=== PATIENT | male | born 1945 | race Native Hawaiian/Other Pacific Islander ===

== ENCOUNTER 2017-05-25 11:28 | Day surgery (SDC) | payer MEDICARE, BC ==
[2017-05-25 12:27] VITALS: BP 145/68; PULSE 87; TEMP 97.6
[2017-05-25 12:54] LABS: PROTHROMBIN TIME 10.9 SECONDS (9.7-12.2)
[2017-05-25] MEDS ORDERED: Lidocaine 1% w Epi 1:100,000 Inj ONE (12:59)
[2017-05-25] MEDS ORDERED: Iodixanol 320 MG/ML 200 ML BOTTLE IV ONE (12:59)
[2017-05-25 13:07] LABS: CALCIUM 9.2 mg/dl (8.6-10.4)
[2017-05-25] MEDS ORDERED: Midazolam 2 MG/2 ML VIAL ONE (13:20)
[2017-05-25] MEDS ORDERED: Iodixanol 320 MG/ML 100 ML BOTTLE IV ONE (15:17)
--- NOTE | 2017-05-25 15:50 | PCM.SURG1 ---
Surgeon's Initial Post Op Note - Surgeon's Notes Surgeon: katty [employer] Specialist: 0 Type of Anesthesia: IV Sedation Anesthesia Administered By: melissa Pre-Operative Diagnosis: ischemic foot ulcer left foot Operative Findings: focal 99% stenosis proximal popliteal artery. anterior tibial main vessel to foot , pt occluded peroneal diseased. perclose right Post-Operative Diagnosis: same Operation Performed: aortofemoral angiogram via right groin. selective catherization of left femoral artery. pathway atherectomy, dcb, and supera stent to left distal sfa/ popliteal. perclose right Specimen/Specimens Removed: 0 Estimated Blood Loss: EBL {In ML}: 100 Blood Products Given: N/A Drains Used: No Drains Post-Op Condition: Good Date of Surgery/Procedure: 05/25/17 Time of Surgery/Procedure: 15:52
--- NOTE | 2017-05-26 10:09 | OP ---
DATE: 05/25/2017 PREOPERATIVE DIAGNOSIS: Ischemic ulcer of left foot. PROCEDURES CARRIED OUT: Aortofemoral angiogram of the right groin with selective catheterization of the left femoral artery, pathway atherectomy, drug-coated balloon angioplasty, and then, subsequent placement of a Supera stent in the left proximal popliteal and distal superficial femoral artery. SURGEON: Kulwant Macias Jr., MD ASSISTANTS: None. ANESTHESIOLOGIST: Suresh Anderson DO ANESTHESIA: Local with sedation. INDICATIONS: The patient is a 72-year-old male, [place], on dialysis who presents with ischemic ulcers on the foot. OPERATIVE FINDINGS: The aorta, renal arteries, iliac arteries, common femoral arteries, and proximal portions of superficial femoral arteries are free of any significant occlusive disease. In the left leg, there was a focal stenosis at Derrek canal over 99%, just across the bone. Distal to this on the left leg, the posterior tibial artery was occluded, did not reconstitute the foot. The peroneal artery was diseased at its course and the anterior tibia provided most of the blood flow into the left foot. On the right side, detailed pictures were not taken below the knee, but basically showed a somewhat similar pattern. Subsequent to the performance of the diagnostic arteriogram, a stiff-angled guidewire was advanced over the aortic bifurcation and a 7-Spanish sheath placed into the distal portion of the superficial femoral artery. Using the roadmapping techniques, the lesion was crossed. Then, the patient was heparinized. The Pathway atherectomy device was used to open this and then, this was treated with drug-coated balloon and then subsequently primarily because this was an occlusion, we then deployed a Supera stent. We had placed a filter wire distally and as we attempted to do the filter wire, the Supera stent somehow became meshed and the wire was somewhat elongated at this point. We had to place additional stents. We eventually were able to get the filter wire out. Subsequently, there was a small gap between the stents and we had to place another stent in between. Nonetheless at the end of this, we had excellent apposition of the stent to the wall, we had brisk and free flow to the area of this previous stenosis/occlusion and good brisk flow into the foot without any residual defect. The operation was carried out. We then deployed a Perclose device in the right groin with good success. OPERATIONS CARRIED OUT: 1. Aortofemoral angiogram via right groin with selective catheterization of the left femoral artery. 2. Pathway atherectomy, drug-coated balloon angioplasty and deployment of Supera stent in the proximal popliteal left superficial femoral artery and deployment of Perclose device. Kulwant Macias Jr., MD cc: Dr. June Cavanaugh DPM
[2017-06-01 16:11] VITALS: RESP 22; O2SAT 98
== END 2017-05-25 19:00 | disposition home or self-care (01) ==
LOC: C.SPRAD 11:28
PROVIDERS: ATTEND Surgery Vascular Surgery
DX: L97.529 Non-pressure chronic ulcer of other part of left foot with unspecified severity (principal); Z99.2 Dependence on renal dialysis
CPT/HCPCS: 36218; 36415; 37227; 80048; 85610; 85730; C1724; C1725; C1766; C1769; C1876; C1884; C1887; C2623; J1644; J2250; J3010; Q9966; Q9967

== ENCOUNTER 2017-08-22 07:35 | Inpatient (IN) | payer BC, MEDICARE ==
--- NOTE | 2017-08-22 08:37 | C.PDOC ---
History Of Present Illness 72 y/o male with htn, dm, esrd on hd, last on Sat, due tomorrow, presents with non healing ulcers to left foot. pt has taken po antibiotics with no improvement. Time Seen by Provider: 08/22/17 08:01 Chief Complaint (Nursing): Abnormal Skin Integrity History Per: Patient History/Exam Limitations: no limitations Onset/Duration Of Symptoms: Days Current Symptoms Are (Timing): Still Present Past Medical History Reviewed: Historical Data, Nursing Documentation, Vital Signs Vital Signs: Last Vital Signs Temp 98.8 F 08/22/17 16:00 Pulse 84 08/22/17 16:00 Resp 20 08/22/17 16:00 BP 147/76 08/22/17 17:30 Pulse Ox 99 08/22/17 16:00 - Medical History PMH: HTN, Hypercholesterolemia, Chronic Kidney Disease Surgical History: No Surg Hx Family History: States: No Known Family Hx - Social History Hx Alcohol Use: No Hx Substance Use: No - Immunization History Hx Tetanus Toxoid Vaccination: No Hx Influenza Vaccination: No Hx Pneumococcal Vaccination: No Review Of Systems Cardiovascular: Negative for: Chest Pain Respiratory: Negative for: Shortness of Breath Musculoskeletal: Positive for: Foot Pain Skin: Negative for: Rash Neurological: Negative for: Weakness, Numbness Physical Exam - Physical Exam Appears: Non-toxic, No Acute Distress Skin: Warm, Dry, No Rash Head: Atraumatic, Normacephalic Oral Mucosa: Moist Neck: Normal ROM, Supple Cardiovascular: Rhythm Irregular Respiratory: Normal Breath Sounds, No Rales, No Rhonchi, No Wheezing Gastrointestinal/Abdominal: Soft, No Tenderness, No Guarding, No Rebound Extremity: Capillary Refill (<2 seconds), No Deformity, Other (AV fistular to right upper arm w/palpable thrill. Left lateral malleolus 1/2 dollar size ulcer. Open malodorous ulceration w/white sticky discharge along 5th matatarsal. ) Pulses: Left Dorsalis Pedis: Normal, Right Dorsalis Pedis: Normal Neurological/Psych: Oriented x3, Normal Motor, Normal Sensation ED Course And Treatment - Laboratory Results Result Diagrams: 08/22/17 09:05 08/22/17 10:02 O2 Sat by Pulse Oximetry: 98 (RA) Pulse Ox Interpretation: Normal Medical Decision Making Medical Decision Making: discussed with Dr Seema Watkins, will admit to her service, and get podiatry consult Dr Cavanaugh. Disposition - Disposition Disposition: HOSPITALIZED Disposition Time: 11:55 Condition: GOOD - Clinical Impression Clinical Impression: Infected ulcer of skin - PA / LOCOMOTIVE REPAIRER DIESEL / Resident Statement MD/DO has reviewed & agrees with the documentation as recorded. - Scribe Statement The provider has reviewed the documentation as recorded by the Micaibtyson Simpson All medical record entries made by the Chavez were at my direction and personally dictated by me. I have reviewed the chart and agree that the record accurately reflects my personal performance of the history, physical exam, medical decision making, and the department course for this patient. I have also personally directed, reviewed, and agree with the discharge instructions and disposition.
[2017-08-22 09:13] LABS: BASO % 0.4 % (0.0-2.0); EOS # 0.2 K/uL (0.0-0.7); EOS % 2.1 % (0.0-4.0); HEMOGLOBIN 10.9 g/dL (12.0-18.0); LYMPH # 0.5 K/uL (1.0-4.3); MEAN CORPUSCULAR HEMOGLOBIN 31.1 pg (27.0-31.0); MEAN CORPUSCULAR HGB CONC 32.4 g/dL (33.0-37.0); MEAN PLATELET VOLUME 8.4 fL (7.2-11.7); MONO # 0.7 K/uL (0.0-0.8); MONO % 7.9 % (0.0-10.0); NEUT # 7.8 K/uL (1.8-7.0); NEUT % 84.6 % (50.0-75.0); NRBC % 0.1 % (0.0-2.0); PLATELET COUNT 218 K/uL (130-400); RBC 3.52 Mil/uL (4.40-5.90); RED CELL DISTRIBUTION WIDTH 15.7 % (11.5-14.5); WHITE BLOOD COUNT 9.2 K/uL (4.8-10.8)
[2017-08-22 09:24] LABS: INR 1.3; PROTHROMBIN TIME 14.4 SECONDS (9.7-12.2)
--- NOTE | 2017-08-22 09:29 | RAD ---
Chest x-ray single frontal view History: Shortness of breath. Comparison: None available. Findings: Moderate venous congestion with patchy bibasilar airspace opacities. Small right pleural effusion. Right hilar prominence. Biapical pleural thickening with upper lobe granulomatous changes. Small nodular density projecting over the medial right lung apex. Calcification at the aortic knob. Mild cardiomegaly. Degenerative changes in the spine and shoulders. Right axillary stent in place. Impression: Moderate venous congestion with patchy bibasilar airspace opacities. Small right pleural effusion. Right hilar prominence. Biapical pleural thickening with upper lobe granulomatous changes. Small nodular density projecting over the medial right lung apex. Calcification at the aortic knob. Mild cardiomegaly. Degenerative changes in the spine and shoulders. Right axillary stent in place.
--- NOTE | 2017-08-22 09:41 | RAD ---
Left foot three views History: Ulcer. Comparison: None available. Findings: Large soft tissue ulceration seen at the lateral aspect of the midfoot from the midshaft of the 5th metatarsal bone to the level of the cuboid bone. Cortical irregularity seen along the lateral cortex at the base of the 5th metatarsal bone with some sclerosis. This may represent osteomyelitis, possibly acute on chronic. Correlation with MRI may be helpful if clinically indicated. Extensive vascular calcifications. Mild hallux valgus deformity. Degenerative changes in the midfoot. Plantar and dorsal calcaneal spurring. Impression: 1. Large soft tissue ulceration seen at the lateral aspect of the midfoot from the midshaft of the 5th metatarsal bone to the level of the cuboid bone. Cortical irregularity seen along the lateral cortex at the base of the 5th metatarsal bone with some sclerosis. This may represent osteomyelitis, possibly acute on chronic. Correlation with MRI may be helpful if clinically indicated. 2. Extensive vascular calcifications. 3. Mild hallux valgus deformity. 4. Degenerative changes in the midfoot. 5. Plantar and dorsal calcaneal spurring.
[2017-08-22] MEDS ORDERED: Piperacillin/Tazobact 3.375 gm 100 ML IVPB STA (09:50)
[2017-08-22 10:04] LABS: ANISOCYTOSIS SLIGHT; EOSINOPHIL 3 % (0-4); HYPOCHROMIC SLIGHT; LYMPHOCYTE 4 % (20-40); MONOCYTE 4 % (0-10); NEUTROPHIL 89 % (50-75); PLATELET ESTIMATE NORMAL (NORMAL); POLYCHROMIC SLIGHT; TOTAL CELLS COUNTED 100
[2017-08-22] MEDS ORDERED: Piperacillin/Tazobact 3.375 gm 100 ML IVPB ONE (10:19)
[2017-08-22] MEDS ORDERED: Vancomycin 1 GM 1 GM/250 ML BAG IVPB ONE (10:19)
[2017-08-22 10:21] LABS: ALB/GLOB RATIO 0.7 (1.0-2.1); ALBUMIN 3.1 g/dL (3.5-5.0); AST/SGOT 19 U/L (17-59); BLOOD UREA NITROGEN 46 mg/dL (9-20); CALCIUM 9.1 mg/dl (8.6-10.4); GFR AFRICAN-AMERICAN 12; GFR NON-AFRICAN AMERICAN 10
[2017-08-22 10:22] LABS: ALT/SGPT < 6 U/L (21-72)
[2017-08-22] MEDS ORDERED: Vancomycin 1 gm/NS 200 ml 1 GM/200 ML BAG IVPB ONE (11:00)
--- NOTE | 2017-08-22 11:26 | CP.PCM.CON ---
History of Present Illness - History of Present Illness History of Present Illness: hx of esrd cad severe pvd admitted with gangrene left foot / OM needs OR/ debridment when stable IV antibiotics ordered prognosis guarded Review of Systems - Review of Systems All systems: reviewed and no additional remarkable complaints except Past Patient History - Past Medical History & Family History Past Medical History?: Yes - Past Social History Smoking Status: Never Smoked - CARDIAC Hx Hypercholesterolemia: Yes Hx Hypertension: Yes - PULMONARY Hx Respiratory Disorders: No - NEUROLOGICAL Hx Neurological Disorder: No - HEENT Hx HEENT Problems: Yes Hx Cataracts: Yes (BILAT.) - RENAL Hx Chronic Kidney Disease: Yes - ENDOCRINE/METABOLIC Hx Endocrine Disorders: Yes Hx Diabetes Mellitus Type 2: Yes - HEMATOLOGICAL/ONCOLOGICAL Hx Blood Disorders: No - INTEGUMENTARY Hx Dermatological Problems: No - MUSCULOSKELETAL/RHEUMATOLOGICAL Hx Musculoskeletal Disorders: No - GASTROINTESTINAL Hx Gastrointestinal Disorders: No - GENITOURINARY/GYNECOLOGICAL Hx Genitourinary Disorders: No - PSYCHIATRIC Hx Substance Use: No - SURGICAL HISTORY Hx Surgeries: Yes Hx Arteriovenous Shunt: Yes (AV FISTULA RIGHT ARM) Hx Cataract Extraction: Yes (BILAT.) - ANESTHESIA Hx Anesthesia: Yes Hx Anesthesia Reactions: No Hx Malignant Hyperthermia: No Meds Allergies/Adverse Reactions: Allergies Allergy/AdvReac Type Severity Reaction Status Date / Time No Known Allergies Allergy Verified 05/23/17 15:07 - Medications Medications: Current Medications Vancomycin/Sodium Chloride (Vancomycin 1 Gm/Ns 200 Ml) 1 gm in 200 mls @ 133.333 mls/hr IVPB ONCE ONE PRN Reason: Protocol Stop: 08/22/17 12:29 Vancomycin HCl 1 gm/ Sodium (Chloride) 250 mls @ 166.7 mls/hr IVPB TUTHSA DON PRN Reason: Protocol Physical Exam - Constitutional Appears: Chronically Ill - Head Exam Head Exam: ATRAUMATIC - Eye Exam Eye Exam: PERRL - ENT Exam ENT Exam: Mucous Membranes Dry, Normal Oropharynx - Neck Exam Neck exam: Negative for: Lymphadenopathy - Respiratory Exam Respiratory Exam: Decreased Breath Sounds, Rhonchi - Cardiovascular Exam Cardiovascular Exam: REGULAR RHYTHM, +S1, +S2 - GI/Abdominal Exam GI & Abdominal Exam: Diminished Bowel Sounds, Soft. absent: Tenderness - Rectal Exam Rectal Exam: Deferred - Exam Exam: NORMAL INSPECTION - Extremities Exam Extremities exam: Positive for: pedal edema, tenderness. Negative for: calf tenderness, pedal pulses present Additional comments: ;arge ulcer lateral left foot with foul smelling exudate and pus - Back Exam Back exam: absent: CVA tenderness (L), CVA tenderness (R) - Neurological Exam Neurological exam: Alert, CN II-XII Intact, Oriented x3, Reflexes Normal - Psychiatric Exam Psychiatric exam: Depressed - Skin Skin Exam: Dry Results - Vital Signs Recent Vital Signs: Last Vital Signs Temp 98.6 F 08/22/17 11:09 Pulse 85 08/22/17 11:09 Resp 20 08/22/17 11:09 BP 170/86 H 08/22/17 11:09 Pulse Ox 94 L 08/22/17 11:09 - Labs Result Diagrams: 08/26/17 06:56 08/26/17 06:56 Labs: Laboratory Results - last 24 hr 08/22/17 08/22/17 08/22/17 09:05 09:05 10:02 WBC 9.2 RBC 3.52 L Hgb 10.9 L Hct 33.8 L MCV 96.0 H MCH 31.1 H MCHC 32.4 L RDW 15.7 H Plt Count 218 MPV 8.4 Neut % (Auto) 84.6 H Lymph % (Auto) 5.0 L [place] % (Auto) 7.9 Eos % (Auto) 2.1 Baso % (Auto) 0.4 Neut # (Auto) 7.8 H Lymph # (Auto) 0.5 L [place] # (Auto) 0.7 Eos # (Auto) 0.2 Baso # (Auto) 0.0 Neutrophils % (Manual) 89 H Lymphocytes % (Manual) 4 L Monocytes % (Manual) 4 Eosinophils % (Manual) 3 Platelet Estimate Normal Polychromasia Slight Hypochromasia (manual) Slight Anisocytosis (manual) Slight PT 14.4 H INR 1.3 APTT 38 H Sodium 137 Potassium 4.2 Chloride 96 L Carbon Dioxide 30 Anion Gap 15 BUN 46 H Creatinine 5.7 H Est GFR ( Amer) 12 Est GFR (Non-Af Amer) 10 Random Glucose 252 H Calcium 9.1 Total Bilirubin 0.6 AST 19 ALT < 6 L Alkaline Phosphatase 135 H Total Protein 7.4 Albumin 3.1 L Globulin 4.3 H Albumin/Globulin Ratio 0.7 L Assessment & Plan (1) Atrial fibrillation Status: Acute (2) ESRD (end stage renal disease) on dialysis Status: Acute (3) Gangrene associated with type 2 diabetes mellitus Status: Acute (4) Infected ulcer of skin Status: Acute (5) Non-insulin dependent type 2 diabetes mellitus Status: Acute (6) PVD (peripheral vascular disease) Status: Acute - Assessment and Plan (Free Text) Assessment: needs OR and IV rx for OM severe PVD- needs vascular re-eval
[2017-08-22] MEDS ORDERED: Piperacill/Tazo 2.25gm in Dex 2.25 GM/50 ML BAG IVPB SCH (11:30)
[2017-08-22] MEDS ORDERED: (Novolin R) Insulin Human Regular 100 units/ml vial SC SCH (13:01)
--- NOTE | 2017-08-22 15:40 | CP.PCM.CON ---
History of Present Illness - History of Present Illness History of Present Illness: Vascular surgery consult note for Dr. Macias Consulted for: chronic left foot wound with history of PVD Patient is a 72M with PMH of PVD with a stent placed by Dr. 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 Patient has had the ulcer for several months. Denies fevers and chills. PMH: DM, HTN, PVD, ESRD on HD, CAD PSH: Left leg angiocatheterization with stents ALL: NKDA Social: denies substances Review of Systems - Review of Systems All systems: reviewed and no additional remarkable complaints except (as per HPI ) Past Patient History - Past Medical History & Family History Past Medical History?: Yes - Past Social History Smoking Status: Never Smoked Alcohol: None Drugs: Denies - CARDIAC Hx Hypercholesterolemia: Yes Hx Hypertension: Yes - PULMONARY Hx Respiratory Disorders: No - NEUROLOGICAL Hx Neurological Disorder: No - HEENT Hx HEENT Problems: Yes Hx Cataracts: Yes (BILAT.) - RENAL Hx Chronic Kidney Disease: Yes - ENDOCRINE/METABOLIC Hx Endocrine Disorders: Yes Hx Diabetes Mellitus Type 2: Yes - HEMATOLOGICAL/ONCOLOGICAL Hx Blood Disorders: No - INTEGUMENTARY Hx Dermatological Problems: No - MUSCULOSKELETAL/RHEUMATOLOGICAL Hx Musculoskeletal Disorders: No - GASTROINTESTINAL Hx Gastrointestinal Disorders: No - GENITOURINARY/GYNECOLOGICAL Hx Genitourinary Disorders: No - PSYCHIATRIC Hx Substance Use: No - SURGICAL HISTORY Hx Surgeries: Yes Hx Arteriovenous Shunt: Yes (AV FISTULA RIGHT ARM) Hx Cataract Extraction: Yes (BILAT.) - ANESTHESIA Hx Anesthesia: Yes Hx Anesthesia Reactions: No Hx Malignant Hyperthermia: No Meds Allergies/Adverse Reactions: Allergies Allergy/AdvReac Type Severity Reaction Status Date / Time No Known Allergies Allergy Verified 05/23/17 15:07 - Medications Medications: Current Medications Calcium Acetate (Phoslo) 1,334 mg PO TID [facility] Last Admin: 08/22/17 14:19 Dose: 1,334 mg Glipizide (Glucotrol) 5 mg PO TIDAC [facility] Vancomycin/Sodium Chloride (Vancomycin 1 Gm/Ns 200 Ml) 1 gm in 200 mls @ 166.7 mls/hr IVPB TUTHSA DON PRN Reason: Protocol Stop: 08/28/17 10:01 Piperacillin Sod/Tazobactam Sod (Zosyn 2.25 Gm Iv Premix) 2.25 gm in 50 mls @ 100 mls/hr IVPB Q8H DON PRN Reason: Protocol Insulin Aspart (Novolog) 0 unit SC ACHS DON PRN Reason: Protocol Losartan Potassium (Cozaar) 50 mg PO DAILY DON Metoprolol Tartrate (Lopressor) 25 mg PO BID DON Rosuvastatin Calcium (Crestor) 5 mg PO HS DON Physical Exam - Constitutional Appears: Well, Non-toxic, No Acute Distress - Head Exam Head Exam: ATRAUMATIC, NORMOCEPHALIC - Eye Exam Eye Exam: Normal appearance. absent: Conjunctival injection, Scleral icterus - ENT Exam ENT Exam: Mucous Membranes Moist, Normal Oropharynx - Respiratory Exam Respiratory Exam: NORMAL BREATHING PATTERN. absent: Accessory Muscle Use, Respiratory Distress - Cardiovascular Exam Cardiovascular Exam: RRR - GI/Abdominal Exam GI & Abdominal Exam: absent: Distended - Extremities Exam Extremities exam: Negative for: calf tenderness, pedal edema Additional comments: Strong DP and PT auscultated on doppler Ulceration on the lateral edge of the left foot with eschar of necrotic tissue partially over the wound, foul smell, posterior left heel ulceration as well - Neurological Exam Neurological exam: Alert, Oriented x3 - Psychiatric Exam Psychiatric exam: Normal Affect, Normal Mood - Skin Skin Exam: Dry, Intact (except as noted above), Normal Color, Warm Results - Vital Signs Recent Vital Signs: Last Vital Signs Temp 97.4 F L 08/22/17 12:10 Pulse 85 08/22/17 12:10 Resp 20 08/22/17 12:10 BP 178/79 H 08/22/17 12:10 Pulse Ox 93 L 08/22/17 12:10 - Labs Result Diagrams: 08/22/17 09:05 08/22/17 10:02 Labs: Laboratory Results - last 24 hr 08/22/17 08/22/17 08/22/17 09:05 09:05 10:02 WBC 9.2 RBC 3.52 L Hgb 10.9 L Hct 33.8 L MCV 96.0 H MCH 31.1 H MCHC 32.4 L RDW 15.7 H Plt Count 218 MPV 8.4 Neut % (Auto) 84.6 H Lymph % (Auto) 5.0 L [place] % (Auto) 7.9 Eos % (Auto) 2.1 Baso % (Auto) 0.4 Neut # (Auto) 7.8 H Lymph # (Auto) 0.5 L [place] # (Auto) 0.7 Eos # (Auto) 0.2 Baso # (Auto) 0.0 Neutrophils % (Manual) 89 H Lymphocytes % (Manual) 4 L Monocytes % (Manual) 4 Eosinophils % (Manual) 3 Platelet Estimate Normal Polychromasia Slight Hypochromasia (manual) Slight Anisocytosis (manual) Slight PT 14.4 H INR 1.3 APTT 38 H Sodium 137 Potassium 4.2 Chloride 96 L Carbon Dioxide 30 Anion Gap 15 BUN 46 H Creatinine 5.7 H Est GFR ( Amer) 12 Est GFR (Non-Af Amer) 10 POC Glucose (mg/dL) Random Glucose 252 H Calcium 9.1 Total Bilirubin 0.6 AST 19 ALT < 6 L Alkaline Phosphatase 135 H Total Protein 7.4 Albumin 3.1 L Globulin 4.3 H Albumin/Globulin Ratio 0.7 L 08/22/17 12:37 WBC RBC Hgb Hct MCV MCH MCHC RDW Plt Count MPV Neut % (Auto) Lymph % (Auto) [place] % (Auto) Eos % (Auto) Baso % (Auto) Neut # (Auto) Lymph # (Auto) [place] # (Auto) Eos # (Auto) Baso # (Auto) Neutrophils % (Manual) Lymphocytes % (Manual) Monocytes % (Manual) Eosinophils % (Manual) Platelet Estimate Polychromasia Hypochromasia (manual) Anisocytosis (manual) PT INR APTT Sodium Potassium Chloride Carbon Dioxide Anion Gap BUN Creatinine Est GFR ( Amer) Est GFR (Non-Af Amer) POC Glucose (mg/dL) 227 H Random Glucose Calcium Total Bilirubin AST ALT Alkaline Phosphatase Total Protein Albumin Globulin Albumin/Globulin Ratio Assessment & Plan - Assessment and Plan (Free Text) Assessment: 72M with chronic left foot ulcers and history of PVD Plan: -CTA or arterial duplex to evaluate the vasculature patency in the left lower extremity depending on kidney function -Further vascular surgical intervention pending imaging results -Local wound care per podiatry -IV antibiotics Discussed with DR. Gilberto Ulloa, PGY2
[2017-08-22] MEDS: (Novolog) Insulin Aspart, Recombinant 100 u/ml 10 ml vial SC SCH ×2 (17:30→22:29)
[2017-08-22] MEDS: Piperacill/Tazo 2.25gm in Dex 2.25 GM/50 ML BAG IVPB SCH (19:19)
--- NOTE | 2017-08-22 20:13 | CP.PCM.CON ---
<TavoEdmond - Last Filed: 08/22/17 20:09> History of Present Illness - History of Present Illness History of Present Illness: Podiatry Consult Note- Dr. Cavanaugh 72 year old male referred to ED by attending, Dr Cavanaugh, for chronic left foot ulcer. Patient has had the ulcer for several months, for which Dr. Cavanaugh has been treating him. Pt has developed redness and mal-odor from and area which has exposed bone. Due to worsening presentation, attending is seeking advanced treatment. Pt deeis any pain to the area of complain. He denies recent fevers, chills, chest pain,sob, nausea, vomiting, and diarrhea. PMH: DM, HTN, PVD, ESRD on HD, CAD PSH: Left leg angiocatheterization with stents ALL: NKDA Social: denies substances Review of Systems - Review of Systems All systems: reviewed and no additional remarkable complaints except Past Patient History - Past Medical History & Family History Past Medical History?: Yes - Past Social History Smoking Status: Never Smoked Alcohol: None Drugs: Denies - CARDIAC Hx Hypercholesterolemia: Yes Hx Hypertension: Yes - PULMONARY Hx Respiratory Disorders: No - NEUROLOGICAL Hx Neurological Disorder: No - HEENT Hx HEENT Problems: Yes Hx Cataracts: Yes (BILAT.) - RENAL Hx Chronic Kidney Disease: Yes - ENDOCRINE/METABOLIC Hx Endocrine Disorders: Yes Hx Diabetes Mellitus Type 2: Yes - HEMATOLOGICAL/ONCOLOGICAL Hx Blood Disorders: No - INTEGUMENTARY Hx Dermatological Problems: No - MUSCULOSKELETAL/RHEUMATOLOGICAL Hx Musculoskeletal Disorders: No - GASTROINTESTINAL Hx Gastrointestinal Disorders: No - GENITOURINARY/GYNECOLOGICAL Hx Genitourinary Disorders: No - PSYCHIATRIC Hx Substance Use: No - SURGICAL HISTORY Hx Surgeries: Yes Hx Arteriovenous Shunt: Yes (AV FISTULA RIGHT ARM) Hx Cataract Extraction: Yes (BILAT.) - ANESTHESIA Hx Anesthesia: Yes Hx Anesthesia Reactions: No Hx Malignant Hyperthermia: No Meds Allergies/Adverse Reactions: Allergies Allergy/AdvReac Type Severity Reaction Status Date / Time No Known Allergies Allergy Verified 05/23/17 15:07 - Medications Medications: Current Medications Calcium Acetate (Phoslo) 1,334 mg PO TID [facility] Last Admin: 08/22/17 17:58 Dose: 1,334 mg Glipizide (Glucotrol) 5 mg PO TIDAC [facility] Last Admin: 08/22/17 17:30 Dose: 5 mg Vancomycin/Sodium Chloride (Vancomycin 1 Gm/Ns 200 Ml) 1 gm in 200 mls @ 166.7 mls/hr IVPB TUTHSA DON PRN Reason: Protocol Stop: 08/28/17 10:01 Piperacillin Sod/Tazobactam Sod (Zosyn 2.25 Gm Iv Premix) 2.25 gm in 50 mls @ 100 mls/hr IVPB Q8H DON PRN Reason: Protocol Last Admin: 08/22/17 19:19 Dose: 100 mls/hr Insulin Aspart (Novolog) 0 unit SC ACHS DON PRN Reason: Protocol Last Admin: 08/22/17 17:30 Dose: 1 unit Losartan Potassium (Cozaar) 50 mg PO DAILY DON Metoprolol Tartrate (Lopressor) 25 mg PO BID [facility] Last Admin: 08/22/17 17:30 Dose: 25 mg Rosuvastatin Calcium (Crestor) 5 mg PO HS [facility] Physical Exam - Constitutional Appears: Well, Non-toxic, No Acute Distress - Neurological Exam Neurological exam: Alert - Psychiatric Exam Psychiatric exam: Normal Affect, Normal Mood Results - Vital Signs Recent Vital Signs: Last Vital Signs Temp 98.8 F 08/22/17 16:00 Pulse 84 08/22/17 16:00 Resp 20 08/22/17 16:00 BP 147/76 08/22/17 17:30 Pulse Ox 98 08/22/17 18:48 - Labs Result Diagrams: 08/22/17 09:05 08/22/17 10:02 Labs: Laboratory Results - last 24 hr 08/22/17 08/22/17 08/22/17 09:05 09:05 10:02 WBC 9.2 RBC 3.52 L Hgb 10.9 L Hct 33.8 L MCV 96.0 H MCH 31.1 H MCHC 32.4 L RDW 15.7 H Plt Count 218 MPV 8.4 Neut % (Auto) 84.6 H Lymph % (Auto) 5.0 L [place] % (Auto) 7.9 Eos % (Auto) 2.1 Baso % (Auto) 0.4 Neut # (Auto) 7.8 H Lymph # (Auto) 0.5 L [place] # (Auto) 0.7 Eos # (Auto) 0.2 Baso # (Auto) 0.0 Neutrophils % (Manual) 89 H Lymphocytes % (Manual) 4 L Monocytes % (Manual) 4 Eosinophils % (Manual) 3 Platelet Estimate Normal Polychromasia Slight Hypochromasia (manual) Slight Anisocytosis (manual) Slight PT 14.4 H INR 1.3 APTT 38 H Sodium 137 Potassium 4.2 Chloride 96 L Carbon Dioxide 30 Anion Gap 15 BUN 46 H Creatinine 5.7 H Est GFR ( Amer) 12 Est GFR (Non-Af Amer) 10 POC Glucose (mg/dL) Random Glucose 252 H Calcium 9.1 Total Bilirubin 0.6 AST 19 ALT < 6 L Alkaline Phosphatase 135 H Total Protein 7.4 Albumin 3.1 L Globulin 4.3 H Albumin/Globulin Ratio 0.7 L 08/22/17 08/22/17 12:37 16:43 WBC RBC Hgb Hct MCV MCH MCHC RDW Plt Count MPV Neut % (Auto) Lymph % (Auto) [place] % (Auto) Eos % (Auto) Baso % (Auto) Neut # (Auto) Lymph # (Auto) [place] # (Auto) Eos # (Auto) Baso # (Auto) Neutrophils % (Manual) Lymphocytes % (Manual) Monocytes % (Manual) Eosinophils % (Manual) Platelet Estimate Polychromasia Hypochromasia (manual) Anisocytosis (manual) PT INR APTT Sodium Potassium Chloride Carbon Dioxide Anion Gap BUN Creatinine Est GFR ( Amer) Est GFR (Non-Af Amer) POC Glucose (mg/dL) 227 H 158 H Random Glucose Calcium Total Bilirubin AST ALT Alkaline Phosphatase Total Protein Albumin Globulin Albumin/Globulin Ratio Assessment & Plan - Assessment and Plan (Free Text) Assessment: Left lateral foot Torrez grade 3 ulceration secondary to diabetes. Plan: Pt seen and evaluated, with attending, Dr. Cavanaugh. Chart, labs, and vitals reviewed. Afebrile, WBC=9.2. IV antibiotics per ID. Surgical podiatric intervention indicated. Left foot debridement indicated. Pt discussed need for surgical intervention with Dr. Cavanaugh. Pt opted for surgical intervention after explanation of risks, benefits, complications and alternatives. Left foot Wet to dry saline & DSD dressing applied. Pt to OR 08/24/17 in afternoon for debridement. -Medical clearance requested. Podiatry will follow pt while inhouse. - Date & Time Date: 08/22/17 Time: 12:50 <Alfredo Cavanaugh - Last Filed: 08/23/17 08:26> Meds - Medications Medications: Current Medications Calcium Acetate (Phoslo) 1,334 mg PO TID [facility] Last Admin: 08/22/17 17:58 Dose: 1,334 mg Glipizide (Glucotrol) 5 mg PO TIDAC [facility] Last Admin: 08/23/17 08:14 Dose: 5 mg Vancomycin/Sodium Chloride (Vancomycin 1 Gm/Ns 200 Ml) 1 gm in 200 mls @ 166.7 mls/hr IVPB TUTHSA [facility] PRN Reason: Protocol Stop: 08/28/17 10:01 Piperacillin Sod/Tazobactam Sod (Zosyn 2.25 Gm Iv Premix) 2.25 gm in 50 mls @ 100 mls/hr IVPB Q8H DON PRN Reason: Protocol Last Admin: 08/23/17 02:50 Dose: 100 mls/hr Insulin Aspart (Novolog) 0 unit SC ACHS [facility] PRN Reason: Protocol Last Admin: 08/23/17 08:14 Dose: 1 unit Losartan Potassium (Cozaar) 50 mg PO DAILY [facility] Metoprolol Tartrate (Lopressor) 25 mg PO BID [facility] Last Admin: 08/22/17 17:30 Dose: 25 mg Rosuvastatin Calcium (Crestor) 5 mg PO HS [facility] Last Admin: 08/22/17 21:41 Dose: 5 mg Results - Vital Signs Recent Vital Signs: Last Vital Signs Temp 98.1 F 08/23/17 07:38 Pulse 87 08/23/17 07:38 Resp 20 08/23/17 07:38 BP 153/71 H 08/23/17 07:38 Pulse Ox 95 08/23/17 07:38 - Labs Result Diagrams: 08/22/17 09:05 08/22/17 10:02 Labs: Laboratory Results - last 24 hr 08/22/17 08/22/17 08/22/17 09:05 09:05 10:02 WBC 9.2 RBC 3.52 L Hgb 10.9 L Hct 33.8 L MCV 96.0 H MCH 31.1 H MCHC 32.4 L RDW 15.7 H Plt Count 218 MPV 8.4 Neut % (Auto) 84.6 H Lymph % (Auto) 5.0 L [place] % (Auto) 7.9 Eos % (Auto) 2.1 Baso % (Auto) 0.4 Neut # (Auto) 7.8 H Lymph # (Auto) 0.5 L [place] # (Auto) 0.7 Eos # (Auto) 0.2 Baso # (Auto) 0.0 Neutrophils % (Manual) 89 H Lymphocytes % (Manual) 4 L Monocytes % (Manual) 4 Eosinophils % (Manual) 3 Platelet Estimate Normal Polychromasia Slight Hypochromasia (manual) Slight Anisocytosis (manual) Slight PT 14.4 H INR 1.3 APTT 38 H Sodium 137 Potassium 4.2 Chloride 96 L Carbon Dioxide 30 Anion Gap 15 BUN 46 H Creatinine 5.7 H Est GFR ( Amer) 12 Est GFR (Non-Af Amer) 10 POC Glucose (mg/dL) Random Glucose 252 H Calcium 9.1 Total Bilirubin 0.6 AST 19 ALT < 6 L Alkaline Phosphatase 135 H Total Protein 7.4 Albumin 3.1 L Globulin 4.3 H Albumin/Globulin Ratio 0.7 L 08/22/17 08/22/17 08/22/17 12:37 16:43 21:39 WBC RBC Hgb Hct MCV MCH MCHC RDW Plt Count MPV Neut % (Auto) Lymph % (Auto) [place] % (Auto) Eos % (Auto) Baso % (Auto) Neut # (Auto) Lymph # (Auto) [place] # (Auto) Eos # (Auto) Baso # (Auto) Neutrophils % (Manual) Lymphocytes % (Manual) Monocytes % (Manual) Eosinophils % (Manual) Platelet Estimate Polychromasia Hypochromasia (manual) Anisocytosis (manual) PT INR APTT Sodium Potassium Chloride Carbon Dioxide Anion Gap BUN Creatinine Est GFR ( Amer) Est GFR (Non-Af Amer) POC Glucose (mg/dL) 227 H 158 H 224 H Random Glucose Calcium Total Bilirubin AST ALT Alkaline Phosphatase Total Protein Albumin Globulin Albumin/Globulin Ratio 08/23/17 07:34 WBC RBC Hgb Hct MCV MCH MCHC RDW Plt Count MPV Neut % (Auto) Lymph % (Auto) [place] % (Auto) Eos % (Auto) Baso % (Auto) Neut # (Auto) Lymph # (Auto) [place] # (Auto) Eos # (Auto) Baso # (Auto) Neutrophils % (Manual) Lymphocytes % (Manual) Monocytes % (Manual) Eosinophils % (Manual) Platelet Estimate Polychromasia Hypochromasia (manual) Anisocytosis (manual) PT INR APTT Sodium Potassium Chloride Carbon Dioxide Anion Gap BUN Creatinine Est GFR ( Amer) Est GFR (Non-Af Amer) POC Glucose (mg/dL) 179 H Random Glucose Calcium Total Bilirubin AST ALT Alkaline Phosphatase Total Protein Albumin Globulin Albumin/Globulin Ratio Attending/Attestation - Attestation I have personally seen and examined this patient.: Yes I have fully participated in the care of the patient.: Yes I have reviewed all pertinent clinical information: Yes Notes (Text): 08/23/17 08:25 Pt scheduled for wed at 1pm for debridement of left foot and ankle ulcers and application of Amniox skin graft.
--- NOTE | 2017-08-23 00:06 | CP.PCM.HP ---
History of Present Illness - History of Present Illness History of Present Illness: 72 years old [place] male hospitalized for debridement of a left foot ulcer . He is known to have a NIDDM, a chronic atrial fibrillation, an ESRD on HD, a HPTN,a PAD with s/p stent to the left SFA. Present on Admission - Present on Admission Any Indicators Present on Admission: No Review of Systems - Integumentary Integumentary: Non-Healing Lesions, Skin Ulcer Additional comments: Non healing ulcer of the left foot. Past Patient History - Tetanus Immunizations Tetanus Immunization: Unknown - Past Medical History & Family History Past Medical History?: Yes - Past Social History Smoking Status: Never Smoked Alcohol: None Drugs: Denies Home Situation {Lives}: With Family Domestic Violence: Negative - CARDIAC Hx Hypercholesterolemia: Yes Hx Hypertension: Yes - PULMONARY Hx Respiratory Disorders: No - NEUROLOGICAL Hx Neurological Disorder: No - HEENT Hx HEENT Problems: Yes Hx Cataracts: Yes (BILAT.) - RENAL Hx Chronic Kidney Disease: Yes - ENDOCRINE/METABOLIC Hx Endocrine Disorders: Yes Hx Diabetes Mellitus Type 2: Yes - HEMATOLOGICAL/ONCOLOGICAL Hx Blood Disorders: No - INTEGUMENTARY Hx Dermatological Problems: No - MUSCULOSKELETAL/RHEUMATOLOGICAL Hx Musculoskeletal Disorders: No - GASTROINTESTINAL Hx Gastrointestinal Disorders: No - GENITOURINARY/GYNECOLOGICAL Hx Genitourinary Disorders: No - PSYCHIATRIC Hx Substance Use: No - SURGICAL HISTORY Hx Surgeries: Yes Hx Arteriovenous Shunt: Yes (AV FISTULA RIGHT ARM) Hx Cataract Extraction: Yes (BILAT.) - ANESTHESIA Hx Anesthesia: Yes Hx Anesthesia Reactions: No Hx Malignant Hyperthermia: No Meds Allergies/Adverse Reactions: Allergies Allergy/AdvReac Type Severity Reaction Status Date / Time No Known Allergies Allergy Verified 05/23/17 15:07 Physical Exam - Constitutional Appears: No Acute Distress, Chronically Ill - Head Exam Head Exam: NORMAL INSPECTION - Eye Exam Eye Exam: Normal appearance Pupil Exam: NORMAL ACCOMODATION - ENT Exam ENT Exam: Normal Exam - Neck Exam Neck exam: Positive for: Normal Inspection - Respiratory Exam Respiratory Exam: Clear to Auscultation Bilateral - Cardiovascular Exam Cardiovascular Exam: Tachycardia, Irregular Rhythm - GI/Abdominal Exam GI & Abdominal Exam: Normal Bowel Sounds, Soft - Rectal Exam Rectal Exam: Deferred - Exam Exam: NORMAL INSPECTION - Extremities Exam Additional comments: Non-healing ulcer of the left foot. - Back Exam Back exam: NORMAL INSPECTION - Neurological Exam Neurological exam: Alert, Oriented x3 - Psychiatric Exam Psychiatric exam: Anxious - Skin Additional comments: Ulcer of the left foot. Results - Vital Signs Recent Vital Signs: Last Vital Signs Temp 98.8 F 08/22/17 16:00 Pulse 84 08/22/17 16:00 Resp 20 08/22/17 16:00 BP 147/76 08/22/17 17:30 Pulse Ox 98 08/22/17 18:48 - Labs Result Diagrams: 08/22/17 09:05 08/22/17 10:02 Labs: Laboratory Results - last 24 hr 08/22/17 08/22/17 08/22/17 09:05 09:05 10:02 WBC 9.2 RBC 3.52 L Hgb 10.9 L Hct 33.8 L MCV 96.0 H MCH 31.1 H MCHC 32.4 L RDW 15.7 H Plt Count 218 MPV 8.4 Neut % (Auto) 84.6 H Lymph % (Auto) 5.0 L [place] % (Auto) 7.9 Eos % (Auto) 2.1 Baso % (Auto) 0.4 Neut # (Auto) 7.8 H Lymph # (Auto) 0.5 L [place] # (Auto) 0.7 Eos # (Auto) 0.2 Baso # (Auto) 0.0 Neutrophils % (Manual) 89 H Lymphocytes % (Manual) 4 L Monocytes % (Manual) 4 Eosinophils % (Manual) 3 Platelet Estimate Normal Polychromasia Slight Hypochromasia (manual) Slight Anisocytosis (manual) Slight PT 14.4 H INR 1.3 APTT 38 H Sodium 137 Potassium 4.2 Chloride 96 L Carbon Dioxide 30 Anion Gap 15 BUN 46 H Creatinine 5.7 H Est GFR ( Amer) 12 Est GFR (Non-Af Amer) 10 POC Glucose (mg/dL) Random Glucose 252 H Calcium 9.1 Total Bilirubin 0.6 AST 19 ALT < 6 L Alkaline Phosphatase 135 H Total Protein 7.4 Albumin 3.1 L Globulin 4.3 H Albumin/Globulin Ratio 0.7 L 08/22/17 08/22/17 08/22/17 12:37 16:43 21:39 WBC RBC Hgb Hct MCV MCH MCHC RDW Plt Count MPV Neut % (Auto) Lymph % (Auto) [place] % (Auto) Eos % (Auto) Baso % (Auto) Neut # (Auto) Lymph # (Auto) [place] # (Auto) Eos # (Auto) Baso # (Auto) Neutrophils % (Manual) Lymphocytes % (Manual) Monocytes % (Manual) Eosinophils % (Manual) Platelet Estimate Polychromasia Hypochromasia (manual) Anisocytosis (manual) PT INR APTT Sodium Potassium Chloride Carbon Dioxide Anion Gap BUN Creatinine Est GFR ( Amer) Est GFR (Non-Af Amer) POC Glucose (mg/dL) 227 H 158 H 224 H Random Glucose Calcium Total Bilirubin AST ALT Alkaline Phosphatase Total Protein Albumin Globulin Albumin/Globulin Ratio Assessment & Plan (1) Infected ulcer of skin Assessment and Plan: On IV antibiotics by Dr Bailey. Status: Acute (2) Non-insulin dependent type 2 diabetes mellitus Assessment and Plan: To continue Glipizide, and Novolog S/C. Status: Acute (3) ESRD (end stage renal disease) on dialysis Assessment and Plan: HD as per polygraph operator Status: Acute (4) Atrial fibrillation Assessment and Plan: To hold Eliquis for planned debridement of the left foot ulcer. Status: Acute Decision To Admit - Pt Status Changed To: Hospital Disposition Of: Inpatient - Admit Certification Admit to Inpatient:: After my assessment, the patient will require hospitalization for at least two midnights. This is because of the severity of symptoms shown, intensity of services needed, and/or the medical risk in this patient being treated as an outpatient. - InPatient: Physician Admission Certification:: After my assessements, the patient requires hospitalization for at least 2 midnights. - . Bed Request Type: Regular Admitting Physician: Oz Watkins
[2017-08-23] MEDS: Piperacill/Tazo 2.25gm in Dex 2.25 GM/50 ML BAG IVPB SCH ×3 (02:50→19:29)
[2017-08-23] MEDS: (Novolog) Insulin Aspart, Recombinant 100 u/ml 10 ml vial SC SCH ×5 (08:04→21:47)
[2017-08-23] MEDS ORDERED: Iodixanol 320 mg/ml 150 ml Bottle IV ONE (09:00)
--- NOTE | 2017-08-23 09:37 | CP.PCM.PN ---
<Sabrina Lim - Last Filed: 08/23/17 10:39> Objective - Vital Signs/Intake and Output Vital Signs (last 24 hours): Temp Pulse Resp BP Pulse Ox 98.1 F 87 20 153/71 H 95 08/23/17 07:38 08/23/17 07:38 08/23/17 07:38 08/23/17 07:38 08/23/17 07:38 Intake and Output: 08/23/17 08/23/17 06:59 18:59 Intake Total 480 Balance 480 - Medications Medications: Current Medications Calcium Acetate (Phoslo) 1,334 mg PO TID [facility] Last Admin: 08/23/17 10:21 Dose: 1,334 mg Glipizide (Glucotrol) 5 mg PO TIDAC [facility] Last Admin: 08/23/17 08:14 Dose: 5 mg Vancomycin/Sodium Chloride (Vancomycin 1 Gm/Ns 200 Ml) 1 gm in 200 mls @ 166.7 mls/hr IVPB TUTHSA [facility] PRN Reason: Protocol Stop: 08/28/17 10:01 Piperacillin Sod/Tazobactam Sod (Zosyn 2.25 Gm Iv Premix) 2.25 gm in 50 mls @ 100 mls/hr IVPB Q8H DON PRN Reason: Protocol Last Admin: 08/23/17 02:50 Dose: 100 mls/hr Insulin Aspart (Novolog) 0 unit SC ACHS [facility] PRN Reason: Protocol Last Admin: 08/23/17 08:14 Dose: 1 unit Losartan Potassium (Cozaar) 50 mg PO DAILY [facility] Last Admin: 08/23/17 10:21 Dose: Not Given Metoprolol Tartrate (Lopressor) 25 mg PO BID [facility] Last Admin: 08/23/17 10:21 Dose: Not Given Rosuvastatin Calcium (Crestor) 5 mg PO HS [facility] Last Admin: 08/22/17 21:41 Dose: 5 mg - Labs Labs: 08/22/17 09:05 08/22/17 10:02 PT 14.4 SECONDS (9.7-12.2) H 08/22/17 09:05 INR 1.3 08/22/17 09:05 APTT 38 SECONDS (21-34) H 08/22/17 09:05 - Constitutional Appears: Well, Non-toxic, No Acute Distress - Head Exam Head Exam: ATRAUMATIC, NORMOCEPHALIC - Eye Exam Eye Exam: Normal appearance. absent: Conjunctival injection, Scleral icterus - ENT Exam ENT Exam: Mucous Membranes Moist, Normal Oropharynx - Respiratory Exam Respiratory Exam: Decreased Breath Sounds, NORMAL BREATHING PATTERN. absent: Accessory Muscle Use, Respiratory Distress <Carey Ulloa - Last Filed: 08/23/17 10:47> Subjective - Date & Time of Evaluation Date of Evaluation: 08/23/17 Time of Evaluation: 07:00 - Subjective Subjective: Patient seen and examined at bedside this AM. No adverse events overnight. Patient complains of foot pain well controlled Objective - Vital Signs/Intake and Output Vital Signs (last 24 hours): Temp Pulse Resp BP Pulse Ox 98.1 F 87 20 153/71 H 95 08/23/17 07:38 08/23/17 07:38 08/23/17 07:38 08/23/17 07:38 08/23/17 07:38 Intake and Output: 08/23/17 08/23/17 06:59 18:59 Intake Total 480 Balance 480 - Medications Medications: Current Medications Calcium Acetate (Phoslo) 1,334 mg PO TID [facility] Last Admin: 08/22/17 17:58 Dose: 1,334 mg Glipizide (Glucotrol) 5 mg PO TIDAC [facility] Last Admin: 08/23/17 08:14 Dose: 5 mg Vancomycin/Sodium Chloride (Vancomycin 1 Gm/Ns 200 Ml) 1 gm in 200 mls @ 166.7 mls/hr IVPB TUTHSA [facility] PRN Reason: Protocol Stop: 08/28/17 10:01 Piperacillin Sod/Tazobactam Sod (Zosyn 2.25 Gm Iv Premix) 2.25 gm in 50 mls @ 100 mls/hr IVPB Q8H [facility] PRN Reason: Protocol Last Admin: 08/23/17 02:50 Dose: 100 mls/hr Insulin Aspart (Novolog) 0 unit SC ACHS [facility] PRN Reason: Protocol Last Admin: 08/23/17 08:14 Dose: 1 unit Losartan Potassium (Cozaar) 50 mg PO DAILY [facility] Metoprolol Tartrate (Lopressor) 25 mg PO BID [facility] Last Admin: 08/22/17 17:30 Dose: 25 mg Rosuvastatin Calcium (Crestor) 5 mg PO HS [facility] Last Admin: 08/22/17 21:41 Dose: 5 mg - Labs Labs: 08/22/17 09:05 08/22/17 10:02 PT 14.4 SECONDS (9.7-12.2) H 08/22/17 09:05 INR 1.3 08/22/17 09:05 APTT 38 SECONDS (21-34) H 08/22/17 09:05 - Constitutional Appears: Well, Non-toxic, No Acute Distress - Head Exam Head Exam: NORMOCEPHALIC - Cardiovascular Exam Cardiovascular Exam: RRR - GI/Abdominal Exam GI & Abdominal Exam: absent: Distended - Extremities Exam Extremities Exam: absent: Calf Tenderness, Pedal Edema, Tenderness Additional comments: ulceration of left heel and left lateral border of the foot with foul smelling discharge. Foot is warm with good capillary refill - Neurological Exam Neurological Exam: Alert, Awake, Oriented x3 - Psychiatric Exam Psychiatric exam: Normal Affect, Normal Mood - Skin Skin Exam: Dry, Normal Color, Warm Assessment and Plan - Assessment and Plan (Free Text) Assessment: 72M with non-healing ulcer of the left foot and history of PVD Plan: -Patient is cleared from a vascular standpoint for surgery from podiatry. Patient has good dopplerable signals in the left pedal pulses -F/U CTA and arterial duplex for further assessment--likely will be non- contributory to current pathology -PRN pain management -Medical Management per primary Discussed with Dr. Gilberto Ulloa [id number]
--- NOTE | 2017-08-23 09:49 | CP.PCM.PN ---
<Edmond Vo - Last Filed: 08/23/17 12:58> Subjective - Date & Time of Evaluation Date of Evaluation: 08/23/17 Time of Evaluation: 12:30 - Subjective Subjective: Podiatry Progress Note- Dr. Cavanaugh 72 year old male seen at bedside with attending, Dr. Cavanaugh, for chronic left foot ulcers. Pt is clically sameand reports no acute overnight events. Pt denies any pain to the area of complaint. He denies recent fevers, chills, chest pain,sob, nausea, vomiting, and diarrhea. Objective - Vital Signs/Intake and Output Vital Signs (last 24 hours): Temp Pulse Resp BP Pulse Ox 98.1 F 87 20 153/71 H 95 08/23/17 07:38 08/23/17 07:38 08/23/17 07:38 08/23/17 07:38 08/23/17 07:38 Intake and Output: 08/23/17 08/23/17 06:59 18:59 Intake Total 480 Balance 480 - Medications Medications: Current Medications Calcium Acetate (Phoslo) 1,334 mg PO TID [facility] Last Admin: 08/22/17 17:58 Dose: 1,334 mg Glipizide (Glucotrol) 5 mg PO TIDAC [facility] Last Admin: 08/23/17 08:14 Dose: 5 mg Vancomycin/Sodium Chloride (Vancomycin 1 Gm/Ns 200 Ml) 1 gm in 200 mls @ 166.7 mls/hr IVPB TUTHSA [facility] PRN Reason: Protocol Stop: 08/28/17 10:01 Piperacillin Sod/Tazobactam Sod (Zosyn 2.25 Gm Iv Premix) 2.25 gm in 50 mls @ 100 mls/hr IVPB Q8H [facility] PRN Reason: Protocol Last Admin: 08/23/17 02:50 Dose: 100 mls/hr Insulin Aspart (Novolog) 0 unit SC ACHS [facility] PRN Reason: Protocol Last Admin: 08/23/17 08:14 Dose: 1 unit Losartan Potassium (Cozaar) 50 mg PO DAILY [facility] Metoprolol Tartrate (Lopressor) 25 mg PO BID [facility] Last Admin: 08/22/17 17:30 Dose: 25 mg Rosuvastatin Calcium (Crestor) 5 mg PO HS [facility] Last Admin: 08/22/17 21:41 Dose: 5 mg - Labs Labs: 08/22/17 09:05 08/22/17 10:02 PT 14.4 SECONDS (9.7-12.2) H 08/22/17 09:05 INR 1.3 08/22/17 09:05 APTT 38 SECONDS (21-34) H 08/22/17 09:05 - Constitutional Appears: Well, Non-toxic, No Acute Distress - Extremities Exam Additional comments: Left leg focused. DERM: Left lateral midfoot full thickness ulceration measuring 6.8x3.2 with necrotic-fibrotic base. Heavy mal-odor noted, no purulent drainage noted. No underminig of margins, no raised border. Left lateral anle wound measring 2.6 x 2.8 superficial ulceration with 80% granular to 20% fibrotic ulcerative base. No mal-odor, no purulent drainage noted. No undermining of margins, no raised borders. Neuro vascular status intact to right foot with pedal sensation intact, 2/4 DP and PT pulses and CRF to all digits <3 seconds within normal limits. No gross deformities noted. Manual muscle testing greaded 5/5 in all lower leg and pedal muscle groups. - Neurological Exam Neurological Exam: Alert, Awake, Oriented x3 - Psychiatric Exam Psychiatric exam: Normal Affect, Normal Mood Assessment and Plan - Assessment and Plan (Free Text) Assessment: 72 year old male with left lateral foot Torrez grade 3 ulceration secondary to diabetes & PVD. Plan: Pt seen and evaluated, with attending, Dr. Cavanaugh. Chart, labs, and vitals reviewed. Afebrile, WBC=9.2. IV antibiotics per ID. CTA and arterial duplex results-pending Surgical podiatric intervention indicated. Left foot debridement of left foot and ankle ulcers and application of Amniox skin graft. -Pt discussed surgical intervention plan with Dr. Cavanaugh. Risks, benefits, potential outcomes, complicating factors, and complications reviewed. with Pt including loss of limb. Pt aware and opted to proceed with surgical procedure. Left foot Wet to dry saline & DSD dressing applied. Pt to OR Tuesday08/24/17 in afternoon for debridement. -Medical clearance requested. -Vascular clearance - pending Podiatry will follow pt while inhouse. <Alfredo Cavanaugh - Last Filed: 08/23/17 13:16> Objective - Vital Signs/Intake and Output Vital Signs (last 24 hours): Temp Pulse Resp BP Pulse Ox 98.1 F 87 20 153/71 H 95 08/23/17 07:38 08/23/17 07:38 08/23/17 07:38 08/23/17 07:38 08/23/17 07:38 Intake and Output: 08/23/17 08/23/17 06:59 18:59 Intake Total 480 Balance 480 - Medications Medications: Current Medications Calcium Acetate (Phoslo) 1,334 mg PO TID [facility] Last Admin: 08/23/17 10:21 Dose: 1,334 mg Epoetin Linden (Procrit) 4,000 unit IV TTS [facility] Glipizide (Glucotrol) 5 mg PO TIDAC [facility] Last Admin: 08/23/17 12:01 Dose: 5 mg Vancomycin/Sodium Chloride (Vancomycin 1 Gm/Ns 200 Ml) 1 gm in 200 mls @ 166.7 mls/hr IVPB TUTHSA [facility] PRN Reason: Protocol Stop: 08/28/17 10:01 Last Admin: 08/23/17 10:49 Dose: Not Given Piperacillin Sod/Tazobactam Sod (Zosyn 2.25 Gm Iv Premix) 2.25 gm in 50 mls @ 100 mls/hr IVPB Q8H [facility] PRN Reason: Protocol Last Admin: 08/23/17 12:00 Dose: 100 mls/hr Insulin Aspart (Novolog) 0 unit SC ACHS [facility] PRN Reason: Protocol Last Admin: 08/23/17 12:03 Dose: 3 unit Losartan Potassium (Cozaar) 50 mg PO DAILY [facility] Last Admin: 08/23/17 10:21 Dose: Not Given Metoprolol Tartrate (Lopressor) 25 mg PO BID [facility] Last Admin: 08/23/17 10:21 Dose: Not Given Rosuvastatin Calcium (Crestor) 5 mg PO HS [facility] Last Admin: 08/22/17 21:41 Dose: 5 mg - Labs Labs: 08/22/17 09:05 08/22/17 10:02 PT 14.4 SECONDS (9.7-12.2) H 08/22/17 09:05 INR 1.3 08/22/17 09:05 APTT 38 SECONDS (21-34) H 08/22/17 09:05 Attending/Attestation - Attestation I have personally seen and examined this patient.: Yes I have fully participated in the care of the patient.: Yes I have reviewed all pertinent clinical information, including history, physical exam and plan: Yes Notes (Text): 08/23/17 13:14 Pt seen at bedside with resident for left foot and ankle ulcers. Pt is scheduled for tomorrow at 1 PM for debridement of left foot, ankle and heel ulcers with application of artificial skin graft (Amniox). Pt understands that this is a limb salvage procedure and if healing is compromised future surgery and/or limb loss is possible. Pt has been cleared by Vascular to proceed with debridement. Awaiting medical clearance. Pre op orders will be written for NPO.
--- NOTE | 2017-08-23 09:52 | CP.PCM.CON ---
History of Present Illness - History of Present Illness History of Present Illness: Patient is a 72M with PMH of PVD with a stent placed by Dr. Macias in the left SFA and popliteal artery who was referred to the ER by his solution engineer for worsening left foot ulcer. Patient has had the ulcer for several months. Denies fevers and chills. Last hd tuesday, pt on TTS schedule, has lue avf for access PMH: DM, HTN, PVD, ESRD on HD, CAD, chronic a fib PSH: Left leg angiocatheterization with stents. lue av fistula ALL: NKDA Social: no toxic habits Review of Systems - Review of Systems All systems: reviewed and no additional remarkable complaints except (no n/v/d/ sob/cp/dizziness/headache/weakness/numbness/fevers/chills/cough/rash) Past Patient History - Tetanus Immunizations Tetanus Immunization: Unknown - Past Medical History & Family History Past Medical History?: Yes - Past Social History Smoking Status: Never Smoked Alcohol: None Drugs: Denies Home Situation {Lives}: With Family Domestic Violence: Negative - CARDIAC Hx Hypercholesterolemia: Yes Hx Hypertension: Yes - PULMONARY Hx Respiratory Disorders: No - NEUROLOGICAL Hx Neurological Disorder: No - HEENT Hx HEENT Problems: Yes Hx Cataracts: Yes (BILAT.) - RENAL Hx Chronic Kidney Disease: Yes - ENDOCRINE/METABOLIC Hx Endocrine Disorders: Yes Hx Diabetes Mellitus Type 2: Yes - HEMATOLOGICAL/ONCOLOGICAL Hx Blood Disorders: No - INTEGUMENTARY Hx Dermatological Problems: No - MUSCULOSKELETAL/RHEUMATOLOGICAL Hx Musculoskeletal Disorders: No - GASTROINTESTINAL Hx Gastrointestinal Disorders: No - GENITOURINARY/GYNECOLOGICAL Hx Genitourinary Disorders: No - PSYCHIATRIC Hx Substance Use: No - SURGICAL HISTORY Hx Surgeries: Yes Hx Arteriovenous Shunt: Yes (AV FISTULA RIGHT ARM) Hx Cataract Extraction: Yes (BILAT.) - ANESTHESIA Hx Anesthesia: Yes Hx Anesthesia Reactions: No Hx Malignant Hyperthermia: No Meds Allergies/Adverse Reactions: Allergies Allergy/AdvReac Type Severity Reaction Status Date / Time No Known Allergies Allergy Verified 05/23/17 15:07 - Medications Medications: Current Medications Calcium Acetate (Phoslo) 1,334 mg PO TID [facility] Last Admin: 08/22/17 17:58 Dose: 1,334 mg Glipizide (Glucotrol) 5 mg PO TIDAC [facility] Last Admin: 08/23/17 08:14 Dose: 5 mg Vancomycin/Sodium Chloride (Vancomycin 1 Gm/Ns 200 Ml) 1 gm in 200 mls @ 166.7 mls/hr IVPB TUTHSA [facility] PRN Reason: Protocol Stop: 08/28/17 10:01 Piperacillin Sod/Tazobactam Sod (Zosyn 2.25 Gm Iv Premix) 2.25 gm in 50 mls @ 100 mls/hr IVPB Q8H [facility] PRN Reason: Protocol Last Admin: 08/23/17 02:50 Dose: 100 mls/hr Insulin Aspart (Novolog) 0 unit SC ACHS [facility] PRN Reason: Protocol Last Admin: 08/23/17 08:14 Dose: 1 unit Losartan Potassium (Cozaar) 50 mg PO DAILY [facility] Metoprolol Tartrate (Lopressor) 25 mg PO BID [facility] Last Admin: 08/22/17 17:30 Dose: 25 mg Rosuvastatin Calcium (Crestor) 5 mg PO HS [facility] Last Admin: 08/22/17 21:41 Dose: 5 mg Physical Exam - Constitutional Appears: Non-toxic, No Acute Distress, Chronically Ill - Head Exam Head Exam: ATRAUMATIC, NORMAL INSPECTION - Eye Exam Eye Exam: Normal appearance Pupil Exam: PERRL - ENT Exam ENT Exam: Mucous Membranes Moist, Normal Exam - Neck Exam Neck exam: Positive for: Normal Inspection - Respiratory Exam Respiratory Exam: Clear to Auscultation Bilateral, NORMAL BREATHING PATTERN - Cardiovascular Exam Cardiovascular Exam: Irregular Rhythm - GI/Abdominal Exam GI & Abdominal Exam: Distended, Normal Bowel Sounds - Extremities Exam Additional comments: lue avf w/ thrill dressing left foot Results - Vital Signs Recent Vital Signs: Last Vital Signs Temp 98.1 F 08/23/17 07:38 Pulse 87 08/23/17 07:38 Resp 20 08/23/17 07:38 BP 153/71 H 08/23/17 07:38 Pulse Ox 95 08/23/17 07:38 - Labs Result Diagrams: 08/22/17 09:05 08/22/17 10:02 Labs: Laboratory Results - last 24 hr 08/22/17 08/22/17 08/22/17 09:05 10:02 12:37 Neutrophils % (Manual) 89 H Lymphocytes % (Manual) 4 L Monocytes % (Manual) 4 Eosinophils % (Manual) 3 Platelet Estimate Normal Polychromasia Slight Hypochromasia (manual) Slight Anisocytosis (manual) Slight Sodium 137 Potassium 4.2 Chloride 96 L Carbon Dioxide 30 Anion Gap 15 BUN 46 H Creatinine 5.7 H Est GFR ( Amer) 12 Est GFR (Non-Af Amer) 10 POC Glucose (mg/dL) 227 H Random Glucose 252 H Calcium 9.1 Total Bilirubin 0.6 AST 19 ALT < 6 L Alkaline Phosphatase 135 H Total Protein 7.4 Albumin 3.1 L Globulin 4.3 H Albumin/Globulin Ratio 0.7 L 08/22/17 08/22/17 08/23/17 16:43 21:39 07:34 Neutrophils % (Manual) Lymphocytes % (Manual) Monocytes % (Manual) Eosinophils % (Manual) Platelet Estimate Polychromasia Hypochromasia (manual) Anisocytosis (manual) Sodium Potassium Chloride Carbon Dioxide Anion Gap BUN Creatinine Est GFR ( Amer) Est GFR (Non-Af Amer) POC Glucose (mg/dL) 158 H 224 H 179 H Random Glucose Calcium Total Bilirubin AST ALT Alkaline Phosphatase Total Protein Albumin Globulin Albumin/Globulin Ratio Assessment & Plan (1) Atrial fibrillation Status: Acute (2) ESRD (end stage renal disease) on dialysis Status: Acute (3) Infected ulcer of skin Status: Acute (4) Non-insulin dependent type 2 diabetes mellitus Status: Acute - Assessment and Plan (Free Text) Assessment: maintain hd tts schedule, today after ct angiogram f/u vascular and ID recs bp acceptable hgb acceptable, lytes acceptable
[2017-08-23] MEDS: Vancomycin 1 gm/NS 200 ml 1 GM/200 ML BAG IVPB SCH ×2 (10:49→16:01)
--- NOTE | 2017-08-23 11:03 | CP.PCM.PN ---
Subjective - Date & Time of Evaluation Date of Evaluation: 08/23/17 Time of Evaluation: 07:00 - Subjective Subjective: denies pain dry ulcer left heel necrotic foul smelling ulcer left lat foot Objective - Vital Signs/Intake and Output Vital Signs (last 24 hours): Temp Pulse Resp BP Pulse Ox 98.1 F 87 20 153/71 H 95 08/23/17 07:38 08/23/17 07:38 08/23/17 07:38 08/23/17 07:38 08/23/17 07:38 Intake and Output: 08/23/17 08/23/17 06:59 18:59 Intake Total 480 Balance 480 - Medications Medications: Current Medications Calcium Acetate (Phoslo) 1,334 mg PO TID [facility] Last Admin: 08/23/17 10:21 Dose: 1,334 mg Glipizide (Glucotrol) 5 mg PO TIDAC [facility] Last Admin: 08/23/17 08:14 Dose: 5 mg Vancomycin/Sodium Chloride (Vancomycin 1 Gm/Ns 200 Ml) 1 gm in 200 mls @ 166.7 mls/hr IVPB TUTHSA [facility] PRN Reason: Protocol Stop: 08/28/17 10:01 Last Admin: 08/23/17 10:49 Dose: Not Given Piperacillin Sod/Tazobactam Sod (Zosyn 2.25 Gm Iv Premix) 2.25 gm in 50 mls @ 100 mls/hr IVPB Q8H [facility] PRN Reason: Protocol Last Admin: 08/23/17 02:50 Dose: 100 mls/hr Insulin Aspart (Novolog) 0 unit SC ACHS [facility] PRN Reason: Protocol Last Admin: 08/23/17 08:14 Dose: 1 unit Losartan Potassium (Cozaar) 50 mg PO DAILY [facility] Last Admin: 08/23/17 10:21 Dose: Not Given Metoprolol Tartrate (Lopressor) 25 mg PO BID [facility] Last Admin: 08/23/17 10:21 Dose: Not Given Rosuvastatin Calcium (Crestor) 5 mg PO HS [facility] Last Admin: 08/22/17 21:41 Dose: 5 mg - Labs Labs: 08/22/17 09:05 08/22/17 10:02 PT 14.4 SECONDS (9.7-12.2) H 08/22/17 09:05 INR 1.3 08/22/17 09:05 APTT 38 SECONDS (21-34) H 08/22/17 09:05 - Constitutional Appears: Non-toxic, Chronically Ill - Head Exam Head Exam: NORMOCEPHALIC - Eye Exam Eye Exam: PERRL - ENT Exam ENT Exam: Mucous Membranes Dry - Neck Exam Neck Exam: absent: Lymphadenopathy - Respiratory Exam Respiratory Exam: Decreased Breath Sounds - Cardiovascular Exam Cardiovascular Exam: REGULAR RHYTHM - GI/Abdominal Exam GI & Abdominal Exam: Distended - Rectal Exam Rectal Exam: Deferred - Exam Exam: NORMAL INSPECTION - Extremities Exam Extremities Exam: Pedal Edema. absent: Calf Tenderness, Normal Inspection, Tenderness - Back Exam Back Exam: absent: CVA tenderness (L), CVA tenderness (R), paraspinal tenderness - Neurological Exam Neurological Exam: Alert, Awake, Oriented x3 Neuro motor strength exam: Left Upper Extremity: 3, Right Upper Extremity: 3, Left Lower Extremity: 3, Right Lower Extremity: 3 - Psychiatric Exam Psychiatric exam: Depressed Assessment and Plan (1) Gangrene associated with type 2 diabetes mellitus Status: Acute (2) Atrial fibrillation Status: Acute (3) ESRD (end stage renal disease) on dialysis Status: Acute (4) Non-insulin dependent type 2 diabetes mellitus Status: Acute - Assessment and Plan (Free Text) Assessment: severe pvd with gangrenous ulcer left foot prognosis for limb salvage guarded
[2017-08-23] MEDS ORDERED: Vancomycin 1 gm/NS 200 ml 1 GM/200 ML BAG IVPB SCH (11:25)
--- NOTE | 2017-08-23 14:22 | CT ---
PROCEDURE: CT Angiography Abdomen, Pelvis and Lower Extremity with Contrast HISTORY: pvd left leg COMPARISON: CT angiography of the bilateral lower extremities dated 05/09/2017. TECHNIQUE: Technique: CT angiography of the abdomen, pelvis and bilateral lower extremities performed in the arterial phase of enhancement. Coronal and sagittal reformats, and well as rotating MIP images of the vessels generated at the workstation. Intravenous contrast dose: 150 mL Visipaque 320 Radiation dose: Total exam DLP = 1262.8 mGy-cm. This CT exam was performed using one or more of the following dose reduction techniques: Automated exposure control, adjustment of the mA and/or kV according to patient size, and/or use of iterative reconstruction technique. FINDINGS: CT ANGIOGRAPHY: ABDOMINAL AORTA:: Calcific atherosclerosis without aneurysm or stenosis MAJOR AORTIC BRANCHES: Celiac Torrance: Calcific atherosclerosis, but patent. Superior mesenteric artery: Calcific atherosclerosis, but patent. Inferior mesenteric artery: Calcific atherosclerosis, but patent. Renal arteries: Small in caliber right renal artery with ostial calcific atherosclerosis. Pain left renal artery. PELVIC ARTERIES: Right Common Iliac: Calcific atherosclerosis, but patent. Right External Iliac: Calcific atherosclerosis, but patent. Right Internal Iliac: Calcific atherosclerosis, but patent. Left Common Iliac: Calcific atherosclerosis, but patent. Left External Iliac: Calcific atherosclerosis, but patent. Left Internal Iliac: Calcific atherosclerosis, but patent. RIGHT LOWER EXTREMITY ARTERIES: Right Common Femoral: Calcific atherosclerosis, but patent. Right Superficial Femoral: Calcific atherosclerosis, but patent. Mild to moderate short-segment stenosis at the femoral-popliteal junction. Right Profunda Femoris: Calcific atherosclerosis, but patent. Right Popliteal:Calcific atherosclerosis, but patent. Mild to moderate short-segment stenosis at the femoral-popliteal junction. Right Anterior Tibial: Severe focal stenosis/ near occlusion proximally, otherwise patent. Right Tibioperoneal Trunk: Calcific atherosclerosis, but patent. Right Posterior Tibial: Calcific atherosclerosis, but patent. Right Peroneal: Calcific atherosclerosis, but patent. Right dorsalis pedis : Calcific atherosclerosis, but patent. LEFT LOWER EXTREMITY ARTERIES: Left Common Femoral: Calcific atherosclerosis, but patent. Left Superficial Femoral: Calcific atherosclerosis, but patent. Patent indwelling mid/ distal stent, new from the prior study. Left Profunda Femoris: Calcific atherosclerosis, but patent. Left Popliteal: Calcific atherosclerosis, but patent. Patent indwelling proximal stent, new from the prior study. Left Anterior Tibial: Calcific atherosclerosis, but patent. Left Tibioperoneal Trunk: Calcific atherosclerosis, with focal severe stenosis before bifurcation. Left Posterior Tibial: Occluded from origin. Heavy arterial wall calcifications limits assessment for distal reconstitution. Left Peroneal: Calcific atherosclerosis, but patent. Left Dorsalis pedis: Calcific atherosclerosis, but patent. NON-ANGIOGRAPHIC ASPECT OF THE EXAM: LOWER THORAX: Moderate right and small left pleural effusions with subjacent atelectasis. Cardiomegaly. LIVER: Unremarkable. No gross lesion or ductal dilatation. GALLBLADDER AND BILE DUCTS: Unremarkable. PANCREAS: Unremarkable. No gross lesion or ductal dilatation. SPLEEN: Unremarkable. ADRENALS: Unremarkable. No mass. KIDNEYS AND URETERS: Unremarkable. No hydronephrosis. No solid mass. STOMACH AND BOWEL: Unremarkable. No obstruction. No gross mural thickening. APPENDIX: Normal appendix. PERITONEUM: Small volume pelvic ascites. Small amount of fluid in the left pericolic gutter No free air. LYMPH NODES: Unremarkable. No enlarged lymph nodes. BLADDER: Unremarkable. REPRODUCTIVE: Unremarkable. BONES: No acute fracture. OTHER FINDINGS: Subcutaneous gas near the left 5th digit in the foot. IMPRESSION: Right lower extremity: Diffuse calcific atherosclerosis. Mild to moderate short-segment stenosis at the femoral-popliteal junction, similar to the prior study. Severe focal stenosis/ near occlusion of the proximal right anterior tibial artery, similar to the prior study. Three-vessel runoff to the foot. Left lower extremity: Diffuse calcific atherosclerosis. Interval placement of a stent extending from the mid superficial femoral artery to the popliteal artery. Focal severe stenosis of the tibioperoneal trunk, just before the bifurcation, similar to the prior study. Stable occlusion of the left posterior tibial artery with limited evaluation of the mid/distal portions due to heavy arterial wall calcifications. Two-vessel runoff to the foot. Stable stenosis of the right renal artery ostium with small caliber main renal artery. Subcutaneous gas near the 5th digit in the left foot. Moderate right and small left pleural effusions with subjacent atelectasis. Nonspecific small volume pelvic ascites and fluid in the left pericolic gutter
[2017-08-23] MEDS: EPOETIN ALFA 4,000 UNIT/ML ML Dialysis IV SCH (14:58)
--- NOTE | 2017-08-23 20:23 | CP.PCM.PN ---
Subjective - Date & Time of Evaluation Date of Evaluation: 08/23/17 Time of Evaluation: 20:21 - Subjective Subjective: Patient has no complaint. A Persantine nuclear myocardial perfusion imaging on did not reveal any myocardial ischemia induced by IV Persantine. For a debridement of the left foot and ankle ulcer in AM. Objective - Vital Signs/Intake and Output Vital Signs (last 24 hours): Temp Pulse Resp BP Pulse Ox 98.7 F 84 12 131/80 96 08/23/17 17:20 08/23/17 17:20 08/23/17 17:20 08/23/17 18:54 08/23/17 17:20 Intake and Output: 08/23/17 08/24/17 18:59 06:59 Intake Total 530 Balance 530 - Medications Medications: Current Medications Calcium Acetate (Phoslo) 1,334 mg PO TID [facility] Last Admin: 08/23/17 18:53 Dose: 1,334 mg Epoetin Linden (Procrit) 4,000 unit IV TTS [facility] Last Admin: 08/23/17 14:58 Dose: 4,000 unit Glipizide (Glucotrol) 5 mg PO TIDAC [facility] Last Admin: 08/23/17 17:08 Dose: Not Given Vancomycin/Sodium Chloride (Vancomycin 1 Gm/Ns 200 Ml) 1 gm in 200 mls @ 166.7 mls/hr IVPB TUTHSA [facility] PRN Reason: Protocol Stop: 08/28/17 10:01 Last Admin: 08/23/17 16:01 Dose: 166.7 mls/hr Piperacillin Sod/Tazobactam Sod (Zosyn 2.25 Gm Iv Premix) 2.25 gm in 50 mls @ 100 mls/hr IVPB Q8H [facility] PRN Reason: Protocol Last Admin: 08/23/17 19:29 Dose: 100 mls/hr Insulin Aspart (Novolog) 0 unit SC ACHS [facility] PRN Reason: Protocol Last Admin: 08/23/17 16:47 Dose: Not Given Losartan Potassium (Cozaar) 50 mg PO DAILY [facility] Last Admin: 08/23/17 10:21 Dose: Not Given Metoprolol Tartrate (Lopressor) 25 mg PO BID [facility] Last Admin: 08/23/17 18:54 Dose: 25 mg Rosuvastatin Calcium (Crestor) 5 mg PO HS [facility] Last Admin: 08/22/17 21:41 Dose: 5 mg - Labs Labs: 08/22/17 09:05 08/22/17 10:02 PT 14.4 SECONDS (9.7-12.2) H 08/22/17 09:05 INR 1.3 08/22/17 09:05 APTT 38 SECONDS (21-34) H 08/22/17 09:05 - Head Exam Head Exam: NORMAL INSPECTION - Eye Exam Eye Exam: Normal appearance - ENT Exam ENT Exam: Normal Exam - Neck Exam Neck Exam: Normal Inspection - Respiratory Exam Respiratory Exam: Clear to Ausculation Bilateral, NORMAL BREATHING PATTERN - Cardiovascular Exam Cardiovascular Exam: Irregular Rhythm, Murmur - GI/Abdominal Exam GI & Abdominal Exam: Soft, Normal Bowel Sounds - Rectal Exam Rectal Exam: Deferred - Extremities Exam Additional comments: Foul-smelling ulcer of the left foot. - Back Exam Back Exam: NORMAL INSPECTION - Neurological Exam Neurological Exam: Alert, Awake, Oriented x3 - Psychiatric Exam Psychiatric exam: Anxious Assessment and Plan (1) Infected ulcer of skin Assessment & Plan: On IV antibiotics. For debridement in AM. Status: Acute (2) Non-insulin dependent type 2 diabetes mellitus Status: Acute (3) ESRD (end stage renal disease) on dialysis Status: Acute (4) Atrial fibrillation Assessment & Plan: Hold Eliquis for surgery in AM. Status: Acute
--- NOTE | 2017-08-23 21:51 | CARD ---
APPROVED REPORT EKG Measurement Heart [id number] <Conclusion> Atrial fibrillation Low voltage QRS Abnormal ECG
[2017-08-24] MEDS: Piperacill/Tazo 2.25gm in Dex 2.25 GM/50 ML BAG IVPB SCH ×3 (03:30→18:15)
[2017-08-24] MEDS: (Novolog) Insulin Aspart, Recombinant 100 u/ml 10 ml vial SC SCH ×4 (07:54→21:38)
[2017-08-24 08:27] LABS: ALB/GLOB RATIO 0.7 (1.0-2.1); ALBUMIN 2.9 g/dL (3.5-5.0); ALT/SGPT < 6 U/L (21-72); AST/SGOT 17 U/L (17-59); BLOOD UREA NITROGEN 32 mg/dL (9-20); GFR AFRICAN-AMERICAN 13; GFR NON-AFRICAN AMERICAN 11
--- NOTE | 2017-08-24 10:52 | CP.PCM.PN ---
Subjective - Date & Time of Evaluation Date of Evaluation: 08/24/17 Time of Evaluation: 10:50 - Subjective Subjective: seen and examined s/p ct angiogram s/p hd yesterday c/o left foot pain no f/c/sob/cp/n/v/d/dizziness/rash/headache Objective - Vital Signs/Intake and Output Vital Signs (last 24 hours): Temp Pulse Resp BP Pulse Ox 98.7 F 79 20 130/91 H 95 08/24/17 08:35 08/24/17 08:35 08/24/17 08:35 08/24/17 09:58 08/24/17 08:35 Intake and Output: 08/24/17 08/24/17 06:59 18:59 Intake Total 810 Balance 810 - Medications Medications: Current Medications Calcium Acetate (Phoslo) 1,334 mg PO TID [facility] Last Admin: 08/24/17 09:59 Dose: Not Given Epoetin Linden (Procrit) 4,000 unit IV TTS [facility] Last Admin: 08/23/17 14:58 Dose: 4,000 unit Glipizide (Glucotrol) 5 mg PO TIDAC [facility] Last Admin: 08/24/17 07:54 Dose: Not Given Vancomycin/Sodium Chloride (Vancomycin 1 Gm/Ns 200 Ml) 1 gm in 200 mls @ 166.7 mls/hr IVPB TUTHSA [facility] PRN Reason: Protocol Stop: 08/28/17 10:01 Last Admin: 08/23/17 16:01 Dose: 166.7 mls/hr Piperacillin Sod/Tazobactam Sod (Zosyn 2.25 Gm Iv Premix) 2.25 gm in 50 mls @ 100 mls/hr IVPB Q8H [facility] PRN Reason: Protocol Last Admin: 08/24/17 03:30 Dose: 100 mls/hr Insulin Aspart (Novolog) 0 unit SC ACHS [facility] PRN Reason: Protocol Last Admin: 08/24/17 07:54 Dose: Not Given Losartan Potassium (Cozaar) 50 mg PO DAILY [facility] Last Admin: 08/24/17 09:59 Dose: 50 mg Metoprolol Tartrate (Lopressor) 25 mg PO BID [facility] Last Admin: 08/24/17 09:58 Dose: 25 mg Rosuvastatin Calcium (Crestor) 5 mg PO HS [facility] Last Admin: 08/23/17 21:46 Dose: 5 mg - Labs Labs: 08/22/17 09:05 08/24/17 07:58 PT 14.4 SECONDS (9.7-12.2) H 08/22/17 09:05 INR 1.3 08/22/17 09:05 APTT 38 SECONDS (21-34) H 08/22/17 09:05 - Constitutional Appears: No Acute Distress, Chronically Ill - Head Exam Head Exam: NORMAL INSPECTION, NORMOCEPHALIC - Eye Exam Eye Exam: Normal appearance Pupil Exam: PERRL - ENT Exam ENT Exam: Mucous Membranes Moist, Normal Exam - Neck Exam Neck Exam: Normal Inspection - Respiratory Exam Respiratory Exam: Clear to Ausculation Bilateral, NORMAL BREATHING PATTERN - Cardiovascular Exam Cardiovascular Exam: Irregular Rhythm - GI/Abdominal Exam GI & Abdominal Exam: Distended, Soft, Diminished Bowel Sounds - Extremities Exam Extremities Exam: Normal Inspection (left heel in dressing. ) - Neurological Exam Neurological Exam: Alert, Awake, Oriented x3 - Psychiatric Exam Psychiatric exam: Normal Affect, Normal Mood - Skin Skin Exam: Dry, Warm Assessment and Plan (1) Atrial fibrillation Status: Acute (2) ESRD (end stage renal disease) on dialysis Status: Acute (3) Infected ulcer of skin Status: Acute (4) Non-insulin dependent type 2 diabetes mellitus Status: Acute - Assessment and Plan (Free Text) Assessment: severe pvd / non healing diabetic ulcer esrd htn dm a fib plan: maintain hd tts bp acceptable lytes acceptable surgical management, antibiotics
[2017-08-24] MEDS ORDERED: Bupivacaine HCl 0.5% PF (30 ml) Inj ONE (12:56)
[2017-08-24] MEDS ORDERED: Lidocaine Hydrochloride 10 ML INJ ONE ×2 (12:56→13:07)
[2017-08-24] MEDS ORDERED: Propofol 10 mg/ml Inj (20 ML) ONE (13:04)
[2017-08-24] MEDS ORDERED: Sodium Chloride 0.9% 20 ML IV ONE (13:07)
[2017-08-24] MEDS ORDERED: Bacitracin Ointment 30 GM TUBE ONE (14:01)
--- NOTE | 2017-08-24 14:26 | PCM.SURG1 ---
Surgeon's Initial Post Op Note - Surgeon's Notes Surgeon: Dr. Alfredo Cavanaugh DPM [employer] Sprinkler Installer: Dr. Edmond Vo, PGY2 Type of Anesthesia: IV Sedation, Local Anesthesia Administered By: Dr. Alen MD Pre-Operative Diagnosis: Left foot ulcerations x3 Operative Findings: See dictation Post-Operative Diagnosis: 1) Left foot ulcertions x 3. 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 Operation Performed: Left foot ulcer debridements with graft application Specimen/Specimens Removed: 1) Leftt foot soft tissue. 2) Left foot 5th metatarsal bone Estimated Blood Loss: EBL {In ML}: 10 Blood Products Given: N/A Drains Used: No Drains Post-Op Condition: Good Date of Surgery/Procedure: 08/24/17 Time of Surgery/Procedure: 14:15
[2017-08-24] MEDS ORDERED: Oxycodone/Acetaminophen 5/325 mg Tab PO PRN (14:30)
--- NOTE | 2017-08-24 17:57 | CP.PCM.PN ---
Subjective - Date & Time of Evaluation Date of Evaluation: 08/24/17 Time of Evaluation: 10:40 - Subjective Subjective: Patient seen and examined at bedside. Patient no complaints or concerns Objective - Vital Signs/Intake and Output Vital Signs (last 24 hours): Temp Pulse Resp BP Pulse Ox 97.4 F L 62 20 150/76 99 08/24/17 16:05 08/24/17 16:05 08/24/17 16:05 08/24/17 17:47 08/24/17 16:05 Intake and Output: 08/24/17 08/24/17 06:59 18:59 Intake Total 810 260 Balance 810 260 - Medications Medications: Current Medications Calcium Acetate (Phoslo) 1,334 mg PO TID [facility] Last Admin: 08/24/17 17:52 Dose: 1,334 mg Epoetin Linden (Procrit) 4,000 unit IV TTS [facility] Last Admin: 08/23/17 14:58 Dose: 4,000 unit Glipizide (Glucotrol) 5 mg PO TIDAC [facility] Last Admin: 08/24/17 17:42 Dose: 5 mg Vancomycin/Sodium Chloride (Vancomycin 1 Gm/Ns 200 Ml) 1 gm in 200 mls @ 166.7 mls/hr IVPB TUTHSA [facility] PRN Reason: Protocol Stop: 08/28/17 10:01 Last Admin: 08/23/17 16:01 Dose: 166.7 mls/hr Piperacillin Sod/Tazobactam Sod (Zosyn 2.25 Gm Iv Premix) 2.25 gm in 50 mls @ 100 mls/hr IVPB Q8H [facility] PRN Reason: Protocol Last Admin: 08/24/17 11:33 Dose: 100 mls/hr Insulin Aspart (Novolog) 0 unit SC ACHS [facility] PRN Reason: Protocol Last Admin: 08/24/17 17:45 Dose: 4 unit Losartan Potassium (Cozaar) 50 mg PO DAILY [facility] Last Admin: 08/24/17 09:59 Dose: 50 mg Metoprolol Tartrate (Lopressor) 25 mg PO BID [facility] Last Admin: 08/24/17 17:47 Dose: 25 mg Oxycodone/Acetaminophen (Percocet 5/325 Mg Tab) 1 tab PO Q4H PRN PRN Reason: Pain, moderate (4-7) Stop: 08/27/17 14:31 Rosuvastatin Calcium (Crestor) 5 mg PO HS [facility] Last Admin: 08/23/17 21:46 Dose: 5 mg - Labs Labs: 08/22/17 09:05 08/24/17 07:58 PT 14.4 SECONDS (9.7-12.2) H 08/22/17 09:05 INR 1.3 08/22/17 09:05 APTT 38 SECONDS (21-34) H 08/22/17 09:05 - Constitutional Appears: Well, Non-toxic, No Acute Distress - Head Exam Head Exam: ATRAUMATIC, NORMOCEPHALIC - Eye Exam Eye Exam: Normal appearance. absent: Conjunctival injection, Scleral icterus - ENT Exam ENT Exam: Mucous Membranes Moist - Respiratory Exam Respiratory Exam: NORMAL BREATHING PATTERN. absent: Accessory Muscle Use, Respiratory Distress - Extremities Exam Extremities Exam: absent: Pedal Edema Additional comments: dopplerable pulses - Neurological Exam Neurological Exam: Alert, Awake, Oriented x3 - Skin Skin Exam: Dry, Intact, Normal Color, Warm Assessment and Plan - Assessment and Plan (Free Text) Assessment: 72M with history of PVD with currently good blood flow to the left leg going to OR with podiatry Plan: -No vascular surgical intervention required--vascular flow adequate to affected limb -Patient is clear from a vasuclar standpoint for the OR -Local wound care per wound care nurse and podiatry Contact surgery team again for any other questions or concerns Discussed with Dr. Gilberto Ulloa, PGY2
--- NOTE | 2017-08-24 18:36 | CP.PCM.PN ---
Subjective - Date & Time of Evaluation Date of Evaluation: 08/24/17 Time of Evaluation: 07:00 - Subjective Subjective: s/p debridement left foot ulcer / bone + ESBL Klebs IV rx in progress Objective - Vital Signs/Intake and Output Vital Signs (last 24 hours): Temp Pulse Resp BP Pulse Ox 97.4 F L 62 20 150/76 99 08/24/17 16:05 08/24/17 16:05 08/24/17 16:05 08/24/17 17:47 08/24/17 16:05 Intake and Output: 08/24/17 08/24/17 06:59 18:59 Intake Total 810 260 Balance 810 260 - Medications Medications: Current Medications Calcium Acetate (Phoslo) 1,334 mg PO TID [facility] Last Admin: 08/24/17 17:52 Dose: 1,334 mg Epoetin Linden (Procrit) 4,000 unit IV TTS [facility] Last Admin: 08/23/17 14:58 Dose: 4,000 unit Glipizide (Glucotrol) 5 mg PO TIDAC [facility] Last Admin: 08/24/17 17:42 Dose: 5 mg Vancomycin/Sodium Chloride (Vancomycin 1 Gm/Ns 200 Ml) 1 gm in 200 mls @ 166.7 mls/hr IVPB TUTHSA [facility] PRN Reason: Protocol Stop: 08/28/17 10:01 Last Admin: 08/23/17 16:01 Dose: 166.7 mls/hr Insulin Aspart (Novolog) 0 unit SC ACHS [facility] PRN Reason: Protocol Last Admin: 08/24/17 17:45 Dose: 4 unit Losartan Potassium (Cozaar) 50 mg PO DAILY [facility] Last Admin: 08/24/17 09:59 Dose: 50 mg Metoprolol Tartrate (Lopressor) 25 mg PO BID [facility] Last Admin: 08/24/17 17:47 Dose: 25 mg Oxycodone/Acetaminophen (Percocet 5/325 Mg Tab) 1 tab PO Q4H PRN PRN Reason: Pain, moderate (4-7) Stop: 08/27/17 14:31 Rosuvastatin Calcium (Crestor) 5 mg PO HS [facility] Last Admin: 08/23/17 21:46 Dose: 5 mg - Labs Labs: 08/22/17 09:05 08/24/17 07:58 PT 14.4 SECONDS (9.7-12.2) H 08/22/17 09:05 INR 1.3 08/22/17 09:05 APTT 38 SECONDS (21-34) H 08/22/17 09:05 - Constitutional Appears: Non-toxic, Chronically Ill - Head Exam Head Exam: NORMOCEPHALIC - Eye Exam Eye Exam: PERRL - ENT Exam ENT Exam: Mucous Membranes Dry - Neck Exam Neck Exam: absent: Lymphadenopathy - Respiratory Exam Respiratory Exam: Decreased Breath Sounds - Cardiovascular Exam Cardiovascular Exam: REGULAR RHYTHM - GI/Abdominal Exam GI & Abdominal Exam: Distended - Rectal Exam Rectal Exam: Deferred - Exam Exam: NORMAL INSPECTION Assessment and Plan (1) Gangrene associated with type 2 diabetes mellitus Status: Acute (2) Atrial fibrillation Status: Acute (3) ESRD (end stage renal disease) on dialysis Status: Acute (4) Non-insulin dependent type 2 diabetes mellitus Status: Acute
[2017-08-24] MEDS: Meropenem 500 MG in Sodium Chloride 0.9% 100 ML IVPB SCH (21:36)
[2017-08-25] MEDS: (Novolog) Insulin Aspart, Recombinant 100 u/ml 10 ml vial SC SCH ×4 (08:02→21:28)
[2017-08-25] MEDS: Meropenem 500 MG in Sodium Chloride 0.9% 100 ML IVPB SCH ×2 (08:02→19:10)
--- NOTE | 2017-08-25 08:07 | CP.PCM.PN ---
Subjective - Date & Time of Evaluation Date of Evaluation: 08/25/17 Time of Evaluation: 08:04 - Subjective Subjective: s/p debridement of lt foot ulcer esbl klebsiella in cultures afebrile on iv antibiotics no f/c/sob/cp/dizziness/headache/n/v/d/cough/rash Objective - Vital Signs/Intake and Output Vital Signs (last 24 hours): Temp Pulse Resp BP Pulse Ox 98.1 F 78 20 148/75 98 08/25/17 00:00 08/25/17 00:00 08/25/17 00:00 08/25/17 00:00 08/25/17 00:00 Intake and Output: 08/25/17 08/25/17 06:59 18:59 Intake Total 250 Output Total 350 Balance -100 - Medications Medications: Current Medications Calcium Acetate (Phoslo) 1,334 mg PO TID [facility] Last Admin: 08/24/17 17:52 Dose: 1,334 mg Epoetin Linden (Procrit) 4,000 unit IV TTS [facility] Last Admin: 08/23/17 14:58 Dose: 4,000 unit Glipizide (Glucotrol) 5 mg PO TIDAC [facility] Last Admin: 08/25/17 08:01 Dose: 5 mg Vancomycin/Sodium Chloride (Vancomycin 1 Gm/Ns 200 Ml) 1 gm in 200 mls @ 166.7 mls/hr IVPB TUTHSA [facility] PRN Reason: Protocol Stop: 08/28/17 10:01 Last Admin: 08/23/17 16:01 Dose: 166.7 mls/hr Meropenem 500 mg/ Sodium (Chloride) 100 mls @ 100 mls/hr IVPB Q12H [facility] PRN Reason: Protocol Last Admin: 08/25/17 08:02 Dose: 100 mls/hr Insulin Aspart (Novolog) 0 unit SC ACHS [facility] PRN Reason: Protocol Last Admin: 08/25/17 08:02 Dose: 1 unit Losartan Potassium (Cozaar) 50 mg PO DAILY [facility] Last Admin: 08/24/17 09:59 Dose: 50 mg Metoprolol Tartrate (Lopressor) 25 mg PO BID [facility] Last Admin: 08/24/17 17:47 Dose: 25 mg Oxycodone/Acetaminophen (Percocet 5/325 Mg Tab) 1 tab PO Q4H PRN PRN Reason: Pain, moderate (4-7) Stop: 08/27/17 14:31 Rosuvastatin Calcium (Crestor) 5 mg PO HS [facility] Last Admin: 08/24/17 21:37 Dose: 5 mg - Labs Labs: 08/22/17 09:05 08/24/17 07:58 PT 14.4 SECONDS (9.7-12.2) H 08/22/17 09:05 INR 1.3 08/22/17 09:05 APTT 38 SECONDS (21-34) H 08/22/17 09:05 - Constitutional Appears: Non-toxic, No Acute Distress, Chronically Ill - Head Exam Head Exam: NORMAL INSPECTION, NORMOCEPHALIC - Eye Exam Eye Exam: Normal appearance Pupil Exam: PERRL - ENT Exam ENT Exam: Mucous Membranes Moist, Normal Exam - Neck Exam Neck Exam: Normal Inspection - Respiratory Exam Respiratory Exam: Clear to Ausculation Bilateral, NORMAL BREATHING PATTERN - Cardiovascular Exam Cardiovascular Exam: REGULAR RHYTHM, RRR - GI/Abdominal Exam GI & Abdominal Exam: Distended, Soft, Normal Bowel Sounds - Extremities Exam Extremities Exam: Normal Inspection (left foot in dressing) - Neurological Exam Neurological Exam: Alert, Awake, Oriented x3 - Psychiatric Exam Psychiatric exam: Normal Affect, Normal Mood - Skin Skin Exam: Dry, Intact Assessment and Plan (1) Atrial fibrillation Status: Acute (2) ESRD (end stage renal disease) on dialysis Status: Acute (3) Infected ulcer of skin Status: Acute (4) Non-insulin dependent type 2 diabetes mellitus Status: Acute - Assessment and Plan (Free Text) Assessment: maintain hd tts blood sugar control antibiotics and supportive care labs w/ hd today
[2017-08-25 10:24] LABS: HEMOGLOBIN 10.4 g/dL (12.0-18.0); MEAN CELL VOLUME 94.7 fL (80.0-94.0); MEAN CORPUSCULAR HEMOGLOBIN 31.4 pg (27.0-31.0); MEAN CORPUSCULAR HGB CONC 33.2 g/dL (33.0-37.0); MEAN PLATELET VOLUME 9.2 fL (7.2-11.7); RBC 3.32 Mil/uL (4.40-5.90); RED CELL DISTRIBUTION WIDTH 15.8 % (11.5-14.5); WHITE BLOOD COUNT 9.9 K/uL (4.8-10.8)
[2017-08-25] MEDS: Vancomycin 1 gm/NS 200 ml 1 GM/200 ML BAG IVPB SCH ×2 (11:00→14:17)
[2017-08-25 11:08] LABS: CALCIUM 8.1 mg/dl (8.6-10.4)
[2017-08-25] MEDS: EPOETIN ALFA 4,000 UNIT/ML ML Dialysis IV SCH (12:41)
[2017-08-25 16:24] VITALS: RESP 20
--- NOTE | 2017-08-25 17:22 | CP.PCM.PN ---
Subjective - Date & Time of Evaluation Date of Evaluation: 08/25/17 Time of Evaluation: 12:00 - Subjective Subjective: Podiatry Progress Note- Dr. Cavanaugh 72 year old male seen at bedside 1 day s/p debridement of chronic left foot ulcers with graft application. Pt reports no acute overnight event and no pain to either of his lower extremities. No strikethough to his outer dressings, He is in good spirits at this time. He denies recent fevers, chills, chest pain,sob , nausea, vomiting, and diarrhea. Objective - Vital Signs/Intake and Output Vital Signs (last 24 hours): Temp Pulse Resp BP Pulse Ox 97.7 F 73 20 158/68 H 95 08/25/17 16:00 08/25/17 16:00 08/25/17 16:00 08/25/17 16:00 08/25/17 16:00 Intake and Output: 08/25/17 08/25/17 06:59 18:59 Intake Total 250 660 Output Total 350 Balance -100 660 - Medications Medications: Current Medications Calcium Acetate (Phoslo) 1,334 mg PO TID [facility] Last Admin: 08/25/17 14:05 Dose: 1,334 mg Epoetin Linden (Procrit) 4,000 unit IV TTS [facility] Last Admin: 08/25/17 12:41 Dose: 4,000 unit Glipizide (Glucotrol) 5 mg PO TIDAC [facility] Last Admin: 08/25/17 11:45 Dose: Not Given Vancomycin/Sodium Chloride (Vancomycin 1 Gm/Ns 200 Ml) 1 gm in 200 mls @ 166.7 mls/hr IVPB TUTHSA [facility] PRN Reason: Protocol Stop: 08/28/17 10:01 Last Admin: 08/25/17 14:17 Dose: 166.7 mls/hr Meropenem 500 mg/ Sodium (Chloride) 100 mls @ 100 mls/hr IVPB Q12H [facility] PRN Reason: Protocol Last Admin: 08/25/17 08:02 Dose: 100 mls/hr Insulin Aspart (Novolog) 0 unit SC ACHS [facility] PRN Reason: Protocol Last Admin: 08/25/17 11:46 Dose: Not Given Losartan Potassium (Cozaar) 50 mg PO DAILY [facility] Last Admin: 08/25/17 09:47 Dose: Not Given Metoprolol Tartrate (Lopressor) 25 mg PO BID [facility] Last Admin: 08/25/17 09:47 Dose: Not Given Oxycodone/Acetaminophen (Percocet 5/325 Mg Tab) 1 tab PO Q4H PRN PRN Reason: Pain, moderate (4-7) Stop: 08/27/17 14:31 Rosuvastatin Calcium (Crestor) 5 mg PO HS [facility] Last Admin: 08/24/17 21:37 Dose: 5 mg - Labs Labs: 08/25/17 10:19 08/25/17 10:19 PT 14.4 SECONDS (9.7-12.2) H 08/22/17 09:05 INR 1.3 08/22/17 09:05 APTT 38 SECONDS (21-34) H 08/22/17 09:05 - Constitutional Appears: Well, Non-toxic, No Acute Distress - Extremities Exam Additional comments: Left leg focused. Dressing, clean, dry, and intact, absent strikethrough. - Neurological Exam Neurological Exam: Alert, Awake, Oriented x3 - Psychiatric Exam Psychiatric exam: Normal Affect, Normal Mood Assessment and Plan - Assessment and Plan (Free Text) Assessment: 72 year old male POD# 1 s/p L-foot wound debridement of left lateral foot Torrez grade 3 ulceration and medial and lateral heel Torrez grade 1 ulcerations secondary to diabetes & PVD. Plan: Pt seen and evaluated, with attending, Dr. Cavanaugh. Chart, labs, and vitals reviewed. Afebrile, WBC=9.9. IV antibiotics per ID. 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 Interval stents noted proximal to popliteal artery. Occlusion of [employer]. 2 vessel runoff into foot. -No vascular surgical intervention required--vascular flow adequate to affected limb Dressing kept clean, dry and intact. To be redressed 7 days s/p surgical intervention (09/01/17) Pt activity is to remain strict now weightbearing to lwft lower extremity. ( resule limited weight bearing activity 08/28/17) Podiatry will follow pt while inhouse. Pt is stable from podiatry standpoint for discharge to [facility].
--- NOTE | 2017-08-25 23:56 | CP.PCM.PN ---
Subjective - Date & Time of Evaluation Date of Evaluation: 08/19/17 Time of Evaluation: 20:45 - Subjective Subjective: Patient has complaint. Surgical wound not bleeding. Will restart Eliquis. Objective - Vital Signs/Intake and Output Vital Signs (last 24 hours): Temp Pulse Resp BP Pulse Ox 97.7 F 73 20 158/78 H 95 08/25/17 16:00 08/25/17 16:00 08/25/17 16:00 08/25/17 17:37 08/25/17 16:00 Intake and Output: 08/25/17 08/26/17 18:59 06:59 Intake Total 660 250 Balance 660 250 - Medications Medications: Current Medications Apixaban (Eliquis) 2.5 mg PO BID [facility] Calcium Acetate (Phoslo) 1,334 mg PO TID [facility] Last Admin: 08/25/17 18:34 Dose: 1,334 mg Epoetin Linden (Procrit) 4,000 unit IV TTS [facility] Last Admin: 08/25/17 12:41 Dose: 4,000 unit Glipizide (Glucotrol) 5 mg PO TIDAC [facility] Last Admin: 08/25/17 17:37 Dose: 5 mg Vancomycin/Sodium Chloride (Vancomycin 1 Gm/Ns 200 Ml) 1 gm in 200 mls @ 166.7 mls/hr IVPB TUTHSA [facility] PRN Reason: Protocol Stop: 08/28/17 10:01 Last Admin: 08/25/17 14:17 Dose: 166.7 mls/hr Meropenem 500 mg/ Sodium (Chloride) 100 mls @ 100 mls/hr IVPB Q12H [facility] PRN Reason: Protocol Last Admin: 08/25/17 19:10 Dose: 100 mls/hr Insulin Aspart (Novolog) 0 unit SC ACHS [facility] PRN Reason: Protocol Last Admin: 08/25/17 21:28 Dose: Not Given Losartan Potassium (Cozaar) 50 mg PO DAILY [facility] Last Admin: 08/25/17 09:47 Dose: Not Given Metoprolol Tartrate (Lopressor) 25 mg PO BID [facility] Last Admin: 08/25/17 17:37 Dose: 25 mg Oxycodone/Acetaminophen (Percocet 5/325 Mg Tab) 1 tab PO Q4H PRN PRN Reason: Pain, moderate (4-7) Stop: 08/27/17 14:31 Rosuvastatin Calcium (Crestor) 5 mg PO HS [facility] Last Admin: 08/25/17 21:28 Dose: 5 mg - Labs Labs: 08/25/17 10:19 08/25/17 10:19 PT 14.4 SECONDS (9.7-12.2) H 08/22/17 09:05 INR 1.3 08/22/17 09:05 APTT 38 SECONDS (21-34) H 08/22/17 09:05 - Constitutional Appears: Chronically Ill - Head Exam Head Exam: NORMAL INSPECTION - Eye Exam Eye Exam: Normal appearance - ENT Exam ENT Exam: Normal Exam - Neck Exam Neck Exam: Normal Inspection - Respiratory Exam Respiratory Exam: Clear to Ausculation Bilateral, NORMAL BREATHING PATTERN - Cardiovascular Exam Cardiovascular Exam: Irregular Rhythm - GI/Abdominal Exam GI & Abdominal Exam: Soft, Normal Bowel Sounds - Rectal Exam Rectal Exam: Deferred - Extremities Exam Additional comments: Left foot under bandages. - Back Exam Back Exam: NORMAL INSPECTION - Neurological Exam Neurological Exam: Alert, Awake, Oriented x3 - Psychiatric Exam Psychiatric exam: Normal Affect, Normal Mood Assessment and Plan (1) Infected ulcer of skin Assessment & Plan: S/p debridement of the left foot ulcer. POD # 1. Status: Acute (2) Non-insulin dependent type 2 diabetes mellitus Status: Acute (3) ESRD (end stage renal disease) on dialysis Assessment & Plan: Hd asper Nephrologists. Status: Acute (4) Atrial fibrillation Assessment & Plan: Restart Eliquis. Status: Acute
[2017-08-26 07:11] LABS: BASO # 0.1 K/uL (0.0-0.2); BASO % 1.1 % (0.0-2.0); EOS # 0.4 K/uL (0.0-0.7); EOS % 4.3 % (0.0-4.0); HEMOGLOBIN 10.7 g/dL (12.0-18.0); LYMPH # 0.7 K/uL (1.0-4.3); LYMPH % 8.1 % (20.0-40.0); MEAN CELL VOLUME 95.4 fL (80.0-94.0); MEAN CORPUSCULAR HEMOGLOBIN 31.2 pg (27.0-31.0); MEAN CORPUSCULAR HGB CONC 32.7 g/dL (33.0-37.0); MONO # 0.8 K/uL (0.0-0.8); MONO % 9.3 % (0.0-10.0); NEUT # 6.6 K/uL (1.8-7.0); NEUT % 77.2 % (50.0-75.0); PLATELET COUNT 207 K/uL (130-400); RBC 3.42 Mil/uL (4.40-5.90); RED CELL DISTRIBUTION WIDTH 16.1 % (11.5-14.5); WHITE BLOOD COUNT 8.6 K/uL (4.8-10.8)
[2017-08-26 07:45] LABS: ALB/GLOB RATIO 0.7 (1.0-2.1); ALBUMIN 2.7 g/dL (3.5-5.0); CALCIUM 7.8 mg/dl (8.6-10.4)
[2017-08-26] MEDS: (Novolog) Insulin Aspart, Recombinant 100 u/ml 10 ml vial SC SCH ×2 (08:23→12:30)
[2017-08-26] MEDS: Meropenem 500 MG in Sodium Chloride 0.9% 100 ML IVPB SCH (08:24)
[2017-08-26 09:51] LABS: ANISOCYTOSIS SLIGHT; BANDS 1 % (0-2); EOSINOPHIL 5 % (0-4); LYMPHOCYTE 8 % (20-40); MONOCYTE 11 % (0-10); MYELOCYTE 1 % (0-0); NEUTROPHIL 74 % (50-75); PLATELET ESTIMATE NORMAL (NORMAL); TOTAL CELLS COUNTED 100
--- NOTE | 2017-08-26 12:20 | CP.PCM.PN ---
Subjective - Date & Time of Evaluation Date of Evaluation: 08/26/17 Time of Evaluation: 09:00 - Subjective Subjective: discussed on rounds for d/c to [facility] cont IV rx for 6 weeks + Objective - Vital Signs/Intake and Output Vital Signs (last 24 hours): Temp Pulse Resp BP Pulse Ox 98.6 F 81 20 154/79 H 95 08/26/17 08:00 08/26/17 08:00 08/26/17 08:00 08/26/17 10:43 08/26/17 08:00 Intake and Output: 08/26/17 08/26/17 06:59 18:59 Intake Total 490 Balance 490 - Medications Medications: Current Medications Apixaban (Eliquis) 2.5 mg PO BID [facility] Last Admin: 08/26/17 10:45 Dose: 2.5 mg Calcium Acetate (Phoslo) 1,334 mg PO TID [facility] Last Admin: 08/26/17 10:43 Dose: 1,334 mg Epoetin Linden (Procrit) 4,000 unit IV TTS [facility] Last Admin: 08/25/17 12:41 Dose: 4,000 unit Glipizide (Glucotrol) 5 mg PO TIDAC [facility] Last Admin: 08/26/17 08:23 Dose: 5 mg Vancomycin/Sodium Chloride (Vancomycin 1 Gm/Ns 200 Ml) 1 gm in 200 mls @ 166.7 mls/hr IVPB TUTHSA [facility] PRN Reason: Protocol Stop: 08/28/17 10:01 Last Admin: 08/25/17 14:17 Dose: 166.7 mls/hr Meropenem 500 mg/ Sodium (Chloride) 100 mls @ 100 mls/hr IVPB Q12H [facility] PRN Reason: Protocol Last Admin: 08/26/17 08:24 Dose: 100 mls/hr Insulin Aspart (Novolog) 0 unit SC ACHS [facility] PRN Reason: Protocol Last Admin: 08/26/17 08:23 Dose: 1 unit Losartan Potassium (Cozaar) 50 mg PO DAILY [facility] Last Admin: 08/26/17 10:43 Dose: 50 mg Metoprolol Tartrate (Lopressor) 25 mg PO BID [facility] Last Admin: 08/26/17 10:43 Dose: 25 mg Oxycodone/Acetaminophen (Percocet 5/325 Mg Tab) 1 tab PO Q4H PRN PRN Reason: Pain, moderate (4-7) Stop: 08/27/17 14:31 Rosuvastatin Calcium (Crestor) 5 mg PO HS [facility] Last Admin: 08/25/17 21:28 Dose: 5 mg - Labs Labs: 08/26/17 06:56 08/26/17 06:56 PT 14.4 SECONDS (9.7-12.2) H 08/22/17 09:05 INR 1.3 08/22/17 09:05 APTT 38 SECONDS (21-34) H 08/22/17 09:05 - Constitutional Appears: Non-toxic, Chronically Ill - Eye Exam Eye Exam: PERRL - ENT Exam ENT Exam: Mucous Membranes Dry - Neck Exam Neck Exam: absent: Lymphadenopathy - Respiratory Exam Respiratory Exam: Decreased Breath Sounds - Cardiovascular Exam Cardiovascular Exam: REGULAR RHYTHM - GI/Abdominal Exam GI & Abdominal Exam: Distended - Rectal Exam Rectal Exam: Deferred - Exam Exam: NORMAL INSPECTION Assessment and Plan (1) Atrial fibrillation Status: Acute (2) ESRD (end stage renal disease) on dialysis Status: Acute (3) Gangrene associated with type 2 diabetes mellitus Status: Acute (4) Infected ulcer of skin Status: Acute (5) Non-insulin dependent type 2 diabetes mellitus Status: Acute (6) PVD (peripheral vascular disease) Status: Acute
--- NOTE | 2017-08-26 13:14 | CP.PCM.PN ---
Subjective - Date & Time of Evaluation Date of Evaluation: 08/26/17 Time of Evaluation: 13:13 - Subjective Subjective: no events chart reviewed no f/c/sob/cp/headche/n/v/d/rash Objective - Vital Signs/Intake and Output Vital Signs (last 24 hours): Temp Pulse Resp BP Pulse Ox 98.6 F 81 20 154/79 H 95 08/26/17 08:00 08/26/17 08:00 08/26/17 08:00 08/26/17 10:43 08/26/17 08:00 Intake and Output: 08/26/17 08/26/17 06:59 18:59 Intake Total 490 Balance 490 - Medications Medications: Current Medications Apixaban (Eliquis) 2.5 mg PO BID [facility] Last Admin: 08/26/17 10:45 Dose: 2.5 mg Calcium Acetate (Phoslo) 1,334 mg PO TID [facility] Last Admin: 08/26/17 10:43 Dose: 1,334 mg Epoetin Lind[place] (Procrit) 4,000 unit IV TTS [facility] Last Admin: 08/25/17 12:41 Dose: 4,000 unit Glipizide (Glucotrol) 5 mg PO TIDAC [facility] Last Admin: 08/26/17 12:30 Dose: 5 mg Vancomycin/Sodium Chloride (Vancomycin 1 Gm/Ns 200 Ml) 1 gm in 200 mls @ 166.7 mls/hr IVPB TUTHSA [facility] PRN Reason: Protocol Stop: 08/28/17 10:01 Last Admin: 08/25/17 14:17 Dose: 166.7 mls/hr Meropenem 500 mg/ Sodium (Chloride) 100 mls @ 100 mls/hr IVPB Q12H [facility] PRN Reason: Protocol Last Admin: 08/26/17 08:24 Dose: 100 mls/hr Insulin Aspart (Novolog) 0 unit SC ACHS [facility] PRN Reason: Protocol Last Admin: 08/26/17 12:30 Dose: 2 unit Losartan Potassium (Cozaar) 50 mg PO DAILY [facility] Last Admin: 08/26/17 10:43 Dose: 50 mg Metoprolol Tartrate (Lopressor) 25 mg PO BID [facility] Last Admin: 08/26/17 10:43 Dose: 25 mg Oxycodone/Acetaminophen (Percocet 5/325 Mg Tab) 1 tab PO Q4H PRN PRN Reason: Pain, moderate (4-7) Stop: 08/27/17 14:31 Rosuvastatin Calcium (Crestor) 5 mg PO HS [facility] Last Admin: 08/25/17 21:28 Dose: 5 mg - Labs Labs: 08/26/17 06:56 08/26/17 06:56 PT 14.4 SECONDS (9.7-12.2) H 08/22/17 09:05 INR 1.3 08/22/17 09:05 APTT 38 SECONDS (21-34) H 08/22/17 09:05 - Constitutional Appears: No Acute Distress, Chronically Ill - Head Exam Head Exam: NORMAL INSPECTION, NORMOCEPHALIC - Eye Exam Eye Exam: Normal appearance Pupil Exam: PERRL - ENT Exam ENT Exam: Mucous Membranes Moist, Normal Exam - Neck Exam Neck Exam: Full ROM, Normal Inspection - Respiratory Exam Respiratory Exam: Decreased Breath Sounds, NORMAL BREATHING PATTERN - Cardiovascular Exam Cardiovascular Exam: Irregular Rhythm - GI/Abdominal Exam GI & Abdominal Exam: Distended, Soft - Extremities Exam Extremities Exam: Normal Inspection (left foot in dressing) - Neurological Exam Neurological Exam: Alert, Awake - Psychiatric Exam Psychiatric exam: Normal Affect, Normal Mood - Skin Skin Exam: Dry, Intact Assessment and Plan (1) Atrial fibrillation Status: Acute (2) ESRD (end stage renal disease) on dialysis Status: Acute (3) Infected ulcer of skin Status: Acute (4) Non-insulin dependent type 2 diabetes mellitus Status: Acute - Assessment and Plan (Free Text) Assessment: maintain hd tts antibiotics and supportive care
[2017-08-26 15:52] VITALS: BP 127/60; PULSE 68; TEMP 98; O2SAT 97
--- NOTE | 2017-08-26 16:33 | CP.PCM.PN ---
Subjective - Date & Time of Evaluation Date of Evaluation: 08/26/17 Time of Evaluation: 16:33 - Subjective Subjective: Alert, awake, no acute distress noted. Objective - Vital Signs/Intake and Output Vital Signs (last 24 hours): Temp Pulse Resp BP Pulse Ox 98.0 F 68 20 127/60 97 08/26/17 15:00 08/26/17 15:00 08/26/17 15:00 08/26/17 15:00 08/26/17 15:00 Intake and Output: 08/26/17 08/26/17 06:59 18:59 Intake Total 490 460 Balance 490 460 - Medications Medications: Current Medications Apixaban (Eliquis) 2.5 mg PO BID [facility] Last Admin: 08/26/17 10:45 Dose: 2.5 mg Calcium Acetate (Phoslo) 1,334 mg PO TID [facility] Last Admin: 08/26/17 14:59 Dose: 1,334 mg Epoetin Linden (Procrit) 4,000 unit IV TTS [facility] Last Admin: 08/25/17 12:41 Dose: 4,000 unit Glipizide (Glucotrol) 5 mg PO TIDAC [facility] Last Admin: 08/26/17 12:30 Dose: 5 mg Vancomycin/Sodium Chloride (Vancomycin 1 Gm/Ns 200 Ml) 1 gm in 200 mls @ 166.7 mls/hr IVPB TUTHSA [facility] PRN Reason: Protocol Stop: 08/28/17 10:01 Last Admin: 08/25/17 14:17 Dose: 166.7 mls/hr Meropenem 500 mg/ Sodium (Chloride) 100 mls @ 100 mls/hr IVPB Q12H [facility] PRN Reason: Protocol Last Admin: 08/26/17 08:24 Dose: 100 mls/hr Insulin Aspart (Novolog) 0 unit SC ACHS [facility] PRN Reason: Protocol Last Admin: 08/26/17 12:30 Dose: 2 unit Losartan Potassium (Cozaar) 50 mg PO DAILY [facility] Last Admin: 08/26/17 10:43 Dose: 50 mg Metoprolol Tartrate (Lopressor) 25 mg PO BID [facility] Last Admin: 08/26/17 10:43 Dose: 25 mg Rosuvastatin Calcium (Crestor) 5 mg PO HS [facility] Last Admin: 08/25/17 21:28 Dose: 5 mg - Labs Labs: 08/26/17 06:56 08/26/17 06:56 PT 14.4 SECONDS (9.7-12.2) H 08/22/17 09:05 INR 1.3 08/22/17 09:05 APTT 38 SECONDS (21-34) H 08/22/17 09:05 Assessment and Plan - Assessment and Plan (Free Text) Assessment: Patient admitted with diabetic foot ulcer, post debridement, cleared by DR Cavanaugh for discharge to rehab. Will continue with vancomycin 1gm after each dialysis and cipro 500mg po daily as per DR Bailey for 6 weeks. Right arm AVF intact with good thrill, Radial pulse good. Discussed with DR Watkins, plan to discharge to [facility] today. Hemodialysis to continue TTS.
--- NOTE | 2017-08-28 13:05 | CP.PCM.DIS ---
Provider - Provider Date of Admission: 08/22/17 09:52 Attending physician: Martha Watkins MD Primary care physician: Dr MARTHA WATKINS Consults: Alfredo Cheek ( podiatry) Dr Colby Bailey ( ID) Dr Ruiz (Nephrology) Dr Luis M Jr (Vascular). Time Spent in preparation of Discharge (in minutes): 30 Diagnosis - Discharge Diagnosis (1) Infected ulcer of skin Status: Acute (2) Non-insulin dependent type 2 diabetes mellitus Status: Acute (3) ESRD (end stage renal disease) on dialysis Status: Acute (4) Atrial fibrillation Status: Acute Hospital Course - Lab Results Lab Results: Micro Results 08/24/17 13:52 Foot - Left Gram Stain - Final 08/24/17 13:52 Foot - Left Wound Culture - Preliminary Escherichia Coli Yeast Species 08/24/17 13:52 Bone Gram Stain - Final 08/24/17 13:52 Bone Tissue Culture - Final Corynebacterium Species 08/22/17 08:35 Blood-Venous Blood Culture - Final NO GROWTH AFTER 5 DAYS 08/22/17 08:35 Blood-Venous Blood Culture - Final NO GROWTH AFTER 5 DAYS 08/22/17 08:35 Blood-Venous Gram Stain - Final TEST NOT PERFORMED 08/22/17 09:39 Foot - Left Gram Stain - Final 08/22/17 09:39 Foot - Left Wound Culture - Final Klebsiella Oxytoca Corynebacterium Species Most Recent Lab Values WBC 8.6 K/uL (4.8-10.8) 08/26/17 06:56 RBC 3.42 Mil/uL (4.40-5.90) L 08/26/17 06:56 Hgb 10.7 g/dL (12.0-18.0) L 08/26/17 06:56 Hct 32.6 % (35.0-51.0) L 08/26/17 06:56 MCV 95.4 fL (80.0-94.0) H 08/26/17 06:56 MCH 31.2 pg (27.0-31.0) H 08/26/17 06:56 MCHC 32.7 g/dL (33.0-37.0) L 08/26/17 06:56 RDW 16.1 % (11.5-14.5) H 08/26/17 06:56 Plt Count 207 K/uL (130-400) 08/26/17 06:56 MPV 9.0 fL (7.2-11.7) 08/26/17 06:56 Neut % (Auto) 77.2 % (50.0-75.0) H 08/26/17 06:56 Lymph % (Auto) 8.1 % (20.0-40.0) L 08/26/17 06:56 [place] % (Auto) 9.3 % (0.0-10.0) 08/26/17 06:56 Eos % (Auto) 4.3 % (0.0-4.0) H 08/26/17 06:56 Baso % (Auto) 1.1 % (0.0-2.0) 08/26/17 06:56 Neut # (Auto) 6.6 K/uL (1.8-7.0) 08/26/17 06:56 Lymph # (Auto) 0.7 K/uL (1.0-4.3) L 08/26/17 06:56 [place] # (Auto) 0.8 K/uL (0.0-0.8) 08/26/17 06:56 Eos # (Auto) 0.4 K/uL (0.0-0.7) 08/26/17 06:56 Baso # (Auto) 0.1 K/uL (0.0-0.2) 08/26/17 06:56 Neutrophils % (Manual) 74 % (50-75) 08/26/17 06:56 Band Neutrophils % 1 % (0-2) 08/26/17 06:56 Lymphocytes % (Manual) 8 % (20-40) L 08/26/17 06:56 Monocytes % (Manual) 11 % (0-10) H 08/26/17 06:56 Eosinophils % (Manual) 5 % (0-4) H 08/26/17 06:56 Myelocytes % 1 % (0-0) H 08/26/17 06:56 Platelet Estimate Normal (NORMAL) 08/26/17 06:56 Polychromasia Slight 08/22/17 09:05 Hypochromasia (manual) Slight 08/22/17 09:05 Basophilic Stippling Slight 08/26/17 06:56 Anisocytosis (manual) Slight 08/26/17 06:56 PT 14.4 SECONDS (9.7-12.2) H 08/22/17 09:05 INR 1.3 08/22/17 09:05 APTT 38 SECONDS (21-34) H 08/22/17 09:05 Sodium 134 mmol/L (132-148) 08/26/17 06:56 Potassium 4.0 mmol/L (3.6-5.2) 08/26/17 06:56 Chloride 94 mmol/L (98-107) L 08/26/17 06:56 Carbon Dioxide 30 mmol/L (22-30) 08/26/17 06:56 Anion Gap 14 (10-20) 08/26/17 06:56 BUN 28 mg/dL (9-20) H 08/26/17 06:56 Creatinine 5.3 mg/dL (0.8-1.5) H 08/26/17 06:56 Est GFR ( Amer) 13 08/26/17 06:56 Est GFR (Non-Af Amer) 11 08/26/17 06:56 POC Glucose (mg/dL) 239 mg/dL (65-110) H 08/26/17 16:10 Random Glucose 193 mg/dL (75-110) H 08/26/17 06:56 Calcium 7.8 mg/dl (8.6-10.4) L 08/26/17 06:56 Total Bilirubin 0.5 mg/dL (0.2-1.3) 08/26/17 06:56 AST 18 U/L (17-59) 08/26/17 06:56 ALT 7 U/L (21-72) L 08/26/17 06:56 Alkaline Phosphatase 83 U/L (38-126) 08/26/17 06:56 Total Protein 6.5 g/dL (6.3-8.3) 08/26/17 06:56 Albumin 2.7 g/dL (3.5-5.0) L 08/26/17 06:56 Globulin 3.8 gm/dL (2.2-3.9) 08/26/17 06:56 Albumin/Globulin Ratio 0.7 (1.0-2.1) L 08/26/17 06:56 - Hospital Course Hospital Course: 72 years old [place] male was hospitalized for infected ulcerations of the left foot. He is known to have a Hypertension, a non-insulin dependent diabetes mellitus, an ESRD on HD, a chronic atrial fibrillation, a peripheral arterial disease with s/p SFA stent. He was evaluated br Dr Bailey *ID), Dr Alfredo Cavanaugh (Podiatry), Dr Luis M Jr ( Vascular) and Dr Ruiz (nephrology). He was started on Vancomycin 1gm IVPB qd and Zosyn 2.25.g IVPB q 8h. and underwent HD. On 08/24/2017, he underwent a debridement of the left foot ulcers and skin graft application by Dr Lashon Cavanaugh. Wound cultures revealed E. Coli, Corynebacteria and Klebsiella sensitive to Meropenem, Cipro with positive ESBL. Zosyn was switched to Meropenem 500mg IVPB q 12 H. The patient was discharged to a subacute rehabilitation on 08/26/2017 in a stable condition. 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 - Date & Time of H&P Date of H&P: 08/02/17 Discharge Exam - Head Exam Head Exam: NORMAL INSPECTION, NORMOCEPHALIC - Eye Exam Eye Exam: Normal appearance - ENT Exam ENT Exam: Normal Exam - Neck Exam Neck exam: Normal Inspection - Respiratory Exam Respiratory Exam: Clear to PA & Lateral, NORMAL BREATHING PATTERN, UNREMARKABLE - Cardiovascular Exam Cardiovascular Exam: Irregular Rhythm - GI/Abdominal Exam GI & Abdominal Exam: Normal Bowel Sounds, Soft, Unremarkable - Rectal Exam Rectal Exam: Deferred - Exam Exam: NORMAL INSPECTION - Extremities Exam Additional comments: Left foot wouds clean. - Back Exam Back exam: NORMAL INSPECTION - Neurological Exam Neurological exam: Alert, Oriented x3 - Psychiatric Exam Psychiatric exam: Normal Mood - Skin Skin Exam: Dry, Normal Color, Warm Discharge Plan - Discharge Medications Prescriptions: Ciprofloxacin [Cipro] 500 mg PO DAILY 48 Days tab Vancomycin 1gm in NS 250ml [Vancomycin 1gm] 1 gm IVPB TTS #18 bag - Follow Up Plan Condition: GOOD Disposition: REHAB FACILITY/REHAB UNIT Instructions: Ciprofloxacin (Systemic), Diabetic Foot Ulcer (DC), Vancomycin, Foot Care for Diabetics Referrals: Alfredo Cavanaugh, DPM [Staff Provider] -
--- NOTE | 2017-08-29 06:49 | OP ---
PROCEDURE DATE: 08/24/2017 PRIMARY SURGEON: Dr. Alfredo Cavanaugh, DPM. WINDLACE MACHINE OPERATOR: Dr. Edmond Vo, PGY2. ANESTHESIOLOGIST: Dr. Lowry. TYPE OF ANESTHESIA: MAC IV sedation with local. PREOPERATIVE DIAGNOSES: 1. Left lateral foot Torrez grade 3 ulceration. 2. Left lateral ankle Torrez grade 1 ulceration. 3. Left foot medial pre ulcerative pressure ulceration. POSTOPERATIVE DIAGNOSES: 1. Left lateral foot Torrez grade 3 ulceration. 2. Left lateral ankle Torrez grade 1 ulceration. 3. Left foot medial pre ulcerative pressure ulceration. SPECIMENS: Left foot basement partial bone. INDICATION: The patient is a 72-year-old male with the above stated diagnoses. The patient has exhausted all conservative treatment options at this point and is now in need of surgical intervention. The patient signed the surgical consent after careful explanation of risks, benefits, complications and potential alternatives for the proposed surgical procedure. No guarantees were either given nor implied. The patient's n.p.o. status was confirmed prior to bringing the patient to the operating room. PREPARATION: The patient was brought into the operating room and placed on the operating room table in supine position. Once IV sedation was confirmed to be achieved, the patient received a total of 20 mL of a 1:1 mixture of 0.5% Marcaine plain to 1% lidocaine plain with local block type fashion to the left ankle. Once local anesthesia was confirmed to be achieve, the left lower extremity was then prepped and draped in the usual sterile manner and the procedures began. 1. Left lower extremity ulcer debridement with graft application. Attention was then directed to the proximal medial skin ulceration and lateral ankle ulcerations, which were both measured to be cm respectively. Using VersaSynapSenset wound debridement system, the ulcerative bed was then prepped to the level of bleeding dermal hyper dermal tissue layers. Once the wound was debrided, amniotic tissue graft was then applied and anchored in place with combination of 3-0 Vicryl sutures and timothy. Ulcer sites were dressed with a Adaptic wet-to-dry 4 x 4 gauze and Kevin. 2. Left lateral foot wound debridement with bone biopsy. Attention was then directed to the site of the patient's lateral midfoot wound where the wound was noted to be cm. The wound was sharply debrided using #15 blade sloughing nonviable tissue down to the leve of bone and subcutaneous tissue. At this time, was then biopsied and passed from the operating field using a bone lounger to be sent for pathological evaluation. Surgical site was then sharply debrided using Versajet debridement system. Mechanical debridement followed with copious amounts of sterile saline. Karol ulcerative area was injected with 100 mg of NEOX amniotic matrix with ulcerative bed prepared, a NEOX wound graft was placed on the top of lateral foot wound which was dressed with Adaptic 4 x 4 gauze, ABD and Kerlix. POSTOPERATIVE CONDITION: The patient tolerated the anesthesia and procedure well and was escorted to the recovery room with vital signs stable and neurovascular status intact to the left lower extremity. The patient had no complaints or complications. The patient will follow with Dr. Cavanaugh in his office on an out patient basis. Edmond Vo DPM
== END 2017-08-26 17:33 | DRG 264 ==
LOC: C.ER 07:35 → C.9E 09:52 → C.3T 10:56
PROVIDERS: ADMIT Internal Medicine Cardiovascular Disease; ATTEND Internal Medicine Cardiovascular Disease
PROC: 0HRNX73 Replacement of Left Foot Skin with Autologous Tissue Substitute, Full Thickness, External Approach (ICD-10-PCS; 2017-08-24)
PROC: 0HBNXZZ Excision of Left Foot Skin, External Approach (ICD-10-PCS; 2017-08-24)
PROC: 0QBP0ZX Excision of Left Metatarsal, Open Approach, Diagnostic (ICD-10-PCS; principal; 2017-08-24 13:15)
DX: E11.52 Type 2 diabetes mellitus with diabetic peripheral angiopathy with gangrene (principal); N18.6 End stage renal disease; I96 Gangrene, not elsewhere classified; I12.0 Hypertensive chronic kidney disease with stage 5 chronic kidney disease or end stage renal disease; M86.9 Osteomyelitis, unspecified; E11.22 Type 2 diabetes mellitus with diabetic chronic kidney disease; E11.621 Type 2 diabetes mellitus with foot ulcer; Z79.4 Long term (current) use of insulin; L97.529 Non-pressure chronic ulcer of other part of left foot with unspecified severity; E78.00 Pure hypercholesterolemia, unspecified; I25.10 Atherosclerotic heart disease of native coronary artery without angina pectoris; I48.2 Chronic atrial fibrillation; E11.69 Type 2 diabetes mellitus with other specified complication; Z99.2 Dependence on renal dialysis

== ENCOUNTER 2017-11-30 08:16 | Day surgery (SDC) | payer MEDICARE, BC ==
[2017-11-30 10:04] LABS: CALCIUM 8.3 mg/dl (8.6-10.4)
[2017-11-30] MEDS ORDERED: Lactated Ringer's 500 ML IV ONE (10:53)
[2017-11-30] MEDS ORDERED: Propofol 10 mg/ml Inj (20 ML) ONE (10:56)
[2017-11-30 13:34] VITALS: TEMP 98.4
[2017-11-30 13:42] VITALS: BP 133/70; PULSE 61; RESP 18; O2SAT 99
== END 2017-11-30 12:30 | disposition home or self-care (01) ==
LOC: C.ENDO 08:16
PROVIDERS: ATTEND Internal Medicine Gastroenterology
DX: D12.3 Benign neoplasm of transverse colon (principal); D12.5 Benign neoplasm of sigmoid colon; K64.8 Other hemorrhoids
CPT/HCPCS: 36415; 45380; 80048; 82948; 88305; J2704; J7120

== ENCOUNTER 2018-01-10 08:43 | Inpatient (IN) | payer MEDICARE, BC ==
--- NOTE | 2018-01-10 09:40 | C.PDOC ---
History Of Present Illness 72 yo male w/PMHx of ESRD on HD ( Tue, Th, Sat), Afib, HTN, nyperlipidemia, DM, BIBA for evaluation of weakness, unsteady gait gradually developed for more than 24 hrs. Pt reports, " feel no energy to walk today and go to dialyses". Otherwise, pt and , denies recent illness, fever, chills, headache, dizziness, visual changes, focal deficits, CP, SOB, dyspnea, palpitation, abd. pain, V/D, denies sensory or vascular deficits to B/L UEs andl Es. At present time pt is AAO#3, not in any apparent distress. PMD: Pong Neph: [place] Time Seen by Provider: 01/10/18 09:06 Chief Complaint (Nursing): Weakness/Neurological Deficit History Per: Patient, Family Past Medical History Reviewed: Historical Data, Nursing Documentation, Vital Signs Vital Signs: Last Vital Signs Temp 97.5 F L 01/12/18 04:27 Pulse 75 01/12/18 04:27 Resp 20 01/12/18 04:27 BP 134/77 01/12/18 04:27 Pulse Ox 96 01/12/18 04:27 - Medical History PMH: Cardia Arrhythmia (A FIB/FLUTTER), Diabetes, HTN, Hypercholesterolemia, Chronic Kidney Disease Denies: CVA - [facility] Procedures EXCISION OF LEFT FOOT SKIN, EXTERNAL APPROACH (08/22/17) EXCISION OF LEFT METATARSAL, OPEN APPROACH, DIAGNOSTIC (08/22/17) REPLACE L FOOT SKIN W AUTOL SUB, FULL THICK, TALENT ANALYST (08/22/17) Family History: States: No Known Family Hx - Social History Hx Alcohol Use: No Hx Substance Use: No - Immunization History Hx Tetanus Toxoid Vaccination: No Hx Influenza Vaccination: No Hx Pneumococcal Vaccination: Yes Review Of Systems Constitutional: Positive for: Weakness, Malaise. Negative for: Fever, Chills Eyes: Negative for: Vision Change ENT: Negative for: Throat Pain Cardiovascular: Negative for: Chest Pain, Palpitations, Edema, Light Headedness Respiratory: Negative for: Cough, Shortness of Breath Gastrointestinal: Negative for: Nausea, Vomiting, Abdominal Pain, Diarrhea Neurological: Negative for: Weakness, Numbness, Altered Mental Status, Headache , Dizziness Physical Exam - Physical Exam Appears: Well, Non-toxic, No Acute Distress Skin: Normal Color, Warm, Dry Eye(s): bilateral: PERRL Nose: No Flaring, No Discharge Oral Mucosa: Moist Throat: No Drooling Neck: Trachea Midline, Supple Cardiovascular: Rhythm Irregular, No Murmur, No JVD Respiratory: No Decreased Breath Sounds, No Accessory Muscle Use, No Stridor, No Wheezing Gastrointestinal/Abdominal: Soft, No Tenderness, No Distention, No Guarding Extremity: Normal ROM, No Pedal Edema, No Swelling, Other (Right upper arm AV shunt, (+) thrill) Neurological/Psych: Oriented x3, Normal Speech, Normal Cognition, Normal Motor, Normal Sensation, Normal Reflexes ED Course And Treatment - Laboratory Results Result Diagrams: 01/10/18 09:30 01/10/18 09:30 Lab Interpretation: Abnormal ECG: Interpreted By Me, Viewed By Me ECG Rhythm: Atrial Fibrillation ECG Interpretation: No Changes From Prior Interpretation Of ECG: Afib@75/min O2 Sat by Pulse Oximetry: 97 Pulse Ox Interpretation: Normal - Radiology CXR: Interpreted by Me, Viewed By Me - Other Rad CXR X-Ray: Read By Radiologist Interpretation: IMPRESSION: Pulmonary vascular congestive changes improved however persistent mild bilateral lower lobe alveolar-type infiltrates and bilateral effusions left larger than right. - CT Scan/US CT head w/o contrast Other Rad Studies (CT/US): Radiology Report Reviewed CT/US Interpretation: Accession No. : [id number]. Patient Name / ID : LAKEISHA PEDRAZA / [id number]. Exam Date : 01/10/2018 10:02:09 ( Approved ) . Study Comment : Sex / Age : M / 72Y. Creator : Herlinda Mukherjee. Dictator : Felipe Marshall MD. Recruiter Account Manager : Rail [employer] Carman : Felipe Marshall MD. Approver2 : Report Date : 01/10/2018 10:27:43. My Comment : . Date of service: 01/10/2018. PROCEDURE: CT HEAD WITHOUT CONTRAST. HISTORY: Weakness. COMPARISON: No prior study available comparison. TECHNIQUE: Axial computed tomography images were obtained through the head/brain without intravenous contrast. Radiation dose: Total exam DLP = 1088.29 mGy-cm. This CT exam was performed using one or more of the following dose reduction techniques: Automated exposure control, adjustment of the mA and/or kV according to patient size, and/or use of iterative reconstruction technique. FINDINGS: HEMORRHAGE: No acute parenchymal, subarachnoid nor extra-axial hemorrhage. BRAIN: There is a chronic appearing right anterolateral basal ganglia and right frontal lobe infarct. Associated ex vacuo dilatation of the right frontal horn Additionally, mild moderate diffuse/confluent chronic white matter ischemic changes seen extending peripherally into the deep and subcortical white matter both cerebral hemispheres. Scattered small chronic appearing lacunar type infarcts both basal ganglia also noted. No obvious parenchymal nor extra-axial mass or collection seen on this noncontrast study. Moderate to significant generalized volume loss. Vascular calcifications both carotid siphons. VENTRICLES: No obstructive hydrocephalus. CALVARIUM: No acute calvarial fractures. There are vascular calcifications seen within the scalp ; rule out underlying IDDM. PARANASAL SINUSES: Mild mucosal thickening seen within the ethmoid and frontal sinuses. MASTOID AIR CELLS: Unremarkable as visualized. No inflammatory changes. OTHER FINDINGS: Changes of bilateral cataract surgery. IMPRESSION: No evidence of acute intracranial hemorrhage. 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 Scattered small chronic appearing bilateral basal nuclei lacunar type infarct. Mild to moderate chronic white matter ischemic changes. Moderate generalized volume loss. Progress Note: Pt remained unchanged during the ED evaluation. Blood work review and appears abnormal. case discussed with Neph and dialysis will be arranged for today. Cse discussed with PMD /spike. and admission to [facility] with Dx: CHF exacerbation, Afib arranged. Critical Care Time - Critical Care Note Total Time (in mins): 40 Documented critical care: time excludes all time spent performing seperately billable procedures. Disposition - Disposition Disposition: HOSPITALIZED Disposition Time: 11:28 Condition: STABLE - Clinical Impression Clinical Impression: ESRD (end stage renal disease) on dialysis, CHF (congestive heart failure), Muscle weakness
[2018-01-10 09:44] LABS: BASO % 0.6 % (0.0-2.0); EOS # 0.1 K/uL (0.0-0.7); EOS % 0.7 % (0.0-4.0); LYMPH # 0.6 K/uL (1.0-4.3); LYMPH % 7.1 % (20.0-40.0); MEAN CORPUSCULAR HEMOGLOBIN 32.3 pg (27.0-31.0); MEAN CORPUSCULAR HGB CONC 32.1 g/dL (33.0-37.0); MEAN PLATELET VOLUME 10.6 fL (7.2-11.7); MONO # 0.7 K/uL (0.0-0.8); MONO % 9.2 % (0.0-10.0); NEUT # 6.6 K/uL (1.8-7.0); NEUT % 82.4 % (50.0-75.0); RBC 3.71 Mil/uL (4.40-5.90); RED CELL DISTRIBUTION WIDTH 16.6 % (11.5-14.5)
[2018-01-10 09:45] LABS: MEAN CELL VOLUME 100.4 fL (80.0-94.0); PLATELET COUNT 126 K/uL (130-400)
[2018-01-10 09:49] LABS: INR 1.8; PROTHROMBIN TIME 20.1 SECONDS (9.7-12.2)
[2018-01-10 10:10] LABS: ANISOCYTOSIS SLIGHT; EOSINOPHIL 1 % (0-4); LYMPHOCYTE 4 % (20-40); MONOCYTE 10 % (0-10); NEUTROPHIL 85 % (50-75); PLATELET ESTIMATE SLIGHTLY DECREASED (NORMAL); TOTAL CELLS COUNTED 100
[2018-01-10 10:40] LABS: ALB/GLOB RATIO 0.8 (1.0-2.1); ALBUMIN 3.7 g/dL (3.5-5.0); ALT/SGPT 13 U/L (21-72); AST/SGOT 39 U/L (17-59); BLOOD UREA NITROGEN 75 mg/dL (9-20); CALCIUM 9.5 mg/dl (8.6-10.4); GFR NON-AFRICAN AMERICAN 7
[2018-01-10 10:48] LABS: B-TYPE NATRIURETIC PEPTIDE > 175000 pg/mL (0-900)
--- NOTE | 2018-01-10 11:08 | CT ---
Date of service: 01/10/2018 PROCEDURE: CT HEAD WITHOUT CONTRAST. HISTORY: Weakness COMPARISON: No prior study available comparison TECHNIQUE: Axial computed tomography images were obtained through the head/brain without intravenous contrast. Radiation dose: Total exam DLP = 1088.29 mGy-cm. This CT exam was performed using one or more of the following dose reduction techniques: Automated exposure control, adjustment of the mA and/or kV according to patient size, and/or use of iterative reconstruction technique. FINDINGS: HEMORRHAGE: No acute parenchymal, subarachnoid nor extra-axial hemorrhage. BRAIN: There is a chronic appearing right anterolateral basal ganglia and right frontal lobe infarct. Associated ex vacuo dilatation of the right frontal horn Additionally, mild moderate diffuse/confluent chronic white matter ischemic changes seen extending peripherally into the deep and subcortical white matter both cerebral hemispheres. Scattered small chronic appearing lacunar type infarcts both basal ganglia also noted. No obvious parenchymal nor extra-axial mass or collection seen on this noncontrast study Moderate to significant generalized volume loss. Vascular calcifications both carotid siphons. VENTRICLES: No obstructive hydrocephalus. CALVARIUM: No acute calvarial fractures. There are vascular calcifications seen within the scalp ; rule out underlying IDDM PARANASAL SINUSES: Mild mucosal thickening seen within the ethmoid and frontal sinuses. MASTOID AIR CELLS: Unremarkable as visualized. No inflammatory changes. OTHER FINDINGS: Changes of bilateral cataract surgery. IMPRESSION: No evidence of acute intracranial hemorrhage. 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 Scattered small chronic appearing bilateral basal nuclei lacunar type infarct. Mild to moderate chronic white matter ischemic changes. Moderate generalized volume loss.
--- NOTE | 2018-01-10 11:18 | RAD ---
Date of service: 01/10/2018 PROCEDURE: CHEST RADIOGRAPH, 1 VIEW HISTORY: SOB COMPARISON: Comparison made with prior study Dated 08/22/2017 FINDINGS: LUNGS: Pulmonary vascular congestive changes improved however persistent mild bilateral lower lobe alveolar-type infiltrates and bilateral effusions left larger than right. PLEURA: As above. No pneumothorax. CARDIOVASCULAR: Cardiomegaly. Interval placement of endovascular stent grafts seen right axillary region extending into the medial soft tissues right upper extremity OSSEOUS STRUCTURES: No significant abnormalities. VISUALIZED UPPER ABDOMEN: Normal. OTHER FINDINGS: None. IMPRESSION: Pulmonary vascular congestive changes improved however persistent mild bilateral lower lobe alveolar-type infiltrates and bilateral effusions left larger than right.
--- NOTE | 2018-01-10 14:03 | VASCLAB ---
Date of service: 01/10/2018 PROCEDURE: Left Lower Extremity Venous Duplex Exam. HISTORY: Pain, left calf. PRIORS: None. TECHNIQUE: Left common femoral, femoral, popliteal and posterior tibial, peroneal and great saphenous veins were evaluated. Flow was assessed with color Doppler, compressibility, assessment of phasic flow and augmentation response. Report prepared by AYAZ Burton, RVT FINDINGS: LEFT: 1. Common Femoral Vein: 1.1. Compressibility - Fully compressible: Thrombus - None : Flow - Phasic: Augmentation -Normal: Reflux - None. 2. Femoral Vein: 2.1. Compressibility - Fully compressible: Thrombus - None: Flow - Phasic: Augmentation -Normal: Reflux - None. 3. Popliteal Vein: 3.1. Compressibility - Fully compressible: Thrombus - None: Flow - Phasic: Augmentation -Normal: Reflux - None. 4. Posterior Tibial Vein: 4.1. Compressibility - Fully compressible: Thrombus - None: Flow - Phasic: Augmentation -Normal: Reflux - None. 5. Peroneal Vein: 5.1. Compressibility - Fully compressible: Thrombus - None: Flow - Phasic: Augmentation -Normal: Reflux - None. 6. Great Saphenous Vein: 6.1. Compressibility - Fully compressible: Thrombus - None: Flow - Phasic: Augmentation - Normal: Reflux - None. OTHER FINDINGS: IMPRESSION: No evidence of deep or superficial vein thrombosis of the left lower extremity with excellent venous flow. Normal valve function noted of the left side. Normal venous flow noted in the right common femoral vein.
--- NOTE | 2018-01-10 17:03 | CP.PCM.HP ---
History of Present Illness - History of Present Illness History of Present Illness: 72 years old male complaining of generalized weakness, dizziness, unsteadiness since yesterday. Patient denies any SOB, chest pain, nausea, vomiting. He is known to have a HPTN, a NIDDM, a hyperlipidemia, a chronic atrial fibrillation, an ESRD on HD. On admission, serum K+: 5.9 BUN: 75 creatinine 7.5 Pro-BNP 145, 000. Present on Admission - Present on Admission Any Indicators Present on Admission: No Review of Systems - Constitutional Constitutional: Weakness - Neurological Neurological: Abnormal Gait, Dizziness, Weakness Past Patient History - Tetanus Immunizations Tetanus Immunization: Unknown - Past Medical History & Family History Past Medical History?: Yes - Past Social History Smoking Status: Never Smoked Alcohol: None Drugs: Denies Home Situation {Lives}: With Family Domestic Violence: Negative - CARDIAC Hx Cardia Arrhythmia: Yes (A FIB/FLUTTER) Hx Hypercholesterolemia: Yes Hx Hypertension: Yes - PULMONARY Hx Respiratory Disorders: No - NEUROLOGICAL Hx Neurological Disorder: No - HEENT Hx HEENT Problems: Yes Hx Cataracts: Yes (BILAT.) - RENAL Hx Chronic Kidney Disease: Yes Hx Dialysis: Yes - ENDOCRINE/METABOLIC Hx Endocrine Disorders: Yes Hx Diabetes Mellitus Type 2: Yes - HEMATOLOGICAL/ONCOLOGICAL Hx Blood Disorders: No - INTEGUMENTARY Hx Dermatological Problems: No - MUSCULOSKELETAL/RHEUMATOLOGICAL Hx Musculoskeletal Disorders: No Hx Falls: No - GASTROINTESTINAL Hx Gastrointestinal Disorders: Yes Other/Comment: BLOOD IN STOOL - GENITOURINARY/GYNECOLOGICAL Hx Genitourinary Disorders: No - PSYCHIATRIC Hx Substance Use: No - SURGICAL HISTORY Hx Surgeries: Yes Hx Arteriovenous Shunt: Yes (AV FISTULA RIGHT ARM) Hx Cataract Extraction: Yes (BILAT.) Hx Eye Surgery: Yes (LEFT EYE) Other/Comment: SKIN GRAFT LEFT FOOT - ANESTHESIA Hx Anesthesia: Yes Hx Anesthesia Reactions: No Hx Malignant Hyperthermia: No Meds Allergies/Adverse Reactions: Allergies Allergy/AdvReac Type Severity Reaction Status Date / Time No Known Allergies Allergy Verified 01/10/18 09:03 Physical Exam - Constitutional Appears: No Acute Distress, Chronically Ill - Head Exam Head Exam: NORMAL INSPECTION - Eye Exam Eye Exam: Normal appearance Pupil Exam: NORMAL ACCOMODATION - ENT Exam ENT Exam: Normal Exam - Neck Exam Neck exam: Positive for: Normal Inspection - Respiratory Exam Respiratory Exam: Clear to Auscultation Bilateral, NORMAL BREATHING PATTERN - Cardiovascular Exam Cardiovascular Exam: Irregular Rhythm, Systolic Murmur - GI/Abdominal Exam GI & Abdominal Exam: Normal Bowel Sounds, Soft - Rectal Exam Rectal Exam: Deferred - Exam Exam: NORMAL INSPECTION - Back Exam Back exam: NORMAL INSPECTION - Neurological Exam Neurological exam: Alert, CN II-XII Intact, Normal Gait, Oriented x3, Reflexes Normal - Psychiatric Exam Psychiatric exam: Anxious - Skin Skin Exam: Dry, Intact, Normal Color, Warm Additional comments: right foot wound. Results - Vital Signs Recent Vital Signs: Last Vital Signs Temp 97.4 F L 01/10/18 13:50 Pulse 71 01/10/18 15:59 Resp 17 01/10/18 15:59 BP 123/71 01/10/18 16:25 Pulse Ox 98 01/10/18 13:50 - Labs Result Diagrams: 01/10/18 09:30 01/10/18 09:30 Labs: Laboratory Results - last 24 hr 01/10/18 01/10/18 01/10/18 09:30 09:30 09:30 WBC 8.0 RBC 3.71 L Hgb 12.0 Hct 37.2 MCV 100.4 H D MCH 32.3 H MCHC 32.1 L RDW 16.6 H Plt Count 126 L D MPV 10.6 Neut % (Auto) 82.4 H Lymph % (Auto) 7.1 L Sheridan % (Auto) 9.2 Eos % (Auto) 0.7 Baso % (Auto) 0.6 Neut # (Auto) 6.6 Lymph # (Auto) 0.6 L Sheridan # (Auto) 0.7 Eos # (Auto) 0.1 Baso # (Auto) 0.0 Neutrophils % (Manual) 85 H Lymphocytes % (Manual) 4 L Monocytes % (Manual) 10 Eosinophils % (Manual) 1 Platelet Estimate Slightly decreased L Anisocytosis (manual) Slight Macrocytosis (manual) Slight PT 20.1 H INR 1.8 APTT 39 H Sodium 140 Potassium 5.8 H Chloride 100 Carbon Dioxide 28 Anion Gap 18 BUN 75 H Creatinine 7.8 H* D Est GFR ( Amer) 8 Est GFR (Non-Af Amer) 7 Random Glucose 188 H Calcium 9.5 Total Bilirubin 1.2 AST 39 ALT 13 L D Alkaline Phosphatase 114 Total Creatine Kinase 111 Troponin I 0.1010 NT-Pro-B Natriuret Pep > 370605 H Total Protein 8.1 Albumin 3.7 Globulin 4.5 H Albumin/Globulin Ratio 0.8 L Assessment & Plan (1) Muscle weakness Assessment and Plan: Neurology evaluation. Status: Acute (2) Dizziness Assessment and Plan: Will get carotid doppler, echo. Status: Acute (3) ESRD (end stage renal disease) on dialysis Assessment and Plan: HD as per photographic platemaker. Status: Chronic (4) Non-insulin dependent type 2 diabetes mellitus Assessment and Plan: To continue same home meds. Status: Chronic Decision To Admit - Pt Status Changed To: Hospital Disposition Of: Inpatient - Admit Certification Admit to Inpatient:: After my assessment, the patient will require hospitalization for at least two midnights. This is because of the severity of symptoms shown, intensity of services needed, and/or the medical risk in this patient being treated as an outpatient. - InPatient: Physician Admission Certification:: After my assessments, the patient requires hospitalization for at least 2 midnights. - . Bed Request Type: Telemetry Admitting Physician: Oz Watkins
[2018-01-10] MEDS: (Novolog) Insulin Aspart, Recombinant 100 u/ml 10 ml vial SC SCH ×2 (18:00→22:08)
[2018-01-11] MEDS: (Novolog) Insulin Aspart, Recombinant 100 u/ml 10 ml vial SC SCH ×4 (07:23→21:42)
--- NOTE | 2018-01-11 10:59 | CP.PCM.CON ---
History of Present Illness - History of Present Illness History of Present Illness: Podiatry Consult Note - Dr. Alfredo Cavanaugh 72 y/o male with PMHx of DM, HTN, chronic atrial fibrillation, ESRD on HD and HLD seen at bedside this morning for left foot and ankle ulcers. Pt states he was admitted to the hospital for weakness. He states he follows up every [address] Cavanaugh. Denies having any pain in the left foot or ankle wounds. Denies F/C/N/V/CP/SOB. PSHx: AV fistula, cataract surgery, skin graft to left foot SocHx: denies EtOH, cigarette or illicit drug use All: NKDA Review of Systems - Review of Systems All systems: reviewed and no additional remarkable complaints except (per HPI) Past Patient History - Tetanus Immunizations Tetanus Immunization: Unknown - Past Medical History & Family History Past Medical History?: Yes - Past Social History Smoking Status: Never Smoked - CARDIAC Hx Cardia Arrhythmia: Yes (A FIB/FLUTTER) Hx Hypercholesterolemia: Yes Hx Hypertension: Yes - PULMONARY Hx Respiratory Disorders: No - NEUROLOGICAL Hx Neurological Disorder: No - HEENT Hx HEENT Problems: Yes Hx Cataracts: Yes (BILAT.) - RENAL Hx Chronic Kidney Disease: Yes Hx Dialysis: Yes Date of Last Dialysis Treatment: 01/07/18 - ENDOCRINE/METABOLIC Hx Endocrine Disorders: Yes Hx Diabetes Mellitus Type 2: Yes - HEMATOLOGICAL/ONCOLOGICAL Hx Blood Disorders: No - INTEGUMENTARY Hx Dermatological Problems: No - MUSCULOSKELETAL/RHEUMATOLOGICAL Hx Musculoskeletal Disorders: No Hx Falls: No - GASTROINTESTINAL Hx Gastrointestinal Disorders: Yes Other/Comment: BLOOD IN STOOL - GENITOURINARY/GYNECOLOGICAL Hx Genitourinary Disorders: No - PSYCHIATRIC Hx Psychophysiologic Disorder: No Hx Substance Use: No - SURGICAL HISTORY Hx Surgeries: Yes Hx Arteriovenous Shunt: Yes (AV FISTULA RIGHT ARM) Hx Cataract Extraction: Yes (BILAT.) Hx Eye Surgery: Yes (LEFT EYE) Other/Comment: SKIN GRAFT LEFT FOOT - ANESTHESIA Hx Anesthesia: Yes Hx Anesthesia Reactions: No Hx Malignant Hyperthermia: No Meds Allergies/Adverse Reactions: Allergies Allergy/AdvReac Type Severity Reaction Status Date / Time No Known Allergies Allergy Verified 01/10/18 09:03 - Medications Medications: Current Medications Apixaban (Eliquis) 2.5 mg PO BID [facility] Last Admin: 01/11/18 10:17 Dose: 2.5 mg Calcium Acetate (Phoslo) 1,334 mg PO TID [facility] Last Admin: 01/11/18 10:16 Dose: 1,334 mg Glipizide (Glucotrol) 5 mg PO TID [facility] Last Admin: 01/11/18 10:17 Dose: 5 mg Insulin Aspart (Novolog) 0 unit SC ACHS [facility] PRN Reason: Protocol Last Admin: 01/11/18 07:23 Dose: Not Given Metoprolol Tartrate (Lopressor) 25 mg PO BID [facility] Last Admin: 01/11/18 10:16 Dose: 25 mg Rosuvastatin Calcium (Crestor) 10 mg PO HS [facility] Last Admin: 01/10/18 21:48 Dose: 10 mg Physical Exam - Constitutional Appears: Well, Non-toxic, No Acute Distress - Extremities Exam Additional comments: Left lower extremity focused exam: Vasc: DP/PT pulses palpable 2/4. Temperature gradient warm to warm. CFT < 3 sec to all digits. No pedal edema noted Derm: Open ulceration to lateral midfoot approx 4.5cm x 1.3cm x 0.2cm with mixed fibrogranular wound base and hyperkeratotic wound borders. No drainage, no malodor, no tunneling or undermining, no purulence, no fluctuance. Additional ulceration noted to lateral malleolus, circular in shape and approx 2.8cm in diameter with 80% fibrotic and 20% granular wound base, regular wound borders. No jackson wound erythema, no drainage, no malodor, no tunneling or underming, no purulence, no fluctuance. Neuro: Protective sensation slightly diminished Ortho: No tenderness to palpation of left lower extremity ulcerations - Neurological Exam Neurological exam: Alert - Psychiatric Exam Psychiatric exam: Normal Affect, Normal Mood Results - Vital Signs Recent Vital Signs: Last Vital Signs Temp 98.2 F 01/11/18 07:00 Pulse 70 01/11/18 10:14 Resp 20 01/11/18 07:00 BP 168/87 H 01/11/18 10:16 Pulse Ox 96 01/11/18 07:00 - Labs Result Diagrams: 01/10/18 09:30 01/10/18 09:30 Labs: Laboratory Results - last 24 hr 01/10/18 01/10/18 01/11/18 17:24 22:05 06:18 POC Glucose (mg/dL) 121 H 187 H 117 H Assessment & Plan - Assessment and Plan (Free Text) Assessment: 72 y/o male with left lower extremity ulcerations to foot and ankle Plan Pt seen and evaluated at bedside Discussed plan with attending Dr. Cavanaugh Labs and vitals reviewed - afebrile, no leukocytosis Wounds cleaned with saline and dressed with xeroform, DSD Wounds do not appear clinically infected at this time Will continue to follow pt while in house
--- NOTE | 2018-01-11 12:51 | CARD ---
APPROVED REPORT Date of service: 01/10/2018 EKG Measurement Heart [id number] <Conclusion> Atrial fibrillation T wave abnormality, consider anterior ischemia Abnormal ECG
--- NOTE | 2018-01-11 14:59 | CP.PCM.CON ---
History of Present Illness - History of Present Illness History of Present Illness: 72 yo [place] male, history of ESRD, HTN, DM, afib, CVA, dementia, presents with worsening instability in gait, per . Pt is a poor historian and unable to give a history. Head CT with chronic infarcts in basal ganglia and R frontal lobe. Cxray with evidence of CHF and bilateral pleural effusions. Pt received HD in hosptial yesterday with 2.5 kg UF. On HD for several years, using R AVF. Receives HD at [facility]. Review of Systems - Review of Systems Systems not reviewed;Unavailable: Dementia Past Patient History - Tetanus Immunizations Tetanus Immunization: Unknown - Past Medical History & Family History Past Medical History?: Yes - Past Social History Smoking Status: Never Smoked - CARDIAC Hx Cardia Arrhythmia: Yes (A FIB/FLUTTER) Hx Hypercholesterolemia: Yes Hx Hypertension: Yes - PULMONARY Hx Respiratory Disorders: No - NEUROLOGICAL Hx Neurological Disorder: No - HEENT Hx HEENT Problems: Yes Hx Cataracts: Yes (BILAT.) - RENAL Hx Chronic Kidney Disease: Yes Hx Dialysis: Yes Date of Last Dialysis Treatment: 01/07/18 - ENDOCRINE/METABOLIC Hx Endocrine Disorders: Yes Hx Diabetes Mellitus Type 2: Yes - HEMATOLOGICAL/ONCOLOGICAL Hx Blood Disorders: No - INTEGUMENTARY Hx Dermatological Problems: No - MUSCULOSKELETAL/RHEUMATOLOGICAL Hx Musculoskeletal Disorders: No Hx Falls: No - GASTROINTESTINAL Hx Gastrointestinal Disorders: Yes Other/Comment: BLOOD IN STOOL - GENITOURINARY/GYNECOLOGICAL Hx Genitourinary Disorders: No - PSYCHIATRIC Hx Psychophysiologic Disorder: No Hx Substance Use: No - SURGICAL HISTORY Hx Surgeries: Yes Hx Arteriovenous Shunt: Yes (AV FISTULA RIGHT ARM) Hx Cataract Extraction: Yes (BILAT.) Hx Eye Surgery: Yes (LEFT EYE) Other/Comment: SKIN GRAFT LEFT FOOT - ANESTHESIA Hx Anesthesia: Yes Hx Anesthesia Reactions: No Hx Malignant Hyperthermia: No Meds Allergies/Adverse Reactions: Allergies Allergy/AdvReac Type Severity Reaction Status Date / Time No Known Allergies Allergy Verified 01/10/18 09:03 - Medications Medications: Current Medications Apixaban (Eliquis) 2.5 mg PO BID [facility] Last Admin: 01/11/18 10:17 Dose: 2.5 mg Calcium Acetate (Phoslo) 1,334 mg PO TID [facility] Last Admin: 01/11/18 14:02 Dose: 1,334 mg Glipizide (Glucotrol) 5 mg PO TID [facility] Last Admin: 01/11/18 14:02 Dose: 5 mg Insulin Aspart (Novolog) 0 unit SC ACHS [facility] PRN Reason: Protocol Last Admin: 01/11/18 11:56 Dose: Not Given Metoprolol Tartrate (Lopressor) 25 mg PO BID [facility] Last Admin: 01/11/18 10:16 Dose: 25 mg Rosuvastatin Calcium (Crestor) 10 mg PO HS [facility] Last Admin: 01/10/18 21:48 Dose: 10 mg Physical Exam - Constitutional Appears: Non-toxic, Chronically Ill - Head Exam Head Exam: ATRAUMATIC, NORMAL INSPECTION - Eye Exam Eye Exam: EOMI - ENT Exam ENT Exam: Mucous Membranes Moist - Neck Exam Neck exam: Positive for: Full Rom. Negative for: Lymphadenopathy - Respiratory Exam Respiratory Exam: Decreased Breath Sounds - Cardiovascular Exam Cardiovascular Exam: REGULAR RHYTHM. absent: Rubs - GI/Abdominal Exam GI & Abdominal Exam: Normal Bowel Sounds, Soft. absent: Tenderness - Extremities Exam Extremities exam: Negative for: pedal edema - Neurological Exam Neurological exam: Alert Additional comments: poor historian Results - Vital Signs Recent Vital Signs: Last Vital Signs Temp 98.2 F 01/11/18 07:00 Pulse 71 01/11/18 12:00 Resp 20 01/11/18 07:00 BP 168/87 H 01/11/18 10:16 Pulse Ox 96 01/11/18 07:00 - Labs Result Diagrams: 01/10/18 09:30 01/10/18 09:30 Labs: Laboratory Results - last 24 hr 01/10/18 01/10/18 01/11/18 17:24 22:05 06:18 POC Glucose (mg/dL) 121 H 187 H 117 H Assessment & Plan - Assessment and Plan (Free Text) Assessment: esrd dementia chronic cva htn diabetes afib failure to thrive dysequilibruim fluid overload challenge EDW on dialysis fluid restriction suggest Neuro evaluation
--- NOTE | 2018-01-11 15:49 | VASCLAB ---
Date of service: 01/11/2018 PROCEDURE: HISTORY: Near syncopy COMPARISON: None available. TECHNIQUE: Grayscale and duplex Doppler evaluation of the cervical carotid and vertebral arteries were performed. The common carotid, carotid bifurcations and cervical Internal Carotid Artery (ICA) and proximal External Carotid Artery (ECA) were evaluated. The vertebral arteries were evaluated for gross patency and flow direction. Report prepared by Colby Borrero, BS, RVT FINDINGS: RIGHT CAROTID ARTERIES: 1. Common Carotid Artery: No significant focal plaque formation of the right common carotid artery. Maximum Peak Systolic velocity: 45 cm/sec: End-diastolic velocity 8 cm/sec. 2. Carotid Bifurcation: Calcific plaque formation. Maximum Peak Systolic velocity: 57 cm/sec: End-diastolic velocity 8 cm/sec. 3. Internal Carotid Artery: Plaque description: 3.1. Proximal Segment: Peak systolic velocity 68 cm/sec: End-diastolic velocity 13 cm/sec - % stenosis 0-15% 3.2. Middle Segment: Peak systolic velocity 53 cm/sec: End-diastolic velocity 11 cm/sec - % stenosis 0-15% 3.3. Distal Segment: Peak systolic velocity 78 cm/sec: End-diastolic velocity 17 cm/sec - % stenosis 0-15% 4. External Carotid Artery: No significant focal plaque formation. Peak systolic velocity 121 cm/sec 5. ICA/CCA Ratio: 1.7 LEFT CAROTID ARTERIES: 1. Common Carotid Artery: No significant focal plaque formation of the left common carotid artery. Maximum Peak Systolic velocity: 67 cm/sec: End-diastolic velocity 0 cm/sec. 2. Carotid Bifurcation: plaque formation. Maximum Peak Systolic velocity: 54 cm/sec: End-diastolic velocity 0 cm/sec. 3. Internal Carotid Artery: Plaque description: 3.1. Proximal Segment: Peak systolic velocity 63 cm/sec: End-diastolic velocity 19 cm/sec - % stenosis 0-15% 3.2. Middle Segment: Peak systolic velocity 69 cm/sec: End-diastolic velocity 14 cm/sec - % stenosis 0-15% 3.3. Distal Segment: Peak systolic velocity 129 cm/sec: End-diastolic velocity 23 cm/sec - % stenosis 0-15% 4. External Carotid Artery: No significant focal plaque formation. Peak systolic velocity cm/sec 5. ICA/CCA Ratio: 1.9 VERTEBRAL ARTERIES: 1. Right Vertebral Artery: The right vertebral artery flow direction is antegrade. 2. Left Vertebral Artery: The left vertebral artery flow direction is antegrade. OTHER FINDINGS: 1. Right Brachial Blood pressure: AVF mmHg. 2. Left Brachial Blood pressure: 162 mmHg. IMPRESSION: RIGHT: Duplex scan does not suggest hemodynamically significant stenosis of the right extracranial carotid arteries. LEFT: Duplex scan does not suggest hemodynamically significant stenosis of the left extracranial carotid arteries.
--- NOTE | 2018-01-11 21:49 | CARD ---
APPROVED REPORT Date of service: 01/11/2018 EXAM: Two-dimensional and M-mode echocardiogram with Doppler and color Doppler. Other Information Quality : GoodRhythm : INDICATION Atrial Fibrillation Syncope Congestive Heart Failure ESRD RISK FACTORS Diabetes 2D DIMENSIONS IVSd1.2 (0.7-1.1cm)Aortic Root (2D)3.1 (2.0-3.7cm) LVDd4.5 (3.9-5.9cm)PWd1.0 (0.7-1.1cm) LVDs3.1 (2.5-4.0cm)FS (%) 30.3 % LVEF (%)57.9 (>50%) M-Mode DIMENSIONS RVDd3.25 (2.1-3.2cm)Left Atrium (MM)3.78 (2.5-4.0cm) IVSd1.53 (0.7-1.1cm)Aortic Root3.50 (2.2-3.7cm) LVDd4.20 (4.0-5.6cm)Aortic Cusp Exc.1.73 (1.5-2.0cm) PWd1.07 (0.7-1.1cm)FS (%) 26 % LVDs3.12 (2.0-3.8cm)TAPSE0.8 cm LVEF (%)51 (>50%) Aortic Valve AI P 1/2 [id number] Mitral Valve MV E Zvcaybma967.1cm/sMV A Upewenob97.6cm/sE/A ratio4.1 PISA0.49 cm TDI E/Lateral E'0.0E/Medial E'0.0 Tricuspid Valve TR Peak [id number]/sTR Peak Gr.[id number] LEFT VENTRICLE The left ventricle is normal size. There is mild concentric left ventricular hypertrophy. Left ventricle systolic function is borderline. The Ejection Fraction is 50-55%. There is normal LV segmental wall motion. Transmitral Doppler flow pattern is Grade I-abnormal relaxation pattern. There is no ventricular septal defect visualized. RIGHT VENTRICLE The right ventricle is mildly to moderately dilated. Systolic function is mildly reduced. ATRIA The left atrium is mildly dilated. The right atrium is moderately dilated. ? catheter in RA AORTIC VALVE The aortic valve is moderately sclerotic. The aortic valve is tri-cuspid. There is trace aortic regurgitation. There is no aortic valvular stenosis. MITRAL VALVE Mitral annular calcification is mild to moderate. There is no evidence of mitral valve prolapse. Mitral regurgitation is mild.ERO 0.3 cm2 TRICUSPID VALVE The tricuspid valve leaflets are thickened and calcified, but open well. There is mild to moderate tricuspid regurgitation. Right ventricular systolic pressure is estimated at 40-50 mmHg. There is moderate pulmonary hypertension. PULMONIC VALVE The pulmonic valve is not well visualized. There is mild pulmonic valvular regurgitation. GREAT VESSELS The aortic root is normal in size. The ascending aorta is normal in size. The IVC is normal in size and collapses >50% with inspiration. PERICARDIAL EFFUSION There is no pericardial effusion. moderate complex pleural effusion <Conclusion> There is mild concentric left ventricular hypertrophy. Left ventricle systolic function is borderline. The Ejection Fraction is 50-55%. Transmitral Doppler flow pattern is Grade I-abnormal relaxation pattern. The right ventricle is mildly to moderately dilated. There is trace aortic regurgitation. Mitral regurgitation is mild.ERO 0.3 cm2 There is moderate pulmonary hypertension. moderate complex pleural effusion
[2018-01-12] MEDS: (Novolog) Insulin Aspart, Recombinant 100 u/ml 10 ml vial SC SCH ×4 (08:59→21:29)
--- NOTE | 2018-01-12 11:04 | CP.PCM.PN ---
Subjective - Date & Time of Evaluation Date of Evaluation: 01/12/18 Time of Evaluation: 11:01 - Subjective Subjective: Seen on dialysis. Has had CHF- on increased UF with HD More alert; oriented now Neuro eval in progress K was elevated again- on HD now Pleural effusions noted- might need thoracentesis Objective - Vital Signs/Intake and Output Vital Signs (last 24 hours): Temp Pulse Resp BP Pulse Ox 97.4 F L 88 18 134/57 L 98 01/12/18 09:34 01/12/18 09:34 01/12/18 09:34 01/12/18 09:50 01/12/18 09:20 Intake and Output: 01/12/18 01/12/18 06:59 18:59 Intake Total 400 Output Total 150 Balance 250 - Medications Medications: Current Medications Apixaban (Eliquis) 2.5 mg PO BID [facility] Last Admin: 01/11/18 22:33 Dose: 2.5 mg Calcium Acetate (Phoslo) 1,334 mg PO TID [facility] Last Admin: 01/12/18 09:41 Dose: Not Given Glipizide (Glucotrol) 5 mg PO TID [facility] Last Admin: 01/12/18 09:41 Dose: Not Given Insulin Aspart (Novolog) 0 unit SC [facility] PRN Reason: Protocol Last Admin: 01/12/18 08:59 Dose: 1 units Metoprolol Tartrate (Lopressor) 25 mg PO BID [facility] Last Admin: 01/12/18 09:41 Dose: Not Given Rosuvastatin Calcium (Crestor) 10 mg PO HS [facility] Last Admin: 01/11/18 22:33 Dose: 10 mg - Labs Labs: 01/10/18 09:30 01/10/18 09:30 PT 20.1 SECONDS (9.7-12.2) H 01/10/18 09:30 INR 1.8 01/10/18 09:30 APTT 39 SECONDS (21-34) H 01/10/18 09:30 - Constitutional Appears: No Acute Distress, Chronically Ill - Head Exam Head Exam: ATRAUMATIC, NORMAL INSPECTION - Eye Exam Eye Exam: EOMI, Normal appearance - Neck Exam Neck Exam: Normal Inspection. absent: Tenderness - Respiratory Exam Respiratory Exam: Decreased Breath Sounds, Respiratory Distress - Cardiovascular Exam Cardiovascular Exam: Irregular Rhythm, +S1 - GI/Abdominal Exam GI & Abdominal Exam: Soft. absent: Tenderness - Extremities Exam Extremities Exam: Normal Inspection. absent: Tenderness - Neurological Exam Neurological Exam: Awake, CN II-XII Intact - Skin Skin Exam: Dry, Warm Assessment and Plan (1) CHF (congestive heart failure) Status: Acute (2) Dizziness Status: Acute (3) ESRD (end stage renal disease) on dialysis Status: Chronic (4) Atrial fibrillation Status: Acute (5) PVD (peripheral vascular disease) Status: Acute (6) Non-insulin dependent type 2 diabetes mellitus Status: Chronic - Assessment and Plan (Free Text) Plan: Increase UF with HD Monitor BP If effusions persist can consider thoracentesis Neuro eval
--- NOTE | 2018-01-12 22:01 | CON ---
DATE: 01/12/2018 NEUROLOGY CONSULTATION REASON FOR CONSULTATION: Unsteady gait. HISTORY OF PRESENT ILLNESS: The patient is a 72-year-old male who has been asked for evaluation of unsteady gait. The patient came to the emergency room as he has been having weakness and unsteady gait. He states the weakness developed more and more. He also has generalized weakness. The patient has been walking on his right foot mostly because he recently had a surgery in the left foot, and the bat lathe operator asked him not to walk on the left foot. He denies any focal weakness in the arms or legs. Denies any headaches or dizziness. REVIEW OF SYSTEMS: Denies any headaches, dizziness, chest pain, shortness of breath, abdominal pain, constipation, diarrhea, dysuria, cough or sputum production. PAST MEDICAL HISTORY: Includes atrial fibrillation, hypertension, diabetes mellitus, end-stage renal disease, on hemodialysis. MEDICATIONS: Included multivitamin, metoprolol, , glipizide, Eliquis, PhosLo, and Lipitor. ALLERGIES: NO KNOWN DRUG ALLERGIES. SOCIAL HISTORY: Denies smoking, use of alcohol, or illicit drugs. FAMILY HISTORY: Reviewed and noncontributory to the case. PHYSICAL EXAMINATION: GENERAL: The patient is an elderly pleasant male, lying on the bed, in no acute distress. VITAL SIGNS: Blood pressure is 134/57, heart rate is 88 per minute, breathing at the rate of 16 per minute, temperature is 97.4 degrees Fahrenheit. HEENT: Normocephalic and atraumatic. NECK: Supple. There are no carotid bruits. LUNGS: Clear. CARDIOVASCULAR SYSTEM: S1 and S2 are audible. No murmurs. ABDOMEN: Soft and nontender. Bowel sounds are present. NEUROLOGIC EXAMINATION: Mental Status: The patient is awake and alert, oriented to time, place, and person. Speech is fluent. Naming and repetition are normal. Memory and cognation are intact. Cranial nerve examination: Pupils 3 mm bilaterally, reactive to light. Visual bui are full. Extraocular movements are intact. There is no facial asymmetry. Palate is upgoing bilaterally and tongue is midline. Motor examination: Tone is normal. Power is 4/5 bilaterally in all extremities. Reflexes are absent. Plantars are downgoing bilaterally. Cerebellar examination: [id number] shows no dysmetria. Sensory examination: There is decreased vibration sensation in the feet. Gait is deferred at the moment. LABORATORY DATA: Labs are reviewed. CT scan of the head showed no evidence of acute intracranial hemorrhage or any pathology. 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 Scattered small chronic appearing bilateral basal nuclei lacunar type infarct. [id number] chronic white matter ischemic changes. His WBC is 8, hemoglobin is 12, hematocrit 37.2 and platelets of 126. Sodium is 140, potassium 5.8, chloride 100, carbon dioxide 28, BUN of 75, creatinine 7.8, and glucose of 188. IMPRESSION: 1. Generalized weakness. 2. Gait dysfunction secondary to generalized weakness as well as secondary to status post left foot surgery. 3. Peripheral vascular disease. 4. Atrial fibrillation. 5. End-stage renal disease, on hemodialyses. RECOMMENDATIONS: 1. The patient has no focal neurological deficits. 2. The patient's generalized weakness is likely secondary to his underlying renal failure. 3. The patient to be started on physical therapy once cleared from podiatry standpoint. However, the patient should still get bedside physical therapy for muscle strengthening. 4. The patient to be continued on Eliquis for his underlying atrial fibrillation. 5. Please continue supportive care and other treatment. Thank you for the opportunity to participate in the care of this patient. Sebastian Grimes MD
--- NOTE | 2018-01-12 23:35 | CP.PCM.PN ---
Subjective - Date & Time of Evaluation Date of Evaluation: 01/12/18 Time of Evaluation: 20:00 - Subjective Subjective: Patient feels better, stronger, with better appetite. However has hematuria. Aguilar catheter discontinued and ELiquis on hold. Duplex venous scan of the lower extremities: no DVT. Duplex carotid scan: no significant stenosis. Echo: bordeline LV systolic function with mild MR, TR, minimal AI, mild right ventricle and right atrial enlargement, moderate pleural effusion. Objective - Vital Signs/Intake and Output Vital Signs (last 24 hours): Temp Pulse Resp BP Pulse Ox 98.1 F 72 20 154/65 H 96 01/12/18 15:00 01/12/18 20:00 01/12/18 15:00 01/12/18 18:32 01/12/18 15:00 Intake and Output: 01/12/18 01/13/18 18:59 06:59 Output Total 25 Balance -25 - Medications Medications: Current Medications Apixaban (Eliquis) 2.5 mg PO BID [facility] Last Admin: 01/11/18 22:33 Dose: 2.5 mg Calcium Acetate (Phoslo) 1,334 mg PO TID [facility] Last Admin: 01/12/18 18:32 Dose: 1,334 mg Glipizide (Glucotrol) 5 mg PO TID [facility] Last Admin: 01/12/18 18:32 Dose: 5 mg Insulin Aspart (Novolog) 0 unit SC [facility] PRN Reason: Protocol Last Admin: 01/12/18 21:29 Dose: Not Given Metoprolol Tartrate (Lopressor) 25 mg PO BID [facility] Last Admin: 01/12/18 18:32 Dose: 25 mg Rosuvastatin Calcium (Crestor) 10 mg PO [facility] Last Admin: 01/12/18 21:18 Dose: 10 mg - Labs Labs: 01/10/18 09:30 01/10/18 09:30 PT 20.1 SECONDS (9.7-12.2) H 01/10/18 09:30 INR 1.8 01/10/18 09:30 APTT 39 SECONDS (21-34) H 01/10/18 09:30 - Constitutional Appears: No Acute Distress, Chronically Ill - Head Exam Head Exam: NORMOCEPHALIC - Eye Exam Eye Exam: Normal appearance Pupil Exam: NORMAL ACCOMODATION - ENT Exam ENT Exam: Normal Exam - Neck Exam Neck Exam: Normal Inspection - Respiratory Exam Respiratory Exam: Rhonchi - Cardiovascular Exam Cardiovascular Exam: Irregular Rhythm - GI/Abdominal Exam GI & Abdominal Exam: Soft, Normal Bowel Sounds - Rectal Exam Rectal Exam: Deferred - Extremities Exam Extremities Exam: Normal Inspection - Back Exam Back Exam: NORMAL INSPECTION - Neurological Exam Neurological Exam: Alert, Awake, Oriented x3 - Psychiatric Exam Psychiatric exam: Anxious - Skin Skin Exam: Dry, Intact, Normal Color, Warm Assessment and Plan (1) Muscle weakness Assessment & Plan: Improving with HD. Status: Acute (2) Dizziness Status: Acute (3) ESRD (end stage renal disease) on dialysis Assessment & Plan: On hemodialysis. Status: Chronic (4) Non-insulin dependent type 2 diabetes mellitus Status: Chronic (5) Hematuria Assessment & Plan: Urine culture. Discontinue Aguilar catheter. Status: Acute
[2018-01-13 07:41] LABS: HEMOGLOBIN 11.9 g/dL (12.0-18.0); MEAN CELL VOLUME 99.7 fL (80.0-94.0); MEAN CORPUSCULAR HEMOGLOBIN 32.4 pg (27.0-31.0); MEAN CORPUSCULAR HGB CONC 32.5 g/dL (33.0-37.0); MEAN PLATELET VOLUME 9.9 fL (7.2-11.7); RBC 3.68 Mil/uL (4.40-5.90); WHITE BLOOD COUNT 6.6 K/uL (4.8-10.8)
[2018-01-13] MEDS: (Novolog) Insulin Aspart, Recombinant 100 u/ml 10 ml vial SC SCH ×4 (08:06→21:43)
[2018-01-13 08:31] LABS: ALB/GLOB RATIO 0.8 (1.0-2.1); ALBUMIN 3.1 g/dL (3.5-5.0); CALCIUM 8.5 mg/dl (8.6-10.4)
--- NOTE | 2018-01-13 12:07 | CP.PCM.PN ---
Subjective - Date & Time of Evaluation Date of Evaluation: 01/12/18 Time of Evaluation: 11:50 - Subjective Subjective: 72 y/o male seen and evaluated in dialysis with attending Dr. Cavanaugh regarding multiple ulcerations to left lower extremity. Pt resting comfortably at time of visit. Denies pain to the left lower extremity. States dressings have remained clean and intact. Denies numbness, tingling or burning to the lower extremities. Denies F/C/N/V/CP/SOB Objective - Vital Signs/Intake and Output Vital Signs (last 24 hours): Temp Pulse Resp BP Pulse Ox 97.8 F 72 20 172/74 H 97 01/13/18 07:13 01/13/18 07:40 01/13/18 07:13 01/13/18 09:12 01/13/18 07:13 - Medications Medications: Current Medications Apixaban (Eliquis) 2.5 mg PO BID [facility] Last Admin: 01/11/18 22:33 Dose: 2.5 mg Calcium Acetate (Phoslo) 1,334 mg PO TID [facility] Last Admin: 01/13/18 09:13 Dose: 1,334 mg Glipizide (Glucotrol) 5 mg PO TID [facility] Last Admin: 01/13/18 09:12 Dose: 5 mg Insulin Aspart (Novolog) 0 unit SC [facility] PRN Reason: Protocol Last Admin: 01/13/18 08:06 Dose: 1 units Metoprolol Tartrate (Lopressor) 25 mg PO BID [facility] Last Admin: 01/13/18 09:12 Dose: 25 mg Rosuvastatin Calcium (Crestor) 10 mg PO HS [facility] Last Admin: 01/12/18 21:18 Dose: 10 mg Tamsulosin HCl (Flomax) 0.4 mg PO DAILY [facility] Last Admin: 01/13/18 11:01 Dose: 0.4 mg - Labs Labs: 01/13/18 07:35 01/13/18 07:35 PT 20.1 SECONDS (9.7-12.2) H 01/10/18 09:30 INR 1.8 01/10/18 09:30 APTT 39 SECONDS (21-34) H 01/10/18 09:30 - Constitutional Appears: Well, Non-toxic, No Acute Distress - Extremities Exam Additional comments: Left lower extremity focused exam: Mild serosanguinous strikethrough noted on bandage- Vasc: DP/PT pulses palpable 2/4. Temperature gradient warm to warm. CFT < 3 sec to all digits. No pedal edema noted Derm: Open ulceration to lateral midfoot approx 4.5cm x 1.3cm x 0.2cm with mixed fibrogranular wound base and hyperkeratotic wound borders. No active drainage, no malodor, no tunneling or undermining, no purulence, no fluctuance. There is exposed bone in wound bed but wound appears stable at this time. Additional ulceration noted to lateral malleolus, circular in shape and approx 2.8cm in diameter with 80% fibrotic and 20% granular wound base, regular wound borders. No jackson wound erythema, no drainage, no malodor, no tunneling or underming, no purulence, no fluctuance. Neuro: Protective sensation slightly diminished Ortho: No tenderness to palpation of left lower extremity ulcerations - Neurological Exam Neurological Exam: Alert, Awake, Oriented x3 - Psychiatric Exam Psychiatric exam: Normal Affect, Normal Mood Assessment and Plan - Assessment and Plan (Free Text) Assessment: 72 y/o male with left lower extremity ulcerations to foot and ankle Plan Pt seen and evaluated at bedsidewith attending Dr. Cavanaugh Labs and vitals reviewed - afebrile, no leukocytosis Wounds cleaned with saline and dressed with hydrogel and DSD Wounds do not appear clinically infected at this time Pt is stable from podiatry standpoint, will continue local wound care No plans for surgical intervention at this time Will continue to follow pt while in house
--- NOTE | 2018-01-13 12:09 | CP.PCM.PN ---
Subjective - Date & Time of Evaluation Date of Evaluation: 01/13/18 Time of Evaluation: 12:08 - Subjective Subjective: 72 y/o male seen at bedside this afternoon with attending Dr. Alfredo Cavanaugh regarding left foot and ankle ulcerations. Pt is accompanied by at bedside. Denies pain to the LLE. Denies F/C/N/V/CP/SOB. States he will likely be discharged Tuesday. Objective - Vital Signs/Intake and Output Vital Signs (last 24 hours): Temp Pulse Resp BP Pulse Ox 97.8 F 72 20 172/74 H 97 01/13/18 07:13 01/13/18 07:40 01/13/18 07:13 01/13/18 09:12 01/13/18 07:13 - Medications Medications: Current Medications Apixaban (Eliquis) 2.5 mg PO BID [facility] Last Admin: 01/11/18 22:33 Dose: 2.5 mg Calcium Acetate (Phoslo) 1,334 mg PO TID [facility] Last Admin: 01/13/18 09:13 Dose: 1,334 mg Glipizide (Glucotrol) 5 mg PO TID [facility] Last Admin: 01/13/18 09:12 Dose: 5 mg Insulin Aspart (Novolog) 0 unit SC [facility] PRN Reason: Protocol Last Admin: 01/13/18 08:06 Dose: 1 units Metoprolol Tartrate (Lopressor) 25 mg PO BID [facility] Last Admin: 01/13/18 09:12 Dose: 25 mg Rosuvastatin Calcium (Crestor) 10 mg PO HS [facility] Last Admin: 01/12/18 21:18 Dose: 10 mg Tamsulosin HCl (Flomax) 0.4 mg PO DAILY [facility] Last Admin: 01/13/18 11:01 Dose: 0.4 mg - Labs Labs: 01/13/18 07:35 01/13/18 07:35 PT 20.1 SECONDS (9.7-12.2) H 01/10/18 09:30 INR 1.8 01/10/18 09:30 APTT 39 SECONDS (21-34) H 01/10/18 09:30 - Constitutional Appears: Well, Non-toxic, No Acute Distress - Extremities Exam Additional comments: Left lower extremity focused examination: Minimal serosanguinous strikethrough noted on bandage- Vasc: DP/PT pulses palpable 2/4. Temperature gradient warm to warm. CFT < 3 sec to all digits. No pedal edema noted Derm: Open ulceration to lateral midfoot approx 4.3cm x 1.2cm x 0.2cm with mixed fibrogranular wound base and hyperkeratotic wound borders. No active drainage, no malodor, no tunneling or undermining, no purulence, no fluctuance. Exposed bone noted to proximal aspect of wound bed, however, wound appears stable at this time. Additional circular ulceration noted to lateral malleolus, approx 2.8cm in diameter with 80% fibrotic and 20% granular wound base with regular wound borders and no jackson wound erythema. No active drainage, no malodor , no tunneling or underming, no purulence, no fluctuance. Neuro: Protective sensation slightly diminished Ortho: No tenderness to palpation of left lower extremity ulcerations - Neurological Exam Neurological Exam: Alert, Awake, Oriented x3 - Psychiatric Exam Psychiatric exam: Normal Affect, Normal Mood Assessment and Plan - Assessment and Plan (Free Text) Assessment: 72 y/o male with left lower extremity ulcerations to foot and ankle Plan Pt seen and evaluated at bedsidewith attending Dr. Cavanaugh Labs and vitals reviewed - afebrile, no leukocytosis Wounds to left lower extremity cleaned with saline and dressed with xeroform and DSD Wounds do not appear clinically infected at this time Pt is stable from podiatry standpoint, will continue local wound care No plans for surgical intervention Will continue to follow pt while in house
--- NOTE | 2018-01-13 14:34 | CP.PCM.PN ---
Subjective - Date & Time of Evaluation Date of Evaluation: 01/13/18 Time of Evaluation: 14:30 - Subjective Subjective: Feels better Still not ambulating much on foot care for wounds s/p HD 01/12- UF 2600ml BP elevated Gross hematuria noted- for eval Objective - Vital Signs/Intake and Output Vital Signs (last 24 hours): Temp Pulse Resp BP Pulse Ox 97.8 F 72 20 172/74 H 97 01/13/18 07:13 01/13/18 07:40 01/13/18 07:13 01/13/18 09:12 01/13/18 07:13 - Medications Medications: Current Medications Apixaban (Eliquis) 2.5 mg PO BID [facility] Last Admin: 01/11/18 22:33 Dose: 2.5 mg Calcium Acetate (Phoslo) 1,334 mg PO TID [facility] Last Admin: 01/13/18 13:04 Dose: 1,334 mg Glipizide (Glucotrol) 5 mg PO TID [facility] Last Admin: 01/13/18 13:04 Dose: 5 mg Insulin Aspart (Novolog) 0 unit SC [facility] PRN Reason: Protocol Last Admin: 01/13/18 12:16 Dose: 3 units Metoprolol Tartrate (Lopressor) 25 mg PO BID [facility] Last Admin: 01/13/18 09:12 Dose: 25 mg Rosuvastatin Calcium (Crestor) 10 mg PO HS [facility] Last Admin: 01/12/18 21:18 Dose: 10 mg Tamsulosin HCl (Flomax) 0.4 mg PO DAILY [facility] Last Admin: 01/13/18 11:01 Dose: 0.4 mg - Labs Labs: 01/13/18 07:35 01/13/18 07:35 PT 20.1 SECONDS (9.7-12.2) H 01/10/18 09:30 INR 1.8 01/10/18 09:30 APTT 39 SECONDS (21-34) H 01/10/18 09:30 - Constitutional Appears: No Acute Distress, Chronically Ill - Head Exam Head Exam: ATRAUMATIC, NORMAL INSPECTION - Eye Exam Eye Exam: EOMI, Normal appearance - Neck Exam Neck Exam: Normal Inspection. absent: Tenderness - Respiratory Exam Respiratory Exam: Clear to Ausculation Bilateral, NORMAL BREATHING PATTERN - Cardiovascular Exam Cardiovascular Exam: REGULAR RHYTHM, +S1 - GI/Abdominal Exam GI & Abdominal Exam: Soft. absent: Tenderness - Extremities Exam Extremities Exam: Normal Inspection. absent: Tenderness - Neurological Exam Neurological Exam: Awake, CN II-XII Intact - Skin Skin Exam: Dry, Warm Assessment and Plan (1) CHF (congestive heart failure) Status: Acute (2) Dizziness Status: Acute (3) ESRD (end stage renal disease) on dialysis Status: Chronic (4) Atrial fibrillation Status: Acute (5) PVD (peripheral vascular disease) Status: Acute (6) Non-insulin dependent type 2 diabetes mellitus Status: Chronic - Assessment and Plan (Free Text) Plan: Increase UF goal with HD- TTS schedule Avoid phosphate enemas Monitor BP- hopefully will be better controlled with increased fluid removal eval foot care
--- NOTE | 2018-01-13 17:04 | CP.PCM.CON ---
Past Patient History - Tetanus Immunizations Tetanus Immunization: Unknown - Past Medical History & Family History Past Medical History?: Yes - Past Social History Smoking Status: Never Smoked - CARDIAC Hx Cardiac Disorders: Yes (cardiac arrhythmia) Hx Congestive Heart Failure: Yes Hx Hypercholesterolemia: Yes Hx Hypertension: Yes - PULMONARY Hx Respiratory Disorders: No - NEUROLOGICAL Hx Neurological Disorder: No - HEENT Hx HEENT Problems: Yes Hx Cataracts: Yes (BILAT.) - RENAL Hx Chronic Kidney Disease: Yes - ENDOCRINE/METABOLIC Hx Diabetes Mellitus Type 2: Yes - HEMATOLOGICAL/ONCOLOGICAL Hx Blood Disorders: No - INTEGUMENTARY Hx Dermatological Problems: No - MUSCULOSKELETAL/RHEUMATOLOGICAL Hx Musculoskeletal Disorders: No Hx Falls: No - GASTROINTESTINAL Hx Gastrointestinal Disorders: Yes Other/Comment: BLOOD IN STOOL - GENITOURINARY/GYNECOLOGICAL Hx Genitourinary Disorders: No - PSYCHIATRIC Hx Substance Use: No - SURGICAL HISTORY Hx Surgeries: Yes Hx Arteriovenous Shunt: Yes (AV FISTULA RIGHT ARM) Hx Cataract Extraction: Yes (BILAT.) Hx Eye Surgery: Yes (LEFT EYE) Other/Comment: SKIN GRAFT LEFT FOOT - ANESTHESIA Hx Anesthesia: Yes Hx Anesthesia Reactions: No Hx Malignant Hyperthermia: No Meds Allergies/Adverse Reactions: Allergies Allergy/AdvReac Type Severity Reaction Status Date / Time No Known Allergies Allergy Verified 01/10/18 09:03 - Medications Medications: Current Medications Apixaban (Eliquis) 2.5 mg PO BID [facility] Last Admin: 01/11/18 22:33 Dose: 2.5 mg Calcium Acetate (Phoslo) 1,334 mg PO TID [facility] Last Admin: 01/13/18 13:04 Dose: 1,334 mg Glipizide (Glucotrol) 5 mg PO TID [facility] Last Admin: 01/13/18 13:04 Dose: 5 mg Insulin Aspart (Novolog) 0 unit SC [facility] PRN Reason: Protocol Last Admin: 01/13/18 12:16 Dose: 3 units Metoprolol Tartrate (Lopressor) 25 mg PO BID [facility] Last Admin: 01/13/18 09:12 Dose: 25 mg Rosuvastatin Calcium (Crestor) 10 mg PO HS [facility] Last Admin: 01/12/18 21:18 Dose: 10 mg Tamsulosin HCl (Flomax) 0.4 mg PO DAILY [facility] Last Admin: 01/13/18 11:01 Dose: 0.4 mg Results - Vital Signs Recent Vital Signs: Last Vital Signs Temp 98.1 F 01/13/18 15:00 Pulse 74 01/13/18 15:00 Resp 18 01/13/18 15:00 BP 139/64 01/13/18 15:00 Pulse Ox 92 L 01/13/18 15:00 - Labs Result Diagrams: 01/13/18 07:35 01/13/18 07:35 Labs: Laboratory Results - last 24 hr 01/12/18 01/12/18 01/12/18 16:56 17:19 21:03 WBC RBC Hgb Hct MCV MCH MCHC RDW Plt Count MPV Sodium Potassium Chloride Carbon Dioxide Anion Gap BUN Creatinine Est GFR ( Amer) Est GFR (Non-Af Amer) POC Glucose (mg/dL) 276 H 204 H Random Glucose Calcium Phosphorus Magnesium Total Bilirubin AST ALT Alkaline Phosphatase Total Protein Albumin Globulin Albumin/Globulin Ratio Prostate Specific Ag 0.754 01/13/18 01/13/18 01/13/18 06:32 07:35 07:35 WBC 6.6 RBC 3.68 L Hgb 11.9 L Hct 36.6 MCV 99.7 H MCH 32.4 H MCHC 32.5 L RDW 16.0 H Plt Count 142 MPV 9.9 Sodium 139 Potassium 4.6 Chloride 98 Carbon Dioxide 29 Anion Gap 16 BUN 48 H Creatinine 5.2 H Est GFR ( Amer) 13 Est GFR (Non-Af Amer) 11 POC Glucose (mg/dL) 171 H Random Glucose 163 H Calcium 8.5 L Phosphorus 3.3 Magnesium 2.3 Total Bilirubin 0.7 AST 22 ALT 18 L D Alkaline Phosphatase 139 H D Total Protein 6.9 Albumin 3.1 L Globulin 3.8 Albumin/Globulin Ratio 0.8 L Prostate Specific Ag 01/13/18 11:20 WBC RBC Hgb Hct MCV MCH MCHC RDW Plt Count MPV Sodium Potassium Chloride Carbon Dioxide Anion Gap BUN Creatinine Est GFR ( Amer) Est GFR (Non-Af Amer) POC Glucose (mg/dL) 274 H Random Glucose Calcium Phosphorus Magnesium Total Bilirubin AST ALT Alkaline Phosphatase Total Protein Albumin Globulin Albumin/Globulin Ratio Prostate Specific Ag Assessment & Plan - Assessment and Plan (Free Text) Assessment: IMP: urinary retention BPH fecal impaction Renal failure Hypertension DM full note tbd Thank you YS - Date & Time Date: 01/13/18 Time: 10:45
--- NOTE | 2018-01-13 23:45 | CP.PCM.PN ---
Subjective - Date & Time of Evaluation Date of Evaluation: 01/13/18 Time of Evaluation: 20:30 - Subjective Subjective: Patient feels better, with better appetite and better strength. Objective - Vital Signs/Intake and Output Vital Signs (last 24 hours): Temp Pulse Resp BP Pulse Ox 98.1 F 74 18 139/64 92 L 01/13/18 15:00 01/13/18 15:00 01/13/18 15:00 01/13/18 18:09 01/13/18 15:00 - Medications Medications: Current Medications Apixaban (Eliquis) 2.5 mg PO BID [facility] Last Admin: 01/11/18 22:33 Dose: 2.5 mg Calcium Acetate (Phoslo) 1,334 mg PO TID [facility] Last Admin: 01/13/18 18:10 Dose: 1,334 mg Glipizide (Glucotrol) 5 mg PO TID [facility] Last Admin: 01/13/18 18:09 Dose: 5 mg Insulin Aspart (Novolog) 0 unit SC [facility] PRN Reason: Protocol Last Admin: 01/13/18 21:43 Dose: Not Given Metoprolol Tartrate (Lopressor) 25 mg PO BID [facility] Last Admin: 01/13/18 18:09 Dose: 25 mg Rosuvastatin Calcium (Crestor) 10 mg PO HS [facility] Last Admin: 01/13/18 22:24 Dose: 10 mg Tamsulosin HCl (Flomax) 0.4 mg PO DAILY [facility] Last Admin: 01/13/18 11:01 Dose: 0.4 mg - Labs Labs: 01/13/18 07:35 01/13/18 07:35 PT 20.1 SECONDS (9.7-12.2) H 01/10/18 09:30 INR 1.8 01/10/18 09:30 APTT 39 SECONDS (21-34) H 01/10/18 09:30 - Constitutional Appears: No Acute Distress, Chronically Ill - Head Exam Head Exam: NORMOCEPHALIC - Eye Exam Eye Exam: Normal appearance - ENT Exam ENT Exam: Normal Exam - Neck Exam Neck Exam: Normal Inspection - Respiratory Exam Respiratory Exam: Clear to Ausculation Bilateral, NORMAL BREATHING PATTERN - Cardiovascular Exam Cardiovascular Exam: Irregular Rhythm, Murmur - GI/Abdominal Exam GI & Abdominal Exam: Soft, Normal Bowel Sounds - Rectal Exam Rectal Exam: Deferred - Exam Exam: NORMAL INSPECTION - Extremities Exam Extremities Exam: Normal Capillary Refill - Back Exam Back Exam: NORMAL INSPECTION - Neurological Exam Neurological Exam: Alert, Awake, Oriented x3 - Psychiatric Exam Psychiatric exam: Anxious - Skin Skin Exam: Dry, Intact Assessment and Plan (1) Muscle weakness Status: Acute (2) Dizziness Status: Acute (3) ESRD (end stage renal disease) on dialysis Status: Chronic (4) Non-insulin dependent type 2 diabetes mellitus Status: Chronic (5) Hematuria Status: Acute
[2018-01-14] MEDS: (Novolog) Insulin Aspart, Recombinant 100 u/ml 10 ml vial SC SCH ×4 (08:00→22:00)
--- NOTE | 2018-01-14 11:27 | CP.PCM.PN ---
Subjective - Date & Time of Evaluation Date of Evaluation: 01/14/18 Time of Evaluation: 11:26 - Subjective Subjective: on HD 3 kg uf no complaints left leg dressed unable to obtain ROS due to dementia Objective - Vital Signs/Intake and Output Vital Signs (last 24 hours): Temp Pulse Resp BP Pulse Ox 98 F 80 16 136/67 98 01/14/18 09:35 01/14/18 09:35 01/14/18 09:35 01/14/18 11:05 01/14/18 09:35 Intake and Output: 01/14/18 01/14/18 06:59 18:59 Intake Total 200 Output Total 50 Balance 150 - Medications Medications: Current Medications Apixaban (Eliquis) 2.5 mg PO BID [facility] Last Admin: 01/11/18 22:33 Dose: 2.5 mg Calcium Acetate (Phoslo) 1,334 mg PO TID [facility] Last Admin: 01/13/18 18:10 Dose: 1,334 mg Glipizide (Glucotrol) 5 mg PO TID [facility] Last Admin: 01/13/18 18:09 Dose: 5 mg Insulin Aspart (Novolog) 0 unit SC [facility] PRN Reason: Protocol Last Admin: 01/13/18 21:43 Dose: Not Given Metoprolol Tartrate (Lopressor) 25 mg PO BID [facility] Last Admin: 01/13/18 18:09 Dose: 25 mg Rosuvastatin Calcium (Crestor) 10 mg PO HS [facility] Last Admin: 01/13/18 22:24 Dose: 10 mg Tamsulosin HCl (Flomax) 0.4 mg PO DAILY [facility] Last Admin: 01/13/18 11:01 Dose: 0.4 mg - Labs Labs: 01/13/18 07:35 01/13/18 07:35 PT 20.1 SECONDS (9.7-12.2) H 01/10/18 09:30 INR 1.8 01/10/18 09:30 APTT 39 SECONDS (21-34) H 01/10/18 09:30 - Constitutional Appears: No Acute Distress, Confused - Head Exam Head Exam: ATRAUMATIC, NORMAL INSPECTION - Eye Exam Eye Exam: EOMI - Neck Exam Neck Exam: Full ROM. absent: Lymphadenopathy - Respiratory Exam Respiratory Exam: Clear to Ausculation Bilateral - Cardiovascular Exam Cardiovascular Exam: REGULAR RHYTHM. absent: Rubs - GI/Abdominal Exam GI & Abdominal Exam: Soft. absent: Tenderness - Extremities Exam Extremities Exam: absent: Pedal Edema Additional comments: left leg bandaged - Neurological Exam Neurological Exam: Alert, Awake Assessment and Plan - Assessment and Plan (Free Text) Assessment: support with HD EDW being challenged Gu f/u Podiatry f/u
--- NOTE | 2018-01-14 14:02 | CP.PCM.PN ---
Subjective - Date & Time of Evaluation Date of Evaluation: 01/14/18 Time of Evaluation: 09:40 - Subjective Subjective: Podiatry progress note for attending Dr. Cavanaugh 72 y/o male patient seen at bedside this morning for left foot and ankle ulcerations. Pt is AAO X 3 and not in acute distress. Patient denies pain to the LLE. Patient denies any overnight F/C/N/V/CP/SOB. Patient denies any drainage from his ulcers. Objective - Vital Signs/Intake and Output Vital Signs (last 24 hours): Temp Pulse Resp BP Pulse Ox 97.4 F L 76 16 138/71 98 01/14/18 13:05 01/14/18 13:05 01/14/18 13:05 01/14/18 13:05 01/14/18 13:05 Intake and Output: 01/14/18 01/14/18 06:59 18:59 Intake Total 200 Output Total 50 Balance 150 - Medications Medications: Current Medications Apixaban (Eliquis) 2.5 mg PO BID [facility] Last Admin: 01/11/18 22:33 Dose: 2.5 mg Calcium Acetate (Phoslo) 1,334 mg PO TID [facility] Last Admin: 01/13/18 18:10 Dose: 1,334 mg Glipizide (Glucotrol) 5 mg PO TID [facility] Last Admin: 01/13/18 18:09 Dose: 5 mg Insulin Aspart (Novolog) 0 unit SC [facility] PRN Reason: Protocol Last Admin: 01/13/18 21:43 Dose: Not Given Metoprolol Tartrate (Lopressor) 25 mg PO BID [facility] Last Admin: 01/13/18 18:09 Dose: 25 mg Rosuvastatin Calcium (Crestor) 10 mg PO HS [facility] Last Admin: 01/13/18 22:24 Dose: 10 mg Tamsulosin HCl (Flomax) 0.4 mg PO DAILY [facility] Last Admin: 01/13/18 11:01 Dose: 0.4 mg - Labs Labs: 01/13/18 07:35 01/13/18 07:35 PT 20.1 SECONDS (9.7-12.2) H 01/10/18 09:30 INR 1.8 01/10/18 09:30 APTT 39 SECONDS (21-34) H 01/10/18 09:30 - Constitutional Appears: Well, Non-toxic, No Acute Distress - Head Exam Head Exam: ATRAUMATIC, NORMOCEPHALIC - Extremities Exam Additional comments: Left lower extremity focused examination: Vasc: DP/PT pulses palpable 2/4. Temperature gradient warm to cool from proximal to distal. Cap refill < 3 sec to all digits. No pedal edema noted. Neuro: Protective sensation slightly diminished. Derm: Open ulceration to lateral midfoot approx 4.2cm x 1.2cm x 0.2cm with mixed fibrogranular wound base 50:50 and hyperkeratotic wound borders. No active drainage, no malodor, no tunneling or undermining, no purulence, no fluctuance. Exposed bone noted to proximal aspect of wound bed, however, wound appears stable at this time. Additional circular ulceration noted to lateral malleolus, approx 2.6 cm in diameter with 80% granular and 20% fibrotic wound base with regular wound borders and no jackson wound erythema. No active drainage, no malodor, no tunneling or undermining, no purulence, no fluctuance. MSK: No pain to palpation of left lower extremity ulcerations. - Neurological Exam Neurological Exam: Alert, Awake, Oriented x3 - Psychiatric Exam Psychiatric exam: Normal Affect, Normal Mood Assessment and Plan - Assessment and Plan (Free Text) Assessment: 72 y/o male patient seen and evaluated at the bedside for left lower extremity ulcerations to foot and ankle Plan: Pt seen and evaluated at bedside Plan discussed in details with attending Dr. Cavanaugh Labs and vitals reviewed - afebrile, no leukocytosis Wounds to left lower extremity dressed with xeroform and DSD Wounds do not appear clinically infected at this time Pt is stable from podiatry standpoint, will continue local wound care. No plans for surgical intervention Will continue to follow up patient while in house
--- NOTE | 2018-01-14 22:52 | CP.PCM.PN ---
Subjective - Date & Time of Evaluation Date of Evaluation: 01/14/18 Time of Evaluation: 16:00 - Subjective Subjective: Patient denies any hematuria, feels better, with better appetite. Urine culture revealed G+ cocci. Objective - Vital Signs/Intake and Output Vital Signs (last 24 hours): Temp Pulse Resp BP Pulse Ox 97.4 F L 73 20 143/70 97 01/14/18 15:50 01/14/18 16:00 01/14/18 15:50 01/14/18 17:34 01/14/18 15:50 - Medications Medications: Current Medications Apixaban (Eliquis) 2.5 mg PO BID [facility] Last Admin: 01/11/18 22:33 Dose: 2.5 mg Calcium Acetate (Phoslo) 1,334 mg PO TID [facility] Last Admin: 01/14/18 17:34 Dose: 1,334 mg Glipizide (Glucotrol) 5 mg PO TID [facility] Last Admin: 01/14/18 17:34 Dose: 5 mg Insulin Aspart (Novolog) 0 unit SC [facility] PRN Reason: Protocol Last Admin: 01/14/18 22:00 Dose: Not Given Metoprolol Tartrate (Lopressor) 25 mg PO BID [facility] Last Admin: 01/14/18 17:34 Dose: 25 mg Rosuvastatin Calcium (Crestor) 10 mg PO HS [facility] Last Admin: 01/14/18 21:35 Dose: 10 mg Tamsulosin HCl (Flomax) 0.4 mg PO DAILY [facility] Last Admin: 01/14/18 10:00 Dose: Not Given - Labs Labs: 01/13/18 07:35 01/13/18 07:35 PT 20.1 SECONDS (9.7-12.2) H 01/10/18 09:30 INR 1.8 01/10/18 09:30 APTT 39 SECONDS (21-34) H 01/10/18 09:30 - Constitutional Appears: No Acute Distress - Head Exam Head Exam: NORMAL INSPECTION - Eye Exam Eye Exam: Normal appearance - ENT Exam ENT Exam: Normal Exam - Neck Exam Neck Exam: Normal Inspection - Respiratory Exam Respiratory Exam: Clear to Ausculation Bilateral - Cardiovascular Exam Cardiovascular Exam: Irregular Rhythm, Murmur - GI/Abdominal Exam GI & Abdominal Exam: Soft, Normal Bowel Sounds - Rectal Exam Rectal Exam: Deferred - Extremities Exam Extremities Exam: Normal Inspection - Back Exam Back Exam: NORMAL INSPECTION - Neurological Exam Neurological Exam: Alert, Awake, Oriented x3 - Psychiatric Exam Psychiatric exam: Anxious - Skin Skin Exam: Dry, Intact, Warm Assessment and Plan (1) Muscle weakness Status: Acute (2) Dizziness Status: Acute (3) ESRD (end stage renal disease) on dialysis Status: Chronic (4) Non-insulin dependent type 2 diabetes mellitus Status: Chronic (5) Hematuria Assessment & Plan: Hematuria has stopped. Status: Acute
[2018-01-15] MEDS: (Novolog) Insulin Aspart, Recombinant 100 u/ml 10 ml vial SC SCH ×4 (08:26→22:45)
--- NOTE | 2018-01-15 12:05 | RAD ---
Date of service: 01/15/2018 HISTORY: F/U bilateral effusion COMPARISON: Chest radiograph dated 01/10/2018. TECHNIQUE: Chest PA and lateral FINDINGS: LUNGS: No active pulmonary disease. PLEURA: Small bilateral pleural effusions. CARDIOVASCULAR: Atherosclerotic aortic calcifications. Cardiomediastinal silhouette stably enlarged. OSSEOUS STRUCTURES: Unchanged. VISUALIZED UPPER ABDOMEN: Normal. OTHER FINDINGS: Right upper extremity vascular stent. IMPRESSION: Small bilateral pleural effusions.
--- NOTE | 2018-01-15 13:52 | CP.PCM.PN ---
Subjective - Date & Time of Evaluation Date of Evaluation: 01/15/18 Time of Evaluation: 13:50 - Subjective Subjective: Podiatry progress note for attending Dr. Cavanaugh 72 y/o male patient seen at bedside this morning for left foot and ankle ulcerations. Pt is AAO X 3 and not in acute distress. Patient denies any pain to the left LE. Patient denies any overnight F/C/N/V/CP/SOB. Patient denies any drainage from his ulcers. Objective - Vital Signs/Intake and Output Vital Signs (last 24 hours): Temp Pulse Resp BP Pulse Ox 97.7 F 69 20 163/78 H 95 01/15/18 07:00 01/15/18 07:00 01/15/18 07:00 01/15/18 11:00 01/15/18 07:00 - Medications Medications: Current Medications Apixaban (Eliquis) 2.5 mg PO BID [facility] Last Admin: 01/11/18 22:33 Dose: 2.5 mg Calcium Acetate (Phoslo) 1,334 mg PO TID [facility] Last Admin: 01/15/18 11:00 Dose: 1,334 mg Glipizide (Glucotrol) 5 mg PO TID [facility] Last Admin: 01/15/18 11:00 Dose: 5 mg Insulin Aspart (Novolog) 0 unit SC [facility] PRN Reason: Protocol Last Admin: 01/15/18 12:54 Dose: 3 units Metoprolol Tartrate (Lopressor) 25 mg PO BID [facility] Last Admin: 01/15/18 11:00 Dose: 25 mg Rosuvastatin Calcium (Crestor) 10 mg PO HS [facility] Last Admin: 01/14/18 21:35 Dose: 10 mg Tamsulosin HCl (Flomax) 0.4 mg PO DAILY [facility] Last Admin: 01/15/18 11:00 Dose: 0.4 mg - Labs Labs: 01/13/18 07:35 01/13/18 07:35 PT 20.1 SECONDS (9.7-12.2) H 01/10/18 09:30 INR 1.8 01/10/18 09:30 APTT 39 SECONDS (21-34) H 01/10/18 09:30 - Constitutional Appears: Well, Non-toxic, No Acute Distress - Head Exam Head Exam: ATRAUMATIC, NORMOCEPHALIC - Extremities Exam Additional comments: Left lower extremity focused examination: Vasc: DP/PT pulses palpable 2/4. Temperature gradient warm to cool from proximal to distal. Cap refill < 3 sec to all digits. No pedal edema noted. Neuro: Protective sensation slightly diminished. Derm: Open ulceration to lateral midfoot approx 4.2cm x 1.2cm x 0.2cm with mixed fibrogranular wound base 50:50 and macerated wound borders. minimal serous drainage, no malodor, no tunneling or undermining, no purulence, no fluctuance. Exposed bone noted to proximal aspect of wound bed, however, wound appears stable at this time. Additional circular ulceration noted to lateral malleolus, approx 2.6 cm in diameter with 80% granular and 20% fibrotic wound base with regular wound borders and no jackson wound erythema. No active drainage, no malodor, no tunneling or undermining, no purulence, no fluctuance. MSK: No pain to palpation of left lower extremity ulcerations. - Neurological Exam Neurological Exam: Alert, Awake, Oriented x3 - Psychiatric Exam Psychiatric exam: Normal Affect, Normal Mood Assessment and Plan - Assessment and Plan (Free Text) Assessment: 72 y/o male patient seen and evaluated at the bedside for left lower extremity ulcerations to foot and ankle Plan: Pt seen and evaluated at bedside Plan discussed in details with attending Dr. Cavanaugh Labs and vitals reviewed - afebrile, no leukocytosis Wounds to left lower extremity dressed with xeroform and DSD Wounds do not appear clinically infected at this time. Pt is stable from podiatry standpoint, will continue local wound care. No plans for surgical intervention Will continue to follow up patient while in house
--- NOTE | 2018-01-15 14:02 | CP.PCM.CON ---
History of Present Illness - History of Present Illness History of Present Illness: 72 y/o male was admitted for severe gen weakness and left foot and ankle ulcers. Has hx of severe PVD with vascular interventions in past Now referred for ID eval of VRE urine Denies urinary complaints at this time PMH DM, HTN, chronic atrial fibrillation, ESRD on HD and HLD PSHx: AV fistula, cataract surgery, skin graft to left foot SocHx: denies EtOH, cigarette or illicit drug use All: NKDA Review of Systems - Review of Systems All systems: reviewed and no additional remarkable complaints except - Constitutional Constitutional: As Per HPI, Anorexia, Malaise. absent: Chills - EENT Eyes: absent: As Per HPI, Blind Spots, Blurred Vision, Change in Vision, Decreased Night Vision, Diplopia, Discharge, Dry Eye, Exophthalmos, Floaters, Irritation, Itchy Eyes, Loss of Peripheral Vision, Pain, Photophobia, Requires Corrective Lenses, Sees Flashes, Spots in Vision, Tunnel Vision, Other Visual Disturbances, Loss of Vision, Other Ears: absent: As Per HPI, Decreased Hearing, Ear Discharge, Ear Pain, Tinnitus, Abnormal Hearing, Disequilibrium, Dizziness, Other Nose/Mouth/Throat: absent: As Per HPI, Epistaxis, Nasal Congestion, Nasal Discharge, Nasal Obstruction, Nasal Trauma, Nose Pain, Post Nasal Drip, Sinus Pain, Sinus Pressure, Bleeding Gums, Change in Voice, Dental Pain, Dry Mouth, Dysphagia, Halitosis, Hoarsness, Lip Swelling, Mouth Lesions, Mouth Pain, Odynophagia, Sore Throat, Throat Swelling, Tongue Swelling, Facial Pain, Neck Pain, Neck Mass, Other - Cardiovascular Cardiovascular: As Per HPI - Gastrointestinal Gastrointestinal: absent: As Per HPI, Abdominal Pain, Belching, Bloating, Change in Bowel Habits, Change in Stool Character, Coffee Ground Emesis, Constipation, Cramping, Diarrhea, Dyspepsia, Dysphagia, Early Satiety, Excessive Flatus, Fecal Incontinence, Heartburn, Hematemesis, Hematochezia, Loose Stools, Melena, Nausea, Odynophagia, Temesmus, Vomiting, Other - Genitourinary Genitourinary: As Per HPI - Musculoskeletal Musculoskeletal: As Per HPI - Integumentary Integumentary: As Per HPI, Skin Pain, Wounds - Neurological Neurological: As Per HPI - Psychiatric Psychiatric: absent: As Per HPI, Abnormal Sleep Pattern, Anhedonia, Anxiety, Auditory Hallucinations, Behavioral Changes, Change in Appetite, Change in Libido, Confusion, Depression, Difficulty Concentrating, Hallucinations, Homicidal Ideation, Hopelessness, Irritability, Memory Loss, Mood Swings, Panic Attacks, Paranoia, Suicidal Ideation, Visual Hallucinations, Tactile Hallucinations, Other - Endocrine Endocrine: absent: As Per HPI, Change in Body Appearance, Change in Libido, Cold Intolorance, Deepening of Voice, Excessive Sweating, Fatigue, Flushing, Heat Intolorance, Increase in Ring/Shoe/Hat Size, Palpitations, Polydipsia, Polyphagia, Polyuria, Other - Hematologic/Lymphatic Hematologic: absent: As Per HPI, Easy Bleeding, Easy Bruising, Lymphadenopathy, Other Past Patient History - Tetanus Immunizations Tetanus Immunization: Unknown - Past Medical History & Family History Past Medical History?: Yes - Past Social History Smoking Status: Never Smoked - CARDIAC Hx Cardiac Disorders: Yes (cardiac arrhythmia) Hx Congestive Heart Failure: Yes Hx Hypercholesterolemia: Yes Hx Hypertension: Yes - PULMONARY Hx Respiratory Disorders: No - NEUROLOGICAL Hx Neurological Disorder: No - HEENT Hx HEENT Problems: Yes Hx Cataracts: Yes (BILAT.) - RENAL Hx Chronic Kidney Disease: Yes - ENDOCRINE/METABOLIC Hx Diabetes Mellitus Type 2: Yes - HEMATOLOGICAL/ONCOLOGICAL Hx Blood Disorders: No - INTEGUMENTARY Hx Dermatological Problems: No - MUSCULOSKELETAL/RHEUMATOLOGICAL Hx Musculoskeletal Disorders: No Hx Falls: No - GASTROINTESTINAL Hx Gastrointestinal Disorders: Yes Other/Comment: BLOOD IN STOOL - GENITOURINARY/GYNECOLOGICAL Hx Genitourinary Disorders: No - PSYCHIATRIC Hx Substance Use: No - SURGICAL HISTORY Hx Surgeries: Yes Hx Arteriovenous Shunt: Yes (AV FISTULA RIGHT ARM) Hx Cataract Extraction: Yes (BILAT.) Hx Eye Surgery: Yes (LEFT EYE) Other/Comment: SKIN GRAFT LEFT FOOT - ANESTHESIA Hx Anesthesia: Yes Hx Anesthesia Reactions: No Hx Malignant Hyperthermia: No Meds Allergies/Adverse Reactions: Allergies Allergy/AdvReac Type Severity Reaction Status Date / Time No Known Allergies Allergy Verified 01/10/18 09:03 - Medications Medications: Current Medications Apixaban (Eliquis) 2.5 mg PO BID [facility] Last Admin: 01/11/18 22:33 Dose: 2.5 mg Calcium Acetate (Phoslo) 1,334 mg PO TID [facility] Last Admin: 01/15/18 11:00 Dose: 1,334 mg Glipizide (Glucotrol) 5 mg PO TID [facility] Last Admin: 01/15/18 11:00 Dose: 5 mg Insulin Aspart (Novolog) 0 unit SC [facility] PRN Reason: Protocol Last Admin: 01/15/18 12:54 Dose: 3 units Metoprolol Tartrate (Lopressor) 25 mg PO BID [facility] Last Admin: 01/15/18 11:00 Dose: 25 mg Rosuvastatin Calcium (Crestor) 10 mg PO HS [facility] Last Admin: 01/14/18 21:35 Dose: 10 mg Tamsulosin HCl (Flomax) 0.4 mg PO DAILY [facility] Last Admin: 01/15/18 11:00 Dose: 0.4 mg Physical Exam - Constitutional Appears: Non-toxic, Chronically Ill - Head Exam Head Exam: NORMOCEPHALIC - Eye Exam Eye Exam: absent: Scleral icterus - ENT Exam ENT Exam: Mucous Membranes Dry - Neck Exam Neck exam: Negative for: Thyromegaly - Respiratory Exam Respiratory Exam: Decreased Breath Sounds - Cardiovascular Exam Cardiovascular Exam: REGULAR RHYTHM - GI/Abdominal Exam GI & Abdominal Exam: Diminished Bowel Sounds, Soft. absent: Tenderness - Rectal Exam Rectal Exam: Deferred - Exam Exam: NORMAL INSPECTION - Extremities Exam Extremities exam: Positive for: tenderness. Negative for: calf tenderness, pedal pulses present Additional comments: Left lower extremity focused exam: Vasc: DP/PT pulses palpable 2/4. Temperature gradient warm to warm. CFT < 3 sec to all digits. No pedal edema noted Derm: Open ulceration to lateral midfoot approx 4.5cm x 1.3cm x 0.2cm with mixed fibrogranular wound base and hyperkeratotic wound borders. No drainage, no malodor, no tunneling or undermining, no purulence, no fluctuance. Additional ulceration noted to lateral malleolus, circular in shape and approx 2.8cm in diameter with 80% fibrotic and 20% granular wound base, regular wound borders. No jackson wound erythema, no drainage, no malodor, no tunneling or underming, no purulence, no fluctuance. Neuro: Protective sensation slightly diminished Ortho: No tenderness to palpation of left lower extremity ulcerations - Back Exam Back exam: absent: CVA tenderness (L), CVA tenderness (R) - Neurological Exam Neurological exam: Alert, CN II-XII Intact, Oriented x3, Reflexes Normal - Psychiatric Exam Psychiatric exam: Depressed - Skin Skin Exam: Dry Results - Vital Signs Recent Vital Signs: Last Vital Signs Temp 97.7 F 01/15/18 07:00 Pulse 69 01/15/18 07:00 Resp 20 01/15/18 07:00 BP 163/78 H 01/15/18 11:00 Pulse Ox 95 01/15/18 07:00 - Labs Result Diagrams: 01/13/18 07:35 01/13/18 07:35 Labs: Laboratory Results - last 24 hr 01/14/18 01/14/18 01/15/18 16:34 20:54 06:25 POC Glucose (mg/dL) 283 H 328 H 166 H Assessment & Plan (1) CHF (congestive heart failure) Status: Acute (2) Dizziness Status: Acute (3) Hematuria Status: Acute (4) Muscle weakness Status: Acute (5) ESRD (end stage renal disease) on dialysis Status: Chronic (6) Atrial fibrillation Status: Acute (7) Gangrene associated with type 2 diabetes mellitus Status: Acute (8) Infected ulcer of skin Status: Acute (9) PVD (peripheral vascular disease) Status: Acute (10) Non-insulin dependent type 2 diabetes mellitus Status: Chronic - Assessment and Plan (Free Text) Assessment: VRE in urine- will confirm with repeat culture- ? contaminant severe PVD with likely ischemic ulcers left foot - prognosis guarded Podiatry and vascular eval in progress add zyvox pending cultures wound care isolation
[2018-01-15] MEDS: Linezolid 600 mg in D5W 300 ml 600 MG/300 ML BAG IVPB SCH (15:22)
[2018-01-15 20:48] LABS: SQUAMOUS EPITHIAL 1 /hpf (0-5); URINE BACTERIA FEW (<OCC); URINE BILIRUBIN NEGATIVE (NEGATIVE); URINE BLOOD 3+ (NEGATIVE); URINE CLARITY Hazy (Clear); URINE COLOR Amber (YELLOW); URINE GLUCOSE (UA) 3+ mg/dL (Normal); URINE LEUKOCYTE ESTERASE 1+ Leu/uL (Negative); URINE PROTEIN 3+ mg/dL (NEGATIVE); URINE UROBILINOGEN NORMAL mg/dL (0.2-1.0)
[2018-01-16] MEDS: Linezolid 600 mg in D5W 300 ml 600 MG/300 ML BAG IVPB SCH ×2 (02:44→13:49)
--- NOTE | 2018-01-16 07:15 | CON ---
DATE: 01/13/2018 HISTORY OF PRESENT ILLNESS: Urology consultation is requested by Dr. Watkins, urology consultation is filled by Dr. Reva Jernigan. REASON FOR CONSULTATION: Urinary retention. HISTORY: The patient is a 72-year-old male with urinary retention. The patient is in otherwise fair health. The patient presented to the emergency room. He presented with symptoms of dizziness and weakness. The patient reports no chest pain. No nausea or vomiting. The patient has history of hypertension. The patient has history of diabetes. There is history of atrial fibrillation. The patient has history of renal failure. The patient has been on hemodialysis. The patient was found to have urinary retention. Aguilar catheter was inserted. The patient previously voided with fair to good urinary stream. The patient had good urinary control. No history of hematuria. The patient has had medical and cardiology and nephrology care during this admission. PAST SURGICAL HISTORY: Includes cataract surgery, skin graft to the lower extremities and creation of his AV fistula. The patient lives with his . He does not smoke or drink. The patient also was found to have CHF and pleural effusions on his admission chest x-ray. Some of the history is provided by the patient. Some is provided by his . Some is obtained as reviewing the chart. PHYSICAL EXAMINATION: GENERAL: The patient is a well-developed, well-nourished elderly male. The patient is awake. He is conversant. He is unable to report detailed answers to my questions. ABDOMEN: Soft, nontender, nondistended. No mass or organomegaly. BACK: No CVA tenderness. GENITALIA: Without inflammation. Urine is clear via the Aguilar catheter. Rectal examination, normal sphincter tone. Large amount of soft stool which precludes thorough prostatic examination. Prostate is smooth and greater than 50 mL in size as can be best determination in the presence of the fecal impaction. LABORATORY DATA: On admission, hematocrit 37, white blood count 8000. BUN 75, creatinine 7.8. Troponin level is 0.1. NT-proB natriuretic peptide is greater than 175,000. Serum PSA is 0.754. IMPRESSION: A 72-year-old male with urinary retention. Prostatic enlargement. Possible fecal impaction. The patient has significant other comorbid diseases including hypertension, diabetes, renal failure and congestive heart failure. RECOMMENDATIONS AND PLAN: Maintain Aguilar catheter in place. Urine culture. Treatment for fecal impaction. Aguilar catheter to be removed for trial of voiding once overall status improves and the patient is out of bed. Thank you for recommending the patient for urology consultation. Reva MD Delon cc: Oz Watkins MD.
[2018-01-16] MEDS: (Novolog) Insulin Aspart, Recombinant 100 u/ml 10 ml vial SC SCH ×4 (09:33→21:45)
--- NOTE | 2018-01-16 11:07 | CP.PCM.PN ---
Subjective - Date & Time of Evaluation Date of Evaluation: 01/16/18 Time of Evaluation: 09:00 - Subjective Subjective: urine + for VRE u/a infected Objective - Vital Signs/Intake and Output Vital Signs (last 24 hours): Temp Pulse Resp BP Pulse Ox 97.7 F 66 18 130/68 95 01/16/18 07:56 01/16/18 07:56 01/16/18 07:56 01/16/18 09:37 01/16/18 07:56 Intake and Output: 01/16/18 01/16/18 06:59 18:59 Intake Total 540 Output Total 75 Balance 465 - Medications Medications: Current Medications Apixaban (Eliquis) 2.5 mg PO BID [facility] Last Admin: 01/11/18 22:33 Dose: 2.5 mg Calcium Acetate (Phoslo) 1,334 mg PO TID [facility] Last Admin: 01/15/18 19:00 Dose: 1,334 mg Glipizide (Glucotrol) 5 mg PO TID [facility] Last Admin: 01/16/18 09:32 Dose: 5 mg Linezolid (Zyvox 600mg/300ml D5w) 600 mg in 300 mls @ 200 mls/hr IVPB Q12H [facility] PRN Reason: Protocol Last Admin: 01/16/18 02:44 Dose: 200 mls/hr Insulin Aspart (Novolog) 0 unit SC ACHS [facility] PRN Reason: Protocol Last Admin: 01/16/18 09:33 Dose: 1 units Metoprolol Tartrate (Lopressor) 25 mg PO BID [facility] Last Admin: 01/16/18 09:37 Dose: 25 mg Rosuvastatin Calcium (Crestor) 10 mg PO HS [facility] Last Admin: 01/15/18 21:22 Dose: 10 mg Tamsulosin HCl (Flomax) 0.4 mg PO DAILY [facility] Last Admin: 01/16/18 09:32 Dose: 0.4 mg - Labs Labs: 01/13/18 07:35 01/13/18 07:35 PT 20.1 SECONDS (9.7-12.2) H 01/10/18 09:30 INR 1.8 01/10/18 09:30 APTT 39 SECONDS (21-34) H 01/10/18 09:30 - Constitutional Appears: Non-toxic, Chronically Ill - Head Exam Head Exam: NORMOCEPHALIC - Eye Exam Eye Exam: PERRL - ENT Exam ENT Exam: Mucous Membranes Dry - Neck Exam Neck Exam: absent: Lymphadenopathy - Respiratory Exam Respiratory Exam: Decreased Breath Sounds - Cardiovascular Exam Cardiovascular Exam: REGULAR RHYTHM - GI/Abdominal Exam GI & Abdominal Exam: Distended, Soft - Rectal Exam Rectal Exam: Deferred - Exam Exam: NORMAL INSPECTION Assessment and Plan (1) CHF (congestive heart failure) Status: Acute (2) Dizziness Status: Acute (3) Hematuria Status: Acute (4) Muscle weakness Status: Acute (5) ESRD (end stage renal disease) on dialysis Status: Chronic (6) Atrial fibrillation Status: Acute (7) Gangrene associated with type 2 diabetes mellitus Status: Acute (8) Infected ulcer of skin Status: Acute (9) PVD (peripheral vascular disease) Status: Acute (10) Non-insulin dependent type 2 diabetes mellitus Status: Chronic - Assessment and Plan (Free Text) Assessment: cont iv zyvox consider eval
--- NOTE | 2018-01-16 12:35 | CP.PCM.PN ---
Subjective - Date & Time of Evaluation Date of Evaluation: 01/16/18 Time of Evaluation: 12:32 - Subjective Subjective: Alert On zyvox for VRE UTI stable dialysis course no new complaint labs reviewed Objective - Vital Signs/Intake and Output Vital Signs (last 24 hours): Temp Pulse Resp BP Pulse Ox 97.7 F 66 18 130/68 95 01/16/18 07:56 01/16/18 07:56 01/16/18 07:56 01/16/18 09:37 01/16/18 07:56 Intake and Output: 01/16/18 01/16/18 06:59 18:59 Intake Total 540 Output Total 75 Balance 465 - Medications Medications: Current Medications Apixaban (Eliquis) 2.5 mg PO BID [facility] Last Admin: 01/11/18 22:33 Dose: 2.5 mg Calcium Acetate (Phoslo) 1,334 mg PO TID [facility] Last Admin: 01/15/18 19:00 Dose: 1,334 mg Glipizide (Glucotrol) 5 mg PO TID [facility] Last Admin: 01/16/18 09:32 Dose: 5 mg Linezolid (Zyvox 600mg/300ml D5w) 600 mg in 300 mls @ 200 mls/hr IVPB Q12H [facility] PRN Reason: Protocol Last Admin: 01/16/18 02:44 Dose: 200 mls/hr Insulin Aspart (Novolog) 0 unit SC ACHS [facility] PRN Reason: Protocol Last Admin: 01/16/18 09:33 Dose: 1 units Metoprolol Tartrate (Lopressor) 25 mg PO BID [facility] Last Admin: 01/16/18 09:37 Dose: 25 mg Rosuvastatin Calcium (Crestor) 10 mg PO HS [facility] Last Admin: 01/15/18 21:22 Dose: 10 mg Tamsulosin HCl (Flomax) 0.4 mg PO DAILY [facility] Last Admin: 01/16/18 09:32 Dose: 0.4 mg - Labs Labs: 01/13/18 07:35 01/13/18 07:35 PT 20.1 SECONDS (9.7-12.2) H 01/10/18 09:30 INR 1.8 01/10/18 09:30 APTT 39 SECONDS (21-34) H 01/10/18 09:30 - Constitutional Appears: No Acute Distress, Chronically Ill - Head Exam Head Exam: ATRAUMATIC, NORMAL INSPECTION - Eye Exam Eye Exam: EOMI, Normal appearance - Neck Exam Neck Exam: Normal Inspection. absent: Tenderness - Respiratory Exam Respiratory Exam: Clear to Ausculation Bilateral, NORMAL BREATHING PATTERN - Cardiovascular Exam Cardiovascular Exam: REGULAR RHYTHM, +S1 - GI/Abdominal Exam GI & Abdominal Exam: Soft. absent: Tenderness - Extremities Exam Extremities Exam: Normal Inspection. absent: Tenderness - Neurological Exam Neurological Exam: Awake, CN II-XII Intact - Skin Skin Exam: Warm. absent: Dry Assessment and Plan (1) CHF (congestive heart failure) Status: Acute (2) Dizziness Status: Acute (3) ESRD (end stage renal disease) on dialysis Status: Chronic (4) Atrial fibrillation Status: Acute (5) PVD (peripheral vascular disease) Status: Acute (6) Non-insulin dependent type 2 diabetes mellitus Status: Chronic - Assessment and Plan (Free Text) Plan: IV zyvox Dialysis TTS Wound care- LE lesion
--- NOTE | 2018-01-16 12:44 | PCM.URO ---
Urology Progress Note - General General: No Complaints - Subjective Abdominal Pain: No Flank Pain: No Nausea: No Vomiting: No Voiding Well: No Hematuria: No Good Stream: Yes Dsypnea: No Chest Pain: No Fever & Chills: No - Objective Lab Studies: Reviewed Lab Results Last 24 Hours: Laboratory Results - last 24 hr 01/15/18 01/15/18 01/15/18 12:45 17:05 20:29 POC Glucose (mg/dL) 293 H 407 H* Urine Color Liset Urine Clarity Hazy Urine pH 5.0 Ur Specific Tow 1.013 Urine Protein 3+ H Urine Glucose (UA) 3+ H Urine Ketones Negative Urine Blood 3+ H Urine Nitrate Negative Urine Bilirubin Negative Urine Urobilinogen Normal Ur Leukocyte Esterase 1+ H Urine WBC (Auto) 35 H Urine RBC (Auto) 582 H Ur Squamous Epith Cells 1 Urine Bacteria Few H 01/15/18 01/16/18 22:25 06:44 POC Glucose (mg/dL) 94 155 H Urine Color Urine Clarity Urine pH Ur Specific Tow Urine Protein Urine Glucose (UA) Urine Ketones Urine Blood Urine Nitrate Urine Bilirubin Urine Urobilinogen Ur Leukocyte Esterase Urine WBC (Auto) Urine RBC (Auto) Ur Squamous Epith Cells Urine Bacteria Intake & Output: Intake & Output 01/15/18 01/16/18 01/16/18 18:59 06:59 18:59 Intake Total 540 Output Total 75 Balance 465 Weight 117 lb Intake: Intake, IV Amount 300 Left Forearm 300 Oral 240 Output: Urine 75 Urine, Voided 75 Other: # Voids Urethral (Aguilar) 0 Urine, Voided 0 # Bowel Movements 0 Vital Signs: Vital Signs - 24 hr 01/15/18 01/15/18 01/15/18 15:00 18:00 18:45 Temperature 97.5 F L Pulse Rate 76 72 72 Respiratory 20 Rate Blood Pressure 166/69 H O2 Sat by Pulse 95 Oximetry 01/15/18 01/15/18 01/16/18 19:00 23:25 00:57 Temperature 97.7 F Pulse Rate 71 73 76 Respiratory 20 Rate Blood Pressure 146/61 137/79 O2 Sat by Pulse 98 100 Oximetry 01/16/18 01/16/18 01/16/18 04:00 07:56 09:37 Temperature 97.7 F Pulse Rate 64 66 Respiratory 18 Rate Blood Pressure 127/68 130/68 O2 Sat by Pulse 95 Oximetry - Physical Exam Abdominal Exam: Soft, Non-Tender, Non-Distended Back: No CVA Tenderness Genitalia: Without Inflammation - Male Phallus: Normal Scrotum: Normal - Plan Intake & Output: Yes Additional Information: IMP: improved re urinary retention. Renal failure, on dialysis. Lower ext infection, on Zyvox. Rec: obtain psa. monitor urine output. on tamsulosin. Discussed w pt and . YS - Date & Time of Note Date: 01/16/18 Time: 12:30
--- NOTE | 2018-01-16 15:44 | CP.PCM.PN ---
Subjective - Date & Time of Evaluation Date of Evaluation: 01/16/18 Time of Evaluation: 11:30 - Subjective Subjective: Podiatry progress note: Dr. Cavanaugh 72 y/o male patient seen at bedside this morning for left foot and ankle ulcerations. Pt is AAOx3 and not in acute distress. Patient seen with at bedside. Patient denies of acute overnight events. states that she saw a lot of blood coming from the dressing today. Denies F/C/N/V/CP/SOB. Patient denies any other pedal complains now. Objective - Vital Signs/Intake and Output Vital Signs (last 24 hours): Temp Pulse Resp BP Pulse Ox 97.7 F 66 18 130/68 95 01/16/18 07:56 01/16/18 07:56 01/16/18 07:56 01/16/18 09:37 01/16/18 07:56 Intake and Output: 01/16/18 01/16/18 06:59 18:59 Intake Total 540 Output Total 75 Balance 465 - Medications Medications: Current Medications Apixaban (Eliquis) 2.5 mg PO BID [facility] Last Admin: 01/11/18 22:33 Dose: 2.5 mg Calcium Acetate (Phoslo) 1,334 mg PO TID [facility] Last Admin: 01/16/18 13:53 Dose: 1,334 mg Glipizide (Glucotrol) 5 mg PO TID [facility] Last Admin: 01/16/18 13:50 Dose: 5 mg Linezolid (Zyvox 600mg/300ml D5w) 600 mg in 300 mls @ 200 mls/hr IVPB Q12H [facility] PRN Reason: Protocol Last Admin: 01/16/18 13:49 Dose: 200 mls/hr Insulin Aspart (Novolog) 0 unit SC ACHS [facility] PRN Reason: Protocol Last Admin: 01/16/18 12:58 Dose: 2 units Metoprolol Tartrate (Lopressor) 25 mg PO BID [facility] Last Admin: 01/16/18 09:37 Dose: 25 mg Rosuvastatin Calcium (Crestor) 10 mg PO HS [facility] Last Admin: 01/15/18 21:22 Dose: 10 mg Tamsulosin HCl (Flomax) 0.4 mg PO DAILY [facility] Last Admin: 01/16/18 09:32 Dose: 0.4 mg - Labs Labs: 01/13/18 07:35 01/13/18 07:35 PT 20.1 SECONDS (9.7-12.2) H 01/10/18 09:30 INR 1.8 01/10/18 09:30 APTT 39 SECONDS (21-34) H 01/10/18 09:30 - Constitutional Appears: Well, Non-toxic, No Acute Distress - Extremities Exam Additional comments: Left lower extremity focused examination: Vasc: DP/PT pulses palpable 2/4. Temperature gradient warm to cool from proximal to distal. Cap refill < 3 sec to all digits. No pedal edema noted. Neuro: Protective sensation slightly diminished. Derm: Open ulceration to lateral midfoot approx 4.2cm x 1.2cm x 0.2cm with mixed fibrogranular wound base 50:50 and macerated wound borders. minimal serous drainage, no malodor, no tunneling or undermining, no purulence, no fluctuance. Exposed bone noted to proximal aspect of wound bed, however, wound appears stable at this time. Additional circular ulceration noted to lateral malleolus, approx 2.6 cm in diameter with 80% granular and 20% fibrotic wound base with regular wound borders and no jackson wound erythema. No active drainage, no malodor, no tunneling or undermining, no purulence, no fluctuance. MSK: No pain to palpation of left lower extremity ulcerations. - Neurological Exam Neurological Exam: Alert, Awake, Oriented x3 - Psychiatric Exam Psychiatric exam: Normal Affect, Normal Mood Assessment and Plan - Assessment and Plan (Free Text) Assessment: 72 y/o male patient seen and evaluated at the bedside for left lower extremity ulcerations to foot and ankle Plan: Pt seen and evaluated at bedside Plan discussed in details with attending Dr. Cavanaugh Labs and vitals reviewed - afebrile, no leukocytosis Wounds to left lower extremity dressed with xeroform and DSD Wounds do not appear clinically infected at this time. Pt is stable from podiatry standpoint, will continue local wound care. No plans for surgical intervention Will continue to follow up patient while in house
--- NOTE | 2018-01-17 00:17 | CP.PCM.PN ---
Subjective - Date & Time of Evaluation Date of Evaluation: 01/16/18 Time of Evaluation: 19:00 - Subjective Subjective: Patient on Zyvox for a VRE UTI. Has no complaint of dizziness, weakness. Objective - Vital Signs/Intake and Output Vital Signs (last 24 hours): Temp Pulse Resp BP Pulse Ox 98.2 F 62 20 163/72 H 100 01/16/18 15:00 01/16/18 17:30 01/16/18 15:00 01/16/18 17:42 01/16/18 15:00 - Medications Medications: Current Medications Apixaban (Eliquis) 2.5 mg PO BID [facility] Last Admin: 01/11/18 22:33 Dose: 2.5 mg Calcium Acetate (Phoslo) 1,334 mg PO TID [facility] Last Admin: 01/16/18 17:44 Dose: 1,334 mg Glipizide (Glucotrol) 5 mg PO TID [facility] Last Admin: 01/16/18 17:42 Dose: 5 mg Linezolid (Zyvox 600mg/300ml D5w) 600 mg in 300 mls @ 200 mls/hr IVPB Q12H [facility] PRN Reason: Protocol Last Admin: 01/16/18 13:49 Dose: 200 mls/hr Insulin Aspart (Novolog) 0 unit SC ACHS [facility] PRN Reason: Protocol Last Admin: 01/16/18 21:45 Dose: Not Given Metoprolol Tartrate (Lopressor) 25 mg PO BID [facility] Last Admin: 01/16/18 17:42 Dose: 25 mg Rosuvastatin Calcium (Crestor) 10 mg PO HS [facility] Last Admin: 01/16/18 21:44 Dose: 10 mg Tamsulosin HCl (Flomax) 0.4 mg PO DAILY [facility] Last Admin: 01/16/18 09:32 Dose: 0.4 mg - Labs Labs: 01/13/18 07:35 01/13/18 07:35 PT 20.1 SECONDS (9.7-12.2) H 01/10/18 09:30 INR 1.8 01/10/18 09:30 APTT 39 SECONDS (21-34) H 01/10/18 09:30 - Constitutional Appears: No Acute Distress - Head Exam Head Exam: NORMAL INSPECTION - Eye Exam Eye Exam: Normal appearance Pupil Exam: NORMAL ACCOMODATION - ENT Exam ENT Exam: Normal Exam - Neck Exam Neck Exam: Normal Inspection - Respiratory Exam Respiratory Exam: Clear to Ausculation Bilateral - Cardiovascular Exam Cardiovascular Exam: Irregular Rhythm, Murmur - GI/Abdominal Exam GI & Abdominal Exam: Soft, Normal Bowel Sounds - Rectal Exam Rectal Exam: Deferred - Exam Exam: NORMAL INSPECTION - Extremities Exam Extremities Exam: Normal Inspection - Back Exam Back Exam: NORMAL INSPECTION - Neurological Exam Neurological Exam: Alert, Oriented x3 - Psychiatric Exam Psychiatric exam: Anxious - Skin Skin Exam: Normal Color Assessment and Plan (1) Muscle weakness Status: Resolved (2) Dizziness Status: Resolved (3) ESRD (end stage renal disease) on dialysis Status: Chronic (4) Non-insulin dependent type 2 diabetes mellitus Status: Chronic (5) Hematuria Status: Acute (6) Acute on chronic diastolic heart failure Status: Acute (7) CHF (congestive heart failure) Assessment & Plan: Due to fluid overload. To continue HD. Status: Acute (8) Vancomycin resistant enterococcus culture positive Assessment & Plan: VRE UTI on Zyvox. To repeat urine culture. Status: Acute
[2018-01-17] MEDS: Linezolid 600 mg in D5W 300 ml 600 MG/300 ML BAG IVPB SCH ×2 (02:21→14:47)
[2018-01-17] MEDS: (Novolog) Insulin Aspart, Recombinant 100 u/ml 10 ml vial SC SCH ×3 (08:23→21:27)
--- NOTE | 2018-01-17 10:56 | CP.PCM.PN ---
Subjective - Date & Time of Evaluation Date of Evaluation: 01/17/18 Time of Evaluation: 10:53 - Subjective Subjective: Seen at dialysis To UF 2500ml- tolerating so far On treatment for VRE UTI Less confused, still lethargic Objective - Vital Signs/Intake and Output Vital Signs (last 24 hours): Temp Pulse Resp BP Pulse Ox 97.3 F L 61 16 157/68 H 100 01/17/18 09:40 01/17/18 09:40 01/17/18 09:40 01/17/18 09:40 01/17/18 09:40 - Medications Medications: Current Medications Apixaban (Eliquis) 2.5 mg PO BID [facility] Last Admin: 01/11/18 22:33 Dose: 2.5 mg Calcium Acetate (Phoslo) 1,334 mg PO TID [facility] Last Admin: 01/16/18 17:44 Dose: 1,334 mg Glipizide (Glucotrol) 5 mg PO TID [facility] Last Admin: 01/17/18 09:03 Dose: 5 mg Linezolid (Zyvox 600mg/300ml D5w) 600 mg in 300 mls @ 200 mls/hr IVPB Q12H [facility] PRN Reason: Protocol Last Admin: 01/17/18 02:21 Dose: 200 mls/hr Insulin Aspart (Novolog) 0 unit SC ACHS [facility] PRN Reason: Protocol Last Admin: 01/17/18 08:23 Dose: 1 units Metoprolol Tartrate (Lopressor) 25 mg PO BID [facility] Last Admin: 01/16/18 17:42 Dose: 25 mg Rosuvastatin Calcium (Crestor) 10 mg PO HS [facility] Last Admin: 01/16/18 21:44 Dose: 10 mg Tamsulosin HCl (Flomax) 0.4 mg PO DAILY [facility] Last Admin: 01/17/18 09:03 Dose: 0.4 mg - Labs Labs: 01/13/18 07:35 01/13/18 07:35 PT 20.1 SECONDS (9.7-12.2) H 01/10/18 09:30 INR 1.8 01/10/18 09:30 APTT 39 SECONDS (21-34) H 01/10/18 09:30 - Constitutional Appears: No Acute Distress, Chronically Ill - Head Exam Head Exam: ATRAUMATIC, NORMAL INSPECTION - Eye Exam Eye Exam: EOMI, Normal appearance - Neck Exam Neck Exam: Normal Inspection. absent: Tenderness - Respiratory Exam Respiratory Exam: Clear to Ausculation Bilateral, NORMAL BREATHING PATTERN - Cardiovascular Exam Cardiovascular Exam: Irregular Rhythm, +S1 - GI/Abdominal Exam GI & Abdominal Exam: Soft. absent: Tenderness - Extremities Exam Extremities Exam: Normal Inspection. absent: Tenderness - Neurological Exam Neurological Exam: Awake, CN II-XII Intact - Skin Skin Exam: Dry, Warm Assessment and Plan (1) CHF (congestive heart failure) Status: Acute (2) Dizziness Status: Resolved (3) ESRD (end stage renal disease) on dialysis Status: Chronic (4) Atrial fibrillation Status: Acute (5) PVD (peripheral vascular disease) Status: Acute (6) Non-insulin dependent type 2 diabetes mellitus Status: Chronic - Assessment and Plan (Free Text) Plan: zyvox for UTI Adequate UF with HD, TTS schedule wound care
--- NOTE | 2018-01-17 11:51 | CP.PCM.PN ---
Subjective - Date & Time of Evaluation Date of Evaluation: 01/17/18 Time of Evaluation: 09:00 - Subjective Subjective: weak and lethargic will need total 14 days rx Objective - Vital Signs/Intake and Output Vital Signs (last 24 hours): Temp Pulse Resp BP Pulse Ox 97.3 F L 67 16 119/72 100 01/17/18 09:40 01/17/18 11:30 01/17/18 11:30 01/17/18 11:30 01/17/18 11:30 - Medications Medications: Current Medications Apixaban (Eliquis) 2.5 mg PO BID [facility] Last Admin: 01/11/18 22:33 Dose: 2.5 mg Calcium Acetate (Phoslo) 1,334 mg PO TID [facility] Last Admin: 01/16/18 17:44 Dose: 1,334 mg Glipizide (Glucotrol) 5 mg PO TID [facility] Last Admin: 01/17/18 09:03 Dose: 5 mg Linezolid (Zyvox 600mg/300ml D5w) 600 mg in 300 mls @ 200 mls/hr IVPB Q12H [facility] PRN Reason: Protocol Last Admin: 01/17/18 02:21 Dose: 200 mls/hr Insulin Aspart (Novolog) 0 unit SC ACHS [facility] PRN Reason: Protocol Last Admin: 01/17/18 08:23 Dose: 1 units Metoprolol Tartrate (Lopressor) 25 mg PO BID [facility] Last Admin: 01/16/18 17:42 Dose: 25 mg Rosuvastatin Calcium (Crestor) 10 mg PO HS [facility] Last Admin: 01/16/18 21:44 Dose: 10 mg Tamsulosin HCl (Flomax) 0.4 mg PO DAILY [facility] Last Admin: 01/17/18 09:03 Dose: 0.4 mg - Labs Labs: 01/13/18 07:35 01/13/18 07:35 PT 20.1 SECONDS (9.7-12.2) H 01/10/18 09:30 INR 1.8 01/10/18 09:30 APTT 39 SECONDS (21-34) H 01/10/18 09:30 - Constitutional Appears: Non-toxic, Chronically Ill - Head Exam Head Exam: NORMOCEPHALIC - Eye Exam Eye Exam: PERRL - ENT Exam ENT Exam: Mucous Membranes Dry - Neck Exam Neck Exam: absent: Lymphadenopathy Assessment and Plan (1) CHF (congestive heart failure) Status: Acute (2) Dizziness Status: Resolved (3) Hematuria Status: Acute (4) Muscle weakness Status: Resolved (5) ESRD (end stage renal disease) on dialysis Status: Chronic (6) Atrial fibrillation Status: Acute (7) Gangrene associated with type 2 diabetes mellitus Status: Acute (8) Infected ulcer of skin Status: Acute (9) PVD (peripheral vascular disease) Status: Acute (10) Non-insulin dependent type 2 diabetes mellitus Status: Chronic - Assessment and Plan (Free Text) Assessment: for total 14 days rx
--- NOTE | 2018-01-17 12:40 | CP.PCM.PN ---
Subjective - Date & Time of Evaluation Date of Evaluation: 01/17/18 Time of Evaluation: 12:39 - Subjective Subjective: Podiatry progress note: Dr. Cavanaugh 72 y/o male patient seen at bedside this morning for left foot and ankle ulcerations. Pt is AAOx3 and not in acute distress. Patient denies of acute overnight events. states that she saw a lot of blood coming from the dressing today. Denies F/C/N/V/CP/SOB. Patient denies any other pedal complains now. Objective - Vital Signs/Intake and Output Vital Signs (last 24 hours): Temp Pulse Resp BP Pulse Ox 97.3 F L 67 16 119/72 100 01/17/18 09:40 01/17/18 11:30 01/17/18 11:30 01/17/18 11:30 01/17/18 11:30 - Medications Medications: Current Medications Apixaban (Eliquis) 2.5 mg PO BID [facility] Last Admin: 01/11/18 22:33 Dose: 2.5 mg Calcium Acetate (Phoslo) 1,334 mg PO TID [facility] Last Admin: 01/16/18 17:44 Dose: 1,334 mg Glipizide (Glucotrol) 5 mg PO TID [facility] Last Admin: 01/17/18 09:03 Dose: 5 mg Linezolid (Zyvox 600mg/300ml D5w) 600 mg in 300 mls @ 200 mls/hr IVPB Q12H [facility] [place] PRN Reason: Protocol Last Admin: 01/17/18 02:21 Dose: 200 mls/hr Insulin Aspart (Novolog) 0 unit SC ACHS [facility] PRN Reason: Protocol Last Admin: 01/17/18 08:23 Dose: 1 units Metoprolol Tartrate (Lopressor) 25 mg PO BID [facility] [place] Last Admin: 01/16/18 17:42 Dose: 25 mg Rosuvastatin Calcium (Crestor) 10 mg PO HS [facility] Last Admin: 01/16/18 21:44 Dose: 10 mg Tamsulosin HCl (Flomax) 0.4 mg PO DAILY [facility] Last Admin: 01/17/18 09:03 Dose: 0.4 mg - Labs Labs: 01/13/18 07:35 01/13/18 07:35 PT 20.1 SECONDS (9.7-12.2) H 01/10/18 09:30 INR 1.8 01/10/18 09:30 APTT 39 SECONDS (21-34) H 01/10/18 09:30 - Constitutional Appears: Well, Non-toxic, No Acute Distress - Extremities Exam Additional comments: Left lower extremity focused examination: Vasc: DP/PT pulses palpable 2/4. Temperature gradient warm to cool from proximal to distal. Cap refill < 3 sec to all digits. No pedal edema noted. Neuro: Protective sensation slightly diminished. Derm: Open ulceration to lateral midfoot approx 4.2cm x 1.2cm x 0.2cm with mixed fibrogranular wound base 50:50 and macerated wound borders. minimal serous drainage, no malodor, no tunneling or undermining, no purulence, no fluctuance. Exposed bone noted to proximal aspect of wound bed, however, wound appears stable at this time. Additional circular ulceration noted to lateral malleolus, approx 2.6 cm in diameter with 80% granular and 20% fibrotic wound base with regular wound borders and no jackson wound erythema. No active drainage, no malodor, no tunneling or undermining, no purulence, no fluctuance. MSK: No pain to palpation of left lower extremity ulcerations. - Neurological Exam Neurological Exam: Alert, Awake, Oriented x3 - Psychiatric Exam Psychiatric exam: Normal Affect, Normal Mood Assessment and Plan - Assessment and Plan (Free Text) Assessment: 72 y/o male patient seen and evaluated at the bedside for left lower extremity ulcerations to foot and ankle Plan: Pt seen and evaluated at bedside with attending Dr. Cavanaugh Labs and vitals reviewed - afebrile, no leukocytosis Wounds to left lower extremity dressed with xeroform and DSD Wounds do not appear clinically infected at this time. Pt is stable from podiatry standpoint, will continue local wound care. No plans for surgical intervention Will continue to follow up patient while in house
--- NOTE | 2018-01-17 15:44 | CP.PCM.PN ---
Subjective - Date & Time of Evaluation Date of Evaluation: 01/17/18 Time of Evaluation: 15:37 - Subjective Subjective: DISCUSSED WITH DR. GOTTLIEB ABX DURATION IN PREPARATION FOR D/C. PER SW, THE PT HAS NO MORE JOY DAYS LEFT. I NOTIFIED DR. GOTTLIEB OF THIS AND PER HIM OK TO SWITCH TO ZYVOX UPON D/C FOR 10 DAYS Q12 HOURS. PENDING REPEAT URINE CX THAT WAS ORDERED THIS MORNING. NO FURTHER ORDERS. Objective - Vital Signs/Intake and Output Vital Signs (last 24 hours): Temp Pulse Resp BP Pulse Ox 97.3 F L 75 16 125/61 100 01/17/18 09:40 01/17/18 13:10 01/17/18 13:10 01/17/18 15:11 01/17/18 13:10 - Medications Medications: Current Medications Apixaban (Eliquis) 2.5 mg PO BID [facility] Last Admin: 01/11/18 22:33 Dose: 2.5 mg Calcium Acetate (Phoslo) 1,334 mg PO TID [facility] Last Admin: 01/17/18 15:13 Dose: 1,334 mg Glipizide (Glucotrol) 5 mg PO TID [facility] Last Admin: 01/17/18 15:11 Dose: 5 mg Linezolid (Zyvox 600mg/300ml D5w) 600 mg in 300 mls @ 200 mls/hr IVPB Q12H [facility] PRN Reason: Protocol Last Admin: 01/17/18 14:47 Dose: 200 mls/hr Insulin Aspart (Novolog) 0 unit SC ACHS DON PRN Reason: Protocol Last Admin: 01/17/18 08:23 Dose: 1 units Metoprolol Tartrate (Lopressor) 25 mg PO BID [facility] Last Admin: 01/17/18 15:11 Dose: 25 mg Rosuvastatin Calcium (Crestor) 10 mg PO HS [facility] Last Admin: 01/16/18 21:44 Dose: 10 mg Tamsulosin HCl (Flomax) 0.4 mg PO DAILY [facility] Last Admin: 01/17/18 09:03 Dose: 0.4 mg - Labs Labs: 01/13/18 07:35 01/13/18 07:35 PT 20.1 SECONDS (9.7-12.2) H 01/10/18 09:30 INR 1.8 01/10/18 09:30 APTT 39 SECONDS (21-34) H 01/10/18 09:30
[2018-01-18] MEDS: Linezolid 600 mg in D5W 300 ml 600 MG/300 ML BAG IVPB SCH (02:44)
[2018-01-18] MEDS: (Novolog) Insulin Aspart, Recombinant 100 u/ml 10 ml vial SC SCH ×5 (07:42→21:27)
--- NOTE | 2018-01-18 08:28 | CP.PCM.PN ---
Subjective - Date & Time of Evaluation Date of Evaluation: 01/18/18 Time of Evaluation: 08:26 - Subjective Subjective: More alert now stable HD on 01/17 remains on zyvox for VRE UTI outpt plans for zyvox noted LE wound stable Objective - Vital Signs/Intake and Output Vital Signs (last 24 hours): Temp Pulse Resp BP Pulse Ox 97.3 F L 68 20 105/55 L 95 01/18/18 08:14 01/18/18 08:14 01/18/18 08:14 01/18/18 08:14 01/18/18 08:14 Intake and Output: 01/18/18 01/18/18 06:59 18:59 Intake Total 300 Balance 300 - Medications Medications: Current Medications Apixaban (Eliquis) 2.5 mg PO BID [facility] Last Admin: 01/11/18 22:33 Dose: 2.5 mg Calcium Acetate (Phoslo) 1,334 mg PO TID [facility] Last Admin: 01/17/18 18:08 Dose: 1,334 mg Glipizide (Glucotrol) 5 mg PO TID [facility] Last Admin: 01/17/18 18:08 Dose: 5 mg Linezolid (Zyvox 600mg/300ml D5w) 600 mg in 300 mls @ 200 mls/hr IVPB Q12H [facility] PRN Reason: Protocol Last Admin: 01/18/18 02:44 Dose: 200 mls/hr Insulin Aspart (Novolog) 0 unit SC ACHS [facility] PRN Reason: Protocol Last Admin: 01/18/18 08:12 Dose: 1 units Metoprolol Tartrate (Lopressor) 25 mg PO BID [facility] Last Admin: 01/17/18 18:08 Dose: 25 mg Rosuvastatin Calcium (Crestor) 10 mg PO HS [facility] Last Admin: 01/17/18 21:30 Dose: 10 mg Tamsulosin HCl (Flomax) 0.4 mg PO DAILY [facility] Last Admin: 01/17/18 09:03 Dose: 0.4 mg - Labs Labs: 01/13/18 07:35 01/13/18 07:35 PT 20.1 SECONDS (9.7-12.2) H 01/10/18 09:30 INR 1.8 01/10/18 09:30 APTT 39 SECONDS (21-34) H 01/10/18 09:30 - Constitutional Appears: No Acute Distress, Chronically Ill - Head Exam Head Exam: ATRAUMATIC, NORMAL INSPECTION - Eye Exam Eye Exam: EOMI, Normal appearance - ENT Exam ENT Exam: Normal Oropharynx - Neck Exam Neck Exam: Normal Inspection. absent: Tenderness - Respiratory Exam Respiratory Exam: Clear to Ausculation Bilateral, NORMAL BREATHING PATTERN - Cardiovascular Exam Cardiovascular Exam: Irregular Rhythm, +S1 - GI/Abdominal Exam GI & Abdominal Exam: Soft. absent: Tenderness - Extremities Exam Extremities Exam: Normal Inspection, Tenderness - Neurological Exam Neurological Exam: Awake, CN II-XII Intact - Skin Skin Exam: Dry, Warm Assessment and Plan (1) CHF (congestive heart failure) Status: Acute (2) Dizziness Status: Resolved (3) ESRD (end stage renal disease) on dialysis Status: Chronic (4) Atrial fibrillation Status: Acute (5) PVD (peripheral vascular disease) Status: Acute (6) Non-insulin dependent type 2 diabetes mellitus Status: Chronic - Assessment and Plan (Free Text) Plan: Dialysis TTS IV zyvox wound care
--- NOTE | 2018-01-18 11:21 | CP.PCM.PN ---
Subjective - Date & Time of Evaluation Date of Evaluation: 01/18/18 Time of Evaluation: 11:19 - Subjective Subjective: Podiatry progress note: Dr. Cavanaugh 72 y/o male patient seen at bedside this morning for left foot and ankle ulcerations. Pt is AAOx3 and not in acute distress. Patient denies of acute overnight events. Denies F/C/N/V/CP/SOB. Patient denies any other pedal complains now. Objective - Vital Signs/Intake and Output Vital Signs (last 24 hours): Temp Pulse Resp BP Pulse Ox 97.3 F L 68 20 130/67 95 01/18/18 08:14 01/18/18 08:14 01/18/18 08:14 01/18/18 10:12 01/18/18 08:14 Intake and Output: 01/18/18 01/18/18 06:59 18:59 Intake Total 300 Balance 300 - Medications Medications: Current Medications Apixaban (Eliquis) 2.5 mg PO BID [facility] Last Admin: 01/11/18 22:33 Dose: 2.5 mg Calcium Acetate (Phoslo) 1,334 mg PO TID [facility] Last Admin: 01/18/18 10:10 Dose: 1,334 mg Glipizide (Glucotrol) 5 mg PO TID [facility] Last Admin: 01/18/18 10:10 Dose: 5 mg Insulin Aspart (Novolog) 0 unit SC ACHS [facility] PRN Reason: Protocol Last Admin: 01/18/18 08:12 Dose: 1 units Linezolid (Zyvox) 600 mg PO Q12H [facility] Metoprolol Tartrate (Lopressor) 25 mg PO BID [facility] Last Admin: 01/18/18 10:12 Dose: 25 mg Rosuvastatin Calcium (Crestor) 10 mg PO HS [facility] Last Admin: 01/17/18 21:30 Dose: 10 mg Tamsulosin HCl (Flomax) 0.4 mg PO DAILY [facility] Last Admin: 01/18/18 10:11 Dose: 0.4 mg - Labs Labs: 01/13/18 07:35 01/13/18 07:35 PT 20.1 SECONDS (9.7-12.2) H 01/10/18 09:30 INR 1.8 01/10/18 09:30 APTT 39 SECONDS (21-34) H 01/10/18 09:30 - Constitutional Appears: Well, Non-toxic, No Acute Distress - Extremities Exam Additional comments: Left lower extremity focused examination: Vasc: DP/PT pulses palpable 2/4. Temperature gradient warm to cool from proximal to distal. Cap refill < 3 sec to all digits. No pedal edema noted. Neuro: Protective sensation slightly diminished. Derm: Open ulceration to lateral midfoot approx 4.2cm x 1.2cm x 0.2cm with mixed fibrogranular wound base 50:50 and macerated wound borders. minimal serous drainage, no malodor, no tunneling or undermining, no purulence, no fluctuance. Exposed bone noted to proximal aspect of wound bed, however, wound appears stable at this time. Additional circular ulceration noted to lateral malleolus, approx 2.6 cm in diameter with 80% granular and 20% fibrotic wound base with regular wound borders and no jackson wound erythema. No active drainage, no malodor, no tunneling or undermining, no purulence, no fluctuance. MSK: No pain to palpation of left lower extremity ulcerations. - Neurological Exam Neurological Exam: Alert, Awake, Oriented x3 - Psychiatric Exam Psychiatric exam: Normal Affect, Normal Mood Assessment and Plan - Assessment and Plan (Free Text) Assessment: 72 y/o male patient seen and evaluated at the bedside for left lower extremity ulcerations to foot and ankle Plan: Pt seen and evaluated at bedside Discussed plan with attending Dr. Cavanaugh Labs and vitals reviewed - afebrile, no leukocytosis Wounds to left lower extremity dressed with betadine and DSD Wounds do not appear clinically infected at this time. Pt is stable from podiatry standpoint, will continue local wound care. No plans for surgical intervention Will continue to follow up patient while in house
--- NOTE | 2018-01-18 18:09 | CP.PCM.PN ---
Subjective - Date & Time of Evaluation Date of Evaluation: 01/18/18 Time of Evaluation: 09:00 - Subjective Subjective: afeb in nad denies abd pain Objective - Vital Signs/Intake and Output Vital Signs (last 24 hours): Temp Pulse Resp BP Pulse Ox 97.3 F L 68 20 113/64 95 01/18/18 08:14 01/18/18 08:14 01/18/18 08:14 01/18/18 18:03 01/18/18 08:14 Intake and Output: 01/18/18 01/18/18 06:59 18:59 Intake Total 300 Balance 300 - Medications Medications: Current Medications Apixaban (Eliquis) 2.5 mg PO BID [facility] Last Admin: 01/11/18 22:33 Dose: 2.5 mg Calcium Acetate (Phoslo) 1,334 mg PO TID [facility] Last Admin: 01/18/18 18:03 Dose: 1,334 mg Glipizide (Glucotrol) 5 mg PO TID [facility] Last Admin: 01/18/18 18:03 Dose: 5 mg Insulin Aspart (Novolog) 0 unit SC [facility] PRN Reason: Protocol Last Admin: 01/18/18 17:30 Dose: 2 units Linezolid (Zyvox) 600 mg PO Q12H [facility] Last Admin: 01/18/18 13:51 Dose: 600 mg Metoprolol Tartrate (Lopressor) 25 mg PO BID [facility] Last Admin: 01/18/18 18:03 Dose: 25 mg Rosuvastatin Calcium (Crestor) 10 mg PO HS [facility] Last Admin: 01/17/18 21:30 Dose: 10 mg Tamsulosin HCl (Flomax) 0.4 mg PO DAILY [facility] Last Admin: 01/18/18 10:11 Dose: 0.4 mg - Labs Labs: 01/13/18 07:35 01/13/18 07:35 PT 20.1 SECONDS (9.7-12.2) H 01/10/18 09:30 INR 1.8 01/10/18 09:30 APTT 39 SECONDS (21-34) H 01/10/18 09:30 - Constitutional Appears: Non-toxic, Chronically Ill - Head Exam Head Exam: NORMOCEPHALIC - Eye Exam Eye Exam: PERRL - ENT Exam ENT Exam: Mucous Membranes Dry - Neck Exam Neck Exam: absent: Thyromegaly - Respiratory Exam Respiratory Exam: Decreased Breath Sounds - Cardiovascular Exam Cardiovascular Exam: REGULAR RHYTHM - GI/Abdominal Exam GI & Abdominal Exam: Distended, Soft - Rectal Exam Rectal Exam: Deferred - Exam Exam: NORMAL INSPECTION - Extremities Exam Extremities Exam: absent: Pedal Edema - Back Exam Back Exam: absent: CVA tenderness (L), CVA tenderness (R) Additional comments: Left lower extremity focused examination: Vasc: DP/PT pulses palpable 2/4. Temperature gradient warm to cool from proximal to distal. Cap refill < 3 sec to all digits. No pedal edema noted. Neuro: Protective sensation slightly diminished. Derm: Open ulceration to lateral midfoot approx 4.2cm x 1.2cm x 0.2cm with mixed fibrogranular wound base 50:50 and macerated wound borders. minimal serous drainage, no malodor, no tunneling or undermining, no purulence, no fluctuance. Exposed bone noted to proximal aspect of wound bed, however, wound appears stable at this time. Additional circular ulceration noted to lateral malleolus, approx 2.6 cm in diameter with 80% granular and 20% fibrotic wound base with regular wound borders and no jackson wound erythema. No active drainage, no malodor, no tunneling or undermining, no purulence, no fluctuance. MSK: No pain to palpation of left lower extremity ulcerations. - Neurological Exam Neurological Exam: Alert, Awake, Oriented x3 - Psychiatric Exam Psychiatric exam: Normal Mood - Skin Skin Exam: Dry Assessment and Plan (1) CHF (congestive heart failure) Status: Acute (2) Dizziness Status: Resolved (3) Hematuria Status: Acute (4) Muscle weakness Status: Resolved (5) ESRD (end stage renal disease) on dialysis Status: Chronic (6) Atrial fibrillation Status: Acute (7) Gangrene associated with type 2 diabetes mellitus Status: Acute (8) Infected ulcer of skin Status: Acute (9) PVD (peripheral vascular disease) Status: Acute (10) Non-insulin dependent type 2 diabetes mellitus Status: Chronic - Assessment and Plan (Free Text) Plan: cont iv rx for VRE for 14 days
--- NOTE | 2018-01-18 23:59 | CP.PCM.PN ---
Subjective - Date & Time of Evaluation Date of Evaluation: 01/18/18 Time of Evaluation: 19:30 - Subjective Subjective: Patient has no complaint. Zyvox switched to PO. Awaiting urine culture for possible discharge home. Objective - Vital Signs/Intake and Output Vital Signs (last 24 hours): Temp Pulse Resp BP Pulse Ox 96.0 F L 65 18 113/64 96 01/18/18 15:19 01/18/18 15:19 01/18/18 15:19 01/18/18 18:03 01/18/18 15:19 - Medications Medications: Current Medications Apixaban (Eliquis) 2.5 mg PO BID [facility] Last Admin: 01/11/18 22:33 Dose: 2.5 mg Calcium Acetate (Phoslo) 1,334 mg PO TID [facility] Last Admin: 01/18/18 18:03 Dose: 1,334 mg Glipizide (Glucotrol) 5 mg PO TID [facility] Last Admin: 01/18/18 18:03 Dose: 5 mg Insulin Aspart (Novolog) 0 unit SC [facility] PRN Reason: Protocol Last Admin: 01/18/18 21:27 Dose: Not Given Linezolid (Zyvox) 600 mg PO Q12H [facility] Last Admin: 01/18/18 13:51 Dose: 600 mg Metoprolol Tartrate (Lopressor) 25 mg PO BID [facility] Last Admin: 01/18/18 18:03 Dose: 25 mg Rosuvastatin Calcium (Crestor) 10 mg PO HS [facility] Last Admin: 01/18/18 21:56 Dose: 10 mg Tamsulosin HCl (Flomax) 0.4 mg PO DAILY [facility] Last Admin: 01/18/18 10:11 Dose: 0.4 mg - Labs Labs: 01/13/18 07:35 01/13/18 07:35 PT 20.1 SECONDS (9.7-12.2) H 01/10/18 09:30 INR 1.8 01/10/18 09:30 APTT 39 SECONDS (21-34) H 01/10/18 09:30 - Constitutional Appears: No Acute Distress, Chronically Ill - Head Exam Head Exam: NORMAL INSPECTION - Eye Exam Eye Exam: Normal appearance - ENT Exam ENT Exam: Normal Exam - Neck Exam Neck Exam: Normal Inspection - Respiratory Exam Respiratory Exam: Clear to Ausculation Bilateral - Cardiovascular Exam Cardiovascular Exam: Irregular Rhythm, Murmur - GI/Abdominal Exam GI & Abdominal Exam: Soft, Normal Bowel Sounds - Rectal Exam Rectal Exam: Deferred - Extremities Exam Extremities Exam: Normal Inspection - Back Exam Back Exam: NORMAL INSPECTION - Neurological Exam Neurological Exam: Alert, Awake, Oriented x3 - Psychiatric Exam Psychiatric exam: Anxious Assessment and Plan (1) Muscle weakness Status: Resolved (2) Dizziness Status: Resolved (3) ESRD (end stage renal disease) on dialysis Status: Chronic (4) Non-insulin dependent type 2 diabetes mellitus Status: Chronic (5) Hematuria Status: Resolved (6) Acute on chronic diastolic heart failure Status: Resolved (7) CHF (congestive heart failure) Status: Acute (8) Vancomycin resistant enterococcus culture positive Assessment & Plan: On Zyvox PO. Status: Acute
[2018-01-19] MEDS: (Novolog) Insulin Aspart, Recombinant 100 u/ml 10 ml vial SC SCH ×3 (07:30→17:10)
--- NOTE | 2018-01-19 08:20 | CP.PCM.PN ---
Subjective - Date & Time of Evaluation Date of Evaluation: 01/19/18 Time of Evaluation: 08:18 - Subjective Subjective: Podiatry progress note: Dr. Cavanaugh 72 y/o male patient seen at bedside this morning for left foot and ankle ulcerations. Pt is AAOx3 and not in acute distress. Patient denies of acute overnight events. Denies F/C/N/V/CP/SOB. Patient denies any other pedal complains now. Objective - Vital Signs/Intake and Output Vital Signs (last 24 hours): Temp Pulse Resp BP Pulse Ox 97.8 F 62 20 95/58 L 95 01/18/18 23:25 01/18/18 23:25 01/18/18 23:25 01/18/18 23:25 01/18/18 23:25 Intake and Output: 01/19/18 01/19/18 06:59 18:59 Intake Total 250 Balance 250 - Medications Medications: Current Medications Apixaban (Eliquis) 2.5 mg PO BID [facility] Last Admin: 01/11/18 22:33 Dose: 2.5 mg Calcium Acetate (Phoslo) 1,334 mg PO TID [facility] Last Admin: 01/18/18 18:03 Dose: 1,334 mg Glipizide (Glucotrol) 5 mg PO TID [facility] Last Admin: 01/18/18 18:03 Dose: 5 mg Insulin Aspart (Novolog) 0 unit SC ACHS [facility] PRN Reason: Protocol Last Admin: 01/18/18 21:27 Dose: Not Given Linezolid (Zyvox) 600 mg PO Q12H [facility] Last Admin: 01/19/18 03:38 Dose: 600 mg Metoprolol Tartrate (Lopressor) 25 mg PO BID [facility] Last Admin: 01/18/18 18:03 Dose: 25 mg Rosuvastatin Calcium (Crestor) 10 mg PO HS [facility] Last Admin: 01/18/18 21:56 Dose: 10 mg Tamsulosin HCl (Flomax) 0.4 mg PO DAILY [facility] Last Admin: 01/18/18 10:11 Dose: 0.4 mg - Labs Labs: 01/13/18 07:35 01/13/18 07:35 PT 20.1 SECONDS (9.7-12.2) H 01/10/18 09:30 INR 1.8 01/10/18 09:30 APTT 39 SECONDS (21-34) H 01/10/18 09:30 - Constitutional Appears: Well, Non-toxic, No Acute Distress - Extremities Exam Additional comments: Left lower extremity focused examination: Vasc: DP/PT pulses palpable 2/4. Temperature gradient warm to cool from proximal to distal. Cap refill < 3 sec to all digits. No pedal edema noted. Neuro: Protective sensation slightly diminished. Derm: Open ulceration to lateral midfoot approx 4.2cm x 1.2cm x 0.2cm with mixed fibrogranular wound base 50:50 and macerated wound borders. minimal serous drainage, no malodor, no tunneling or undermining, no purulence, no fluctuance. Exposed bone noted to proximal aspect of wound bed, however, wound appears stable at this time. Additional circular ulceration noted to lateral malleolus, approx 2.6 cm in diameter with 80% granular and 20% fibrotic wound base with regular wound borders and no jackson wound erythema. No active drainage, no malodor, no tunneling or undermining, no purulence, no fluctuance. MSK: No pain to palpation of left lower extremity ulcerations. - Neurological Exam Neurological Exam: Alert, Awake, Oriented x3 - Psychiatric Exam Psychiatric exam: Normal Affect, Normal Mood Assessment and Plan - Assessment and Plan (Free Text) Assessment: 72 y/o male patient seen and evaluated at the bedside for left lower extremity ulcerations to foot and ankle Plan: Pt seen and evaluated at bedside Discussed plan with attending Dr. Cavanaugh Labs and vitals reviewed - afebrile, no leukocytosis Wounds to left lower extremity dressed with betadine and DSD Wounds do not appear clinically infected at this time. Pt is stable from podiatry standpoint, will continue local wound care. No plans for surgical intervention Will continue to follow up patient while in house
--- NOTE | 2018-01-19 08:50 | CP.PCM.PN ---
Subjective - Date & Time of Evaluation Date of Evaluation: 01/19/18 Time of Evaluation: 08:49 - Subjective Subjective: appears better Afebrile; no hematuria zyvox changed to po For dialysis now Objective - Vital Signs/Intake and Output Vital Signs (last 24 hours): Temp Pulse Resp BP Pulse Ox 97.8 F 62 20 95/58 L 95 01/18/18 23:25 01/18/18 23:25 01/18/18 23:25 01/18/18 23:25 01/18/18 23:25 Intake and Output: 01/19/18 01/19/18 06:59 18:59 Intake Total 250 Balance 250 - Medications Medications: Current Medications Apixaban (Eliquis) 2.5 mg PO BID [facility] Last Admin: 01/11/18 22:33 Dose: 2.5 mg Calcium Acetate (Phoslo) 1,334 mg PO TID [facility] Last Admin: 01/18/18 18:03 Dose: 1,334 mg Glipizide (Glucotrol) 5 mg PO TID [facility] Last Admin: 01/18/18 18:03 Dose: 5 mg Insulin Aspart (Novolog) 0 unit SC [facility] PRN Reason: Protocol Last Admin: 01/19/18 07:30 Dose: Not Given Linezolid (Zyvox) 600 mg PO Q12H [facility] Last Admin: 01/19/18 03:38 Dose: 600 mg Metoprolol Tartrate (Lopressor) 25 mg PO BID [facility] Last Admin: 01/18/18 18:03 Dose: 25 mg Rosuvastatin Calcium (Crestor) 10 mg PO HS [facility] Last Admin: 01/18/18 21:56 Dose: 10 mg Tamsulosin HCl (Flomax) 0.4 mg PO DAILY [facility] Last Admin: 01/18/18 10:11 Dose: 0.4 mg - Labs Labs: 01/13/18 07:35 01/13/18 07:35 PT 20.1 SECONDS (9.7-12.2) H 01/10/18 09:30 INR 1.8 01/10/18 09:30 APTT 39 SECONDS (21-34) H 01/10/18 09:30 - Constitutional Appears: No Acute Distress, Chronically Ill - Head Exam Head Exam: ATRAUMATIC, NORMAL INSPECTION - Eye Exam Eye Exam: EOMI, Normal appearance - Neck Exam Neck Exam: Normal Inspection. absent: Tenderness - Respiratory Exam Respiratory Exam: Clear to Ausculation Bilateral, NORMAL BREATHING PATTERN - Cardiovascular Exam Cardiovascular Exam: REGULAR RHYTHM, +S1 - GI/Abdominal Exam GI & Abdominal Exam: Soft. absent: Tenderness - Extremities Exam Extremities Exam: Normal Inspection. absent: Tenderness - Neurological Exam Neurological Exam: Alert, CN II-XII Intact - Skin Skin Exam: Dry, Warm Assessment and Plan (1) CHF (congestive heart failure) Status: Acute (2) Dizziness Status: Resolved (3) ESRD (end stage renal disease) on dialysis Status: Chronic (4) Atrial fibrillation Status: Acute (5) PVD (peripheral vascular disease) Status: Acute (6) Non-insulin dependent type 2 diabetes mellitus Status: Chronic - Assessment and Plan (Free Text) Plan: Dialysis now po zyvox wound monitoring
[2018-01-19 10:08] LABS: BASO # 0.1 K/uL (0.0-0.2); BASO % 1.4 % (0.0-2.0); NEUT # 3.4 K/uL (1.8-7.0); WHITE BLOOD COUNT 4.4 K/uL (4.8-10.8)
[2018-01-19 10:18] LABS: EOS # 0.2 K/uL (0.0-0.7); EOS % 3.7 % (0.0-4.0); HEMOGLOBIN 10.6 g/dL (12.0-18.0); LYMPH # 0.4 K/uL (1.0-4.3); LYMPH % 9.6 % (20.0-40.0); MEAN CELL VOLUME 97.9 fL (80.0-94.0); MEAN CORPUSCULAR HEMOGLOBIN 32.3 pg (27.0-31.0); MEAN PLATELET VOLUME 10.4 fL (7.2-11.7); MONO # 0.4 K/uL (0.0-0.8); MONO % 9.6 % (0.0-10.0); NEUT % 75.7 % (50.0-75.0); PLATELET COUNT 130 K/uL (130-400); RBC 3.27 Mil/uL (4.40-5.90); RED CELL DISTRIBUTION WIDTH 15.4 % (11.5-14.5)
[2018-01-19 10:25] LABS: ALB/GLOB RATIO 0.8 (1.0-2.1); ALBUMIN 3.2 g/dL (3.5-5.0); CALCIUM 7.8 mg/dl (8.6-10.4)
[2018-01-19 10:59] LABS: BANDS 1 % (0-2); EOSINOPHIL 5 % (0-4); LYMPHOCYTE 10 % (20-40); MONOCYTE 7 % (0-10); NEUTROPHIL 76 % (50-75); PLATELET ESTIMATE NORMAL (NORMAL); REACTIVE LYMPHOCYTES 1 % (0-0); TOTAL CELLS COUNTED 100
[2018-01-19 11:00] LABS: ANISOCYTOSIS SLIGHT; TARGET CELLS SLIGHT
[2018-01-19 11:01] LABS: OVALOCYTES SLIGHT
--- NOTE | 2018-01-19 15:33 | CP.PCM.PN ---
Subjective - Date & Time of Evaluation Date of Evaluation: 01/19/18 Time of Evaluation: 15:00 - Subjective Subjective: Patient seen after HD , denies any chest pain, sob, abdominal pain, N/V , c/o weakness a febrile labs and VSS today reviewed No hematuria reported Objective - Vital Signs/Intake and Output Vital Signs (last 24 hours): Temp Pulse Resp BP Pulse Ox 97.4 F L 83 17 138/68 100 01/19/18 12:25 01/19/18 12:25 01/19/18 12:25 01/19/18 12:25 01/19/18 12:25 Intake and Output: 01/19/18 01/19/18 06:59 18:59 Intake Total 250 Balance 250 - Medications Medications: Current Medications Apixaban (Eliquis) 2.5 mg PO BID [facility] Last Admin: 01/11/18 22:33 Dose: 2.5 mg Calcium Acetate (Phoslo) 1,334 mg PO TID [facility] Last Admin: 01/19/18 13:25 Dose: 1,334 mg Glipizide (Glucotrol) 5 mg PO TID [facility] Last Admin: 01/19/18 13:25 Dose: 5 mg Insulin Aspart (Novolog) 0 unit SC [facility] PRN Reason: Protocol Last Admin: 01/19/18 13:21 Dose: Not Given Linezolid (Zyvox) 600 mg PO Q12H [facility] Last Admin: 01/19/18 13:25 Dose: 600 mg Metoprolol Tartrate (Lopressor) 25 mg PO BID [facility] Last Admin: 01/19/18 14:51 Dose: Not Given Rosuvastatin Calcium (Crestor) 10 mg PO HS [facility] Last Admin: 01/18/18 21:56 Dose: 10 mg Tamsulosin HCl (Flomax) 0.4 mg PO DAILY [facility] Last Admin: 01/19/18 13:25 Dose: 0.4 mg - Labs Labs: 01/19/18 10:05 01/19/18 10:05 PT 20.1 SECONDS (9.7-12.2) H 01/10/18 09:30 INR 1.8 01/10/18 09:30 APTT 39 SECONDS (21-34) H 01/10/18 09:30 Assessment and Plan - Assessment and Plan (Free Text) Assessment: A/P 72 yo male w/PMHx of ESRD on HD Tue, Th, Sat, Afib, HTN, nyperlipidemia, DM, admitted for weakness, urine culture - + for VRE and started on antibiotics repeat urine culture- negative rods - colony count10,00-50,000 D/w Dr. Bailey total of 14 days of zyvox , pt received 4 days of zyvox already , continue 10 more days of zyvox D/W Dr. Watkins cleared fro discharge home today and f/u with Dr. Watkins office on tuesday , resume all home medications Discharge plan discussed with patient and family at bed side patient instructed to returns to ED if he develops any blood urine or any other concerning symptoms VNA service arranged for home care/ home PT/ WOUND CARE
--- NOTE | 2018-01-19 15:34 | PCM.HF ---
Heart Failure Core Measure - Heart Failure Ejection Fraction: 40 % or Greater RONALD Inhibitor Prescribed: No Contraindication/Reason for not providing: ef>45/ ESRD Beta-Nick Prescribed: Metoprolol Succinate Angiotensin II Receptor Nick Prescribed: No Contraindication/Reason for not providing: ef>45 AnticoagulationTherapy for Atrial Fibrillation/Atrialflutter: Yes Aldosterone Antagonist Prescribed: No Contraindication/Reason for not providing: ef.45 Hydralazine Nitrate Prescribed: No Contraindication/Reason for not providing: ef>45 Implantable Cardioverter Defibrillator Therapy: No Contraindication/Reason for not providing: ef>45 Cardiac Resynchronization Therapy Prescribed: No Contraindication/Reason for not providing: ef>45 - Follow up Will be discharged to: Home Follow Up Date (must be within 7 days from discharge): 01/23/18 Follow Up Time: 09:00
[2018-01-19 15:53] VITALS: PULSE 76; RESP 20; TEMP 97.6; O2SAT 97
[2018-01-19 17:11] VITALS: BP 126/58
== END 2018-01-19 21:30 | disposition home or self-care (01) | DRG 291 ==
LOC: C.ER 08:43 → C.9E 11:29 → C.6T 14:09
PROVIDERS: ADMIT Internal Medicine Cardiovascular Disease; ATTEND Internal Medicine Cardiovascular Disease
PROC: 5A1D70Z Performance of Urinary Filtration, Intermittent, Less than 6 Hours Per Day (ICD-10-PCS; principal; 2018-01-10)
DX: I13.2 Hypertensive heart and chronic kidney disease with heart failure and with stage 5 chronic kidney disease, or end stage renal disease (principal); N18.6 End stage renal disease; I50.33 Acute on chronic diastolic (congestive) heart failure; E11.52 Type 2 diabetes mellitus with diabetic peripheral angiopathy with gangrene; N39.0 Urinary tract infection, site not specified; I48.92 Unspecified atrial flutter; L97.429 Non-pressure chronic ulcer of left heel and midfoot with unspecified severity; E11.22 Type 2 diabetes mellitus with diabetic chronic kidney disease; R26.81 Unsteadiness on feet; M62.81 Muscle weakness (generalized); R31.9 Hematuria, unspecified; I48.91 Unspecified atrial fibrillation; E78.00 Pure hypercholesterolemia, unspecified; E11.621 Type 2 diabetes mellitus with foot ulcer; N40.1 Benign prostatic hyperplasia with lower urinary tract symptoms; R33.8 Other retention of urine; K56.41 Fecal impaction; Z79.4 Long term (current) use of insulin

== ENCOUNTER 2018-02-18 09:06 | Emergency (ER) | payer MEDICARE, BC ==
[2018-02-18 09:24] VITALS: O2SAT 94
--- NOTE | 2018-02-18 09:30 | C.PDOC ---
History Of Present Illness 73 year old male brought in by dialysis transport. Patient was confused on arrival to regularly scheduled dialysis. Patient claims they did CPR en route to dialysis and rerouted to ED. Denies fever, chills, cough, shortness of breath, nausea, vomiting, weakness, numbness. Time Seen by Provider: 02/18/18 09:27 Chief Complaint (Nursing): Medical Clearance History Per: Patient History/Exam Limitations: no limitations Onset/Duration Of Symptoms: Hrs Current Symptoms Are (Timing): Still Present Past Medical History Reviewed: Historical Data, Nursing Documentation, Vital Signs Vital Signs: Last Vital Signs Temp Pulse 71 02/18/18 09:13 Resp 12 02/18/18 09:13 BP 134/52 L 02/18/18 09:13 Pulse Ox 94 L 02/18/18 09:13 - Medical History PMH: Cardia Arrhythmia (A FIB/FLUTTER), CHF, Diabetes, HTN, Hypercholesterolemia, Chronic Kidney Disease Denies: CVA Surgical History: No Surg Hx - [facility] Procedures (01/10/18) EXCISION OF LEFT FOOT SKIN, EXTERNAL APPROACH (08/22/17) EXCISION OF LEFT METATARSAL, OPEN APPROACH, DIAGNOSTIC (08/22/17) REPLACE L FOOT SKIN W AUTOL SUB, FULL THICK, 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 Constitutional: Negative for: Fever, Chills Cardiovascular: Negative for: Chest Pain Respiratory: Negative for: Cough, Shortness of Breath Gastrointestinal: Negative for: Nausea, Vomiting, Diarrhea Neurological: Negative for: Weakness, Numbness Physical Exam - Physical Exam Appears: Non-toxic, No Acute Distress Skin: Warm, Dry Head: Atraumatic, Normacephalic Eye(s): bilateral: PERRL, EOMI Oral Mucosa: Moist Neck: Supple Chest: Symmetrical, No Deformity, Other (No evidence of having recent CPR.) Cardiovascular: Rhythm Regular Respiratory: Normal Breath Sounds, No Rales, No Rhonchi, No Wheezing Gastrointestinal/Abdominal: Soft, No Tenderness Extremity: Other (AV fistula right arm. ) Neurological/Psych: Oriented x3, Other (Awake, alert and confused. ) ED Course And Treatment O2 Sat by Pulse Oximetry: 94 (RA) Pulse Ox Interpretation: Normal Medical Decision Making Medical Decision Making: bizarre and conflicing story of pt having received CPR @ home by the dialysis transport team, then was transported to the HD center for HD. Pt's claims pt NO CPR @ home, got on the transport voluntarily and in usual health exam in ED, no EMS present, no Executive Director Of Nursing reports, no evidence of recent CPR, pt Awake/alert, baseline confused. EKG baseline AF 71 d/w Dr. Nova defer w/u and send to HD center for usual HD today Disposition Doctor Will See Patient In The: Office Counseled Patient/Family Regarding: Studies Performed, Diagnosis - Disposition Referrals: Gilma Nova MD [Staff Provider] - Oz Watkins MD [Staff Provider] - Disposition: OTHER INSTITUTION Disposition Time: 09:30 Condition: GOOD Additional Instructions: pt was confused this AM normal mental status now please perform normal dialysis today Instructions: Dementia (DC) Forms: [employer] ([place]ican) - Clinical Impression Clinical Impression: Confusion - Scribe Statement The provider has reviewed the documentation as recorded by the Micaibe Pato Carlin Provider Attestation: All medical record entries made by the Micaibtyson were at my direction and personally dictated by me. I have reviewed the chart and agree that the record accurately reflects my personal performance of the history, physical exam, medical decision making, and the department course for this patient. I have also personally directed, reviewed, and agree with the discharge instructions and disposition.
[2018-02-18 11:00] VITALS: BP 136/75; PULSE 74; RESP 18
--- NOTE | 2018-02-21 19:37 | CARD ---
APPROVED REPORT Date of service: 02/18/2018 EKG Measurement Heart [id number] <Conclusion> Atrial fibrillation T wave abnormality, consider anterior ischemia Abnormal ECG
== END 2018-02-18 11:00 | disposition designated cancer center or children's hospital (05) ==
LOC: C.ER 09:06
DX: R41.0 Disorientation, unspecified (principal)

== ENCOUNTER 2018-05-03 11:59 | Inpatient (IN) | payer MEDICARE, BC ==
--- NOTE | 2018-05-03 14:13 | C.PDOC ---
Chief Complaint (Nursing): Lower Extremity Problem/Injury Past Medical History Vital Signs: Last Vital Signs Temp 98.2 F 05/03/18 12:36 Pulse 79 05/03/18 12:36 Resp 18 05/03/18 12:36 BP 159/81 H 05/03/18 12:36 Pulse Ox 98 05/03/18 12:36 - Medical History PMH: Cardia Arrhythmia (A FIB/FLUTTER), CHF, Diabetes, HTN, Hypercholesterolemia, Chronic Kidney Disease Denies: CVA - [facility] Procedures (01/10/18) EXCISION OF LEFT FOOT SKIN, EXTERNAL APPROACH (08/22/17) EXCISION OF LEFT METATARSAL, OPEN APPROACH, DIAGNOSTIC (08/22/17) REPLACE L FOOT SKIN W AUTOL SUB, FULL THICK, COTTON PICKER (08/22/17) - Social History Hx Alcohol Use: No Hx Substance Use: No - Immunization History Hx Tetanus Toxoid Vaccination: No Hx Influenza Vaccination: No Hx Pneumococcal Vaccination: Yes ED Course And Treatment O2 Sat by Pulse Oximetry: 98 Disposition - Disposition
[2018-05-03 15:55] LABS: BASO # 0.1 K/uL (0.0-0.2); BASO % 0.8 % (0.0-2.0); EOS % 0.3 % (0.0-4.0); HEMOGLOBIN 9.4 g/dL (12.0-18.0); LYMPH # 0.3 K/uL (1.0-4.3); LYMPH % 1.8 % (20.0-40.0); MEAN CELL VOLUME 97.5 fL (80.0-94.0); MEAN CORPUSCULAR HEMOGLOBIN 31.2 pg (27.0-31.0); MEAN PLATELET VOLUME 10.1 fL (7.2-11.7); MONO # 0.6 K/uL (0.0-0.8); MONO % 4.5 % (0.0-10.0); NEUT # 13.2 K/uL (1.8-7.0); NEUT % 92.6 % (50.0-75.0); NRBC % 0.1 % (0.0-2.0); PLATELET COUNT 193 K/uL (130-400); RBC 3.03 Mil/uL (4.40-5.90); RED CELL DISTRIBUTION WIDTH 16.7 % (11.5-14.5)
[2018-05-03 15:57] LABS: WHITE BLOOD COUNT 14.3 K/uL (4.8-10.8)
[2018-05-03 16:41] LABS: ALB/GLOB RATIO 0.7 (1.0-2.1); ALBUMIN 2.8 g/dL (3.5-5.0); CALCIUM 9.5 mg/dl (8.6-10.4)
[2018-05-03 18:27] LABS: ANISOCYTOSIS SLIGHT; BANDS 1 % (0-2); EOSINOPHIL 2 % (0-4); LYMPHOCYTE 4 % (20-40); MONOCYTE 4 % (0-10); NEUTROPHIL 89 % (50-75); PLATELET ESTIMATE NORMAL (NORMAL); TOTAL CELLS COUNTED 100
--- NOTE | 2018-05-03 18:57 | CT ---
Indication: pain Noncontrast CT of the left hip Comparison: Left hip/pelvis radiographs performed the same day. Technique: Noncontrast axial images of the left hip. Sagittal coronal reformatted images were generated and reviewed. This CT exam was performed using 1 or more of the falling dose reduction techniques: Automated exposure control, adjustment of the MAA and/or kV according to patient size, and/or use of iterative reconstruction technique. Total exam DLP: 166.48 Findings: No acute fracture. No dislocation. Degenerative changes including joint space narrowing. Dense vascular calcifications. Limited partially imaged intrapelvic contents demonstrate thick-walled urinary bladder. Large ascites. Anasarca. Impression: No acute displaced fracture identified. Degenerative changes. Thick-walled urinary bladder; recommend correlation with urinalysis. Large ascites. Anasarca.
[2018-05-03] MEDS ORDERED: Oxycodone/Acetaminophen 5/325 mg Tab PO PRN (20:08)
[2018-05-03] MEDS ORDERED: Heparin25000 units/250ml 1/2NS 25,000 UNITS/250 ML BAG IV PRN (20:26)
[2018-05-03] MEDS ORDERED: Piperacillin/Tazobact 2.25 GM in Sodium Chloride 100 ML IVPB ONE (20:30)
[2018-05-04] MEDS: Piperacillin/Tazobact 2.25 GM in Sodium Chloride 100 ML IVPB SCH ×3 (00:40→21:36)
[2018-05-04] MEDS: (Novolog) Insulin Aspart, Recombinant 100 u/ml 10 ml vial SC SCH ×4 (08:30→21:33)
--- NOTE | 2018-05-04 08:30 | RAD ---
Date of service: 05/03/2018 PROCEDURE: Left Foot Radiographs. HISTORY: r/o osteomyelitis COMPARISON: None. FINDINGS: BONES: No acute fracture or destructive bony lesion identified. No overt pattern to suggest osteomyelitis throughout the left foot diffusely. JOINTS: Degenerative changes are identified throughout the joints of the left foot diffusely, seen worst at the medial cuneiform 1st metatarsal and 1st metatarsophalangeal joints. No subluxation or dislocation. SOFT TISSUES: Edematous changes seen at the soft tissues related to the distal segment 5th metatarsal bone and the left 5th digit. No emphysema is related or retained radiodense foreign body. Vascular calcifications are distributed throughout the left foot soft tissues. OTHER FINDINGS: None. IMPRESSION: No acute fracture, dislocation or overt pattern of osteomyelitis. Consider three-phase bone scan or MRI of the left foot if concern for osteomyelitis remains, both of which are more sensitive than radiography. Soft tissue edema is seen minimally at the lateral forefoot. Diffuse degenerative joint disease [id number] severity.
--- NOTE | 2018-05-04 08:52 | RAD ---
Date of service: 05/03/2018 PROCEDURE: BILATERAL HIPS WITH PELVIS Radiographs HISTORY: r/o fracture COMPARISON: CT angiogram abdomen, pelvis and bilateral lower extremities 08/23/2017. TECHNIQUE: Frontal views of the bilateral hips and pelvis been captured in the single projection with frog-leg lateral views of each hip captured separately in radiographs. FINDINGS: No acute fracture or dislocation seen involving the bilateral hip joints. Advanced degenerative joint changes seen the bilateral hip joints comprised of joint space narrowing articular cortical sclerosis and osteophyte development. Lesser similar changes affect the bilateral sacroiliac joints. Pubic symphysis is intact swells remaining pubic bony anatomy with no fracture appreciated throughout the pelvic ring including the iliac bones. The sacrum appears grossly intact. There a cage are somewhat obscured by overlying bowel gas. Vascular calcifications are identified in the pelvis, bilateral inguinal regions and medial proximal thigh soft tissues as well. No destructive bony lesion appreciable. IMPRESSION: No acute fracture dislocation of the pelvic ring or either hip joint. Degenerative changes are advanced at the bilateral hip joints and moderate the bilateral sacroiliac joints. No destructive bony lesion appreciable. No significant interval change appreciated.
--- NOTE | 2018-05-04 08:57 | RAD ---
Date of service: 05/03/2018 PROCEDURE: Radiographs of the Lumbar Spine. HISTORY: low back pain, r/o fracture COMPARISON: CT angiogram abdomen, pelvis and bilateral lower extremities. FINDINGS: BONES: There straightening of lumbar curvature which is slightly increased in the interval. Stable limited grade 1 spondylolisthesis appreciated L4-5 with L4 anterior to L5 once again. Etiology indeterminate. Minimal anterior wedge compression fracture of L1 and L2 are identified which are chronic. No destructive bony lesion appreciable. DISC SPACES: Mild disc height loss is stable at L4-5 indicating degenerative disease with accentuated endplate sclerosis noted at the same levels. Borderline multilevel spondylosis appreciable. OTHER FINDINGS: None. IMPRESSION: Chronic minimal anterior wedge compression fracture of L1 and L2 are identified with stable grade 1 spondylolisthesis L4-5. Further straightening of lumbar curvature is noted in the interval. No destructive bony lesion appreciable grossly. MRI is available follow-up if clinically warranted.
--- NOTE | 2018-05-04 09:34 | CP.PCM.HP ---
History of Present Illness - History of Present Illness History of Present Illness: 73 years old [place] male was brought to the ED at [facility] because he cannot walk after he sustained a fall at home 4 days ago. According to him, the patient tripped and felt, hitting the left side of his head to his bed, left hip to the floor, Known to have an ESRD on HD, he missed his HD the past 4 days. 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 In 01/2018 he was hospitalized for a CHF, hematuria, ulcer of the left foot and VRE in his urine. Patient denies any SOB now, has no chest pain. But he is complaining of pain in his left hip, left frontal area, left shoulder. XRay and CT scan of the hips failed to show any fracture or dislocation. CT scan of the head shows no hemorrhage and Xray of the feet reveals osteoarthritis. Present on Admission - Present on Admission Any Indicators Present on Admission: No Review of Systems - Constitutional Constitutional: Weakness - EENT Additional comments: Hematoma of the left frontal area. - Musculoskeletal Additional comments: Henatoma of the left hip. Mild edema of the feet. Erythema and bullae disseminated in both lower legs. Tender left hip. - Neurological Neurological: Weakness - Psychiatric Psychiatric: Anxiety Past Patient History - Infectious Disease Hx of Infectious Diseases: None - Tetanus Immunizations Tetanus Immunization: Unknown - Past Medical History & Family History Past Medical History?: Yes - Past Social History Smoking Status: Never Smoked Alcohol: Occasional Drugs: Denies Home Situation {Lives}: With Family Domestic Violence: Negative - CARDIAC Hx Cardia Arrhythmia: Yes (A FIB/FLUTTER) Hx Congestive Heart Failure: Yes Hx Hypercholesterolemia: Yes Hx Hypertension: Yes - PULMONARY Hx Respiratory Disorders: No - NEUROLOGICAL Hx Neurological Disorder: No - HEENT Hx HEENT Problems: Yes Hx Cataracts: Yes (BILAT.) - RENAL Hx Chronic Kidney Disease: Yes Hx Dialysis: Yes - ENDOCRINE/METABOLIC Hx Diabetes Mellitus Type 2: Yes - HEMATOLOGICAL/ONCOLOGICAL Hx Blood Disorders: No Hx Blood Transfusions: Yes - INTEGUMENTARY Hx Dermatological Problems: No - MUSCULOSKELETAL/RHEUMATOLOGICAL Hx Falls: Yes (trip and fall at home 2 w ago) Hx Osteoarthritis: Yes - GASTROINTESTINAL Hx Gastrointestinal Disorders: Yes Other/Comment: BLOOD IN STOOL - GENITOURINARY/GYNECOLOGICAL Hx Genitourinary Disorders: No Hx Hematuria: Yes Hx Prostate Problems: Yes Hx Urinary Tract Infection: Yes - PSYCHIATRIC Hx Psychophysiologic Disorder: No Hx Substance Use: No - SURGICAL HISTORY Hx Surgeries: Yes Hx Arteriovenous Shunt: Yes (AV FISTULA RIGHT ARM) Hx Cataract Extraction: Yes (BILAT.) Hx Eye Surgery: Yes (LEFT EYE) Other/Comment: SKIN GRAFT LEFT FOOT - ANESTHESIA Hx Anesthesia: Yes Hx Anesthesia Reactions: No Hx Malignant Hyperthermia: No Meds Allergies/Adverse Reactions: Allergies Allergy/AdvReac Type Severity Reaction Status Date / Time No Known Allergies Allergy Verified 02/18/18 09:18 Physical Exam - Constitutional Appears: No Acute Distress, Chronically Ill - Head Exam Head Exam: NORMAL INSPECTION - Eye Exam Eye Exam: Normal appearance - ENT Exam ENT Exam: Normal Exam - Neck Exam Neck exam: Positive for: Normal Inspection - Respiratory Exam Respiratory Exam: Rhonchi, NORMAL BREATHING PATTERN - Cardiovascular Exam Cardiovascular Exam: Irregular Rhythm, Systolic Murmur - GI/Abdominal Exam GI & Abdominal Exam: Normal Bowel Sounds, Soft - Rectal Exam Rectal Exam: Deferred - Extremities Exam Additional comments: Erythema of the lower extremities with mild pedal edema and disseminated bullae. - Back Exam Back exam: NORMAL INSPECTION - Neurological Exam Neurological exam: Alert, Oriented x3 - Psychiatric Exam Psychiatric exam: Anxious Results - Vital Signs Recent Vital Signs: Last Vital Signs Temp 99.3 F 05/04/18 07:00 Pulse 97 H 05/04/18 07:00 Resp 20 05/04/18 07:00 BP 166/85 H 05/04/18 07:00 Pulse Ox 96 05/04/18 07:00 - Labs Result Diagrams: 05/03/18 15:51 05/03/18 15:51 Labs: Laboratory Results - last 24 hr 05/03/18 05/03/18 05/03/18 15:21 15:51 15:51 WBC 14.3 H D RBC 3.03 L Hgb 9.4 L Hct 29.5 L MCV 97.5 H MCH 31.2 H MCHC 32.0 L RDW 16.7 H Plt Count 193 MPV 10.1 Neut % (Auto) 92.6 H Lymph % (Auto) 1.8 L [place] % (Auto) 4.5 Eos % (Auto) 0.3 Baso % (Auto) 0.8 Neut # (Auto) 13.2 H Lymph # (Auto) 0.3 L [place] # (Auto) 0.6 Eos # (Auto) 0.0 Baso # (Auto) 0.1 Neutrophils % (Manual) 89 H Band Neutrophils % 1 Lymphocytes % (Manual) 4 L Monocytes % (Manual) 4 Eosinophils % (Manual) 2 Platelet Estimate Normal Anisocytosis (manual) Slight Sodium 130 L Potassium 4.9 Chloride 93 L Carbon Dioxide 26 Anion Gap 17 BUN 89 H Creatinine 7.6 H* D Est GFR ( Amer) 8 Est GFR (Non-Af Amer) 7 POC Glucose (mg/dL) 318 H Random Glucose 352 H D Calcium 9.5 Total Bilirubin 1.1 AST 32 ALT 17 L Alkaline Phosphatase 164 H Total Creatine Kinase 45 L Total Protein 7.1 Albumin 2.8 L Globulin 4.3 H Albumin/Globulin Ratio 0.7 L 05/03/18 05/03/18 05/03/18 18:52 19:54 23:53 WBC RBC Hgb Hct MCV MCH MCHC RDW Plt Count MPV Neut % (Auto) Lymph % (Auto) [place] % (Auto) Eos % (Auto) Baso % (Auto) Neut # (Auto) Lymph # (Auto) [place] # (Auto) Eos # (Auto) Baso # (Auto) Neutrophils % (Manual) Band Neutrophils % Lymphocytes % (Manual) Monocytes % (Manual) Eosinophils % (Manual) Platelet Estimate Anisocytosis (manual) Sodium Potassium Chloride Carbon Dioxide Anion Gap BUN Creatinine Est GFR ( Amer) Est GFR (Non-Af Amer) POC Glucose (mg/dL) 309 H 295 H 288 H Random Glucose Calcium Total Bilirubin AST ALT Alkaline Phosphatase Total Creatine Kinase Total Protein Albumin Globulin Albumin/Globulin Ratio 05/04/18 06:51 WBC RBC Hgb Hct MCV MCH MCHC RDW Plt Count MPV Neut % (Auto) Lymph % (Auto) [place] % (Auto) Eos % (Auto) Baso % (Auto) Neut # (Auto) Lymph # (Auto) [place] # (Auto) Eos # (Auto) Baso # (Auto) Neutrophils % (Manual) Band Neutrophils % Lymphocytes % (Manual) Monocytes % (Manual) Eosinophils % (Manual) Platelet Estimate Anisocytosis (manual) Sodium Potassium Chloride Carbon Dioxide Anion Gap BUN Creatinine Est GFR ( Amer) Est GFR (Non-Af Amer) POC Glucose (mg/dL) 253 H Random Glucose Calcium Total Bilirubin AST ALT Alkaline Phosphatase Total Creatine Kinase Total Protein Albumin Globulin Albumin/Globulin Ratio Assessment & Plan (1) Fall Status: Acute (2) Contusion of head Assessment and Plan: CT scan of the head: no intracranial hemorrhage. Status: Acute (3) Contusion of hip, left Assessment and Plan: Xray and CT scan of the hips revealed osteoarthritis, but no dislocation, no fracture. To have ortho evaluation, and start analgesics and PT. Status: Acute (4) Bilateral lower leg cellulitis Assessment and Plan: Start empirically Zosyn IV. Will get an ID evaluation. Status: Acute (5) Atrial fibrillation Assessment and Plan: On IV Heparin. If no surgery contemplated, will restart Eliquis PO. Status: Chronic (6) ESRD on hemodialysis Assessment and Plan: HD as per Nephrologists. Status: Chronic (7) Uncontrolled diabetes mellitus Assessment and Plan: Adjust medications to control blood glucose. Status: Chronic Decision To Admit - Pt Status Changed To: Hospital Disposition Of: Inpatient - Admit Certification Admit to Inpatient:: After my assessment, the patient will require hospitalization for at least two midnights. This is because of the severity of symptoms shown, intensity of services needed, and/or the medical risk in this patient being treated as an outpatient. - InPatient: Physician Admission Certification:: After ny assessements, the patient requires hospitalization for at least two midnights. - . Bed Request Type: Telemetry Admitting Physician: Oz Watkins
--- NOTE | 2018-05-04 10:16 | CP.PCM.CON ---
History of Present Illness - History of Present Illness History of Present Illness: 73 years old [place] male was brought to the ED at [facility] because he cannot walk after he sustained a fall at home 4 days ago. According to him, the patient tripped and felt, hitting the left side of his head to his bed, left hip to the floor, Known to have an ESRD on HD, he missed his HD the past 4 days. 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 In 01/2018 he was hospitalized for a CHF, hematuria, ulcer of the left foot and VRE in his urine. Patient denies any SOB now, has no chest pain. But he is complaining of pain in his left hip, left frontal area, left shoulder. XRay and CT scan of the hips failed to show any fracture or dislocation. CT scan of the head shows no hemorrhage and Xray of the feet reveals osteoarthritis. Has been stable on dialysis Had recent CHF episode treated by increasing UF goal at dialysis Left foot ulcer worsened recently Present on Admission Review of Systems - Review of Systems All systems: reviewed and no additional remarkable complaints except - Constitutional Constitutional: Lethargy, Malaise, Weakness - EENT Eyes: absent: As Per HPI, Blind Spots, Blurred Vision, Change in Vision, Decreased Night Vision, Diplopia, Discharge, Dry Eye, Exophthalmos, Floaters, Irritation, Itchy Eyes, Loss of Peripheral Vision, Pain, Photophobia, Requires Corrective Lenses, Sees Flashes, Spots in Vision, Tunnel Vision, Other Visual Disturbances, Loss of Vision, Other Ears: absent: As Per HPI, Decreased Hearing, Ear Discharge, Ear Pain, Tinnitus, Abnormal Hearing, Disequilibrium, Dizziness, Other Nose/Mouth/Throat: absent: As Per HPI, Epistaxis, Nasal Congestion, Nasal Discharge, Nasal Obstruction, Nasal Trauma, Nose Pain, Post Nasal Drip, Sinus Pain, Sinus Pressure, Bleeding Gums, Change in Voice, Dental Pain, Dry Mouth, Dysphagia, Halitosis, Hoarsness, Lip Swelling, Mouth Lesions, Mouth Pain, Odynophagia, Sore Throat, Throat Swelling, Tongue Swelling, Facial Pain, Neck Pain, Neck Mass, Other - Cardiovascular Cardiovascular: Dyspnea on Exertion, Leg Ulcers - Respiratory Respiratory: Dyspnea on Exertion - Gastrointestinal Gastrointestinal: Nausea - Genitourinary Genitourinary: As Per HPI - Musculoskeletal Musculoskeletal: Muscle Cramps, Muscle Weakness, Myalgias - Neurological Neurological: Weakness Past Patient History - Infectious Disease Hx of Infectious Diseases: None - Tetanus Immunizations Tetanus Immunization: Unknown - Past Medical History & Family History Past Medical History?: Yes Past Family History: Reviewed and not pertinent - Past Social History Smoking Status: Never Smoked Chewing Tobacco Use: No Cigar Use: No Alcohol: None Drugs: Denies Home Situation {Lives}: With Family - CARDIAC Hx Cardia Arrhythmia: Yes (A FIB/FLUTTER) Hx Congestive Heart Failure: Yes Hx Hypercholesterolemia: Yes Hx Hypertension: Yes - PULMONARY Hx Respiratory Disorders: No - NEUROLOGICAL Hx Neurological Disorder: No - HEENT Hx HEENT Problems: Yes Hx Cataracts: Yes (BILAT.) - RENAL Hx Chronic Kidney Disease: Yes - ENDOCRINE/METABOLIC Hx Diabetes Mellitus Type 2: Yes - HEMATOLOGICAL/ONCOLOGICAL Hx Blood Disorders: No - INTEGUMENTARY Hx Dermatological Problems: No - MUSCULOSKELETAL/RHEUMATOLOGICAL Hx Falls: Yes (trip and fall at home 2 w ago) - GASTROINTESTINAL Hx Gastrointestinal Disorders: Yes Other/Comment: BLOOD IN STOOL - GENITOURINARY/GYNECOLOGICAL Hx Genitourinary Disorders: No - PSYCHIATRIC Hx Psychophysiologic Disorder: No Hx Substance Use: No - SURGICAL HISTORY Hx Surgeries: Yes Hx Arteriovenous Shunt: Yes (AV FISTULA RIGHT ARM) Hx Cataract Extraction: Yes (BILAT.) Hx Eye Surgery: Yes (LEFT EYE) Other/Comment: SKIN GRAFT LEFT FOOT - ANESTHESIA Hx Anesthesia: Yes Hx Anesthesia Reactions: No Hx Malignant Hyperthermia: No Meds Allergies/Adverse Reactions: Allergies Allergy/AdvReac Type Severity Reaction Status Date / Time No Known Allergies Allergy Verified 02/18/18 09:18 - Medications Medications: Current Medications Calcium Acetate (Phoslo) 1,334 mg PO TIDCC [facility] Last Admin: 05/04/18 09:30 Dose: 1,334 mg Docusate Sodium (Colace) 100 mg PO BID PRN PRN Reason: Constipation Piperacillin Sod/Tazobactam (Sod 2.25 gm/ Sodium Chloride) 100 mls @ 200 mls/hr IVPB Q12H [facility]; Protocol Last Admin: 05/04/18 09:34 Dose: 200 mls/hr Heparin Sodium/Sodium Chloride (Heparin 51601 Units/250ml 1/2 Normal Saline) 25,000 units in 250 mls @ 7.348 mls/hr IV .Q24H PRN; Protocol PRN Reason: ADJUST RATE PER PROTOCOL Insulin Aspart (Novolog) 0 unit SC ACHS [facility]; Protocol Last Admin: 05/04/18 08:30 Dose: 3 units Metoprolol Tartrate (Lopressor) 25 mg PO BID [facility] Last Admin: 05/04/18 09:31 Dose: 25 mg Oxycodone/Acetaminophen (Percocet 5/325 Mg Tab) 1 tab PO Q4H PRN PRN Reason: Pain, severe (8-10) Stop: 05/06/18 20:09 Rosuvastatin Calcium (Crestor) 10 mg PO HS [facility] Tamsulosin HCl (Flomax) 0.4 mg PO DAILY [facility] Last Admin: 05/04/18 09:30 Dose: 0.4 mg Physical Exam - Head Exam Head Exam: ATRAUMATIC, NORMAL INSPECTION - Eye Exam Eye Exam: EOMI, Normal appearance - Neck Exam Neck exam: Positive for: Normal Inspection. Negative for: Tenderness - Respiratory Exam Respiratory Exam: Clear to Auscultation Bilateral, NORMAL BREATHING PATTERN - Cardiovascular Exam Cardiovascular Exam: Irregular Rhythm, +S1 - GI/Abdominal Exam GI & Abdominal Exam: Soft. absent: Tenderness - Extremities Exam Extremities exam: Positive for: normal inspection. Negative for: tenderness - Neurological Exam Neurological exam: Alert, CN II-XII Intact - Skin Skin Exam: Dry, Warm Results - Vital Signs Recent Vital Signs: Last Vital Signs Temp 99.3 F 05/04/18 07:00 Pulse 85 05/04/18 09:30 Resp 20 05/04/18 07:00 BP 153/80 H 05/04/18 09:31 Pulse Ox 96 05/04/18 07:00 - Labs Result Diagrams: 05/03/18 15:51 05/03/18 15:51 Labs: Laboratory Results - last 24 hr 05/03/18 05/03/18 05/03/18 15:21 15:51 15:51 WBC 14.3 H D RBC 3.03 L Hgb 9.4 L Hct 29.5 L MCV 97.5 H MCH 31.2 H MCHC 32.0 L RDW 16.7 H Plt Count 193 MPV 10.1 Neut % (Auto) 92.6 H Lymph % (Auto) 1.8 L [place] % (Auto) 4.5 Eos % (Auto) 0.3 Baso % (Auto) 0.8 Neut # (Auto) 13.2 H Lymph # (Auto) 0.3 L [place] # (Auto) 0.6 Eos # (Auto) 0.0 Baso # (Auto) 0.1 Neutrophils % (Manual) 89 H Band Neutrophils % 1 Lymphocytes % (Manual) 4 L Monocytes % (Manual) 4 Eosinophils % (Manual) 2 Platelet Estimate Normal Anisocytosis (manual) Slight Sodium 130 L Potassium 4.9 Chloride 93 L Carbon Dioxide 26 Anion Gap 17 BUN 89 H Creatinine 7.6 H* D Est GFR ( Amer) 8 Est GFR (Non-Af Amer) 7 POC Glucose (mg/dL) 318 H Random Glucose 352 H D Calcium 9.5 Total Bilirubin 1.1 AST 32 ALT 17 L Alkaline Phosphatase 164 H Total Creatine Kinase 45 L Total Protein 7.1 Albumin 2.8 L Globulin 4.3 H Albumin/Globulin Ratio 0.7 L 05/03/18 05/03/18 05/03/18 18:52 19:54 23:53 WBC RBC Hgb Hct MCV MCH MCHC RDW Plt Count MPV Neut % (Auto) Lymph % (Auto) [place] % (Auto) Eos % (Auto) Baso % (Auto) Neut # (Auto) Lymph # (Auto) [place] # (Auto) Eos # (Auto) Baso # (Auto) Neutrophils % (Manual) Band Neutrophils % Lymphocytes % (Manual) Monocytes % (Manual) Eosinophils % (Manual) Platelet Estimate Anisocytosis (manual) Sodium Potassium Chloride Carbon Dioxide Anion Gap BUN Creatinine Est GFR ( Amer) Est GFR (Non-Af Amer) POC Glucose (mg/dL) 309 H 295 H 288 H Random Glucose Calcium Total Bilirubin AST ALT Alkaline Phosphatase Total Creatine Kinase Total Protein Albumin Globulin Albumin/Globulin Ratio 05/04/18 06:51 WBC RBC Hgb Hct MCV MCH MCHC RDW Plt Count MPV Neut % (Auto) Lymph % (Auto) [place] % (Auto) Eos % (Auto) Baso % (Auto) Neut # (Auto) Lymph # (Auto) [place] # (Auto) Eos # (Auto) Baso # (Auto) Neutrophils % (Manual) Band Neutrophils % Lymphocytes % (Manual) Monocytes % (Manual) Eosinophils % (Manual) Platelet Estimate Anisocytosis (manual) Sodium Potassium Chloride Carbon Dioxide Anion Gap BUN Creatinine Est GFR ( Amer) Est GFR (Non-Af Amer) POC Glucose (mg/dL) 253 H Random Glucose Calcium Total Bilirubin AST ALT Alkaline Phosphatase Total Creatine Kinase Total Protein Albumin Globulin Albumin/Globulin Ratio Assessment & Plan (1) Cellulitis and abscess of left leg Status: Acute (2) Cardiomyopathy Status: Acute (3) PVD (peripheral vascular disease) Status: Acute (4) PVD (peripheral vascular disease) Status: Acute (5) ESRD (end stage renal disease) on dialysis Status: Chronic (6) Non-insulin dependent type 2 diabetes mellitus Status: Chronic - Assessment and Plan (Free Text) Plan: wound care IV ABs Surgical eval if needed Dialysis TTS/ adequate UF
[2018-05-04 11:43] LABS: INR 1.3; PROTHROMBIN TIME 14.7 SECONDS (9.7-12.2)
--- NOTE | 2018-05-04 14:23 | CP.PCM.CON ---
History of Present Illness - History of Present Illness History of Present Illness: Orthopedic consult: Dr. Weiner Patient is a 73 y/o male who c/o L hip pain. History obtained mostly from Margie who notes her becomes confused at times, not oriented to time and place. She reports her falling foward approximately 2 weeks ago while ambulating with walker. He lost his balance injuring his face at the time. She reports no trauma to the left hip but notes that he had been complaining of hip pain since the time of the injury. She notes that the patient was unable to bear weight to the LLE since last night due to pain in the left foot and hip. Currently, the patient has pain in the groin area that is dull and mild. There is pain with transferring from bed, sitting to standing and ambul ating. There is associated weakness and stiffness. 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 He currently denies CP/SOB/N/V/D/fever/dysuria/melena. Review of Systems - Review of Systems All systems: reviewed and no additional remarkable complaints except Review of Systems: as per HPI Past Patient History - Infectious Disease Hx of Infectious Diseases: None - Tetanus Immunizations Tetanus Immunization: Unknown - Past Medical History & Family History Past Medical History?: Yes Past Family History: Reviewed and not pertinent - Past Social History Smoking Status: Never Smoked Alcohol: Occasional Drugs: Denies Home Situation {Lives}: With Family Domestic Violence: Negative - CARDIAC Hx Cardia Arrhythmia: Yes (A FIB/FLUTTER) Hx Congestive Heart Failure: Yes Hx Hypercholesterolemia: Yes Hx Hypertension: Yes - PULMONARY Hx Respiratory Disorders: No - NEUROLOGICAL Hx Neurological Disorder: No - HEENT Hx HEENT Problems: Yes Hx Cataracts: Yes (BILAT.) - RENAL Hx Chronic Kidney Disease: Yes Hx Dialysis: Yes - ENDOCRINE/METABOLIC Hx Diabetes Mellitus Type 2: Yes - HEMATOLOGICAL/ONCOLOGICAL Hx Blood Disorders: No Hx Blood Transfusions: Yes - INTEGUMENTARY Hx Dermatological Problems: No - MUSCULOSKELETAL/RHEUMATOLOGICAL Hx Falls: Yes (trip and fall at home 2 w ago) Hx Osteoarthritis: Yes - GASTROINTESTINAL Hx Gastrointestinal Disorders: Yes Other/Comment: BLOOD IN STOOL - GENITOURINARY/GYNECOLOGICAL Hx Genitourinary Disorders: No Hx Hematuria: Yes Hx Prostate Problems: Yes Hx Urinary Tract Infection: Yes - PSYCHIATRIC Hx Psychophysiologic Disorder: No Hx Substance Use: No - SURGICAL HISTORY Hx Surgeries: Yes Hx Arteriovenous Shunt: Yes (AV FISTULA RIGHT ARM) Hx Cataract Extraction: Yes (BILAT.) Hx Eye Surgery: Yes (LEFT EYE) Other/Comment: SKIN GRAFT LEFT FOOT - ANESTHESIA Hx Anesthesia: Yes Hx Anesthesia Reactions: No Hx Malignant Hyperthermia: No Meds Allergies/Adverse Reactions: Allergies Allergy/AdvReac Type Severity Reaction Status Date / Time No Known Allergies Allergy Verified 02/18/18 09:18 - Medications Medications: Current Medications Apixaban (Eliquis) 2.5 mg PO BID [facility] Calcium Acetate (Phoslo) 1,334 mg PO TIDCC [facility] Last Admin: 05/04/18 12:40 Dose: 1,334 mg Docusate Sodium (Colace) 100 mg PO BID PRN PRN Reason: Constipation Piperacillin Sod/Tazobactam (Sod 2.25 gm/ Sodium Chloride) 100 mls @ 200 mls/hr IVPB Q12H [facility]; Protocol Last Admin: 05/04/18 09:34 Dose: 200 mls/hr Insulin Aspart (Novolog) 0 unit SC ACHS [facility]; Protocol Last Admin: 05/04/18 12:30 Dose: 2 units Metoprolol Tartrate (Lopressor) 25 mg PO BID [facility] Last Admin: 05/04/18 09:31 Dose: 25 mg Oxycodone/Acetaminophen (Percocet 5/325 Mg Tab) 1 tab PO Q4H PRN PRN Reason: Pain, severe (8-10) Stop: 05/06/18 20:09 Rosuvastatin Calcium (Crestor) 10 mg PO [facility] Tamsulosin HCl (Flomax) 0.4 mg PO DAILY [facility] Last Admin: 05/04/18 09:30 Dose: 0.4 mg Physical Exam - Constitutional Appears: Well, No Acute Distress - Head Exam Head Exam: NORMOCEPHALIC Additional comments: ecchymosis to left chin - Eye Exam Eye Exam: EOMI, Normal appearance, PERRL - ENT Exam ENT Exam: Mucous Membranes Moist - Respiratory Exam Respiratory Exam: NORMAL BREATHING PATTERN - Cardiovascular Exam Cardiovascular Exam: +S1, +S2 - GI/Abdominal Exam GI & Abdominal Exam: Soft. absent: Tenderness - Extremities Exam Additional comments: LLE: No lesions/masses/deformity to hip no tenderness to groin or lateral hip severe edema and erythema to left foot and ankle with multiple blisters, to anterior patel and foot dorsum Dressings intact to heel sensation intact SP/DP/TN Motor intact TA/G, unable to move toes intact fem and popliteal pulse calves soft NT b/l - Neurological Exam Neurological exam: Alert - Psychiatric Exam Psychiatric exam: Normal Affect, Normal Mood Results - Vital Signs Recent Vital Signs: Last Vital Signs Temp 99.3 F 05/04/18 07:00 Pulse 85 05/04/18 09:30 Resp 20 05/04/18 07:00 BP 153/80 H 05/04/18 09:31 Pulse Ox 96 05/04/18 07:00 - Labs Result Diagrams: 05/03/18 15:51 05/03/18 15:51 Labs: Laboratory Results - last 24 hr 05/03/18 05/03/18 05/03/18 15:21 15:51 15:51 WBC 14.3 H D RBC 3.03 L Hgb 9.4 L Hct 29.5 L MCV 97.5 H MCH 31.2 H MCHC 32.0 L RDW 16.7 H Plt Count 193 MPV 10.1 Neut % (Auto) 92.6 H Lymph % (Auto) 1.8 L [place] % (Auto) 4.5 Eos % (Auto) 0.3 Baso % (Auto) 0.8 Neut # (Auto) 13.2 H Lymph # (Auto) 0.3 L [place] # (Auto) 0.6 Eos # (Auto) 0.0 Baso # (Auto) 0.1 Neutrophils % (Manual) 89 H Band Neutrophils % 1 Lymphocytes % (Manual) 4 L Monocytes % (Manual) 4 Eosinophils % (Manual) 2 Platelet Estimate Normal Anisocytosis (manual) Slight PT INR APTT Sodium 130 L Potassium 4.9 Chloride 93 L Carbon Dioxide 26 Anion Gap 17 BUN 89 H Creatinine 7.6 H* D Est GFR ( Amer) 8 Est GFR (Non-Af Amer) 7 POC Glucose (mg/dL) 318 H Random Glucose 352 H D Calcium 9.5 Total Bilirubin 1.1 AST 32 ALT 17 L Alkaline Phosphatase 164 H Total Creatine Kinase 45 L Total Protein 7.1 Albumin 2.8 L Globulin 4.3 H Albumin/Globulin Ratio 0.7 L 05/03/18 05/03/18 05/03/18 18:52 19:54 23:53 WBC RBC Hgb Hct MCV MCH MCHC RDW Plt Count MPV Neut % (Auto) Lymph % (Auto) [place] % (Auto) Eos % (Auto) Baso % (Auto) Neut # (Auto) Lymph # (Auto) [place] # (Auto) Eos # (Auto) Baso # (Auto) Neutrophils % (Manual) Band Neutrophils % Lymphocytes % (Manual) Monocytes % (Manual) Eosinophils % (Manual) Platelet Estimate Anisocytosis (manual) PT INR APTT Sodium Potassium Chloride Carbon Dioxide Anion Gap BUN Creatinine Est GFR ( Amer) Est GFR (Non-Af Amer) POC Glucose (mg/dL) 309 H 295 H 288 H Random Glucose Calcium Total Bilirubin AST ALT Alkaline Phosphatase Total Creatine Kinase Total Protein Albumin Globulin Albumin/Globulin Ratio 05/04/18 05/04/18 05/04/18 06:51 11:17 11:54 WBC RBC Hgb Hct MCV MCH MCHC RDW Plt Count MPV Neut % (Auto) Lymph % (Auto) [place] % (Auto) Eos % (Auto) Baso % (Auto) Neut # (Auto) Lymph # (Auto) [place] # (Auto) Eos # (Auto) Baso # (Auto) Neutrophils % (Manual) Band Neutrophils % Lymphocytes % (Manual) Monocytes % (Manual) Eosinophils % (Manual) Platelet Estimate Anisocytosis (manual) PT 14.7 H INR 1.3 APTT 34 Sodium Potassium Chloride Carbon Dioxide Anion Gap BUN Creatinine Est GFR ( Amer) Est GFR (Non-Af Amer) POC Glucose (mg/dL) 253 H 201 H Random Glucose Calcium Total Bilirubin AST ALT Alkaline Phosphatase Total Creatine Kinase Total Protein Albumin Globulin Albumin/Globulin Ratio - Impressions Impression: Accession No. : [id number] Patient Name / ID : LAKEISHA PEDRAZA P / [id number] Exam Date : 05/03/2018 17:10:13 ( Approved ) Study Comment : Sex / Age : M / 73Y Creator : Oz Vega MD Dictator : Oz Vega MD Hot Roll Laminator : Affirmative Action Officer : Oz Vega MD Approver2 : Report Date : 05/04/2018 08:48:26 My Comment : Date of service: 05/03/2018 PROCEDURE: BILATERAL HIPS WITH PELVIS Radiographs HISTORY: r/o fracture COMPARISON: CT angiogram abdomen, pelvis and bilateral lower extremities 08/23/2017. TECHNIQUE: Frontal views of the bilateral hips and pelvis been captured in the single projection with frog-leg lateral views of each hip captured separately in radiographs. FINDINGS: No acute fracture or dislocation seen involving the bilateral hip joints. Advanced degenerative joint changes seen the bilateral hip joints comprised of joint space narrowing articular cortical sclerosis and osteophyte development. Lesser similar changes affect the bilateral sacroiliac joints. Pubic symphysis is intact swells remaining pubic bony anatomy with no fracture appreciated throughout the pelvic ring including the iliac bones. The sacrum appears grossly intact. There a cage are somewhat obscured by overlying bowel gas. Vascular calcifications are identified in the pelvis, bilateral inguinal regions and medial proximal thigh soft tissues as well. No destructive bony lesion appreciable. IMPRESSION: No acute fracture dislocation of the pelvic ring or either hip joint. Degenerative changes are advanced at the bilateral hip joints and moderate the bilateral sacroiliac joints. No destructive bony lesion appreciable. No significant interval change appreciated. Accession No. : [id number] Patient Name / ID : LAKEISHA De La Fuente / [id number] Exam Date : 05/03/2018 18:02:06 ( Approved ) Study Comment : Sex / Age : M / 73Y Creator : Carissa Mauro MD Dictator : Carissa Mauro MD Hot Roll Laminator : Affirmative Action Officer : Carissa Mauro MD Approver2 : Report Date : 05/03/2018 18:49:03 My Comment : Indication: pain Noncontrast CT of the left hip Comparison: Left hip/pelvis radiographs performed the same day. Technique: Noncontrast axial images of the left hip. Sagittal coronal reform atted images were generated and reviewed. This CT exam was performed using 1 or more of the falling dose reduction techniques: Automated exposure control, adjustment of the MAA and/or kV according to patient size, and/or use of iterative reconstruction technique. Total exam DLP: 166.48 Findings: No acute fracture. No dislocation. Degenerative changes including joint space narrowing. Dense vascular calcifications. Limited partially imaged intrapelvic contents demonstrate thick-walled urinary bladder. Large ascites. Anasarca. Impression: No acute displaced fracture identified. Degenerative changes. Thick-walled urinary bladder; recommend correlation with urinalysis. Large ascites. Anasarca. Assessment & Plan (1) Osteoarthritis of left hip Assessment and Plan: -Recommend L hip MRI for further evaluation -Recommend L total hip replacement due to patients's advanced osteoarthritis. However, due to patient's active left leg cellulitis, the patient is a poor surgical candidate at this time -PT/OT WBAT with assistive device and pain control for now -Patient to follow up with Dr. Weiner as an outpatient once infection has resolved -above d/w Dr. Weiner in agreement Status: Acute
--- NOTE | 2018-05-04 14:25 | CP.PCM.CON ---
History of Present Illness - History of Present Illness History of Present Illness: Podiatry Consult Note - Dr. Alfredo Cavanaugh 72 y/o male patient with PMHx of DM, HTN, ESRD on HD, chronic atrial fibrillation, HLD seen at bedside this morning for left foot and ankle ulcerations with multiple fluid-filled blisters. Pt is known to Dr. Cavanaugh's service and last saw him in office approx 3-4 weeks ago for management of left lower extremity recurrent ulcerations. He states he is currently in the hospital after sustaining a fall a few weeks ago. Admits to discomfort to both legs but denies localized pain to the site of his ankle ulcer or his left lower leg. Denies F/C/N/V/CP/SOB. PSHx: AV fistula, cataract surgery, multiple wound debridements with skin grafts to left ankle and foot ulcers SocHx: denies EtOH, cigarette or illicit drug use All: NKDA Review of Systems - Review of Systems All systems: reviewed and no additional remarkable complaints except (per HPI) Past Patient History - Infectious Disease Hx of Infectious Diseases: None - Tetanus Immunizations Tetanus Immunization: Unknown - Past Medical History & Family History Past Medical History?: Yes - Past Social History Smoking Status: Never Smoked Alcohol: Occasional Drugs: Denies Home Situation {Lives}: With Family Domestic Violence: Negative - CARDIAC Hx Cardia Arrhythmia: Yes (A FIB/FLUTTER) Hx Congestive Heart Failure: Yes Hx Hypercholesterolemia: Yes Hx Hypertension: Yes - PULMONARY Hx Respiratory Disorders: No - NEUROLOGICAL Hx Neurological Disorder: No - HEENT Hx HEENT Problems: Yes Hx Cataracts: Yes (BILAT.) - RENAL Hx Chronic Kidney Disease: Yes Hx Dialysis: Yes - ENDOCRINE/METABOLIC Hx Diabetes Mellitus Type 2: Yes - HEMATOLOGICAL/ONCOLOGICAL Hx Blood Disorders: No Hx Blood Transfusions: Yes - INTEGUMENTARY Hx Dermatological Problems: No - MUSCULOSKELETAL/RHEUMATOLOGICAL Hx Falls: Yes (trip and fall at home 2 w ago) Hx Osteoarthritis: Yes - GASTROINTESTINAL Hx Gastrointestinal Disorders: Yes Other/Comment: BLOOD IN STOOL - GENITOURINARY/GYNECOLOGICAL Hx Genitourinary Disorders: No Hx Hematuria: Yes Hx Prostate Problems: Yes Hx Urinary Tract Infection: Yes - PSYCHIATRIC Hx Psychophysiologic Disorder: No Hx Substance Use: No - SURGICAL HISTORY Hx Surgeries: Yes Hx Arteriovenous Shunt: Yes (AV FISTULA RIGHT ARM) Hx Cataract Extraction: Yes (BILAT.) Hx Eye Surgery: Yes (LEFT EYE) Other/Comment: SKIN GRAFT LEFT FOOT - ANESTHESIA Hx Anesthesia: Yes Hx Anesthesia Reactions: No Hx Malignant Hyperthermia: No Meds Allergies/Adverse Reactions: Allergies Allergy/AdvReac Type Severity Reaction Status Date / Time No Known Allergies Allergy Verified 02/18/18 09:18 - Medications Medications: Current Medications Apixaban (Eliquis) 2.5 mg PO BID [facility] Calcium Acetate (Phoslo) 1,334 mg PO TIDCC [facility] Last Admin: 05/04/18 12:40 Dose: 1,334 mg Docusate Sodium (Colace) 100 mg PO BID PRN PRN Reason: Constipation Piperacillin Sod/Tazobactam (Sod 2.25 gm/ Sodium Chloride) 100 mls @ 200 mls/hr IVPB Q12H [facility]; Protocol Last Admin: 05/04/18 09:34 Dose: 200 mls/hr Insulin Aspart (Novolog) 0 unit SC ACHS [facility]; Protocol Last Admin: 05/04/18 12:30 Dose: 2 units Metoprolol Tartrate (Lopressor) 25 mg PO BID [facility] Last Admin: 05/04/18 09:31 Dose: 25 mg Oxycodone/Acetaminophen (Percocet 5/325 Mg Tab) 1 tab PO Q4H PRN PRN Reason: Pain, severe (8-10) Stop: 05/06/18 20:09 Rosuvastatin Calcium (Crestor) 10 mg PO HS [facility] Tamsulosin HCl (Flomax) 0.4 mg PO DAILY [facility] Last Admin: 05/04/18 09:30 Dose: 0.4 mg Physical Exam - Constitutional Appears: Well, Non-toxic, No Acute Distress - Extremities Exam Additional comments: Lower extremity focused exam: Vasc: DP/PT pulses palpable 2/4. Temperature gradient warm to warm. CFT < 3 sec to all digits. No pedal edema noted Derm: Open ulceration noted to left lateral malleolus, circular in shape and approx 3cm in diameter and 0.4cm in depth with 80% fibrotic and 20% granular wound base, with some necrotic tissue noted centrally to wound bed. Macerated wound borders. Active purulent drainage noted with malodor. No tunneling or underming, no purulence, no fluctuance. Additional healed ulceration noted to left lateral midfoot with overlying hyperkeratotic tissue. Additional transparent fluid-filled blisters noted to dorsum of left foot and left lower leg. Stage 2 pressure ulceration to left heel with thin fragile erythematous skin with no break in skin noted Neuro: Protective sensation slightly diminished Ortho: No tenderness to palpation of left lower extremity ulcerations - Neurological Exam Neurological exam: Alert - Psychiatric Exam Psychiatric exam: Normal Affect, Normal Mood Results - Vital Signs Recent Vital Signs: Last Vital Signs Temp 99.3 F 05/04/18 07:00 Pulse 85 05/04/18 09:30 Resp 20 05/04/18 07:00 BP 153/80 H 05/04/18 09:31 Pulse Ox 96 05/04/18 07:00 - Labs Result Diagrams: 05/03/18 15:51 05/03/18 15:51 Labs: Laboratory Results - last 24 hr 05/03/18 05/03/18 05/03/18 15:21 15:51 15:51 WBC 14.3 H D RBC 3.03 L Hgb 9.4 L Hct 29.5 L MCV 97.5 H MCH 31.2 H MCHC 32.0 L RDW 16.7 H Plt Count 193 MPV 10.1 Neut % (Auto) 92.6 H Lymph % (Auto) 1.8 L [place] % (Auto) 4.5 Eos % (Auto) 0.3 Baso % (Auto) 0.8 Neut # (Auto) 13.2 H Lymph # (Auto) 0.3 L [place] # (Auto) 0.6 Eos # (Auto) 0.0 Baso # (Auto) 0.1 Neutrophils % (Manual) 89 H Band Neutrophils % 1 Lymphocytes % (Manual) 4 L Monocytes % (Manual) 4 Eosinophils % (Manual) 2 Platelet Estimate Normal Anisocytosis (manual) Slight PT INR APTT Sodium 130 L Potassium 4.9 Chloride 93 L Carbon Dioxide 26 Anion Gap 17 BUN 89 H Creatinine 7.6 H* D Est GFR ( Amer) 8 Est GFR (Non-Af Amer) 7 POC Glucose (mg/dL) 318 H Random Glucose 352 H D Calcium 9.5 Total Bilirubin 1.1 AST 32 ALT 17 L Alkaline Phosphatase 164 H Total Creatine Kinase 45 L Total Protein 7.1 Albumin 2.8 L Globulin 4.3 H Albumin/Globulin Ratio 0.7 L 05/03/18 05/03/18 05/03/18 18:52 19:54 23:53 WBC RBC Hgb Hct MCV MCH MCHC RDW Plt Count MPV Neut % (Auto) Lymph % (Auto) [place] % (Auto) Eos % (Auto) Baso % (Auto) Neut # (Auto) Lymph # (Auto) [place] # (Auto) Eos # (Auto) Baso # (Auto) Neutrophils % (Manual) Band Neutrophils % Lymphocytes % (Manual) Monocytes % (Manual) Eosinophils % (Manual) Platelet Estimate Anisocytosis (manual) PT INR APTT Sodium Potassium Chloride Carbon Dioxide Anion Gap BUN Creatinine Est GFR ( Amer) Est GFR (Non-Af Amer) POC Glucose (mg/dL) 309 H 295 H 288 H Random Glucose Calcium Total Bilirubin AST ALT Alkaline Phosphatase Total Creatine Kinase Total Protein Albumin Globulin Albumin/Globulin Ratio 05/04/18 05/04/18 05/04/18 06:51 11:17 11:54 WBC RBC Hgb Hct MCV MCH MCHC RDW Plt Count MPV Neut % (Auto) Lymph % (Auto) [place] % (Auto) Eos % (Auto) Baso % (Auto) Neut # (Auto) Lymph # (Auto) [place] # (Auto) Eos # (Auto) Baso # (Auto) Neutrophils % (Manual) Band Neutrophils % Lymphocytes % (Manual) Monocytes % (Manual) Eosinophils % (Manual) Platelet Estimate Anisocytosis (manual) PT 14.7 H INR 1.3 APTT 34 Sodium Potassium Chloride Carbon Dioxide Anion Gap BUN Creatinine Est GFR ( Amer) Est GFR (Non-Af Amer) POC Glucose (mg/dL) 253 H 201 H Random Glucose Calcium Total Bilirubin AST ALT Alkaline Phosphatase Total Creatine Kinase Total Protein Albumin Globulin Albumin/Globulin Ratio Assessment & Plan - Assessment and Plan (Free Text) Assessment: 72 y/o male with left lower extremity ulcerations to foot and ankle Plan Pt seen and evaluated at bedside Discussed plan with attending Dr. Cavanaugh Wound cx taken of left ankle ulceration Multipodus boots ordered, to be worn at all times in bed Left ankle ulcer cleaned with saline and dressed with betadine, DSD Ankle x-rays ordered Continue IV abx per ID recommendations Will continue to follow pt while in house
--- NOTE | 2018-05-04 17:06 | CP.PCM.CON ---
History of Present Illness - History of Present Illness History of Present Illness: 73 years old [place] recently sustained a fall at home hitting the left side of his head and left hip Referred for ID evaluation because of severe cellulitis Left foot and leg PMH ESRD on HD, HTN, NIDDM, ESRD on HD, chronic atrial fibrillation, BPH, severe PAD, with ulcers of the left foot ( followed by Dr Alfredo Cavanaugh ), CHF, Past Patient History - Infectious Disease Hx of Infectious Diseases: None - Tetanus Immunizations Tetanus Immunization: Unknown - Past Medical History & Family History Past Medical History?: Yes Past Family History: Reviewed and not pertinent - Past Social History Smoking Status: Never Smoked Alcohol: Occasional Drugs: Denies Home Situation {Lives}: With Family Domestic Violence: Negative - CARDIAC Hx Cardia Arrhythmia: Yes (A FIB/FLUTTER) Hx Congestive Heart Failure: Yes Hx Hypercholesterolemia: Yes Hx Hypertension: Yes - PULMONARY Hx Respiratory Disorders: No - NEUROLOGICAL Hx Neurological Disorder: No - HEENT Hx HEENT Problems: Yes Hx Cataracts: Yes (BILAT.) - RENAL Hx Chronic Kidney Disease: Yes Hx Dialysis: Yes - ENDOCRINE/METABOLIC Hx Diabetes Mellitus Type 2: Yes - HEMATOLOGICAL/ONCOLOGICAL Hx Blood Disorders: No Hx Blood Transfusions: Yes - INTEGUMENTARY Hx Dermatological Problems: No - MUSCULOSKELETAL/RHEUMATOLOGICAL Hx Falls: Yes (trip and fall at home 2 w ago) Hx Osteoarthritis: Yes - GASTROINTESTINAL Hx Gastrointestinal Disorders: Yes Other/Comment: BLOOD IN STOOL - GENITOURINARY/GYNECOLOGICAL Hx Genitourinary Disorders: No Hx Hematuria: Yes Hx Prostate Problems: Yes Hx Urinary Tract Infection: Yes - PSYCHIATRIC Hx Psychophysiologic Disorder: No Hx Substance Use: No - SURGICAL HISTORY Hx Surgeries: Yes Hx Arteriovenous Shunt: Yes (AV FISTULA RIGHT ARM) Hx Cataract Extraction: Yes (BILAT.) Hx Eye Surgery: Yes (LEFT EYE) Other/Comment: SKIN GRAFT LEFT FOOT - ANESTHESIA Hx Anesthesia: Yes Hx Anesthesia Reactions: No Hx Malignant Hyperthermia: No Meds Allergies/Adverse Reactions: Allergies Allergy/AdvReac Type Severity Reaction Status Date / Time No Known Allergies Allergy Verified 02/18/18 09:18 - Medications Medications: Current Medications Apixaban (Eliquis) 2.5 mg PO BID [facility] Calcium Acetate (Phoslo) 1,334 mg PO TIDCC [facility] Last Admin: 05/04/18 12:40 Dose: 1,334 mg Docusate Sodium (Colace) 100 mg PO BID PRN PRN Reason: Constipation Piperacillin Sod/Tazobactam (Sod 2.25 gm/ Sodium Chloride) 100 mls @ 200 mls/hr IVPB Q12H [facility]; Protocol Last Admin: 05/04/18 09:34 Dose: 200 mls/hr Insulin Aspart (Novolog) 0 unit SC ACHS [facility]; Protocol Last Admin: 05/04/18 12:30 Dose: 2 units Metoprolol Tartrate (Lopressor) 25 mg PO BID [facility] Last Admin: 05/04/18 09:31 Dose: 25 mg Oxycodone/Acetaminophen (Percocet 5/325 Mg Tab) 1 tab PO Q4H PRN PRN Reason: Pain, severe (8-10) Stop: 05/06/18 20:09 Rosuvastatin Calcium (Crestor) 10 mg PO [facility] Tamsulosin HCl (Flomax) 0.4 mg PO DAILY [facility] Last Admin: 05/04/18 09:30 Dose: 0.4 mg Physical Exam - Constitutional Appears: Non-toxic, No Acute Distress, Chronically Ill - Head Exam Head Exam: ATRAUMATIC, NORMOCEPHALIC - Eye Exam Eye Exam: EOMI, PERRL - ENT Exam ENT Exam: Mucous Membranes Dry, Normal External Ear Exam, Normal Oropharynx - Respiratory Exam Respiratory Exam: Decreased Breath Sounds, Clear to Auscultation Bilateral - Cardiovascular Exam Cardiovascular Exam: REGULAR RHYTHM, +S1, +S2 - GI/Abdominal Exam GI & Abdominal Exam: Diminished Bowel Sounds, Soft. absent: Tenderness - Rectal Exam Rectal Exam: Deferred - Exam Exam: NORMAL INSPECTION - Extremities Exam Extremities exam: Positive for: pedal edema, tenderness, pedal pulses present. Negative for: calf tenderness Additional comments: left foot / ankle cellulitis with blisters - Back Exam Back exam: absent: CVA tenderness (L), CVA tenderness (R) - Neurological Exam Neurological exam: Alert, CN II-XII Intact, Oriented x3, Reflexes Normal - Psychiatric Exam Psychiatric exam: Depressed - Skin Skin Exam: Dry Results - Vital Signs Recent Vital Signs: Last Vital Signs Temp 98.4 F 05/04/18 13:45 Pulse 71 05/04/18 13:45 Resp 16 05/04/18 13:45 BP 110/67 05/04/18 15:02 Pulse Ox 96 05/04/18 10:00 - Labs Result Diagrams: 05/05/18 11:53 05/05/18 11:53 Labs: Laboratory Results - last 24 hr 05/03/18 05/03/18 05/03/18 15:51 18:52 19:54 Neutrophils % (Manual) 89 H Band Neutrophils % 1 Lymphocytes % (Manual) 4 L Monocytes % (Manual) 4 Eosinophils % (Manual) 2 Platelet Estimate Normal Anisocytosis (manual) Slight PT INR APTT POC Glucose (mg/dL) 309 H 295 H 05/03/18 05/04/18 05/04/18 23:53 06:51 11:17 Neutrophils % (Manual) Band Neutrophils % Lymphocytes % (Manual) Monocytes % (Manual) Eosinophils % (Manual) Platelet Estimate Anisocytosis (manual) PT 14.7 H INR 1.3 APTT 34 POC Glucose (mg/dL) 288 H 253 H 05/04/18 11:54 Neutrophils % (Manual) Band Neutrophils % Lymphocytes % (Manual) Monocytes % (Manual) Eosinophils % (Manual) Platelet Estimate Anisocytosis (manual) PT INR APTT POC Glucose (mg/dL) 201 H Assessment & Plan - Assessment and Plan (Free Text) Assessment: severe cellulitis with possible necrosis podiatry on board IV rx ordered empirically may need OR debridement
[2018-05-04] MEDS ORDERED: Vancomycin 1 gm/NS 200 ml 1 GM/200 ML BAG IVPB STA (20:57)
--- NOTE | 2018-05-05 00:07 | CP.PCM.PN ---
Subjective - Date & Time of Evaluation Date of Evaluation: 05/04/18 Time of Evaluation: 20:00 - Subjective Subjective: Patient feels better. Blood culture reveals G (+) bacteria. On IV Vancomycin and Zosyn IV. Objective - Vital Signs/Intake and Output Vital Signs (last 24 hours): Temp Pulse Resp BP Pulse Ox 98.4 F 71 18 134/78 96 05/04/18 17:05 05/04/18 17:54 05/04/18 17:54 05/04/18 18:19 05/04/18 17:05 Intake and Output: 05/04/18 05/05/18 18:59 06:59 Intake Total 500 Balance 500 - Medications Medications: Current Medications Apixaban (Eliquis) 2.5 mg PO BID [facility] Last Admin: 05/04/18 18:18 Dose: 2.5 mg Calcium Acetate (Phoslo) 1,334 mg PO TIDCC [facility] Last Admin: 05/04/18 18:18 Dose: 1,334 mg Docusate Sodium (Colace) 100 mg PO BID PRN PRN Reason: Constipation Piperacillin Sod/Tazobactam (Sod 2.25 gm/ Sodium Chloride) 100 mls @ 200 mls/hr IVPB Q12H [facility]; Protocol Last Admin: 05/04/18 21:36 Dose: 200 mls/hr Vancomycin HCl 500 mg/ Sodium (Chloride) 100 mls @ 100 mls/hr IVPB TTS [facility]; Protocol Insulin Aspart (Novolog) 0 unit SC ACHS [facility]; Protocol Last Admin: 05/04/18 21:33 Dose: Not Given Metoprolol Tartrate (Lopressor) 25 mg PO BID [facility] Last Admin: 05/04/18 18:19 Dose: 25 mg Oxycodone/Acetaminophen (Percocet 5/325 Mg Tab) 1 tab PO Q4H PRN PRN Reason: Pain, severe (8-10) Stop: 05/06/18 20:09 Rosuvastatin Calcium (Crestor) 10 mg PO HS [facility] Last Admin: 05/04/18 21:37 Dose: 10 mg Tamsulosin HCl (Flomax) 0.4 mg PO DAILY [facility] Last Admin: 05/04/18 09:30 Dose: 0.4 mg - Labs Labs: 05/03/18 15:51 05/03/18 15:51 PT 14.7 SECONDS (9.7-12.2) H 05/04/18 11:17 INR 1.3 05/04/18 11:17 APTT 34 SECONDS (21-34) 05/04/18 11:17 - Constitutional Appears: No Acute Distress, Chronically Ill - Head Exam Head Exam: NORMAL INSPECTION - Eye Exam Eye Exam: Normal appearance - ENT Exam ENT Exam: Normal Exam - Neck Exam Neck Exam: Normal Inspection - Respiratory Exam Respiratory Exam: Clear to Ausculation Bilateral - Cardiovascular Exam Cardiovascular Exam: Irregular Rhythm, Murmur - GI/Abdominal Exam GI & Abdominal Exam: Soft, Normal Bowel Sounds - Rectal Exam Rectal Exam: Deferred - Extremities Exam Additional comments: Cellulitis od both lower legs. - Back Exam Back Exam: NORMAL INSPECTION - Neurological Exam Neurological Exam: Alert, Awake, Oriented x3 - Psychiatric Exam Psychiatric exam: Anxious - Skin Additional comments: Cellulitis of both lower legs. Assessment and Plan (1) Fall Status: Acute (2) Contusion of head Status: Acute (3) Contusion of hip, left Status: Acute (4) Bilateral lower leg cellulitis Status: Acute (5) Atrial fibrillation Status: Chronic (6) ESRD on hemodialysis Status: Chronic (7) Uncontrolled diabetes mellitus Status: Chronic (8) Bilateral cellulitis of lower leg Assessment & Plan: Podiaty evaluation. IV antibiotics. Status: Acute
[2018-05-05] MEDS: (Novolog) Insulin Aspart, Recombinant 100 u/ml 10 ml vial SC SCH ×4 (08:30→21:56)
[2018-05-05] MEDS: Piperacillin/Tazobact 2.25 GM in Sodium Chloride 100 ML IVPB SCH ×2 (09:54→22:00)
--- NOTE | 2018-05-05 11:30 | CP.PCM.PN ---
Subjective - Date & Time of Evaluation Date of Evaluation: 05/05/18 Time of Evaluation: 11:30 - Subjective Subjective: Podiatry Progress Note - Dr. Cavanaugh 73 y/o male seen at bedside this morning with Dr. Cavanaugh for left ankle ulcer with left lower extremity erythema. Pt resting in bed at time of visit, somewhat lethargic and sad. No new complaints offered today. States he has diffuse pain to the hips and legs. Feels frustrated that he cannot walk. Denies F/C/N/V/CP/SOB Objective - Vital Signs/Intake and Output Vital Signs (last 24 hours): Temp Pulse Resp BP Pulse Ox 98.1 F 85 20 150/75 96 05/05/18 07:52 05/05/18 09:01 05/05/18 07:52 05/05/18 09:02 05/05/18 07:52 Intake and Output: 05/05/18 05/05/18 06:59 18:59 Intake Total 500 Balance 500 - Medications Medications: Current Medications Apixaban (Eliquis) 2.5 mg PO BID [facility] Last Admin: 05/05/18 09:02 Dose: 2.5 mg Calcium Acetate (Phoslo) 1,334 mg PO TIDCC [facility] Last Admin: 05/05/18 08:56 Dose: 1,334 mg Docusate Sodium (Colace) 100 mg PO BID PRN PRN Reason: Constipation Piperacillin Sod/Tazobactam (Sod 2.25 gm/ Sodium Chloride) 100 mls @ 200 mls/hr IVPB Q12H [facility]; Protocol Last Admin: 05/05/18 09:54 Dose: 200 mls/hr Vancomycin HCl 500 mg/ Sodium (Chloride) 100 mls @ 100 mls/hr IVPB TTS [facility]; Protocol Insulin Aspart (Novolog) 0 unit SC ACHS [facility]; Protocol Last Admin: 05/05/18 08:30 Dose: 1 units Metoprolol Tartrate (Lopressor) 25 mg PO BID [facility] Last Admin: 05/05/18 09:02 Dose: 25 mg Mupirocin (Bactroban Ointment) 0 gm TOP DAILY [facility] Oxycodone/Acetaminophen (Percocet 5/325 Mg Tab) 1 tab PO Q4H PRN PRN Reason: Pain, severe (8-10) Stop: 05/06/18 20:09 Rosuvastatin Calcium (Crestor) 10 mg PO HS [facility] Last Admin: 05/04/18 21:37 Dose: 10 mg Tamsulosin HCl (Flomax) 0.4 mg PO DAILY [facility] Last Admin: 05/05/18 09:02 Dose: 0.4 mg - Labs Labs: 05/03/18 15:51 05/03/18 15:51 PT 14.7 SECONDS (9.7-12.2) H 05/04/18 11:17 INR 1.3 05/04/18 11:17 APTT 34 SECONDS (21-34) 05/04/18 11:17 - Constitutional Appears: Well, Non-toxic, No Acute Distress - Extremities Exam Additional comments: Lower extremity focused exam: Vasc: DP/PT pulses palpable 2/4. Temperature gradient warm to warm. CFT < 3 sec to all digits. No pedal edema noted Derm: Open circular ulceration noted to left lateral malleolus approx 3cm diameter and 0.4cm in depth with 80% fibrotic and 20% granular wound base, with some necrotic tissue noted centrally to wound bed. Macerated wound borders. Active purulent drainage noted with malodor. No tunneling or undermining, no purulence, no fluctuance. Additional healed ulceration noted to left lateral midfoot with overlying hyperkeratotic tissue. Multiple lanced fluid-filled blisters noted to dorsum of left foot and left lower leg with no underlying open lesions. Stage 2 pressure ulceration to left heel with thin fragile erythematous skin with no break in skin noted Neuro: Protective sensation slightly diminished Ortho: No tenderness to palpation of left lower extremity ulcerations - Neurological Exam Neurological Exam: Alert, Awake - Psychiatric Exam Psychiatric exam: Normal Affect, Normal Mood Assessment and Plan - Assessment and Plan (Free Text) Assessment: 73 y/o male with left lower extremity ulcerations to foot and ankle Plan Pt seen and evaluated at bedside with attending Dr. Cavanaugh Wound cx of left ankle pending Multipodus boots to be worn at all times in bed Left ankle ulcer cleaned with saline and dressed with betadine, DSD Ankle x-rays reviewed- no acute osseous findings are noted Bactroban ordered, podiatry to continue with local wound care Continue IV abx per ID recommendations Will continue to follow pt while in house
--- NOTE | 2018-05-05 12:00 | CP.PCM.PN ---
Subjective - Date & Time of Evaluation Date of Evaluation: 05/05/18 Time of Evaluation: 11:55 - Subjective Subjective: Patient with at bedside. He is complaining of pain in his heels that is worse than yesterday. He denies hip pain at this time. Review of Systems - Review of Systems All systems: reviewed and no additional remarkable complaints except (patient confused) Objective - Vital Signs/Intake and Output Vital Signs (last 24 hours): Temp Pulse Resp BP Pulse Ox 98.1 F 85 20 150/75 96 05/05/18 07:52 05/05/18 09:01 05/05/18 07:52 05/05/18 09:02 05/05/18 07:52 Intake and Output: 05/05/18 05/05/18 06:59 18:59 Intake Total 500 Balance 500 - Medications Medications: Current Medications Apixaban (Eliquis) 2.5 mg PO BID [facility] Last Admin: 05/05/18 09:02 Dose: 2.5 mg Calcium Acetate (Phoslo) 1,334 mg PO TIDCC [facility] Last Admin: 05/05/18 08:56 Dose: 1,334 mg Docusate Sodium (Colace) 100 mg PO BID PRN PRN Reason: Constipation Piperacillin Sod/Tazobactam (Sod 2.25 gm/ Sodium Chloride) 100 mls @ 200 mls/hr IVPB Q12H [facility]; Protocol Last Admin: 05/05/18 09:54 Dose: 200 mls/hr Vancomycin HCl 500 mg/ Sodium (Chloride) 100 mls @ 100 mls/hr IVPB TTS [facility]; Protocol Insulin Aspart (Novolog) 0 unit SC ACHS [facility]; Protocol Last Admin: 05/05/18 08:30 Dose: 1 units Metoprolol Tartrate (Lopressor) 25 mg PO BID [facility] Last Admin: 05/05/18 09:02 Dose: 25 mg Mupirocin (Bactroban Ointment) 0 gm TOP DAILY [facility] Oxycodone/Acetaminophen (Percocet 5/325 Mg Tab) 1 tab PO Q4H PRN PRN Reason: Pain, severe (8-10) Stop: 05/06/18 20:09 Rosuvastatin Calcium (Crestor) 10 mg PO HS [facility] Last Admin: 05/04/18 21:37 Dose: 10 mg Tamsulosin HCl (Flomax) 0.4 mg PO DAILY [facility] Last Admin: 05/05/18 09:02 Dose: 0.4 mg - Labs Labs: 05/03/18 15:51 05/03/18 15:51 PT 14.7 SECONDS (9.7-12.2) H 05/04/18 11:17 INR 1.3 05/04/18 11:17 APTT 34 SECONDS (21-34) 05/04/18 11:17 - Constitutional Appears: Cachectic - Head Exam Head Exam: ATRAUMATIC - Neck Exam Neck Exam: Full ROM, Normal Inspection - Respiratory Exam Respiratory Exam: NORMAL BREATHING PATTERN - Extremities Exam Additional comments: patient lying on right side with hips and knees flexed dressing changed sacral decub +serous drainage, saturated patient with limited ROM to hips/knees, but no pain with passive left hip motion, compression/distraction - Neurological Exam Neurological Exam: Awake Additional comments: light touch intact to BLE - Psychiatric Exam Psychiatric exam: Normal Affect, Normal Mood - Skin Skin Exam: Dry, Intact (left hip), Normal Color, Warm Assessment and Plan (1) Osteoarthritis of left hip Assessment & Plan: At this time, patient complaining of pain in heels and from sacral wound, no hip pain patient is not a surgical candidate at this time for hip replacement surgery no fracture on CT +blood cultures clinically does not appear any left hip infection recommend PT/OT VTE proph MRI left hip per Dr. Weiner no orthopedic intervention planned at this time d/w Dr. Weiner, agrees with above Status: Acute
[2018-05-05 12:06] LABS: BASO % 0.1 % (0.0-2.0); EOS % 0.3 % (0.0-4.0); HEMOGLOBIN 9.7 g/dL (12.0-18.0); LYMPH # 0.2 K/uL (1.0-4.3); LYMPH % 1.5 % (20.0-40.0); MEAN CELL VOLUME 97.5 fL (80.0-94.0); MEAN CORPUSCULAR HEMOGLOBIN 31.4 pg (27.0-31.0); MEAN CORPUSCULAR HGB CONC 32.1 g/dL (33.0-37.0); MONO # 0.9 K/uL (0.0-0.8); MONO % 5.8 % (0.0-10.0); NEUT # 13.5 K/uL (1.8-7.0); NEUT % 92.3 % (50.0-75.0); PLATELET COUNT 174 K/uL (130-400); RBC 3.09 Mil/uL (4.40-5.90); RED CELL DISTRIBUTION WIDTH 16.4 % (11.5-14.5); WHITE BLOOD COUNT 14.6 K/uL (4.8-10.8)
[2018-05-05 12:27] LABS: ALB/GLOB RATIO 0.6 (1.0-2.1); ALBUMIN 2.5 g/dL (3.5-5.0); CALCIUM 8.6 mg/dl (8.6-10.4)
[2018-05-05 12:45] LABS: LYMPHOCYTE 1 % (20-40); MONOCYTE 5 % (0-10); NEUTROPHIL 94 % (50-75); PLATELET ESTIMATE NORMAL (NORMAL); TOTAL CELLS COUNTED 100
[2018-05-05 12:47] LABS: ANISOCYTOSIS SLIGHT; HYPOCHROMIC SLIGHT; MICROCYTOSIS SLIGHT; POIKILOCYTOSIS SLIGHT; TARGET CELLS SLIGHT
--- NOTE | 2018-05-05 14:54 | RAD ---
Date of service: 05/05/2018 PROCEDURE: Left Ankle Radiographs. HISTORY: left ankle ulcer COMPARISON: None available. FINDINGS: BONES: Bone alignment is normal. There is diffuse bone demineralization. There is no acute displaced fracture or bone destruction. There is a small plantar calcaneal spur. There is a prominent dorsal calcaneal enthesophyte. JOINTS: Normal. No osteoarthritis. Ankle mortise maintained. Talar dome intact SOFT TISSUES: Normal. OTHER FINDINGS: There are advanced atherosclerotic vascular calcifications. IMPRESSION: No acute displaced fracture or dislocation.
[2018-05-05] MEDS ORDERED: Iodixanol 320 MG/ML 100 ML BOTTLE IV ONE (15:06)
--- NOTE | 2018-05-05 15:15 | CP.PCM.PN ---
Subjective - Date & Time of Evaluation Date of Evaluation: 05/05/18 Time of Evaluation: 15:12 - Subjective Subjective: stable dialysis /- UF 2300ml less dyspneic + blood and wound cultures; on IV ABs left LE warm; wound care proceeding awake, weak Objective - Vital Signs/Intake and Output Vital Signs (last 24 hours): Temp Pulse Resp BP Pulse Ox 98.1 F 85 20 150/75 96 05/05/18 07:52 05/05/18 09:01 05/05/18 07:52 05/05/18 09:02 05/05/18 07:52 Intake and Output: 05/05/18 05/05/18 06:59 18:59 Intake Total 500 Balance 500 - Medications Medications: Current Medications Apixaban (Eliquis) 2.5 mg PO BID [facility] Last Admin: 05/05/18 09:02 Dose: 2.5 mg Calcium Acetate (Phoslo) 1,334 mg PO TIDCC [facility] Last Admin: 05/05/18 12:12 Dose: 1,334 mg Docusate Sodium (Colace) 100 mg PO BID PRN PRN Reason: Constipation Piperacillin Sod/Tazobactam (Sod 2.25 gm/ Sodium Chloride) 100 mls @ 200 mls/hr IVPB Q12H [facility]; Protocol Last Admin: 05/05/18 09:54 Dose: 200 mls/hr Vancomycin HCl 500 mg/ Sodium (Chloride) 100 mls @ 100 mls/hr IVPB TTS [facility]; Protocol Insulin Aspart (Novolog) 0 unit SC ACHS [facility]; Protocol Last Admin: 05/05/18 12:13 Dose: 2 units Metoprolol Tartrate (Lopressor) 25 mg PO BID [facility] Last Admin: 05/05/18 09:02 Dose: 25 mg Mupirocin (Bactroban Ointment) 0 gm TOP DAILY [facility] Oxycodone/Acetaminophen (Percocet 5/325 Mg Tab) 1 tab PO Q4H PRN PRN Reason: Pain, severe (8-10) Stop: 05/06/18 20:09 Rosuvastatin Calcium (Crestor) 10 mg PO HS [facility] Last Admin: 05/04/18 21:37 Dose: 10 mg Tamsulosin HCl (Flomax) 0.4 mg PO DAILY [facility] Last Admin: 05/05/18 09:02 Dose: 0.4 mg - Labs Labs: 05/05/18 11:53 05/05/18 11:53 PT 14.7 SECONDS (9.7-12.2) H 05/04/18 11:17 INR 1.3 05/04/18 11:17 APTT 34 SECONDS (21-34) 05/04/18 11:17 - Constitutional Appears: No Acute Distress, Chronically Ill - Head Exam Head Exam: ATRAUMATIC, NORMAL INSPECTION - Eye Exam Eye Exam: EOMI, Normal appearance - Neck Exam Neck Exam: Normal Inspection. absent: Tenderness - Respiratory Exam Respiratory Exam: Clear to Ausculation Bilateral, NORMAL BREATHING PATTERN - Cardiovascular Exam Cardiovascular Exam: REGULAR RHYTHM, +S1 - GI/Abdominal Exam GI & Abdominal Exam: Soft. absent: Tenderness - Extremities Exam Extremities Exam: Normal Inspection. absent: Tenderness - Neurological Exam Neurological Exam: Awake, CN II-XII Intact - Skin Skin Exam: Dry, Warm Assessment and Plan (1) Cellulitis and abscess of left leg Status: Acute (2) Cardiomyopathy Status: Acute (3) PVD (peripheral vascular disease) Status: Acute (4) PVD (peripheral vascular disease) Status: Acute (5) ESRD (end stage renal disease) on dialysis Status: Chronic (6) Non-insulin dependent type 2 diabetes mellitus Status: Chronic - Assessment and Plan (Free Text) Plan: Dialysis TTS with adequate fluid removal IV ABs left LE wound care Add EPO
[2018-05-05] MEDS ORDERED: Iodixanol 320 mg/ml 150 ml Bottle IV ONE (15:34)
--- NOTE | 2018-05-05 17:16 | CP.PCM.PN ---
Subjective - Date & Time of Evaluation Date of Evaluation: 05/05/18 Time of Evaluation: 08:00 - Subjective Subjective: remains weak lethargic and bedrisdden no resp complaints blood and wound cultures positive IV rx in progress podiatry on board consider MRI, vascular studies pending Objective - Vital Signs/Intake and Output Vital Signs (last 24 hours): Temp Pulse Resp BP Pulse Ox 98.1 F 85 20 125/52 L 95 05/05/18 16:05 05/05/18 16:41 05/05/18 16:05 05/05/18 16:05 05/05/18 16:05 Intake and Output: 05/05/18 05/05/18 06:59 18:59 Intake Total 500 Balance 500 - Medications Medications: Current Medications Apixaban (Eliquis) 2.5 mg PO BID [facility] Last Admin: 05/05/18 09:02 Dose: 2.5 mg Calcium Acetate (Phoslo) 1,334 mg PO TIDCC [facility] Last Admin: 05/05/18 12:12 Dose: 1,334 mg Docusate Sodium (Colace) 100 mg PO BID PRN PRN Reason: Constipation Epoetin Linden (Procrit) 10,000 unit IV TTS [facility] Piperacillin Sod/Tazobactam (Sod 2.25 gm/ Sodium Chloride) 100 mls @ 200 mls/hr IVPB Q12H [facility]; Protocol Last Admin: 05/05/18 09:54 Dose: 200 mls/hr Vancomycin HCl 500 mg/ Sodium (Chloride) 100 mls @ 100 mls/hr IVPB TTS [facility]; Protocol Insulin Aspart (Novolog) 0 unit SC ACHS [facility]; Protocol Last Admin: 05/05/18 12:13 Dose: 2 units Metoprolol Tartrate (Lopressor) 25 mg PO BID [facility] Last Admin: 05/05/18 09:02 Dose: 25 mg Mupirocin (Bactroban Ointment) 0 gm TOP DAILY [facility] Oxycodone/Acetaminophen (Percocet 5/325 Mg Tab) 1 tab PO Q4H PRN PRN Reason: Pain, severe (8-10) Stop: 05/06/18 20:09 Rosuvastatin Calcium (Crestor) 10 mg PO HS [facility] Last Admin: 05/04/18 21:37 Dose: 10 mg Tamsulosin HCl (Flomax) 0.4 mg PO DAILY [facility] Last Admin: 05/05/18 09:02 Dose: 0.4 mg - Labs Labs: 05/05/18 11:53 05/05/18 11:53 PT 14.7 SECONDS (9.7-12.2) H 05/04/18 11:17 INR 1.3 05/04/18 11:17 APTT 34 SECONDS (21-34) 05/04/18 11:17 - Constitutional Appears: Well - Head Exam Head Exam: ATRAUMATIC, NORMAL INSPECTION, NORMOCEPHALIC - Eye Exam Eye Exam: EOMI, Normal appearance, PERRL Pupil Exam: NORMAL ACCOMODATION, PERRL - ENT Exam ENT Exam: Mucous Membranes Moist, Normal Exam - Neck Exam Neck Exam: Full ROM, Normal Inspection. absent: Lymphadenopathy - Respiratory Exam Respiratory Exam: Clear to Ausculation Bilateral, NORMAL BREATHING PATTERN - Cardiovascular Exam Cardiovascular Exam: REGULAR RHYTHM, +S1, +S2. absent: Murmur - GI/Abdominal Exam GI & Abdominal Exam: Soft, Normal Bowel Sounds. absent: Tenderness - Rectal Exam Rectal Exam: NORMAL INSPECTION - Extremities Exam Extremities Exam: Full ROM, Pedal Edema, Tenderness. absent: Joint Swelling, Normal Capillary Refill, Normal Inspection - Back Exam Back Exam: NORMAL INSPECTION - Neurological Exam Neurological Exam: Alert, Awake, CN II-XII Intact, Normal Gait, Oriented x3 - Psychiatric Exam Psychiatric exam: Normal Affect, Normal Mood - Skin Skin Exam: Dry, Erythema, Warm. absent: Normal Color Assessment and Plan - Assessment and Plan (Free Text) Plan: blood and wound cultures positive IV rx in progress podiatry on board consider MRI, vascular studies pending
--- NOTE | 2018-05-05 17:25 | CP.PCM.CON ---
History of Present Illness - History of Present Illness History of Present Illness: Vascular Surgery Consult Re: nonhealing LLE ulcer HPI: 73M being seen by Dr. Cavanaugh's service for chronic ulcerations. He is currently in the hospital after sustaining a fall 2 weeks ago where he hit his L hip and his head. Reports pain and discomfort to left hip when he is moved but denies localized pain at the ankle ulcer and distal left leg. He had an angioplasty back in [place] [address] Macias. Podiatry has requested a reevaluati on of his LE vasculature. Denies Fever, chills, SOB, chest pain , N/V, abd pain, numbness, tingling. PMH: DM, HTN, ESRD, CHF, PAD, Afib, HLD PSH: AV fistula, cataract surgery, multiple wound debridements with skin grafts to left ankle and foot ulcers SH: No tobacco, EtOH, or drug use. FH: Non contributory All: NKDA Meds: See JUN, on eliquis Review of Systems - Review of Systems All systems: reviewed and no additional remarkable complaints except (as per HPI) Past Patient History - Infectious Disease Hx of Infectious Diseases: None - Tetanus Immunizations Tetanus Immunization: Unknown - Past Medical History & Family History Past Medical History?: Yes Past Family History: Reviewed and not pertinent - Past Social History Smoking Status: Never Smoked Alcohol: Occasional Drugs: Denies Home Situation {Lives}: With Family Domestic Violence: Negative - CARDIAC Hx Cardia Arrhythmia: Yes (A FIB/FLUTTER) Hx Congestive Heart Failure: Yes Hx Hypercholesterolemia: Yes Hx Hypertension: Yes - PULMONARY Hx Respiratory Disorders: No - NEUROLOGICAL Hx Neurological Disorder: No - HEENT Hx HEENT Problems: Yes Hx Cataracts: Yes (BILAT.) - RENAL Hx Chronic Kidney Disease: Yes Hx Dialysis: Yes - ENDOCRINE/METABOLIC Hx Diabetes Mellitus Type 2: Yes - HEMATOLOGICAL/ONCOLOGICAL Hx Blood Disorders: No Hx Blood Transfusions: Yes - INTEGUMENTARY Hx Dermatological Problems: No - MUSCULOSKELETAL/RHEUMATOLOGICAL Hx Falls: Yes (trip and fall at home 2 w ago) Hx Osteoarthritis: Yes - GASTROINTESTINAL Hx Gastrointestinal Disorders: Yes Other/Comment: BLOOD IN STOOL - GENITOURINARY/GYNECOLOGICAL Hx Genitourinary Disorders: No Hx Hematuria: Yes Hx Prostate Problems: Yes Hx Urinary Tract Infection: Yes - PSYCHIATRIC Hx Psychophysiologic Disorder: No Hx Substance Use: No - SURGICAL HISTORY Hx Surgeries: Yes Hx Arteriovenous Shunt: Yes (AV FISTULA RIGHT ARM) Hx Cataract Extraction: Yes (BILAT.) Hx Eye Surgery: Yes (LEFT EYE) Other/Comment: SKIN GRAFT LEFT FOOT - ANESTHESIA Hx Anesthesia: Yes Hx Anesthesia Reactions: No Hx Malignant Hyperthermia: No Meds Allergies/Adverse Reactions: Allergies Allergy/AdvReac Type Severity Reaction Status Date / Time No Known Allergies Allergy Verified 02/18/18 09:18 - Medications Medications: Current Medications Apixaban (Eliquis) 2.5 mg PO BID [facility] Last Admin: 05/05/18 09:02 Dose: 2.5 mg Calcium Acetate (Phoslo) 1,334 mg PO TIDCC [facility] Last Admin: 05/05/18 12:12 Dose: 1,334 mg Docusate Sodium (Colace) 100 mg PO BID PRN PRN Reason: Constipation Epoetin Linden (Procrit) 10,000 unit IV TTS [facility] Piperacillin Sod/Tazobactam (Sod 2.25 gm/ Sodium Chloride) 100 mls @ 200 mls/hr IVPB Q12H [facility]; Protocol Last Admin: 05/05/18 09:54 Dose: 200 mls/hr Vancomycin HCl 500 mg/ Sodium (Chloride) 100 mls @ 100 mls/hr IVPB TTS [facility]; Protocol Insulin Aspart (Novolog) 0 unit SC ACHS [facility]; Protocol Last Admin: 05/05/18 12:13 Dose: 2 units Metoprolol Tartrate (Lopressor) 25 mg PO BID [facility] Last Admin: 05/05/18 09:02 Dose: 25 mg Mupirocin (Bactroban Ointment) 0 gm TOP DAILY [facility] Oxycodone/Acetaminophen (Percocet 5/325 Mg Tab) 1 tab PO Q4H PRN PRN Reason: Pain, severe (8-10) Stop: 05/06/18 20:09 Rosuvastatin Calcium (Crestor) 10 mg PO HS [facility] Last Admin: 05/04/18 21:37 Dose: 10 mg Tamsulosin HCl (Flomax) 0.4 mg PO DAILY [facility] Last Admin: 05/05/18 09:02 Dose: 0.4 mg Physical Exam - Constitutional Appears: Non-toxic, No Acute Distress - Head Exam Head Exam: ATRAUMATIC, NORMOCEPHALIC - Eye Exam Eye Exam: EOMI. absent: Scleral icterus - ENT Exam ENT Exam: Mucous Membranes Moist Additional comments: trachea midline - Respiratory Exam Respiratory Exam: NORMAL BREATHING PATTERN. absent: Respiratory Distress - Cardiovascular Exam Cardiovascular Exam: +S1, +S2. absent: Bradycardia, Tachycardia - GI/Abdominal Exam GI & Abdominal Exam: Soft. absent: Distended, Tenderness - Rectal Exam Rectal Exam: Deferred - Extremities Exam Extremities exam: Negative for: calf tenderness, pedal edema, tenderness Additional comments: ~3cm Open ulceration noted to left lateral malleolus. Malodorous. No purulence or fluctuance. Additional transparent fluid-filled blisters noted to dorsum of left foot and left lower leg. Stage 2 pressure ulceration to left heel. DP/PT pulses palpable 2/4 - Back Exam Back exam: absent: CVA tenderness (L), CVA tenderness (R) - Neurological Exam Neurological exam: Alert, Oriented x3 - Skin Skin Exam: Dry, Warm Results - Vital Signs Recent Vital Signs: Last Vital Signs Temp 98.1 F 05/05/18 16:05 Pulse 85 05/05/18 16:41 Resp 20 05/05/18 16:05 BP 125/52 L 05/05/18 16:05 Pulse Ox 95 05/05/18 16:05 - Labs Result Diagrams: 05/05/18 11:53 05/05/18 11:53 Labs: Laboratory Results - last 24 hr 05/04/18 05/04/18 05/04/18 16:26 18:05 21:11 WBC RBC Hgb Hct MCV MCH MCHC RDW Plt Count MPV Neut % (Auto) Lymph % (Auto) Bledsoe % (Auto) Eos % (Auto) Baso % (Auto) Neut # (Auto) Lymph # (Auto) Bledsoe # (Auto) Eos # (Auto) Baso # (Auto) Neutrophils % (Manual) Lymphocytes % (Manual) Monocytes % (Manual) Platelet Estimate Hypochromasia (manual) Poikilocytosis (manual Anisocytosis (manual) Microcytosis (manual) Target Cells Sodium Potassium Chloride Carbon Dioxide Anion Gap BUN Creatinine Est GFR ( Amer) Est GFR (Non-Af Amer) POC Glucose (mg/dL) 162 H 165 H 190 H Random Glucose Calcium Total Bilirubin AST ALT Alkaline Phosphatase Total Protein Albumin Globulin Albumin/Globulin Ratio 05/05/18 05/05/18 05/05/18 06:18 11:10 11:53 WBC 14.6 H RBC 3.09 L Hgb 9.7 L Hct 30.1 L MCV 97.5 H MCH 31.4 H MCHC 32.1 L RDW 16.4 H Plt Count 174 MPV 10.0 Neut % (Auto) 92.3 H Lymph % (Auto) 1.5 L Bledsoe % (Auto) 5.8 Eos % (Auto) 0.3 Baso % (Auto) 0.1 Neut # (Auto) 13.5 H Lymph # (Auto) 0.2 L Bledsoe # (Auto) 0.9 H Eos # (Auto) 0.0 Baso # (Auto) 0.0 Neutrophils % (Manual) 94 H Lymphocytes % (Manual) 1 L Monocytes % (Manual) 5 Platelet Estimate Normal Hypochromasia (manual) Slight Poikilocytosis (manual Slight Anisocytosis (manual) Slight Microcytosis (manual) Slight Target Cells Slight Sodium Potassium Chloride Carbon Dioxide Anion Gap BUN Creatinine Est GFR ( Amer) Est GFR (Non-Af Amer) POC Glucose (mg/dL) 162 H 237 H Random Glucose Calcium Total Bilirubin AST ALT Alkaline Phosphatase Total Protein Albumin Globulin Albumin/Globulin Ratio 05/05/18 05/05/18 11:53 16:21 WBC RBC Hgb Hct MCV MCH MCHC RDW Plt Count MPV Neut % (Auto) Lymph % (Auto) Bledsoe % (Auto) Eos % (Auto) Baso % (Auto) Neut # (Auto) Lymph # (Auto) Bledsoe # (Auto) Eos # (Auto) Baso # (Auto) Neutrophils % (Manual) Lymphocytes % (Manual) Monocytes % (Manual) Platelet Estimate Hypochromasia (manual) Poikilocytosis (manual Anisocytosis (manual) Microcytosis (manual) Target Cells Sodium 134 Potassium 4.3 Chloride 95 L Carbon Dioxide 30 Anion Gap 13 BUN 54 H Creatinine 5.6 H Est GFR ( Amer) 12 Est GFR (Non-Af Amer) 10 POC Glucose (mg/dL) 239 H Random Glucose 212 H D Calcium 8.6 Total Bilirubin 0.9 AST 26 ALT 18 L Alkaline Phosphatase 141 H Total Protein 6.4 Albumin 2.5 L Globulin 3.9 Albumin/Globulin Ratio 0.6 L Assessment & Plan - Assessment and Plan (Free Text) Assessment: 73M with chronic nonhealing LLE ulcer Plan: F/U CTA aorta with iliofem runoff D/W Dr. Gilberto Mills PGY4
--- NOTE | 2018-05-05 23:16 | CP.PCM.PN ---
Subjective - Date & Time of Evaluation Date of Evaluation: 05/05/18 Time of Evaluation: 20:00 - Subjective Subjective: Patient feels better, with better appetite, and clearing cellulitis of both lower legs. On IV antibiotics ( Vanco and Zosyn). Objective - Vital Signs/Intake and Output Vital Signs (last 24 hours): Temp Pulse Resp BP Pulse Ox 98.1 F 85 20 127/63 95 05/05/18 16:05 05/05/18 16:41 05/05/18 16:05 05/05/18 17:45 05/05/18 16:05 - Medications Medications: Current Medications Apixaban (Eliquis) 2.5 mg PO BID [facility] Last Admin: 05/05/18 17:43 Dose: 2.5 mg Calcium Acetate (Phoslo) 1,334 mg PO TIDCC [facility] Last Admin: 05/05/18 17:43 Dose: 1,334 mg Docusate Sodium (Colace) 100 mg PO BID PRN PRN Reason: Constipation Epoetin Linden (Procrit) 10,000 unit IV TTS [facility] Piperacillin Sod/Tazobactam (Sod 2.25 gm/ Sodium Chloride) 100 mls @ 200 mls/hr IVPB Q12H [facility]; Protocol Last Admin: 05/05/18 22:00 Dose: 200 mls/hr Vancomycin HCl 500 mg/ Sodium (Chloride) 100 mls @ 100 mls/hr IVPB TTS [facility]; Protocol Insulin Aspart (Novolog) 0 unit SC ACHS [facility]; Protocol Last Admin: 05/05/18 21:56 Dose: Not Given Metoprolol Tartrate (Lopressor) 25 mg PO BID [facility] Last Admin: 05/05/18 17:45 Dose: 25 mg Mupirocin (Bactroban Ointment) 0 gm TOP DAILY [facility] Oxycodone/Acetaminophen (Percocet 5/325 Mg Tab) 1 tab PO Q4H PRN PRN Reason: Pain, severe (8-10) Stop: 05/06/18 20:09 Rosuvastatin Calcium (Crestor) 10 mg PO HS [facility] Last Admin: 05/05/18 21:59 Dose: 10 mg Tamsulosin HCl (Flomax) 0.4 mg PO DAILY [facility] Last Admin: 05/05/18 09:02 Dose: 0.4 mg - Labs Labs: 05/05/18 11:53 05/05/18 11:53 PT 14.7 SECONDS (9.7-12.2) H 05/04/18 11:17 INR 1.3 05/04/18 11:17 APTT 34 SECONDS (21-34) 05/04/18 11:17 - Constitutional Appears: No Acute Distress, Chronically Ill - Head Exam Head Exam: NORMOCEPHALIC - Eye Exam Eye Exam: Normal appearance - ENT Exam ENT Exam: Normal Exam - Neck Exam Neck Exam: Normal Inspection - Respiratory Exam Respiratory Exam: Rhonchi - Cardiovascular Exam Cardiovascular Exam: Irregular Rhythm - GI/Abdominal Exam GI & Abdominal Exam: Soft, Normal Bowel Sounds - Rectal Exam Rectal Exam: Deferred - Exam Exam: NORMAL INSPECTION - Extremities Exam Additional comments: Cellulitis of the lower legs markedly improved. - Back Exam Back Exam: NORMAL INSPECTION - Neurological Exam Neurological Exam: Alert, Awake, Oriented x3 - Psychiatric Exam Psychiatric exam: Anxious Assessment and Plan (1) Fall Status: Acute (2) Contusion of head Status: Acute (3) Contusion of hip, left Status: Acute (4) Bilateral lower leg cellulitis Assessment & Plan: On IV antibiotics Status: Acute (5) Atrial fibrillation Status: Chronic (6) ESRD on hemodialysis Status: Chronic (7) Uncontrolled diabetes mellitus Status: Chronic (8) Bilateral cellulitis of lower leg Status: Acute
[2018-05-06 07:10] LABS: HEMOGLOBIN 9.6 g/dL (12.0-18.0); MEAN CELL VOLUME 97.2 fL (80.0-94.0); MEAN CORPUSCULAR HGB CONC 31.8 g/dL (33.0-37.0); MEAN PLATELET VOLUME 10.1 fL (7.2-11.7); RBC 3.12 Mil/uL (4.40-5.90); RED CELL DISTRIBUTION WIDTH 16.7 % (11.5-14.5); WHITE BLOOD COUNT 16.4 K/uL (4.8-10.8)
[2018-05-06 08:06] LABS: ALB/GLOB RATIO 0.6 (1.0-2.1); ALBUMIN 2.5 g/dL (3.5-5.0); CALCIUM 8.9 mg/dl (8.6-10.4)
[2018-05-06] MEDS: (Novolog) Insulin Aspart, Recombinant 100 u/ml 10 ml vial SC SCH ×4 (08:30→22:45)
--- NOTE | 2018-05-06 10:16 | CP.PCM.PN ---
Subjective - Date & Time of Evaluation Date of Evaluation: 05/06/18 Time of Evaluation: 10:14 - Subjective Subjective: 73M being seen by Dr. Cavanaugh's service for chronic ulcerations. He is currently in the hospital after sustaining a fall 2 weeks ago where he hit his L hip and his head. Reports pain and discomfort to left hip when he is moved but denies l ocalized pain at the ankle ulcer and distal left leg. He had an angioplasty back in [place] [address] Macias. Podiatry has requested a reevaluation of his LE vasculature. Denies Fever, chills, SOB, chest pain , N/V, abd pain, numbness, tingling. PMH: DM, HTN, ESRD, CHF, PAD, Afib, HLD PSH: AV fistula, cataract surgery, multiple wound debridements with skin grafts to left ankle and foot ulcers SH: No tobacco, EtOH, or drug use. FH: Non contributory All: NKDA Meds: See JUN, on eliquis 05/06/18 Notes reviewed Returns from MRI scan Feels weak as he has not had breakfast No cp or palp No sob or cough NO n/v/d No pain No overnight events reported 10 point ros negative other than reported above Objective - Vital Signs/Intake and Output Vital Signs (last 24 hours): Temp Pulse Resp BP Pulse Ox 97.8 F 91 H 20 142/70 95 05/06/18 08:07 05/06/18 08:07 05/06/18 08:07 05/06/18 08:07 05/06/18 08:07 Intake and Output: 05/06/18 05/06/18 06:59 18:59 Intake Total 500 Balance 500 - Medications Medications: Current Medications Apixaban (Eliquis) 2.5 mg PO BID [facility] Last Admin: 05/05/18 17:43 Dose: 2.5 mg Calcium Acetate (Phoslo) 1,334 mg PO TIDCC [facility] Last Admin: 05/06/18 08:53 Dose: 1,334 mg Docusate Sodium (Colace) 100 mg PO BID PRN PRN Reason: Constipation Epoetin Linden (Procrit) 10,000 unit IV TTS [facility] Piperacillin Sod/Tazobactam (Sod 2.25 gm/ Sodium Chloride) 100 mls @ 200 mls/hr IVPB Q12H [facility]; Protocol Last Admin: 05/05/18 22:00 Dose: 200 mls/hr Vancomycin HCl 500 mg/ Sodium (Chloride) 100 mls @ 100 mls/hr IVPB TTS [facility]; Protocol Insulin Aspart (Novolog) 0 unit SC ACHS [facility]; Protocol Last Admin: 05/06/18 08:30 Dose: 3 units Metoprolol Tartrate (Lopressor) 25 mg PO BID [facility] Last Admin: 05/05/18 17:45 Dose: 25 mg Mupirocin (Bactroban Ointment) 0 gm TOP DAILY [facility] Oxycodone/Acetaminophen (Percocet 5/325 Mg Tab) 1 tab PO Q4H PRN PRN Reason: Pain, severe (8-10) Stop: 05/06/18 20:09 Rosuvastatin Calcium (Crestor) 10 mg PO HS [facility] Last Admin: 05/05/18 21:59 Dose: 10 mg Tamsulosin HCl (Flomax) 0.4 mg PO DAILY [facility] Last Admin: 05/05/18 09:02 Dose: 0.4 mg - Labs Labs: 05/06/18 07:02 05/06/18 07:02 PT 14.7 SECONDS (9.7-12.2) H 05/04/18 11:17 INR 1.3 05/04/18 11:17 APTT 34 SECONDS (21-34) 05/04/18 11:17 - Constitutional Appears: Non-toxic, Cachectic - Head Exam Head Exam: ATRAUMATIC, NORMOCEPHALIC - Eye Exam Eye Exam: EOMI, Normal appearance - ENT Exam ENT Exam: Mucous Membranes Moist, Normal Oropharynx - Respiratory Exam Respiratory Exam: absent: Rales, Rhonchi, Wheezes - Cardiovascular Exam Cardiovascular Exam: +S1, +S2. absent: JVD, Rubs - GI/Abdominal Exam GI & Abdominal Exam: Soft, Normal Bowel Sounds - Extremities Exam Extremities Exam: absent: Joint Swelling, Pedal Edema - Neurological Exam Neurological Exam: Alert, Awake - Skin Skin Exam: Dry, Warm Additional comments: Dressings over foot wound Assessment and Plan (1) Anemia Status: Acute (2) Bilateral cellulitis of lower leg Status: Acute (3) PVD (peripheral vascular disease) Status: Acute (4) ESRD on hemodialysis Status: Chronic (5) Uncontrolled diabetes mellitus Status: Chronic (6) ESRD (end stage renal disease) on dialysis Status: Chronic - Assessment and Plan (Free Text) Assessment: Dialysis scheduled today UF as tolerated MARIUM with dialysis Monitor bp on hd Abx as ordered Wound care by podiatry Continue current care
--- NOTE | 2018-05-06 10:27 | CP.PCM.PN ---
Subjective - Date & Time of Evaluation Date of Evaluation: 05/06/18 Time of Evaluation: 10:27 - Subjective Subjective: Podiatry Progress Note: Dr. Cavanaugh 73 year old male patient examined and evaluated at bedside this morning. Patient resting comfortably in bed and in NAD. Patient states that he had just returned from obtaining his MRI for his hip. He states that his ulceration hurts during dressing changes. Denies N/V/F/SOB/CP/Chills. Objective - Vital Signs/Intake and Output Vital Signs (last 24 hours): Temp Pulse Resp BP Pulse Ox 97.8 F 91 H 20 142/70 95 05/06/18 08:07 05/06/18 08:07 05/06/18 08:07 05/06/18 08:07 05/06/18 08:07 Intake and Output: 05/06/18 05/06/18 06:59 18:59 Intake Total 500 Balance 500 - Medications Medications: Current Medications Apixaban (Eliquis) 2.5 mg PO BID [facility] Last Admin: 05/05/18 17:43 Dose: 2.5 mg Calcium Acetate (Phoslo) 1,334 mg PO TIDCC [facility] Last Admin: 05/06/18 08:53 Dose: 1,334 mg Docusate Sodium (Colace) 100 mg PO BID PRN PRN Reason: Constipation Epoetin Linden (Procrit) 10,000 unit IV TTS [facility] Piperacillin Sod/Tazobactam (Sod 2.25 gm/ Sodium Chloride) 100 mls @ 200 mls/hr IVPB Q12H [facility]; Protocol Last Admin: 05/05/18 22:00 Dose: 200 mls/hr Vancomycin HCl 500 mg/ Sodium (Chloride) 100 mls @ 100 mls/hr IVPB TTS [facility]; Protocol Insulin Aspart (Novolog) 0 unit SC ACHS [facility]; Protocol Last Admin: 05/06/18 08:30 Dose: 3 units Metoprolol Tartrate (Lopressor) 25 mg PO BID [facility] Last Admin: 05/05/18 17:45 Dose: 25 mg Mupirocin (Bactroban Ointment) 0 gm TOP DAILY [facility] Oxycodone/Acetaminophen (Percocet 5/325 Mg Tab) 1 tab PO Q4H PRN PRN Reason: Pain, severe (8-10) Stop: 01/05/19 20:09 Rosuvastatin Calcium (Crestor) 10 mg PO HS [facility] Last Admin: 05/05/18 21:59 Dose: 10 mg Tamsulosin HCl (Flomax) 0.4 mg PO DAILY [facility] Last Admin: 05/05/18 09:02 Dose: 0.4 mg - Labs Labs: 05/06/18 07:02 05/06/18 07:02 PT 14.7 SECONDS (9.7-12.2) H 05/04/18 11:17 INR 1.3 05/04/18 11:17 APTT 34 SECONDS (21-34) 05/04/18 11:17 - Constitutional Appears: Well, Non-toxic, No Acute Distress - Head Exam Head Exam: ATRAUMATIC, NORMOCEPHALIC - Extremities Exam Additional comments: Lower extremity focused exam: Vasc: DP/PT pulses palpable 2/4. Temperature gradient warm to warm. CFT < 3 sec to all digits. No pedal edema noted Derm: Open circular ulceration noted to left lateral malleolus approx 3cm diameter and 0.4cm in depth with 80% fibrotic and 20% granular wound base, with some necrotic tissue noted centrally to wound bed. Macerated wound borders. Active purulent drainage noted with malodor, about 5cc of purulence expressed. No tunneling or undermining, no purulence, no fluctuance. Additional healed ulceration noted to left lateral midfoot with overlying hyperkeratotic tissue. Multiple lanced fluid-filled blisters noted to dorsum of left foot and left lower leg with no underlying open lesions. Stage 2 pressure ulceration to left heel with thin friable erythematous skin with no break in skin noted Neuro: Protective sensation slightly diminished, gross sensation intact Ortho: No tenderness to palpation of left lower extremity ulcerations - Neurological Exam Neurological Exam: Alert, Awake, Oriented x3 - Psychiatric Exam Psychiatric exam: Normal Affect, Normal Mood Assessment and Plan - Assessment and Plan (Free Text) Assessment: 73 y/o male with left lower extremity ulcerations to foot and ankle Plan: Patient seen and evaluated at bedside Discussed patient in [facility] attending Dr. Cavanaugh Wound cx of left ankle; staph aureus ID on board, reccs appreciated Multipodus boots to be worn at all times in bed Left ankle ulcer cleaned with saline and dressed with betadine, DSD Ankle x-rays reviewed- no acute osseous findings are noted Bactroban ordered, podiatry to continue with local wound care Will continue to follow
[2018-05-06] MEDS: Piperacillin/Tazobact 2.25 GM in Sodium Chloride 100 ML IVPB SCH ×2 (11:59→21:59)
[2018-05-06] MEDS: Epoetin Alfa 10,000 unit/ml Dialysis IV SCH (15:54)
--- NOTE | 2018-05-06 15:58 | CT ---
Date of service: 05/05/2018 PROCEDURE: CT Angiography Abdomen, Pelvis and Lower Extremity with Contrast HISTORY: LE vasculature evaluation COMPARISON: CT 08/23/2017 TECHNIQUE: Technique: CT angiography of the abdomen, pelvis and bilateral lower extremities performed in the arterial phase of enhancement. Coronal and sagittal reformats, and well as rotating MIP images of the vessels generated at the workstation. Intravenous contrast dose: 150 cc of Visipaque Radiation dose: Total exam DLP = 1161.91 mGy-cm. This CT exam was performed using one or more of the following dose reduction techniques: Automated exposure control, adjustment of the mA and/or kV according to patient size, and/or use of iterative reconstruction technique. FINDINGS: CT ANGIOGRAPHY: Extensive aortic calcification ABDOMINAL AORTA:: No stenosis. Extensive calcification The entire vascular tree is heavily calcified. This produces some limitation of evaluation of the arterial lumen. MAJOR AORTIC BRANCHES: Celiac [place]: Unremarkable. Superior mesenteric artery: Unremarkable. Inferior mesenteric artery: Unremarkable. Renal arteries: Unremarkable. PELVIC ARTERIES: Right Common Iliac: Unremarkable. Right External Iliac: Unremarkable. Right Internal Iliac: Unremarkable. Left Common Iliac: Unremarkable. Left External Iliac: Unremarkable. Left Internal Iliac: Unremarkable. RIGHT LOWER EXTREMITY ARTERIES: Right Common Femoral: Unremarkable. Right Superficial Femoral: Unremarkable. Right Profunda Femoris: Unremarkable. Right Popliteal:Unremarkable. Right Anterior Tibial: Unremarkable. Right Tibioperoneal Trunk: Unremarkable. Right Posterior Tibial: Unremarkable. Right Peroneal: Unremarkable. Right dorsalis pedis : Unremarkable. LEFT LOWER EXTREMITY ARTERIES: Left Common Femoral: Unremarkable. Left Superficial Femoral: Unremarkable. Left Profunda Femoris: Unremarkable. Left Popliteal: Unremarkable. Left Anterior Tibial: Distal occlusion or severe stenosis with reconstitution Left Tibioperoneal Trunk: Unremarkable. Left Posterior Tibial: Unremarkable. Left Peronea: Unremarkable. Left Dorsalis pedis: Unremarkable. NON-ANGIOGRAPHIC ASPECT OF THE EXAM: LOWER THORAX: Large bilateral pleural effusions and severe ascites LIVER: Unremarkable. No gross lesion or ductal dilatation. GALLBLADDER AND BILE DUCTS: Gallbladder contracted PANCREAS: Unremarkable. No gross lesion or ductal dilatation. SPLEEN: Unremarkable. ADRENALS: Unremarkable. No mass. KIDNEYS AND URETERS: Unremarkable. No hydronephrosis. No solid mass. STOMACH AND BOWEL: Unremarkable. No obstruction. No gross mural thickening. APPENDIX: Normal appendix. PERITONEUM: Unremarkable. No free fluid. No free air. LYMPH NODES: Unremarkable. No enlarged lymph nodes. BLADDER: Mild mural thickening REPRODUCTIVE: Unremarkable. BONES: No acute fracture. OTHER FINDINGS: The report concurs with the preliminary [facility] report IMPRESSION: Extensive vascular calcifications with no significant focal occlusion. Severe ascites and large bilateral pleural effusions. Anasarca.
--- NOTE | 2018-05-06 16:04 | CP.PCM.PN ---
Subjective - Date & Time of Evaluation Date of Evaluation: 05/06/18 Time of Evaluation: 16:01 - Subjective Subjective: Vascular Surgery Progress Note for Dr. Macias 73M seen and evaluated at bedside this morning. No acute events overnight. Patient complains of weakness and left leg pain that causes ambulation difficulties. Denies f/c, n/v/d, SOB, CP, or urinary symptoms. Objective - Vital Signs/Intake and Output Vital Signs (last 24 hours): Temp Pulse Resp BP Pulse Ox 97.0 F L 71 18 99/54 L 98 05/06/18 13:50 05/06/18 15:00 05/06/18 15:30 05/06/18 15:30 05/06/18 13:50 Intake and Output: 05/06/18 05/06/18 06:59 18:59 Intake Total 500 Balance 500 - Medications Medications: Current Medications Apixaban (Eliquis) 2.5 mg PO BID [facility] Last Admin: 05/06/18 10:40 Dose: 2.5 mg Calcium Acetate (Phoslo) 1,334 mg PO TIDCC [facility] Last Admin: 05/06/18 11:53 Dose: 1,334 mg Docusate Sodium (Colace) 100 mg PO BID PRN PRN Reason: Constipation Epoetin Linden (Procrit) 10,000 unit IV TTS [facility] Last Admin: 05/06/18 15:54 Dose: 10,000 unit Piperacillin Sod/Tazobactam (Sod 2.25 gm/ Sodium Chloride) 100 mls @ 200 mls/hr IVPB Q12H [facility]; Protocol Last Admin: 05/06/18 11:59 Dose: 200 mls/hr Vancomycin HCl 500 mg/ Sodium (Chloride) 100 mls @ 100 mls/hr IVPB TTS [facility]; Protocol Last Admin: 05/06/18 10:15 Dose: 100 mls/hr Insulin Aspart (Novolog) 0 unit SC ACHS [facility]; Protocol Last Admin: 05/06/18 12:02 Dose: 4 units Metoprolol Tartrate (Lopressor) 25 mg PO BID [facility] Last Admin: 05/06/18 10:30 Dose: 25 mg Mupirocin (Bactroban Ointment) 0 gm TOP DAILY [facility] Last Admin: 05/06/18 12:00 Dose: 1 applic Oxycodone/Acetaminophen (Percocet 5/325 Mg Tab) 1 tab PO Q4H PRN PRN Reason: Pain, severe (8-10) Stop: 05/06/18 20:09 Last Admin: 05/06/18 11:53 Dose: 1 tab Rosuvastatin Calcium (Crestor) 10 mg PO HS [facility] Last Admin: 05/05/18 21:59 Dose: 10 mg Tamsulosin HCl (Flomax) 0.4 mg PO DAILY [facility] Last Admin: 05/06/18 10:40 Dose: 0.4 mg - Labs Labs: 05/06/18 07:02 05/06/18 07:02 PT 14.7 SECONDS (9.7-12.2) H 05/04/18 11:17 INR 1.3 05/04/18 11:17 APTT 34 SECONDS (21-34) 05/04/18 11:17 - Constitutional Appears: Non-toxic, No Acute Distress - Head Exam Head Exam: ATRAUMATIC, NORMAL INSPECTION, NORMOCEPHALIC - Eye Exam Eye Exam: EOMI - ENT Exam ENT Exam: Mucous Membranes Moist - Respiratory Exam Respiratory Exam: absent: Respiratory Distress - GI/Abdominal Exam GI & Abdominal Exam: Soft, Normal Bowel Sounds. absent: Tenderness - Extremities Exam Extremities Exam: absent: Calf Tenderness Additional comments: nonpalpable left DP/PT pulses - Neurological Exam Neurological Exam: Alert, Awake - Psychiatric Exam Psychiatric exam: Normal Affect, Normal Mood - Skin Skin Exam: Dry, Intact, Normal Color, Warm Assessment and Plan - Assessment and Plan (Free Text) Assessment: 73M w/ peripheral vascular disease CTA shows left anterior tibial distal occlusion. Patient has had previous stents placed 05/25/17. Plan: Monitor pulses of the LE Analgesics PRN Patient will likely need intervention but must be medically optimized prior to any surgical intervention Will continue to follow D/w Dr Gilberto Coello PGY1
--- NOTE | 2018-05-06 18:23 | CP.PCM.PN ---
Subjective - Date & Time of Evaluation Date of Evaluation: 05/06/18 Time of Evaluation: 18:20 - Subjective Subjective: Patient feels better, with better appetite. Left leg wound culture yields MRSA. Patient is now on Zyvox and on isolation. CTA of the leg reveled occlusion of the left anterior tibial artery. Objective - Vital Signs/Intake and Output Vital Signs (last 24 hours): Temp Pulse Resp BP Pulse Ox 97.8 F 73 20 113/51 L 98 05/06/18 17:42 05/06/18 17:42 05/06/18 17:42 05/06/18 17:42 05/06/18 17:42 Intake and Output: 05/06/18 05/06/18 06:59 18:59 Intake Total 500 Balance 500 - Medications Medications: Current Medications Apixaban (Eliquis) 2.5 mg PO BID [facility] Last Admin: 05/06/18 10:40 Dose: 2.5 mg Calcium Acetate (Phoslo) 1,334 mg PO TIDCC [facility] Last Admin: 05/06/18 11:53 Dose: 1,334 mg Docusate Sodium (Colace) 100 mg PO BID PRN PRN Reason: Constipation Epoetin Linden (Procrit) 10,000 unit IV TTS [facility] Last Admin: 05/06/18 15:54 Dose: 10,000 unit Piperacillin Sod/Tazobactam (Sod 2.25 gm/ Sodium Chloride) 100 mls @ 200 mls/hr IVPB Q12H [facility]; Protocol Last Admin: 05/06/18 11:59 Dose: 200 mls/hr Vancomycin HCl 500 mg/ Sodium (Chloride) 100 mls @ 100 mls/hr IVPB TTS [facility]; Protocol Last Admin: 05/06/18 10:15 Dose: 100 mls/hr Insulin Aspart (Novolog) 0 unit SC ACHS [facility]; Protocol Last Admin: 05/06/18 12:02 Dose: 4 units Metoprolol Tartrate (Lopressor) 25 mg PO BID [facility] Last Admin: 05/06/18 10:30 Dose: 25 mg Mupirocin (Bactroban Ointment) 0 gm TOP DAILY [facility] Last Admin: 05/06/18 12:00 Dose: 1 applic Oxycodone/Acetaminophen (Percocet 5/325 Mg Tab) 1 tab PO Q4H PRN PRN Reason: Pain, severe (8-10) Stop: 05/06/18 20:09 Last Admin: 05/06/18 11:53 Dose: 1 tab Rosuvastatin Calcium (Crestor) 10 mg PO HS [facility] Last Admin: 05/05/18 21:59 Dose: 10 mg Tamsulosin HCl (Flomax) 0.4 mg PO DAILY [facility] Last Admin: 05/06/18 10:40 Dose: 0.4 mg - Labs Labs: 05/06/18 07:02 05/06/18 07:02 PT 14.7 SECONDS (9.7-12.2) H 05/04/18 11:17 INR 1.3 05/04/18 11:17 APTT 34 SECONDS (21-34) 05/04/18 11:17 - Constitutional Appears: No Acute Distress, Chronically Ill - Head Exam Head Exam: NORMOCEPHALIC - Eye Exam Eye Exam: Normal appearance - ENT Exam ENT Exam: Normal Exam - Neck Exam Neck Exam: Normal Inspection - Respiratory Exam Respiratory Exam: Clear to Ausculation Bilateral, NORMAL BREATHING PATTERN - Cardiovascular Exam Cardiovascular Exam: REGULAR RHYTHM - GI/Abdominal Exam GI & Abdominal Exam: Soft, Normal Bowel Sounds - Rectal Exam Rectal Exam: Deferred - Extremities Exam Extremities Exam: Normal Inspection - Back Exam Back Exam: NORMAL INSPECTION - Neurological Exam Neurological Exam: Alert, Awake, Oriented x3 - Psychiatric Exam Psychiatric exam: Anxious - Skin Skin Exam: Dry, Intact, Normal Color, Warm Assessment and Plan (1) Fall Status: Acute (2) Contusion of head Status: Acute (3) Contusion of hip, left Status: Acute (4) Bilateral lower leg cellulitis Assessment & Plan: Wound culture yields MRSA. Status: Acute (5) Atrial fibrillation Status: Chronic (6) ESRD on hemodialysis Status: Chronic (7) Uncontrolled diabetes mellitus Status: Chronic
[2018-05-07] MEDS: (Novolog) Insulin Aspart, Recombinant 100 u/ml 10 ml vial SC SCH ×4 (08:25→21:43)
--- NOTE | 2018-05-07 08:35 | CP.PCM.PN ---
Subjective - Date & Time of Evaluation Date of Evaluation: 05/07/18 Time of Evaluation: 08:35 - Subjective Subjective: Vascular Surgery Progress Note for Dr. Macias 73M seen and evaluated at bedside this morning. No acute events overnight. No complaints this morning. Left LE dressing changed. Noted seropurulent drainage from lateral maleoli wound. Denies f/c, n/v/d, SOB, CP, or urinary symptoms. Objective - Vital Signs/Intake and Output Vital Signs (last 24 hours): Temp Pulse Resp BP Pulse Ox 99.1 F 74 20 96/45 L 96 05/07/18 07:00 05/07/18 07:00 05/07/18 07:00 05/07/18 07:00 05/07/18 07:00 - Medications Medications: Current Medications Apixaban (Eliquis) 2.5 mg PO BID [facility] [place] Last Admin: 05/06/18 18:34 Dose: 2.5 mg Calcium Acetate (Phoslo) 1,334 mg PO TIDCC [facility] [place] Last Admin: 05/06/18 18:35 Dose: 1,334 mg Docusate Sodium (Colace) 100 mg PO BID PRN PRN Reason: Constipation Epoetin Linden (Procrit) 10,000 unit IV TTS [facility] [place] Last Admin: 05/06/18 15:54 Dose: 10,000 unit Piperacillin Sod/Tazobactam (Sod 2.25 gm/ Sodium Chloride) 100 mls @ 200 mls/hr IVPB Q12H [facility]; Protocol Last Admin: 05/06/18 21:59 Dose: 200 mls/hr Vancomycin HCl 500 mg/ Sodium (Chloride) 100 mls @ 100 mls/hr IVPB TTS [facility]; Protocol Last Admin: 05/06/18 10:15 Dose: 100 mls/hr Insulin Aspart (Novolog) 0 unit SC ACHS [facility] [place]; Protocol Last Admin: 05/06/18 18:34 Dose: 2 units Metoprolol Tartrate (Lopressor) 25 mg PO BID [facility] [place] Last Admin: 05/06/18 18:34 Dose: 25 mg Mupirocin (Bactroban Ointment) 0 gm TOP DAILY [facility] [place] Last Admin: 05/06/18 12:00 Dose: 1 applic Rosuvastatin Calcium (Crestor) 10 mg PO HS [facility] Last Admin: 05/06/18 21:59 Dose: 10 mg Sitagliptin Phosphate (Januvia) 25 mg PO DAILY [facility] [place] Tamsulosin HCl (Flomax) 0.4 mg PO DAILY [facility] Last Admin: 05/06/18 10:40 Dose: 0.4 mg - Labs Labs: 05/06/18 07:02 05/06/18 07:02 PT 14.7 SECONDS (9.7-12.2) H 05/04/18 11:17 INR 1.3 05/04/18 11:17 APTT 34 SECONDS (21-34) 05/04/18 11:17 - Constitutional Appears: Well, Non-toxic, No Acute Distress - Head Exam Head Exam: ATRAUMATIC, NORMAL INSPECTION, NORMOCEPHALIC - Eye Exam Eye Exam: EOMI - ENT Exam ENT Exam: Mucous Membranes Moist - Respiratory Exam Respiratory Exam: NORMAL BREATHING PATTERN. absent: Respiratory Distress - Extremities Exam Additional comments: left LE lateral maleoli wound with seropurulent drainage, skin excoriations Dressing changed c/d/i - Neurological Exam Neurological Exam: Alert, Awake - Psychiatric Exam Psychiatric exam: Normal Affect, Normal Mood - Skin Skin Exam: Dry, Warm Assessment and Plan - Assessment and Plan (Free Text) Assessment: 73M w/ Left LE nonhealing skin lesion Plan: Continue IV Abx Local wound care with dressing changes Medically optimize patient May require surgical intervention in the future Will continue to follow Further recommendations per Dr. Gilberto Coello PGY1
[2018-05-07 08:41] LABS: BASO % 0.1 % (0.0-2.0); EOS # 0.2 K/uL (0.0-0.7); EOS % 1.2 % (0.0-4.0); HEMOGLOBIN 8.5 g/dL (12.0-18.0); LYMPH # 0.3 K/uL (1.0-4.3); LYMPH % 1.7 % (20.0-40.0); MEAN CELL VOLUME 97.1 fL (80.0-94.0); MEAN CORPUSCULAR HEMOGLOBIN 31.4 pg (27.0-31.0); MEAN CORPUSCULAR HGB CONC 32.3 g/dL (33.0-37.0); MEAN PLATELET VOLUME 9.9 fL (7.2-11.7); MONO # 0.8 K/uL (0.0-0.8); NEUT # 13.9 K/uL (1.8-7.0); PLATELET COUNT 146 K/uL (130-400); RBC 2.72 Mil/uL (4.40-5.90); RED CELL DISTRIBUTION WIDTH 16.9 % (11.5-14.5); WHITE BLOOD COUNT 15.1 K/uL (4.8-10.8)
--- NOTE | 2018-05-07 09:00 | CP.PCM.PN ---
Subjective - Date & Time of Evaluation Date of Evaluation: 05/07/18 Time of Evaluation: 09:00 - Subjective Subjective: Podiatry Progress Note: Dr. Cavanaugh 73 year old male patient examined and evaluated at bedside this morning with attending Dr. Alfredo Cavanaugh. Patient resting comfortably in bed and in NAD. Patient states he is doing better today and his pain to left foot/leg is more controlled. Denies N/V/F/SOB/CP/Chills. Objective - Vital Signs/Intake and Output Vital Signs (last 24 hours): Temp Pulse Resp BP Pulse Ox 99.1 F 74 20 96/45 L 96 05/07/18 07:00 05/07/18 07:00 05/07/18 07:00 05/07/18 07:00 05/07/18 07:00 - Medications Medications: Current Medications Apixaban (Eliquis) 2.5 mg PO BID [facility] Last Admin: 05/06/18 18:34 Dose: 2.5 mg Calcium Acetate (Phoslo) 1,334 mg PO TIDCC [facility] Last Admin: 05/06/18 18:35 Dose: 1,334 mg Docusate Sodium (Colace) 100 mg PO BID PRN PRN Reason: Constipation Epoetin Linden (Procrit) 10,000 unit IV TTS [facility] Last Admin: 05/06/18 15:54 Dose: 10,000 unit Piperacillin Sod/Tazobactam (Sod 2.25 gm/ Sodium Chloride) 100 mls @ 200 mls/hr IVPB Q12H [facility]; Protocol Last Admin: 05/06/18 21:59 Dose: 200 mls/hr Vancomycin HCl 500 mg/ Sodium (Chloride) 100 mls @ 100 mls/hr IVPB TTS [facility]; Protocol Last Admin: 05/06/18 10:15 Dose: 100 mls/hr Insulin Aspart (Novolog) 0 unit SC ACHS [facility]; Protocol Last Admin: 05/06/18 18:34 Dose: 2 units Metoprolol Tartrate (Lopressor) 25 mg PO BID [facility] Last Admin: 05/06/18 18:34 Dose: 25 mg Mupirocin (Bactroban Ointment) 0 gm TOP DAILY [facility] Last Admin: 05/06/18 12:00 Dose: 1 applic Rosuvastatin Calcium (Crestor) 10 mg PO HS [facility] Last Admin: 05/06/18 21:59 Dose: 10 mg Sitagliptin Phosphate (Januvia) 25 mg PO DAILY [facility] Tamsulosin HCl (Flomax) 0.4 mg PO DAILY [facility] Last Admin: 05/06/18 10:40 Dose: 0.4 mg - Labs Labs: 05/07/18 08:17 05/06/18 07:02 PT 14.7 SECONDS (9.7-12.2) H 05/04/18 11:17 INR 1.3 05/04/18 11:17 APTT 34 SECONDS (21-34) 05/04/18 11:17 - Constitutional Appears: Well, Non-toxic, No Acute Distress - Head Exam Head Exam: ATRAUMATIC, NORMOCEPHALIC - Extremities Exam Additional comments: Lower extremity focused exam: Vasc: DP/PT pulses palpable 2/4. Temperature gradient warm to warm. CFT < 3 sec to all digits. No pedal edema noted Derm: Open circular ulceration noted to left lateral malleolus approx 3cm diameter and 0.4cm in depth with 80% fibrotic and 20% granular wound base, with some necrotic tissue noted centrally to wound bed. Macerated wound borders. Active purulent drainage noted with malodor, about 5cc of purulence expressed. No tunneling or undermining, no purulence, no fluctuance. Eschar noted to left lateral midfoot with overlying hyperkeratotic tissue, with about 3 cc of purlence expressed from area. Multiple lanced fluid-filled blisters noted to dorsum of left foot and left lower leg with no underlying open lesions. Stage 2 pressure ulceration to left heel with thin friable erythematous skin with no break in skin noted Neuro: Protective sensation slightly diminished, gross sensation intact Ortho: No tenderness to palpation of left lower extremity ulcerations - Neurological Exam Neurological Exam: Alert, Awake, Oriented x3 - Psychiatric Exam Psychiatric exam: Normal Affect, Normal Mood Assessment and Plan - Assessment and Plan (Free Text) Assessment: 73 y/o male with left lower extremity ulcerations to foot and ankle, infected Plan: Patient seen and evaluated at bedside with attending Dr. Cavanaugh Afebrijasper, WBC 15.1 Wound cx of left ankle; MRSA ID on board, reccs appreciated Vasc on board, reccs appreciated Multipodus boots to be worn at all times in bed Left ankle ulcer cleaned with saline and dressed with DSD Ankle x-rays reviewed- no acute osseous findings are noted Bactroban ordered, podiatry to continue with local wound care Will continue to follow
[2018-05-07 09:05] LABS: ALB/GLOB RATIO 0.6 (1.0-2.1); ALBUMIN 2.1 g/dL (3.5-5.0); CALCIUM 7.9 mg/dl (8.6-10.4)
[2018-05-07] MEDS: Piperacillin/Tazobact 2.25 GM in Sodium Chloride 100 ML IVPB SCH ×2 (10:27→21:44)
[2018-05-07 10:35] LABS: ANISOCYTOSIS SLIGHT; BANDS 3 % (0-2); EOSINOPHIL 1 % (0-4); HYPOCHROMIC SLIGHT; LYMPHOCYTE 1 % (20-40); MONOCYTE 3 % (0-10); NEUTROPHIL 92 % (50-75); PLATELET ESTIMATE NORMAL (NORMAL); TOTAL CELLS COUNTED 100
[2018-05-07 10:36] LABS: TARGET CELLS SLIGHT
--- NOTE | 2018-05-07 23:01 | CP.PCM.PN ---
Subjective - Date & Time of Evaluation Date of Evaluation: 05/07/18 Time of Evaluation: 08:00 - Subjective Subjective: growing MRSA blood / wounds ' Objective - Vital Signs/Intake and Output Vital Signs (last 24 hours): Temp Pulse Resp BP Pulse Ox 99.3 F 88 20 126/61 95 05/07/18 16:00 05/07/18 16:00 05/07/18 16:00 05/07/18 16:00 05/07/18 16:00 - Medications Medications: Current Medications Apixaban (Eliquis) 2.5 mg PO BID REPLACED BY [facility] Last Admin: 05/07/18 10:23 Dose: 2.5 mg Calcium Acetate (Phoslo) 1,334 mg PO TIDCC REPLACED BY [facility] Last Admin: 05/07/18 11:46 Dose: 1,334 mg Docusate Sodium (Colace) 100 mg PO BID PRN PRN Reason: Constipation Epoetin Linden (Procrit) 10,000 unit IV TTS REPLACED BY [facility] Last Admin: 05/06/18 15:54 Dose: 10,000 unit Piperacillin Sod/Tazobactam (Sod 2.25 gm/ Sodium Chloride) 100 mls @ 200 mls/hr IVPB Q12H REPLACED BY [facility]; Protocol Last Admin: 05/07/18 10:27 Dose: 200 mls/hr Vancomycin HCl 500 mg/ Sodium (Chloride) 100 mls @ 100 mls/hr IVPB TTS REPLACED BY [facility]; Protocol Last Admin: 05/06/18 10:15 Dose: 100 mls/hr Insulin Aspart (Novolog) 0 unit SC ACHS REPLACED BY [facility]; Protocol Last Admin: 05/07/18 11:46 Dose: 2 units Metoprolol Tartrate (Lopressor) 25 mg PO BID REPLACED BY [facility] Last Admin: 05/07/18 10:24 Dose: Not Given Mupirocin (Bactroban Ointment) 0 gm TOP DAILY REPLACED BY [facility] Last Admin: 05/07/18 10:23 Dose: 1 applic Rosuvastatin Calcium (Crestor) 10 mg PO HS REPLACED BY [facility] Last Admin: 05/06/18 21:59 Dose: 10 mg Sitagliptin Phosphate (Januvia) 25 mg PO DAILY REPLACED BY [facility] Last Admin: 05/07/18 10:23 Dose: 25 mg Tamsulosin HCl (Flomax) 0.4 mg PO DAILY REPLACED BY [facility] Last Admin: 05/07/18 10:23 Dose: 0.4 mg - Labs Labs: 05/07/18 08:17 05/07/18 08:17 PT 14.7 SECONDS (9.7-12.2) H 05/04/18 11:17 INR 1.3 05/04/18 11:17 APTT 34 SECONDS (21-34) 05/04/18 11:17 - Constitutional Appears: Non-toxic, Chronically Ill - Head Exam Head Exam: NORMOCEPHALIC - Eye Exam Eye Exam: absent: Scleral icterus - ENT Exam ENT Exam: Mucous Membranes Dry, Normal External Ear Exam - Neck Exam Neck Exam: absent: Lymphadenopathy - Respiratory Exam Respiratory Exam: Decreased Breath Sounds - Cardiovascular Exam Cardiovascular Exam: REGULAR RHYTHM - GI/Abdominal Exam GI & Abdominal Exam: Distended, Soft. absent: Tenderness - Rectal Exam Rectal Exam: Deferred - Exam Exam: NORMAL INSPECTION - Extremities Exam Extremities Exam: Pedal Edema. absent: Calf Tenderness Additional comments: Lower extremity focused exam: Vasc: DP/PT pulses palpable 2/4. Temperature gradient warm to warm. CFT < 3 sec to all digits. No pedal edema noted Derm: Open circular ulceration noted to left lateral malleolus approx 3cm diameter and 0.4cm in depth with 80% fibrotic and 20% granular wound base, with some necrotic tissue noted centrally to wound bed. Macerated wound borders. Active purulent drainage noted with malodor, about 5cc of purulence expressed. No tunneling or undermining, no purulence, no fluctuance. Eschar noted to left lateral midfoot with overlying hyperkeratotic tissue, with about 3 cc of purlence expressed from area. Multiple lanced fluid-filled blisters noted to emigdio sum of left foot and left lower leg with no underlying open lesions. Stage 2 pressure ulceration to left heel with thin friable erythematous skin with no break in skin noted Neuro: Protective sensation slightly diminished, gross sensation intact Ortho: No tenderness to palpation of left lower extremity ulcerations - Back Exam Back Exam: absent: CVA tenderness (L), CVA tenderness (R) - Neurological Exam Neurological Exam: Alert, Awake, Oriented x3 - Psychiatric Exam Psychiatric exam: Depressed - Skin Skin Exam: Dry Assessment and Plan (1) Bilateral lower leg cellulitis Status: Acute (2) Cardiomyopathy Status: Acute (3) Cellulitis and abscess of left leg Status: Acute - Assessment and Plan (Free Text) Assessment: lower extremity MRI pending blood and wound + for MRSA IV antuibiotics and wound care as welll as isolation ordered prognosis guarded Vanco reordered
--- NOTE | 2018-05-08 07:51 | CP.PCM.PN ---
Subjective - Date & Time of Evaluation Date of Evaluation: 05/08/18 Time of Evaluation: 09:38 - Subjective Subjective: Patient states he has a little pain in heels. Denies hip pain. Says he is better. Review of Systems - Review of Systems Systems not reviewed;Unavailable: Dementia Objective - Vital Signs/Intake and Output Vital Signs (last 24 hours): Temp Pulse Resp BP Pulse Ox 98.6 F 78 20 122/72 94 L 05/07/18 23:38 05/07/18 23:43 05/07/18 23:38 05/07/18 23:38 05/07/18 23:38 Intake and Output: 05/08/18 05/08/18 06:59 18:59 Intake Total 100 Balance 100 - Medications Medications: Current Medications Apixaban (Eliquis) 2.5 mg PO BID [facility] Last Admin: 05/07/18 19:00 Dose: 2.5 mg Calcium Acetate (Phoslo) 1,334 mg PO TIDCC [facility] Last Admin: 05/07/18 19:00 Dose: 1,334 mg Docusate Sodium (Colace) 100 mg PO BID PRN PRN Reason: Constipation Epoetin Linden (Procrit) 10,000 unit IV TTS [facility] Last Admin: 05/06/18 15:54 Dose: 10,000 unit Piperacillin Sod/Tazobactam (Sod 2.25 gm/ Sodium Chloride) 100 mls @ 200 mls/hr IVPB Q12H [facility]; Protocol Last Admin: 05/07/18 21:44 Dose: 200 mls/hr Vancomycin/Sodium Chloride (Vancomycin 1 Gm/Ns 200 Ml) 1 gm in 200 mls @ 133.333 mls/hr IVPB TTS [facility]; Protocol Stop: 05/14/18 10:01 Insulin Aspart (Novolog) 0 unit SC ACHS [facility]; Protocol Last Admin: 05/07/18 21:43 Dose: Not Given Metoprolol Tartrate (Lopressor) 25 mg PO BID [facility] Last Admin: 05/07/18 19:01 Dose: 25 mg Mupirocin (Bactroban Ointment) 0 gm TOP DAILY [facility] Last Admin: 05/07/18 10:23 Dose: 1 applic Rosuvastatin Calcium (Crestor) 10 mg PO HS [facility] Last Admin: 05/07/18 21:43 Dose: 10 mg Sitagliptin Phosphate (Januvia) 25 mg PO DAILY [facility] Last Admin: 05/07/18 10:23 Dose: 25 mg Sodium Hypochlorite (Dakins Solution 0.25%) 0 ml TOP DAILY [facility] Tamsulosin HCl (Flomax) 0.4 mg PO DAILY [facility] Last Admin: 05/07/18 10:23 Dose: 0.4 mg - Labs Labs: 05/07/18 08:17 05/07/18 08:17 PT 14.7 SECONDS (9.7-12.2) H 05/04/18 11:17 INR 1.3 05/04/18 11:17 APTT 34 SECONDS (21-34) 05/04/18 11:17 - Constitutional Appears: Well, No Acute Distress - Head Exam Head Exam: ATRAUMATIC - Neck Exam Neck Exam: Full ROM, Normal Inspection - Respiratory Exam Respiratory Exam: NORMAL BREATHING PATTERN - Extremities Exam Additional comments: no pain with active or passive ROM B hips sensation intact calves soft NT neg homans - Neurological Exam Neurological Exam: Alert, Awake Neuro motor strength exam: Left Lower Extremity: 4 (left hip/knee) - Psychiatric Exam Psychiatric exam: Normal Affect, Normal Mood - Skin Skin Exam: Dry, Intact (left hip), Normal Color, Warm Assessment and Plan (1) Osteoarthritis of left hip Assessment & Plan: no clinical suspicion of septic arthritis at this time PT/OT when appropriate At this time, patient complaining of pain in heels and from sacral wound, no hip pain patient is not a surgical candidate at this time for hip replacement surgery no fracture on CT +blood cultures VTE proph MRI left hip reviewed, does not change orthopedic mgmt at this time no orthopedic intervention planned at this time d/w Dr. Weiner, agrees with above, patient can follow up as outpatient [phone] Status: Acute Radiology Interpretation - Radiology Interpretation #3 Interpretation: MRI L hip: possible osteopenia, mild djd both hips, mild bilateral hip effus ions, myopathy B thigh muscles, subq edema, moderate free pelive collection, tickened urinary bladder wall, diverticular out-pouching
[2018-05-08] MEDS: (Novolog) Insulin Aspart, Recombinant 100 u/ml 10 ml vial SC SCH ×4 (08:33→21:57)
[2018-05-08] MEDS: Dakin's Topical 0.25%-Half Strength (480 ml) TOP SCH (09:29)
[2018-05-08] MEDS: Piperacillin/Tazobact 2.25 GM in Sodium Chloride 100 ML IVPB SCH ×2 (09:30→22:02)
--- NOTE | 2018-05-08 11:23 | CP.PCM.PN ---
Subjective - Date & Time of Evaluation Date of Evaluation: 05/08/18 Time of Evaluation: 11:20 - Subjective Subjective: +MRSA in blood, wound stable dialysis 1/5 on IV ABs wound care being done now Objective - Vital Signs/Intake and Output Vital Signs (last 24 hours): Temp Pulse Resp BP Pulse Ox 98.3 F 94 H 20 142/63 95 05/08/18 07:00 05/08/18 09:25 05/08/18 07:00 05/08/18 09:30 05/08/18 07:00 Intake and Output: 05/08/18 05/08/18 06:59 18:59 Intake Total 100 Balance 100 - Medications Medications: Current Medications Apixaban (Eliquis) 2.5 mg PO BID [facility] Last Admin: 05/08/18 09:30 Dose: 2.5 mg Calcium Acetate (Phoslo) 1,334 mg PO TIDCC [facility] Last Admin: 05/08/18 08:33 Dose: 1,334 mg Docusate Sodium (Colace) 100 mg PO BID PRN PRN Reason: Constipation Epoetin Linden (Procrit) 10,000 unit IV TTS [facility] Last Admin: 05/06/18 15:54 Dose: 10,000 unit Piperacillin Sod/Tazobactam (Sod 2.25 gm/ Sodium Chloride) 100 mls @ 200 mls/hr IVPB Q12H [facility]; Protocol Last Admin: 05/08/18 09:30 Dose: 200 mls/hr Vancomycin/Sodium Chloride (Vancomycin 1 Gm/Ns 200 Ml) 1 gm in 200 mls @ 133.333 mls/hr IVPB TTS [facility]; Protocol Stop: 05/14/18 10:01 Insulin Aspart (Novolog) 0 unit SC ACHS [facility]; Protocol Last Admin: 05/08/18 08:33 Dose: 3 units Metoprolol Tartrate (Lopressor) 25 mg PO BID [facility] Last Admin: 05/08/18 09:30 Dose: 25 mg Mupirocin (Bactroban Ointment) 0 gm TOP DAILY [facility] Last Admin: 05/08/18 09:35 Dose: 1 applic Rosuvastatin Calcium (Crestor) 10 mg PO HS [facility] Last Admin: 05/07/18 21:43 Dose: 10 mg Sitagliptin Phosphate (Januvia) 25 mg PO DAILY [facility] Last Admin: 05/08/18 09:30 Dose: 25 mg Sodium Hypochlorite (Dakins Solution 0.25%) 0 ml TOP DAILY [facility] Last Admin: 05/08/18 09:29 Dose: 1 applic Tamsulosin HCl (Flomax) 0.4 mg PO DAILY [facility] Last Admin: 05/08/18 09:30 Dose: 0.4 mg - Labs Labs: 05/07/18 08:17 05/07/18 08:17 PT 14.7 SECONDS (9.7-12.2) H 05/04/18 11:17 INR 1.3 05/04/18 11:17 APTT 34 SECONDS (21-34) 05/04/18 11:17 - Constitutional Appears: No Acute Distress, Chronically Ill - Head Exam Head Exam: ATRAUMATIC, NORMAL INSPECTION - Eye Exam Eye Exam: EOMI, Normal appearance - Neck Exam Neck Exam: Normal Inspection. absent: Tenderness - Respiratory Exam Respiratory Exam: Clear to Ausculation Bilateral, NORMAL BREATHING PATTERN - Cardiovascular Exam Cardiovascular Exam: REGULAR RHYTHM, +S1 - GI/Abdominal Exam GI & Abdominal Exam: Soft. absent: Tenderness - Extremities Exam Extremities Exam: Normal Inspection. absent: Tenderness - Neurological Exam Neurological Exam: Awake, CN II-XII Intact - Skin Skin Exam: Dry, Warm Assessment and Plan (1) Cellulitis and abscess of left leg Status: Acute (2) Cardiomyopathy Status: Acute (3) PVD (peripheral vascular disease) Status: Acute (4) PVD (peripheral vascular disease) Status: Acute (5) ESRD (end stage renal disease) on dialysis Status: Chronic (6) Non-insulin dependent type 2 diabetes mellitus Status: Chronic - Assessment and Plan (Free Text) Plan: wound care IV ABs dialysis TTS Add doses of IV Fe, continue EPO
--- NOTE | 2018-05-08 12:51 | CP.PCM.PN ---
Subjective - Date & Time of Evaluation Date of Evaluation: 05/08/18 Time of Evaluation: 09:00 - Subjective Subjective: wound and blood + MRSA vanco dosee adjusted podiatry on board wound care in progress Objective - Vital Signs/Intake and Output Vital Signs (last 24 hours): Temp Pulse Resp BP Pulse Ox 98.3 F 94 H 20 142/63 95 05/08/18 07:00 05/08/18 09:25 05/08/18 07:00 05/08/18 09:30 05/08/18 07:00 Intake and Output: 05/08/18 05/08/18 06:59 18:59 Intake Total 100 Balance 100 - Medications Medications: Current Medications Apixaban (Eliquis) 2.5 mg PO BID [facility] Last Admin: 05/08/18 09:30 Dose: 2.5 mg Calcium Acetate (Phoslo) 1,334 mg PO TIDCC [facility] Last Admin: 05/08/18 12:46 Dose: 1,334 mg Docusate Sodium (Colace) 100 mg PO BID PRN PRN Reason: Constipation Epoetin Linden (Procrit) 10,000 unit IV TTS [facility] Last Admin: 05/06/18 15:54 Dose: 10,000 unit Ferric Sodium Gluconate Complex (Ferrlecit) 125 mg IVPB DAILY [facility] Stop: 05/11/18 10:01 Piperacillin Sod/Tazobactam (Sod 2.25 gm/ Sodium Chloride) 100 mls @ 200 mls/hr IVPB Q12H [facility]; Protocol Last Admin: 05/08/18 09:30 Dose: 200 mls/hr Vancomycin/Sodium Chloride (Vancomycin 1 Gm/Ns 200 Ml) 1 gm in 200 mls @ 133.333 mls/hr IVPB TTS [facility]; Protocol Stop: 05/14/18 10:01 Insulin Aspart (Novolog) 0 unit SC ACHS [facility]; Protocol Last Admin: 05/08/18 12:30 Dose: 4 units Metoprolol Tartrate (Lopressor) 25 mg PO BID [facility] Last Admin: 05/08/18 09:30 Dose: 25 mg Mupirocin (Bactroban Ointment) 0 gm TOP DAILY [facility] Last Admin: 05/08/18 09:35 Dose: 1 applic Rosuvastatin Calcium (Crestor) 10 mg PO HS [facility] Last Admin: 01/06/19 21:43 Dose: 10 mg Sitagliptin Phosphate (Januvia) 25 mg PO DAILY [facility] Last Admin: 05/08/18 09:30 Dose: 25 mg Sodium Hypochlorite (Dakins Solution 0.25%) 0 ml TOP DAILY [facility] Last Admin: 05/08/18 09:29 Dose: 1 applic Tamsulosin HCl (Flomax) 0.4 mg PO DAILY [facility] Last Admin: 05/08/18 09:30 Dose: 0.4 mg - Labs Labs: 05/07/18 08:17 05/07/18 08:17 PT 14.7 SECONDS (9.7-12.2) H 05/04/18 11:17 INR 1.3 05/04/18 11:17 APTT 34 SECONDS (21-34) 05/04/18 11:17 - Constitutional Appears: Non-toxic, Chronically Ill - Head Exam Head Exam: NORMOCEPHALIC - Eye Exam Eye Exam: absent: Scleral icterus - ENT Exam ENT Exam: Mucous Membranes Dry - Neck Exam Neck Exam: absent: Lymphadenopathy - Respiratory Exam Respiratory Exam: Decreased Breath Sounds - Cardiovascular Exam Cardiovascular Exam: REGULAR RHYTHM - GI/Abdominal Exam GI & Abdominal Exam: Distended, Soft - Rectal Exam Rectal Exam: Deferred - Exam Exam: NORMAL INSPECTION - Extremities Exam Extremities Exam: Pedal Edema, Tenderness - Back Exam Back Exam: absent: CVA tenderness (L), CVA tenderness (R) - Neurological Exam Neurological Exam: Alert, Awake, Oriented x3 Assessment and Plan (1) Bilateral lower leg cellulitis Status: Acute (2) Cardiomyopathy Status: Acute (3) Cellulitis and abscess of left leg Status: Acute - Assessment and Plan (Free Text) Assessment: cont iv rx needs OR
--- NOTE | 2018-05-08 13:21 | MRI ---
MRI left hip HISTORY: Hip injury. Comparison: CT left hip dated 05/03/2018 TECHNIQUE: Multi-echo multiplanar sequences were performed through the left hip without the use of intravenous contrast. Findings: Left hip: No evidence of acute displaced fracture or dislocation of the left hip. Heterogeneity of the visualized marrow with patchy decreased T1 signal suggestive for hematopoietic marrow reconversion. As seen on series 6, images 17 through 19, there is some relative increased reactive edema seen within the greater tuberosity of the proximal femur which appears somewhat symmetrical in comparison to the right hip and may represent some heterogeneous marrow signal. Alternatively, mild bone bruising cannot entirely be excluded. Clinical correlation. Small left hip joint effusion. Moderate narrowing of the left hip joint space with cartilage thinning and loss. Left iliopsoas and hamstring tendon origins are preserved. Increased signal seen at the proximal attachment of the left rectus femoris tendon attachment. Partial tearing and or high grade strain at the left gluteus tendon insertions on the greater trochanter. Adjacent fluid and edema seen within the left greater trochanteric bursa suggestive for a bursitis. Fluid and edema seen within the circumferential musculature of the proximal left hip as well as pelvic floor musculature suggestive for muscle strain and or partial tearing and or myositis. Clinical correlation. Mild degenerative fraying of the left anterior acetabular labrum. Limited evaluation of the right hip demonstrates moderate narrowing of the right hip joint space with cartilage thinning and loss. Small right hip joint effusion. Heterogeneity of the visualized marrow with patchy decreased T1 signal suggestive for hematopoietic marrow reconversion. Additional relative increased STIR signal at the right greater trochanter. Moderate insertional tendinopathy of the right gluteus tendon attachments on the greater trochanter. Reactive edema seen within the right pelvic floor musculature surrounding the proximal right hip. Degenerative changes in the lower lumbar spine. Mild patchy reactive edema seen within the inferior bilateral SI joints, nonspecific. Heterogeneity of the visualized marrow throughout the bony pelvis and bilateral hips with patchy decreased T1 signal suggestive for hematopoietic marrow reconversion. Right-sided urinary bladder diverticulum noted. Pelvic ascites noted. Impression: 1. No evidence of acute displaced fracture or dislocation of the left hip. 2. Heterogeneity of the visualized marrow in the left hip with patchy decreased T1 signal suggestive for hematopoietic marrow reconversion. Clinical correlation. As seen on series 6, images 17 through 19, there is some relative increased reactive edema seen within the greater tuberosity of the proximal femur which appears somewhat symmetrical in comparison to the right hip and may represent some heterogeneous marrow signal. Alternatively, mild bone bruising cannot entirely be excluded. Clinical correlation. 3. Small left hip joint effusion. 4. Moderate narrowing of the left hip joint space with cartilage thinning and loss. 5. Increased signal seen at the proximal attachment of the left rectus femoris tendon attachment. 6. Partial tearing and or high grade strain at the left gluteus tendon insertions on the greater trochanter. Adjacent fluid and edema seen within the left greater trochanteric bursa suggestive for a bursitis. 7. Fluid and edema seen within the circumferential musculature of the proximal left hip as well as pelvic floor musculature suggestive for muscle strain and or partial tearing and or myositis. Clinical correlation. 8. Mild degenerative fraying of the left anterior acetabular labrum. 9. Limited evaluation of the right hip demonstrates moderate narrowing of the right hip joint space with cartilage thinning and loss. 10. Small right hip joint effusion. 11. Heterogeneity of the visualized marrow within the right hip with patchy decreased T1 signal suggestive for hematopoietic marrow reconversion. Clinical correlation. Additional relative increased STIR signal at the right greater trochanter. 12. Moderate insertional tendinopathy of the right gluteus tendon attachments on the greater trochanter. 13. Reactive edema seen within the right pelvic floor musculature surrounding the proximal right hip. 14. Mild patchy reactive edema seen within the inferior bilateral SI joints, nonspecific. 15. Heterogeneity of the visualized marrow throughout the bony pelvis and bilateral hips with patchy decreased T1 signal suggestive for hematopoietic marrow reconversion. Clinical correlation. 16. Right-sided urinary bladder diverticulum noted. 17. Pelvic ascites noted. A preliminary report was generated at 12:48 p.m. on 05/06/[address] Oz Hart from [employer].
--- NOTE | 2018-05-08 14:40 | CP.PCM.PN ---
Subjective - Date & Time of Evaluation Date of Evaluation: 05/08/18 Time of Evaluation: 07:25 - Subjective Subjective: Vascular Surgery Progress note. Dr. Macias Pt seen and examined at bedside. No acute events overnight. No new complaints. Still c/o LLE wound, podiatry following. Objective - Vital Signs/Intake and Output Vital Signs (last 24 hours): Temp Pulse Resp BP Pulse Ox 98.3 F 94 H 20 142/63 95 05/08/18 07:00 05/08/18 09:25 05/08/18 07:00 05/08/18 09:30 05/08/18 07:00 Intake and Output: 05/08/18 05/08/18 06:59 18:59 Intake Total 100 Balance 100 - Medications Medications: Current Medications Apixaban (Eliquis) 2.5 mg PO BID [facility] Last Admin: 05/08/18 09:30 Dose: 2.5 mg Calcium Acetate (Phoslo) 1,334 mg PO TIDCC [facility] Last Admin: 05/08/18 12:46 Dose: 1,334 mg Docusate Sodium (Colace) 100 mg PO BID PRN PRN Reason: Constipation Epoetin Linden (Procrit) 10,000 unit IV TTS [facility] Last Admin: 05/06/18 15:54 Dose: 10,000 unit Piperacillin Sod/Tazobactam (Sod 2.25 gm/ Sodium Chloride) 100 mls @ 200 mls/hr IVPB Q12H [facility]; Protocol Last Admin: 05/08/18 09:30 Dose: 200 mls/hr Vancomycin/Sodium Chloride (Vancomycin 1 Gm/Ns 200 Ml) 1 gm in 200 mls @ 133.333 mls/hr IVPB TTS [facility]; Protocol Stop: 05/14/18 10:01 Ferric Sodium Gluconate Complex 125 mg/ Sodium Chloride 110 mls @ 110 mls/hr IVPB DAILY [facility] Stop: 05/11/18 10:01 Insulin Aspart (Novolog) 0 unit SC ACHS [facility]; Protocol Last Admin: 05/08/18 12:30 Dose: 4 units Metoprolol Tartrate (Lopressor) 25 mg PO BID [facility] Last Admin: 05/08/18 09:30 Dose: 25 mg Mupirocin (Bactroban Ointment) 0 gm TOP DAILY [facility] Last Admin: 05/08/18 09:35 Dose: 1 applic Rosuvastatin Calcium (Crestor) 10 mg PO HS [facility] Last Admin: 05/07/18 21:43 Dose: 10 mg Sitagliptin Phosphate (Januvia) 25 mg PO DAILY [facility] Last Admin: 05/08/18 09:30 Dose: 25 mg Sodium Hypochlorite (Dakins Solution 0.25%) 0 ml TOP DAILY [facility] Last Admin: 05/08/18 09:29 Dose: 1 applic Tamsulosin HCl (Flomax) 0.4 mg PO DAILY [facility] Last Admin: 05/08/18 09:30 Dose: 0.4 mg - Labs Labs: 05/07/18 08:17 05/07/18 08:17 PT 14.7 SECONDS (9.7-12.2) H 05/04/18 11:17 INR 1.3 05/04/18 11:17 APTT 34 SECONDS (21-34) 05/04/18 11:17 - Constitutional Appears: Non-toxic, Chronically Ill - Head Exam Head Exam: ATRAUMATIC, NORMAL INSPECTION, NORMOCEPHALIC - Eye Exam Eye Exam: EOMI, Normal appearance. absent: Scleral icterus - ENT Exam ENT Exam: Mucous Membranes Moist - Respiratory Exam Respiratory Exam: NORMAL BREATHING PATTERN. absent: Accessory Muscle Use, Respiratory Distress - Cardiovascular Exam Cardiovascular Exam: absent: JVD - GI/Abdominal Exam GI & Abdominal Exam: Soft. absent: Distended, Guarding, Tenderness, Rebound - Extremities Exam Additional comments: RLE non-healing wound. Off-loading heel protectors in place - Neurological Exam Neurological Exam: Alert, Awake, Oriented x3 Assessment and Plan - Assessment and Plan (Free Text) Assessment: 73yo M with peripheral vascular disease and LLE nonhealing ulcer. Plan: - Will plan for labor utilization superintendent for Angio +/- intervention on 05/10/18 - NPO past mn Tuesday night Further recs as per Dr. Gilberto Yousif PGY2 surgery
--- NOTE | 2018-05-08 18:06 | CP.PCM.PN ---
Subjective - Date & Time of Evaluation Date of Evaluation: 05/08/18 Time of Evaluation: 15:00 - Subjective Subjective: Podiatry Progress Note: Dr. Cavanaugh 73 year old male patient examined and evaluated at bedside this morning for left lateral ankle ulceration and multiple superficial ulcerations to left foot. at bedside during visitation. Patient seen resting comfortably in bed, in NAD. Patient reports mild pain to the left foot. Denies N/V/F/SOB/CP/Chills. Objective - Vital Signs/Intake and Output Vital Signs (last 24 hours): Temp Pulse Resp BP Pulse Ox 98.1 F 80 20 127/61 96 05/08/18 16:00 05/08/18 16:00 05/08/18 16:00 05/08/18 17:29 05/08/18 16:00 Intake and Output: 05/08/18 05/08/18 06:59 18:59 Intake Total 100 Balance 100 - Medications Medications: Current Medications Apixaban (Eliquis) 2.5 mg PO BID [facility] Last Admin: 05/08/18 17:29 Dose: 2.5 mg Calcium Acetate (Phoslo) 1,334 mg PO TIDCC [facility] Last Admin: 05/08/18 17:29 Dose: 1,334 mg Docusate Sodium (Colace) 100 mg PO BID PRN PRN Reason: Constipation Epoetin Linden (Procrit) 10,000 unit IV TTS [facility] Last Admin: 05/06/18 15:54 Dose: 10,000 unit Piperacillin Sod/Tazobactam (Sod 2.25 gm/ Sodium Chloride) 100 mls @ 200 mls/hr IVPB Q12H [facility]; Protocol Last Admin: 05/08/18 09:30 Dose: 200 mls/hr Vancomycin/Sodium Chloride (Vancomycin 1 Gm/Ns 200 Ml) 1 gm in 200 mls @ 133.333 mls/hr IVPB TTS [facility]; Protocol Stop: 05/14/18 10:01 Ferric Sodium Gluconate Complex 125 mg/ Sodium Chloride 110 mls @ 110 mls/hr IVPB DAILY [facility] Stop: 05/11/18 10:01 Insulin Aspart (Novolog) 0 unit SC ACHS [facility]; Protocol Last Admin: 05/08/18 17:29 Dose: 4 units Metoprolol Tartrate (Lopressor) 25 mg PO BID [facility] Last Admin: 05/08/18 17:29 Dose: 25 mg Mupirocin (Bactroban Ointment) 0 gm TOP DAILY [facility] Last Admin: 05/08/18 09:35 Dose: 1 applic Rosuvastatin Calcium (Crestor) 10 mg PO HS [facility] Last Admin: 05/07/18 21:43 Dose: 10 mg Sitagliptin Phosphate (Januvia) 25 mg PO DAILY [facility] Last Admin: 05/08/18 09:30 Dose: 25 mg Sodium Hypochlorite (Dakins Solution 0.25%) 0 ml TOP DAILY [facility] Last Admin: 05/08/18 09:29 Dose: 1 applic Tamsulosin HCl (Flomax) 0.4 mg PO DAILY [facility] Last Admin: 05/08/18 09:30 Dose: 0.4 mg - Labs Labs: 05/07/18 08:17 05/07/18 08:17 PT 14.7 SECONDS (9.7-12.2) H 05/04/18 11:17 INR 1.3 05/04/18 11:17 APTT 34 SECONDS (21-34) 05/04/18 11:17 - Constitutional Appears: Well, Non-toxic, No Acute Distress - Extremities Exam Extremities Exam: absent: Calf Tenderness Additional comments: Lower extremity focused exam: Vasc: DP/PT pulses palpable 2/4. Temperature gradient warm to warm. CFT < 3 sec to all digits. No pedal edema noted Derm: Open circular ulceration noted to left lateral malleolus approx 3cm diameter and 0.4cm in depth with 50% fibrotic and 50% granular wound base, with some necrotic tissue noted centrally to wound bed. Macerated wound borders. Less drainage noted to the lateral malleolus ulceration. No tunneling or undermining, no purulence, no fluctuance. Eschar noted to left lateral midfoot with overlying hyperkeratotic tissue, with no purulence drainage expressed today. Multiple lanced fluid-filled blisters noted to dorsum of left foot and left lower leg with no underlying open lesions. Stage 2 pressure ulceration to left heel with thin friable erythematous skin with no break in skin noted Neuro: Protective sensation slightly diminished, gross sensation intact Ortho: No tenderness to palpation of left lower extremity ulcerations Assessment and Plan - Assessment and Plan (Free Text) Assessment: 73 y/o male with left lower extremity ulcerations to foot and ankle, infected Plan: Patient seen and evaluated Discussed plan in detail with attending Dr. Cavanaugh Afebrile, WBC 15.1 on 05/07/18 Wound cx of left ankle; MRSA IV abx per Infecious Disease Dr. Lynn Velazquez on board, reccs appreciated - Vascular plans for culture media laboratory assistant for angio 05/10/18 Multipodus boots to be worn at all times in bed Left ankle ulcer cleaned with saline and dressed with DSD Ankle x-rays reviewed- no acute osseous findings are noted Bactroban ordered, podiatry to continue with local wound care Cleansed ulceration with copious saline, dressed ulcerations with bactroban Will continue to follow
--- NOTE | 2018-05-09 01:43 | CP.PCM.PN ---
Subjective - Date & Time of Evaluation Date of Evaluation: 05/08/18 Time of Evaluation: 21:30 - Subjective Subjective: Patient feels better, afebrile, with improving cellulitis of the lower legs. On IV antibiotics. Objective - Vital Signs/Intake and Output Vital Signs (last 24 hours): Temp Pulse Resp BP Pulse Ox 98.1 F 80 20 127/61 96 05/08/18 16:00 05/08/18 16:00 05/08/18 16:00 05/08/18 17:29 05/08/18 16:00 Intake and Output: 05/08/18 05/09/18 18:59 06:59 Intake Total 230 Balance 230 - Medications Medications: Current Medications Apixaban (Eliquis) 2.5 mg PO BID [facility] Last Admin: 05/08/18 17:29 Dose: 2.5 mg Calcium Acetate (Phoslo) 1,334 mg PO TIDCC [facility] Last Admin: 05/08/18 17:29 Dose: 1,334 mg Docusate Sodium (Colace) 100 mg PO BID PRN PRN Reason: Constipation Epoetin Linden (Procrit) 10,000 unit IV TTS [facility] Last Admin: 05/06/18 15:54 Dose: 10,000 unit Piperacillin Sod/Tazobactam (Sod 2.25 gm/ Sodium Chloride) 100 mls @ 200 mls/hr IVPB Q12H [facility]; Protocol Last Admin: 05/08/18 22:02 Dose: 200 mls/hr Vancomycin/Sodium Chloride (Vancomycin 1 Gm/Ns 200 Ml) 1 gm in 200 mls @ 133.333 mls/hr IVPB TTS [facility]; Protocol Stop: 05/14/18 10:01 Ferric Sodium Gluconate Complex 125 mg/ Sodium Chloride 110 mls @ 110 mls/hr IVPB DAILY [facility] Stop: 05/11/18 10:01 Insulin Aspart (Novolog) 0 unit SC ACHS [facility]; Protocol Last Admin: 05/08/18 21:57 Dose: Not Given Metoprolol Tartrate (Lopressor) 25 mg PO BID [facility] Last Admin: 05/08/18 17:29 Dose: 25 mg Mupirocin (Bactroban Ointment) 0 gm TOP DAILY [facility] Last Admin: 05/08/18 09:35 Dose: 1 applic Rosuvastatin Calcium (Crestor) 10 mg PO HS [facility] Last Admin: 05/08/18 22:02 Dose: 10 mg Sitagliptin Phosphate (Januvia) 25 mg PO DAILY [facility] Last Admin: 05/08/18 09:30 Dose: 25 mg Sodium Hypochlorite (Dakins Solution 0.25%) 0 ml TOP DAILY [facility] Last Admin: 05/08/18 09:29 Dose: 1 applic Tamsulosin HCl (Flomax) 0.4 mg PO DAILY [facility] Last Admin: 05/08/18 09:30 Dose: 0.4 mg - Labs Labs: 05/07/18 08:17 05/07/18 08:17 PT 14.7 SECONDS (9.7-12.2) H 05/04/18 11:17 INR 1.3 05/04/18 11:17 APTT 34 SECONDS (21-34) 05/04/18 11:17 - Constitutional Appears: Well, No Acute Distress, Chronically Ill - Head Exam Head Exam: NORMOCEPHALIC - Eye Exam Eye Exam: Normal appearance - ENT Exam ENT Exam: Normal Exam - Respiratory Exam Respiratory Exam: Clear to Ausculation Bilateral, NORMAL BREATHING PATTERN - Cardiovascular Exam Cardiovascular Exam: REGULAR RHYTHM - GI/Abdominal Exam GI & Abdominal Exam: Soft - Exam Exam: NORMAL INSPECTION - Extremities Exam Additional comments: Clearing cellulitis of the lower extremities. - Back Exam Back Exam: NORMAL INSPECTION - Neurological Exam Neurological Exam: Alert, Awake, Oriented x3 - Psychiatric Exam Psychiatric exam: Anxious Assessment and Plan (1) Fall Status: Acute (2) Contusion of head Status: Resolved (3) Contusion of hip, left Status: Resolved (4) Bilateral lower leg cellulitis Assessment & Plan: On IV Vancomycin and Zosyn. Status: Acute (5) Atrial fibrillation Assessment & Plan: To continue Eliquis. Status: Chronic (6) ESRD on hemodialysis Assessment & Plan: Hemodialysis as per Nephrologists. Status: Chronic (7) Uncontrolled diabetes mellitus Status: Chronic
[2018-05-09] MEDS: (Novolog) Insulin Aspart, Recombinant 100 u/ml 10 ml vial SC SCH ×4 (08:30→21:32)
[2018-05-09] MEDS: Piperacillin/Tazobact 2.25 GM in Sodium Chloride 100 ML IVPB SCH ×2 (09:59→22:08)
[2018-05-09] MEDS ORDERED: Ferric Sodium Gluconat Complex 62.5 mg/5 ml Vial IVPB SCH (10:00)
[2018-05-09] MEDS ORDERED: Ferric Sodium Gluconat Complex 125 MG in Sodium Chloride 0.9% 100 ML IVPB SCH (10:00)
[2018-05-09] MEDS: GlipiZIDE 5 mg SR Tab PO SCH (10:10)
--- NOTE | 2018-05-09 10:10 | CP.PCM.PN ---
Subjective - Date & Time of Evaluation Date of Evaluation: 05/09/18 Time of Evaluation: 11:34 - Subjective Subjective: Patient complaining of neck stiffness, denies hip pain. Pain in feet is improving. Review of Systems - Review of Systems All systems: reviewed and no additional remarkable complaints except - Musculoskeletal Musculoskeletal: As Par HPI Objective - Vital Signs/Intake and Output Vital Signs (last 24 hours): Temp Pulse Resp BP Pulse Ox 98.2 F 74 20 111/65 95 05/09/18 08:05 05/09/18 08:05 05/09/18 08:05 05/09/18 08:05 05/09/18 08:05 Intake and Output: 05/09/18 05/09/18 06:59 18:59 Intake Total 330 Balance 330 - Medications Medications: Current Medications Apixaban (Eliquis) 2.5 mg PO BID [facility] Last Admin: 05/08/18 17:29 Dose: 2.5 mg Calcium Acetate (Phoslo) 1,334 mg PO TIDCC [facility] Last Admin: 05/09/18 08:51 Dose: 1,334 mg Docusate Sodium (Colace) 100 mg PO BID PRN PRN Reason: Constipation Epoetin Linden (Procrit) 10,000 unit IV TTS [facility] Last Admin: 05/06/18 15:54 Dose: 10,000 unit Glipizide (Glucotrol Xl) 5 mg PO DAILY [facility] Piperacillin Sod/Tazobactam (Sod 2.25 gm/ Sodium Chloride) 100 mls @ 200 mls/hr IVPB Q12H [facility]; Protocol Last Admin: 05/09/18 09:59 Dose: 200 mls/hr Vancomycin/Sodium Chloride (Vancomycin 1 Gm/Ns 200 Ml) 1 gm in 200 mls @ 133.333 mls/hr IVPB TTS [facility]; Protocol Stop: 05/14/18 10:01 Ferric Sodium Gluconate Complex 125 mg/ Sodium Chloride 110 mls @ 110 mls/hr IVPB DAILY [facility] Stop: 05/11/18 10:01 Insulin Aspart (Novolog) 0 unit SC ACHS [facility]; Protocol Last Admin: 05/09/18 08:30 Dose: 5 units Metoprolol Tartrate (Lopressor) 25 mg PO BID [facility] Last Admin: 05/08/18 17:29 Dose: 25 mg Mupirocin (Bactroban Ointment) 0 gm TOP DAILY [facility] Last Admin: 05/08/18 09:35 Dose: 1 applic Rosuvastatin Calcium (Crestor) 10 mg PO HS [facility] Last Admin: 05/08/18 22:02 Dose: 10 mg Sitagliptin Phosphate (Januvia) 25 mg PO DAILY [facility] Last Admin: 05/08/18 09:30 Dose: 25 mg Sodium Hypochlorite (Dakins Solution 0.25%) 0 ml TOP DAILY [facility] Last Admin: 05/08/18 09:29 Dose: 1 applic Tamsulosin HCl (Flomax) 0.4 mg PO DAILY [facility] Last Admin: 05/08/18 09:30 Dose: 0.4 mg - Labs Labs: 05/07/18 08:17 05/07/18 08:17 PT 14.7 SECONDS (9.7-12.2) H 05/04/18 11:17 INR 1.3 05/04/18 11:17 APTT 34 SECONDS (21-34) 05/04/18 11:17 - Constitutional Appears: Well, No Acute Distress - Head Exam Head Exam: ATRAUMATIC - Neck Exam Neck Exam: Full ROM, Normal Inspection Additional comments: mild pain with full neck ROM, no meningismus - Respiratory Exam Respiratory Exam: NORMAL BREATHING PATTERN - Extremities Exam Additional comments: no pain iwth active or passive ROM B hips - Neurological Exam Neurological Exam: Alert, Awake Neuro motor strength exam: Left Lower Extremity: 5, Right Lower Extremity: 5 - Psychiatric Exam Psychiatric exam: Normal Affect, Normal Mood - Skin Skin Exam: Dry, Intact, Normal Color, Warm Assessment and Plan (1) Osteoarthritis of left hip Assessment & Plan: no clinical suspicion of septic arthritis at this time PT/OT when appropriate At this time, patient complaining of pain in heels and from sacral wound, no hip pain patient is not a surgical candidate at this time for hip replacement surgery no fracture on CT +blood cultures VTE proph MRI left hip reviewed, does not change orthopedic mgmt at this time no orthopedic intervention planned at this time d/w Dr. Weiner, agrees with above, patient can follow up as outpatient [phone] Status: Acute
[2018-05-09] MEDS: Dakin's Topical 0.25%-Half Strength (480 ml) TOP SCH (10:12)
--- NOTE | 2018-05-09 10:19 | CP.PCM.PN ---
Subjective - Date & Time of Evaluation Date of Evaluation: 05/09/18 Time of Evaluation: 07:20 - Subjective Subjective: Vascular Surgery Progress note. Dr. Macias Pt seen and examined at bedside. No new complaints. Denies any fevers or chills. Objective - Vital Signs/Intake and Output Vital Signs (last 24 hours): Temp Pulse Resp BP Pulse Ox 98.2 F 74 20 111/65 95 05/09/18 08:05 05/09/18 08:05 05/09/18 08:05 05/09/18 08:05 05/09/18 08:05 Intake and Output: 05/09/18 05/09/18 06:59 18:59 Intake Total 330 Balance 330 - Medications Medications: Current Medications Apixaban (Eliquis) 2.5 mg PO BID [facility] Last Admin: 05/09/18 10:10 Dose: 2.5 mg Calcium Acetate (Phoslo) 1,334 mg PO TIDCC [facility] Last Admin: 05/09/18 08:51 Dose: 1,334 mg Docusate Sodium (Colace) 100 mg PO BID PRN PRN Reason: Constipation Epoetin Linden (Procrit) 10,000 unit IV TTS [facility] Last Admin: 05/06/18 15:54 Dose: 10,000 unit Glipizide (Glucotrol Xl) 5 mg PO DAILY [facility] Last Admin: 05/09/18 10:10 Dose: 5 mg Piperacillin Sod/Tazobactam (Sod 2.25 gm/ Sodium Chloride) 100 mls @ 200 mls/hr IVPB Q12H [facility]; Protocol Last Admin: 05/09/18 09:59 Dose: 200 mls/hr Vancomycin/Sodium Chloride (Vancomycin 1 Gm/Ns 200 Ml) 1 gm in 200 mls @ 133.333 mls/hr IVPB TTS [facility]; Protocol Stop: 05/14/18 10:01 Ferric Sodium Gluconate Complex 125 mg/ Sodium Chloride 110 mls @ 110 mls/hr IVPB DAILY@1400 [facility] Stop: 05/11/18 14:01 Insulin Aspart (Novolog) 0 unit SC ACHS [facility]; Protocol Last Admin: 05/09/18 08:30 Dose: 5 units Metoprolol Tartrate (Lopressor) 25 mg PO BID [facility] Last Admin: 05/08/18 17:29 Dose: 25 mg Mupirocin (Bactroban Ointment) 0 gm TOP DAILY [facility] Last Admin: 05/09/18 10:12 Dose: 1 applic Rosuvastatin Calcium (Crestor) 10 mg PO HS [facility] Last Admin: 05/08/18 22:02 Dose: 10 mg Sitagliptin Phosphate (Januvia) 25 mg PO DAILY [facility] Last Admin: 05/09/18 10:10 Dose: 25 mg Sodium Hypochlorite (Dakins Solution 0.25%) 0 ml TOP DAILY [facility] Last Admin: 05/09/18 10:12 Dose: 1 applic Tamsulosin HCl (Flomax) 0.4 mg PO DAILY [facility] Last Admin: 05/09/18 10:10 Dose: 0.4 mg - Labs Labs: 05/07/18 08:17 05/07/18 08:17 PT 14.7 SECONDS (9.7-12.2) H 05/04/18 11:17 INR 1.3 05/04/18 11:17 APTT 34 SECONDS (21-34) 05/04/18 11:17 - Constitutional Appears: Non-toxic, Older Than Stated Age, Chronically Ill - Head Exam Head Exam: ATRAUMATIC, NORMAL INSPECTION, NORMOCEPHALIC - Eye Exam Eye Exam: EOMI, Normal appearance. absent: Scleral icterus - ENT Exam ENT Exam: Mucous Membranes Moist - Respiratory Exam Respiratory Exam: NORMAL BREATHING PATTERN. absent: Accessory Muscle Use, Respiratory Distress - Cardiovascular Exam Cardiovascular Exam: absent: JVD - GI/Abdominal Exam GI & Abdominal Exam: Soft. absent: Distended, Firm, Guarding, Rigid, Tenderness, Rebound - Extremities Exam Additional comments: left foot dressing in place. Foot placed within off loading boots. - Neurological Exam Neurological Exam: Alert, Awake Assessment and Plan - Assessment and Plan (Free Text) Assessment: 73yo M with peripheral vascular disease and LLE nonhealing ulcer. 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 Gilberto Yousif PGY2 surgery
[2018-05-09] MEDS: Vancomycin 1 gm/NS 200 ml 1 GM/200 ML BAG IVPB SCH (11:42)
--- NOTE | 2018-05-09 11:57 | CP.PCM.PN ---
Subjective - Date & Time of Evaluation Date of Evaluation: 05/09/18 Time of Evaluation: 08:00 - Subjective Subjective: FEVER LESS BLOOD C/S + Objective - Vital Signs/Intake and Output Vital Signs (last 24 hours): Temp Pulse Resp BP Pulse Ox 98.2 F 74 20 111/65 95 05/09/18 08:05 05/09/18 08:05 05/09/18 08:05 05/09/18 08:05 05/09/18 08:05 Intake and Output: 05/09/18 05/09/18 06:59 18:59 Intake Total 330 Balance 330 - Medications Medications: Current Medications Apixaban (Eliquis) 2.5 mg PO BID [facility] Last Admin: 05/09/18 10:10 Dose: 2.5 mg Calcium Acetate (Phoslo) 1,334 mg PO TIDCC [facility] Last Admin: 05/09/18 11:42 Dose: Not Given Docusate Sodium (Colace) 100 mg PO BID PRN PRN Reason: Constipation Epoetin Linden (Procrit) 10,000 unit IV TTS [facility] Last Admin: 05/06/18 15:54 Dose: 10,000 unit Glipizide (Glucotrol Xl) 5 mg PO DAILY [facility] Last Admin: 05/09/18 10:10 Dose: 5 mg Piperacillin Sod/Tazobactam (Sod 2.25 gm/ Sodium Chloride) 100 mls @ 200 mls/hr IVPB Q12H [facility]; Protocol Last Admin: 05/09/18 09:59 Dose: 200 mls/hr Vancomycin/Sodium Chloride (Vancomycin 1 Gm/Ns 200 Ml) 1 gm in 200 mls @ 133.333 mls/hr IVPB TTS [facility]; Protocol Stop: 05/14/18 10:01 Last Admin: 05/09/18 11:42 Dose: Not Given Ferric Sodium Gluconate Complex 125 mg/ Sodium Chloride 110 mls @ 110 mls/hr IVPB DAILY@1400 [facility] Stop: 05/11/18 14:01 Insulin Aspart (Novolog) 0 unit SC ACHS [facility]; Protocol Last Admin: 05/09/18 08:30 Dose: 5 units Metoprolol Tartrate (Lopressor) 25 mg PO BID [facility] Last Admin: 05/09/18 10:20 Dose: Not Given Mupirocin (Bactroban Ointment) 0 gm TOP DAILY [facility] Last Admin: 05/09/18 10:12 Dose: 1 applic Rosuvastatin Calcium (Crestor) 10 mg PO HS [facility] Last Admin: 05/08/18 22:02 Dose: 10 mg Sitagliptin Phosphate (Januvia) 25 mg PO DAILY [facility] Last Admin: 05/09/18 10:10 Dose: 25 mg Sodium Hypochlorite (Dakins Solution 0.25%) 0 ml TOP DAILY [facility] Last Admin: 05/09/18 10:12 Dose: 1 applic Tamsulosin HCl (Flomax) 0.4 mg PO DAILY [facility] Last Admin: 05/09/18 10:10 Dose: 0.4 mg - Labs Labs: 05/07/18 08:17 05/07/18 08:17 PT 14.7 SECONDS (9.7-12.2) H 05/04/18 11:17 INR 1.3 05/04/18 11:17 APTT 34 SECONDS (21-34) 05/04/18 11:17 - Constitutional Appears: Non-toxic, Chronically Ill - Head Exam Head Exam: NORMOCEPHALIC - Eye Exam Eye Exam: absent: Scleral icterus - ENT Exam ENT Exam: Mucous Membranes Dry - Neck Exam Neck Exam: absent: Lymphadenopathy - Respiratory Exam Respiratory Exam: Decreased Breath Sounds - Cardiovascular Exam Cardiovascular Exam: REGULAR RHYTHM - GI/Abdominal Exam GI & Abdominal Exam: Distended - Rectal Exam Rectal Exam: Deferred - Extremities Exam Extremities Exam: Pedal Edema Additional comments: WOUND LEFT FOOT INSPECTED STILL DRAINAGE - Back Exam Back Exam: absent: CVA tenderness (L), CVA tenderness (R) - Neurological Exam Neurological Exam: Alert, Awake, CN II-XII Intact Assessment and Plan (1) Bilateral lower leg cellulitis Status: Acute (2) Cardiomyopathy Status: Acute (3) Cellulitis and abscess of left leg Status: Acute - Assessment and Plan (Free Text) Assessment: CONT IV ANTIBIOTICS AND WOUND CARE
[2018-05-09] MEDS: Epoetin Alfa 10,000 unit/ml Dialysis IV SCH (12:15)
--- NOTE | 2018-05-09 12:44 | CP.PCM.PN ---
Subjective - Date & Time of Evaluation Date of Evaluation: 05/09/18 Time of Evaluation: 12:42 - Subjective Subjective: seen and examined denies any f/c/n/v/d/cp/sob/dizziness/headache/rash notes reviewed blood cultures repeat + GPC on iv antibiotics c/o being hungry denies any pain nausea vomiting diarrhea sob dizziness Objective - Vital Signs/Intake and Output Vital Signs (last 24 hours): Temp Pulse Resp BP Pulse Ox 97.5 F L 65 18 108/54 L 97 05/09/18 11:00 05/09/18 11:00 05/09/18 11:00 05/09/18 12:00 05/09/18 11:00 Intake and Output: 05/09/18 05/09/18 06:59 18:59 Intake Total 330 Balance 330 - Medications Medications: Current Medications Apixaban (Eliquis) 2.5 mg PO BID [facility] Last Admin: 05/09/18 10:10 Dose: 2.5 mg Calcium Acetate (Phoslo) 1,334 mg PO TIDCC [facility] Last Admin: 05/09/18 11:42 Dose: Not Given Docusate Sodium (Colace) 100 mg PO BID PRN PRN Reason: Constipation Epoetin Linden (Procrit) 10,000 unit IV TTS [facility] Last Admin: 05/09/18 12:15 Dose: 10,000 unit Glipizide (Glucotrol Xl) 5 mg PO DAILY [facility] Last Admin: 05/09/18 10:10 Dose: 5 mg Piperacillin Sod/Tazobactam (Sod 2.25 gm/ Sodium Chloride) 100 mls @ 200 mls/hr IVPB Q12H [facility]; Protocol Last Admin: 05/09/18 09:59 Dose: 200 mls/hr Vancomycin/Sodium Chloride (Vancomycin 1 Gm/Ns 200 Ml) 1 gm in 200 mls @ 133.333 mls/hr IVPB TTS [facility]; Protocol Stop: 05/14/18 10:01 Last Admin: 05/09/18 11:42 Dose: Not Given Ferric Sodium Gluconate Complex 125 mg/ Sodium Chloride 110 mls @ 110 mls/hr I [facility] DAILY@1400 [facility] Stop: 05/11/18 14:01 Insulin Aspart (Novolog) 0 unit SC ACHS [facility]; Protocol Last Admin: 05/09/18 08:30 Dose: 5 units Metoprolol Tartrate (Lopressor) 25 mg PO BID [facility] Last Admin: 05/09/18 10:20 Dose: Not Given Mupirocin (Bactroban Ointment) 0 gm TOP DAILY [facility] Last Admin: 05/09/18 10:12 Dose: 1 applic Rosuvastatin Calcium (Crestor) 10 mg PO HS [facility] Last Admin: 05/08/18 22:02 Dose: 10 mg Sitagliptin Phosphate (Januvia) 25 mg PO DAILY [facility] Last Admin: 05/09/18 10:10 Dose: 25 mg Sodium Hypochlorite (Dakins Solution 0.25%) 0 ml TOP DAILY [facility] Last Admin: 05/09/18 10:12 Dose: 1 applic Tamsulosin HCl (Flomax) 0.4 mg PO DAILY [facility] Last Admin: 05/09/18 10:10 Dose: 0.4 mg - Labs Labs: 05/07/18 08:17 05/07/18 08:17 PT 14.7 SECONDS (9.7-12.2) H 05/04/18 11:17 INR 1.3 05/04/18 11:17 APTT 34 SECONDS (21-34) 05/04/18 11:17 - Constitutional Appears: No Acute Distress, Chronically Ill - Head Exam Head Exam: NORMAL INSPECTION, NORMOCEPHALIC - Eye Exam Eye Exam: Normal appearance, PERRL - ENT Exam ENT Exam: Mucous Membranes Moist, Normal Exam - Neck Exam Neck Exam: Full ROM, Normal Inspection - Respiratory Exam Respiratory Exam: Clear to Ausculation Bilateral, NORMAL BREATHING PATTERN - Cardiovascular Exam Cardiovascular Exam: Irregular Rhythm - GI/Abdominal Exam GI & Abdominal Exam: Soft, Normal Bowel Sounds - Extremities Exam Extremities Exam: Normal Inspection (LLE in dressing) - Neurological Exam Neurological Exam: Alert, Awake, Oriented x3 - Psychiatric Exam Psychiatric exam: Normal Affect, Normal Mood - Skin Skin Exam: Intact, Normal Color Assessment and Plan (1) Bacteremia Status: Acute (2) Foot osteomyelitis Status: Acute (3) PVD (peripheral vascular disease) Status: Acute (4) ESRD on hemodialysis Status: Chronic - Assessment and Plan (Free Text) Assessment: maintain hd tts lower metoprolol dose, low bp antibiotics per ID, vascular eval ongoing consider TREVA for persistently + blood cx
[2018-05-09] MEDS: Ferric Sodium Gluconat Complex 125 MG in Sodium Chloride 0.9% 100 ML IVPB SCH (14:00)
[2018-05-09 19:49] LABS: INR 1.6; PROTHROMBIN TIME 17.9 SECONDS (9.7-12.2)
--- NOTE | 2018-05-10 07:50 | RAD ---
Date of service: 05/09/2018 HISTORY: preop COMPARISON: Chest radiographs 01/05/2018. FINDINGS: LUNGS: Left basilar airspace disease not excluded. None is clearly evident at the right. PLEURA: No effusion is developing. None is apparent at the right. CARDIOVASCULAR: Calcific atherosclerotic changes are seen related to the thoracic aorta. Prominent cardiac silhouette appears stable. No definite pulmonary vascular congestion. OSSEOUS STRUCTURES: No significant abnormalities. VISUALIZED UPPER ABDOMEN: Normal. OTHER FINDINGS: Numerous wall stents are identified at the region of the right subclavian and upper extremity soft tissues. IMPRESSION: Pleural effusion has developed with underlying airspace disease not excluded at the left base. No definite right-sided infiltrate or pleural effusion.
[2018-05-10] MEDS: (Novolog) Insulin Aspart, Recombinant 100 u/ml 10 ml vial SC SCH ×4 (07:52→21:27)
--- NOTE | 2018-05-10 08:04 | CP.PCM.PN ---
Subjective - Date & Time of Evaluation Date of Evaluation: 05/09/18 Time of Evaluation: 12:40 - Subjective Subjective: Podiatry Progress Note: Dr. Cavanaugh 73 year old male patient examined and evaluated at bedside with attending Dr. Cavanaugh for left lateral ankle ulceration and multiple superficial ulcerations to left foot. and daugther at bedside during visitation. Patient seen resting comfortably in bed, in NAD. Patient reports mild pain to the left foot. Denies N/V/F/SOB/CP/Chills. Objective - Vital Signs/Intake and Output Vital Signs (last 24 hours): Temp Pulse Resp BP Pulse Ox 97.9 F 83 20 106/57 L 90 L 05/09/18 23:26 05/09/18 23:26 05/09/18 23:26 05/09/18 23:26 05/09/18 23:26 Intake and Output: 05/10/18 05/10/18 06:59 18:59 Intake Total 350 Balance 350 - Medications Medications: Current Medications Apixaban (Eliquis) 2.5 mg PO BID [facility] Last Admin: 05/09/18 17:17 Dose: 2.5 mg Calcium Acetate (Phoslo) 1,334 mg PO TIDCC [facility] Last Admin: 05/09/18 17:17 Dose: 1,334 mg Docusate Sodium (Colace) 100 mg PO BID PRN PRN Reason: Constipation Epoetin Linden (Procrit) 10,000 unit IV TTS [facility] Last Admin: 05/09/18 12:15 Dose: 10,000 unit Glipizide (Glucotrol Xl) 5 mg PO DAILY [facility] Last Admin: 05/09/18 10:10 Dose: 5 mg Piperacillin Sod/Tazobactam (Sod 2.25 gm/ Sodium Chloride) 100 mls @ 200 mls/hr IVPB Q12H [facility]; Protocol Last Admin: 05/09/18 22:08 Dose: 200 mls/hr Vancomycin/Sodium Chloride (Vancomycin 1 Gm/Ns 200 Ml) 1 gm in 200 mls @ 133.333 mls/hr IVPB TTS [facility]; Protocol Stop: 05/14/18 10:01 Last Admin: 05/09/18 11:42 Dose: Not Given Ferric Sodium Gluconate Complex 125 mg/ Sodium Chloride 110 mls @ 110 mls/hr IVPB DAILY@1400 [facility] Stop: 05/11/18 14:01 Last Admin: 05/09/18 14:00 Dose: 110 mls/hr Insulin Aspart (Novolog) 0 unit SC ACHS [facility]; Protocol Last Admin: 05/10/18 07:52 Dose: Not Given Metoprolol Tartrate (Lopressor) 12.5 mg PO BID [facility] Last Admin: 05/09/18 17:17 Dose: 12.5 mg Mupirocin (Bactroban Ointment) 0 gm TOP DAILY [facility] Last Admin: 05/09/18 10:12 Dose: 1 applic Rosuvastatin Calcium (Crestor) 10 mg PO HS [facility] Last Admin: 05/09/18 21:09 Dose: 10 mg Sitagliptin Phosphate (Januvia) 25 mg PO DAILY [facility] Last Admin: 05/09/18 10:10 Dose: 25 mg Sodium Hypochlorite (Dakins Solution 0.25%) 0 ml TOP DAILY [facility] Last Admin: 05/09/18 10:12 Dose: 1 applic Tamsulosin HCl (Flomax) 0.4 mg PO DAILY [facility] Last Admin: 05/09/18 10:10 Dose: 0.4 mg - Labs Labs: 05/07/18 08:17 05/09/18 19:34 PT 17.9 SECONDS (9.7-12.2) H 05/09/18 19:34 INR 1.6 05/09/18 19:34 APTT 42 SECONDS (21-34) H 05/09/18 19:34 - Constitutional Appears: Well, Non-toxic, No Acute Distress - Extremities Exam Extremities Exam: absent: Calf Tenderness Additional comments: Lower extremity focused exam: Vasc: DP/PT pulses palpable 2/4. Temperature gradient warm to warm. CFT < 3 sec to all digits. No pedal edema noted Derm: Open circular ulceration noted to left lateral malleolus approx 3cm diameter and 0.4cm in depth with 50% fibrotic and 50% granular wound base, with some necrotic tissue noted centrally to wound bed. Macerated wound borders. Less drainage noted to the lateral malleolus ulceration. No tunneling or undermining, no purulence, no fluctuance. Eschar noted to left lateral midfoot with overlying hyperkeratotic tissue, with no purulence drainage expressed today. Multiple lanced fluid-filled blisters noted to dorsum of left foot and left lower leg with no underlying open lesions. Stage 2 pressure ulceration to left heel with thin friable erythematous skin with no break in skin noted Neuro: Protective sensation slightly diminished, gross sensation intact Ortho: No tenderness to palpation of left lower extremity ulcerations - Psychiatric Exam Psychiatric exam: Normal Affect Assessment and Plan - Assessment and Plan (Free Text) Assessment: 73 y/o male with left lower extremity ulcerations to foot and ankle, infected- improving Plan: Patient seen and evaluated with attending Dr Cavanaugh Afebrile, WBC 15.1 on 05/07/18 Wound cx of left ankle; MRSA IV abx per Infecious Disease Dr. 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
[2018-05-10 08:29] LABS: BASO # 0.1 K/uL (0.0-0.2); BASO % 0.5 % (0.0-2.0); EOS # 0.4 K/uL (0.0-0.7); HEMOGLOBIN 8.6 g/dL (12.0-18.0); LYMPH # 0.5 K/uL (1.0-4.3); LYMPH % 3.6 % (20.0-40.0); MEAN CELL VOLUME 95.5 fL (80.0-94.0); MEAN CORPUSCULAR HGB CONC 32.4 g/dL (33.0-37.0); MEAN PLATELET VOLUME 10.1 fL (7.2-11.7); MONO # 0.9 K/uL (0.0-0.8); MONO % 6.7 % (0.0-10.0); NEUT # 11.6 K/uL (1.8-7.0); NEUT % 86.2 % (50.0-75.0); NRBC % 0.1 % (0.0-2.0); PLATELET COUNT 144 K/uL (130-400); RBC 2.77 Mil/uL (4.40-5.90); RED CELL DISTRIBUTION WIDTH 16.7 % (11.5-14.5); WHITE BLOOD COUNT 13.5 K/uL (4.8-10.8)
[2018-05-10 08:50] LABS: ALB/GLOB RATIO 0.6 (1.0-2.1); ALBUMIN 2.2 g/dL (3.5-5.0); CALCIUM 7.8 mg/dl (8.6-10.4)
[2018-05-10] MEDS: Dakin's Topical 0.25%-Half Strength (480 ml) TOP SCH (09:04)
[2018-05-10 09:42] LABS: ANISOCYTOSIS SLIGHT; EOSINOPHIL 2 % (0-4); LYMPHOCYTE 3 % (20-40); MONOCYTE 4 % (0-10); NEUTROPHIL 91 % (50-75); PLATELET ESTIMATE NORMAL (NORMAL); TOTAL CELLS COUNTED 100
[2018-05-10 09:44] LABS: HYPOCHROMIC MODERATE; POLYCHROMIC SLIGHT
[2018-05-10 09:45] LABS: TARGET CELLS SLIGHT
[2018-05-10] MEDS: Piperacillin/Tazobact 2.25 GM in Sodium Chloride 100 ML IVPB SCH ×2 (10:30→21:34)
[2018-05-10] MEDS ORDERED: Iodixanol 320 MG/ML 200 ML BOTTLE IV ONE (10:49)
[2018-05-10] MEDS ORDERED: Midazolam 2 MG/2 ML VIAL ONE ×2 (10:53)
[2018-05-10] MEDS ORDERED: Lidocaine 2% MPF (5 ml) Inj ONE (11:11)
--- NOTE | 2018-05-10 12:38 | PCM.SURG1 ---
Surgeon's Initial Post Op Note - Surgeon's Notes Surgeon: katty Manager Photography: 0 Type of Anesthesia: IV Sedation Anesthesia Administered By: melissa Pre-Operative Diagnosis: gangrene left foot Operative Findings: severe tibial disease. anterior tibial open to foot. PT and Peroneal occluded see films Post-Operative Diagnosis: same Operation Performed: aortofemoral angio via right groin with selective catherization left sfa. retrograde left PT access. manual compression Specimen/Specimens Removed: 0 Estimated Blood Loss: EBL {In ML}: 35 Blood Products Given: N/A Drains Used: No Drains Post-Op Condition: Good Date of Surgery/Procedure: 05/10/18 Time of Surgery/Procedure: 12:38
--- NOTE | 2018-05-10 14:43 | CP.PCM.PN ---
Subjective - Date & Time of Evaluation Date of Evaluation: 05/10/18 Time of Evaluation: 14:41 - Subjective Subjective: s/p angio gangrene same as per surgery- cannot do therapeutic intervention stable dialysis 05/09 Objective - Vital Signs/Intake and Output Vital Signs (last 24 hours): Temp Pulse Resp BP Pulse Ox 98.3 F 83 20 126/68 100 05/10/18 07:18 05/10/18 07:18 05/10/18 07:18 05/10/18 07:18 05/10/18 07:18 Intake and Output: 05/10/18 05/10/18 06:59 18:59 Intake Total 350 Balance 350 - Medications Medications: Current Medications Apixaban (Eliquis) 2.5 mg PO BID [facility] Last Admin: 05/10/18 09:04 Dose: Not Given Calcium Acetate (Phoslo) 1,334 mg PO TIDCC [facility] Last Admin: 05/10/18 12:00 Dose: Not Given Docusate Sodium (Colace) 100 mg PO BID PRN PRN Reason: Constipation Epoetin Linden (Procrit) 10,000 unit IV TTS [facility] Last Admin: 05/09/18 12:15 Dose: 10,000 unit Glipizide (Glucotrol Xl) 5 mg PO DAILY [facility] Last Admin: 05/09/18 10:10 Dose: 5 mg Piperacillin Sod/Tazobactam (Sod 2.25 gm/ Sodium Chloride) 100 mls @ 200 mls/hr IVPB Q12H [facility]; Protocol Last Admin: 05/10/18 10:30 Dose: Not Given Vancomycin/Sodium Chloride (Vancomycin 1 Gm/Ns 200 Ml) 1 gm in 200 mls @ 133.333 mls/hr IVPB TTS [facility]; Protocol Stop: 05/14/18 10:01 Last Admin: 05/09/18 11:42 Dose: Not Given Ferric Sodium Gluconate Complex 125 mg/ Sodium Chloride 110 mls @ 110 mls/hr IVPB DAILY@1400 [facility] Stop: 05/11/18 14:01 Last Admin: 05/09/18 14:00 Dose: 110 mls/hr Insulin Aspart (Novolog) 0 unit SC ACHS [facility]; Protocol Last Admin: 05/10/18 11:30 Dose: Not Given Metoprolol Tartrate (Lopressor) 12.5 mg PO BID [facility] Last Admin: 05/10/18 09:04 Dose: Not Given Mupirocin (Bactroban Ointment) 0 gm TOP DAILY [facility] Last Admin: 05/10/18 09:04 Dose: Not Given Rosuvastatin Calcium (Crestor) 10 mg PO HS [facility] Last Admin: 05/09/18 21:09 Dose: 10 mg Sitagliptin Phosphate (Januvia) 25 mg PO DAILY [facility] Last Admin: 05/10/18 09:04 Dose: Not Given Sodium Hypochlorite (Dakins Solution 0.25%) 0 ml TOP DAILY [facility] Last Admin: 05/10/18 09:04 Dose: Not Given Tamsulosin HCl (Flomax) 0.4 mg PO DAILY [facility] Last Admin: 05/10/18 09:04 Dose: Not Given - Labs Labs: 05/10/18 08:19 05/10/18 08:19 PT 17.9 SECONDS (9.7-12.2) H 05/09/18 19:34 INR 1.6 05/09/18 19:34 APTT 42 SECONDS (21-34) H 05/09/18 19:34 - Constitutional Appears: No Acute Distress, Chronically Ill - Head Exam Head Exam: ATRAUMATIC, NORMAL INSPECTION - Eye Exam Eye Exam: EOMI, Normal appearance - Neck Exam Neck Exam: Normal Inspection. absent: Tenderness - Respiratory Exam Respiratory Exam: Clear to Ausculation Bilateral, NORMAL BREATHING PATTERN - Cardiovascular Exam Cardiovascular Exam: REGULAR RHYTHM, +S1 - GI/Abdominal Exam GI & Abdominal Exam: Soft. absent: Tenderness - Extremities Exam Extremities Exam: Normal Inspection. absent: Tenderness - Neurological Exam Neurological Exam: Awake, CN II-XII Intact - Skin Skin Exam: Dry, Warm Assessment and Plan (1) Cellulitis and abscess of left leg Status: Acute (2) Cardiomyopathy Status: Acute (3) PVD (peripheral vascular disease) Status: Acute (4) PVD (peripheral vascular disease) Status: Acute (5) ESRD (end stage renal disease) on dialysis Status: Chronic (6) Non-insulin dependent type 2 diabetes mellitus Status: Chronic - Assessment and Plan (Free Text) Plan: wound care vascular following gangrenous changes dialysis TTS
[2018-05-10] MEDS: Ferric Sodium Gluconat Complex 125 MG in Sodium Chloride 0.9% 100 ML IVPB SCH (16:01)
--- NOTE | 2018-05-10 18:53 | CP.PCM.PN ---
Subjective - Date & Time of Evaluation Date of Evaluation: 05/10/18 Time of Evaluation: 09:00 - Subjective Subjective: EVENTS NOTED PROGNOSIS FOR LIMB SALVAGE GUARDED IV RX RENEWED Objective - Vital Signs/Intake and Output Vital Signs (last 24 hours): Temp Pulse Resp BP Pulse Ox 97.5 F L 80 18 93/51 L 96 05/10/18 15:00 05/10/18 15:00 05/10/18 15:00 05/10/18 15:00 05/10/18 15:00 Intake and Output: 05/10/18 05/10/18 06:59 18:59 Intake Total 350 Balance 350 - Medications Medications: Current Medications Apixaban (Eliquis) 2.5 mg PO BID [facility] Last Admin: 05/10/18 17:04 Dose: 2.5 mg Calcium Acetate (Phoslo) 1,334 mg PO TIDCC [facility] Last Admin: 05/10/18 17:04 Dose: 1,334 mg Docusate Sodium (Colace) 100 mg PO BID PRN PRN Reason: Constipation Epoetin Linden (Procrit) 10,000 unit IV TTS [facility] Last Admin: 05/09/18 12:15 Dose: 10,000 unit Glipizide (Glucotrol Xl) 5 mg PO DAILY [facility] Last Admin: 05/09/18 10:10 Dose: 5 mg Piperacillin Sod/Tazobactam (Sod 2.25 gm/ Sodium Chloride) 100 mls @ 200 mls/hr IVPB Q12H [facility]; Protocol Last Admin: 05/10/18 10:30 Dose: Not Given Vancomycin/Sodium Chloride (Vancomycin 1 Gm/Ns 200 Ml) 1 gm in 200 mls @ 133.333 mls/hr IVPB TTS [facility]; Protocol Stop: 05/14/18 10:01 Last Admin: 05/09/18 11:42 Dose: Not Given Ferric Sodium Gluconate Complex 125 mg/ Sodium Chloride 110 mls @ 110 mls/hr IVPB DAILY@1400 [facility] Stop: 05/11/18 14:01 Last Admin: 05/10/18 16:01 Dose: 110 mls/hr Insulin Aspart (Novolog) 0 unit SC ACHS [facility]; Protocol Last Admin: 05/10/18 16:44 Dose: Not Given Metoprolol Tartrate (Lopressor) 12.5 mg PO BID [facility] Last Admin: 05/10/18 17:01 Dose: Not Given Mupirocin (Bactroban Ointment) 0 gm TOP DAILY [facility] Last Admin: 05/10/18 09:04 Dose: Not Given Rosuvastatin Calcium (Crestor) 10 mg PO HS [facility] Last Admin: 05/09/18 21:09 Dose: 10 mg Sitagliptin Phosphate (Januvia) 25 mg PO DAILY [facility] Last Admin: 05/10/18 09:04 Dose: Not Given Sodium Hypochlorite (Dakins Solution 0.25%) 0 ml TOP DAILY [facility] Last Admin: 05/10/18 09:04 Dose: Not Given Tamsulosin HCl (Flomax) 0.4 mg PO DAILY [facility] Last Admin: 05/10/18 09:04 Dose: Not Given - Labs Labs: 05/10/18 08:19 05/10/18 08:19 PT 17.9 SECONDS (9.7-12.2) H 05/09/18 19:34 INR 1.6 05/09/18 19:34 APTT 42 SECONDS (21-34) H 05/09/18 19:34 - Constitutional Appears: Non-toxic, Cachectic - Head Exam Head Exam: NORMOCEPHALIC - Eye Exam Eye Exam: absent: Scleral icterus - ENT Exam ENT Exam: Mucous Membranes Dry - Neck Exam Neck Exam: absent: Lymphadenopathy - Respiratory Exam Respiratory Exam: Decreased Breath Sounds - Cardiovascular Exam Cardiovascular Exam: REGULAR RHYTHM - GI/Abdominal Exam GI & Abdominal Exam: Distended, Soft - Rectal Exam Rectal Exam: Deferred - Exam Exam: NORMAL INSPECTION Assessment and Plan (1) Bilateral lower leg cellulitis Status: Acute (2) Cardiomyopathy Status: Acute (3) Cellulitis and abscess of left leg Status: Acute - Assessment and Plan (Free Text) Assessment: IV RX RENEWED
--- NOTE | 2018-05-11 00:59 | CP.PCM.PN ---
Subjective - Date & Time of Evaluation Date of Evaluation: 05/10/18 Time of Evaluation: 20:00 - Subjective Subjective: Patient had left leg angio this AM: severe arterial disease not amenable to surgical intervention. Left foot ulcer clean with IV antibiotics and local wound care. Otherwise, the patient feels better, with better appetite. Objective - Vital Signs/Intake and Output Vital Signs (last 24 hours): Temp Pulse Resp BP Pulse Ox 97.5 F L 80 18 93/54 L 96 05/10/18 15:00 05/10/18 15:00 05/10/18 15:00 05/10/18 19:05 05/10/18 15:00 Intake and Output: 05/10/18 05/11/18 18:59 06:59 Intake Total 300 Balance 300 - Medications Medications: Current Medications Apixaban (Eliquis) 2.5 mg PO BID [facility] Last Admin: 05/10/18 17:04 Dose: 2.5 mg Calcium Acetate (Phoslo) 1,334 mg PO TIDCC [facility] Last Admin: 05/10/18 17:04 Dose: 1,334 mg Docusate Sodium (Colace) 100 mg PO BID PRN PRN Reason: Constipation Epoetin Linden (Procrit) 10,000 unit IV TTS [facility] Last Admin: 05/09/18 12:15 Dose: 10,000 unit Glipizide (Glucotrol Xl) 5 mg PO DAILY [facility] Last Admin: 05/09/18 10:10 Dose: 5 mg Piperacillin Sod/Tazobactam (Sod 2.25 gm/ Sodium Chloride) 100 mls @ 200 mls/hr IVPB Q12H [facility]; Protocol Last Admin: 05/10/18 21:34 Dose: 200 mls/hr Vancomycin/Sodium Chloride (Vancomycin 1 Gm/Ns 200 Ml) 1 gm in 200 mls @ 133.333 mls/hr IVPB TTS [facility]; Protocol Stop: 05/14/18 10:01 Last Admin: 05/09/18 11:42 Dose: Not Given Ferric Sodium Gluconate Complex 125 mg/ Sodium Chloride 110 mls @ 110 mls/hr IVPB DAILY@1400 [facility] Stop: 05/11/18 14:01 Last Admin: 05/10/18 16:01 Dose: 110 mls/hr Insulin Aspart (Novolog) 0 unit SC ACHS [facility]; Protocol Last Admin: 05/10/18 21:27 Dose: Not Given Metoprolol Tartrate (Lopressor) 12.5 mg PO BID [facility] Last Admin: 05/10/18 17:01 Dose: Not Given Mupirocin (Bactroban Ointment) 0 gm TOP DAILY [facility] Last Admin: 05/10/18 09:04 Dose: Not Given Rosuvastatin Calcium (Crestor) 10 mg PO HS [facility] Last Admin: 05/10/18 21:34 Dose: 10 mg Sitagliptin Phosphate (Januvia) 25 mg PO DAILY [facility] Last Admin: 05/10/18 09:04 Dose: Not Given Sodium Hypochlorite (Dakins Solution 0.25%) 0 ml TOP DAILY [facility] Last Admin: 05/10/18 09:04 Dose: Not Given Tamsulosin HCl (Flomax) 0.4 mg PO DAILY [facility] Last Admin: 05/10/18 09:04 Dose: Not Given - Labs Labs: 05/10/18 08:19 05/10/18 08:19 PT 17.9 SECONDS (9.7-12.2) H 05/09/18 19:34 INR 1.6 05/09/18 19:34 APTT 42 SECONDS (21-34) H 05/09/18 19:34 - Constitutional Appears: No Acute Distress, Chronically Ill - Head Exam Head Exam: NORMOCEPHALIC - Eye Exam Eye Exam: Normal appearance - ENT Exam ENT Exam: Normal Exam - Neck Exam Neck Exam: Normal Inspection - Respiratory Exam Respiratory Exam: Clear to Ausculation Bilateral, NORMAL BREATHING PATTERN - Cardiovascular Exam Cardiovascular Exam: Irregular Rhythm - GI/Abdominal Exam GI & Abdominal Exam: Soft, Normal Bowel Sounds - Rectal Exam Rectal Exam: Deferred - Extremities Exam Additional comments: Left foot ulcer clean. - Back Exam Back Exam: NORMAL INSPECTION - Neurological Exam Neurological Exam: Alert, Awake, Oriented x3 - Psychiatric Exam Psychiatric exam: Anxious - Skin Skin Exam: Dry, Warm Assessment and Plan (1) Fall Status: Acute (2) Contusion of head Status: Resolved (3) Contusion of hip, left Status: Resolved (4) Bilateral lower leg cellulitis Status: Acute (5) Atrial fibrillation Status: Chronic (6) ESRD on hemodialysis Status: Chronic (7) Uncontrolled diabetes mellitus Status: Chronic
--- NOTE | 2018-05-11 06:24 | VAS ---
DATE: 05/10/2018 OPERATIVE ANGIOGRAM REPORT PREOPERATIVE DIAGNOSIS: Gangrene, left foot. POSTOPERATIVE DIAGNOSIS: Gangrene, left foot. PROCEDURES CARRIED OUT: Aortofemoral angiogram via right groin with selective catheterization of left femoral artery and retrograde cannulation of left posterior tibial artery. SURGEON: Kulwant Macias Jr., MD RESTAURANT DISTRICT MANAGER: None. ANESTHESIOLOGIST: Suresh Anderson DO ANESTHESIA: Local with sedation. DESCRIPTION OF PROCEDURE: The patient is a 73-year-old man with successful intervention on his left leg approximately a year ago with a placement of a stent in the femoral artery. Below this, he had an anterior tibial runoff. He now presents with gangrenous changes in the left foot on multiple occasions. OPERATIVE FINDINGS: The aorta and renal arteries were widely patent. The iliac arteries were widely patent. The common femoral, superficial femoral and profunda femoris arteries were widely patent. Down to the level of the knee, all vessels were patent. On the right side, we were unable to obtain detailed pictures due to the patient's body habitus and slight contracture with the bending of the left knee. Below this on the left side, the anterior tibial was patent to the foot. There was severe disease in the foot, and the posterior tibial artery occluded soon after its origin and reconstituted distally. The peroneal artery was diseased throughout its entire course. Subsequent to the performance of the diagnostic arteriogram, a stiff-angled guidewire was advanced over the aortic bifurcation, and a 6-Angolan sheath was positioned at the knee joint. Using road mapping techniques, attempts were made across the posterior tibial, and this was unsuccessful despite using multiple devices and wires. After this was done, we then did a retrograde cannulation using hockey stick ultrasound probe and using the safety technician, we were unable to firmly establish wire placement up into the significant portion of the posterior artery. We were able to access it, but we were unable to carry out any significant placement. We then terminated the procedure. BLOOD LOSS: 30 mL. OPERATION CARRIED OUT: Aortofemoral angiogram with selective catheterization of left femoral artery and right retrograde cannulation in the left pedal artery unsuccessful. No intervention was undertaken. Kulwant Macias Jr., MD [facility]
[2018-05-11] MEDS: (Novolog) Insulin Aspart, Recombinant 100 u/ml 10 ml vial SC SCH ×4 (09:21→22:26)
[2018-05-11] MEDS: Vancomycin 1 gm/NS 200 ml 1 GM/200 ML BAG IVPB SCH (09:22)
--- NOTE | 2018-05-11 09:31 | CP.PCM.PN ---
Subjective - Date & Time of Evaluation Date of Evaluation: 05/11/18 Time of Evaluation: 09:28 - Subjective Subjective: feels better wounds LE clean, still with gangrene for dialysis now Hg low- on EPO. IV Fe Objective - Vital Signs/Intake and Output Vital Signs (last 24 hours): Temp Pulse Resp BP Pulse Ox 97.2 F L 81 20 96/35 L 91 L 05/10/18 23:29 05/10/18 23:29 05/10/18 23:29 05/10/18 23:29 05/10/18 23:29 Intake and Output: 05/11/18 05/11/18 06:59 18:59 Intake Total 360 Balance 360 - Medications Medications: Current Medications Apixaban (Eliquis) 2.5 mg PO BID [facility] Last Admin: 05/10/18 17:04 Dose: 2.5 mg Calcium Acetate (Phoslo) 1,334 mg PO TIDCC [facility] Last Admin: 05/11/18 09:22 Dose: 1,334 mg Docusate Sodium (Colace) 100 mg PO BID PRN PRN Reason: Constipation Epoetin Linden (Procrit) 10,000 unit IV TTS [facility] Last Admin: 05/09/18 12:15 Dose: 10,000 unit Glipizide (Glucotrol Xl) 5 mg PO DAILY [facility] Last Admin: 05/09/18 10:10 Dose: 5 mg Piperacillin Sod/Tazobactam (Sod 2.25 gm/ Sodium Chloride) 100 mls @ 200 mls/hr IVPB Q12H [facility]; Protocol Last Admin: 05/10/18 21:34 Dose: 200 mls/hr Vancomycin/Sodium Chloride (Vancomycin 1 Gm/Ns 200 Ml) 1 gm in 200 mls @ 133.333 mls/hr IVPB TTS [facility]; Protocol Stop: 05/14/18 10:01 Last Admin: 05/09/18 11:42 Dose: Not Given Ferric Sodium Gluconate Complex 125 mg/ Sodium Chloride 110 mls @ 110 mls/hr IVPB DAILY@1400 [facility] Stop: 05/11/18 14:01 Last Admin: 05/10/18 16:01 Dose: 110 mls/hr Insulin Aspart (Novolog) 0 unit SC ACHS [facility]; Protocol Last Admin: 05/11/18 09:21 Dose: 4 units Metoprolol Tartrate (Lopressor) 12.5 mg PO BID [facility] Last Admin: 05/10/18 17:01 Dose: Not Given Mupirocin (Bactroban Ointment) 0 gm TOP DAILY [facility] Last Admin: 05/10/18 09:04 Dose: Not Given Rosuvastatin Calcium (Crestor) 10 mg PO HS [facility] Last Admin: 05/10/18 21:34 Dose: 10 mg Sitagliptin Phosphate (Januvia) 25 mg PO DAILY [facility] Last Admin: 05/10/18 09:04 Dose: Not Given Sodium Hypochlorite (Dakins Solution 0.25%) 0 ml TOP DAILY [facility] Last Admin: 05/10/18 09:04 Dose: Not Given Tamsulosin HCl (Flomax) 0.4 mg PO DAILY [facility] Last Admin: 05/10/18 09:04 Dose: Not Given - Labs Labs: 05/10/18 08:19 05/10/18 08:19 PT 17.9 SECONDS (9.7-12.2) H 05/09/18 19:34 INR 1.6 05/09/18 19:34 APTT 42 SECONDS (21-34) H 05/09/18 19:34 - Constitutional Appears: No Acute Distress, Chronically Ill - Head Exam Head Exam: ATRAUMATIC, NORMAL INSPECTION - Eye Exam Eye Exam: EOMI, Normal appearance - Neck Exam Neck Exam: Normal Inspection. absent: Tenderness - Respiratory Exam Respiratory Exam: Clear to Ausculation Bilateral, NORMAL BREATHING PATTERN - Cardiovascular Exam Cardiovascular Exam: REGULAR RHYTHM, +S1 - GI/Abdominal Exam GI & Abdominal Exam: Soft. absent: Tenderness - Extremities Exam Extremities Exam: Normal Inspection. absent: Tenderness - Neurological Exam Neurological Exam: Awake, CN II-XII Intact - Skin Skin Exam: Dry, Warm Assessment and Plan (1) Cellulitis and abscess of left leg Status: Acute (2) Cardiomyopathy Status: Acute (3) PVD (peripheral vascular disease) Status: Acute (4) PVD (peripheral vascular disease) Status: Acute (5) ESRD (end stage renal disease) on dialysis Status: Chronic (6) Non-insulin dependent type 2 diabetes mellitus Status: Chronic - Assessment and Plan (Free Text) Plan: Dialysis now and TTS Wound care IV ABs EPO, IV Fe
[2018-05-11] MEDS: GlipiZIDE 5 mg SR Tab PO SCH (11:07)
[2018-05-11] MEDS: Piperacillin/Tazobact 2.25 GM in Sodium Chloride 100 ML IVPB SCH ×2 (11:07→21:46)
[2018-05-11] MEDS: Dakin's Topical 0.25%-Half Strength (480 ml) TOP SCH (11:16)
--- NOTE | 2018-05-11 13:28 | VASCLAB ---
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 TECHNIQUE: NEEDLE GUIDANCE FINDINGS: Ultrasound Guidance of left posterior tibial artery was provided for needle guidance. IMPRESSION: Ultrasound guidance was provided to Dr. Macias.
--- NOTE | 2018-05-11 13:43 | CP.PCM.PN ---
Subjective - Date & Time of Evaluation Date of Evaluation: 05/11/18 Time of Evaluation: 14:00 - Subjective Subjective: Podiatry Progress Note: Dr. Cavanaugh 73 year old male patient examined and evaluated at bedside for left lateral ankle ulceration and multiple superficial ulcerations to left foot. Patient seen resting comfortably in bed, in NAD. Patient denies of pain to the lower extremity bilaterally. Reports doing okay. Denies acute overnight events. Denies N/V/F/SOB/CP/Chills. Objective - Vital Signs/Intake and Output Vital Signs (last 24 hours): Temp Pulse Resp BP Pulse Ox 98.3 F 88 20 127/51 L 100 05/11/18 08:15 05/11/18 11:05 05/11/18 08:15 05/11/18 11:05 05/11/18 08:15 Intake and Output: 05/11/18 05/11/18 06:59 18:59 Intake Total 360 Balance 360 - Medications Medications: Current Medications Apixaban (Eliquis) 2.5 mg PO BID [facility] Last Admin: 05/11/18 11:07 Dose: 2.5 mg Calcium Acetate (Phoslo) 1,334 mg PO TIDCC [facility] Last Admin: 05/11/18 12:58 Dose: 1,334 mg Docusate Sodium (Colace) 100 mg PO BID PRN PRN Reason: Constipation Epoetin Linden (Procrit) 10,000 unit IV TTS [facility] Last Admin: 05/09/18 12:15 Dose: 10,000 unit Glipizide (Glucotrol Xl) 5 mg PO DAILY [facility] Last Admin: 05/11/18 11:07 Dose: 5 mg Piperacillin Sod/Tazobactam (Sod 2.25 gm/ Sodium Chloride) 100 mls @ 200 mls/hr IVPB Q12H [facility]; Protocol Last Admin: 05/11/18 11:07 Dose: 200 mls/hr Vancomycin/Sodium Chloride (Vancomycin 1 Gm/Ns 200 Ml) 1 gm in 200 mls @ 133.333 mls/hr IVPB TTS [facility]; Protocol Stop: 05/14/18 10:01 Last Admin: 05/09/18 11:42 Dose: Not Given Ferric Sodium Gluconate Complex 125 mg/ Sodium Chloride 110 mls @ 110 mls/hr IVPB DAILY@1400 [facility] Stop: 05/11/18 14:01 Last Admin: 05/10/18 16:01 Dose: 110 mls/hr Insulin Aspart (Novolog) 0 unit SC ACHS [facility]; Protocol Last Admin: 05/11/18 12:58 Dose: 5 units Metoprolol Tartrate (Lopressor) 12.5 mg PO BID [facility] Last Admin: 05/11/18 11:08 Dose: Not Given Mupirocin (Bactroban Ointment) 0 gm TOP DAILY [facility] Last Admin: 05/11/18 11:16 Dose: Not Given Rosuvastatin Calcium (Crestor) 10 mg PO HS [facility] Last Admin: 05/10/18 21:34 Dose: 10 mg Sitagliptin Phosphate (Januvia) 25 mg PO DAILY [facility] Last Admin: 05/11/18 11:07 Dose: 25 mg Sodium Hypochlorite (Dakins Solution 0.25%) 0 ml TOP DAILY [facility] Last Admin: 05/11/18 11:16 Dose: Not Given Tamsulosin HCl (Flomax) 0.4 mg PO DAILY [facility] Last Admin: 05/11/18 11:07 Dose: 0.4 mg - Labs Labs: 05/10/18 08:19 05/10/18 08:19 PT 17.9 SECONDS (9.7-12.2) H 05/09/18 19:34 INR 1.6 05/09/18 19:34 APTT 42 SECONDS (21-34) H 05/09/18 19:34 - Constitutional Appears: Well, Non-toxic, No Acute Distress - Extremities Exam Extremities Exam: absent: Calf Tenderness Additional comments: Lower extremity focused exam: Vasc: DP/PT pulses palpable 2/4. Temperature gradient warm to warm. CFT < 3 sec to all digits. No pedal edema noted Derm: Open circular ulceration noted to left lateral malleolus approx 3cm diameter and 0.4cm in depth with 50% fibrotic and 50% granular wound base, with some necrotic tissue noted centrally to wound bed. Macerated wound borders. Less drainage noted to the lateral malleolus ulceration. No tunneling or undermining, no purulence, no fluctuance. Eschar noted to left lateral midfoot with overlying hyperkeratotic tissue, with no purulence drainage expressed today. Multiple lanced fluid-filled blisters noted to dorsum of left foot and left lower leg with no underlying open lesions. Stage 2 pressure ulceration to left heel with thin friable erythematous skin with no break in skin noted Right heel with DTI noted, no open lesions Neuro: Protective sensation slightly diminished, gross sensation intact Ortho: No tenderness to palpation of left lower extremity ulcerations - Neurological Exam Neurological Exam: Alert, Awake, Oriented x3 - Psychiatric Exam Psychiatric exam: Normal Affect, Normal Mood Assessment and Plan - Assessment and Plan (Free Text) Assessment: 73 y/o male with left lower extremity ulcerations to foot and ankle, infected- improving and right heel DTI-stable Plan: Patient seen and evaluated with attending Dr Cavanaugh Afebrile, WBC 13.5 on 05/10/18 Wound cx of left ankle; MRSA Blood culture: MRSA IV abx per Infecious Disease Dr. Bailey Ankle x-rays reviewed- no acute osseous findings are noted Bactroban ordered, podiatry to continue with local wound care Cleansed ulcerations with copious saline, dressed ulcerations with bactroban Patient s/p aortofemoral angiogram. No intervention was undertaken. Podiatry will provide local wound care No surgical intervention at this time by podiatry Multipodus boots to be worn at all times in bed to left and right Please dispense multipodus boots to right foot, thank you Will continue to follow
--- NOTE | 2018-05-11 14:17 | CP.PCM.PN ---
Subjective - Date & Time of Evaluation Date of Evaluation: 05/11/18 Time of Evaluation: 11:00 - Subjective Subjective: Patient complaining of foot pain. Denies hip pain. Still with neck stiffness. Review of Systems - Review of Systems Systems not reviewed;Unavailable: Dementia Objective - Vital Signs/Intake and Output Vital Signs (last 24 hours): Temp Pulse Resp BP Pulse Ox 98.3 F 88 20 127/51 L 100 05/11/18 08:15 05/11/18 11:05 05/11/18 08:15 05/11/18 11:05 05/11/18 08:15 Intake and Output: 05/11/18 05/11/18 06:59 18:59 Intake Total 360 Balance 360 - Medications Medications: Current Medications Apixaban (Eliquis) 2.5 mg PO BID [facility] Last Admin: 05/11/18 11:07 Dose: 2.5 mg Calcium Acetate (Phoslo) 1,334 mg PO TIDCC [facility] Last Admin: 05/11/18 12:58 Dose: 1,334 mg Docusate Sodium (Colace) 100 mg PO BID PRN PRN Reason: Constipation Epoetin Linden (Procrit) 10,000 unit IV TTS [facility] Last Admin: 05/09/18 12:15 Dose: 10,000 unit Glipizide (Glucotrol Xl) 5 mg PO DAILY [facility] Last Admin: 05/11/18 11:07 Dose: 5 mg Piperacillin Sod/Tazobactam (Sod 2.25 gm/ Sodium Chloride) 100 mls @ 200 mls/hr IVPB Q12H [facility]; Protocol Last Admin: 05/11/18 11:07 Dose: 200 mls/hr Vancomycin/Sodium Chloride (Vancomycin 1 Gm/Ns 200 Ml) 1 gm in 200 mls @ 133.333 mls/hr IVPB TTS [facility]; Protocol Stop: 05/14/18 10:01 Last Admin: 05/09/18 11:42 Dose: Not Given Insulin Aspart (Novolog) 0 unit SC ACHS [facility]; Protocol Last Admin: 05/11/18 12:58 Dose: 5 units Metoprolol Tartrate (Lopressor) 12.5 mg PO BID [facility] Last Admin: 05/11/18 11:08 Dose: Not Given Mupirocin (Bactroban Ointment) 0 gm TOP DAILY [facility] Last Admin: 05/11/18 11:16 Dose: Not Given Rosuvastatin Calcium (Crestor) 10 mg PO [facility] Last Admin: 05/10/18 21:34 Dose: 10 mg Sitagliptin Phosphate (Januvia) 25 mg PO DAILY [facility] Last Admin: 05/11/18 11:07 Dose: 25 mg Sodium Hypochlorite (Dakins Solution 0.25%) 0 ml TOP DAILY [facility] Last Admin: 05/11/18 11:16 Dose: Not Given Tamsulosin HCl (Flomax) 0.4 mg PO DAILY [facility] Last Admin: 05/11/18 11:07 Dose: 0.4 mg - Labs Labs: 05/10/18 08:19 05/10/18 08:19 PT 17.9 SECONDS (9.7-12.2) H 05/09/18 19:34 INR 1.6 05/09/18 19:34 APTT 42 SECONDS (21-34) H 05/09/18 19:34 - Constitutional Appears: Well, No Acute Distress - Neck Exam Neck Exam: Full ROM, Normal Inspection Additional comments: mild pain with ROM, no tension signs - Respiratory Exam Respiratory Exam: NORMAL BREATHING PATTERN - Extremities Exam Additional comments: no pain with hip AROM/PROM calves soft NT neg homans - Neurological Exam Neurological Exam: Alert, Awake - Psychiatric Exam Psychiatric exam: Normal Affect, Normal Mood - Skin Skin Exam: Dry, Intact, Normal Color, Warm Assessment and Plan (1) Osteoarthritis of left hip Assessment & Plan: no clinical suspicion of septic arthritis at this time PT/OT when appropriate At this time, patient complaining of pain in heels and from sacral wound, no hip pain patient is not a surgical candidate at this time for hip replacement surgery no fracture on CT +blood cultures VTE proph MRI left hip reviewed, does not change orthopedic mgmt at this time no orthopedic intervention planned at this time d/w Dr. Weiner, agrees with above, patient can follow up as outpatient [phone] Status: Acute
[2018-05-11] MEDS: Ferric Sodium Gluconat Complex 125 MG in Sodium Chloride 0.9% 100 ML IVPB SCH (14:19)
[2018-05-11] MEDS ORDERED: Ferric Sodium Gluconat Complex 125 MG in Sodium Chloride 0.9% 100 ML IVPB SCH (17:00)
[2018-05-11] MEDS: Epoetin Alfa 10,000 unit/ml Dialysis IV SCH (17:05)
--- NOTE | 2018-05-11 22:37 | CP.PCM.PN ---
Subjective - Date & Time of Evaluation Date of Evaluation: 05/11/18 Time of Evaluation: 12:30 - Subjective Subjective: Patient has no complaint. Left foot ulcer clean. Repeated blood culture still grow MRSA. Objective - Vital Signs/Intake and Output Vital Signs (last 24 hours): Temp Pulse Resp BP Pulse Ox 97.3 F L 92 H 20 119/60 96 05/11/18 18:14 05/11/18 18:14 05/11/18 18:14 05/11/18 18:14 05/11/18 18:14 Intake and Output: 05/11/18 05/12/18 18:59 06:59 Intake Total 100 Balance 100 - Medications Medications: Current Medications Apixaban (Eliquis) 2.5 mg PO BID [facility] Last Admin: 05/11/18 18:59 Dose: 2.5 mg Calcium Acetate (Phoslo) 1,334 mg PO TIDCC [facility] Last Admin: 05/11/18 17:00 Dose: Not Given Docusate Sodium (Colace) 100 mg PO BID PRN PRN Reason: Constipation Epoetin Linden (Procrit) 10,000 unit IV TTS [facility] Last Admin: 05/11/18 17:05 Dose: 10,000 unit Glipizide (Glucotrol Xl) 5 mg PO DAILY [facility] Last Admin: 05/11/18 11:07 Dose: 5 mg Piperacillin Sod/Tazobactam (Sod 2.25 gm/ Sodium Chloride) 100 mls @ 200 mls/hr IVPB Q12H [facility]; Protocol Last Admin: 05/11/18 21:46 Dose: 200 mls/hr Vancomycin/Sodium Chloride (Vancomycin 1 Gm/Ns 200 Ml) 1 gm in 200 mls @ 133.333 mls/hr IVPB TTS [facility]; Protocol Stop: 05/14/18 10:01 Last Admin: 05/11/18 09:22 Dose: Not Given Insulin Aspart (Novolog) 0 unit SC ACHS [facility]; Protocol Last Admin: 05/11/18 22:26 Dose: Not Given Metoprolol Tartrate (Lopressor) 12.5 mg PO BID [facility] Last Admin: 05/11/18 19:00 Dose: Not Given Mupirocin (Bactroban Ointment) 0 gm TOP DAILY [facility] Last Admin: 05/11/18 11:16 Dose: Not Given Rosuvastatin Calcium (Crestor) 10 mg PO HS [facility] Last Admin: 05/11/18 21:46 Dose: 10 mg Sitagliptin Phosphate (Januvia) 25 mg PO DAILY [facility] Last Admin: 05/11/18 11:07 Dose: 25 mg Sodium Hypochlorite (Dakins Solution 0.25%) 0 ml TOP DAILY [facility] Last Admin: 05/11/18 11:16 Dose: Not Given Tamsulosin HCl (Flomax) 0.4 mg PO DAILY [facility] Last Admin: 05/11/18 11:07 Dose: 0.4 mg - Labs Labs: 05/10/18 08:19 05/10/18 08:19 PT 17.9 SECONDS (9.7-12.2) H 05/09/18 19:34 INR 1.6 05/09/18 19:34 APTT 42 SECONDS (21-34) H 05/09/18 19:34 - Constitutional Appears: No Acute Distress, Chronically Ill - Head Exam Head Exam: NORMAL INSPECTION - Eye Exam Eye Exam: Normal appearance - ENT Exam ENT Exam: Mucous Membranes Moist - Neck Exam Neck Exam: Normal Inspection - Respiratory Exam Respiratory Exam: Rhonchi - Cardiovascular Exam Cardiovascular Exam: Irregular Rhythm, Murmur - GI/Abdominal Exam GI & Abdominal Exam: Soft, Normal Bowel Sounds - Rectal Exam Rectal Exam: Deferred - Extremities Exam Additional comments: left foot ulcer clean. - Back Exam Back Exam: NORMAL INSPECTION - Neurological Exam Neurological Exam: Alert, Awake, Oriented x3 - Psychiatric Exam Psychiatric exam: Anxious Assessment and Plan (1) Fall Status: Acute (2) Contusion of head Status: Resolved (3) Contusion of hip, left Status: Resolved (4) Bilateral lower leg cellulitis Status: Acute (5) Atrial fibrillation Status: Chronic (6) ESRD on hemodialysis Status: Chronic (7) Uncontrolled diabetes mellitus Status: Chronic (8) Bacteremia Assessment & Plan: MRSA bacteremia. Needs TREVA to r/o infective endocarditis. To continue IV Va ncomycin Status: Acute
[2018-05-12] MEDS ORDERED: Oxycodone/Acetaminophen 5/325 mg Tab PO PRN (07:40)
--- NOTE | 2018-05-12 08:09 | CP.PCM.PN ---
Subjective - Date & Time of Evaluation Date of Evaluation: 05/12/18 Time of Evaluation: 08:07 - Subjective Subjective: Patient sleeping, complains of continued foot pain and neck stiffness when awakened. Review of Systems - Review of Systems All systems: reviewed and no additional remarkable complaints except Objective - Vital Signs/Intake and Output Vital Signs (last 24 hours): Temp Pulse Resp BP Pulse Ox 98.2 F 83 20 138/55 L 95 05/11/18 23:50 05/11/18 23:50 05/11/18 23:50 05/11/18 23:50 05/11/18 23:50 Intake and Output: 05/12/18 05/12/18 06:59 18:59 Intake Total 100 Balance 100 - Medications Medications: Current Medications Apixaban (Eliquis) 2.5 mg PO BID [facility] Last Admin: 05/11/18 18:59 Dose: 2.5 mg Calcium Acetate (Phoslo) 1,334 mg PO TIDCC [facility] Last Admin: 05/11/18 17:00 Dose: Not Given Docusate Sodium (Colace) 100 mg PO BID PRN PRN Reason: Constipation Epoetin Linden (Procrit) 10,000 unit IV TTS [facility] Last Admin: 05/11/18 17:05 Dose: 10,000 unit Glipizide (Glucotrol Xl) 5 mg PO DAILY [facility] Last Admin: 05/11/18 11:07 Dose: 5 mg Piperacillin Sod/Tazobactam (Sod 2.25 gm/ Sodium Chloride) 100 mls @ 200 mls/hr IVPB Q12H [facility]; Protocol Last Admin: 05/11/18 21:46 Dose: 200 mls/hr Vancomycin/Sodium Chloride (Vancomycin 1 Gm/Ns 200 Ml) 1 gm in 200 mls @ 133.333 mls/hr IVPB TTS [facility]; Protocol Stop: 05/14/18 10:01 Last Admin: 05/11/18 09:22 Dose: Not Given Insulin Aspart (Novolog) 0 unit SC ACHS [facility]; Protocol Last Admin: 05/11/18 22:26 Dose: Not Given Metoprolol Tartrate (Lopressor) 12.5 mg PO BID [facility] Last Admin: 05/11/18 19:00 Dose: Not Given Mupirocin (Bactroban Ointment) 0 gm TOP DAILY [facility] Last Admin: 05/11/18 11:16 Dose: Not Given Oxycodone/Acetaminophen (Percocet 5/325 Mg Tab) 1 tab PO Q4H PRN PRN Reason: Pain, moderate (4-7) Stop: 05/15/18 07:41 Rosuvastatin Calcium (Crestor) 10 mg PO HS [facility] Last Admin: 05/11/18 21:46 Dose: 10 mg Sitagliptin Phosphate (Januvia) 25 mg PO DAILY [facility] Last Admin: 05/11/18 11:07 Dose: 25 mg Sodium Hypochlorite (Dakins Solution 0.25%) 0 ml TOP DAILY [facility] Last Admin: 05/11/18 11:16 Dose: Not Given Tamsulosin HCl (Flomax) 0.4 mg PO DAILY [facility] Last Admin: 05/11/18 11:07 Dose: 0.4 mg - Labs Labs: 05/10/18 08:19 05/10/18 08:19 PT 17.9 SECONDS (9.7-12.2) H 05/09/18 19:34 INR 1.6 05/09/18 19:34 APTT 42 SECONDS (21-34) H 05/09/18 19:34 - Constitutional Appears: Well, No Acute Distress - Neck Exam Neck Exam: Full ROM, Normal Inspection Additional comments: mild pain with AROM neg tension signs - Respiratory Exam Respiratory Exam: NORMAL BREATHING PATTERN - Extremities Exam Additional comments: no pain with hip ROM B calves soft NT neg homans - Neurological Exam Neurological Exam: Alert, Awake Neuro motor strength exam: Left Lower Extremity: 5, Right Lower Extremity: 5 - Psychiatric Exam Psychiatric exam: Normal Affect, Normal Mood - Skin Skin Exam: Dry, Intact, Normal Color, Warm Assessment and Plan (1) Osteoarthritis of left hip Assessment & Plan: no clinical suspicion of septic arthritis at this time PT/OT when appropriate At this time, patient complaining of pain in heels and from sacral wound, no hip pain patient is not a surgical candidate at this time for hip replacement surgery no fracture on CT +blood cultures VTE proph MRI left hip reviewed, does not change orthopedic mgmt at this time no orthopedic intervention planned at this time d/w Dr. Weiner, agrees with above, patient can follow up as outpatient [phone] Status: Acute
[2018-05-12] MEDS: (Novolog) Insulin Aspart, Recombinant 100 u/ml 10 ml vial SC SCH ×4 (08:19→21:57)
[2018-05-12] MEDS: Piperacillin/Tazobact 2.25 GM in Sodium Chloride 100 ML IVPB SCH ×2 (10:32→21:59)
[2018-05-12] MEDS: Dakin's Topical 0.25%-Half Strength (480 ml) TOP SCH (10:33)
[2018-05-12] MEDS: GlipiZIDE 5 mg SR Tab PO SCH (10:33)
--- NOTE | 2018-05-12 13:21 | CP.PCM.PN ---
Subjective - Date & Time of Evaluation Date of Evaluation: 05/12/18 Time of Evaluation: 13:18 - Subjective Subjective: stable dialysis 05/11- UF 1800ml appears sluggish, depressed On IV ABs for MRSA wound wounds clean Objective - Vital Signs/Intake and Output Vital Signs (last 24 hours): Temp Pulse Resp BP Pulse Ox 98.2 F 96 H 20 124/60 97 05/12/18 08:00 05/12/18 10:31 05/12/18 08:00 05/12/18 10:31 05/12/18 08:00 Intake and Output: 05/12/18 05/12/18 06:59 18:59 Intake Total 100 Balance 100 - Medications Medications: Current Medications Apixaban (Eliquis) 2.5 mg PO BID [facility] Last Admin: 05/12/18 10:32 Dose: 2.5 mg Calcium Acetate (Phoslo) 1,334 mg PO TIDCC [facility] Last Admin: 05/12/18 13:01 Dose: 1,334 mg Docusate Sodium (Colace) 100 mg PO BID PRN PRN Reason: Constipation Epoetin Linden (Procrit) 10,000 unit IV TTS [facility] Last Admin: 05/11/18 17:05 Dose: 10,000 unit Glipizide (Glucotrol Xl) 5 mg PO DAILY [facility] Last Admin: 05/12/18 10:33 Dose: 5 mg Piperacillin Sod/Tazobactam (Sod 2.25 gm/ Sodium Chloride) 100 mls @ 200 mls/hr IVPB Q12H [facility]; Protocol Last Admin: 05/12/18 10:32 Dose: 200 mls/hr Vancomycin/Sodium Chloride (Vancomycin 1 Gm/Ns 200 Ml) 1 gm in 200 mls @ 133.333 mls/hr IVPB TTS [facility]; Protocol Stop: 05/14/18 10:01 Last Admin: 05/11/18 09:22 Dose: Not Given Insulin Aspart (Novolog) 0 unit SC ACHS [facility]; Protocol Last Admin: 05/12/18 13:00 Dose: 3 units Metoprolol Tartrate (Lopressor) 12.5 mg PO BID [facility] Last Admin: 05/12/18 10:32 Dose: 12.5 mg Mupirocin (Bactroban Ointment) 0 gm TOP DAILY [facility] Last Admin: 05/12/18 10:33 Dose: Not Given Oxycodone/Acetaminophen (Percocet 5/325 Mg Tab) 1 tab PO Q4H PRN PRN Reason: Pain, moderate (4-7) Stop: 05/15/18 07:41 Last Admin: 05/12/18 08:11 Dose: 1 tab Rosuvastatin Calcium (Crestor) 10 mg PO HS [facility] Last Admin: 05/11/18 21:46 Dose: 10 mg Sitagliptin Phosphate (Januvia) 25 mg PO DAILY [facility] Last Admin: 05/12/18 10:32 Dose: 25 mg Sodium Hypochlorite (Dakins Solution 0.25%) 0 ml TOP DAILY [facility] Last Admin: 05/12/18 10:33 Dose: Not Given Tamsulosin HCl (Flomax) 0.4 mg PO DAILY [facility] Last Admin: 05/12/18 10:31 Dose: 0.4 mg - Labs Labs: 05/10/18 08:19 05/10/18 08:19 PT 17.9 SECONDS (9.7-12.2) H 05/09/18 19:34 INR 1.6 05/09/18 19:34 APTT 42 SECONDS (21-34) H 05/09/18 19:34 - Constitutional Appears: No Acute Distress, Chronically Ill - Head Exam Head Exam: ATRAUMATIC, NORMAL INSPECTION - Eye Exam Eye Exam: EOMI, Normal appearance - Neck Exam Neck Exam: Normal Inspection. absent: Tenderness - Respiratory Exam Respiratory Exam: Clear to Ausculation Bilateral, NORMAL BREATHING PATTERN - Cardiovascular Exam Cardiovascular Exam: REGULAR RHYTHM, +S1 - GI/Abdominal Exam GI & Abdominal Exam: Soft. absent: Tenderness - Extremities Exam Extremities Exam: Pedal Edema, Tenderness - Neurological Exam Neurological Exam: Awake, CN II-XII Intact - Skin Skin Exam: Dry, Warm Assessment and Plan (1) Cellulitis and abscess of left leg Status: Acute (2) Cardiomyopathy Status: Acute (3) PVD (peripheral vascular disease) Status: Acute (4) PVD (peripheral vascular disease) Status: Acute (5) ESRD (end stage renal disease) on dialysis Status: Chronic (6) Non-insulin dependent type 2 diabetes mellitus Status: Chronic - Assessment and Plan (Free Text) Plan: same dialysis schedule TTS IV ABs wound care monitor BP- stable now
[2018-05-12] MEDS ORDERED: Ferric Sodium Gluconat Complex 62.5 mg/5 ml Vial IVPB SCH (14:00)
[2018-05-12] MEDS: Ferric Sodium Gluconat Complex 125 MG in Sodium Chloride 0.9% 100 ML IVPB SCH (14:23)
--- NOTE | 2018-05-12 18:02 | CARD ---
APPROVED REPORT Date of service: 05/12/2018 EXAM: LIMITED Two-dimensional and M-mode echocardiogram. Mitral Valve E/A ratio0.0 TDI E/Lateral E'0.0E/Medial E'0.0 Tricuspid Valve TR Peak [id number] Peak [id number] LEFT VENTRICLE The left ventricle is normal size. There is normal left ventricular wall thickness. The left ventricular function is low normal. The left ventricular ejection fraction is visually 50% No regional wall motion abnormalities noted. The left ventricular diastolic function is inconclusive No left ventricle thrombus noted on this study. There is no ventricular septal defect visualized. There is no left ventricular aneurysm. There is no mass noted in the left ventricle. RIGHT VENTRICLE The right ventricle is markedly dilated. There is normal right ventricular wall thickness. The right ventricular systolic function is markedly reduced ATRIA The left atrium size is dilated The right atrium size is markedly dilated. The interatrial septum is intact with no evidence for an atrial septal defect. AORTIC VALVE The aortic valve is normal in structure and function. Mild aortic regurgitation is present. There is no aortic valvular stenosis. There is no aortic valvular vegetation. MITRAL VALVE The mitral valve is normal in structure and function. There is no evidence of mitral valve prolapse. There is no mitral valve stenosis. There is no mitral valve regurgitation noted. TRICUSPID VALVE The tricuspid valve is normal in structure and function. There is Mild tricuspid valve regurgitation noted. IVC was not assessed. Gradient across tricuspid valve was 55 mm Hg, estimated pa systolic pressure is at least 65 mm Hg, possible higher. There is no tricuspid valve prolapse or vegetation. There is no tricuspid valve stenosis. PULMONIC VALVE . GREAT VESSELS The aortic root is normal in size. The ascending aorta is normal in size. Not seen. PERICARDIAL EFFUSION A small pericardial effusion is noted A pleural effusion is seen. <Conclusion> The left ventricular function is low normal.The left ventricular ejection fraction is visually 50% The left atrium was not meassured but appears dilated. The right ventricle is markedly dilated. The right ventricular systolic function is markedly reduced. The right atrium size is markedly dilated. There is Mild tricuspid valve regurgitation noted. IVC was not assessed. Gradient across tricuspid valve was 55 mm Hg, estimated pa systolic pressure is at least 65 mm Hg, possibly higher. A small pericardial effusion is noted A pleural effusion is seen.
--- NOTE | 2018-05-12 19:56 | CP.PCM.PN ---
Subjective - Date & Time of Evaluation Date of Evaluation: 05/12/18 Time of Evaluation: 08:00 - Subjective Subjective: blood c/s neg x 1 day awake alert weak nad Objective - Vital Signs/Intake and Output Vital Signs (last 24 hours): Temp Pulse Resp BP Pulse Ox 97.8 F 76 20 128/59 L 100 05/12/18 15:30 05/12/18 15:30 05/12/18 15:30 05/12/18 15:30 05/12/18 15:30 - Medications Medications: Current Medications Apixaban (Eliquis) 2.5 mg PO BID [facility] Last Admin: 05/12/18 17:20 Dose: 2.5 mg Calcium Acetate (Phoslo) 1,334 mg PO TIDCC [facility] Last Admin: 05/12/18 17:20 Dose: 1,334 mg Docusate Sodium (Colace) 100 mg PO BID PRN PRN Reason: Constipation Epoetin Linden (Procrit) 10,000 unit IV TTS [facility] Last Admin: 05/11/18 17:05 Dose: 10,000 unit Glipizide (Glucotrol Xl) 5 mg PO DAILY [facility] Last Admin: 05/12/18 10:33 Dose: 5 mg Piperacillin Sod/Tazobactam (Sod 2.25 gm/ Sodium Chloride) 100 mls @ 200 mls/hr IVPB Q12H [facility]; Protocol Last Admin: 05/12/18 10:32 Dose: 200 mls/hr Vancomycin/Sodium Chloride (Vancomycin 1 Gm/Ns 200 Ml) 1 gm in 200 mls @ 133.333 mls/hr IVPB TTS [facility]; Protocol Stop: 05/14/18 10:01 Last Admin: 05/11/18 09:22 Dose: Not Given Ferric Sodium Gluconate Complex 125 mg/ Sodium Chloride 110 mls @ 110 mls/hr IVPB Q24H [facility] Stop: 05/20/18 14:01 Last Admin: 05/12/18 14:23 Dose: 110 mls/hr Insulin Aspart (Novolog) 0 unit SC ACHS [facility]; Protocol Last Admin: 05/12/18 17:20 Dose: 4 units Metoprolol Tartrate (Lopressor) 12.5 mg PO BID [facility] Last Admin: 05/12/18 17:20 Dose: 12.5 mg Mupirocin (Bactroban Ointment) 0 gm TOP DAILY [facility] Last Admin: 05/12/18 10:33 Dose: Not Given Oxycodone/Acetaminophen (Percocet 5/325 Mg Tab) 1 tab PO Q4H PRN PRN Reason: Pain, moderate (4-7) Stop: 05/15/18 07:41 Last Admin: 05/12/18 08:11 Dose: 1 tab Rosuvastatin Calcium (Crestor) 10 mg PO HS [facility] Last Admin: 05/11/18 21:46 Dose: 10 mg Sitagliptin Phosphate (Januvia) 25 mg PO DAILY [facility] Last Admin: 05/12/18 10:32 Dose: 25 mg Sodium Hypochlorite (Dakins Solution 0.25%) 0 ml TOP DAILY [facility] Last Admin: 05/12/18 10:33 Dose: Not Given Tamsulosin HCl (Flomax) 0.4 mg PO DAILY [facility] Last Admin: 05/12/18 10:31 Dose: 0.4 mg - Labs Labs: 05/10/18 08:19 05/10/18 08:19 PT 17.9 SECONDS (9.7-12.2) H 05/09/18 19:34 INR 1.6 05/09/18 19:34 APTT 42 SECONDS (21-34) H 05/09/18 19:34 - Constitutional Appears: Non-toxic, Chronically Ill - Head Exam Head Exam: NORMOCEPHALIC - Eye Exam Eye Exam: absent: Scleral icterus - ENT Exam ENT Exam: Mucous Membranes Dry - Neck Exam Neck Exam: absent: Lymphadenopathy - Respiratory Exam Respiratory Exam: Decreased Breath Sounds - Cardiovascular Exam Cardiovascular Exam: REGULAR RHYTHM - GI/Abdominal Exam GI & Abdominal Exam: Distended, Soft - Rectal Exam Rectal Exam: Deferred - Exam Exam: NORMAL INSPECTION - Extremities Exam Extremities Exam: Pedal Edema Additional comments: dressing left foot / ankle in place - Back Exam Back Exam: absent: CVA tenderness (L), CVA tenderness (R) - Neurological Exam Neurological Exam: Alert, Awake Assessment and Plan (1) Bilateral lower leg cellulitis Status: Acute (2) Cardiomyopathy Status: Acute (3) Cellulitis and abscess of left leg Status: Acute - Assessment and Plan (Free Text) Assessment: cont IV antibiotics and wound care
--- NOTE | 2018-05-12 23:46 | CP.PCM.PN ---
Subjective - Date & Time of Evaluation Date of Evaluation: 05/12/18 Time of Evaluation: 20:00 - Subjective Subjective: Patient has complaint Afebrile. TTE: normal LV. mild thickening of the NCC of the AV, with minimal AI. Dilated RV with moderate pulmonary hypertension. No vegetation seen. On IV antibiotics. Objective - Vital Signs/Intake and Output Vital Signs (last 24 hours): Temp Pulse Resp BP Pulse Ox 97.8 F 76 20 128/59 L 100 05/12/18 15:30 05/12/18 15:30 05/12/18 15:30 05/12/18 15:30 05/12/18 15:30 - Medications Medications: Current Medications Apixaban (Eliquis) 2.5 mg PO BID [facility] Last Admin: 05/12/18 17:20 Dose: 2.5 mg Calcium Acetate (Phoslo) 1,334 mg PO TIDCC [facility] Last Admin: 05/12/18 17:20 Dose: 1,334 mg Docusate Sodium (Colace) 100 mg PO BID PRN PRN Reason: Constipation Epoetin Linden (Procrit) 10,000 unit IV TTS [facility] Last Admin: 05/11/18 17:05 Dose: 10,000 unit Glipizide (Glucotrol Xl) 5 mg PO DAILY [facility] Last Admin: 05/12/18 10:33 Dose: 5 mg Piperacillin Sod/Tazobactam (Sod 2.25 gm/ Sodium Chloride) 100 mls @ 200 mls/hr IVPB Q12H [facility]; Protocol Last Admin: 05/12/18 21:59 Dose: 200 mls/hr Vancomycin/Sodium Chloride (Vancomycin 1 Gm/Ns 200 Ml) 1 gm in 200 mls @ 133.333 mls/hr IVPB TTS [facility]; Protocol Stop: 05/14/18 10:01 Last Admin: 05/11/18 09:22 Dose: Not Given Ferric Sodium Gluconate Complex 125 mg/ Sodium Chloride 110 mls @ 110 mls/hr IVPB Q24H [facility] Stop: 05/20/18 14:01 Last Admin: 05/12/18 14:23 Dose: 110 mls/hr Insulin Aspart (Novolog) 0 unit SC ACHS [facility]; Protocol Last Admin: 05/12/18 21:57 Dose: Not Given Metoprolol Tartrate (Lopressor) 12.5 mg PO BID [facility] Last Admin: 05/12/18 17:20 Dose: 12.5 mg Mupirocin (Bactroban Ointment) 0 gm TOP DAILY [facility] Last Admin: 05/12/18 10:33 Dose: Not Given Oxycodone/Acetaminophen (Percocet 5/325 Mg Tab) 1 tab PO Q4H PRN PRN Reason: Pain, moderate (4-7) Stop: 05/15/18 07:41 Last Admin: 05/12/18 08:11 Dose: 1 tab Rosuvastatin Calcium (Crestor) 10 mg PO HS [facility] Last Admin: 05/12/18 22:02 Dose: 10 mg Sitagliptin Phosphate (Januvia) 25 mg PO DAILY [facility] Last Admin: 05/12/18 10:32 Dose: 25 mg Sodium Hypochlorite (Dakins Solution 0.25%) 0 ml TOP DAILY [facility] Last Admin: 05/12/18 10:33 Dose: Not Given Tamsulosin HCl (Flomax) 0.4 mg PO DAILY [facility] Last Admin: 05/12/18 10:31 Dose: 0.4 mg - Labs Labs: 05/10/18 08:19 05/10/18 08:19 PT 17.9 SECONDS (9.7-12.2) H 05/09/18 19:34 INR 1.6 05/09/18 19:34 APTT 42 SECONDS (21-34) H 05/09/18 19:34 - Constitutional Appears: No Acute Distress, Chronically Ill - Eye Exam Eye Exam: Normal appearance Pupil Exam: NORMAL ACCOMODATION - ENT Exam ENT Exam: Normal Exam - Neck Exam Neck Exam: Normal Inspection - Respiratory Exam Respiratory Exam: Clear to Ausculation Bilateral - Cardiovascular Exam Cardiovascular Exam: REGULAR RHYTHM - GI/Abdominal Exam GI & Abdominal Exam: Soft, Normal Bowel Sounds - Rectal Exam Rectal Exam: Deferred - Extremities Exam Additional comments: Ulcer of the left foot clean - Back Exam Back Exam: NORMAL INSPECTION - Neurological Exam Neurological Exam: Alert, Awake, Oriented x3 - Psychiatric Exam Psychiatric exam: Anxious Assessment and Plan (1) Fall Status: Resolved (2) Contusion of head Status: Resolved (3) Contusion of hip, left Status: Resolved (4) Bilateral lower leg cellulitis Status: Acute (5) Atrial fibrillation Status: Chronic (6) ESRD on hemodialysis Status: Chronic (7) Uncontrolled diabetes mellitus Status: Chronic (8) Bacteremia Status: Acute
--- NOTE | 2018-05-13 02:06 | CP.PCM.PN ---
Subjective - Date & Time of Evaluation Date of Evaluation: 05/12/18 Time of Evaluation: 13:00 - Subjective Subjective: Podiatry Progress Note: Dr. Cavanaugh 73 year old male patient examined and evaluated at bedside for left lateral ankle ulceration and multiple superficial ulcerations to left foot and right foot heel DTI with attending Dr. Cavanaugh . Patient seen resting comfortably in bed, in NAD. Patient denies of pain to the lower extremity bilaterally. Reports he is feeling better. is at bedside during encounter. Denies acute overnight events. Denies N/V/F/SOB/CP/Chills.Multipodus boots on. Dressing c/d/i Objective - Vital Signs/Intake and Output Vital Signs (last 24 hours): Temp Pulse Resp BP Pulse Ox 98.8 F 78 20 136/68 99 05/12/18 23:59 05/12/18 23:59 05/12/18 23:59 05/12/18 23:59 05/12/18 23:59 - Medications Medications: Current Medications Apixaban (Eliquis) 2.5 mg PO BID [facility] Last Admin: 05/12/18 17:20 Dose: 2.5 mg Calcium Acetate (Phoslo) 1,334 mg PO TIDCC [facility] Last Admin: 05/12/18 17:20 Dose: 1,334 mg Docusate Sodium (Colace) 100 mg PO BID PRN PRN Reason: Constipation Epoetin Linden (Procrit) 10,000 unit IV TTS [facility] Last Admin: 05/11/18 17:05 Dose: 10,000 unit Glipizide (Glucotrol Xl) 5 mg PO DAILY [facility] Last Admin: 05/12/18 10:33 Dose: 5 mg Piperacillin Sod/Tazobactam (Sod 2.25 gm/ Sodium Chloride) 100 mls @ 200 mls/hr IVPB Q12H [facility]; Protocol Last Admin: 05/12/18 21:59 Dose: 200 mls/hr Vancomycin/Sodium Chloride (Vancomycin 1 Gm/Ns 200 Ml) 1 gm in 200 mls @ 133.333 mls/hr IVPB TTS [facility]; Protocol Stop: 05/14/18 10:01 Last Admin: 05/11/18 09:22 Dose: Not Given Ferric Sodium Gluconate Complex 125 mg/ Sodium Chloride 110 mls @ 110 mls/hr IVPB Q24H [facility] Stop: 05/20/18 14:01 Last Admin: 05/12/18 14:23 Dose: 110 mls/hr Insulin Aspart (Novolog) 0 unit SC [facility]; Protocol Last Admin: 05/12/18 21:57 Dose: Not Given Metoprolol Tartrate (Lopressor) 12.5 mg PO BID [facility] Last Admin: 05/12/18 17:20 Dose: 12.5 mg Mupirocin (Bactroban Ointment) 0 gm TOP DAILY [facility] Last Admin: 05/12/18 10:33 Dose: Not Given Oxycodone/Acetaminophen (Percocet 5/325 Mg Tab) 1 tab PO Q4H PRN PRN Reason: Pain, moderate (4-7) Stop: 05/15/18 07:41 Last Admin: 05/12/18 08:11 Dose: 1 tab Rosuvastatin Calcium (Crestor) 10 mg PO HS [facility] Last Admin: 05/12/18 22:02 Dose: 10 mg Sitagliptin Phosphate (Januvia) 25 mg PO DAILY [facility] Last Admin: 05/12/18 10:32 Dose: 25 mg Sodium Hypochlorite (Dakins Solution 0.25%) 0 ml TOP DAILY [facility] Last Admin: 05/12/18 10:33 Dose: Not Given Tamsulosin HCl (Flomax) 0.4 mg PO DAILY [facility] Last Admin: 05/12/18 10:31 Dose: 0.4 mg - Labs Labs: 05/10/18 08:19 05/10/18 08:19 PT 17.9 SECONDS (9.7-12.2) H 05/09/18 19:34 INR 1.6 05/09/18 19:34 APTT 42 SECONDS (21-34) H 05/09/18 19:34 - Constitutional Appears: Well, Non-toxic, No Acute Distress - Extremities Exam Extremities Exam: absent: Calf Tenderness Additional comments: Lower extremity focused exam: Vasc: DP/PT pulses palpable 2/4. Temperature gradient warm to warm. CFT < 3 sec to all digits. No pedal edema noted Derm: Open circular ulceration noted to left lateral malleolus approx 3cm diameter and 0.4cm in depth with 50% fibrotic and 50% granular wound base, with some necrotic tissue noted centrally to wound bed. Macerated wound borders. Less drainage noted to the lateral malleolus ulceration. No tunneling or undermining, no purulence, no fluctuance. Eschar noted to left lateral midfoot with overlying hyperkeratotic tissue, with no purulence drainage expressed today. Multiple lanced fluid-filled blisters noted to dorsum of left foot and left lower leg with no underlying open lesions. Stage 2 pressure ulceration to left heel with t hin friable erythematous skin with no break in skin noted Right heel with DTI noted, no open lesions Neuro: Protective sensation slightly diminished, gross sensation intact Ortho: No tenderness to palpation of left lower extremity ulcerations - Psychiatric Exam Psychiatric exam: Normal Affect, Normal Mood Assessment and Plan - Assessment and Plan (Free Text) Assessment: 73 y/o male with left lower extremity ulcerations to foot and ankle, infected- improving and right heel DTI-stable Plan: Patient seen and evaluated with attending Dr Cavanaugh Afebrile, WBC 13.5 on 05/10/18 Wound cx of left ankle; MRSA Blood culture (05/08): MRSA Blood culture (05/11): pending IV abx per Infecious Disease Dr. Bailey Ankle x-rays reviewed- no acute osseous findings are noted Cleansed ulcerations with copious saline, dressed ulcerations with bactroban Patient s/p aortofemoral angiogram. No intervention was undertaken. Podiatry will provide local wound care No surgical intervention at this time by podiatry Multipodus boots to be worn at all times in bed to left and right Please dispense multipodus boots to right foot, thank you Will continue to follow
[2018-05-13] MEDS: (Novolog) Insulin Aspart, Recombinant 100 u/ml 10 ml vial SC SCH ×4 (08:53→22:00)
[2018-05-13] MEDS: Vancomycin 1 gm/NS 200 ml 1 GM/200 ML BAG IVPB SCH ×2 (10:00→17:07)
[2018-05-13] MEDS: Piperacillin/Tazobact 2.25 GM in Sodium Chloride 100 ML IVPB SCH ×2 (10:16→21:58)
[2018-05-13] MEDS: Dakin's Topical 0.25%-Half Strength (480 ml) TOP SCH (10:16)
[2018-05-13] MEDS: GlipiZIDE 5 mg SR Tab PO SCH (10:17)
--- NOTE | 2018-05-13 10:27 | CP.PCM.PN ---
Subjective - Date & Time of Evaluation Date of Evaluation: 05/13/18 Time of Evaluation: 10:25 - Subjective Subjective: Notes reviewed Seen in hd unit on dialysis Offers no complaints NO overnight events COndition unchanged, quiet Appears depressed ID and cardiology evals noted Generalized fatigue and weakness NO pain 10 point ros negative other than stated above Objective - Vital Signs/Intake and Output Vital Signs (last 24 hours): Temp Pulse Resp BP Pulse Ox 97.5 F L 83 18 129/57 L 97 05/13/18 08:22 05/13/18 08:22 05/13/18 08:22 05/13/18 08:22 05/13/18 08:22 - Medications Medications: Current Medications Apixaban (Eliquis) 2.5 mg PO BID [facility] Last Admin: 05/13/18 10:16 Dose: Not Given Calcium Acetate (Phoslo) 1,334 mg PO TIDCC [facility] Last Admin: 05/13/18 08:52 Dose: 1,334 mg Docusate Sodium (Colace) 100 mg PO BID PRN PRN Reason: Constipation Epoetin Linden (Procrit) 10,000 unit IV TTS [facility] Last Admin: 05/11/18 17:05 Dose: 10,000 unit Glipizide (Glucotrol Xl) 5 mg PO DAILY [facility] Last Admin: 05/13/18 10:17 Dose: Not Given Piperacillin Sod/Tazobactam (Sod 2.25 gm/ Sodium Chloride) 100 mls @ 200 mls/hr IVPB Q12H [facility]; Protocol Last Admin: 05/13/18 10:16 Dose: Not Given Vancomycin/Sodium Chloride (Vancomycin 1 Gm/Ns 200 Ml) 1 gm in 200 mls @ 133.333 mls/hr IVPB TTS [facility]; Protocol Stop: 05/14/18 10:01 Last Admin: 05/11/18 09:22 Dose: Not Given Ferric Sodium Gluconate Complex 125 mg/ Sodium Chloride 110 mls @ 110 mls/hr IVPB Q24H [facility] Stop: 05/20/18 14:01 Last Admin: 05/12/18 14:23 Dose: 110 mls/hr Insulin Aspart (Novolog) 0 unit SC ACHS [facility]; Protocol Last Admin: 05/13/18 08:53 Dose: 3 units Metoprolol Tartrate (Lopressor) 12.5 mg PO BID [facility] Last Admin: 05/13/18 10:16 Dose: Not Given Mupirocin (Bactroban Ointment) 0 gm TOP DAILY [facility] Last Admin: 05/13/18 10:16 Dose: Not Given Oxycodone/Acetaminophen (Percocet 5/325 Mg Tab) 1 tab PO Q4H PRN PRN Reason: Pain, moderate (4-7) Stop: 05/15/18 07:41 Last Admin: 05/12/18 08:11 Dose: 1 tab Rosuvastatin Calcium (Crestor) 10 mg PO HS [facility] Last Admin: 05/12/18 22:02 Dose: 10 mg Sitagliptin Phosphate (Januvia) 25 mg PO DAILY [facility] Last Admin: 05/13/18 10:16 Dose: Not Given Sodium Hypochlorite (Dakins Solution 0.25%) 0 ml TOP DAILY [facility] Last Admin: 05/13/18 10:16 Dose: Not Given Tamsulosin HCl (Flomax) 0.4 mg PO DAILY [facility] Last Admin: 05/13/18 10:17 Dose: Not Given - Labs Labs: 05/10/18 08:19 05/10/18 08:19 PT 17.9 SECONDS (9.7-12.2) H 05/09/18 19:34 INR 1.6 05/09/18 19:34 APTT 42 SECONDS (21-34) H 05/09/18 19:34 - Constitutional Appears: No Acute Distress - Head Exam Head Exam: ATRAUMATIC, NORMAL INSPECTION - Eye Exam Eye Exam: EOMI, Normal appearance - ENT Exam ENT Exam: Mucous Membranes Moist, Normal Oropharynx - Neck Exam Neck Exam: absent: Lymphadenopathy, Thyromegaly - Respiratory Exam Respiratory Exam: Clear to Ausculation Bilateral. absent: Rales, Rhonchi - Cardiovascular Exam Cardiovascular Exam: +S1, +S2. absent: Rubs - GI/Abdominal Exam GI & Abdominal Exam: Soft, Normal Bowel Sounds - Extremities Exam Extremities Exam: absent: Joint Swelling, Tenderness - Neurological Exam Neurological Exam: Alert, Awake - Psychiatric Exam Psychiatric exam: Depressed - Skin Skin Exam: Dry Assessment and Plan (1) Anemia Status: Acute (2) Bilateral cellulitis of lower leg Status: Deleted (3) PVD (peripheral vascular disease) Status: Acute (4) ESRD on hemodialysis Status: Chronic (5) Uncontrolled diabetes mellitus Status: Chronic (6) ESRD (end stage renal disease) on dialysis Status: Chronic - Assessment and Plan (Free Text) Assessment: Maintain dialysis schedule UF goal today 2300ml Continue abx and wound care as ordered Labs with dialysis Continue supportive care
[2018-05-13] MEDS: Epoetin Alfa 10,000 unit/ml Dialysis IV SCH (11:51)
[2018-05-13] MEDS ORDERED: Ferric Sodium Gluconat Complex 62.5 mg/5 ml Vial ONE (14:25)
[2018-05-13] MEDS: Ferric Sodium Gluconat Complex 125 MG in Sodium Chloride 0.9% 100 ML IVPB SCH (14:49)
--- NOTE | 2018-05-13 15:21 | CP.PCM.PN ---
Subjective - Date & Time of Evaluation Date of Evaluation: 05/13/18 Time of Evaluation: 15:18 - Subjective Subjective: Podiatry Progress Note: Dr. Cavanaugh 73 year old male patient examined and evaluated at bedside for left lateral ankle ulceration and multiple superficial ulcerations to left foot and right foot heel DTI.Patient seen resting comfortably in bed, in NAD. Patient denies of pain to the lower extremity bilaterally. Denies acute overnight events. Denies N/V/F/SOB/CP/Chills.Multipodus boots on. Dressing c/d/i Objective - Vital Signs/Intake and Output Vital Signs (last 24 hours): Temp Pulse Resp BP Pulse Ox 98 F 79 16 99/47 L 100 05/13/18 13:00 05/13/18 13:00 05/13/18 13:00 05/13/18 13:00 05/13/18 10:00 - Medications Medications: Current Medications Apixaban (Eliquis) 2.5 mg PO BID [facility] Last Admin: 05/13/18 10:16 Dose: Not Given Calcium Acetate (Phoslo) 1,334 mg PO TIDCC [facility] Last Admin: 05/13/18 12:00 Dose: Not Given Docusate Sodium (Colace) 100 mg PO BID PRN PRN Reason: Constipation Epoetin Linden (Procrit) 10,000 unit IV TTS [facility] Last Admin: 05/13/18 11:51 Dose: 10,000 unit Glipizide (Glucotrol Xl) 5 mg PO DAILY [facility] Last Admin: 05/13/18 10:17 Dose: Not Given Piperacillin Sod/Tazobactam (Sod 2.25 gm/ Sodium Chloride) 100 mls @ 200 mls/hr IVPB Q12H [facility]; Protocol Last Admin: 05/13/18 10:16 Dose: Not Given Vancomycin/Sodium Chloride (Vancomycin 1 Gm/Ns 200 Ml) 1 gm in 200 mls @ 1 33.333 mls/hr IVPB TTS [facility]; Protocol Stop: 05/14/18 10:01 Last Admin: 05/13/18 10:00 Dose: Not Given Ferric Sodium Gluconate Complex 125 mg/ Sodium Chloride 110 mls @ 110 mls/hr IVPB Q24H [facility] Stop: 05/20/18 14:01 Last Admin: 05/12/18 14:23 Dose: 110 mls/hr Vancomycin/Sodium Chloride (Vancomycin 1 Gm/Ns 200 Ml) 1 gm in 200 mls @ 133.333 mls/hr IVPB TTS [facility]; Protocol Stop: 05/18/18 16:01 Insulin Aspart (Novolog) 0 unit SC ACHS [facility]; Protocol Last Admin: 05/13/18 11:30 Dose: Not Given Metoprolol Tartrate (Lopressor) 12.5 mg PO BID [facility] Last Admin: 05/13/18 10:16 Dose: Not Given Mupirocin (Bactroban Ointment) 0 gm TOP DAILY [facility] Last Admin: 05/13/18 10:16 Dose: Not Given Oxycodone/Acetaminophen (Percocet 5/325 Mg Tab) 1 tab PO Q4H PRN PRN Reason: Pain, moderate (4-7) Stop: 05/15/18 07:41 Last Admin: 05/12/18 08:11 Dose: 1 tab Rosuvastatin Calcium (Crestor) 10 mg PO HS [facility] Last Admin: 05/12/18 22:02 Dose: 10 mg Sitagliptin Phosphate (Januvia) 25 mg PO DAILY [facility] Last Admin: 05/13/18 10:16 Dose: Not Given Sodium Hypochlorite (Dakins Solution 0.25%) 0 ml TOP DAILY [facility] Last Admin: 05/13/18 10:16 Dose: Not Given Tamsulosin HCl (Flomax) 0.4 mg PO DAILY [facility] Last Admin: 05/13/18 10:17 Dose: Not Given - Labs Labs: 05/10/18 08:19 05/10/18 08:19 PT 17.9 SECONDS (9.7-12.2) H 05/09/18 19:34 INR 1.6 05/09/18 19:34 APTT 42 SECONDS (21-34) H 05/09/18 19:34 - Constitutional Appears: Well, Non-toxic, No Acute Distress - Head Exam Head Exam: ATRAUMATIC, NORMOCEPHALIC - Eye Exam Eye Exam: Normal appearance - ENT Exam ENT Exam: Mucous Membranes Moist - Extremities Exam Additional comments: Lower extremity focused exam: Vasc: DP/PT pulses palpable 2/4. Temperature gradient warm to warm. CFT < 3 sec to all digits. No pedal edema noted Derm: Circular ulceration noted to left lateral malleolus approx 3cm diameter and 0.4cm in depth with 50% fibrotic and 50% granular wound base, with some necrotic tissue noted centrally to wound bed. Macerated wound borders. Active drainage noted to the lateral malleolus ulceration. No tunneling or undermining, no purulence, no fluctuance. Eschar noted to left lateral midfoot with overlying hyperkeratotic tissue, with no purulence drainage expressed today. Multiple scabs noted to dorsum of left foot and left lower leg with no underlying open lesions. Stage 2 pressure ulceration to left heel with thin friable erythematous skin with no break in skin noted Right heel with DTI noted, no open lesions Neuro: Protective sensation slightly diminished, gross sensation intact Ortho: No tenderness to palpation of left lower extremity ulcerations - Neurological Exam Neurological Exam: Alert, Awake Assessment and Plan - Assessment and Plan (Free Text) Assessment: 73 y/o male with left lower extremity ulcerations to foot and ankle, infected- improving and right heel DTI-stable Plan: Patient seen and evaluated with attending Dr Cavanaugh Afebrile, WBC 13.5 on 05/10/18 Wound cx of left ankle; MRSA Blood culture (05/08): MRSA Blood culture (05/11): pending IV abx per Infecious Disease Dr. Bailey Ankle x-rays reviewed- no acute osseous findings are noted Cleansed ulcerations with copious saline, dressed ulcerations with bactroban Patient s/p aortofemoral angiogram. No intervention was undertaken. Podiatry will provide local wound care No surgical intervention at this time by podiatry Multipodus boots to be worn at all times in bed to left and right Will continue to follow
--- NOTE | 2018-05-13 23:59 | CP.PCM.PN ---
Subjective - Date & Time of Evaluation Date of Evaluation: 05/13/18 Time of Evaluation: 19:00 - Subjective Subjective: Patient has no SOB, chest pain. On IV antibiotics for a left foot ulcer, MRSA bacteremia. Objective - Vital Signs/Intake and Output Vital Signs (last 24 hours): Temp Pulse Resp BP Pulse Ox 98.7 F 81 20 131/62 99 05/13/18 22:02 05/13/18 22:02 05/13/18 16:16 05/13/18 22:02 05/13/18 16:16 Intake and Output: 05/13/18 05/14/18 18:59 06:59 Intake Total 780 170 Balance 780 170 - Medications Medications: Current Medications Apixaban (Eliquis) 2.5 mg PO BID [facility] Last Admin: 05/13/18 17:35 Dose: 2.5 mg Calcium Acetate (Phoslo) 1,334 mg PO TIDCC [facility] Last Admin: 05/13/18 17:07 Dose: 1,334 mg Docusate Sodium (Colace) 100 mg PO BID PRN PRN Reason: Constipation Last Admin: 05/13/18 17:35 Dose: 100 mg Epoetin Linden (Procrit) 10,000 unit IV TTS [facility] Last Admin: 05/13/18 11:51 Dose: 10,000 unit Glipizide (Glucotrol Xl) 5 mg PO DAILY [facility] Last Admin: 05/13/18 10:17 Dose: Not Given Piperacillin Sod/Tazobactam (Sod 2.25 gm/ Sodium Chloride) 100 mls @ 200 mls/hr IVPB Q12H [facility]; Protocol Last Admin: 05/13/18 21:58 Dose: 200 mls/hr Ferric Sodium Gluconate Complex 125 mg/ Sodium Chloride 110 mls @ 110 mls/hr IVPB Q24H [facility] Stop: 05/20/18 14:01 Last Admin: 05/13/18 14:49 Dose: 110 mls/hr Vancomycin/Sodium Chloride (Vancomycin 1 Gm/Ns 200 Ml) 1 gm in 200 mls @ 133.333 mls/hr IVPB TTS [facility]; Protocol Stop: 05/18/18 16:01 Last Admin: 05/13/18 17:07 Dose: 133.333 mls/hr Insulin Aspart (Novolog) 0 unit SC ACHS [facility]; Protocol Last Admin: 05/13/18 22:00 Dose: Not Given Metoprolol Tartrate (Lopressor) 12.5 mg PO BID [facility] Last Admin: 05/13/18 17:35 Dose: 12.5 mg Mupirocin (Bactroban Ointment) 0 gm TOP DAILY [facility] Last Admin: 05/13/18 10:16 Dose: Not Given Oxycodone/Acetaminophen (Percocet 5/325 Mg Tab) 1 tab PO Q4H PRN PRN Reason: Pain, moderate (4-7) Stop: 05/15/18 07:41 Last Admin: 05/12/18 08:11 Dose: 1 tab Rosuvastatin Calcium (Crestor) 10 mg PO HS [facility] Last Admin: 05/13/18 21:59 Dose: 10 mg Sitagliptin Phosphate (Januvia) 25 mg PO DAILY [facility] Last Admin: 05/13/18 10:16 Dose: Not Given Sodium Hypochlorite (Dakins Solution 0.25%) 0 ml TOP DAILY [facility] Last Admin: 05/13/18 10:16 Dose: Not Given Tamsulosin HCl (Flomax) 0.4 mg PO DAILY [facility] Last Admin: 05/13/18 10:17 Dose: Not Given - Labs Labs: 05/10/18 08:19 05/10/18 08:19 PT 17.9 SECONDS (9.7-12.2) H 05/09/18 19:34 INR 1.6 05/09/18 19:34 APTT 42 SECONDS (21-34) H 05/09/18 19:34 - Constitutional Appears: No Acute Distress, Chronically Ill - Head Exam Head Exam: NORMAL INSPECTION - Eye Exam Eye Exam: Normal appearance - ENT Exam ENT Exam: Normal Exam - Neck Exam Neck Exam: Normal Inspection - Respiratory Exam Respiratory Exam: Clear to Ausculation Bilateral, NORMAL BREATHING PATTERN - Cardiovascular Exam Cardiovascular Exam: REGULAR RHYTHM - GI/Abdominal Exam GI & Abdominal Exam: Soft, Normal Bowel Sounds - Rectal Exam Rectal Exam: Deferred - Exam Exam: NORMAL INSPECTION - Extremities Exam Additional comments: Ulcer of the lateral aspect of the left foot clean. - Back Exam Back Exam: NORMAL INSPECTION - Neurological Exam Neurological Exam: Alert, Awake, Oriented x3 - Psychiatric Exam Psychiatric exam: Anxious - Skin Skin Exam: Dry, Intact Assessment and Plan (1) Fall Status: Resolved (2) Contusion of head Status: Resolved (3) Contusion of hip, left Status: Resolved (4) Bilateral lower leg cellulitis Assessment & Plan: On IV antibiotics. Status: Acute (5) Atrial fibrillation Status: Chronic (6) ESRD on hemodialysis Status: Chronic (7) Uncontrolled diabetes mellitus Status: Chronic (8) Bacteremia Assessment & Plan: On IV antibiotics. Status: Acute
[2018-05-14] MEDS: (Novolog) Insulin Aspart, Recombinant 100 u/ml 10 ml vial SC SCH ×4 (08:43→22:18)
[2018-05-14] MEDS: Piperacillin/Tazobact 2.25 GM in Sodium Chloride 100 ML IVPB SCH ×2 (09:56→22:21)
[2018-05-14] MEDS: GlipiZIDE 5 mg SR Tab PO SCH (09:56)
[2018-05-14] MEDS: Dakin's Topical 0.25%-Half Strength (480 ml) TOP SCH (09:57)
--- NOTE | 2018-05-14 10:54 | CP.PCM.PN ---
Subjective - Date & Time of Evaluation Date of Evaluation: 05/14/18 Time of Evaluation: 10:51 - Subjective Subjective: Podiatry Progress Note: Dr. Cavanaugh 73 year old male patient examined and evaluated at bedside for left lateral ankle ulceration and multiple superficial ulcerations to left foot and right foot heel DTI.Patient seen resting comfortably in bed, in NAD. Patient denies of pain to the lower extremity bilaterally. Denies acute overnight events. Denies N/V/F/SOB/CP/Chills.Multipodus boots on. Dressing c/d/i Objective - Vital Signs/Intake and Output Vital Signs (last 24 hours): Temp Pulse Resp BP Pulse Ox 99.1 F 69 20 127/51 L 95 05/14/18 00:00 05/14/18 10:01 05/14/18 10:01 05/14/18 10:01 05/14/18 10:01 Intake and Output: 05/14/18 05/14/18 06:59 18:59 Intake Total 170 Balance 170 - Medications Medications: Current Medications Apixaban (Eliquis) 2.5 mg PO BID [facility] Last Admin: 05/14/18 09:56 Dose: 2.5 mg Calcium Acetate (Phoslo) 1,334 mg PO TIDCC [facility] Last Admin: 05/14/18 08:43 Dose: 1,334 mg Docusate Sodium (Colace) 100 mg PO BID PRN PRN Reason: Constipation Last Admin: 05/14/18 09:56 Dose: 100 mg Epoetin Linden (Procrit) 10,000 unit IV TTS [facility] Last Admin: 05/13/18 11:51 Dose: 10,000 unit Glipizide (Glucotrol Xl) 5 mg PO DAILY [facility] Last Admin: 05/14/18 09:56 Dose: 5 mg Piperacillin Sod/Tazobactam (Sod 2.25 gm/ Sodium Chloride) 100 mls @ 200 mls/hr IVPB Q12H [facility]; Protocol Last Admin: 05/14/18 09:56 Dose: 200 mls/hr Ferric Sodium Gluconate Complex 125 mg/ Sodium Chloride 110 mls @ 110 mls/hr IVPB Q24H [facility] Stop: 05/20/18 14:01 Last Admin: 05/13/18 14:49 Dose: 110 mls/hr Vancomycin/Sodium Chloride (Vancomycin 1 Gm/Ns 200 Ml) 1 gm in 200 mls @ 133.333 mls/hr IVPB TTS [facility]; Protocol Stop: 05/18/18 16:01 Last Admin: 05/13/18 17:07 Dose: 133.333 mls/hr Insulin Aspart (Novolog) 0 unit SC ACHS [facility]; Protocol Last Admin: 05/14/18 08:43 Dose: 2 units Metoprolol Tartrate (Lopressor) 12.5 mg PO BID [facility] Last Admin: 05/14/18 09:56 Dose: 12.5 mg Mupirocin (Bactroban Ointment) 0 gm TOP DAILY [facility] Last Admin: 05/14/18 09:57 Dose: Not Given Oxycodone/Acetaminophen (Percocet 5/325 Mg Tab) 1 tab PO Q4H PRN PRN Reason: Pain, moderate (4-7) Stop: 05/15/18 07:41 Last Admin: 05/12/18 08:11 Dose: 1 tab Rosuvastatin Calcium (Crestor) 10 mg PO HS [facility] Last Admin: 05/13/18 21:59 Dose: 10 mg Sitagliptin Phosphate (Januvia) 25 mg PO DAILY [facility] Last Admin: 05/14/18 09:56 Dose: 25 mg Sodium Hypochlorite (Dakins Solution 0.25%) 0 ml TOP DAILY [facility] Last Admin: 05/14/18 09:57 Dose: Not Given Tamsulosin HCl (Flomax) 0.4 mg PO DAILY [facility] Last Admin: 05/14/18 09:56 Dose: 0.4 mg - Labs Labs: 05/10/18 08:19 05/10/18 08:19 PT 17.9 SECONDS (9.7-12.2) H 05/09/18 19:34 INR 1.6 05/09/18 19:34 APTT 42 SECONDS (21-34) H 05/09/18 19:34 - Constitutional Appears: Well, Non-toxic, No Acute Distress - Head Exam Head Exam: ATRAUMATIC, NORMOCEPHALIC - Eye Exam Eye Exam: Normal appearance Pupil Exam: NORMAL ACCOMODATION - Extremities Exam Extremities Exam: Normal Inspection Additional comments: Lower extremity focused exam: Vasc: DP/PT pulses palpable 2/4. Temperature gradient warm to warm. CFT < 3 sec to all digits. No pedal edema noted Derm: Circular ulceration noted to left lateral malleolus approx 3cm diameter and 0.4cm in depth with 50% fibrotic and 50% granular wound base, with some necrotic tissue noted centrally to wound bed. Macerated wound borders. Active purulent drainage noted to the lateral malleolus ulceration. No tunneling or undermining, no purulence, no fluctuance. Eschar noted to left lateral midfoot with overlying hyperkeratotic tissue, with no purulence drainage expressed today. Multiple scabs noted to dorsum of left foot and left lower leg with no underlying open lesions. Stage 2 pressure ulceration to left heel with thin friable erythematous skin with no break in skin noted Right heel with DTI noted, no open lesions Neuro: Protective sensation slightly diminished, gross sensation intact Ortho: No tenderness to palpation of left lower extremity ulcerations - Neurological Exam Neurological Exam: Alert, Awake, Oriented x3 - Psychiatric Exam Psychiatric exam: Normal Affect Assessment and Plan - Assessment and Plan (Free Text) Assessment: 73 y/o male with left lower extremity ulcerations to foot and ankle, infected- improving and right heel DTI-stable Plan: Patient seen and evaluated with attending Dr Cavanaugh Afebrile, WBC 13.5 on 05/10/18 Wound cx of left ankle; MRSA Blood culture (05/08): MRSA Blood culture (05/11): no growth after 48 hours IV abx per In[facility] Dr. Bailey Ankle x-rays reviewed- no acute osseous findings are noted Cleansed ulcerations with copious saline, dressed ulcerations with bactroban Patient s/p aortofemoral angiogram. No intervention was undertaken. Podiatry will provide local wound care No surgical intervention at this time by podiatry Multipodus boots to be worn at all times in bed to left and right Will continue to follow
[2018-05-14] MEDS: Ferric Sodium Gluconat Complex 125 MG in Sodium Chloride 0.9% 100 ML IVPB SCH (14:13)
--- NOTE | 2018-05-14 15:26 | CP.PCM.PN ---
Subjective - Date & Time of Evaluation Date of Evaluation: 05/14/18 Time of Evaluation: 08:00 - Subjective Subjective: afeb asleep on rounds repeat blood c/s neg so far Objective - Vital Signs/Intake and Output Vital Signs (last 24 hours): Temp Pulse Resp BP Pulse Ox 99.3 F 69 20 127/51 L 95 05/14/18 08:00 05/14/18 10:01 05/14/18 10:01 05/14/18 10:01 05/14/18 10:01 Intake and Output: 05/14/18 05/14/18 06:59 18:59 Intake Total 170 580 Balance 170 580 - Medications Medications: Current Medications Apixaban (Eliquis) 2.5 mg PO BID [facility] Last Admin: 05/14/18 09:56 Dose: 2.5 mg Calcium Acetate (Phoslo) 1,334 mg PO TIDCC [facility] Last Admin: 05/14/18 12:32 Dose: 1,334 mg Docusate Sodium (Colace) 100 mg PO BID PRN PRN Reason: Constipation Last Admin: 05/14/18 09:56 Dose: 100 mg Epoetin Linden (Procrit) 10,000 unit IV TTS [facility] Last Admin: 05/13/18 11:51 Dose: 10,000 unit Glipizide (Glucotrol Xl) 5 mg PO DAILY [facility] Last Admin: 05/14/18 09:56 Dose: 5 mg Piperacillin Sod/Tazobactam (Sod 2.25 gm/ Sodium Chloride) 100 mls @ 200 mls/hr IVPB Q12H [facility]; Protocol Last Admin: 05/14/18 09:56 Dose: 200 mls/hr Ferric Sodium Gluconate Complex 125 mg/ Sodium Chloride 110 mls @ 110 mls/hr IVPB Q24H [facility] Stop: 05/20/18 14:01 Last Admin: 05/14/18 14:13 Dose: 110 mls/hr Vancomycin/Sodium Chloride (Vancomycin 1 Gm/Ns 200 Ml) 1 gm in 200 mls @ 133.333 mls/hr IVPB TTS [facility]; Protocol Stop: 05/18/18 16:01 Last Admin: 05/13/18 17:07 Dose: 133.333 mls/hr Insulin Aspart (Novolog) 0 unit SC ACHS [facility]; Protocol Last Admin: 05/14/18 12:32 Dose: 1 units Metoprolol Tartrate (Lopressor) 12.5 mg PO BID [facility] Last Admin: 05/14/18 09:56 Dose: 12.5 mg Mupirocin (Bactroban Ointment) 0 gm TOP DAILY [facility] Last Admin: 05/14/18 09:57 Dose: Not Given Oxycodone/Acetaminophen (Percocet 5/325 Mg Tab) 1 tab PO Q4H PRN PRN Reason: Pain, moderate (4-7) Stop: 05/15/18 07:41 Last Admin: 05/12/18 08:11 Dose: 1 tab Rosuvastatin Calcium (Crestor) 10 mg PO [facility] Last Admin: 05/13/18 21:59 Dose: 10 mg Sitagliptin Phosphate (Januvia) 25 mg PO DAILY [facility] Last Admin: 05/14/18 09:56 Dose: 25 mg Sodium Hypochlorite (Dakins Solution 0.25%) 0 ml TOP DAILY [facility] Last Admin: 05/14/18 09:57 Dose: Not Given Tamsulosin HCl (Flomax) 0.4 mg PO DAILY [facility] Last Admin: 05/14/18 09:56 Dose: 0.4 mg - Labs Labs: 05/10/18 08:19 05/10/18 08:19 PT 17.9 SECONDS (9.7-12.2) H 05/09/18 19:34 INR 1.6 05/09/18 19:34 APTT 42 SECONDS (21-34) H 05/09/18 19:34 - Constitutional Appears: Non-toxic, Chronically Ill - Head Exam Head Exam: NORMOCEPHALIC - Eye Exam Eye Exam: absent: Scleral icterus - ENT Exam ENT Exam: Mucous Membranes Dry - Neck Exam Neck Exam: absent: Lymphadenopathy - Respiratory Exam Respiratory Exam: Decreased Breath Sounds - Cardiovascular Exam Cardiovascular Exam: REGULAR RHYTHM - GI/Abdominal Exam GI & Abdominal Exam: Distended, Soft - Rectal Exam Rectal Exam: Deferred - Exam Exam: NORMAL INSPECTION - Extremities Exam Extremities Exam: Pedal Edema, Tenderness. absent: Calf Tenderness - Back Exam Back Exam: absent: CVA tenderness (L), CVA tenderness (R) - Neurological Exam Neurological Exam: Alert, Awake Assessment and Plan (1) Bilateral lower leg cellulitis Status: Acute (2) Cardiomyopathy Status: Acute (3) Cellulitis and abscess of left leg Status: Acute - Assessment and Plan (Free Text) Assessment: cont iv rx check vanco levels
--- NOTE | 2018-05-15 00:06 | CP.PCM.PN ---
Subjective - Date & Time of Evaluation Date of Evaluation: 05/14/18 Time of Evaluation: 17:30 - Subjective Subjective: Patient has no complaint. Afebrile with good appetite. Objective - Vital Signs/Intake and Output Vital Signs (last 24 hours): Temp Pulse Resp BP Pulse Ox 98.6 F 83 18 141/67 100 05/14/18 22:17 05/14/18 22:17 05/14/18 22:17 05/14/18 22:17 05/14/18 15:00 Intake and Output: 05/14/18 05/15/18 18:59 06:59 Intake Total 800 160 Balance 800 160 - Medications Medications: Current Medications Apixaban (Eliquis) 2.5 mg PO BID [facility] Last Admin: 05/14/18 17:35 Dose: 2.5 mg Calcium Acetate (Phoslo) 1,334 mg PO TIDCC [facility] Last Admin: 05/14/18 16:53 Dose: 1,334 mg Docusate Sodium (Colace) 100 mg PO BID PRN PRN Reason: Constipation Last Admin: 05/14/18 09:56 Dose: 100 mg Epoetin Ilnden (Procrit) 10,000 unit IV TTS [facility] Last Admin: 05/13/18 11:51 Dose: 10,000 unit Glipizide (Glucotrol Xl) 5 mg PO DAILY [facility] Last Admin: 05/14/18 09:56 Dose: 5 mg Piperacillin Sod/Tazobactam (Sod 2.25 gm/ Sodium Chloride) 100 mls @ 200 mls/hr IVPB Q12H [facility]; Protocol Last Admin: 05/14/18 22:21 Dose: 200 mls/hr Ferric Sodium Gluconate Complex 125 mg/ Sodium Chloride 110 mls @ 110 mls/hr IVPB Q24H [facility] Stop: 05/20/18 14:01 Last Admin: 05/14/18 14:13 Dose: 110 mls/hr Vancomycin/Sodium Chloride (Vancomycin 1 Gm/Ns 200 Ml) 1 gm in 200 mls @ 133.333 mls/hr IVPB TTS [facility]; Protocol Stop: 05/18/18 16:01 Last Admin: 05/13/18 17:07 Dose: 133.333 mls/hr Insulin Aspart (Novolog) 0 unit SC ACHS [facility]; Protocol Last Admin: 05/14/18 22:18 Dose: Not Given Metoprolol Tartrate (Lopressor) 12.5 mg PO BID [facility] Last Admin: 05/14/18 17:35 Dose: 12.5 mg Mupirocin (Bactroban Ointment) 0 gm TOP DAILY [facility] Last Admin: 05/14/18 09:57 Dose: Not Given Oxycodone/Acetaminophen (Percocet 5/325 Mg Tab) 1 tab PO Q4H PRN PRN Reason: Pain, moderate (4-7) Stop: 05/15/18 07:41 Last Admin: 05/12/18 08:11 Dose: 1 tab Rosuvastatin Calcium (Crestor) 10 mg PO [facility] Last Admin: 05/14/18 22:20 Dose: 10 mg Sitagliptin Phosphate (Januvia) 25 mg PO DAILY [facility] Last Admin: 05/14/18 09:56 Dose: 25 mg Sodium Hypochlorite (Dakins Solution 0.25%) 0 ml TOP DAILY [facility] Last Admin: 05/14/18 09:57 Dose: Not Given Tamsulosin HCl (Flomax) 0.4 mg PO DAILY [facility] Last Admin: 05/14/18 09:56 Dose: 0.4 mg - Labs Labs: 05/10/18 08:19 05/10/18 08:19 PT 17.9 SECONDS (9.7-12.2) H 05/09/18 19:34 INR 1.6 05/09/18 19:34 APTT 42 SECONDS (21-34) H 05/09/18 19:34 - Constitutional Appears: No Acute Distress, Chronically Ill - Head Exam Head Exam: NORMOCEPHALIC - Eye Exam Eye Exam: Normal appearance - ENT Exam ENT Exam: Normal Exam - Neck Exam Neck Exam: Normal Inspection - Respiratory Exam Respiratory Exam: Clear to Ausculation Bilateral - Cardiovascular Exam Cardiovascular Exam: Irregular Rhythm, Murmur - GI/Abdominal Exam GI & Abdominal Exam: Soft, Normal Bowel Sounds - Rectal Exam Rectal Exam: Deferred - Exam Exam: NORMAL INSPECTION - Extremities Exam Additional comments: Ulcer of the left foot clean. - Back Exam Back Exam: NORMAL INSPECTION - Neurological Exam Neurological Exam: Alert, Awake, Oriented x3 - Psychiatric Exam Psychiatric exam: Anxious Assessment and Plan (1) Fall Status: Resolved (2) Contusion of head Status: Resolved (3) Contusion of hip, left Status: Resolved (4) Bilateral lower leg cellulitis Status: Acute (5) Atrial fibrillation Status: Chronic (6) ESRD on hemodialysis Status: Chronic (7) Uncontrolled diabetes mellitus Status: Chronic (8) Bacteremia Status: Acute
[2018-05-15] MEDS: (Novolog) Insulin Aspart, Recombinant 100 u/ml 10 ml vial SC SCH ×3 (07:30→17:20)
[2018-05-15] MEDS: Piperacillin/Tazobact 2.25 GM in Sodium Chloride 100 ML IVPB SCH ×2 (09:37→22:10)
[2018-05-15] MEDS: GlipiZIDE 5 mg SR Tab PO SCH (09:38)
[2018-05-15] MEDS: Dakin's Topical 0.25%-Half Strength (480 ml) TOP SCH (09:41)
--- NOTE | 2018-05-15 10:51 | CP.PCM.PN ---
Subjective - Date & Time of Evaluation Date of Evaluation: 05/15/18 Time of Evaluation: 10:48 - Subjective Subjective: awake, same weakness last dialysis 05/13- UF 2000ml has been afebrile left LE wounds bandaged- wound care noted appetite fair; no new complaint Objective - Vital Signs/Intake and Output Vital Signs (last 24 hours): Temp Pulse Resp BP Pulse Ox 99.1 F 85 20 122/60 95 05/15/18 08:00 05/15/18 08:00 05/15/18 08:00 05/15/18 08:00 05/15/18 08:00 Intake and Output: 05/15/18 05/15/18 06:59 18:59 Intake Total 160 Balance 160 - Medications Medications: Current Medications Apixaban (Eliquis) 2.5 mg PO BID [facility] Last Admin: 05/15/18 09:38 Dose: 2.5 mg Calcium Acetate (Phoslo) 1,334 mg PO TIDCC [facility] Last Admin: 05/15/18 09:38 Dose: 1,334 mg Docusate Sodium (Colace) 100 mg PO BID PRN PRN Reason: Constipation Last Admin: 05/14/18 09:56 Dose: 100 mg Epoetin Linden (Procrit) 10,000 unit IV TTS [facility] Last Admin: 05/13/18 11:51 Dose: 10,000 unit Glipizide (Glucotrol Xl) 5 mg PO DAILY [facility] Last Admin: 05/15/18 09:38 Dose: 5 mg Piperacillin Sod/Tazobactam (Sod 2.25 gm/ Sodium Chloride) 100 mls @ 200 mls/hr IVPB Q12H [facility]; Protocol Last Admin: 05/15/18 09:37 Dose: 200 mls/hr Ferric Sodium Gluconate Complex 125 mg/ Sodium Chloride 110 mls @ 110 mls/hr IV PB Q24H [facility] Stop: 05/20/18 14:01 Last Admin: 05/14/18 14:13 Dose: 110 mls/hr Vancomycin/Sodium Chloride (Vancomycin 1 Gm/Ns 200 Ml) 1 gm in 200 mls @ 133.333 mls/hr IVPB TTS [facility]; Protocol Stop: 05/18/18 16:01 Last Admin: 05/13/18 17:07 Dose: 133.333 mls/hr Insulin Aspart (Novolog) 0 unit SC ACHS [facility]; Protocol Last Admin: 05/15/18 07:30 Dose: Not Given Metoprolol Tartrate (Lopressor) 12.5 mg PO BID [facility] Last Admin: 05/15/18 09:38 Dose: 12.5 mg Mupirocin (Bactroban Ointment) 0 gm TOP DAILY [facility] Last Admin: 05/15/18 09:41 Dose: Not Given Rosuvastatin Calcium (Crestor) 10 mg PO HS [facility] Last Admin: 05/14/18 22:20 Dose: 10 mg Sitagliptin Phosphate (Januvia) 25 mg PO DAILY [facility] Last Admin: 05/15/18 09:38 Dose: 25 mg Sodium Hypochlorite (Dakins Solution 0.25%) 0 ml TOP DAILY [facility] Last Admin: 05/15/18 09:41 Dose: Not Given Tamsulosin HCl (Flomax) 0.4 mg PO DAILY [facility] Last Admin: 05/15/18 09:38 Dose: 0.4 mg - Labs Labs: 05/10/18 08:19 05/10/18 08:19 PT 17.9 SECONDS (9.7-12.2) H 05/09/18 19:34 INR 1.6 05/09/18 19:34 APTT 42 SECONDS (21-34) H 05/09/18 19:34 - Constitutional Appears: No Acute Distress, Chronically Ill - Head Exam Head Exam: ATRAUMATIC, NORMAL INSPECTION - Eye Exam Eye Exam: EOMI, Normal appearance - Neck Exam Neck Exam: Normal Inspection. absent: Tenderness - Respiratory Exam Respiratory Exam: Clear to Ausculation Bilateral, NORMAL BREATHING PATTERN - Cardiovascular Exam Cardiovascular Exam: Irregular Rhythm, +S1 - GI/Abdominal Exam GI & Abdominal Exam: Soft. absent: Tenderness - Extremities Exam Extremities Exam: Normal Inspection, Tenderness - Neurological Exam Neurological Exam: Awake, CN II-XII Intact - Skin Skin Exam: Dry, Warm Assessment and Plan (1) Cellulitis and abscess of left leg Status: Acute (2) Cardiomyopathy Status: Acute (3) PVD (peripheral vascular disease) Status: Acute (4) PVD (peripheral vascular disease) Status: Acute (5) ESRD (end stage renal disease) on dialysis Status: Chronic (6) Non-insulin dependent type 2 diabetes mellitus Status: Chronic - Assessment and Plan (Free Text) Plan: same dialysis TTS IV ABs wound care repeat labs
--- NOTE | 2018-05-15 12:28 | CP.PCM.PN ---
Subjective - Date & Time of Evaluation Date of Evaluation: 05/15/18 Time of Evaluation: 09:00 - Subjective Subjective: IV VANCO RENEWED SEEN ON ROUNDDS MORE AWAKE AT BEDSIDE NAD Objective - Vital Signs/Intake and Output Vital Signs (last 24 hours): Temp Pulse Resp BP Pulse Ox 99.1 F 85 20 122/60 95 05/15/18 08:00 05/15/18 08:00 05/15/18 08:00 05/15/18 08:00 05/15/18 08:00 Intake and Output: 05/15/18 05/15/18 06:59 18:59 Intake Total 160 Balance 160 - Medications Medications: Current Medications Apixaban (Eliquis) 2.5 mg PO BID [facility] Last Admin: 05/15/18 09:38 Dose: 2.5 mg Calcium Acetate (Phoslo) 1,334 mg PO TIDCC [facility] Last Admin: 05/15/18 09:38 Dose: 1,334 mg Docusate Sodium (Colace) 100 mg PO BID PRN PRN Reason: Constipation Last Admin: 05/14/18 09:56 Dose: 100 mg Epoetin Linden (Procrit) 10,000 unit IV TTS [facility] Last Admin: 05/13/18 11:51 Dose: 10,000 unit Glipizide (Glucotrol Xl) 5 mg PO DAILY [facility] Last Admin: 05/15/18 09:38 Dose: 5 mg Piperacillin Sod/Tazobactam (Sod 2.25 gm/ Sodium Chloride) 100 mls @ 200 mls/hr IVPB Q12H [facility]; Protocol Last Admin: 05/15/18 09:37 Dose: 200 mls/hr Ferric Sodium Gluconate Complex 125 mg/ Sodium Chloride 110 mls @ 110 mls/hr IVPB Q24H [facility] Stop: 05/20/18 14:01 Last Admin: 05/14/18 14:13 Dose: 110 mls/hr Vancomycin/Sodium Chloride (Vancomycin 1 Gm/Ns 200 Ml) 1 gm in 200 mls @ 133.333 mls/hr IVPB TTS [facility]; Protocol Stop: 05/18/18 16:01 Last Admin: 05/13/18 17:07 Dose: 133.333 mls/hr Insulin Aspart (Novolog) 0 unit SC ACHS [facility]; Protocol Last Admin: 05/15/18 07:30 Dose: Not Given Metoprolol Tartrate (Lopressor) 12.5 mg PO BID [facility] Last Admin: 05/15/18 09:38 Dose: 12.5 mg Mupirocin (Bactroban Ointment) 0 gm TOP DAILY [facility] Last Admin: 05/15/18 09:41 Dose: Not Given Rosuvastatin Calcium (Crestor) 10 mg PO HS [facility] Last Admin: 05/14/18 22:20 Dose: 10 mg Sitagliptin Phosphate (Januvia) 25 mg PO DAILY [facility] Last Admin: 05/15/18 09:38 Dose: 25 mg Sodium Hypochlorite (Dakins Solution 0.25%) 0 ml TOP DAILY [facility] Last Admin: 05/15/18 09:41 Dose: Not Given Tamsulosin HCl (Flomax) 0.4 mg PO DAILY [facility] Last Admin: 05/15/18 09:38 Dose: 0.4 mg - Labs Labs: 05/10/18 08:19 05/10/18 08:19 PT 17.9 SECONDS (9.7-12.2) H 05/09/18 19:34 INR 1.6 05/09/18 19:34 APTT 42 SECONDS (21-34) H 05/09/18 19:34 - Constitutional Appears: Non-toxic, Chronically Ill - Head Exam Head Exam: NORMOCEPHALIC - Eye Exam Eye Exam: absent: Scleral icterus - ENT Exam ENT Exam: Mucous Membranes Dry - Neck Exam Neck Exam: absent: Lymphadenopathy - Respiratory Exam Respiratory Exam: Decreased Breath Sounds - Cardiovascular Exam Cardiovascular Exam: REGULAR RHYTHM - GI/Abdominal Exam GI & Abdominal Exam: Distended, Soft - Rectal Exam Rectal Exam: Deferred - Exam Exam: NORMAL INSPECTION - Extremities Exam Extremities Exam: Pedal Edema Additional comments: Circular ulceration noted to left lateral malleolus approx 3cm diameter and 0.4cm in depth with 50% fibrotic and 50% granular wound base, with some necrotic tissue noted centrally to wound bed. Macerated wound borders. Active purulent drainage noted to the lateral malleolus ulceration. No tunneling or undermining, no purulence, no fluctuance. Eschar noted to left lateral midfoot with overlying hyperkeratotic tissue, with no purulence drainage expressed today. Multiple scabs noted to dorsum of left foot and left lower leg with no underlying open lesions. Stage 2 pressure ulceration to left heel with thin friable erythematous skin with no break in skin noted Right heel with DTI noted, no open lesions - Back Exam Back Exam: absent: CVA tenderness (L), CVA tenderness (R) - Neurological Exam Neurological Exam: Alert, Awake - Psychiatric Exam Psychiatric exam: Depressed - Skin Skin Exam: Dry Assessment and Plan (1) Bilateral lower leg cellulitis Status: Acute (2) Cardiomyopathy Status: Acute (3) Cellulitis and abscess of left leg Status: Acute - Assessment and Plan (Free Text) Assessment: MAY NEED FURTHER DEBRIDEMENT CONT IV ANTIBIOTICS MAY NEED 6-8 WEEKS RX AWAIT FOLLOW UP BLOOD CULTURES
[2018-05-15] MEDS ORDERED: Ferric Sodium Gluconat Complex 62.5 mg/5 ml Vial ONE (13:07)
[2018-05-15] MEDS: Ferric Sodium Gluconat Complex 125 MG in Sodium Chloride 0.9% 100 ML IVPB SCH (13:14)
--- NOTE | 2018-05-15 14:04 | CP.PCM.PN ---
Subjective - Date & Time of Evaluation Date of Evaluation: 05/15/18 Time of Evaluation: 14:02 - Subjective Subjective: Patient comfortable. Offers complaint of neck stiffness. Review of Systems - Review of Systems Systems not reviewed;Unavailable: Dementia Objective - Vital Signs/Intake and Output Vital Signs (last 24 hours): Temp Pulse Resp BP Pulse Ox 99.1 F 85 20 122/60 95 05/15/18 08:00 05/15/18 08:00 05/15/18 08:00 05/15/18 08:00 05/15/18 08:00 Intake and Output: 05/15/18 05/15/18 06:59 18:59 Intake Total 160 Balance 160 - Medications Medications: Current Medications Apixaban (Eliquis) 2.5 mg PO BID [facility] Last Admin: 05/15/18 09:38 Dose: 2.5 mg Calcium Acetate (Phoslo) 1,334 mg PO TIDCC [facility] Last Admin: 05/15/18 13:06 Dose: 1,334 mg Docusate Sodium (Colace) 100 mg PO BID PRN PRN Reason: Constipation Last Admin: 05/14/18 09:56 Dose: 100 mg Epoetin Linden (Procrit) 10,000 unit IV TTS [facility] Last Admin: 05/13/18 11:51 Dose: 10,000 unit Glipizide (Glucotrol Xl) 5 mg PO DAILY [facility] Last Admin: 05/15/18 09:38 Dose: 5 mg Piperacillin Sod/Tazobactam (Sod 2.25 gm/ Sodium Chloride) 100 mls @ 200 mls/hr IVPB Q12H [facility]; Protocol Last Admin: 05/15/18 09:37 Dose: 200 mls/hr Ferric Sodium Gluconate Complex 125 mg/ Sodium Chloride 110 mls @ 110 mls/hr IVPB Q24H [facility] Stop: 05/20/18 14:01 Last Admin: 05/15/18 13:14 Dose: 110 mls/hr Vancomycin/Sodium Chloride (Vancomycin 1 Gm/Ns 200 Ml) 1 gm in 200 mls @ 133.333 mls/hr IVPB TTS [facility]; Protocol Stop: 05/18/18 16:01 Last Admin: 05/13/18 17:07 Dose: 133.333 mls/hr Insulin Aspart (Novolog) 0 unit SC ACHS [facility]; Protocol Last Admin: 05/15/18 13:06 Dose: 1 units Metoprolol Tartrate (Lopressor) 12.5 mg PO BID [facility] Last Admin: 05/15/18 09:38 Dose: 12.5 mg Mupirocin (Bactroban Ointment) 0 gm TOP DAILY [facility] Last Admin: 05/15/18 09:41 Dose: Not Given Rosuvastatin Calcium (Crestor) 10 mg PO HS [facility] Last Admin: 05/14/18 22:20 Dose: 10 mg Sitagliptin Phosphate (Januvia) 25 mg PO DAILY [facility] Last Admin: 05/15/18 09:38 Dose: 25 mg Sodium Hypochlorite (Dakins Solution 0.25%) 0 ml TOP DAILY [facility] Last Admin: 05/15/18 09:41 Dose: Not Given Tamsulosin HCl (Flomax) 0.4 mg PO DAILY [facility] Last Admin: 05/15/18 09:38 Dose: 0.4 mg - Labs Labs: 05/10/18 08:19 05/10/18 08:19 PT 17.9 SECONDS (9.7-12.2) H 05/09/18 19:34 INR 1.6 05/09/18 19:34 APTT 42 SECONDS (21-34) H 05/09/18 19:34 - Constitutional Appears: Well, No Acute Distress - Neck Exam Neck Exam: Full ROM, Normal Inspection Additional comments: no tension signs - Extremities Exam Additional comments: no pain with AROM/PROM of hips calves soft NT neg homans - Neurological Exam Neurological Exam: Alert, Awake Neuro motor strength exam: Left Lower Extremity: 5, Right Lower Extremity: 5 - Psychiatric Exam Psychiatric exam: Normal Affect, Normal Mood - Skin Skin Exam: Dry, Intact (to hips), Normal Color, Warm Assessment and Plan (1) Osteoarthritis of left hip Assessment & Plan: no clinical suspicion of septic arthritis at this time PT/OT when appropriate At this time, patient complaining of pain in heels and from sacral wound, no hip pain patient is not a surgical candidate at this time for hip replacement surgery no fracture on CT VTE proph MRI left hip reviewed, does not change orthopedic mgmt at this time no orthopedic intervention planned at this time d/w Dr. Weiner, agrees with above, patient can follow up as outpatient [phone] Status: Acute
--- NOTE | 2018-05-16 00:34 | CP.PCM.PN ---
Subjective - Date & Time of Evaluation Date of Evaluation: 05/15/18 Time of Evaluation: 19:45 - Subjective Subjective: Patient has no complaint. Afebrile with good appetite. On IV antibiotics for left foot ulcer, and MRSA bacteremia. Objective - Vital Signs/Intake and Output Vital Signs (last 24 hours): Temp Pulse Resp BP Pulse Ox 99.9 F H 87 18 137/75 97 05/15/18 16:00 05/15/18 16:00 05/15/18 16:00 05/15/18 16:00 05/15/18 16:00 Intake and Output: 05/15/18 05/16/18 18:59 06:59 Intake Total 300 Balance 300 - Medications Medications: Current Medications Apixaban (Eliquis) 2.5 mg PO BID [facility] Last Admin: 05/15/18 18:03 Dose: 2.5 mg Calcium Acetate (Phoslo) 1,334 mg PO TIDCC [facility] Last Admin: 05/15/18 17:50 Dose: 1,334 mg Docusate Sodium (Colace) 100 mg PO BID PRN PRN Reason: Constipation Last Admin: 05/14/18 09:56 Dose: 100 mg Epoetin Linden (Procrit) 10,000 unit IV TTS [facility] Last Admin: 05/13/18 11:51 Dose: 10,000 unit Glipizide (Glucotrol Xl) 5 mg PO DAILY [facility] Last Admin: 05/15/18 09:38 Dose: 5 mg Piperacillin Sod/Tazobactam (Sod 2.25 gm/ Sodium Chloride) 100 mls @ 200 mls/hr IVPB Q12H [facility]; Protocol Last Admin: 05/15/18 22:10 Dose: 200 mls/hr Ferric Sodium Gluconate Complex 125 mg/ Sodium Chloride 110 mls @ 110 mls/hr IVPB Q24H [facility] Stop: 05/20/18 14:01 Last Admin: 05/15/18 13:14 Dose: 110 mls/hr Vancomycin/Sodium Chloride (Vancomycin 1 Gm/Ns 200 Ml) 1 gm in 200 mls @ 133.333 mls/hr IVPB TTS [facility]; Protocol Stop: 05/18/18 16:01 Last Admin: 05/13/18 17:07 Dose: 133.333 mls/hr Insulin Aspart (Novolog) 0 unit SC ACHS [facility]; Protocol Last Admin: 05/15/18 17:20 Dose: Not Given Metoprolol Tartrate (Lopressor) 12.5 mg PO BID [facility] Last Admin: 05/15/18 18:03 Dose: 12.5 mg Mupirocin (Bactroban Ointment) 0 gm TOP DAILY [facility] Last Admin: 05/15/18 09:41 Dose: Not Given Rosuvastatin Calcium (Crestor) 10 mg PO HS [facility] Last Admin: 05/15/18 22:09 Dose: 10 mg Sitagliptin Phosphate (Januvia) 25 mg PO DAILY [facility] Last Admin: 05/15/18 09:38 Dose: 25 mg Sodium Hypochlorite (Dakins Solution 0.25%) 0 ml TOP DAILY [facility] Last Admin: 05/15/18 09:41 Dose: Not Given Tamsulosin HCl (Flomax) 0.4 mg PO DAILY [facility] Last Admin: 05/15/18 09:38 Dose: 0.4 mg - Labs Labs: 05/10/18 08:19 05/10/18 08:19 PT 17.9 SECONDS (9.7-12.2) H 05/09/18 19:34 INR 1.6 05/09/18 19:34 APTT 42 SECONDS (21-34) H 05/09/18 19:34 - Constitutional Appears: No Acute Distress, Chronically Ill - Head Exam Head Exam: NORMOCEPHALIC - Eye Exam Eye Exam: Normal appearance - ENT Exam ENT Exam: Normal Exam - Neck Exam Neck Exam: Normal Inspection - Respiratory Exam Respiratory Exam: Clear to Ausculation Bilateral - Cardiovascular Exam Cardiovascular Exam: Irregular Rhythm, Murmur - GI/Abdominal Exam GI & Abdominal Exam: Soft, Normal Bowel Sounds - Rectal Exam Rectal Exam: Deferred - Extremities Exam Additional comments: Ulcer of the left foot clean. - Back Exam Back Exam: NORMAL INSPECTION - Neurological Exam Neurological Exam: Alert, Awake, Oriented x3 - Psychiatric Exam Psychiatric exam: Anxious - Skin Skin Exam: Dry, Normal Color, Warm Assessment and Plan (1) Fall Status: Resolved (2) Contusion of head Status: Resolved (3) Contusion of hip, left Status: Resolved (4) Bilateral lower leg cellulitis Status: Acute (5) Atrial fibrillation Status: Chronic (6) ESRD on hemodialysis Status: Chronic (7) Uncontrolled diabetes mellitus Status: Chronic (8) Bacteremia Status: Acute
[2018-05-16] MEDS: (Novolog) Insulin Aspart, Recombinant 100 u/ml 10 ml vial SC SCH ×4 (07:56→21:44)
[2018-05-16 08:42] LABS: HEMOGLOBIN 7.4 g/dL (12.0-18.0); MEAN CORPUSCULAR HEMOGLOBIN 30.7 pg (27.0-31.0); MEAN CORPUSCULAR HGB CONC 31.3 g/dL (33.0-37.0); MEAN PLATELET VOLUME 9.4 fL (7.2-11.7); RBC 2.41 Mil/uL (4.40-5.90); RED CELL DISTRIBUTION WIDTH 17.5 % (11.5-14.5); WHITE BLOOD COUNT 11.7 K/uL (4.8-10.8)
[2018-05-16 08:46] LABS: MEAN CELL VOLUME 97.9 fL (80.0-94.0)
[2018-05-16] MEDS: GlipiZIDE 5 mg SR Tab PO SCH (09:05)
[2018-05-16] MEDS: Dakin's Topical 0.25%-Half Strength (480 ml) TOP SCH (09:06)
[2018-05-16 09:16] LABS: ALB/GLOB RATIO 0.6 (1.0-2.1); ALBUMIN 2.3 g/dL (3.5-5.0); CALCIUM 8.2 mg/dl (8.6-10.4)
--- NOTE | 2018-05-16 10:29 | CP.PCM.PN ---
Subjective - Date & Time of Evaluation Date of Evaluation: 05/16/18 Time of Evaluation: 10:27 - Subjective Subjective: seen and examined no events afebrile on iv antibiotics no n/v/d/f/c/dizzines/cp/sob/headache 10 point ros neg Objective - Vital Signs/Intake and Output Vital Signs (last 24 hours): Temp Pulse Resp BP Pulse Ox 97.8 F 76 20 130/65 95 05/16/18 08:00 05/16/18 08:00 05/16/18 08:00 05/16/18 08:00 05/16/18 08:00 - Medications Medications: Current Medications Apixaban (Eliquis) 2.5 mg PO BID [facility] Last Admin: 05/16/18 09:06 Dose: 2.5 mg Calcium Acetate (Phoslo) 1,334 mg PO TIDCC [facility] Last Admin: 05/16/18 09:06 Dose: 1,334 mg Docusate Sodium (Colace) 100 mg PO BID PRN PRN Reason: Constipation Last Admin: 05/14/18 09:56 Dose: 100 mg Epoetin Linden (Procrit) 10,000 unit IV TTS [facility] Last Admin: 05/13/18 11:51 Dose: 10,000 unit Glipizide (Glucotrol Xl) 5 mg PO DAILY [facility] Last Admin: 05/16/18 09:05 Dose: 5 mg Piperacillin Sod/Tazobactam (Sod 2.25 gm/ Sodium Chloride) 100 mls @ 200 mls/hr IVPB Q12H [facility]; Protocol Last Admin: 05/15/18 22:10 Dose: 200 mls/hr Ferric Sodium Gluconate Complex 125 mg/ Sodium Chloride 110 mls @ 110 mls/hr IVPB Q24H [facility] Stop: 05/20/18 14:01 Last Admin: 05/15/18 13:14 Dose: 110 mls/hr Vancomycin/Sodium Chloride (Vancomycin 1 Gm/Ns 200 Ml) 1 gm in 200 mls @ 133.333 mls/hr IVPB TTS [facility]; Protocol Stop: 05/18/18 16:01 Last Admin: 05/13/18 17:07 Dose: 133.333 mls/hr Insulin Aspart (Novolog) 0 unit SC ACHS [facility]; Protocol Last Admin: 05/16/18 07:56 Dose: Not Given Metoprolol Tartrate (Lopressor) 12.5 mg PO BID [facility] Last Admin: 05/16/18 09:06 Dose: Not Given Mupirocin (Bactroban Ointment) 0 gm TOP DAILY [facility] Last Admin: 05/16/18 09:06 Dose: Not Given Rosuvastatin Calcium (Crestor) 10 mg PO HS [facility] Last Admin: 05/15/18 22:09 Dose: 10 mg Sitagliptin Phosphate (Januvia) 25 mg PO DAILY [facility] Last Admin: 05/16/18 09:06 Dose: 25 mg Sodium Hypochlorite (Dakins Solution 0.25%) 0 ml TOP DAILY [facility] Last Admin: 05/16/18 09:06 Dose: Not Given Tamsulosin HCl (Flomax) 0.4 mg PO DAILY [facility] Last Admin: 05/16/18 09:10 Dose: 0.4 mg - Labs Labs: 05/16/18 08:26 05/16/18 08:26 PT 17.9 SECONDS (9.7-12.2) H 05/09/18 19:34 INR 1.6 05/09/18 19:34 APTT 42 SECONDS (21-34) H 05/09/18 19:34 - Constitutional Appears: No Acute Distress, Older Than Stated Age, Cachectic, Chronically Ill - Head Exam Head Exam: NORMAL INSPECTION, NORMOCEPHALIC - Eye Exam Eye Exam: Normal appearance, PERRL - ENT Exam ENT Exam: Mucous Membranes Moist, Normal Exam - Neck Exam Neck Exam: Full ROM, Normal Inspection - Respiratory Exam Respiratory Exam: Clear to Ausculation Bilateral, NORMAL BREATHING PATTERN - Cardiovascular Exam Cardiovascular Exam: Irregular Rhythm - GI/Abdominal Exam GI & Abdominal Exam: Distended, Soft - Extremities Exam Extremities Exam: Normal Inspection Additional comments: LLE foot dressing. b/l foot in boots chronic skin changes no edema - Neurological Exam Neurological Exam: Alert, Awake, Oriented x3 - Psychiatric Exam Psychiatric exam: Normal Affect, Normal Mood - Skin Skin Exam: Dry, Intact Assessment and Plan (1) Bacteremia Status: Acute (2) Foot osteomyelitis Status: Acute (3) PVD (peripheral vascular disease) Status: Acute (4) ESRD on hemodialysis Status: Chronic - Assessment and Plan (Free Text) Assessment: maintain hd tts antibiotics and wound care may need blood transfusion on katy and iv iron. poor response
[2018-05-16] MEDS: Piperacillin/Tazobact 2.25 GM in Sodium Chloride 100 ML IVPB SCH (12:08)
[2018-05-16] MEDS: Ferric Sodium Gluconat Complex 125 MG in Sodium Chloride 0.9% 100 ML IVPB SCH ×2 (14:34→16:01)
[2018-05-16] MEDS: Vancomycin 1 gm/NS 200 ml 1 GM/200 ML BAG IVPB SCH ×3 (14:52→18:54)
--- NOTE | 2018-05-16 15:37 | CP.PCM.PN ---
Subjective - Date & Time of Evaluation Date of Evaluation: 05/16/18 Time of Evaluation: 15:36 - Subjective Subjective: PATIENT SEEN AND EXAMINED AT THE BEDSIDE Objective - Vital Signs/Intake and Output Vital Signs (last 24 hours): Temp Pulse Resp BP Pulse Ox 97.2 F L 85 20 111/61 100 05/16/18 15:00 05/16/18 15:00 05/16/18 15:00 05/16/18 15:15 05/16/18 15:00 - Medications Medications: Current Medications Apixaban (Eliquis) 2.5 mg PO BID [facility] Last Admin: 05/16/18 09:06 Dose: 2.5 mg Calcium Acetate (Phoslo) 1,334 mg PO TIDCC [facility] Last Admin: 05/16/18 12:56 Dose: 1,334 mg Docusate Sodium (Colace) 100 mg PO BID PRN PRN Reason: Constipation Last Admin: 05/14/18 09:56 Dose: 100 mg Epoetin Linden (Procrit) 10,000 unit IV TTS [facility] Last Admin: 05/13/18 11:51 Dose: 10,000 unit Glipizide (Glucotrol Xl) 5 mg PO DAILY [facility] Last Admin: 05/16/18 09:05 Dose: 5 mg Piperacillin Sod/Tazobactam (Sod 2.25 gm/ Sodium Chloride) 100 mls @ 200 mls/hr IVPB Q12H [facility]; Protocol Last Admin: 05/16/18 12:08 Dose: Not Given Ferric Sodium Gluconate Complex 125 mg/ Sodium Chloride 110 mls @ 110 mls/hr IVPB Q24H [facility] Stop: 05/20/18 14:01 Last Admin: 05/16/18 14:34 Dose: Not Given Vancomycin/Sodium Chloride (Vancomycin 1 Gm/Ns 200 Ml) 1 gm in 200 mls @ 133.333 mls/hr IVPB TTS@1600 [facility]; Protocol Insulin Aspart (Novolog) 0 unit SC ACHS [facility]; Protocol Last Admin: 05/16/18 12:57 Dose: 1 units Metoprolol Tartrate (Lopressor) 12.5 mg PO BID [facility] Last Admin: 05/16/18 09:06 Dose: Not Given Mupirocin (Bactroban Ointment) 0 gm TOP DAILY [facility] Last Admin: 05/16/18 09:06 Dose: Not Given Rosuvastatin Calcium (Crestor) 10 mg PO HS [facility] Last Admin: 05/15/18 22:09 Dose: 10 mg Sitagliptin Phosphate (Januvia) 25 mg PO DAILY [facility] Last Admin: 05/16/18 09:06 Dose: 25 mg Sodium Hypochlorite (Dakins Solution 0.25%) 0 ml TOP DAILY [facility] Last Admin: 05/16/18 09:06 Dose: Not Given Tamsulosin HCl (Flomax) 0.4 mg PO DAILY [facility] Last Admin: 05/16/18 09:10 Dose: 0.4 mg - Labs Labs: 05/16/18 08:26 05/16/18 08:26 PT 17.9 SECONDS (9.7-12.2) H 05/09/18 19:34 INR 1.6 05/09/18 19:34 APTT 42 SECONDS (21-34) H 05/09/18 19:34 Assessment and Plan - Assessment and Plan (Free Text) Assessment: PLACE UNDER THE SERVICE OF DR LOPEZ OR ANY ADMITTING MD AT [facility]----CALL FOR ADMITTING ORDER HEMODIALYSIS SCHEDULE CONTINUE HOME MEDICATION NEW PRESCRIPTION ZOSYN IVPB Q8H FOR 7 DAY VANCO 1 G TTHS IVPB FOR 42 DAYS ACTIVITY TOLERATED AND PHYSICAL THERAPY PER FACILITY PER PROTOCOL Podiatry will provide local wound care No surgical intervention at this time by podiatry Multipodus boots to be worn at all times in bed to left and right SACRAL WOUND CARE Recommending to apply aloevesta to entire sacral region 3x/day and prn, and must reposition frequently using a foam wedge to optimize offloading. CALL DR LOPEZ OR ADMITTING MD FOR FURTHER ORDER
[2018-05-16] MEDS ORDERED: Epoetin Alfa 10,000 unit/ml Dialysis IV SCH (16:00)
--- NOTE | 2018-05-16 16:22 | CP.PCM.PN ---
Subjective - Date & Time of Evaluation Date of Evaluation: 05/16/18 Time of Evaluation: 13:00 - Subjective Subjective: Podiatry Progress Note: Dr. Cavanaugh 73 year old male patient examined and evaluated at bedside for infected left lateral ankle ulceration and multiple superficial ulcerations to left foot and right foot heel DTI with attending Dr. Cavanaugh. Patient seen resting comfortably in bed, in NAD. Patient denies of pain to the lower extremity bilaterally. Denies acute overnight events. Denies N/V/F/SOB/CP/Chills. Multipodus boots on. Objective - Vital Signs/Intake and Output Vital Signs (last 24 hours): Temp Pulse Resp BP Pulse Ox 97.2 F L 85 20 116/59 L 100 05/16/18 15:00 05/16/18 15:00 05/16/18 15:00 05/16/18 16:00 05/16/18 15:00 Intake and Output: 05/16/18 05/16/18 06:59 18:59 Intake Total 200 Balance 200 - Medications Medications: Current Medications Apixaban (Eliquis) 2.5 mg PO BID [facility] Last Admin: 05/16/18 09:06 Dose: 2.5 mg Calcium Acetate (Phoslo) 1,334 mg PO TIDCC [facility] Last Admin: 05/16/18 12:56 Dose: 1,334 mg Docusate Sodium (Colace) 100 mg PO BID PRN PRN Reason: Constipation Last Admin: 05/14/18 09:56 Dose: 100 mg Epoetin Linden (Procrit) 10,000 unit IV TTS [facility] Glipizide (Glucotrol Xl) 5 mg PO DAILY [facility] Last Admin: 05/16/18 09:05 Dose: 5 mg Piperacillin Sod/Tazobactam (Sod 2.25 gm/ Sodium Chloride) 100 mls @ 200 mls/hr IVPB Q12H [facility]; Protocol Last Admin: 05/16/18 12:08 Dose: Not Given Ferric Sodium Gluconate Complex 125 mg/ Sodium Chloride 110 mls @ 110 mls/hr IVPB Q24H [facility] Stop: 05/20/18 14:01 Last Admin: 05/16/18 16:01 Dose: 110 mls/hr Vancomycin/Sodium Chloride (Vancomycin 1 Gm/Ns 200 Ml) 1 gm in 200 mls @ 133.333 mls/hr IVPB TTS@1600 [facility]; Protocol Last Admin: 05/16/18 16:14 Dose: Not Given Insulin Aspart (Novolog) 0 unit SC ACHS [facility]; Protocol Last Admin: 05/16/18 12:57 Dose: 1 units Metoprolol Tartrate (Lopressor) 12.5 mg PO BID [facility] Last Admin: 05/16/18 09:06 Dose: Not Given Mupirocin (Bactroban Ointment) 0 gm TOP DAILY [facility] Last Admin: 05/16/18 09:06 Dose: Not Given Rosuvastatin Calcium (Crestor) 10 mg PO HS [facility] Last Admin: 05/15/18 22:09 Dose: 10 mg Sitagliptin Phosphate (Januvia) 25 mg PO DAILY [facility] Last Admin: 05/16/18 09:06 Dose: 25 mg Sodium Hypochlorite (Dakins Solution 0.25%) 0 ml TOP DAILY [facility] Last Admin: 05/16/18 09:06 Dose: Not Given Tamsulosin HCl (Flomax) 0.4 mg PO DAILY [facility] Last Admin: 05/16/18 09:10 Dose: 0.4 mg - Labs Labs: 05/16/18 08:26 05/16/18 08:26 PT 17.9 SECONDS (9.7-12.2) H 05/09/18 19:34 INR 1.6 05/09/18 19:34 APTT 42 SECONDS (21-34) H 05/09/18 19:34 - Constitutional Appears: Well, Non-toxic, No Acute Distress - Extremities Exam Extremities Exam: absent: Calf Tenderness Additional comments: Lower extremity focused exam: Vasc: DP/PT pulses palpable 2/4. Temperature gradient warm to warm. CFT < 3 sec to all digits. No pedal edema noted Derm: Circular ulceration noted to left lateral malleolus approx 3cm diameter and 0.4cm in depth with 50% fibrotic and 50% granular wound base, with some necrotic tissue noted centrally to wound bed. Macerated wound borders. Active purulent drainage noted to the lateral malleolus ulceration. No tunneling or undermining, no purulence, no fluctuance. Eschar noted to left lateral midfoot with overlying hyperkeratotic tissue, with no purulence drainage expressed today. Multiple scabs noted to dorsum of left foot and left lower leg with no underlying open lesions. Stage 2 pressure ulceration to left heel with thin friable erythematous skin with no break in skin noted Right heel with DTI noted, no open lesions Neuro: Protective sensation slightly diminished, gross sensation intact Ortho: No tenderness to palpation of left lower extremity ulcerations - Neurological Exam Neurological Exam: Alert, Awake, Oriented x3 - Psychiatric Exam Psychiatric exam: Normal Affect, Normal Mood Assessment and Plan - Assessment and Plan (Free Text) Assessment: 73 y/o male with left lower extremity ulcerations to foot and ankle, infected- improving and right heel DTI-stable Plan: Patient seen and evaluated with attending Dr Cavanaugh Afebrile, WBC 11.7 Wound cx of left ankle; MRSA Blood culture (05/08): MRSA Blood culture (05/11): no growth after 48 hours IV abx per Infecious Disease Dr. Bailey Ankle x-rays reviewed- no acute osseous findings are noted Cleansed ulcerations with copious saline, dressed ulcerations with bactroban Patient s/p aortofemoral angiogram. No intervention was undertaken. Podiatry will provide local wound care No surgical intervention at this time by podiatry Multipodus boots to be worn at all times in bed to left and right Will continue to follow
[2018-05-16 18:22] VITALS: TEMP 97.3
[2018-05-16 18:52] VITALS: BP 131/54; PULSE 90; RESP 18; O2SAT 100
--- NOTE | 2018-05-19 00:02 | CP.PCM.DIS ---
Provider - Provider Date of Admission: 05/03/18 19:06 Attending physician: Oz Watkins MD Primary care physician: Oz Watkins M.D. Consults: 05/03/18 17:46 Physician Consult Routine Comment: Consulting Provider: Lit Weiner III Consulting Physician: Lit Weiner III Reason for Consult: left femoral neck fracture 05/03/18 17:47 Physician Consult Routine Comment: Consulting Provider: Jarocho Lopes Consulting Physician: Jarocho Lopes Reason for Consult: hx of ESRD, on dialysis TTS. Cr 7.6, last dialysis on Tuesday. Additional Comments: missed dialysis on tuesday, dialysis center closed on Tuesday05/03/18 18:34 Physician Consult Routine Comment: Consulting Provider: Colby Bailey Consulting Physician: Colby Bailey Reason for Consult: cellulitis of left foot 05/04/18 06:03 Social Work Referral Routine Comment: Myles Tavarez Physician Instructions: Reason For Exam: Myles 7 05/04/18 10:00 Nursing Referral for Wound Care Routine Comment: Physician Instructions: Reason For Exam: L leg wound blister and R Back small wound 05/04/18 14:15 Podiatry Consult Routine Comment: L foot cellulitis Consulting Provider: Alfredo Cavanaugh Consulting Physician: Alfredo Cavanaugh Reason for Consult: Left foot cellulitis 05/05/18 11:22 Vascular Surgery Routine Comment: Consulting Provider: Kulwant Macias Jr. Physician Instructions: please evaluate LE circulation Reason For Exam: left lower extremity non healing ulcer Time Spent in preparation of Discharge (in minutes): 60 Diagnosis - Discharge Diagnosis (1) Fall Status: Resolved (2) Contusion of head Status: Resolved (3) Contusion of hip, left Status: Resolved (4) Bilateral lower leg cellulitis Status: Acute (5) Atrial fibrillation Status: Chronic (6) ESRD on hemodialysis Status: Chronic (7) Uncontrolled diabetes mellitus Status: Chronic (8) Bacteremia Status: Acute Hospital Course - Lab Results Lab Results: Micro Results 05/11/18 15:42 Blood-During Dialysis Blood Culture - Final NO GROWTH AFTER 5 DAYS 05/11/18 15:42 Blood-During Dialysis Gram Stain - Final TEST NOT PERFORMED 05/11/18 15:42 Blood-During Dialysis Blood Culture - Final NO GROWTH AFTER 5 DAYS 05/11/18 15:42 Blood-During Dialysis Gram Stain - Final TEST NOT PERFORMED 05/08/18 08:24 Blood-Venous Blood Culture - Final Methicillin Resistant S Aureus 05/08/18 08:24 Blood-Venous Gram Stain - Final 05/08/18 10:26 Blood-Venous Blood Culture - Final Methicillin Resistant S Aureus 05/08/18 10:26 Blood-Venous Gram Stain - Final 05/05/18 11:24 Ankle - Left Gram Stain - Final 05/05/18 11:24 Ankle - Left Wound Culture - Final Methicillin Resistant S Aureus 05/03/18 19:43 Blood Blood Culture - Final Methicillin Resistant S Aureus 05/03/18 19:43 Blood Gram Stain - Final 05/03/18 20:15 Blood S.aureus & Coag-Neg Staph PNA FISH - Final TEST NOT PERFORMED 05/03/18 20:15 Blood Blood Culture - Final Methicillin Resistant S Aureus 05/03/18 20:15 Blood Gram Stain - Final 05/03/18 08:18 Ankle - Left Gram Stain - Final 05/03/18 08:18 Ankle - Left Wound Culture - Final Methicillin Resistant S Aureus Most Recent Lab Values WBC 11.7 K/uL (4.8-10.8) H 05/16/18 08:26 RBC 2.41 Mil/uL (4.40-5.90) L 05/16/18 08:26 Hgb 7.4 g/dL (12.0-18.0) L 05/16/18 08:26 Hct 23.6 % (35.0-51.0) L 05/16/18 08:26 MCV 97.9 fL (80.0-94.0) H D 05/16/18 08:26 MCH 30.7 pg (27.0-31.0) 05/16/18 08:26 MCHC 31.3 g/dL (33.0-37.0) L 05/16/18 08:26 RDW 17.5 % (11.5-14.5) H 05/16/18 08:26 Plt Count 140 K/uL (130-400) 05/16/18 08:26 MPV 9.4 fL (7.2-11.7) 05/16/18 08:26 Neut % (Auto) 86.2 % (50.0-75.0) H 05/10/18 08:19 Lymph % (Auto) 3.6 % (20.0-40.0) L 05/10/18 08:19 [place] % (Auto) 6.7 % (0.0-10.0) 05/10/18 08:19 Eos % (Auto) 3.0 % (0.0-4.0) 05/10/18 08:19 Baso % (Auto) 0.5 % (0.0-2.0) 05/10/18 08:19 Neut # (Auto) 11.6 K/uL (1.8-7.0) H 05/10/18 08:19 Lymph # (Auto) 0.5 K/uL (1.0-4.3) L 05/10/18 08:19 [place] # (Auto) 0.9 K/uL (0.0-0.8) H 05/10/18 08:19 Eos # (Auto) 0.4 K/uL (0.0-0.7) 05/10/18 08:19 Baso # (Auto) 0.1 K/uL (0.0-0.2) 05/10/18 08:19 Neutrophils % (Manual) 91 % (50-75) H 05/10/18 08:19 Band Neutrophils % 3 % (0-2) H 05/07/18 08:17 Lymphocytes % (Manual) 3 % (20-40) L 05/10/18 08:19 Monocytes % (Manual) 4 % (0-10) 05/10/18 08:19 Eosinophils % (Manual) 2 % (0-4) 05/10/18 08:19 Platelet Estimate Normal (NORMAL) 05/10/18 08:19 Polychromasia Slight 05/10/18 08:19 Hypochromasia (manual) Moderate 05/10/18 08:19 Poikilocytosis (manual Slight 05/05/18 11:53 Anisocytosis (manual) Slight 05/10/18 08:19 Microcytosis (manual) Slight 05/05/18 11:53 Target Cells Slight 05/10/18 08:19 PT 17.9 SECONDS (9.7-12.2) H 05/09/18 19:34 INR 1.6 05/09/18 19:34 APTT 42 SECONDS (21-34) H 05/09/18 19:34 Sodium 134 mmol/L (132-148) 05/16/18 08:26 Potassium 4.0 mmol/L (3.6-5.2) 05/16/18 08:26 Chloride 98 mmol/L (98-107) 05/16/18 08:26 Carbon Dioxide 28 mmol/L (22-30) 05/16/18 08:26 Anion Gap 12 (10-20) 05/16/18 08:26 BUN 45 mg/dL (9-20) H 05/16/18 08:26 Creatinine 6.2 mg/dL (0.8-1.5) H 05/16/18 08:26 Est GFR ( Amer) 11 05/16/18 08:26 Est GFR (Non-Af Amer) 9 05/16/18 08:26 POC Glucose (mg/dL) 249 mg/dL (65-110) H 05/16/18 21:25 Random Glucose 129 mg/dL (75-110) H D 05/16/18 08:26 Calcium 8.2 mg/dl (8.6-10.4) L 05/16/18 08:26 Phosphorus 3.9 mg/dL (2.5-4.5) 05/16/18 08:26 Magnesium 2.1 mg/dL (1.6-2.3) 05/10/18 08:19 % Saturation 7.8 (20-55) L 05/06/18 07:02 Ferritin 1210.0 ng/mL 05/06/18 07:02 Total Bilirubin 0.8 mg/dL (0.2-1.3) 05/16/18 08:26 AST 30 U/L (17-59) 05/16/18 08:26 ALT 22 U/L (21-72) 05/16/18 08:26 Alkaline Phosphatase 180 U/L (38-126) H 05/16/18 08:26 Total Creatine Kinase 45 U/L (55-170) L 05/03/18 15:51 Total Protein 6.3 g/dL (6.3-8.3) 05/16/18 08:26 Albumin 2.3 g/dL (3.5-5.0) L 05/16/18 08:26 Globulin 4.0 gm/dL (2.2-3.9) H 05/16/18 08:26 Albumin/Globulin Ratio 0.6 (1.0-2.1) L 05/16/18 08:26 Vancomycin Trough 15.5 ug/mL (5.0-10.0) H 05/16/18 08:26 Random Vancomycin 6.9 ug/mL 05/12/18 07:16 - Hospital Course Hospital Course: 73 years old [place] Citizen male was brought to the ED at [facility] because he was unable to walk following a fall he sustained at home, hitting his left forehead to the border of his bed and the left shoulder and left hip to the floor. He also was complaining of poor appetite and a non-healing ulcer of the lateral aspect of the left foot, and multiple blisters of the left foot and the left lower leg. He denied any loss of consciousness, but was complaining of severe headache, pain of the left shoulder and the left hip. He missed hemodialysis for the past [address] scan and MRI of the left hip did not reveal any dislocation, any fracture. CT scan of the head revealed no brain hemorrhage. A CXR revealed a small left pleural effusion, and air-space disease of the left base, WBC: 14,3 Hgb: 9.4 Na+: 130 K+: 4.9 BUN: 89 Creatinine: 7.9 Glucose: 318. Patient is known to have a hypertension, a peripheral arterial disease, a non- insulin dependent diabetes mellitus, a chronic atrial fibrillation, an ESRD on hemodialysis, an anemia, a BPH. His medications included: Procrit 10,000 units s/c with each hemodialysis, Eliquis 2.5 mg PO BID, PhosLo 1,334 mg PO TID, G lipizide XL 5 mg PO qd, Januvia 25 mg PO qd, Crestor 10 mg PO qd, Metoprolol 25 mg PO BID, Flomax 0.4 mg PO qd. The patient was evaluated by Dr Lopes ( renal), Dr Weiner ( orthopedist), Dr Bailey ( Infectious disease ). The patient received local wound care and was started on Zosyn 2,25 g IVPB q 12h, and Vancomycin 1 g with each HD, Ferrlecit 125 mg IVPB q d. Wound and blood cultures revealed MRSA. An aorto-femoral angiogram on 05/10/2018 showed patent left anterior tibial artery to the left foot. An echocardiogram revealed normal LV and no valvular vegetation. The underwent HD three times a week. He improved rapidly with return of his appetite. Finally, blood cultures on 05/11/2018 was negative. He was discharged on 05/16/2018 to the subacute rehabilitation Center at [facility] for continued local left foot ulcer. He will continue Zosyn IVBP for another 7 days, and Vancomycin IV with each HD for another 42 days. - Date & Time of H&P Date of H&P: 05/04/18 Discharge Exam - Head Exam Head Exam: NORMAL INSPECTION, NORMOCEPHALIC - Eye Exam Eye Exam: Normal appearance Pupil Exam: NORMAL ACCOMODATION - ENT Exam ENT Exam: Normal Exam - Neck Exam Neck exam: Normal Inspection - Respiratory Exam Respiratory Exam: Clear to PA & Lateral, NORMAL BREATHING PATTERN - Cardiovascular Exam Cardiovascular Exam: Irregular Rhythm - GI/Abdominal Exam GI & Abdominal Exam: Normal Bowel Sounds, Unremarkable - Rectal Exam Rectal Exam: Deferred - Exam Exam: NORMAL INSPECTION - Extremities Exam Additional comments: Ulcer of the left foot clean. - Back Exam Back exam: NORMAL INSPECTION - Neurological Exam Neurological exam: Alert, Oriented x3 - Psychiatric Exam Psychiatric exam: Anxious - Skin Skin Exam: Intact, Normal Color Discharge Plan - Discharge Medications Prescriptions: Vancomycin 1 gm/NS 200 ml 1 gm IVPB TTS 42 Days bag - Follow Up Plan Condition: GOOD Disposition: REHAB FACILITY/REHAB UNIT Instructions: Peripheral Artery Disease and Claudication, Heart Healthy Diet, Heart Failure, Adult (DC), Cellulitis (Skin Infection), Adult (DC), Diabetes and Infections, Cardiomyopathy (DC), End Stage Kidney Disease (DC), Dialysis and Diet Additional Instructions: PLACE UNDER THE SERVICE OF DR WATKINS OR ANY ADMITTING MD AT [facility]----CALL FOR ADMITTING ORDER MAKE ARRANGEMENT TO FOLLOW UP WITH DR LEONEL AMAYA IN HIS OFFICE -----CALL FOR APPOINTMENT HEMODIALYSIS SCHEDULE CONTINUE HOME MEDICATION NEW PRESCRIPTION ZOSYN IVPB Q8H FOR 7 DAY VANCO 1 G TTHS IVPB FOR 42 DAYS ACTIVITY TOLERATED AND PHYSICAL THERAPY PER FACILITY PER PROTOCOL FOOT CARE Cleansed ulcerations with copious saline, dressed ulcerations with bactroban No surgical intervention at this time by podiatry Multipodus boots to be worn at all times in bed to left and right SACRAL WOUND CARE Recommending to apply aloevesta to entire sacral region 3x/day and prn, and must reposition frequently using a foam wedge to optimize offloading. CALL DR WATKINS OR ADMITTING MD FOR FURTHER ORDER Referrals: Lit Weiner III, MD [Staff Provider] - Jarocho Lopes MD [Staff Provider] - Colby Bailey MD [Staff Provider] - Kulwant Macias Jr., MD [Staff Provider] - Oz Watkins MD [Staff Provider] - Alfredo Cavanaugh DPM [Staff Provider] - Clinical Quality Measures - Date & Time of Discharge Summary Date of Discharge Summary: 05/19/18 Time of Discharge Summary: 00:30
== END 2018-05-16 22:03 | DRG 299 ==
LOC: C.ER 11:59 → C.9E 19:06 → C.5S 21:36
PROVIDERS: ADMIT Internal Medicine Cardiovascular Disease; ATTEND Internal Medicine Cardiovascular Disease
PROC: 5A1D70Z Performance of Urinary Filtration, Intermittent, Less than 6 Hours Per Day (ICD-10-PCS; 2018-05-05)
PROC: B41D1ZZ Fluoroscopy of Aorta and Bilateral Lower Extremity Arteries using Low Osmolar Contrast (ICD-10-PCS; principal; 2018-05-10)
DX: E11.52 Type 2 diabetes mellitus with diabetic peripheral angiopathy with gangrene (principal); N18.6 End stage renal disease; L03.116 Cellulitis of left lower limb; I13.2 Hypertensive heart and chronic kidney disease with heart failure and with stage 5 chronic kidney disease, or end stage renal disease; L97.429 Non-pressure chronic ulcer of left heel and midfoot with unspecified severity; L97.419 Non-pressure chronic ulcer of right heel and midfoot with unspecified severity; L03.115 Cellulitis of right lower limb; R78.81 Bacteremia; E11.22 Type 2 diabetes mellitus with diabetic chronic kidney disease; E11.621 Type 2 diabetes mellitus with foot ulcer; I48.2 Chronic atrial fibrillation; E11.65 Type 2 diabetes mellitus with hyperglycemia; M16.12 Unilateral primary osteoarthritis, left hip; N40.0 Benign prostatic hyperplasia without lower urinary tract symptoms; Z79.84 Long term (current) use of oral hypoglycemic drugs; I50.9 Heart failure, unspecified; E78.5 Hyperlipidemia, unspecified; S70.02XA Contusion of left hip, initial encounter; S00.93XA Contusion of unspecified part of head, initial encounter; W01.0XXA Fall on same level from slipping, tripping and stumbling without subsequent striking against object, initial encounter; Z99.2 Dependence on renal dialysis; E78.00 Pure hypercholesterolemia, unspecified; Z79.4 Long term (current) use of insulin

== ENCOUNTER 2018-08-23 11:37 | Inpatient (IN) | payer MEDICARE, BC ==
[2018-08-23 11:42] VITALS: BMI 22.1
[2018-08-23 13:14] LABS: BASO # 0.1 K/uL (0.0-0.2); BASO % 0.6 % (0.0-2.0); EOS # 0.1 K/uL (0.0-0.7); EOS % 0.7 % (0.0-4.0); LYMPH # 0.8 K/uL (1.0-4.3); LYMPH % 8.4 % (20.0-40.0); MEAN CORPUSCULAR HEMOGLOBIN 34.5 pg (27.0-31.0); MEAN CORPUSCULAR HGB CONC 33.2 g/dL (33.0-37.0); MEAN PLATELET VOLUME 9.7 fL (7.2-11.7); MONO # 0.7 K/uL (0.0-0.8); NEUT # 7.6 K/uL (1.8-7.0); NEUT % 82.3 % (50.0-75.0); PLATELET COUNT 214 K/uL (130-400); RBC 3.43 Mil/uL (4.40-5.90); RED CELL DISTRIBUTION WIDTH 17.2 % (11.5-14.5); WHITE BLOOD COUNT 9.3 K/uL (4.8-10.8)
[2018-08-23 13:25] LABS: HEMOGLOBIN 11.8 g/dL (12.0-18.0)
[2018-08-23 13:33] LABS: INR 1.2; PROTHROMBIN TIME 12.8 SECONDS (9.7-12.2)
[2018-08-23 13:36] LABS: ANISOCYTOSIS SLIGHT; BANDS 1 % (0-2); EOSINOPHIL 1 % (0-4); LYMPHOCYTE 7 % (20-40); MONOCYTE 8 % (0-10); NEUTROPHIL 83 % (50-75); PLATELET ESTIMATE NORMAL (NORMAL); TOTAL CELLS COUNTED 100
[2018-08-23 14:07] LABS: CALCIUM 7.7 mg/dl (8.6-10.4)
[2018-08-23 14:11] LABS: ALB/GLOB RATIO 0.6 (1.0-2.1); ALBUMIN 2.9 g/dL (3.5-5.0)
--- NOTE | 2018-08-23 14:25 | CP.PCM.CON ---
History of Present Illness - History of Present Illness History of Present Illness: Podiatry Consult Note: Dr. Cavanaugh 73 year old male with PMHx of DM, HTN, ESRD on HD, chronic atrial fibrillation, HLD was seen and evaluated at bedside in ED with attending Dr. Cavanaugh for worsening bilateral LE ulcerations (L>R). Patient is accompanied by at bedside. At the time of the visit, patient is sleeping and appears in NAD. states that she was advised Dr. Macias will be coming to see the patient soon. states that the wounds appear worst than it did last week in Dr. Cavanaugh's office. Patient denies of having any pain to bilateral LE at this time. Denies of having any recent F/N/V/C/SOB/CP/headache. No other pedal complains at this time. PMHx: PMHx of DM, HTN, ESRD on HD, chronic atrial fibrillation, HLD PSHx: AV fistula, cataract surgery, multiple wound debridements with skin grafts to left ankle and foot ulcers Allergies: NKDA SHx: denies EtOH, cigarette or illicit drug use Review of Systems - Constitutional Constitutional: As Per HPI Past Patient History - Infectious Disease Hx of Infectious Diseases: None - Tetanus Immunizations Tetanus Immunization: Unknown - Past Medical History & Family History Past Medical History?: Yes - Past Social History Smoking Status: Never Smoked - CARDIAC Hx Cardiac Disorders: Yes Hx Congestive Heart Failure: Yes Hx Hypercholesterolemia: Yes Hx Hypertension: Yes - PULMONARY Hx Respiratory Disorders: No - NEUROLOGICAL Hx Neurological Disorder: No - HEENT Hx HEENT Problems: Yes Hx Cataracts: Yes (BILAT.) - RENAL Hx Chronic Kidney Disease: Yes Hx Renal Failure: Yes (ESRD, HD,) - ENDOCRINE/METABOLIC Hx Endocrine Disorders: Yes Hx Diabetes Mellitus Type 2: Yes - HEMATOLOGICAL/ONCOLOGICAL Hx Blood Disorders: Yes Hx Blood Transfusions: Yes - INTEGUMENTARY Hx Dermatological Problems: No - MUSCULOSKELETAL/RHEUMATOLOGICAL Hx Musculoskeletal Disorders: Yes Hx Arthritis: Yes - GASTROINTESTINAL Hx Gastrointestinal Disorders: Yes Other/Comment: BLOOD IN STOOL - GENITOURINARY/GYNECOLOGICAL Hx Genitourinary Disorders: Yes Hx Hematuria: Yes Hx Prostate Problems: Yes Hx Urinary Tract Infection: Yes - PSYCHIATRIC Hx Substance Use: No - SURGICAL HISTORY Hx Surgeries: Yes Hx Arteriovenous Shunt: Yes (AV FISTULA RIGHT ARM) Hx Cataract Extraction: Yes (BILAT.) Hx Eye Surgery: Yes (LEFT EYE) Other/Comment: SKIN GRAFT LEFT FOOT - ANESTHESIA Hx Anesthesia: Yes Hx Anesthesia Reactions: No Hx Malignant Hyperthermia: No Meds Allergies/Adverse Reactions: Allergies Allergy/AdvReac Type Severity Reaction Status Date / Time No Known Allergies Allergy Verified 08/23/18 11:42 Physical Exam - Constitutional Appears: Well, Non-toxic, No Acute Distress - Head Exam Head Exam: ATRAUMATIC - Extremities Exam Additional comments: Lower extremity focused exam: VASC: DP/PT pulses are non-palpable at this time. Temperature gradient warm to cool from proximal to distal on the left but warm to warm on the right. CFT slightly delayed, > 3 sec to all digits on the left and approx 3 sec to the right; diffuse non-pitting edema noted to the distal left LE grossly DERM: Open ulceration noted to left lateral malleolus, circular in shape and approx 3cm in diameter and 0.4cm in depth with 80% fibrotic and 20% granular wound base, with some necrotic tissue noted centrally to wound bed. Macerated wound borders. mild purulent drainage noted. No tunneling or underming, no fluctuance. Additional healed ulceration noted to left lateral midfoot with overlying hyperkeratotic tissue. Stage 2 pressure ulceration to left heel with thin fragile erythematous skin with no break in skin noted; Right mid leg wound measuring approx 2.5 cm x 2.0 cm with approx 80 percent fibrosis and 20 percent grannular base, no purulence, slight malodor; LLE clinically appears worst than RLE NEURO: Protective sensation slightly diminished ORTHO: No tenderness to palpation of left lower extremity ulcerations - Neurological Exam Neurological exam: Alert, Oriented x3 - Psychiatric Exam Psychiatric exam: Normal Affect, Normal Mood Results - Vital Signs Recent Vital Signs: Last Vital Signs Temp 97.2 F L 08/23/18 11:59 Pulse 90 08/23/18 11:59 Resp 14 08/23/18 11:59 BP 134/69 08/23/18 11:59 Pulse Ox 97 08/23/18 11:59 - Labs Result Diagrams: 08/23/18 13:10 08/23/18 13:51 Labs: Laboratory Results - last 24 hr 08/23/18 08/23/18 08/23/18 13:10 13:10 13:51 WBC 9.3 RBC 3.43 L Hgb 11.8 L D Hct 35.7 MCV 104.0 H D MCH 34.5 H MCHC 33.2 RDW 17.2 H Plt Count 214 MPV 9.7 Neut % (Auto) 82.3 H Lymph % (Auto) 8.4 L [place] % (Auto) 8.0 Eos % (Auto) 0.7 Baso % (Auto) 0.6 Neut # (Auto) 7.6 H Lymph # (Auto) 0.8 L [place] # (Auto) 0.7 Eos # (Auto) 0.1 Baso # (Auto) 0.1 Neutrophils % (Manual) 83 H Band Neutrophils % 1 Lymphocytes % (Manual) 7 L Monocytes % (Manual) 8 Eosinophils % (Manual) 1 Platelet Estimate Normal Anisocytosis (manual) Slight PT 12.8 H INR 1.2 APTT 34.0 Sodium 132 Potassium 4.8 Chloride 97 L Carbon Dioxide 26 Anion Gap 14 BUN 54 H Creatinine 4.6 H Est GFR ( Amer) 15 Est GFR (Non-Af Amer) 13 Random Glucose 128 H Calcium 7.7 L Total Bilirubin 1.1 AST 57 ALT 7 L D Alkaline Phosphatase 126 D Total Protein 7.9 Albumin 2.9 L D Globulin 5.0 H Albumin/Globulin Ratio 0.6 L Assessment & Plan - Assessment and Plan (Free Text) Assessment: 73 year old male with PMHx of DM, HTN, ESRD on HD, chronic atrial fibrillation, HLD was evaluated for worsening multiple bilateral LE ulcerations (L>R) Plan: Patient seen and evaluated with attending Dr. Cavanaugh Discussed plan with Dr. Cavanaugh VSS Ankle X-rays ordered Dressing to bilateral LE using xerofrom, ABD, DSD Wound cultures: pending ID consult, IV abx as per ID Vascular consult, Dr. Macias No plans for surgical intervention from podiatry standpoint at this time Will continue with local wound care Podiatry will continue to monitor patient while in-house Thank you for the podiatry consult and allowing to take part in patient care - Date & Time Date: 08/23/18 Time: 14:39
--- NOTE | 2018-08-23 15:18 | C.PDOC ---
History Of Present Illness 73 year male with PMHx of Peripheral artery disease, NIDDM, CHF, HTN, and ESRD on dialysis presents to the ED sent in by Dr. Macias for evaluation of chronic leg and feet ulcers with cellulitis. reports patient is in rehabilitation and has had the pressure ulcers for a long time. He was last hospitalized for chronic ulcers in May 2018. Patient also woke up this morning with upper and lower eyelid swelling in the right eye. He was last seen by Dr Macias last week and advised evaluation in the hospital for vascular studies. Patient presents today. Time Seen by Provider: 08/23/18 13:24 Chief Complaint (Nursing): Abnormal Skin Integrity Past Medical History Vital Signs: Last Vital Signs Temp 98.7 F 08/23/18 14:45 Pulse 70 08/23/18 14:45 Resp 19 08/23/18 14:45 BP 124/56 L 08/23/18 14:45 Pulse Ox 96 08/23/18 14:45 - Medical History PMH: Arthritis, Cardia Arrhythmia (A FIB/FLUTTER), CHF, Diabetes, HTN, Hypercholesterolemia, Chronic Kidney Disease Denies: CVA Other Surgeries: Cataract bilat, AV fistula, Skin graft leg - [facility] Procedures (05/03/18) EXCISION OF LEFT FOOT SKIN, EXTERNAL APPROACH (08/22/17) EXCISION OF LEFT METATARSAL, OPEN APPROACH, DIAGNOSTIC (08/22/17) FLUOROSCOPY OF AORTA, BI LE ART USING L OSM CONTRAST (05/03/18) REPLACE L FOOT SKIN W AUTOL SUB, 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, 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) Family History: States: Unknown Family Hx - Social History Hx Alcohol Use: No Hx Substance Use: No - Immunization History Hx Tetanus Toxoid Vaccination: No Hx Influenza Vaccination: No Hx Pneumococcal Vaccination: Yes Review Of Systems Constitutional: Negative for: Fever, Chills Respiratory: Negative for: Shortness of Breath Gastrointestinal: Negative for: Nausea, Vomiting, Diarrhea Skin: Positive for: Other (pressure ulcers to ankle and feet ) Neurological: Negative for: Weakness, Numbness Physical Exam - Physical Exam Appears: Non-toxic, No Acute Distress, Other (cachectic) Skin: Warm, Dry Head: Normacephalic Eye(s): bilateral: PERRL, EOMI, Other (edema to right upper and lower eyelids, mild injection of left eye ) Neck: Supple Chest: Symmetrical Cardiovascular: Rhythm Regular Respiratory: Normal Breath Sounds, No Rales, No Rhonchi, No Wheezing Gastrointestinal/Abdominal: Soft, No Tenderness Extremity: Other (decubitus ulcers on both heels and feet, diabetic ulcer on left ankle, left ankle is red, swollen and hot. ) Pulses: Left Dorsalis Pedis: Absent, Right Dorsalis Pedis: Absent Neurological/Psych: Oriented x3, Normal Speech ED Course And Treatment - Laboratory Results Result Diagrams: 08/23/18 13:10 08/23/18 13:51 Lab Results: PT 12.8 SECONDS (9.7-12.2) H 08/23/18 13:10 INR 1.2 08/23/18 13:10 APTT 34.0 SECONDS (21-34) 08/23/18 13:10 Total Bilirubin 1.1 mg/dL (0.2-1.3) 08/23/18 13:51 AST 57 U/L (17-59) 08/23/18 13:51 ALT 7 U/L (21-72) L D 08/23/18 13:51 Alkaline Phosphatase 126 U/L (38-126) D 08/23/18 13:51 Total Protein 7.9 g/dL (6.3-8.3) 08/23/18 13:51 Albumin 2.9 g/dL (3.5-5.0) L D 08/23/18 13:51 Globulin 5.0 gm/dL (2.2-3.9) H 08/23/18 13:51 Albumin/Globulin Ratio 0.6 (1.0-2.1) L 08/23/18 13:51 Lab Interpretation: Abnormal (BUN 54, Cr 4.6, Alb 2.9 Ca 7.7) ECG: Interpreted By [place] ECG Rhythm: Atrial Fibrillation, ST/T Changes (inversions V1-3, III, AVF) ECG Interpretation: No Acute Changes O2 Sat by Pulse Oximetry: 96 (RA) Pulse Ox Interpretation: Normal - Physician Consult Information Time Consulting Physician Contacted: 15:56 Outcome Of Conversation: Patient was seen in the ED by Dr Bailey. Case discussed with Dr Macias and Dr Watkins. He will be admitted for treatment of PVD with cellulitis. Medical Decision Making Medical Decision Making: Plan - EKG - XR B/L ankles - XR B/L tibia/fibula - UA - Bloodwork Disposition - Disposition Disposition: HOSPITALIZED Disposition Time: 15:58 Condition: FAIR - POA Present On Arrival: None - Clinical Impression Clinical Impression: Infected ulcer of skin, ESRD on hemodialysis, Cellulitis of left lower leg, Non-healing open wound of heel - Scribe Statement The provider has reviewed the documentation as recorded by the Micaibtyson Nelson All medical record entries made by the Micaibtyson were at my direction and personally dictated by me. I have reviewed the chart and agree that the record accurately reflects my personal performance of the history, physical exam, medical decision making, and the department course for this patient. I have also personally directed, reviewed, and agree with the discharge instructions and disposition.
--- NOTE | 2018-08-23 15:37 | RAD ---
Date of service: 08/23/2018 PROCEDURE: Bilateral Ankle Radiographs. HISTORY: multiple wounds COMPARISON: None available. TECHNIQUE: 6 views obtained. FINDINGS: BONES: Right Ankle: No fracture. No lytic or blastic osseous lesion. No osseous erosion or periosteal reaction. Left Ankle: No acute fracture. There is linear lucency traversing the distal aspect of the medial malleolus of uncertain significance. Correlate for fracture. This is only identifiable in the oblique view. JOINTS: Right Ankle: Normal. No osteoarthritis. Ankle mortise maintained. Talar dome intact. 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 There is slight talar tilt. There is subchondral sclerosis at the medial aspect of the ankle mortise. SOFT TISSUES: Right Ankle: Normal. Vascular calcification. Left Ankle: Medial soft tissue swelling. Vascular calcification. OTHER FINDINGS: None. IMPRESSION: Tibiotalar osteoarthritis. There is a lucency traversing the tip of the medial malleolus. It is possible that this represents a fracture and this should be clinically correlated. There is medial soft tissue swelling. There is vascular calcification noted.
--- NOTE | 2018-08-23 15:41 | RAD ---
Date of service: 08/23/2018 PROCEDURE: Radiographs of the bilateral Tibiae and Fibulae. HISTORY: multiple wounds COMPARISON: None available. TECHNIQUE: Frontal and lateral views obtained. 4 views obtained. FINDINGS: BONES: RIGHT TIBIA: No fracture or destructive lesion. LEFT TIBIA: No fracture or destructive lesion. JOINT SPACES: RIGHT TIBIA: Normal. LEFT TIBIA: Normal. SOFT TISSUES: RIGHT TIBIA: Vascular calcification LEFT TIBIA: Vascular calcification OTHER FINDINGS: None. IMPRESSION: Unremarkable radiographs of the bilateral tibia and fibula.
--- NOTE | 2018-08-23 17:52 | CP.PCM.CON ---
History of Present Illness - History of Present Illness History of Present Illness: Vascular Surgery Consult Note for Dr. Macias Reason for consult: LE ulcers 73 M with PMH that includes PAD, DM, CHF, HTN, ESRD on HD, chronic atrial fibrillation, HLD presents to [facility] for worsening bilateral LE ulcerations. Patient iseen and evaluated in the ED. Patient has chronic ulcers. He has been in rehab recently. He was last hospitalized in May. Radhanet has been following with Dr. Macias and was last seen 1 week ago. states that the wounds appear worst than it did last week. Dr. Macias advised patient and to get vascular work up for ulcers. Patient denies any pain to bilateral LE. He has palpable pulses bilaterally. Denies Fever/chills, SOB, CP, abd pain, n/v/d, constipation, urinary symptoms, numbness/tingling. PMH: PAD, CHF, DM, HTN, ESRD on HD, atrial fibrillation, HLD PSH: AV fistula, cataract surgery, multiple wound debridements with skin grafts to left ankle and foot ulcers All: NKDA Review of Systems - Review of Systems All systems: reviewed and no additional remarkable complaints except (as per HPI) Past Patient History - Infectious Disease Hx of Infectious Diseases: None - Tetanus Immunizations Tetanus Immunization: Unknown - Past Medical History & Family History Past Medical History?: Yes - Past Social History Smoking Status: Never Smoked - CARDIAC Hx Cardia Arrhythmia: Yes (A FIB/FLUTTER) Hx Congestive Heart Failure: Yes Hx Hypercholesterolemia: Yes Hx Hypertension: Yes - PULMONARY Hx Respiratory Disorders: No - NEUROLOGICAL Hx Neurological Disorder: No - HEENT Hx HEENT Problems: Yes Hx Cataracts: Yes (BILAT.) - RENAL Hx Chronic Kidney Disease: Yes - ENDOCRINE/METABOLIC Hx Endocrine Disorders: Yes Hx Diabetes Mellitus Type 2: Yes - HEMATOLOGICAL/ONCOLOGICAL Hx Blood Disorders: Yes Hx Blood Transfusions: Yes - INTEGUMENTARY Hx Dermatological Problems: No - MUSCULOSKELETAL/RHEUMATOLOGICAL Hx Arthritis: Yes - GASTROINTESTINAL Hx Gastrointestinal Disorders: Yes Other/Comment: BLOOD IN STOOL - GENITOURINARY/GYNECOLOGICAL Hx Genitourinary Disorders: Yes Hx Hematuria: Yes Hx Prostate Problems: Yes Hx Urinary Tract Infection: Yes - PSYCHIATRIC Hx Substance Use: No - SURGICAL HISTORY Hx Surgeries: Yes Hx Arteriovenous Shunt: Yes (AV FISTULA RIGHT ARM) Hx Cataract Extraction: Yes (BILAT.) Hx Eye Surgery: Yes (LEFT EYE) Other/Comment: SKIN GRAFT LEFT FOOT - ANESTHESIA Hx Anesthesia: Yes Hx Anesthesia Reactions: No Hx Malignant Hyperthermia: No Meds Allergies/Adverse Reactions: Allergies Allergy/AdvReac Type Severity Reaction Status Date / Time No Known Allergies Allergy Verified 08/23/18 11:42 - Medications Medications: Current Medications Vancomycin HCl 1 gm/ Sodium (Chloride) 250 mls @ 166.7 mls/hr IVPB STAT STA; Protocol Stop: 08/23/18 17:54 Vancomycin HCl 1 gm/ Sodium (Chloride) 250 mls @ 166.7 mls/hr IVPB MWF DON; Protocol Physical Exam - Constitutional Appears: No Acute Distress, Chronically Ill - Head Exam Head Exam: ATRAUMATIC, NORMOCEPHALIC - Eye Exam Eye Exam: EOMI Pupil Exam: PERRL Additional comments: L eye red conjuctiva with drainage - ENT Exam ENT Exam: Mucous Membranes Moist - Respiratory Exam Respiratory Exam: NORMAL BREATHING PATTERN - Cardiovascular Exam Cardiovascular Exam: REGULAR RHYTHM - GI/Abdominal Exam GI & Abdominal Exam: Soft. absent: Tenderness - Rectal Exam Rectal Exam: Deferred - Extremities Exam Extremities exam: Positive for: pedal pulses present. Negative for: tenderness Additional comments: ulcers bilaterally, left worse than right, palpable dp/pop bilaterally, both legs warm to touch distally - Back Exam Back exam: absent: CVA tenderness (L), CVA tenderness (R) - Neurological Exam Neurological exam: Alert - Psychiatric Exam Psychiatric exam: Flat Affect - Skin Skin Exam: Dry, Warm Results - Vital Signs Recent Vital Signs: Last Vital Signs Temp 98.6 F 08/23/18 16:45 Pulse 91 H 08/23/18 16:45 Resp 19 08/23/18 14:45 BP 118/64 08/23/18 16:45 Pulse Ox 95 08/23/18 16:45 - Labs Result Diagrams: 08/23/18 13:10 08/23/18 13:51 Labs: Laboratory Results - last 24 hr 08/23/18 08/23/18 08/23/18 13:10 13:10 13:51 WBC 9.3 RBC 3.43 L Hgb 11.8 L D Hct 35.7 MCV 104.0 H D MCH 34.5 H MCHC 33.2 RDW 17.2 H Plt Count 214 MPV 9.7 Neut % (Auto) 82.3 H Lymph % (Auto) 8.4 L [place] % (Auto) 8.0 Eos % (Auto) 0.7 Baso % (Auto) 0.6 Neut # (Auto) 7.6 H Lymph # (Auto) 0.8 L [place] # (Auto) 0.7 Eos # (Auto) 0.1 Baso # (Auto) 0.1 Neutrophils % (Manual) 83 H Band Neutrophils % 1 Lymphocytes % (Manual) 7 L Monocytes % (Manual) 8 Eosinophils % (Manual) 1 Platelet Estimate Normal Anisocytosis (manual) Slight PT 12.8 H INR 1.2 APTT 34.0 Sodium 132 Potassium 4.8 Chloride 97 L Carbon Dioxide 26 Anion Gap 14 BUN 54 H Creatinine 4.6 H Est GFR ( Amer) 15 Est GFR (Non-Af Amer) 13 Random Glucose 128 H Calcium 7.7 L Total Bilirubin 1.1 AST 57 ALT 7 L D Alkaline Phosphatase 126 D Total Protein 7.9 Albumin 2.9 L D Globulin 5.0 H Albumin/Globulin Ratio 0.6 L Assessment & Plan - Assessment and Plan (Free Text) Assessment: 73 M with PAD and chronic LE ulcers Plan: -f/u FARRUKH/PVR -f/u CTA -HD as per regular scehdule -Medical management as per primary -Discussed with Dr. Gilberto Ambrosio PGY2 - Date & Time Date: 08/23/18 Time: 18:00
[2018-08-23] MEDS: (Novolog) Insulin Aspart, Recombinant 100 u/ml 10 ml vial SC SCH (21:41)
--- NOTE | 2018-08-23 21:54 | CP.PCM.CON ---
History of Present Illness - History of Present Illness History of Present Illness: 73 year male with PMHx of Peripheral artery disease, NIDDM, CHF, HTN, and ESRD on dialysis presents to the ED sent in by Dr. Macias for evaluation of chronic leg and foott ulcers with cellulitis. Patient is in rehabilitation and has had the pressure ulcers for a long time. He was last hospitalized for chronic ulcers in May 2018. Recently ulcers have gotten worse and appear to be infected Has hx of severe MRSA infection in past - Medical History PMH: Arthritis, Cardia Arrhythmia (A FIB/FLUTTER), CHF, Diabetes, HTN, Hypercholesterolemia, Chronic Kidney Disease Denies: CVA Other Surgeries: Cataract bilat, AV fistula, Skin graft leg - [facility] Procedures (05/03/18) EXCISION OF LEFT FOOT SKIN, EXTERNAL APPROACH (08/22/17) EXCISION OF LEFT METATARSAL, OPEN APPROACH, DIAGNOSTIC (08/22/17) FLUOROSCOPY OF AORTA, BI LE ART USING L OSM CONTRAST (05/03/18) REPLACE L FOOT SKIN W AUTOL SUB, FULL THICK, OLIVE KNOCKER (08/22/17) Family History: States: Unknown Family Hx Review of Systems - Review of Systems All systems: reviewed and no additional remarkable complaints except - Constitutional Constitutional: As Per HPI - EENT Eyes: absent: As Per HPI, Blind Spots, Blurred Vision, Change in Vision, Decreased Night Vision, Diplopia, Discharge, Dry Eye, Exophthalmos, Floaters, Irritation, Itchy Eyes, Loss of Peripheral Vision, Pain, Photophobia, Requires Corrective Lenses, Sees Flashes, Spots in Vision, Tunnel Vision, Other Visual Disturbances, Loss of Vision, Other Ears: absent: As Per HPI, Decreased Hearing, Ear Discharge, Ear Pain, Tinnitus, Abnormal Hearing, Disequilibrium, Dizziness, Other Nose/Mouth/Throat: absent: As Per HPI, Epistaxis, Nasal Congestion, Nasal Discharge, Nasal Obstruction, Nasal Trauma, Nose Pain, Post Nasal Drip, Sinus Pain, Sinus Pressure, Bleeding Gums, Change in Voice, Dental Pain, Dry Mouth, Dysphagia, Halitosis, Hoarsness, Lip Swelling, Mouth Lesions, Mouth Pain, Odynophagia, Sore Throat, Throat Swelling, Tongue Swelling, Facial Pain, Neck Pain, Neck Mass, Other - Cardiovascular Cardiovascular: absent: As Per HPI, Acrocyanosis, Chest Pain, Chest Pain at Rest, Chest Pain with Activity, Claudication, Diaphoresis, Dyspnea, Dyspnea on Exertion, Edema, Irregular Heart Rhythm, Pain Radiating to Arm/Neck/Jaw, Leg Edema, Leg Ulcers, Lightheadedness, Orthopnea, Palpitations, Paroxysmal Nocturnal Dyspnea, Pedal Edema, Radiating Pain, Rapid Heart Rate, Slow Heart Rate, Syncope, Other - Respiratory Respiratory: absent: As Per HPI, Cough, Dyspnea, Hemoptysis, Dyspnea on Exertion, Wheezing, Snoring, Stridor, Pain on Inspiration, Chest Congestion, Excessive Mucous Production, Change in Mucous Color, Pain with Coughing, Other - Gastrointestinal Gastrointestinal: absent: As Per HPI, Abdominal Pain, Belching, Bloating, Change in Bowel Habits, Change in Stool Character, Coffee Ground Emesis, Constipation, Cramping, Diarrhea, Dyspepsia, Dysphagia, Early Satiety, Excessive Flatus, Fecal Incontinence, Heartburn, Hematemesis, Hematochezia, Loose Stools, Melena, Nausea, Odynophagia, Temesmus, Vomiting, Other - Genitourinary Genitourinary: absent: As Per HPI, Change in Urinary Stream, Difficulty Urinating, Dysuria, Flank Pain, Hematuria, Pyuria, Nocturia, Urinary Incontinence, Urinary Frequency, Urinary Hesitance, Urinary Urgency, Voiding Freq/Small Amts, Freq UTI, Hx Renal/Bladder Calculi, Hx /Renal Surgery, Bladder Distension, Other - Musculoskeletal Musculoskeletal: As Per HPI, Abnormal Gait - Integumentary Integumentary: Skin Pain, Wounds - Neurological Neurological: As Per HPI - Psychiatric Psychiatric: absent: As Per HPI, Abnormal Sleep Pattern, Anhedonia, Anxiety, Auditory Hallucinations, Behavioral Changes, Change in Appetite, Change in [place], Confusion, Depression, Difficulty Concentrating, Hallucinations, Homicidal Ideation, Hopelessness, Irritability, Memory Loss, Mood Swings, Panic Attacks, Paranoia, Suicidal Ideation, Visual Hallucinations, Tactile Hallucinations, Other - Endocrine Endocrine: absent: As Per HPI, Change in Body Appearance, Change in Libido, Cold Intolorance, Deepening of Voice, Excessive Sweating, Fatigue, Flushing, Heat Intolorance, Increase in Ring/Shoe/Hat Size, Palpitations, Polydipsia, Polyphagia, Polyuria, Other - Hematologic/Lymphatic Hematologic: As Per HPI Past Patient History - Infectious Disease Hx of Infectious Diseases: None - Tetanus Immunizations Tetanus Immunization: Unknown - Past Medical History & Family History Past Medical History?: Yes - Past Social History Smoking Status: Never Smoked - CARDIAC Hx Cardia Arrhythmia: Yes (A FIB/FLUTTER) Hx Congestive Heart Failure: Yes Hx Hypercholesterolemia: Yes Hx Hypertension: Yes - PULMONARY Hx Respiratory Disorders: No - NEUROLOGICAL Hx Neurological Disorder: No - HEENT Hx HEENT Problems: Yes Hx Cataracts: Yes (BILAT.) - RENAL Hx Chronic Kidney Disease: Yes - ENDOCRINE/METABOLIC Hx Endocrine Disorders: Yes Hx Diabetes Mellitus Type 2: Yes - HEMATOLOGICAL/ONCOLOGICAL Hx Blood Disorders: Yes Hx Blood Transfusions: Yes - INTEGUMENTARY Hx Dermatological Problems: No - MUSCULOSKELETAL/RHEUMATOLOGICAL Hx Arthritis: Yes - GASTROINTESTINAL Hx Gastrointestinal Disorders: Yes Other/Comment: BLOOD IN STOOL - GENITOURINARY/GYNECOLOGICAL Hx Genitourinary Disorders: Yes Hx Hematuria: Yes Hx Prostate Problems: Yes Hx Urinary Tract Infection: Yes - PSYCHIATRIC Hx Substance Use: No - SURGICAL HISTORY Hx Surgeries: Yes Hx Arteriovenous Shunt: Yes (AV FISTULA RIGHT ARM) Hx Cataract Extraction: Yes (BILAT.) Hx Eye Surgery: Yes (LEFT EYE) Other/Comment: SKIN GRAFT LEFT FOOT - ANESTHESIA Hx Anesthesia: Yes Hx Anesthesia Reactions: No Hx Malignant Hyperthermia: No Meds Allergies/Adverse Reactions: Allergies Allergy/AdvReac Type Severity Reaction Status Date / Time No Known Allergies Allergy Verified 08/23/18 11:42 - Medications Medications: Current Medications Acetaminophen (Tylenol 325mg Tab) 325 mg PO Q6 PRN PRN Reason: Pain, Mild (1-3) Amlodipine Besylate (Norvasc) 5 mg PO DAILY [facility] Heparin Sodium (Porcine) (Heparin) 5,000 units SC Q8 [facility] Vancomycin HCl 1 gm/ Sodium (Chloride) 250 mls @ 166.7 mls/hr [facility]; Protocol Insulin Aspart (Novolog) 0 unit SC ACHS [facility]; Protocol Last Admin: 08/23/18 21:41 Dose: Not Given Insulin Glargine (Lantus) 16 unit SC HS [facility] Rosuvastatin Calcium (Crestor) 5 mg PO HS [facility] Sevelamer Carbonate (Renvela) 800 mg PO TIDCC [facility] Tamsulosin HCl (Flomax) 0.4 mg PO DAILY [facility] Vitamin B Complex/Vit C/Folic Acid (Nephro-Amita) 1 tab PO 0800 [facility] Physical Exam - Constitutional Appears: Toxic, Cachectic, Chronically Ill - Head Exam Head Exam: ATRAUMATIC (x), NORMAL INSPECTION, NORMOCEPHALIC - Eye Exam Eye Exam: absent: Scleral icterus Pupil Exam: NORMAL ACCOMODATION - ENT Exam ENT Exam: Mucous Membranes Dry, Normal External Ear Exam, Normal Oropharynx - Neck Exam Neck exam: Negative for: Lymphadenopathy - Respiratory Exam Respiratory Exam: Decreased Breath Sounds, Prolonged Expiratory Phase, Rhonchi - Cardiovascular Exam Cardiovascular Exam: Tachycardia, REGULAR RHYTHM, +S1, +S2 - GI/Abdominal Exam GI & Abdominal Exam: Diminished Bowel Sounds, Soft. absent: Tenderness - Rectal Exam Rectal Exam: Deferred - Exam Exam: NORMAL INSPECTION - Extremities Exam Extremities exam: Positive for: pedal edema, tenderness. Negative for: normal inspection, pedal pulses present Additional comments: left grater than right ischemic changes lower legs with ulcers - Back Exam Back exam: absent: CVA tenderness (L), CVA tenderness (R) - Neurological Exam Neurological exam: Alert, CN II-XII Intact, Oriented x3, Reflexes Normal - Psychiatric Exam Psychiatric exam: Depressed - Skin Skin Exam: Dry, Intact Results - Vital Signs Recent Vital Signs: Last Vital Signs Temp 98.0 F 08/23/18 18:02 Pulse 85 08/23/18 18:02 Resp 20 08/23/18 18:02 BP 130/63 08/23/18 18:02 Pulse Ox 100 08/23/18 18:02 - Labs Result Diagrams: 08/23/18 13:10 08/23/18 13:51 Labs: Laboratory Results - last 24 hr 08/23/18 08/23/18 08/23/18 13:10 13:10 13:51 WBC 9.3 RBC 3.43 L Hgb 11.8 L D Hct 35.7 MCV 104.0 H D MCH 34.5 H MCHC 33.2 RDW 17.2 H Plt Count 214 MPV 9.7 Neut % (Auto) 82.3 H Lymph % (Auto) 8.4 L [place] % (Auto) 8.0 Eos % (Auto) 0.7 Baso % (Auto) 0.6 Neut # (Auto) 7.6 H Lymph # (Auto) 0.8 L [place] # (Auto) 0.7 Eos # (Auto) 0.1 Baso # (Auto) 0.1 Neutrophils % (Manual) 83 H Band Neutrophils % 1 Lymphocytes % (Manual) 7 L Monocytes % (Manual) 8 Eosinophils % (Manual) 1 Platelet Estimate Normal Anisocytosis (manual) Slight PT 12.8 H INR 1.2 APTT 34.0 Sodium 132 Potassium 4.8 Chloride 97 L Carbon Dioxide 26 Anion Gap 14 BUN 54 H Creatinine 4.6 H Est GFR ( Amer) 15 Est GFR (Non-Af Amer) 13 POC Glucose (mg/dL) Random Glucose 128 H Calcium 7.7 L Total Bilirubin 1.1 AST 57 ALT 7 L D Alkaline Phosphatase 126 D Total Protein 7.9 Albumin 2.9 L D Globulin 5.0 H Albumin/Globulin Ratio 0.6 L 08/23/18 21:28 WBC RBC Hgb Hct MCV MCH MCHC RDW Plt Count MPV Neut % (Auto) Lymph % (Auto) [place] % (Auto) Eos % (Auto) Baso % (Auto) Neut # (Auto) Lymph # (Auto) [place] # (Auto) Eos # (Auto) Baso # (Auto) Neutrophils % (Manual) Band Neutrophils % Lymphocytes % (Manual) Monocytes % (Manual) Eosinophils % (Manual) Platelet Estimate Anisocytosis (manual) PT INR APTT Sodium Potassium Chloride Carbon Dioxide Anion Gap BUN Creatinine Est GFR ( Amer) Est GFR (Non-Af Amer) POC Glucose (mg/dL) 220 H Random Glucose Calcium Total Bilirubin AST ALT Alkaline Phosphatase Total Protein Albumin Globulin Albumin/Globulin Ratio Assessment & Plan (1) PVD (peripheral vascular disease) Status: Acute (2) Cellulitis of left lower leg Status: Acute (3) Infected ulcer of skin Status: Acute (4) Non-healing open wound of heel Status: Acute (5) ESRD on hemodialysis Status: Chronic - Assessment and Plan (Free Text) Assessment: possible impending gangrene cultures sent start IV antibiotics Dr Macias to [facility]
[2018-08-23] MEDS: (Lantus) Insulin Glargine, Recombinant SC SCH (22:08)
--- NOTE | 2018-08-23 23:09 | CP.PCM.HP ---
History of Present Illness - History of Present Illness History of Present Illness: 73 years old [place] male is sent to the ED at [facility] from a subacute rehabilitation center for worsening of ulcerations and cellulitis of the left lower leg. Known to have a PAD, an IDDM, a HPTN, an atrial fibrillation, an ESRD on hemodialysis, he was hospitalized in 05/2018 for a septic shock, MRSA bacteremia and ulceration of the left foot. He denies any cigarette smoking. Present on Admission - Present on Admission Any Indicators Present on Admission: Yes Decubitus Ulcer Present: Yes Decubitus Ulcer Location: sacral Decubitus Ulcer Stage: II Review of Systems - Constitutional Constitutional: Anorexia, Fatigue, Weight Loss, Weakness - Integumentary Integumentary: Non-Healing Lesions, Skin Ulcer Additional comments: Non-healing ulcers of the left lower leg. Past Patient History - Infectious Disease Hx of Infectious Diseases: None - Tetanus Immunizations Tetanus Immunization: Unknown - Past Medical History & Family History Past Medical History?: Yes - Past Social History Smoking Status: Never Smoked Alcohol: None Drugs: Denies Home Situation {Lives}: With Family Domestic Violence: Negative - CARDIAC Hx Cardia Arrhythmia: Yes (A FIB/FLUTTER) Hx Congestive Heart Failure: Yes Hx Hypercholesterolemia: Yes Hx Hypertension: Yes Hx Peripheral Vascular Disease: Yes - PULMONARY Hx Respiratory Disorders: No - NEUROLOGICAL Hx Neurological Disorder: No - HEENT Hx HEENT Problems: Yes Hx Cataracts: Yes (BILAT.) - RENAL Hx Chronic Kidney Disease: Yes Hx Dialysis: Yes Type of Dialysis Access: AV fistula Hx Renal Failure: Yes - ENDOCRINE/METABOLIC Hx Endocrine Disorders: Yes Hx Diabetes Mellitus Type 1: Yes - HEMATOLOGICAL/ONCOLOGICAL Hx Blood Disorders: Yes Hx Blood Transfusions: Yes - INTEGUMENTARY Hx Dermatological Problems: No - MUSCULOSKELETAL/RHEUMATOLOGICAL Hx Arthritis: Yes Hx Falls: Yes - GASTROINTESTINAL Hx Gastrointestinal Disorders: Yes Other/Comment: BLOOD IN STOOL - GENITOURINARY/GYNECOLOGICAL Hx Genitourinary Disorders: Yes Hx Hematuria: Yes Hx Prostate Problems: Yes Hx Urinary Tract Infection: Yes - PSYCHIATRIC Hx Substance Use: No - SURGICAL HISTORY Hx Surgeries: Yes Hx Arteriovenous Shunt: Yes (AV FISTULA RIGHT ARM) Hx Cataract Extraction: Yes (BILAT.) Hx Eye Surgery: Yes (LEFT EYE) Other/Comment: SKIN GRAFT LEFT FOOT - ANESTHESIA Hx Anesthesia: Yes Hx Anesthesia Reactions: No Hx Malignant Hyperthermia: No Meds Allergies/Adverse Reactions: Allergies Allergy/AdvReac Type Severity Reaction Status Date / Time No Known Allergies Allergy Verified 08/23/18 11:42 Physical Exam - Constitutional Appears: No Acute Distress, Cachectic, Chronically Ill - Head Exam Head Exam: NORMAL INSPECTION - Eye Exam Eye Exam: Normal appearance Pupil Exam: NORMAL ACCOMODATION - ENT Exam ENT Exam: Normal Exam - Neck Exam Neck exam: Positive for: Normal Inspection - Respiratory Exam Respiratory Exam: Clear to Auscultation Bilateral - Cardiovascular Exam Cardiovascular Exam: Irregular Rhythm - GI/Abdominal Exam GI & Abdominal Exam: Normal Bowel Sounds, Soft - Rectal Exam Rectal Exam: Deferred - Exam Exam: NORMAL INSPECTION - Extremities Exam Additional comments: Marked muscular wasting of both legs. Multiple ulcerations of the left lower leg. - Back Exam Back exam: NORMAL INSPECTION - Neurological Exam Neurological exam: Alert, Oriented x3 Additional comments: Patient is bed bound. - Psychiatric Exam Psychiatric exam: Anxious - Skin Additional comments: Multiple ulcerations of the left lower leg. Results - Vital Signs Recent Vital Signs: Last Vital Signs Temp 98.0 F 08/23/18 18:02 Pulse 85 08/23/18 18:02 Resp 20 08/23/18 18:02 BP 130/63 08/23/18 18:02 Pulse Ox 100 08/23/18 18:02 - Labs Result Diagrams: 08/23/18 13:10 08/23/18 13:51 Labs: Laboratory Results - last 24 hr 08/23/18 08/23/18 08/23/18 13:10 13:10 13:51 WBC 9.3 RBC 3.43 L Hgb 11.8 L D Hct 35.7 MCV 104.0 H D MCH 34.5 H MCHC 33.2 RDW 17.2 H Plt Count 214 MPV 9.7 Neut % (Auto) 82.3 H Lymph % (Auto) 8.4 L [place] % (Auto) 8.0 Eos % (Auto) 0.7 Baso % (Auto) 0.6 Neut # (Auto) 7.6 H Lymph # (Auto) 0.8 L [place] # (Auto) 0.7 Eos # (Auto) 0.1 Baso # (Auto) 0.1 Neutrophils % (Manual) 83 H Band Neutrophils % 1 Lymphocytes % (Manual) 7 L Monocytes % (Manual) 8 Eosinophils % (Manual) 1 Platelet Estimate Normal Anisocytosis (manual) Slight PT 12.8 H INR 1.2 APTT 34.0 Sodium 132 Potassium 4.8 Chloride 97 L Carbon Dioxide 26 Anion Gap 14 BUN 54 H Creatinine 4.6 H Est GFR ( Amer) 15 Est GFR (Non-Af Amer) 13 POC Glucose (mg/dL) Random Glucose 128 H Calcium 7.7 L Total Bilirubin 1.1 AST 57 ALT 7 L D Alkaline Phosphatase 126 D Total Protein 7.9 Albumin 2.9 L D Globulin 5.0 H Albumin/Globulin Ratio 0.6 L 08/23/18 21:28 WBC RBC Hgb Hct MCV MCH MCHC RDW Plt Count MPV Neut % (Auto) Lymph % (Auto) [place] % (Auto) Eos % (Auto) Baso % (Auto) Neut # (Auto) Lymph # (Auto) [place] # (Auto) Eos # (Auto) Baso # (Auto) Neutrophils % (Manual) Band Neutrophils % Lymphocytes % (Manual) Monocytes % (Manual) Eosinophils % (Manual) Platelet Estimate Anisocytosis (manual) PT INR APTT Sodium Potassium Chloride Carbon Dioxide Anion Gap BUN Creatinine Est GFR ( Amer) Est GFR (Non-Af Amer) POC Glucose (mg/dL) 220 H Random Glucose Calcium Total Bilirubin AST ALT Alkaline Phosphatase Total Protein Albumin Globulin Albumin/Globulin Ratio Assessment & Plan (1) Cellulitis of left lower leg Assessment and Plan: Blood and wound cultures. Start on IV Vancomycin as per DR Bailey. Status: Acute (2) PVD (peripheral vascular disease) Assessment and Plan: Patient evaluated by Dr Asencio. May need amputation of the left lower leg. Status: Chronic (3) ESRD on hemodialysis Assessment and Plan: HD as per Nephrologists Status: Chronic (4) Atrial fibrillation Assessment and Plan: Hold Eliquis for future surgeries.To start Heparin s/c instead. Status: Chronic (5) Insulin dependent diabetes mellitus Assessment and Plan: To continue Lantus and Novolog. Status: Chronic Decision To Admit - Pt Status Changed To: Hospital Disposition Of: Inpatient - Admit Certification Admit to Inpatient:: After my assessment, the patient will require hospitalization for at least two midnights. This is because of the severity of symptoms shown, intensity of services needed, and/or the medical risk in this patient being treated as an outpatient. - InPatient: Physician Admission Certification:: After my assessments, the patient requires hospitalization for at least 2 midnights. - . Bed Request Type: Regular Admitting Physician: Oz Watkins
[2018-08-24] MEDS: (Novolog) Insulin Aspart, Recombinant 100 u/ml 10 ml vial SC SCH ×4 (07:56→21:55)
[2018-08-24 08:07] LABS: BASO # 0.1 K/uL (0.0-0.2); BASO % 0.6 % (0.0-2.0); EOS # 0.3 K/uL (0.0-0.7); EOS % 3.1 % (0.0-4.0); HEMOGLOBIN 11.3 g/dL (12.0-18.0); LYMPH # 0.8 K/uL (1.0-4.3); LYMPH % 8.9 % (20.0-40.0); MEAN CELL VOLUME 105.3 fL (80.0-94.0); MEAN CORPUSCULAR HEMOGLOBIN 34.1 pg (27.0-31.0); MEAN CORPUSCULAR HGB CONC 32.3 g/dL (33.0-37.0); MEAN PLATELET VOLUME 9.2 fL (7.2-11.7); MONO # 0.7 K/uL (0.0-0.8); MONO % 7.4 % (0.0-10.0); NEUT # 7.2 K/uL (1.8-7.0); PLATELET COUNT 192 K/uL (130-400); RBC 3.32 Mil/uL (4.40-5.90); RED CELL DISTRIBUTION WIDTH 16.7 % (11.5-14.5)
[2018-08-24] MEDS: Multivitamin Vitamin B Complex (Nephro-Vite) Tab PO SCH (08:29)
[2018-08-24 08:30] LABS: ALB/GLOB RATIO 0.6 (1.0-2.1); ALBUMIN 2.9 g/dL (3.5-5.0); CALCIUM 8.3 mg/dl (8.6-10.4)
[2018-08-24 09:04] LABS: EOSINOPHIL 4 % (0-4); HYPOCHROMIC SLIGHT; LYMPHOCYTE 11 % (20-40); MONOCYTE 6 % (0-10); NEUTROPHIL 79 % (50-75); PLATELET ESTIMATE NORMAL (NORMAL); TOTAL CELLS COUNTED 100
--- NOTE | 2018-08-24 09:19 | CP.PCM.CON ---
History of Present Illness - History of Present Illness History of Present Illness: 73 M with PMH that includes PAD, DM, chronic CHF, HTN, ESRD on HD, chronic atrial fibrillation, ESRD- on dialysis TTS- presents to [facility] for worsening bilateral LE ulcerations. Patient seen and evaluated in the ED. Patient has chronic ulcers. He has been in rehab recently. He was last hospitalized in May -course noted for septic shock, MRSA bacteremia. Moises has been following with Dr. Macias and and admission advised for worsening left foot cellulitis/ulcers.. states that the wounds appear worst than it did last w [facility]. Dr. Macias advised patient and to get vascular work up for ulcers. Patient denies any pain to bilateral LE.. Denies Fever/chills, SOB, CP, abd pain, n/v/d, constipation, urinary symptoms, numbness/tingling. Has had poor appetite, unspecified weight loss, increasing lethargy. Last dialysis 08/22 PMH: PAD, CHF, DM, HTN, ESRD on HD, chronic atrial fibrillation, HLD PSH: AV fistula, cataract surgery, multiple wound debridements with skin grafts to left ankle and foot ulcers All: NKDA Review of Systems - Review of Systems All systems: reviewed and no additional remarkable complaints except (as per HPI) Social- no smoking, ETOH, illicit drug use FH- no CKD Review of Systems - Constitutional Constitutional: Lethargy, Weight Loss, Weakness - EENT Eyes: absent: As Per HPI, Blind Spots, Blurred Vision, Change in Vision, Decreased Night Vision, Diplopia, Discharge, Dry Eye, Exophthalmos, Floaters, Irritation, Itchy Eyes, Loss of Peripheral Vision, Pain, Photophobia, Requires Corrective Lenses, Sees Flashes, Spots in Vision, Tunnel Vision, Other Visual Disturbances, Loss of Vision, Other Ears: absent: As Per HPI, Decreased Hearing, Ear Discharge, Ear Pain, Tinnitus, Abnormal Hearing, Disequilibrium, Dizziness, Other Nose/Mouth/Throat: absent: As Per HPI, Epistaxis, Nasal Congestion, Nasal Discharge, Nasal Obstruction, Nasal Trauma, Nose Pain, Post Nasal Drip, Sinus Pain, Sinus Pressure, Bleeding Gums, Change in Voice, Dental Pain, Dry Mouth, Dysphagia, Halitosis, Hoarsness, Lip Swelling, Mouth Lesions, Mouth Pain, Odynophagia, Sore Throat, Throat Swelling, Tongue Swelling, Facial Pain, Neck Pain, Neck Mass, Other - Cardiovascular Cardiovascular: Dyspnea on Exertion - Respiratory Respiratory: Dyspnea on Exertion - Gastrointestinal Gastrointestinal: Early Satiety - Genitourinary Genitourinary: As Per HPI - Musculoskeletal Musculoskeletal: Muscle Weakness, Stiffness - Neurological Neurological: Weakness Past Patient History - Infectious Disease Hx of Infectious Diseases: None - Tetanus Immunizations Tetanus Immunization: Unknown - Past Medical History & Family History Past Medical History?: Yes - Past Social History Smoking Status: Never Smoked Alcohol: None Drugs: Denies Home Situation {Lives}: With Family Domestic Violence: Negative - CARDIAC Hx Cardia Arrhythmia: Yes (A FIB/FLUTTER) Hx Congestive Heart Failure: Yes Hx Hypercholesterolemia: Yes Hx Hypertension: Yes Hx Peripheral Vascular Disease: Yes - PULMONARY Hx Respiratory Disorders: No - NEUROLOGICAL Hx Neurological Disorder: No - HEENT Hx HEENT Problems: Yes Hx Cataracts: Yes (BILAT.) - RENAL Hx Chronic Kidney Disease: Yes Hx Dialysis: Yes Type of Dialysis Access: AV fistula Hx Renal Failure: Yes - ENDOCRINE/METABOLIC Hx Endocrine Disorders: Yes Hx Diabetes Mellitus Type 1: Yes - HEMATOLOGICAL/ONCOLOGICAL Hx Blood Disorders: Yes Hx Blood Transfusions: Yes - INTEGUMENTARY Hx Dermatological Problems: No - MUSCULOSKELETAL/RHEUMATOLOGICAL Hx Arthritis: Yes Hx Falls: Yes - GASTROINTESTINAL Hx Gastrointestinal Disorders: Yes Other/Comment: BLOOD IN STOOL - GENITOURINARY/GYNECOLOGICAL Hx Genitourinary Disorders: Yes Hx Hematuria: Yes Hx Prostate Problems: Yes Hx Urinary Tract Infection: Yes - PSYCHIATRIC Hx Substance Use: No - SURGICAL HISTORY Hx Surgeries: Yes Hx Arteriovenous Shunt: Yes (AV FISTULA RIGHT ARM) Hx Cataract Extraction: Yes (BILAT.) Hx Eye Surgery: Yes (LEFT EYE) Other/Comment: SKIN GRAFT LEFT FOOT - ANESTHESIA Hx Anesthesia: Yes Hx Anesthesia Reactions: No Hx Malignant Hyperthermia: No Meds Allergies/Adverse Reactions: Allergies Allergy/AdvReac Type Severity Reaction Status Date / Time No Known Allergies Allergy Verified 08/23/18 11:42 - Medications Medications: Current Medications Acetaminophen (Tylenol 325mg Tab) 325 mg PO Q6 PRN PRN Reason: Pain, Mild (1-3) Amlodipine Besylate (Norvasc) 5 mg PO DAILY [facility] Heparin Sodium (Porcine) (Heparin) 5,000 units SC Q8 [facility] Last Admin: 08/24/18 06:05 Dose: 5,000 units Vancomycin HCl 1 gm/ Sodium (Chloride) 250 mls @ 166.7 mls/hr IVPB MWF [facility]; Protocol Cefepime HCl 1 gm/ Dextrose 50 mls @ 100 mls/hr IVPB Q24H [facility]; Protocol Last Admin: 08/23/18 22:09 Dose: 100 mls/hr Insulin Aspart (Novolog) 0 unit SC ACHS [facility]; Protocol Last Admin: 08/24/18 07:56 Dose: Not Given Insulin Glargine (Lantus) 16 unit SC [facility] Last Admin: 08/23/18 22:08 Dose: 16 unit Rosuvastatin Calcium (Crestor) 5 mg PO HS [facility] Last Admin: 08/23/18 22:09 Dose: 5 mg Sevelamer Carbonate (Renvela) 800 mg PO TIDCC [facility] Last Admin: 08/24/18 08:29 Dose: 800 mg Tamsulosin HCl (Flomax) 0.4 mg PO DAILY [facility] Vitamin B Complex/Vit C/Folic Acid (Nephro-Amita) 1 tab PO 0800 [facility] Last Admin: 08/24/18 08:29 Dose: 1 tab Physical Exam - Constitutional Appears: Cachectic, Chronically Ill - Head Exam Head Exam: ATRAUMATIC, NORMAL INSPECTION - Eye Exam Eye Exam: EOMI, Normal appearance - Neck Exam Neck exam: Positive for: Normal Inspection. Negative for: Tenderness - Respiratory Exam Respiratory Exam: Rhonchi, NORMAL BREATHING PATTERN - Cardiovascular Exam Cardiovascular Exam: Irregular Rhythm - GI/Abdominal Exam GI & Abdominal Exam: Distended, Soft - Extremities Exam Extremities exam: Positive for: pedal pulses present. Negative for: tenderness - Neurological Exam Neurological exam: Altered, CN II-XII Intact - Skin Skin Exam: Pallor Results - Vital Signs Recent Vital Signs: Last Vital Signs Temp 97.5 F L 08/23/18 23:36 Pulse 84 08/23/18 23:36 Resp 20 08/23/18 23:36 BP 121/63 08/23/18 23:36 Pulse Ox 99 08/23/18 23:36 - Labs Result Diagrams: 08/24/18 07:59 08/24/18 07:59 Labs: Laboratory Results - last 24 hr 08/23/18 08/23/18 08/23/18 13:10 13:10 13:51 WBC 9.3 RBC 3.43 L Hgb 11.8 L D Hct 35.7 MCV 104.0 H D MCH 34.5 H MCHC 33.2 RDW 17.2 H Plt Count 214 MPV 9.7 Neut % (Auto) 82.3 H Lymph % (Auto) 8.4 L Jackson % (Auto) 8.0 Eos % (Auto) 0.7 Baso % (Auto) 0.6 Neut # (Auto) 7.6 H Lymph # (Auto) 0.8 L Jackson # (Auto) 0.7 Eos # (Auto) 0.1 Baso # (Auto) 0.1 Neutrophils % (Manual) 83 H Band Neutrophils % 1 Lymphocytes % (Manual) 7 L Monocytes % (Manual) 8 Eosinophils % (Manual) 1 Platelet Estimate Normal Hypochromasia (manual) Anisocytosis (manual) Slight PT 12.8 H INR 1.2 APTT 34.0 Sodium 132 Potassium 4.8 Chloride 97 L Carbon Dioxide 26 Anion Gap 14 BUN 54 H Creatinine 4.6 H Est GFR ( Amer) 15 Est GFR (Non-Af Amer) 13 POC Glucose (mg/dL) Random Glucose 128 H Calcium 7.7 L Phosphorus Magnesium Total Bilirubin 1.1 AST 57 ALT 7 L D Alkaline Phosphatase 126 D Total Protein 7.9 Albumin 2.9 L D Globulin 5.0 H Albumin/Globulin Ratio 0.6 L 08/23/18 08/24/18 08/24/18 21:28 07:03 07:05 WBC RBC Hgb Hct MCV MCH MCHC RDW Plt Count MPV Neut % (Auto) Lymph % (Auto) Jackson % (Auto) Eos % (Auto) Baso % (Auto) Neut # (Auto) Lymph # (Auto) Jackson # (Auto) Eos # (Auto) Baso # (Auto) Neutrophils % (Manual) Band Neutrophils % Lymphocytes % (Manual) Monocytes % (Manual) Eosinophils % (Manual) Platelet Estimate Hypochromasia (manual) Anisocytosis (manual) PT INR APTT Sodium Potassium Chloride Carbon Dioxide Anion Gap BUN Creatinine Est GFR ( Amer) Est GFR (Non-Af Amer) POC Glucose (mg/dL) 220 H 65 64 L Random Glucose Calcium Phosphorus Magnesium Total Bilirubin AST ALT Alkaline Phosphatase Total Protein Albumin Globulin Albumin/Globulin Ratio 08/24/18 08/24/18 08/24/18 07:26 07:51 07:59 WBC 9.0 RBC 3.32 L Hgb 11.3 L Hct 34.9 L MCV 105.3 H MCH 34.1 H MCHC 32.3 L RDW 16.7 H Plt Count 192 MPV 9.2 Neut % (Auto) 80.0 H Lymph % (Auto) 8.9 L Jackson % (Auto) 7.4 Eos % (Auto) 3.1 Baso % (Auto) 0.6 Neut # (Auto) 7.2 H Lymph # (Auto) 0.8 L Jackson # (Auto) 0.7 Eos # (Auto) 0.3 Baso # (Auto) 0.1 Neutrophils % (Manual) 79 H Band Neutrophils % Lymphocytes % (Manual) 11 L Monocytes % (Manual) 6 Eosinophils % (Manual) 4 Platelet Estimate Normal Hypochromasia (manual) Slight Anisocytosis (manual) PT INR APTT Sodium Potassium Chloride Carbon Dioxide Anion Gap BUN Creatinine Est GFR ( Amer) Est GFR (Non-Af Amer) POC Glucose (mg/dL) 67 98 Random Glucose Calcium Phosphorus Magnesium Total Bilirubin AST ALT Alkaline Phosphatase Total Protein Albumin Globulin Albumin/Globulin Ratio 08/24/18 07:59 WBC RBC Hgb Hct MCV MCH MCHC RDW Plt Count MPV Neut % (Auto) Lymph % (Auto) Jackson % (Auto) Eos % (Auto) Baso % (Auto) Neut # (Auto) Lymph # (Auto) Jackson # (Auto) Eos # (Auto) Baso # (Auto) Neutrophils % (Manual) Band Neutrophils % Lymphocytes % (Manual) Monocytes % (Manual) Eosinophils % (Manual) Platelet Estimate Hypochromasia (manual) Anisocytosis (manual) PT INR APTT Sodium 136 Potassium 4.4 Chloride 96 L Carbon Dioxide 28 Anion Gap 16 BUN 61 H Creatinine 5.9 H Est GFR ( Amer) 11 Est GFR (Non-Af Amer) 9 POC Glucose (mg/dL) Random Glucose 58 L D Calcium 8.3 L Phosphorus 6.2 H Magnesium 2.3 Total Bilirubin 0.9 AST 34 ALT 11 L D Alkaline Phosphatase 129 H Total Protein 7.8 Albumin 2.9 L Globulin 4.9 H Albumin/Globulin Ratio 0.6 L Assessment & Plan (1) PAD (peripheral artery disease) Status: Acute (2) Type 2 diabetes mellitus with diabetic nephropathy Status: Acute (3) Atrial fibrillation Status: Acute (4) Cardiomyopathy Status: Acute (5) Cellulitis of left lower leg Status: Acute (6) ESRD on hemodialysis Status: Chronic - Assessment and Plan (Free Text) Plan: Surgical eval Left LE- ? need for amputation afib treatment IV ABs wound care dialysis today and TTS
[2018-08-24 09:47] LABS: FREE T4 1.6 ng/dL (0.78-2.19)
[2018-08-24] MEDS ORDERED: Iodixanol 320 mg/ml 150 ml Bottle IV ONE (09:59)
--- NOTE | 2018-08-24 13:06 | CT ---
Date of service: 08/24/2018 PROCEDURE: CT Angiography Abdomen, Pelvis and Lower Extremity with Contrast HISTORY: peripheral artery disease COMPARISON: 05/05/2018 TECHNIQUE: Technique: CT angiography of the abdomen, pelvis and bilateral lower extremities performed in the arterial phase of enhancement. Coronal and sagittal reformats, and well as rotating MIP images of the vessels generated at the workstation. Intravenous contrast dose: 100 mL of Visipaque 320 4 cc/second, 20 gauge left upper arm IV Radiation dose: Total exam DLP = 1780.09 mGy-cm. This CT exam was performed using one or more of the following dose reduction techniques: Automated exposure control, adjustment of the mA and/or kV according to patient size, and/or use of iterative reconstruction technique. FINDINGS: CT ANGIOGRAPHY: Mild scattered calcified and noncalcified plaque seen throughout the abdominal aorta and its main branches. ABDOMINAL AORTA:: No aneurysmal dilatation of the visualized abdominal aorta. Tortuous descending abdominal aorta. MAJOR AORTIC BRANCHES: Celiac Ringle: Patent with moderate stenosis of the origin due to calcified and noncalcified plaque. Superior mesenteric artery: Patent. With moderate stenosis of the origin due to calcified and noncalcified plaque. Inferior mesenteric artery: Diminutive in caliber. Associated calcific plaque. Renal arteries: Left renal artery is widely patent with associated calcific plaque. It is diminutive caliber of the right renal artery with extensive stenosis of the origin. PELVIC ARTERIES: Right Common Iliac: Patent with minimal calcific plaque. Right External Iliac: Unremarkable. Right Internal Iliac: Patent mild calcific and noncalcific plaque without significant narrowing in the proximal segment. Left Common Iliac: Patent with mild to moderate calcific and noncalcific plaque with minimal narrowing of the proximal segment. Left External Iliac: Unremarkable. Left Internal Iliac: Patent with calcific and noncalcific plaque. RIGHT LOWER EXTREMITY ARTERIES: Right Common Femoral: Patent with calcific plaque resulting in minimal narrowing of the lumen. Right Superficial Femoral: Patent throughout its course with multifocal areas of [id number] narrowing due to calcific and noncalcific plaque. Focal segment of severe narrowing in the distal segment with calcific and noncalcific plaque. Right Profunda Femoris: Patent with multifocal areas of calcific and noncalcific plaque. Right Popliteal:Patent with multifocal areas calcific and noncalcific plaque resulting in mild to moderate multifocal areas of narrowing. Right Anterior Tibial: Patent Right Tibioperoneal Trunk: Patent with calcific plaque. Right Posterior Tibial: Patent with multifocal calcific plaque. Right Peroneal: Patent with multifocal calcific plaque. Right dorsalis pedis : Patent. LEFT LOWER EXTREMITY ARTERIES: Left Common Femoral: Patent with calcific plaque. Left Superficial Femoral: Patent throughout its course with multifocal areas of calcific and noncalcific plaque resulting in [id number] narrowing. Short segment area of severe narrowing due to calcific and noncalcific plaque in the distal 1/3 segment. Left Profunda Femoris: Patent with calcific and noncalcific plaque. Left Popliteal: Patent with calcific and noncalcific plaque resulting in mild multifocal areas of narrowing. Left Anterior Tibial: Patent throughout its course. Left Tibioperoneal Trunk: Patent. Left Posterior Tibial: Occluded proximally however, there is distal reconstitution above the level of the ankle. Left Peroneal: Patent. Left Dorsalis pedis: Patent. NON-ANGIOGRAPHIC ASPECT OF THE EXAM: LOWER THORAX: There are bilateral moderate size pleural effusions with associated compressive atelectasis and/or pneumonia. LIVER: The liver contour is irregular. No definite enhancing liver lesion identified. GALLBLADDER AND BILE DUCTS: Unremarkable. PANCREAS: The pancreas enhances homogeneously. There is minimal prominence of the main pancreatic duct. This has remained essentially unchanged since the prior CT from 05/05/2018. SPLEEN: Unremarkable. ADRENALS: Unremarkable. No mass. KIDNEYS AND URETERS: Kidneys are symmetric. The ureters are not definitively identified. STOMACH AND BOWEL: Lack of oral contrast limits evaluation of bowel. No bowel obstruction. The distal colon is relatively collapsed. This further limits evaluation. Small hiatal hernia. APPENDIX: Not seen. PERITONEUM: Moderate to severe ascites. LYMPH NODES: No significantly enlarged lymph nodes identified. Please note that presence of ascites mainly to suboptimal evaluation of lymph nodes. BLADDER: Collapsed. REPRODUCTIVE: The prostate is not enlarged. BONES: Severe osteopenia. No acute fracture. OTHER FINDINGS: Vascular stent in the right upper arm. IMPRESSION: No abdominal aortic aneurysm. Scattered atherosclerotic plaque throughout the abdominal aorta and its main branches. 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 Diminutive caliber of the right renal artery. Right lower extremity: Scattered calcific and noncalcific plaque in the common femoral and superficial femoral arteries with area of focal severe stenosis due in the distal 1/3 segment of the superficial femoral artery. Patent popliteal artery and below-knee arteries. Left lower extremity: Scattered calcific and noncalcific plaque in the common femoral and superficial femoral arteries with short segment area of severe stenosis in the distal 1/3 segment. Patent popliteal artery. Moderate segment stenosis of the proximal posterior tibial artery, stable with distal reconstitution to the level of the ankle. Patent peroneal and anterior tibial arteries with scattered calcific plaque. Non angiographic evaluation: Bilateral moderate-sized pleural effusions with associated from compressive atelectasis and/or pneumonia. Moderate to severe ascites. Anasarca Other findings as above.
--- NOTE | 2018-08-24 13:50 | CP.PCM.PN ---
Subjective - Date & Time of Evaluation Date of Evaluation: 08/24/18 Time of Evaluation: 13:47 - Subjective Subjective: Podiatry Progress Note: Dr. Cavanaugh 73 year old male was seen and evaluated at bedside for worsening bilateral LE ulcerations (L>R). At the time of the visit, patient is sleeping and appears in NAD. As per nursing, no acute overnight events. Objective - Vital Signs/Intake and Output Vital Signs (last 24 hours): Temp Pulse Resp BP Pulse Ox 97.5 F L 84 20 121/63 99 08/23/18 23:36 08/23/18 23:36 08/23/18 23:36 08/23/18 23:36 08/23/18 23:36 Intake and Output: 08/24/18 08/24/18 06:59 18:59 Intake Total 80 Balance 80 - Medications Medications: Current Medications Acetaminophen (Tylenol 325mg Tab) 325 mg PO Q6 PRN PRN Reason: Pain, Mild (1-3) Amlodipine Besylate (Norvasc) 5 mg PO DAILY [facility] Last Admin: 08/24/18 10:21 Dose: 5 mg Heparin Sodium (Porcine) (Heparin) 5,000 units SC Q8 [facility] Last Admin: 08/24/18 06:05 Dose: 5,000 units Vancomycin HCl 1 gm/ Sodium (Chloride) 250 mls @ 166.7 mls/hr IVPB MWF [facility]; Protocol Cefepime HCl 1 gm/ Dextrose 50 mls @ 100 mls/hr IVPB Q24H [facility]; Protocol Last Admin: 08/23/18 22:09 Dose: 100 mls/hr Insulin Aspart (Novolog) 0 unit SC A[facility]S [facility]; Protocol Last Admin: 08/24/18 11:19 Dose: Not Given Insulin Glargine (Lantus) 16 unit SC HS [facility] Last Admin: 08/23/18 22:08 Dose: 16 unit Rosuvastatin Calcium (Crestor) 5 mg PO HS [facility] Last Admin: 08/23/18 22:09 Dose: 5 mg Sevelamer Carbonate (Renvela) 800 mg PO TIDCC [facility] Last Admin: 08/24/18 11:51 Dose: 800 mg Tamsulosin HCl (Flomax) 0.4 mg PO DAILY [facility] Last Admin: 08/24/18 10:19 Dose: 0.4 mg Vitamin B Complex/Vit C/Folic Acid (Nephro-Amita) 1 tab PO 0800 [facility] Last Admin: 08/24/18 08:29 Dose: 1 tab - Labs Labs: 08/24/18 07:59 08/24/18 07:59 PT 12.8 SECONDS (9.7-12.2) H 08/23/18 13:10 INR 1.2 08/23/18 13:10 APTT 34.0 SECONDS (21-34) 08/23/18 13:10 - Constitutional Appears: Well, Non-toxic, No Acute Distress - Extremities Exam Additional comments: Lower extremity focused exam: VASC: DP/PT pulses are non-palpable at this time. Temperature gradient warm to cool from proximal to distal on the left but warm to warm on the right. CFT slightly delayed, > 3 sec to all digits on the left and approx 3 sec to the right; diffuse non-pitting edema noted to the distal left LE grossly DERM: healed ulceration noted to left lateral midfoot with overlying hyperkeratotic tissue. Stage 2 pressure ulceration to left heel with thin f ragile erythematous skin with no break in skin noted; Right mid leg wound measuring approx 2.5 cm x 2.0 cm with approx 80 percent fibrosis and 20 percent grannular base, no purulence, slight malodor; LLE clinically appears worst than RLE NEURO: Protective sensation slightly diminished ORTHO: No tenderness to palpation of left lower extremity ulcerations - Psychiatric Exam Psychiatric exam: Normal Affect, Normal Mood Assessment and Plan - Assessment and Plan (Free Text) Assessment: 73 year old male evaluated for worsening multiple bilateral LE ulcerations (L>R) Plan: Patient seen and evaluated Discussed plan with Dr. Cavanaugh VSS, no leukocytosis Ankle and Tib-Fib x-rays: No soft tissue emphysema, no acute changes Dressing to bilateral LE using xerofrom, ABD, DSD Wound cultures: G+ cocci ID consult, IV abx as per ID Vascular consult, Dr. Macias No plans for surgical intervention from podiatry standpoint at this time Will continue with local wound care Podiatry will continue to monitor patient while in-house
[2018-08-24] MEDS: Vancomycin 1 gm/NS 200 ml 1 GM/200 ML BAG IVPB SCH ×2 (14:45→19:30)
--- NOTE | 2018-08-24 17:54 | CP.PCM.PN ---
Subjective - Date & Time of Evaluation Date of Evaluation: 08/24/18 Time of Evaluation: 08:00 - Subjective Subjective: wound and blood gram + cocci IV rx in progress Objective - Vital Signs/Intake and Output Vital Signs (last 24 hours): Temp Pulse Resp BP Pulse Ox 98.2 F 83 16 105/54 L 98 08/24/18 17:30 08/24/18 17:30 08/24/18 17:30 08/24/18 17:30 08/24/18 17:30 Intake and Output: 08/24/18 08/24/18 06:59 18:59 Intake Total 80 Balance 80 - Medications Medications: Current Medications Acetaminophen (Tylenol 325mg Tab) 325 mg PO Q6 PRN PRN Reason: Pain, Mild (1-3) Amlodipine Besylate (Norvasc) 5 mg PO DAILY [facility] Last Admin: 08/24/18 10:21 Dose: 5 mg Heparin Sodium (Porcine) (Heparin) 5,000 units SC Q8 [facility] Last Admin: 08/24/18 14:14 Dose: Not Given Cefepime HCl 1 gm/ Dextrose 50 mls @ 100 mls/hr IVPB Q24H [facility]; Protocol Last Admin: 08/23/18 22:09 Dose: 100 mls/hr Vancomycin/Sodium Chloride (Vancomycin 1 Gm/Ns 200 Ml) 1 gm in 200 mls @ 133.333 mls/hr IVPB [facility]; Protocol Last Admin: 08/24/18 14:45 Dose: Not Given Insulin Aspart (Novolog) 0 unit SC ACHS [facility]; Protocol Last Admin: 08/24/18 11:19 Dose: Not Given Insulin Glargine (Lantus) 16 unit SC HS [facility] Last Admin: 08/23/18 22:08 Dose: 16 unit Rosuvastatin Calcium (Crestor) 5 mg PO HS [facility] Last Admin: 08/23/18 22:09 Dose: 5 mg Sevelamer Carbonate (Renvela) 800 mg PO TIDCC [facility] Last Admin: 08/24/18 11:51 Dose: 800 mg Tamsulosin HCl (Flomax) 0.4 mg PO DAILY [facility] Last Admin: 08/24/18 10:19 Dose: 0.4 mg Vitamin B Complex/Vit C/Folic Acid (Nephro-Amita) 1 tab PO 0800 [facility] Last Admin: 08/24/18 08:29 Dose: 1 tab - Labs Labs: 08/24/18 07:59 08/24/18 07:59 PT 12.8 SECONDS (9.7-12.2) H 08/23/18 13:10 INR 1.2 08/23/18 13:10 APTT 34.0 SECONDS (21-34) 08/23/18 13:10 - Constitutional Appears: Cachectic, Chronically Ill - Head Exam Head Exam: ATRAUMATIC, NORMAL INSPECTION, NORMOCEPHALIC - Eye Exam Eye Exam: EOMI, Normal appearance, PERRL Pupil Exam: NORMAL ACCOMODATION, PERRL - ENT Exam ENT Exam: Mucous Membranes Moist, Normal Exam - Neck Exam Neck Exam: Full ROM, Normal Inspection. absent: Lymphadenopathy - Respiratory Exam Respiratory Exam: Clear to Ausculation Bilateral, NORMAL BREATHING PATTERN - Cardiovascular Exam Cardiovascular Exam: REGULAR RHYTHM, +S1, +S2. absent: Murmur - GI/Abdominal Exam GI & Abdominal Exam: Soft, Normal Bowel Sounds. absent: Tenderness - Rectal Exam Rectal Exam: Deferred - Exam Exam: NORMAL INSPECTION - Extremities Exam Extremities Exam: Full ROM, Normal Capillary Refill, Normal Inspection. absent: Joint Swelling, Pedal Edema - Back Exam Back Exam: NORMAL INSPECTION - Neurological Exam Neurological Exam: Alert, Awake, CN II-XII Intact, Normal Gait, Oriented x3 - Psychiatric Exam Psychiatric exam: Normal Affect, Normal Mood - Skin Skin Exam: Dry, Erythema. absent: Intact, Normal Color, Warm Additional comments: dusky ulcerated left leg Assessment and Plan (1) PVD (peripheral vascular disease) Status: Chronic (2) Cellulitis of left lower leg Status: Acute (3) Infected ulcer of skin Status: Acute (4) Non-healing open wound of heel Status: Acute (5) ESRD on hemodialysis Status: Chronic - Assessment and Plan (Free Text) Assessment: severe sepsis - MRSA + cellulitis left leg Dr Kendall to eval IV rx ordered wound care in progress
--- NOTE | 2018-08-24 19:46 | CARD ---
APPROVED REPORT Date of service: 08/23/2018 EKG Measurement Heart [id number] <Conclusion> Atrial fibrillation Low voltage QRS T wave abnormality, consider anterior ischemia Abnormal ECG
[2018-08-24] MEDS: (Lantus) Insulin Glargine, Recombinant SC SCH (22:35)
[2018-08-25] MEDS: (Novolog) Insulin Aspart, Recombinant 100 u/ml 10 ml vial SC SCH ×4 (07:20→21:27)
[2018-08-25] MEDS: Multivitamin Vitamin B Complex (Nephro-Vite) Tab PO SCH (07:51)
--- NOTE | 2018-08-25 11:14 | VASCLAB ---
Date of service: 08/25/2018 STUDY DESCRIPTION: Lower Extremity Arterial Exam (PVR), HISTORY: PAD Post Limb revascularization(angioplasty) PRIORS: None. TECHNIQUE: Pulse volume recording waveforms and segmental pressures of bilateral lower extremities at multiple levels were obtained. Ankle Brachial Indices (ABIs) were calculated. Report prepared by Cory Bai RVT RIGHT LOWER EXTREMITY: * Brachial artery: Pressure - AVF mmHg. * High thigh: Pressure - mmHg: Ratio - : PVR waveform - Pulsatile * Low thigh: Pressure - mmHg: Ratio - PVR waveform: Pulsatile * Calf: Pressure - mmHg: Ratio - PVR waveform: Pulsatile * Posterior tibial Artery: Pressure - 220 mmHg: Ratio - 2.18 PVR waveform: Pulsatile * Dorsalis pedis Artery: Pressure - 216 mmHg: Ratio - 2.14 PVR waveform: Pulsatile * Great toe: Pressure - 69 mmHg: Ratio - 0.68 PVR waveform: Reduced Ankle brachial index (FARRUKH): 2.18 LEFT LOWER EXTREMITY: * Brachial artery: Pressure - 101 mmHg. 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 There was medial arterial calcification with artifactually elevated FARRUKH. TBI 0.69 Left: There was moderate infrapopliteal(tibio-peroneal arterial occlusive disease noted In the left lower extremity. There was medial arterial calcification with artifactually elevated FARRUKH. TBI 0.47
--- NOTE | 2018-08-25 13:39 | CP.PCM.PN ---
Subjective - Date & Time of Evaluation Date of Evaluation: 08/25/18 Time of Evaluation: 13:37 - Subjective Subjective: s/p dialysis 08/24- UF 1500ml more awake now same debilitation discussed with podiatry- likely will need left BKA possible right amputation in future on rx for MRSA wound Objective - Vital Signs/Intake and Output Vital Signs (last 24 hours): Temp Pulse Resp BP Pulse Ox 97.9 F 81 20 107/71 98 08/25/18 08:49 08/25/18 08:49 08/25/18 08:49 08/25/18 08:49 08/25/18 08:49 Intake and Output: 08/25/18 08/25/18 06:59 18:59 Intake Total 250 Balance 250 - Medications Medications: Current Medications Acetaminophen (Tylenol 325mg Tab) 325 mg PO Q6 PRN PRN Reason: Pain, Mild (1-3) Amlodipine Besylate (Norvasc) 5 mg PO DAILY [facility] Last Admin: 08/25/18 09:34 Dose: 5 mg Heparin Sodium (Porcine) (Heparin) 5,000 units SC Q8 [facility] Last Admin: 08/25/18 13:32 Dose: 5,000 units Cefepime HCl 1 gm/ Dextrose 50 mls @ 100 mls/hr IVPB Q24H [facility]; Protocol Last Admin: 08/24/18 21:27 Dose: 100 mls/hr Vancomycin/Sodium Chloride (Vancomycin 1 Gm/Ns 200 Ml) 1 gm in 200 mls @ 133.333 mls/hr IVPB TTS DON; Protocol Last Admin: 08/24/18 19:30 Dose: 133.333 mls/hr Insulin Aspart (Novolog) 0 unit SC ACHS [facility]; Protocol Last Admin: 08/25/18 11:54 Dose: 1 unit Insulin Glargine (Lantus) 16 unit SC HS [facility] Last Admin: 08/24/18 22:35 Dose: 16 unit Rosuvastatin Calcium (Crestor) 5 mg PO HS [facility] Last Admin: 08/24/18 21:29 Dose: 5 mg Sevelamer Carbonate (Renvela) 800 mg PO TIDCC [facility] Last Admin: 08/25/18 11:57 Dose: 800 mg Tamsulosin HCl (Flomax) 0.4 mg PO DAILY [facility] Last Admin: 08/25/18 09:34 Dose: 0.4 mg Vitamin B Complex/Vit C/Folic Acid (Nephro-Amita) 1 tab PO 0800 [facility] Last Admin: 08/25/18 07:51 Dose: 1 tab - Labs Labs: 08/24/18 07:59 08/24/18 07:59 PT 12.8 SECONDS (9.7-12.2) H 08/23/18 13:10 INR 1.2 08/23/18 13:10 APTT 34.0 SECONDS (21-34) 08/23/18 13:10 - Constitutional Appears: No Acute Distress, Cachectic, Chronically Ill - Head Exam Head Exam: ATRAUMATIC, NORMAL INSPECTION - Eye Exam Eye Exam: EOMI, Normal appearance - Neck Exam Neck Exam: Normal Inspection. absent: Tenderness - Respiratory Exam Respiratory Exam: Clear to Ausculation Bilateral, NORMAL BREATHING PATTERN - Cardiovascular Exam Cardiovascular Exam: Irregular Rhythm, +S1 - GI/Abdominal Exam GI & Abdominal Exam: Soft. absent: Tenderness - Extremities Exam Extremities Exam: Calf Tenderness. absent: Tenderness - Neurological Exam Neurological Exam: Awake, CN II-XII Intact - Skin Skin Exam: Dry, Warm Assessment and Plan (1) PAD (peripheral artery disease) Status: Acute (2) Type 2 diabetes mellitus with diabetic nephropathy Status: Acute (3) Atrial fibrillation Status: Acute (4) Cardiomyopathy Status: Acute (5) Cellulitis of left lower leg Status: Acute (6) ESRD on hemodialysis Status: Chronic - Assessment and Plan (Free Text) Plan: wound care IV ABs as per ID dialysis TTS
--- NOTE | 2018-08-25 14:20 | CP.PCM.PN ---
Subjective - Date & Time of Evaluation Date of Evaluation: 08/25/18 Time of Evaluation: 14:18 - Subjective Subjective: Podiatry Progress Note: Dr. Cavanaugh 73 year old male was seen and evaluated with attending Dr. Cavanaugh at bedside for worsening bilateral LE ulcerations (L>R). At the time of the visit, patient is sleeping and appears in NAD. As per nursing, no acute overnight events. Objective - Vital Signs/Intake and Output Vital Signs (last 24 hours): Temp Pulse Resp BP Pulse Ox 97.9 F 81 20 107/71 98 08/25/18 08:49 08/25/18 08:49 08/25/18 08:49 08/25/18 08:49 08/25/18 08:49 Intake and Output: 08/25/18 08/25/18 06:59 18:59 Intake Total 250 Balance 250 - Medications Medications: Current Medications Acetaminophen (Tylenol 325mg Tab) 325 mg PO Q6 PRN PRN Reason: Pain, Mild (1-3) Amlodipine Besylate (Norvasc) 5 mg PO DAILY [facility] Last Admin: 08/25/18 09:34 Dose: 5 mg Heparin Sodium (Porcine) (Heparin) 5,000 units SC Q8 [facility] Last Admin: 08/25/18 13:32 Dose: 5,000 units Cefepime HCl 1 gm/ Dextrose 50 mls @ 100 mls/hr IVPB Q24H [facility]; Protocol Last Admin: 08/24/18 21:27 Dose: 100 mls/hr Vancomycin/Sodium Chloride (Vancomycin 1 Gm/Ns 200 Ml) 1 gm in 200 mls @ 13 3.333 mls/hr IVPB TTS DON; Protocol Last Admin: 08/24/18 19:30 Dose: 133.333 mls/hr Insulin Aspart (Novolog) 0 unit SC ACHS [facility]; Protocol Last Admin: 08/25/18 11:54 Dose: 1 unit Insulin Glargine (Lantus) 16 unit SC HS [facility] Last Admin: 08/24/18 22:35 Dose: 16 unit Rosuvastatin Calcium (Crestor) 5 mg PO HS [facility] Last Admin: 08/24/18 21:29 Dose: 5 mg Sevelamer Carbonate (Renvela) 800 mg PO TIDCC [facility] Last Admin: 08/25/18 11:57 Dose: 800 mg Tamsulosin HCl (Flomax) 0.4 mg PO DAILY [facility] Last Admin: 08/25/18 09:34 Dose: 0.4 mg Vitamin B Complex/Vit C/Folic Acid (Nephro-Amita) 1 tab PO 0800 [facility] Last Admin: 08/25/18 07:51 Dose: 1 tab - Labs Labs: 08/24/18 07:59 08/24/18 07:59 PT 12.8 SECONDS (9.7-12.2) H 08/23/18 13:10 INR 1.2 08/23/18 13:10 APTT 34.0 SECONDS (21-34) 08/23/18 13:10 - Constitutional Appears: Well, Non-toxic, No Acute Distress - Extremities Exam Additional comments: Dressing to bilateral LE are clean, dry and intact - no strike through noted - Neurological Exam Neurological Exam: Alert, Awake, Oriented x3 - Psychiatric Exam Psychiatric exam: Normal Affect, Normal Mood Assessment and Plan - Assessment and Plan (Free Text) Assessment: 73 year old male evaluated for worsening multiple bilateral LE ulcerations (L>R) Plan: Patient seen and evaluated with Dr. Cavanaugh VSS, no leukocytosis Ankle and Tib-Fib x-rays: No soft tissue emphysema, no acute changes Dressing to bilateral LE using xerofrom, ABD, DSD Wound cultures: G+ cocci ID consult, IV abx as per ID Vascular consult, Dr. Macias No plans for surgical intervention from podiatry standpoint at this time Will continue with local wound care Podiatry will continue to monitor patient while in-house
--- NOTE | 2018-08-25 14:32 | CP.PCM.PN ---
Subjective - Date & Time of Evaluation Date of Evaluation: 08/25/18 Time of Evaluation: 09:00 - Subjective Subjective: seen and examined on rounds no new complaints KAREN rx in progress labs reviewed orders signed Objective - Vital Signs/Intake and Output Vital Signs (last 24 hours): Temp Pulse Resp BP Pulse Ox 97.9 F 81 20 107/71 98 08/25/18 08:49 08/25/18 08:49 08/25/18 08:49 08/25/18 08:49 08/25/18 08:49 Intake and Output: 08/25/18 08/25/18 06:59 18:59 Intake Total 250 Balance 250 - Medications Medications: Current Medications Acetaminophen (Tylenol 325mg Tab) 325 mg PO Q6 PRN PRN Reason: Pain, Mild (1-3) Amlodipine Besylate (Norvasc) 5 mg PO DAILY [facility] Last Admin: 08/25/18 09:34 Dose: 5 mg Heparin Sodium (Porcine) (Heparin) 5,000 units SC Q8 [facility] Last Admin: 08/25/18 13:32 Dose: 5,000 units Cefepime HCl 1 gm/ Dextrose 50 mls @ 100 mls/hr IVPB Q24H DON; Protocol Last Admin: 08/24/18 21:27 Dose: 100 mls/hr Vancomycin/Sodium Chloride (Vancomycin 1 Gm/Ns 200 Ml) 1 gm in 200 mls @ 133.333 mls/hr IVPB TTS DON; Protocol Last Admin: 08/24/18 19:30 Dose: 133.333 mls/hr Insulin Aspart (Novolog) 0 unit SC ACHS [facility]; Protocol Last Admin: 08/25/18 11:54 Dose: 1 unit Insulin Glargine (Lantus) 16 unit SC HS [facility] Last Admin: 08/24/18 22:35 Dose: 16 unit Rosuvastatin Calcium (Crestor) 5 mg PO HS [facility] Last Admin: 08/24/18 21:29 Dose: 5 mg Sevelamer Carbonate (Renvela) 800 mg PO TIDCC [facility] Last Admin: 08/25/18 11:57 Dose: 800 mg Tamsulosin HCl (Flomax) 0.4 mg PO DAILY [facility] Last Admin: 08/25/18 09:34 Dose: 0.4 mg Vitamin B Complex/Vit C/Folic Acid (Nephro-Amita) 1 tab PO 0800 [facility] Last Admin: 08/25/18 07:51 Dose: 1 tab - Labs Labs: 08/24/18 07:59 08/24/18 07:59 PT 12.8 SECONDS (9.7-12.2) H 08/23/18 13:10 INR 1.2 08/23/18 13:10 APTT 34.0 SECONDS (21-34) 08/23/18 13:10 - Constitutional Appears: No Acute Distress, Cachectic, Chronically Ill - Head Exam Head Exam: ATRAUMATIC, NORMAL INSPECTION, NORMOCEPHALIC - Eye Exam Eye Exam: EOMI, Normal appearance, PERRL Pupil Exam: NORMAL ACCOMODATION, PERRL - ENT Exam ENT Exam: Mucous Membranes Moist, Normal Exam - Neck Exam Neck Exam: Full ROM, Normal Inspection. absent: Lymphadenopathy - Respiratory Exam Respiratory Exam: Clear to Ausculation Bilateral, NORMAL BREATHING PATTERN - Cardiovascular Exam Cardiovascular Exam: REGULAR RHYTHM, +S1, +S2. absent: Murmur - GI/Abdominal Exam GI & Abdominal Exam: Soft, Normal Bowel Sounds. absent: Tenderness - Rectal Exam Rectal Exam: Deferred - Exam Exam: NORMAL INSPECTION - Extremities Exam Extremities Exam: Full ROM, Normal Capillary Refill, Normal Inspection. absent: Joint Swelling, Pedal Edema - Back Exam Back Exam: NORMAL INSPECTION - Neurological Exam Neurological Exam: Alert, Awake, CN II-XII Intact, Normal Gait, Oriented x3 - Psychiatric Exam Psychiatric exam: Normal Affect, Normal Mood - Skin Skin Exam: Dry, Pallor. absent: Intact, Normal Color Assessment and Plan (1) PVD (peripheral vascular disease) Status: Chronic (2) Cellulitis of left lower leg Status: Acute (3) Infected ulcer of skin Status: Acute (4) Non-healing open wound of heel Status: Acute (5) ESRD on hemodialysis Status: Chronic - Assessment and Plan (Free Text) Assessment: MRSA bacteremia/ sepsis infected wounds / cellulitis ESRD on HD cont IV Vanco / Cefepime prognosis guarded for limb salvage
[2018-08-25] MEDS: (Lantus) Insulin Glargine, Recombinant SC SCH (21:32)
--- NOTE | 2018-08-25 23:01 | CP.PCM.PN ---
Subjective - Date & Time of Evaluation Date of Evaluation: 08/25/18 Time of Evaluation: 20:00 - Subjective Subjective: Patient more alert with better appetite. Complaining of constipation. On IV Maxipine and IV Vancomycine. Objective - Vital Signs/Intake and Output Vital Signs (last 24 hours): Temp Pulse Resp BP Pulse Ox 97.7 F 87 20 127/64 96 08/25/18 16:21 08/25/18 16:21 08/25/18 16:21 08/25/18 16:21 08/25/18 16:21 Intake and Output: 08/25/18 08/26/18 18:59 06:59 Intake Total 300 Output Total 0 Balance 300 - Medications Medications: Current Medications Acetaminophen (Tylenol 325mg Tab) 325 mg PO Q6 PRN PRN Reason: Pain, Mild (1-3) Amlodipine Besylate (Norvasc) 5 mg PO DAILY [facility] Last Admin: 08/25/18 09:34 Dose: 5 mg Heparin Sodium (Porcine) (Heparin) 5,000 units SC Q8 [facility] Last Admin: 08/25/18 21:32 Dose: 5,000 units Cefepime HCl 1 gm/ Dextrose 50 mls @ 100 mls/hr IVPB Q24H [facility]; Protocol Last Admin: 08/25/18 21:33 Dose: 100 mls/hr Vancomycin/Sodium Chloride (Vancomycin 1 Gm/Ns 200 Ml) 1 gm in 200 mls @ 133.333 mls/hr IVPB TTS [facility]; Protocol Last Admin: 08/24/18 19:30 Dose: 133.333 mls/hr Insulin Aspart (Novolog) 0 unit SC ACHS [facility]; Protocol Last Admin: 08/25/18 21:27 Dose: Not Given Insulin Glargine (Lantus) 16 unit SC HS [facility] Last Admin: 08/25/18 21:32 Dose: 16 unit Rosuvastatin Calcium (Crestor) 5 mg PO HS [facility] Last Admin: 08/25/18 21:33 Dose: 5 mg Sevelamer Carbonate (Renvela) 800 mg PO TIDCC [facility] Last Admin: 08/25/18 17:28 Dose: 800 mg Tamsulosin HCl (Flomax) 0.4 mg PO DAILY [facility] Last Admin: 08/25/18 09:34 Dose: 0.4 mg Vitamin B Complex/Vit C/Folic Acid (Nephro-Amita) 1 tab PO 0800 [facility] Last Admin: 08/25/18 07:51 Dose: 1 tab - Labs Labs: 08/24/18 07:59 08/24/18 07:59 PT 12.8 SECONDS (9.7-12.2) H 08/23/18 13:10 INR 1.2 08/23/18 13:10 APTT 34.0 SECONDS (21-34) 08/23/18 13:10 - Constitutional Appears: No Acute Distress, Cachectic, Chronically Ill - Head Exam Head Exam: NORMOCEPHALIC - Eye Exam Eye Exam: Normal appearance - ENT Exam ENT Exam: Normal Exam - Neck Exam Neck Exam: Normal Inspection - Respiratory Exam Respiratory Exam: Clear to Ausculation Bilateral, NORMAL BREATHING PATTERN - Cardiovascular Exam Cardiovascular Exam: REGULAR RHYTHM - GI/Abdominal Exam GI & Abdominal Exam: Soft, Normal Bowel Sounds - Rectal Exam Rectal Exam: Deferred - Exam Exam: NORMAL INSPECTION - Extremities Exam Additional comments: Erythema and ulcerations of the left lower leg. - Back Exam Back Exam: NORMAL INSPECTION - Neurological Exam Neurological Exam: Alert, Awake, Oriented x3 - Psychiatric Exam Psychiatric exam: Anxious Assessment and Plan (1) Cellulitis of left lower leg Assessment & Plan: On IV antibiotics. Status: Acute (2) PVD (peripheral vascular disease) Status: Chronic (3) ESRD on hemodialysis Status: Chronic (4) Atrial fibrillation Assessment & Plan: On s/c Heparin. Status: Chronic (5) Insulin dependent diabetes mellitus Status: Chronic
[2018-08-26] MEDS: (Novolog) Insulin Aspart, Recombinant 100 u/ml 10 ml vial SC SCH ×4 (07:22→21:29)
[2018-08-26] MEDS: Multivitamin Vitamin B Complex (Nephro-Vite) Tab PO SCH (07:58)
--- NOTE | 2018-08-26 09:09 | CP.PCM.PN ---
Subjective - Date & Time of Evaluation Date of Evaluation: 08/26/18 Time of Evaluation: 09:06 - Subjective Subjective: Notes reviewed Comfortable in bed Offers no new complaints Remains weak Eating breakfast No pain in feet - dressings in place Discussed dialysis treatments No f/c Does not ambulate ROS: 10 point ros negative other than stated above Objective - Vital Signs/Intake and Output Vital Signs (last 24 hours): Temp Pulse Resp BP Pulse Ox 97.8 F 82 20 131/74 98 08/26/18 08:00 08/26/18 08:00 08/26/18 08:00 08/26/18 08:00 08/26/18 08:00 Intake and Output: 08/26/18 08/26/18 06:59 18:59 Intake Total 780 Output Total 0 Balance 780 - Medications Medications: Current Medications Acetaminophen (Tylenol 325mg Tab) 325 mg PO Q6 PRN PRN Reason: Pain, Mild (1-3) Amlodipine Besylate (Norvasc) 5 mg PO DAILY [facility] Last Admin: 08/25/18 09:34 Dose: 5 mg Heparin Sodium (Porcine) (Heparin) 5,000 units SC Q8 [facility] Last Admin: 08/26/18 06:01 Dose: 5,000 units Cefepime HCl 1 gm/ Dextrose 50 mls @ 100 mls/hr IVPB Q24H [facility]; Protocol Last Admin: 08/25/18 21:33 Dose: 100 mls/hr Vancomycin/Sodium Chloride (Vancomycin 1 Gm/Ns 200 Ml) 1 gm in 200 mls @ 133.333 mls/hr IVPB TTS DON; Protocol Last Admin: 08/24/18 19:30 Dose: 133.333 mls/hr Insulin Aspart (Novolog) 0 unit SC ACHS [facility]; Protocol Last Admin: 08/26/18 07:22 Dose: Not Given Insulin Glargine (Lantus) 16 unit SC HS [facility] Last Admin: 08/25/18 21:32 Dose: 16 unit Rosuvastatin Calcium (Crestor) 5 mg PO HS [facility] Last Admin: 08/25/18 21:33 Dose: 5 mg Sevelamer Carbonate (Renvela) 800 mg PO TIDCC [facility] Last Admin: 08/26/18 07:59 Dose: 800 mg Tamsulosin HCl (Flomax) 0.4 mg PO DAILY [facility] Last Admin: 08/25/18 09:34 Dose: 0.4 mg Vitamin B Complex/Vit C/Folic Acid (Nephro-Amita) 1 tab PO 0800 [facility] Last Admin: 08/26/18 07:58 Dose: 1 tab - Labs Labs: 08/24/18 07:59 08/24/18 07:59 PT 12.8 SECONDS (9.7-12.2) H 08/23/18 13:10 INR 1.2 08/23/18 13:10 APTT 34.0 SECONDS (21-34) 08/23/18 13:10 - Constitutional Appears: No Acute Distress, Chronically Ill - Head Exam Head Exam: ATRAUMATIC, NORMAL INSPECTION - Eye Exam Eye Exam: EOMI, Normal appearance - ENT Exam ENT Exam: Mucous Membranes Moist, Normal Oropharynx - Neck Exam Neck Exam: absent: Lymphadenopathy, Thyromegaly - Respiratory Exam Respiratory Exam: Clear to Ausculation Bilateral. absent: Rhonchi, Wheezes - Cardiovascular Exam Cardiovascular Exam: +S1, +S2. absent: Rubs - GI/Abdominal Exam GI & Abdominal Exam: Soft, Normal Bowel Sounds - Extremities Exam Extremities Exam: absent: Pedal Edema, Tenderness - Neurological Exam Neurological Exam: Alert, Awake - Skin Additional comments: dressings on both feet Air brace on Assessment and Plan (1) Cellulitis of left lower leg Status: Acute (2) PAD (peripheral artery disease) Status: Acute (3) Type 2 diabetes mellitus with diabetic nephropathy Status: Acute (4) ESRD on hemodialysis Status: Chronic (5) Anemia Status: Acute - Assessment and Plan (Free Text) Assessment: Maintain dialysis schedule Dialysis today, uf as tolerated Bp stable Labs with dialysis Continue current care
[2018-08-26] MEDS: Vancomycin 1 gm/NS 200 ml 1 GM/200 ML BAG IVPB SCH (09:55)
--- NOTE | 2018-08-26 15:22 | CP.PCM.PN ---
Subjective - Date & Time of Evaluation Date of Evaluation: 08/26/18 Time of Evaluation: 15:20 - Subjective Subjective: Patient seen during HD. Alert, oriented, in no respiratory difficulty. Had 2 BM last night. Objective - Vital Signs/Intake and Output Vital Signs (last 24 hours): Temp Pulse Resp BP Pulse Ox 97 F L 76 20 112/48 L 100 08/26/18 13:35 08/26/18 14:35 08/26/18 14:35 08/26/18 14:35 08/26/18 14:35 Intake and Output: 08/26/18 08/26/18 06:59 18:59 Intake Total 780 Output Total 0 Balance 780 - Medications Medications: Current Medications Acetaminophen (Tylenol 325mg Tab) 325 mg PO Q6 PRN PRN Reason: Pain, Mild (1-3) Amlodipine Besylate (Norvasc) 5 mg PO DAILY [facility] Last Admin: 08/26/18 09:24 Dose: 5 mg Heparin Sodium (Porcine) (Heparin) 5,000 units SC Q8 [facility] Last Admin: 08/26/18 13:26 Dose: Not Given Cefepime HCl 1 gm/ Dextrose 50 mls @ 100 mls/hr IVPB Q24H [facility]; Protocol Last Admin: 08/25/18 21:33 Dose: 100 mls/hr Vancomycin/Sodium Chloride (Vancomycin 1 Gm/Ns 200 Ml) 1 gm in 200 mls @ 133.333 mls/hr IVPB TTS DON; Protocol Last Admin: 08/26/18 09:55 Dose: 133.333 mls/hr Insulin Aspart (Novolog) 0 unit SC ACHS [facility]; Protocol Last Admin: 08/26/18 11:37 Dose: Not Given Insulin Glargine (Lantus) 16 unit SC HS [facility] Last Admin: 08/25/18 21:32 Dose: 16 unit Rosuvastatin Calcium (Crestor) 5 mg PO HS [facility] Last Admin: 08/25/18 21:33 Dose: 5 mg Sevelamer Carbonate (Renvela) 800 mg PO TIDCC [facility] Last Admin: 08/26/18 11:43 Dose: 800 mg Tamsulosin HCl (Flomax) 0.4 mg PO DAILY [facility] Last Admin: 08/26/18 09:24 Dose: 0.4 mg Vitamin B Complex/Vit C/Folic Acid (Nephro-Amita) 1 tab PO 0800 [facility] Last Admin: 08/26/18 07:58 Dose: 1 tab - Labs Labs: 08/24/18 07:59 08/24/18 07:59 PT 12.8 SECONDS (9.7-12.2) H 08/23/18 13:10 INR 1.2 08/23/18 13:10 APTT 34.0 SECONDS (21-34) 08/23/18 13:10 - Constitutional Appears: Well, Non-toxic, No Acute Distress, Cachectic, Chronically Ill - Head Exam Head Exam: NORMOCEPHALIC - Eye Exam Eye Exam: Normal appearance - ENT Exam ENT Exam: Normal Exam - Neck Exam Neck Exam: Normal Inspection - Respiratory Exam Respiratory Exam: Clear to Ausculation Bilateral, NORMAL BREATHING PATTERN - Cardiovascular Exam Cardiovascular Exam: REGULAR RHYTHM - GI/Abdominal Exam GI & Abdominal Exam: Soft, Normal Bowel Sounds - Rectal Exam Rectal Exam: Deferred - Extremities Exam Additional comments: Both lower legs under bandages. - Back Exam Back Exam: NORMAL INSPECTION - Neurological Exam Neurological Exam: Alert, Awake, Oriented x3 Additional comments: Bedbound. - Psychiatric Exam Psychiatric exam: Anxious Assessment and Plan (1) Cellulitis of left lower leg Assessment & Plan: On IV antibiotics and local wound care. Status: Acute (2) PVD (peripheral vascular disease) Status: Chronic (3) ESRD on hemodialysis Assessment & Plan: On HD as per Nephrologists. Status: Chronic (4) Atrial fibrillation Assessment & Plan: On Heparin s/c. Status: Chronic (5) Insulin dependent diabetes mellitus Status: Chronic
--- NOTE | 2018-08-26 19:15 | CP.PCM.PN ---
Subjective - Date & Time of Evaluation Date of Evaluation: 08/26/18 Time of Evaluation: 19:10 - Subjective Subjective: Podiatry progress note - Dr. Cavanaugh 73M seen and evaluated with attending Dr. Cavanaugh at bedside for worsening bilateral LE ulcerations (L>R). Family is at bedside. States patient is in no pain today and had no acute events overnight. Patients wounds necrotic, stable. Denies n/v/f/c/sob at this time. Objective - Vital Signs/Intake and Output Vital Signs (last 24 hours): Temp Pulse Resp BP Pulse Ox 97.8 F 84 18 110/60 99 08/26/18 16:40 08/26/18 16:40 08/26/18 16:40 08/26/18 16:40 08/26/18 16:40 - Medications Medications: Current Medications Acetaminophen (Tylenol 325mg Tab) 325 mg PO Q6 PRN PRN Reason: Pain, Mild (1-3) Amlodipine Besylate (Norvasc) 5 mg PO DAILY [facility] Last Admin: 08/26/18 09:24 Dose: 5 mg Heparin Sodium (Porcine) (Heparin) 5,000 units SC Q8 [facility] Last Admin: 08/26/18 13:26 Dose: Not Given Cefepime HCl 1 gm/ Dextrose 50 mls @ 100 mls/hr IVPB Q24H [facility]; Protocol Last Admin: 08/25/18 21:33 Dose: 100 mls/hr Vancomycin/Sodium Chloride (Vancomycin 1 Gm/Ns 200 Ml) 1 gm in 200 mls @ 133.333 mls/hr IVPB TTS [facility]; Protocol Last Admin: 08/26/18 09:55 Dose: 133.333 mls/hr Insulin Aspart (Novolog) 0 unit SC ACHS [facility]; Protocol Last Admin: 08/26/18 17:10 Dose: Not Given Insulin Glargine (Lantus) 16 unit SC HS [facility] Last Admin: 08/25/18 21:32 Dose: 16 unit Rosuvastatin Calcium (Crestor) 5 mg PO HS [facility] Last Admin: 08/25/18 21:33 Dose: 5 mg Sevelamer Carbonate (Renvela) 800 mg PO TIDCC [facility] Last Admin: 08/26/18 17:24 Dose: 800 mg Tamsulosin HCl (Flomax) 0.4 mg PO DAILY [facility] Last Admin: 08/26/18 09:24 Dose: 0.4 mg Vitamin B Complex/Vit C/Folic Acid (Nephro-Amita) 1 tab PO 0800 [facility] Last Admin: 08/26/18 07:58 Dose: 1 tab - Labs Labs: 08/24/18 07:59 08/24/18 07:59 PT 12.8 SECONDS (9.7-12.2) H 08/23/18 13:10 INR 1.2 08/23/18 13:10 APTT 34.0 SECONDS (21-34) 08/23/18 13:10 - Constitutional Appears: Non-toxic - Head Exam Head Exam: ATRAUMATIC - Extremities Exam Additional comments: Dressing to bilateral LE are clean, dry and intact - no strike through noted - Neurological Exam Neurological Exam: Alert, Awake - Psychiatric Exam Psychiatric exam: Normal Affect Assessment and Plan - Assessment and Plan (Free Text) Assessment: 73M with worsening multiple bilateral LE ulcerations (L>R) Plan: Patient seen and evaluated with Dr. Cavanaugh VSS, WBC 9.0 (08/24) Ankle and Tib-Fib x-rays: No soft tissue emphysema, no acute changes Dressing to bilateral LE using xerofrom, ABD, DSD Wound cultures: G+ cocci ID consult, IV abx as per ID Vascular consult, Dr. Macias No plans for surgical intervention from podiatry standpoint at this time If no plan per surgery/vascular recommend rehab Will continue with local wound care
[2018-08-26] MEDS: (Lantus) Insulin Glargine, Recombinant SC SCH (21:45)
[2018-08-27] MEDS ORDERED: Dextrose 50% SYRINGE Inj (50 ml) ONE (07:34)
[2018-08-27] MEDS: (Novolog) Insulin Aspart, Recombinant 100 u/ml 10 ml vial SC SCH ×4 (08:00→21:41)
[2018-08-27] MEDS: Multivitamin Vitamin B Complex (Nephro-Vite) Tab PO SCH (08:30)
--- NOTE | 2018-08-27 11:33 | CP.PCM.PN ---
Subjective - Date & Time of Evaluation Date of Evaluation: 08/27/18 Time of Evaluation: 11:32 - Subjective Subjective: Podiatry progress note - Dr. Cavanaugh 73M seen and evaluated with attending Dr. Caavnaugh at bedside for worsening bilateral LE ulcerations (L>R). Family is at bedside. States patient is in no pain today and had no acute events overnight. Patients wounds necrotic, stable. Denies n/v/f/c/sob at this time. Objective - Vital Signs/Intake and Output Vital Signs (last 24 hours): Temp Pulse Resp BP Pulse Ox 97.4 F L 79 20 116/65 100 08/27/18 08:00 08/27/18 08:00 08/27/18 08:00 08/27/18 08:00 08/27/18 08:00 Intake and Output: 08/27/18 08/27/18 06:59 18:59 Intake Total 350 150 Balance 350 150 - Medications Medications: Current Medications Acetaminophen (Tylenol 325mg Tab) 325 mg PO Q6 PRN PRN Reason: Pain, Mild (1-3) Amlodipine Besylate (Norvasc) 5 mg PO DAILY [facility] Last Admin: 08/27/18 09:50 Dose: 5 mg Heparin Sodium (Porcine) (Heparin) 5,000 units SC Q8 [facility] Last Admin: 08/27/18 05:33 Dose: 5,000 units Cefepime HCl 1 gm/ Dextrose 50 mls @ 100 mls/hr IVPB Q24H [facility]; Protocol Last Admin: 08/26/18 21:35 Dose: 100 mls/hr Vancomycin/Sodium Chloride (Vancomycin 1 Gm/Ns 200 Ml) 1 gm in 200 mls @ 133.333 mls/hr IVPB TTS DON; Protocol Last Admin: 08/26/18 09:55 Dose: 133.333 mls/hr Insulin Aspart (Novolog) 0 unit SC ACHS [facility]; Protocol Last Admin: 08/27/18 08:00 Dose: Not Given Insulin Glargine (Lantus) 16 unit SC HS DON Last Admin: 08/26/18 21:45 Dose: Not Given Rosuvastatin Calcium (Crestor) 5 mg PO HS [facility] Last Admin: 08/26/18 21:33 Dose: 5 mg Sevelamer Carbonate (Renvela) 800 mg PO TIDCC [facility] Last Admin: 08/27/18 08:31 Dose: 800 mg Tamsulosin HCl (Flomax) 0.4 mg PO DAILY [facility] Last Admin: 08/27/18 09:50 Dose: 0.4 mg Vitamin B Complex/Vit C/Folic Acid (Nephro-Amita) 1 tab PO 0800 [facility] Last Admin: 08/27/18 08:30 Dose: 1 tab - Labs Labs: 08/24/18 07:59 08/24/18 07:59 PT 12.8 SECONDS (9.7-12.2) H 08/23/18 13:10 INR 1.2 08/23/18 13:10 APTT 34.0 SECONDS (21-34) 08/23/18 13:10 - Constitutional Appears: Non-toxic - Head Exam Head Exam: ATRAUMATIC - Extremities Exam Additional comments: Dressing to bilateral LE are clean, dry and intact - no strike through noted - Neurological Exam Neurological Exam: Alert, Awake - Psychiatric Exam Psychiatric exam: Normal Affect Assessment and Plan - Assessment and Plan (Free Text) Assessment: 73M with worsening multiple bilateral LE ulcerations (L>R) Plan: Patient seen and evaluated with Dr. Cavanaugh VSS, WBC 9.0 (08/24) Ankle and Tib-Fib x-rays: No soft tissue emphysema, no acute changes Dressing to bilateral LE using xerofrom, ABD, DSD Wound cultures: G+ cocci ID consult, IV abx as per ID Vascular consult, Dr. Macias No plans for surgical intervention from podiatry standpoint at this time If no plan per surgery/vascular recommend rehab Will continue with local wound care
--- NOTE | 2018-08-27 15:09 | CP.PCM.PN ---
Subjective - Date & Time of Evaluation Date of Evaluation: 08/27/18 Time of Evaluation: 07:00 - Subjective Subjective: awake and alert interim events noted patient examined entries reviewed labs reviewed orders signed Objective - Vital Signs/Intake and Output Vital Signs (last 24 hours): Temp Pulse Resp BP Pulse Ox 97.4 F L 79 20 116/65 100 08/27/18 08:00 08/27/18 08:00 08/27/18 08:00 08/27/18 08:00 08/27/18 08:00 Intake and Output: 08/27/18 08/27/18 06:59 18:59 Intake Total 350 150 Balance 350 150 - Medications Medications: Current Medications Acetaminophen (Tylenol 325mg Tab) 325 mg PO Q6 PRN PRN Reason: Pain, Mild (1-3) Amlodipine Besylate (Norvasc) 5 mg PO DAILY [facility] Last Admin: 08/27/18 09:50 Dose: 5 mg Heparin Sodium (Porcine) (Heparin) 5,000 units SC Q8 [facility] Last Admin: 08/27/18 14:11 Dose: 5,000 units Cefepime HCl 1 gm/ Dextrose 50 mls @ 100 mls/hr IVPB Q24H DON; Protocol Last Admin: 08/26/18 21:35 Dose: 100 mls/hr Vancomycin/Sodium Chloride (Vancomycin 1 Gm/Ns 200 Ml) 1 gm in 200 mls @ 133.333 mls/hr IVPB TTS DON; Protocol Last Admin: 08/26/18 09:55 Dose: 133.333 mls/hr Insulin Aspart (Novolog) 0 unit SC ACHS [facility]; Protocol Last Admin: 08/27/18 12:15 Dose: 2 unit Insulin Glargine (Lantus) 16 unit SC HS [facility] Last Admin: 08/26/18 21:45 Dose: Not Given Rosuvastatin Calcium (Crestor) 5 mg PO HS [facility] Last Admin: 08/26/18 21:33 Dose: 5 mg Sevelamer Carbonate (Renvela) 800 mg PO TIDCC [facility] Last Admin: 08/27/18 12:16 Dose: 800 mg Tamsulosin HCl (Flomax) 0.4 mg PO DAILY [facility] Last Admin: 08/27/18 09:50 Dose: 0.4 mg Vitamin B Complex/Vit C/Folic Acid (Nephro-Amita) 1 tab PO 0800 [facility] Last Admin: 08/27/18 08:30 Dose: 1 tab - Labs Labs: 08/24/18 07:59 08/24/18 07:59 PT 12.8 SECONDS (9.7-12.2) H 08/23/18 13:10 INR 1.2 08/23/18 13:10 APTT 34.0 SECONDS (21-34) 08/23/18 13:10 - Constitutional Appears: Cachectic, Chronically Ill - Head Exam Head Exam: NORMOCEPHALIC - Eye Exam Eye Exam: absent: Scleral icterus - ENT Exam ENT Exam: Mucous Membranes Dry - Neck Exam Neck Exam: absent: Lymphadenopathy - Respiratory Exam Respiratory Exam: Decreased Breath Sounds, Rhonchi - Cardiovascular Exam Cardiovascular Exam: REGULAR RHYTHM, +S1, +S2 - GI/Abdominal Exam GI & Abdominal Exam: Distended, Soft. absent: Tenderness - Rectal Exam Rectal Exam: Deferred - Exam Exam: NORMAL INSPECTION - Extremities Exam Extremities Exam: absent: Pedal Edema - Back Exam Back Exam: absent: CVA tenderness (L), CVA tenderness (R), paraspinal tenderness - Neurological Exam Neurological Exam: Alert, Awake, CN II-XII Intact - Psychiatric Exam Psychiatric exam: Depressed - Skin Skin Exam: Dry. absent: Normal Color Additional comments: multiple ulcers both legs L >R Assessment and Plan (1) PVD (peripheral vascular disease) Status: Chronic (2) Cellulitis of left lower leg Status: Acute (3) Infected ulcer of skin Status: Acute (4) Non-healing open wound of heel Status: Acute (5) ESRD on hemodialysis Status: Chronic - Assessment and Plan (Free Text) Assessment: MRSA bacteremia and sepsis r/o OM recurrent staph infections ON IV antibiotics consider echo/Bone scan
[2018-08-27] MEDS: (Lantus) Insulin Glargine, Recombinant SC SCH (21:54)
--- NOTE | 2018-08-27 22:11 | CP.PCM.PN ---
Subjective - Date & Time of Evaluation Date of Evaluation: 08/27/18 Time of Evaluation: 20:00 - Subjective Subjective: Patient awake, in no respiratory distress, has no pain. On IV Cefepime and Vacomycine. Objective - Vital Signs/Intake and Output Vital Signs (last 24 hours): Temp Pulse Resp BP Pulse Ox 98.4 F 82 20 138/66 97 08/27/18 16:00 08/27/18 16:00 08/27/18 16:00 08/27/18 16:00 08/27/18 16:00 Intake and Output: 08/27/18 08/28/18 18:59 06:59 Intake Total 150 Balance 150 - Medications Medications: Current Medications Acetaminophen (Tylenol 325mg Tab) 325 mg PO Q6 PRN PRN Reason: Pain, Mild (1-3) Amlodipine Besylate (Norvasc) 5 mg PO DAILY [facility] Last Admin: 08/27/18 09:50 Dose: 5 mg Heparin Sodium (Porcine) (Heparin) 5,000 units SC Q8 [facility] Last Admin: 08/27/18 21:51 Dose: 5,000 units Cefepime HCl 1 gm/ Dextrose 50 mls @ 100 mls/hr IVPB Q24H [facility]; Protocol Last Admin: 08/27/18 21:55 Dose: 100 mls/hr Vancomycin/Sodium Chloride (Vancomycin 1 Gm/Ns 200 Ml) 1 gm in 200 mls @ 133.333 mls/hr IVPB TTS DON; Protocol Last Admin: 08/26/18 09:55 Dose: 133.333 mls/hr Insulin Aspart (Novolog) 0 unit SC ACHS [facility]; Protocol Last Admin: 08/27/18 21:41 Dose: Not Given Insulin Glargine (Lantus) 16 unit SC HS [facility] Last Admin: 08/27/18 21:54 Dose: 16 unit Rosuvastatin Calcium (Crestor) 5 mg PO HS [facility] Last Admin: 08/27/18 21:55 Dose: 5 mg Sevelamer Carbonate (Renvela) 800 mg PO TIDCC [facility] Last Admin: 08/27/18 16:54 Dose: 800 mg Tamsulosin HCl (Flomax) 0.4 mg PO DAILY [facility] Last Admin: 08/27/18 09:50 Dose: 0.4 mg Vitamin B Complex/Vit C/Folic Acid (Nephro-Amita) 1 tab PO 0800 [facility] Last Admin: 08/27/18 08:30 Dose: 1 tab - Labs Labs: 08/24/18 07:59 08/24/18 07:59 PT 12.8 SECONDS (9.7-12.2) H 08/23/18 13:10 INR 1.2 08/23/18 13:10 APTT 34.0 SECONDS (21-34) 08/23/18 13:10 - Constitutional Appears: Cachectic, Chronically Ill - Head Exam Head Exam: NORMOCEPHALIC - Eye Exam Eye Exam: Normal appearance - ENT Exam ENT Exam: Normal Exam - Neck Exam Neck Exam: Normal Inspection - Respiratory Exam Respiratory Exam: Clear to Ausculation Bilateral - Cardiovascular Exam Cardiovascular Exam: REGULAR RHYTHM - GI/Abdominal Exam GI & Abdominal Exam: Soft, Normal Bowel Sounds - Exam Exam: NORMAL INSPECTION - Extremities Exam Additional comments: Bilateral lower leg cellulitis, with ulcerations. - Back Exam Back Exam: NORMAL INSPECTION - Neurological Exam Neurological Exam: Alert, Awake, Oriented x3 - Psychiatric Exam Psychiatric exam: Anxious, Depressed Assessment and Plan (1) Cellulitis of left lower leg Assessment & Plan: On IV antibiotics and local wound care. Status: Acute (2) PVD (peripheral vascular disease) Status: Chronic (3) ESRD on hemodialysis Status: Chronic (4) Atrial fibrillation Assessment & Plan: Restart Eliquis if no surgical intervention is contemplated. Status: Chronic (5) Insulin dependent diabetes mellitus Status: Chronic
[2018-08-28] MEDS: Multivitamin Vitamin B Complex (Nephro-Vite) Tab PO SCH (08:30)
[2018-08-28] MEDS: (Novolog) Insulin Aspart, Recombinant 100 u/ml 10 ml vial SC SCH ×4 (08:30→21:10)
--- NOTE | 2018-08-28 11:32 | CP.PCM.PN ---
Subjective - Date & Time of Evaluation Date of Evaluation: 08/28/18 Time of Evaluation: 11:32 - Subjective Subjective: Podiatry progress note - Dr. Cavanaugh 73M seen and evaluated this AM for bilateral lower extremity wounds (L>R). present at bedside. NAD. No acute events overnight. Patient offers no new lower extremity complaints; denies pain to wounds; dressings clean/dry/intact. Denies n/v/f/d/c/sob/arellano/cp. Awaiting vascular recs. Objective - Vital Signs/Intake and Output Vital Signs (last 24 hours): Temp Pulse Resp BP Pulse Ox 97.8 F 80 20 130/60 100 08/27/18 23:42 08/27/18 23:42 08/27/18 23:42 08/27/18 23:42 08/27/18 23:42 Intake and Output: 08/28/18 08/28/18 06:59 18:59 Intake Total 400 240 Balance 400 240 - Medications Medications: Current Medications Acetaminophen (Tylenol 325mg Tab) 325 mg PO Q6 PRN PRN Reason: Pain, Mild (1-3) Amlodipine Besylate (Norvasc) 5 mg PO DAILY [facility] Last Admin: 08/28/18 09:45 Dose: 5 mg Heparin Sodium (Porcine) (Heparin) 5,000 units SC Q8 [facility] Last Admin: 08/28/18 05:43 Dose: 5,000 units Cefepime HCl 1 gm/ Dextrose 50 mls @ 100 mls/hr IVPB Q24H [facility]; Protocol Last Admin: 08/27/18 21:55 Dose: 100 mls/hr Vancomycin/Sodium Chloride (Vancomycin 1 Gm/Ns 200 Ml) 1 gm in 200 mls @ 133.333 mls/hr IVPB TTS DON; Protocol Last Admin: 08/26/18 09:55 Dose: 133.333 mls/hr Insulin Aspart (Novolog) 0 unit SC ACHS [facility]; Protocol Last Admin: 08/28/18 08:30 Dose: 2 unit Insulin Glargine (Lantus) 16 unit SC HS [facility] Last Admin: 08/27/18 21:54 Dose: 16 unit Rosuvastatin Calcium (Crestor) 5 mg PO HS [facility] Last Admin: 08/27/18 21:55 Dose: 5 mg Sevelamer Carbonate (Renvela) 800 mg PO TIDCC [facility] Last Admin: 08/28/18 08:30 Dose: 800 mg Tamsulosin HCl (Flomax) 0.4 mg PO DAILY [facility] Last Admin: 08/28/18 09:45 Dose: 0.4 mg Vitamin B Complex/Vit C/Folic Acid (Nephro-Amita) 1 tab PO 0800 [facility] Last Admin: 08/28/18 08:30 Dose: 1 tab - Labs Labs: 08/24/18 07:59 08/24/18 07:59 PT 12.8 SECONDS (9.7-12.2) H 08/23/18 13:10 INR 1.2 08/23/18 13:10 APTT 34.0 SECONDS (21-34) 08/23/18 13:10 - Constitutional Appears: Non-toxic, No Acute Distress - Extremities Exam Additional comments: Lower extremity focused exam: VASC: DP/PT pulses are non-palpable at this time. Temperature gradient cool to cool from proximal to distal b/l. CFT slightly delayed, > 3 sec to all digits on the left and approx 3 sec to the right; diffuse non-pitting edema noted to the distal left LE grossly DERM: healed ulceration noted to left lateral midfoot with overlying hyperkeratotic tissue. Stage 2 pressure ulceration to left heel with thin fragile erythematous skin with no break in skin noted; Right mid leg wound measuring approx 2.5 cm x 2.0 cm with approx 80 percent fibrosis and 20 percent grannular base, no purulence, slight malodor; LLE clinically appears worst than RLE NEURO: Protective sensation slightly diminished ORTHO: No tenderness to palpation of left lower extremity ulcerations - Neurological Exam Neurological Exam: Alert, Awake, Oriented x3 - Psychiatric Exam Psychiatric exam: Normal Affect, Normal Mood Assessment and Plan - Assessment and Plan (Free Text) Assessment: 73M with worsening multiple bilateral LE ulcerations (L>R) Plan: Patient seen and evaluated Discussed with attending, Dr. Mao BARNETT Ankle and Tib-Fib x-rays: No soft tissue emphysema, no acute changes Continue local wound care b/l LE: xerofrom, ABD, DSD Wear multipodus boots to offload decubitus ulcerations b/l Wound cultures: MRSA ID consult, IV abx as per ID - Cefepime, Vancomycin Bone scan: severe cellulitis about left ankle; no acute osseous abnormalities Vascular consult, Dr. Macias - awaiting recs No plans for podiatric surgical intervention If no plan per surgery/vascular recommend rehab Podiatry will continue to follow
--- NOTE | 2018-08-28 12:34 | CP.PCM.PN ---
Subjective - Date & Time of Evaluation Date of Evaluation: 08/28/18 Time of Evaluation: 09:00 - Subjective Subjective: MRSA bacteremia/ sepsis had bone scan c/o pain left foot has dry necrotic areas on left great toe as well as left 5th met head area and left heel Objective - Vital Signs/Intake and Output Vital Signs (last 24 hours): Temp Pulse Resp BP Pulse Ox 97.8 F 80 20 130/60 100 08/27/18 23:42 08/27/18 23:42 08/27/18 23:42 08/27/18 23:42 08/27/18 23:42 Intake and Output: 08/28/18 08/28/18 06:59 18:59 Intake Total 400 240 Balance 400 240 - Medications Medications: Current Medications Acetaminophen (Tylenol 325mg Tab) 325 mg PO Q6 PRN PRN Reason: Pain, Mild (1-3) Amlodipine Besylate (Norvasc) 5 mg PO DAILY [facility] Last Admin: 08/28/18 09:45 Dose: 5 mg Heparin Sodium (Porcine) (Heparin) 5,000 units SC Q8 [facility] Last Admin: 08/28/18 05:43 Dose: 5,000 units Cefepime HCl 1 gm/ Dextrose 50 mls @ 100 mls/hr IVPB Q24H [facility]; Protocol Last Admin: 08/27/18 21:55 Dose: 100 mls/hr Vancomycin/Sodium Chloride (Vancomycin 1 Gm/Ns 200 Ml) 1 gm in 200 mls @ 133.333 mls/hr IVPB TTS [facility]; Protocol Last Admin: 08/26/18 09:55 Dose: 133.333 mls/hr Insulin Aspart (Novolog) 0 unit SC ACHS [facility]; Protocol Last Admin: 08/28/18 12:12 Dose: 3 unit Insulin Glargine (Lantus) 16 unit SC HS [facility] Last Admin: 08/27/18 21:54 Dose: 16 unit Rosuvastatin Calcium (Crestor) 5 mg PO HS [facility] Last Admin: 08/27/18 21:55 Dose: 5 mg Sevelamer Carbonate (Renvela) 800 mg PO TIDCC [facility] Last Admin: 08/28/18 12:12 Dose: 800 mg Tamsulosin HCl (Flomax) 0.4 mg PO DAILY [facility] Last Admin: 08/28/18 09:45 Dose: 0.4 mg Vitamin B Complex/Vit C/Folic Acid (Nephro-Amita) 1 tab PO 0800 [facility] Last Admin: 08/28/18 08:30 Dose: 1 tab - Labs Labs: 08/24/18 07:59 08/24/18 07:59 PT 12.8 SECONDS (9.7-12.2) H 08/23/18 13:10 INR 1.2 08/23/18 13:10 APTT 34.0 SECONDS (21-34) 08/23/18 13:10 - Constitutional Appears: Cachectic, Chronically Ill - Head Exam Head Exam: NORMOCEPHALIC - Eye Exam Eye Exam: absent: Scleral icterus Pupil Exam: NORMAL ACCOMODATION - ENT Exam ENT Exam: Mucous Membranes Dry - Neck Exam Neck Exam: absent: Lymphadenopathy - Respiratory Exam Respiratory Exam: Decreased Breath Sounds, Prolonged Expiratory Phase - Cardiovascular Exam Cardiovascular Exam: REGULAR RHYTHM, +S1, +S2 - GI/Abdominal Exam GI & Abdominal Exam: Distended, Soft - Rectal Exam Rectal Exam: Deferred - Exam Exam: NORMAL INSPECTION - Extremities Exam Extremities Exam: Pedal Edema, Tenderness. absent: Normal Capillary Refill, Normal Inspection - Back Exam Back Exam: absent: CVA tenderness (L), CVA tenderness (R) - Neurological Exam Neurological Exam: Alert, Awake, CN II-XII Intact, Oriented x3 - Psychiatric Exam Psychiatric exam: Depressed - Skin Skin Exam: Dry, Pallor Additional comments: has dry necrotic areas on left great toe as well as left 5th met head area and left heel Assessment and Plan (1) PVD (peripheral vascular disease) Status: Chronic (2) Cellulitis of left lower leg Status: Acute (3) Infected ulcer of skin Status: Acute (4) Non-healing open wound of heel Status: Acute (5) ESRD on hemodialysis Status: Chronic - Assessment and Plan (Free Text) Assessment: repeat blood cultures pending bone scan negative for OM if repeat cultures positive may need TREVA will need min 3 - 6 weeks IV rx vascular eval and wound care in progress
--- NOTE | 2018-08-28 12:54 | CP.PCM.PN ---
Subjective - Date & Time of Evaluation Date of Evaluation: 08/28/18 Time of Evaluation: 12:51 - Subjective Subjective: post bone scan now- results pending alert, afebrile now better appetite dialysis stable on 08/26 wounds covered bilaterally Objective - Vital Signs/Intake and Output Vital Signs (last 24 hours): Temp Pulse Resp BP Pulse Ox 97.8 F 80 20 130/60 100 08/27/18 23:42 08/27/18 23:42 08/27/18 23:42 08/27/18 23:42 08/27/18 23:42 Intake and Output: 08/28/18 08/28/18 06:59 18:59 Intake Total 400 240 Balance 400 240 - Medications Medications: Current Medications Acetaminophen (Tylenol 325mg Tab) 325 mg PO Q6 PRN PRN Reason: Pain, Mild (1-3) Amlodipine Besylate (Norvasc) 5 mg PO DAILY [facility] Last Admin: 08/28/18 09:45 Dose: 5 mg Heparin Sodium (Porcine) (Heparin) 5,000 units SC Q8 [facility] Last Admin: 08/28/18 05:43 Dose: 5,000 units Cefepime HCl 1 gm/ Dextrose 50 mls @ 100 mls/hr IVPB Q24H [facility]; Protocol Last Admin: 08/27/18 21:55 Dose: 100 mls/hr Vancomycin/Sodium Chloride (Vancomycin 1 Gm/Ns 200 Ml) 1 gm in 200 mls @ 133.333 mls/hr IVPB TTS [facility]; Protocol Last Admin: 08/26/18 09:55 Dose: 133.333 mls/hr Insulin Aspart (Novolog) 0 unit SC ACHS [facility]; Protocol Last Admin: 08/28/18 12:12 Dose: 3 unit Insulin Glargine (Lantus) 16 unit SC HS [facility] Last Admin: 08/27/18 21:54 Dose: 16 unit Rosuvastatin Calcium (Crestor) 5 mg PO HS [facility] Last Admin: 08/27/18 21:55 Dose: 5 mg Sevelamer Carbonate (Renvela) 800 mg PO TIDCC [facility] Last Admin: 08/28/18 12:12 Dose: 800 mg Tamsulosin HCl (Flomax) 0.4 mg PO DAILY [facility] Last Admin: 08/28/18 09:45 Dose: 0.4 mg Vitamin B Complex/Vit C/Folic Acid (Nephro-Amita) 1 tab PO 0800 [facility] Last Admin: 08/28/18 08:30 Dose: 1 tab - Labs Labs: 08/24/18 07:59 08/24/18 07:59 PT 12.8 SECONDS (9.7-12.2) H 08/23/18 13:10 INR 1.2 08/23/18 13:10 APTT 34.0 SECONDS (21-34) 08/23/18 13:10 - Constitutional Appears: No Acute Distress, Chronically Ill - Head Exam Head Exam: ATRAUMATIC, NORMAL INSPECTION - Eye Exam Eye Exam: EOMI, Normal appearance - Neck Exam Neck Exam: Normal Inspection. absent: Tenderness - Respiratory Exam Respiratory Exam: Clear to Ausculation Bilateral, NORMAL BREATHING PATTERN - Cardiovascular Exam Cardiovascular Exam: REGULAR RHYTHM, +S1 - GI/Abdominal Exam GI & Abdominal Exam: Soft. absent: Tenderness - Extremities Exam Extremities Exam: Normal Inspection. 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
--- NOTE | 2018-08-28 13:35 | NM ---
Date of service: 08/28/2018 PROCEDURE: Three-phase bone Scan HISTORY: MRSA bacteremia r/o OM left foot/ leg COMPARISON: 08/23/2018 radiographs bilateral ankles TECHNIQUE: Following administration of 24.5 miCu of Tc MDP multiplanar three-phase bone scan attention left ankle were obtained. FINDINGS: Flow component: Increase flow to the left lower extremity Blood pool component: Accumulation of radionuclide in the soft tissues about the left distal tibia, fibula and Delayed images at 3:00: Retention of radionuclide distal tibia, fibula, talus and calcaneus. Other findings: None. IMPRESSION: Findings consistent with severe cellulitis about the left ankle. No acute osseous abnormalities.
[2018-08-28] MEDS: (Lantus) Insulin Glargine, Recombinant SC SCH (21:18)
--- NOTE | 2018-08-28 22:33 | CP.PCM.PN ---
Subjective - Date & Time of Evaluation Date of Evaluation: 08/28/18 Time of Evaluation: 14:30 - Subjective Subjective: Patient has no complaint of leg pain. Bone scan shows no osteomyelitis. Blood and wound cultures revealed MRSA. Patient is on Vancomycin IV. Objective - Vital Signs/Intake and Output Vital Signs (last 24 hours): Temp Pulse Resp BP Pulse Ox 97.4 F L 73 20 119/61 99 08/28/18 16:15 08/28/18 16:15 08/28/18 16:15 08/28/18 16:15 08/28/18 16:15 Intake and Output: 08/28/18 08/29/18 18:59 06:59 Intake Total 600 Balance 600 - Medications Medications: Current Medications Acetaminophen (Tylenol 325mg Tab) 325 mg PO Q6 PRN PRN Reason: Pain, Mild (1-3) Amlodipine Besylate (Norvasc) 5 mg PO DAILY [facility] Last Admin: 08/28/18 09:45 Dose: 5 mg Heparin Sodium (Porcine) (Heparin) 5,000 units SC Q8 [facility] Last Admin: 08/28/18 21:17 Dose: 5,000 units Cefepime HCl 1 gm/ Dextrose 50 mls @ 100 mls/hr IVPB Q24H [facility]; Protocol Last Admin: 08/28/18 21:17 Dose: 100 mls/hr Vancomycin/Sodium Chloride (Vancomycin 1 Gm/Ns 200 Ml) 1 gm in 200 mls @ 133.333 mls/hr IVPB TTS [facility]; Protocol Last Admin: 08/26/18 09:55 Dose: 133.333 mls/hr Insulin Aspart (Novolog) 0 unit SC ACHS [facility]; Protocol Last Admin: 08/28/18 21:10 Dose: Not Given Insulin Glargine (Lantus) 16 unit SC HS [facility] Last Admin: 08/28/18 21:18 Dose: 16 unit Rosuvastatin Calcium (Crestor) 5 mg PO HS [facility] Last Admin: 08/28/18 21:17 Dose: 5 mg Sevelamer Carbonate (Renvela) 800 mg PO TIDCC [facility] Last Admin: 08/28/18 17:05 Dose: 800 mg Tamsulosin HCl (Flomax) 0.4 mg PO DAILY [facility] Last Admin: 08/28/18 09:45 Dose: 0.4 mg Vitamin B Complex/Vit C/Folic Acid (Nephro-Amita) 1 tab PO 0800 [facility] Last Admin: 08/28/18 08:30 Dose: 1 tab - Labs Labs: 08/24/18 07:59 08/24/18 07:59 PT 12.8 SECONDS (9.7-12.2) H 08/23/18 13:10 INR 1.2 08/23/18 13:10 APTT 34.0 SECONDS (21-34) 08/23/18 13:10 - Constitutional Appears: No Acute Distress, Cachectic, Chronically Ill - Head Exam Head Exam: NORMAL INSPECTION - Eye Exam Eye Exam: Normal appearance - ENT Exam ENT Exam: Normal Exam - Neck Exam Neck Exam: Normal Inspection - Respiratory Exam Respiratory Exam: Clear to Ausculation Bilateral - Cardiovascular Exam Cardiovascular Exam: REGULAR RHYTHM - GI/Abdominal Exam GI & Abdominal Exam: Soft, Normal Bowel Sounds - Rectal Exam Rectal Exam: Deferred - Extremities Exam Extremities Exam: Normal Inspection - Back Exam Back Exam: NORMAL INSPECTION - Neurological Exam Neurological Exam: Alert, Awake, Oriented x3 - Psychiatric Exam Psychiatric exam: Anxious - Skin Additional comments: Dry lower legs. Ulcerations drying. Assessment and Plan (1) Cellulitis of left lower leg Status: Acute (2) PVD (peripheral vascular disease) Status: Chronic (3) ESRD on hemodialysis Status: Chronic (4) Atrial fibrillation Assessment & Plan: Restart Eliquis Status: Chronic (5) Insulin dependent diabetes mellitus Status: Chronic
[2018-08-29] MEDS: Multivitamin Vitamin B Complex (Nephro-Vite) Tab PO SCH (08:21)
[2018-08-29] MEDS: (Novolog) Insulin Aspart, Recombinant 100 u/ml 10 ml vial SC SCH ×3 (08:21→17:17)
--- NOTE | 2018-08-29 08:36 | CP.PCM.PN ---
Subjective - Date & Time of Evaluation Date of Evaluation: 08/29/18 Time of Evaluation: 08:36 - Subjective Subjective: Podiatry progress note - Dr. Cavanaugh 73M seen and evaluated this AM for bilateral lower extremity wounds (L>R). HD in progress. Patient asleep during rounds. No acute events overnight. NAD. Objective - Vital Signs/Intake and Output Vital Signs (last 24 hours): Temp Pulse Resp BP Pulse Ox 98.1 F 74 20 119/62 95 08/29/18 07:00 08/29/18 07:00 08/29/18 07:00 08/29/18 07:00 08/29/18 07:00 Intake and Output: 08/29/18 08/29/18 06:59 18:59 Intake Total 50 Balance 50 - Medications Medications: Current Medications Acetaminophen (Tylenol 325mg Tab) 325 mg PO Q6 PRN PRN Reason: Pain, Mild (1-3) Amlodipine Besylate (Norvasc) 5 mg PO DAILY [facility] Last Admin: 08/28/18 09:45 Dose: 5 mg Apixaban (Eliquis) 2.5 mg PO BID [facility] Heparin Sodium (Porcine) (Heparin) 5,000 units SC Q8 [facility] Last Admin: 08/29/18 06:17 Dose: 5,000 units Cefepime HCl 1 gm/ Dextrose 50 mls @ 100 mls/hr IVPB Q24H [facility]; Protocol Last Admin: 08/28/18 21:17 Dose: 100 mls/hr Vancomycin/Sodium Chloride (Vancomycin 1 Gm/Ns 200 Ml) 1 gm in 200 mls @ 133.333 mls/hr IVPB TTS [facility]; Protocol Last Admin: 08/26/18 09:55 Dose: 133.333 mls/hr Insulin Aspart (Novolog) 0 unit SC ACHS [facility]; Protocol Last Admin: 08/29/18 08:21 Dose: 1 unit Insulin Glargine (Lantus) 16 unit SC HS [facility] Last Admin: 08/28/18 21:18 Dose: 16 unit Rosuvastatin Calcium (Crestor) 5 mg PO HS [facility] Last Admin: 08/28/18 21:17 Dose: 5 mg Sevelamer Carbonate (Renvela) 800 mg PO TIDCC [facility] Last Admin: 08/29/18 08:21 Dose: 800 mg Tamsulosin HCl (Flomax) 0.4 mg PO DAILY [facility] Last Admin: 08/28/18 09:45 Dose: 0.4 mg Vitamin B Complex/Vit C/Folic Acid (Nephro-Amita) 1 tab PO 0800 [facility] Last Admin: 08/29/18 08:21 Dose: 1 tab - Labs Labs: 08/24/18 07:59 08/24/18 07:59 PT 12.8 SECONDS (9.7-12.2) H 08/23/18 13:10 INR 1.2 08/23/18 13:10 APTT 34.0 SECONDS (21-34) 08/23/18 13:10 - Constitutional Appears: Non-toxic, No Acute Distress - Extremities Exam Additional comments: Lower extremity focused exam: VASC: DP/PT pulses are non-palpable at this time. Temperature gradient cool to cool from proximal to distal b/l. CFT slightly delayed, > 3 sec to all digits on the left and approx 3 sec to the right; diffuse non-pitting edema noted to the distal left LE grossly DERM: healed ulceration noted to left lateral midfoot with overlying hyperkeratotic tissue. Stage 2 pressure ulceration to left heel with thin fragile erythematous skin with no break in skin noted; Right mid leg wound measuring approx 2.5 cm x 2.0 cm with approx 80 percent fibrosis and 20 percent grannular base, no purulence, slight malodor; LLE clinically appears worst than RLE NEURO: Protective sensation slightly diminished ORTHO: No tenderness to palpation of left lower extremity ulcerations Assessment and Plan - Assessment and Plan (Free Text) Assessment: 73M with worsening multiple bilateral LE ulcerations (L>R) Plan: Patient seen and evaluated alongside attending, Dr. Cavanaugh VSS Ankle and Tib-Fib x-rays: No soft tissue emphysema, no acute changes Continue local wound care b/l LE: xerofrom, ABD, DSD Wear multipodus boots to offload decubitus ulcerations b/l Wound cultures: MRSA ID consult, IV abx as per ID - Cefepime, Vancomycin Bone scan: severe cellulitis about left ankle; no acute osseous abnormalities Vascular consult, Dr. Macias - no surgical intervention No plans for podiatric surgical intervention Stable for d/c per podiatry standpoint - follow up with Dr. Cavanaugh within 1 week Podiatry will continue to follow
--- NOTE | 2018-08-29 09:00 | CP.PCM.PN ---
Subjective - Date & Time of Evaluation Date of Evaluation: 08/29/18 Time of Evaluation: 09:00 - Subjective Subjective: usual hypotension afebrile fs better awake alert comfortable in bed just ate breakfast ROS no chills fever no chest pain no sob or cough no abd pain,n,v,,d,states abd more diatended today anuric bilateral feet pain no headache or dizziness Objective - Vital Signs/Intake and Output Vital Signs (last 24 hours): Temp Pulse Resp BP Pulse Ox 98.1 F 74 20 119/62 95 08/29/18 07:00 08/29/18 07:00 08/29/18 07:00 08/29/18 07:00 08/29/18 07:00 Intake and Output: 08/29/18 08/29/18 06:59 18:59 Intake Total 50 Balance 50 - Medications Medications: Current Medications Acetaminophen (Tylenol 325mg Tab) 325 mg PO Q6 PRN PRN Reason: Pain, Mild (1-3) Amlodipine Besylate (Norvasc) 5 mg PO DAILY [facility] Last Admin: 08/28/18 09:45 Dose: 5 mg Apixaban (Eliquis) 2.5 mg PO BID [facility] Heparin Sodium (Porcine) (Heparin) 5,000 units SC Q8 [facility] Last Admin: 08/29/18 06:17 Dose: 5,000 units Cefepime HCl 1 gm/ Dextrose 50 mls @ 100 mls/hr IVPB Q24H [facility]; Protocol Last Admin: 08/28/18 21:17 Dose: 100 mls/hr Vancomycin/Sodium Chloride (Vancomycin 1 Gm/Ns 200 Ml) 1 gm in 200 mls @ 133.333 mls/hr IVPB TTS [facility]; Protocol Last Admin: 08/26/18 09:55 Dose: 133.333 mls/hr Insulin Aspart (Novolog) 0 unit SC ACHS [facility]; Protocol Last Admin: 08/29/18 08:21 Dose: 1 unit Insulin Glargine (Lantus) 16 unit SC HS [facility] Last Admin: 08/28/18 21:18 Dose: 16 unit Rosuvastatin Calcium (Crestor) 5 mg PO HS [facility] Last Admin: 08/28/18 21:17 Dose: 5 mg Sevelamer Carbonate (Renvela) 800 mg PO TIDCC [facility] Last Admin: 08/29/18 08:21 Dose: 800 mg Tamsulosin HCl (Flomax) 0.4 mg PO DAILY [facility] Last Admin: 08/28/18 09:45 Dose: 0.4 mg Vitamin B Complex/Vit C/Folic Acid (Nephro-Amita) 1 tab PO 0800 [facility] Last Admin: 08/29/18 08:21 Dose: 1 tab - Labs Labs: 08/24/18 07:59 08/24/18 07:59 PT 12.8 SECONDS (9.7-12.2) H 08/23/18 13:10 INR 1.2 08/23/18 13:10 APTT 34.0 SECONDS (21-34) 08/23/18 13:10 - Constitutional Appears: No Acute Distress, Cachectic - Head Exam Head Exam: NORMOCEPHALIC - ENT Exam ENT Exam: Mucous Membranes Moist - Respiratory Exam Respiratory Exam: Clear to Ausculation Bilateral, NORMAL BREATHING PATTERN - Cardiovascular Exam Cardiovascular Exam: REGULAR RHYTHM, JVD - GI/Abdominal Exam GI & Abdominal Exam: Distended, Soft, Diminished Bowel Sounds. 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
[2018-08-29] MEDS: Vancomycin 1 gm/NS 200 ml 1 GM/200 ML BAG IVPB SCH ×2 (10:00→14:16)
[2018-08-29 11:30] LABS: BASO % 0.5 % (0.0-2.0); EOS # 0.1 K/uL (0.0-0.7); EOS % 2.4 % (0.0-4.0); HEMOGLOBIN 9.5 g/dL (12.0-18.0); LYMPH # 0.3 K/uL (1.0-4.3); LYMPH % 5.6 % (20.0-40.0); MEAN CORPUSCULAR HEMOGLOBIN 33.8 pg (27.0-31.0); MEAN PLATELET VOLUME 8.9 fL (7.2-11.7); MONO # 0.4 K/uL (0.0-0.8); NEUT # 4.9 K/uL (1.8-7.0); NEUT % 84.5 % (50.0-75.0); PLATELET COUNT 166 K/uL (130-400); RED CELL DISTRIBUTION WIDTH 16.3 % (11.5-14.5); WHITE BLOOD COUNT 5.8 K/uL (4.8-10.8)
[2018-08-29 11:40] LABS: MEAN CELL VOLUME 102.4 fL (80.0-94.0)
[2018-08-29 11:47] LABS: ALB/GLOB RATIO 0.6 (1.0-2.1); ALBUMIN 2.5 g/dL (3.5-5.0)
[2018-08-29 12:03] LABS: CALCIUM 7.4 mg/dl (8.6-10.4)
[2018-08-29 12:07] LABS: BANDS 1 % (0-2); EOSINOPHIL 3 % (0-4); LYMPHOCYTE 4 % (20-40); MONOCYTE 6 % (0-10); NEUTROPHIL 86 % (50-75); PLATELET ESTIMATE NORMAL (NORMAL); TOTAL CELLS COUNTED 100
[2018-08-29 12:08] LABS: ANISOCYTOSIS SLIGHT
[2018-08-29] MEDS ORDERED: Albumin Human 25% (12.5 gm/50 ml) IV ONE (12:30)
--- NOTE | 2018-08-29 12:55 | CP.PCM.PN ---
Subjective - Date & Time of Evaluation Date of Evaluation: 08/29/18 Time of Evaluation: 08:00 - Subjective Subjective: repeat blood c/s neg Objective - Vital Signs/Intake and Output Vital Signs (last 24 hours): Temp Pulse Resp BP Pulse Ox 97 F L 73 17 126/75 100 08/29/18 10:40 08/29/18 10:40 08/29/18 10:40 08/29/18 12:10 08/29/18 10:40 Intake and Output: 08/29/18 08/29/18 06:59 18:59 Intake Total 50 Balance 50 - Medications Medications: Current Medications Acetaminophen (Tylenol 325mg Tab) 325 mg PO Q6 PRN PRN Reason: Pain, Mild (1-3) Amlodipine Besylate (Norvasc) 5 mg PO DAILY [facility] Last Admin: 08/29/18 09:40 Dose: Not Given Apixaban (Eliquis) 2.5 mg PO BID [facility] Last Admin: 08/29/18 09:40 Dose: Not Given Cefepime HCl 1 gm/ Dextrose 50 mls @ 100 mls/hr IVPB Q24H [facility]; Protocol Last Admin: 08/28/18 21:17 Dose: 100 mls/hr Vancomycin/Sodium Chloride (Vancomycin 1 Gm/Ns 200 Ml) 1 gm in 200 mls @ 133.333 mls/hr IVPB TTS [facility]; Protocol Last Admin: 08/29/18 10:00 Dose: Not Given Insulin Aspart (Novolog) 0 unit SC ACHS [facility]; Protocol Last Admin: 08/29/18 11:58 Dose: Not Given Insulin Glargine (Lantus) 16 unit SC HS [facility] Last Admin: 08/28/18 21:18 Dose: 16 unit Rosuvastatin Calcium (Crestor) 5 mg PO HS [facility] Last Admin: 08/28/18 21:17 Dose: 5 mg Sevelamer Carbonate (Renvela) 800 mg PO TIDCC [facility] Last Admin: 08/29/18 11:59 Dose: Not Given Tamsulosin HCl (Flomax) 0.4 mg PO DAILY [facility] Last Admin: 08/29/18 09:40 Dose: 0.4 mg Vitamin B Complex/Vit C/Folic Acid (Nephro-Amita) 1 tab PO 0800 [facility] Last Admin: 08/29/18 08:21 Dose: 1 tab - Labs Labs: 08/29/18 11:17 08/29/18 11:17 PT 12.8 SECONDS (9.7-12.2) H 08/23/18 13:10 INR 1.2 08/23/18 13:10 APTT 34.0 SECONDS (21-34) 08/23/18 13:10 - Constitutional Appears: Non-toxic, Chronically Ill - Head Exam Head Exam: NORMOCEPHALIC - Eye Exam Eye Exam: absent: Scleral icterus - ENT Exam ENT Exam: Mucous Membranes Dry - Neck Exam Neck Exam: absent: Lymphadenopathy - Respiratory Exam Respiratory Exam: Decreased Breath Sounds - Cardiovascular Exam Cardiovascular Exam: REGULAR RHYTHM - GI/Abdominal Exam GI & Abdominal Exam: Distended - Rectal Exam Rectal Exam: Deferred - Exam Exam: NORMAL INSPECTION - Extremities Exam Extremities Exam: absent: Pedal Edema - Back Exam Back Exam: absent: CVA tenderness (L), CVA tenderness (R) - Neurological Exam Neurological Exam: Alert, Awake - Psychiatric Exam Psychiatric exam: Depressed - Skin Skin Exam: Dry Assessment and Plan (1) PVD (peripheral vascular disease) Status: Chronic (2) Cellulitis of left lower leg Status: Acute (3) Infected ulcer of skin Status: Acute (4) Non-healing open wound of heel Status: Acute (5) ESRD on hemodialysis Status: Chronic - Assessment and Plan (Free Text) Assessment: cont iv rx and wound care
[2018-08-29 16:14] VITALS: PULSE 90; RESP 20; TEMP 97.5
--- NOTE | 2018-08-29 17:35 | CP.PCM.PN ---
Subjective - Date & Time of Evaluation Date of Evaluation: 08/29/18 Time of Evaluation: 17:36 - Subjective Subjective: awake, alert, seen ine HD unit, no acute distress. Objective - Vital Signs/Intake and Output Vital Signs (last 24 hours): Temp Pulse Resp BP Pulse Ox 97.5 F L 90 20 148/60 95 08/29/18 16:00 08/29/18 16:00 08/29/18 16:00 08/29/18 14:32 08/29/18 16:00 Intake and Output: 08/29/18 08/29/18 06:59 18:59 Intake Total 50 560 Balance 50 560 - Medications Medications: Current Medications Acetaminophen (Tylenol 325mg Tab) 325 mg PO Q6 PRN PRN Reason: Pain, Mild (1-3) Amlodipine Besylate (Norvasc) 5 mg PO DAILY [facility] Last Admin: 08/29/18 09:40 Dose: Not Given Apixaban (Eliquis) 2.5 mg PO BID [facility] Last Admin: 08/29/18 17:15 Dose: 2.5 mg Cefepime HCl 1 gm/ Dextrose 50 mls @ 100 mls/hr IVPB Q24H [facility]; Protocol Last Admin: 08/28/18 21:17 Dose: 100 mls/hr Vancomycin/Sodium Chloride (Vancomycin 1 Gm/Ns 200 Ml) 1 gm in 200 mls @ 133.333 mls/hr IVPB TTS [facility]; Protocol Last Admin: 08/29/18 14:16 Dose: 133.333 mls/hr Insulin Aspart (Novolog) 0 unit SC ACHS [facility]; Protocol Last Admin: 08/29/18 17:17 Dose: Not Given Insulin Glargine (Lantus) 16 unit SC HS [facility] Last Admin: 08/28/18 21:18 Dose: 16 unit Rosuvastatin Calcium (Crestor) 5 mg PO HS [facility] Last Admin: 08/28/18 21:17 Dose: 5 mg Sevelamer Carbonate (Renvela) 800 mg PO TIDCC [facility] Last Admin: 08/29/18 17:15 Dose: 800 mg Tamsulosin HCl (Flomax) 0.4 mg PO DAILY [facility] Last Admin: 08/29/18 09:40 Dose: 0.4 mg Vitamin B Complex/Vit C/Folic Acid (Nephro-Amita) 1 tab PO 0800 [facility] Last Admin: 08/29/18 08:21 Dose: 1 tab - Labs Labs: 08/29/18 11:17 08/29/18 11:17 PT 12.8 SECONDS (9.7-12.2) H 08/23/18 13:10 INR 1.2 08/23/18 13:10 APTT 34.0 SECONDS (21-34) 08/23/18 13:10 Assessment and Plan - Assessment and Plan (Free Text) Assessment: 73 year old male admitted with sacral ulcer, seen and examined. Alert and oriented x3, no acute pain or distress. Plan to discharge to [facility] today with wound vac. Discussed with DR Watkins, agreed with the plan. bilateral LE wound care/ xeroform, ABD, DSD wear multipodous boots to both legs follow up with podiatry in 1 week continue with vancomycin 1gm ivpb after each HD X3 weeks as per DR Bailey; continue with HD , TTS as scheduled
[2018-08-29 18:16] VITALS: BP 110/61; O2SAT 98
--- NOTE | 2018-08-29 19:53 | CP.PCM.PN ---
Subjective - Date & Time of Evaluation Date of Evaluation: 08/29/18 Time of Evaluation: 14:45 - Subjective Subjective: Patient has no complaint of SOB, leg pain. Afebrile, better appetite. Blisters in both legs dry. Repeat blood cultures : no growth. Will discharge to subacute rehab on Vacomycin IV after each rehab for 3 more weeks. Objective - Vital Signs/Intake and Output Vital Signs (last 24 hours): Temp Pulse Resp BP Pulse Ox 97.5 F L 90 20 110/61 98 08/29/18 16:00 08/29/18 16:00 08/29/18 16:00 08/29/18 16:00 08/29/18 16:00 Intake and Output: 08/29/18 08/30/18 18:59 06:59 Intake Total 560 Balance 560 - Medications Medications: Current Medications Acetaminophen (Tylenol 325mg Tab) 325 mg PO Q6 PRN PRN Reason: Pain, Mild (1-3) Amlodipine Besylate (Norvasc) 5 mg PO DAILY [facility] Last Admin: 08/29/18 09:40 Dose: Not Given Apixaban (Eliquis) 2.5 mg PO BID [facility] Last Admin: 08/29/18 17:15 Dose: 2.5 mg Cefepime HCl 1 gm/ Dextrose 50 mls @ 100 mls/hr IVPB Q24H [facility]; Protocol Last Admin: 08/28/18 21:17 Dose: 100 mls/hr Vancomycin/Sodium Chloride (Vancomycin 1 Gm/Ns 200 Ml) 1 gm in 200 mls @ 133.333 mls/hr IVPB TTS [facility]; Protocol Last Admin: 08/29/18 14:16 Dose: 133.333 mls/hr Insulin Aspart (Novolog) 0 unit SC ACHS [facility]; Protocol Last Admin: 08/29/18 17:17 Dose: Not Given Insulin Glargine (Lantus) 16 unit SC HS [facility] Last Admin: 08/28/18 21:18 Dose: 16 unit Rosuvastatin Calcium (Crestor) 5 mg PO HS [facility] Last Admin: 08/28/18 21:17 Dose: 5 mg Sevelamer Carbonate (Renvela) 800 mg PO TIDCC [facility] Last Admin: 08/29/18 17:15 Dose: 800 mg Tamsulosin HCl (Flomax) 0.4 mg PO DAILY [facility] Last Admin: 08/29/18 09:40 Dose: 0.4 mg Vitamin B Complex/Vit C/Folic Acid (Nephro-Amita) 1 tab PO 0800 [facility] Last Admin: 08/29/18 08:21 Dose: 1 tab - Labs Labs: 08/29/18 11:17 08/29/18 11:17 PT 12.8 SECONDS (9.7-12.2) H 08/23/18 13:10 INR 1.2 08/23/18 13:10 APTT 34.0 SECONDS (21-34) 08/23/18 13:10 - Constitutional Appears: Well, Cachectic, Chronically Ill - Head Exam Head Exam: NORMAL INSPECTION, NORMOCEPHALIC - Eye Exam Eye Exam: Normal appearance - ENT Exam ENT Exam: Normal Exam - Neck Exam Neck Exam: Normal Inspection - Respiratory Exam Respiratory Exam: Clear to Ausculation Bilateral - Cardiovascular Exam Cardiovascular Exam: Irregular Rhythm - GI/Abdominal Exam GI & Abdominal Exam: Soft, Normal Bowel Sounds - Rectal Exam Rectal Exam: Deferred - Exam Exam: NORMAL INSPECTION - Extremities Exam Extremities Exam: Normal Inspection - Back Exam Back Exam: NORMAL INSPECTION - Neurological Exam Neurological Exam: Alert, Awake, Oriented x3 - Psychiatric Exam Psychiatric exam: Anxious - Skin Skin Exam: Dry, Warm Assessment and Plan (1) Cellulitis of left lower leg Assessment & Plan: On IV Vancomycin Status: Acute (2) PVD (peripheral vascular disease) Status: Chronic (3) ESRD on hemodialysis Assessment & Plan: On HD. Status: Chronic (4) Atrial fibrillation Assessment & Plan: Restart Eliquis 2.5 mg PO BID. Status: Chronic (5) Insulin dependent diabetes mellitus Status: Chronic (6) MRSA bacteremia Assessment & Plan: On IV Vancomycin. Status: Acute
--- NOTE | 2018-08-31 12:10 | CP.PCM.DIS ---
Provider - Provider Date of Admission: 08/23/18 15:50 Attending physician: Oz Watkins MD Primary care physician: Dr MIGUEL Hernandez. Consults: 08/23/18 14:41 Infectious Disease Consult Stat Comment: Consulting Provider: Colby Bailey Consulting Physician: Colby Bailey Reason for Consult: multiple bilateral LE wounds Vascular Surgery Stat Comment: Consulting Provider: Kulwant Macias Jr. Physician Instructions: Reason For Exam: poor circulation 08/23/18 18:33 Physician Consult Routine Comment: Consulting Provider: Jarocho Lopes Consulting Physician: Jarocho Lopes Reason for Consult: ERD on HD. 08/23/18 19:09 Wound Care [Nursing Referral for Wound Care] Routine Comment: Physician Instructions: Reason For Exam: sacral wound 08/23/18 21:05 Nursing Referral for Palliative Care Routine Comment: Physician Instructions: Reason For Exam: ESRD on HD, gangrenous left lower leg Nursing Referral for Wound Care Routine Comment: Physician Instructions: Reason For Exam: sacral decubitus ulcer 08/25/18 11:21 Physician Consult Routine Comment: Consulting Provider: Alfredo Cavanaugh Consulting Physician: Alfredo Cavanaugh Reason for Consult: cellulitis 08/28/18 14:33 Case Management Referral Routine Comment: Physician Instructions: Reason For Exam: JOY eval Reason for Referral: Discharge Planning Time Spent in preparation of Discharge (in minutes): 45 Diagnosis - Discharge Diagnosis (1) Cellulitis of left lower leg Status: Acute (2) PVD (peripheral vascular disease) Status: Chronic (3) ESRD on hemodialysis Status: Chronic (4) Atrial fibrillation Status: Chronic (5) Insulin dependent diabetes mellitus Status: Chronic (6) MRSA bacteremia Status: Acute Hospital Course - Lab Results Lab Results: Micro Results 08/28/18 07:30 Blood-During Dialysis Blood Culture - Preliminary NO GROWTH AFTER 3 DAYS 08/28/18 08:00 Blood-During Dialysis Blood Culture - Preliminary NO GROWTH AFTER 3 DAYS 08/23/18 18:39 Blood-Venous Blood Culture - Final NO GROWTH AFTER 5 DAYS 08/23/18 18:39 Blood-Venous Gram Stain - Final TEST NOT PERFORMED 08/23/18 18:39 Blood-Venous S.aureus & Coag-Neg Staph PNA FISH - Final 08/23/18 18:39 Blood-Venous Blood Culture - Final Methicillin Resistant S Aureus 08/23/18 18:39 Blood-Venous Gram Stain - Final 08/23/18 22:14 Leg - Left Gram Stain - Final 08/23/18 22:14 Leg - Left Wound Culture - Final Methicillin Resistant S Aureus Most Recent Lab Values WBC 5.8 K/uL (4.8-10.8) 08/29/18 11:17 RBC 2.80 Mil/uL (4.40-5.90) L 08/29/18 11:17 Hgb 9.5 g/dL (12.0-18.0) L 08/29/18 11:17 Hct 28.7 % (35.0-51.0) L 08/29/18 11:17 MCV 102.4 fL (80.0-94.0) H D 08/29/18 11:17 MCH 33.8 pg (27.0-31.0) H 08/29/18 11:17 MCHC 33.0 g/dL (33.0-37.0) 08/29/18 11:17 RDW 16.3 % (11.5-14.5) H 08/29/18 11:17 Plt Count 166 K/uL (130-400) 08/29/18 11:17 MPV 8.9 fL (7.2-11.7) 08/29/18 11:17 Neut % (Auto) 84.5 % (50.0-75.0) H 08/29/18 11:17 Lymph % (Auto) 5.6 % (20.0-40.0) L 08/29/18 11:17 [place] % (Auto) 7.0 % (0.0-10.0) 08/29/18 11:17 Eos % (Auto) 2.4 % (0.0-4.0) 08/29/18 11:17 Baso % (Auto) 0.5 % (0.0-2.0) 08/29/18 11:17 Neut # (Auto) 4.9 K/uL (1.8-7.0) 08/29/18 11:17 Lymph # (Auto) 0.3 K/uL (1.0-4.3) L 08/29/18 11:17 [place] # (Auto) 0.4 K/uL (0.0-0.8) 08/29/18 11:17 Eos # (Auto) 0.1 K/uL (0.0-0.7) 08/29/18 11:17 Baso # (Auto) 0.0 K/uL (0.0-0.2) 08/29/18 11:17 Neutrophils % (Manual) 86 % (50-75) H 08/29/18 11:17 Band Neutrophils % 1 % (0-2) 08/29/18 11:17 Lymphocytes % (Manual) 4 % (20-40) L 08/29/18 11:17 Monocytes % (Manual) 6 % (0-10) 08/29/18 11:17 Eosinophils % (Manual) 3 % (0-4) 08/29/18 11:17 Platelet Estimate Normal (NORMAL) 08/29/18 11:17 Hypochromasia (manual) Slight 08/24/18 07:59 Anisocytosis (manual) Slight 08/29/18 11:17 Macrocytosis (manual) Slight 08/29/18 11:17 PT 12.8 SECONDS (9.7-12.2) H 08/23/18 13:10 INR 1.2 08/23/18 13:10 APTT 34.0 SECONDS (21-34) 08/23/18 13:10 Sodium 135 mmol/L (132-148) 08/29/18 11:17 Potassium 3.6 mmol/L (3.6-5.2) 08/29/18 11:17 Chloride 95 mmol/L (98-107) L 08/29/18 11:17 Carbon Dioxide 27 mmol/L (22-30) 08/29/18 11:17 Anion Gap 17 (10-20) 08/29/18 11:17 BUN 37 mg/dL (9-20) H 08/29/18 11:17 Creatinine 3.9 mg/dL (0.8-1.5) H 08/29/18 11:17 Est GFR ( Amer) 18 08/29/18 11:17 Est GFR (Non-Af Amer) 15 08/29/18 11:17 POC Glucose (mg/dL) 149 mg/dL (65-110) H 08/29/18 16:33 Random Glucose 178 mg/dL (75-110) H D 08/29/18 11:17 Hemoglobin A1c 6.6 % (4.2-6.5) H 08/24/18 08:07 Calcium 7.4 mg/dl (8.6-10.4) L 08/29/18 11:17 Phosphorus 6.2 mg/dL (2.5-4.5) H 08/24/18 07:59 Magnesium 2.3 mg/dL (1.6-2.3) 08/24/18 07:59 Total Bilirubin 0.6 mg/dL (0.2-1.3) 08/29/18 11:17 AST 32 U/L (17-59) 08/29/18 11:17 ALT 16 U/L (21-72) L D 08/29/18 11:17 Alkaline Phosphatase 128 U/L (38-126) H 08/29/18 11:17 Total Protein 6.9 g/dL (6.3-8.3) 08/29/18 11:17 Albumin 2.5 g/dL (3.5-5.0) L 08/29/18 11:17 Globulin 4.5 gm/dL (2.2-3.9) H 08/29/18 11:17 Albumin/Globulin Ratio 0.6 (1.0-2.1) L 08/29/18 11:17 Free T4 1.60 ng/dL (0.78-2.19) 08/24/18 07:59 TSH 3rd Generation 3.92 mIU/L (0.46-4.68) 08/24/18 07:59 - Hospital Course Hospital Course: 73 years old [place] male transferred from a subacute rehabilitation Center to [facility] [place] of worsening of bilateral lower leg ulceration, increasing edema , generalized weakness and poor appetite. Patient denies and fever, chills, cough, SOB. In the MANAV, he was found to be very weak, cachectic, drowsy, with open ulceration of the left lateral malleolus, with mild purulent discharge, and pressure ulceration of the left heel, and right leg wound. WBC: 9,300 with 82.3 PMN, Hgb: 11.8 Na+: 132 K+: 4.8 BUN: 54 creatinine: 4.6 Glucose: 220 AlB: 2.9 TP: 5.6. Ankle,tibia and fibula Xray revealed bilateral arthritis. US pf the both legs revealed moderate infra-popliteal occlusion. Abdominal angiogram revealed no aortic aneurysm, diffuse plaques of the aorta and its branches, stenosis of the celiac and SMA arteries, sever stenosis of right and left SFA and patent both popliteal arteries. It also revealed anasarca with pleural effusion and ascitis. Bone scan revealed no osteomyelitis. Patient is known to have a chronic atrial fibrillation, a hypertension, a NIDDM, a hyperlipidemia, an ESRD on HD, aPAD and non healing ulcers of both feet and lower extremities. The patient received local wound care by Dr Alfredo Cavanaugh, was evaluated by Dr Asencio who advised medical treatment. He was started on IV Vancomycin and IV Cefepime. Blood and wound cultures grew MRSA. The patient improved with IV antibiotics. He felt better, stronger with better appetite. Repeated blood culture was negative, and he was discharged to the subacute rehabilitation Center on 08/29/2018 in a stable condition. He will resume all his previous medications, including Apixaban 2.5 mg PO BID and IV Vancomycin. IV following each HD session for another 3 weeks. He will continue HD as per his Nephrologists. - Date & Time of H&P Date of H&P: 08/24/18 Discharge Exam - Head Exam Head Exam: NORMOCEPHALIC - Eye Exam Eye Exam: Normal appearance Pupil Exam: NORMAL ACCOMODATION - ENT Exam ENT Exam: Normal Exam - Neck Exam Neck exam: Normal Inspection - Respiratory Exam Respiratory Exam: Clear to PA & Lateral - Cardiovascular Exam Cardiovascular Exam: Irregular Rhythm - GI/Abdominal Exam GI & Abdominal Exam: Normal Bowel Sounds, Soft - Rectal Exam Rectal Exam: Deferred - Exam Exam: NORMAL INSPECTION - Extremities Exam Additional comments: Ulceration of the left foot, and right lower leg. - Back Exam Back exam: NORMAL INSPECTION - Neurological Exam Neurological exam: Alert, Oriented x3 Additional comments: Bed bound - Psychiatric Exam Psychiatric exam: Anxious Discharge Plan - Discharge Medications Prescriptions: Vancomycin HCl in Dextrose 5 % [Vancomycin-D5w 1 Gram/100 ml] 1 gm IV TTS 21 Days plast..bag - Follow Up Plan Condition: FAIR Disposition: REHAB FACILITY/REHAB UNIT Instructions: Heart Failure, Adult (DC), Cellulitis (Skin Infection), Adult (DC), Dialysis and Diet Additional Instructions: bilateral LE wound care/ xeroform, ABD, DSD wear multipodous boots to both legs follow up with podiatry in 1 week continue with vancomycin 1gm ivpb after each HD X3 weeks as per DR Bailey; continue with HD , TTS as scheduled Referrals: Colby Bailey MD [Staff Provider] - Oz Watkins MD [Staff Provider] - Alfredo Cavanaugh DPM [Staff Provider] - Clinical Quality Measures - CQM - Heart Failure Will be discharged to: [facility] Follow Up Date (must be within 7 days from discharge): 09/05/18 Follow Up Time: 14:00 - Date & Time of Discharge Summary Date of Discharge Summary: 08/31/18 Time of Discharge Summary: 12:27
== END 2018-08-29 19:54 | DRG 871 ==
LOC: C.ER 11:37 → C.3T 15:50
PROVIDERS: ADMIT Internal Medicine Cardiovascular Disease; ATTEND Internal Medicine Cardiovascular Disease
PROC: 5A1D70Z Performance of Urinary Filtration, Intermittent, Less than 6 Hours Per Day (ICD-10-PCS; principal; 2018-08-24)
DX: A41.02 Sepsis due to Methicillin resistant Staphylococcus aureus (principal); N18.6 End stage renal disease; I13.2 Hypertensive heart and chronic kidney disease with heart failure and with stage 5 chronic kidney disease, or end stage renal disease; L03.116 Cellulitis of left lower limb; I42.9 Cardiomyopathy, unspecified; L97.929 Non-pressure chronic ulcer of unspecified part of left lower leg with unspecified severity; L97.919 Non-pressure chronic ulcer of unspecified part of right lower leg with unspecified severity; R65.20 Severe sepsis without septic shock; I50.9 Heart failure, unspecified; L89.152 Pressure ulcer of sacral region, stage 2; Z99.2 Dependence on renal dialysis; I48.2 Chronic atrial fibrillation; E78.00 Pure hypercholesterolemia, unspecified; B95.62 Methicillin resistant Staphylococcus aureus infection as the cause of diseases classified elsewhere; D64.9 Anemia, unspecified; Z79.4 Long term (current) use of insulin; E11.22 Type 2 diabetes mellitus with diabetic chronic kidney disease; E11.51 Type 2 diabetes mellitus with diabetic peripheral angiopathy without gangrene; E11.622 Type 2 diabetes mellitus with other skin ulcer; E11.21 Type 2 diabetes mellitus with diabetic nephropathy; D63.1 Anemia in chronic kidney disease

== ENCOUNTER 2018-09-06 09:34 | Emergency (ER) | payer MEDICARE, BC ==
[2018-09-06 10:02] VITALS: BMI 25.0
--- NOTE | 2018-09-06 10:25 | C.PDOC ---
History Of Present Illness 73 y/o male is brought in by ambulance from [facility] s/p fall. Patient is a bedridden dialysis patient. Reports that he leaned forward in his wheelchair and fell out, injuring his left orbital area. Patient denies LOC or other complaints. - HPI Time Seen by Provider: 09/06/18 09:54 Chief Complaint (Nursing): Trauma History Per: Patient, EMS History/Exam Limitations: no limitations Injury Occurred (Timing): Just Before Arrival Location Of Injury: Left: Face (left orbital area) Past Medical History Reviewed: Historical Data, Nursing Documentation, Vital Signs Vital Signs: Last Vital Signs Temp 97.7 F 09/06/18 09:39 Pulse 72 09/06/18 09:39 Resp 20 09/06/18 09:39 BP 104/61 09/06/18 09:39 Pulse Ox 93 L 09/06/18 09:39 Primary Care Provider: Mia Carpenter - Medical History PMH: Arthritis, Cardia Arrhythmia (A FIB/FLUTTER), CHF, Diabetes, HTN, Hypercholesterolemia, Chronic Kidney Disease Denies: CVA - [facility] Procedures (08/23/18) EXCISION OF LEFT FOOT SKIN, EXTERNAL APPROACH (08/22/17) EXCISION OF LEFT METATARSAL, OPEN APPROACH, DIAGNOSTIC (08/22/17) FLUOROSCOPY OF AORTA, BI LE ART USING L OSM CONTRAST (05/03/18) REPLACE L FOOT SKIN W AUTOL SUB, FULL THICK, [employer]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 Constitutional: Negative for: Fever, Chills Eyes: Positive for: Other (left orbital pain). Negative for: Vision Change Gastrointestinal: Negative for: Vomiting Neurological: Negative for: Headache, Dizziness, Other (LOC) Physical Exam - Physical Exam Appears: Non-toxic, No Acute Distress Skin: Warm, Dry Head: Normacephalic, Swelling (left orbital area) Eye(s): bilateral: PERRL, EOMI, left: Other (left eye swollen , subconjunctival hematoma) Oral Mucosa: Moist Neck: Normal, No Midline Cervical Tenderness, Supple Cardiovascular: Rhythm Regular Respiratory: Normal Breath Sounds Gastrointestinal/Abdominal: Normal Exam Extremity: Normal ROM, Other (has skin tears on both lower extremities) Extremity: Bilateral: Normal ROM Neurological/Psych: Oriented x3, Normal Speech, Normal Cognition, Normal Motor ED Course And Treatment O2 Sat by Pulse Oximetry: 93 (RA) Pulse Ox Interpretation: Abnormal - CT Scan/US Orbits CT Other Rad Studies (CT/US): Read By Radiologist, Radiology Report Reviewed CT/US Interpretation: FINDINGS: RIGHT ORBIT: RIGHT BONY ORBIT: Normal. RIGHT INTRAORBITAL STRUCTURES: Globe: Normal. Extraocular muscles: Normal. Post septal space: Normal. Optic Nerve: Normal. Lacrimal Apparatus: Normal. RIGHT PRESEPTAL SOFT TISSUES: Normal. LEFT ORBIT: LEFT BONY ORBIT: Normal. LEFT INTRAORBITAL STRUCTURES: Globe: Normal. Extraocular muscles: Normal. Post septal space: Normal. Optic Nerve: Normal. . Lacrimal Apparatus: Normal. LEFT PRESEPTAL SOFT TISSUES: Large left periorbital soft tissue hematoma. OTHER: There is an age indeterminate nondisplaced fracture in the lateral wall of the left maxilla also extending into the maxillary alveolus. There is high attenuation fluid in the left maxillary sinus. There is scattered mucoperiosteal thickening in the ethmoid air cells. IMPRESSION: 1. No acute orbital fracture or acute orbital injury. Large left periorbital soft tissue hematoma. 2. Age indeterminate nondisplaced fracture in the left posterior lateral maxilla. High attenuation fluid in the left maxillary sinus which could represent chronic secretions versus hemorrhagic products. 3. Chronic left maxillary and ethmoid sinusitis. Head CT Other Rad Studies (CT/US): Read By Radiologist, Radiology Report Reviewed CT/US Interpretation: FINDINGS: HEMORRHAGE: No intracranial hemorrhage. BRAIN: There is a large chronic lacunar infarction in the right caudate head and basal ganglia with volume loss and ex vacuo dilatation of the right frontal horn. There are moderate chronic microangiopathic changes. There is no mass, mass effect or abnormal extra-axial fluid collection. VENTRICLES: There is mild age-related global parenchymal volume loss and proportionate enlargement of the ventricles and cortical sulci. CALVARIUM: There is no calvarial fracture. There is a large left frontal scalp and periorbital soft tissue hematoma. PARANASAL SINUSES: Predominantly clear. MASTOID AIR CELLS: Bilateral mastoid air cells are underdeveloped, worse on the right. OTHER FINDINGS: None. IMPRESSION: No acute intracranial abnormality. Large left frontal scalp and periorbital soft tissue hematoma. Chronic lacunar infarction in the right caudate head and basal ganglia, moderate chronic microangiopathic changes and mild age-related global parenchymal volume loss. Cervical Spine CT Other Rad Studies (CT/US): Read By Radiologist, Radiology Report Reviewed CT/US Interpretation: FINDINGS: VERTEBRAE: The vertebral bodies are maintained in height. There is grade 1 retrolisthesis at C5-6 in association with severe degenerative disc disease. The atlantoaxial articulation and odontoid process are intact. There is moderate central spinal stenosis at the level of the retrolisthesis at C5-6. No spinal stenosis is seen elsewhere. DISCS/SPINAL CANAL/NEURAL FORAMINA: There is severe loss in height of the C5-6 intervertebral disc space with irregular contour of the vertebral endplates about the C5-6 disc space. Osteophytes are seen anteriorly and posteriorly about the affected disc space. There is irregularity of vertebral endplates about the C5-6 disc space. The remaining disc spaces are maintained in height. PARASPINAL SOFT TISSUES: Unremarkable. OTHER FINDINGS: Bilateral pleural effusions, right greater than left. IMPRESSION: No fracture. Grade 1 retroli sthesis at C5-6 associated with degenerative disc disease. Incidental bilateral pleural effusion, right greater than left. No other significant abnormality. Progress Note: CT scan ordered. In no distress. Tolerating PO. Awaiting transport to [facility] Reassessment Condition: Improved Medical Decision Making Medical Decision Making: Plan: --Cervical Spine CT --Head CT --Orbits/facials CT Disposition Counseled Patient/Family Regarding: Studies Performed, Diagnosis, Need For Followup - Disposition Referrals: Mia Carpenter MD [Staff Provider] - Disposition: TRANSF TO SNF Disposition Time: 12:45 Condition: STABLE Additional Instructions: Cool compresses to affected area Instructions: Preventing Falls, Minor Head Injury Forms: [facility] ([place]) - POA Present On Arrival: None - Clinical Impression Clinical Impression: Contusion, Head injury - PA / SKILL TRAINING PROGRAM COORDINATOR / Resident Statement MD/DO has reviewed & agrees with the documentation as recorded. - Scribe Statement The provider has reviewed the documentation as recorded by the Scribe Lelia Sahu All medical record entries made by the Scribe were at my direction and personally dictated by me. I have reviewed the chart and agree that the record accurately reflects my personal performance of the history, physical exam, medical decision making, and the department course for this patient. I have also personally directed, reviewed, and agree with the discharge instructions and disposition.
--- NOTE | 2018-09-06 11:12 | CT ---
Date of service: 09/06/2018 PROCEDURE: CT HEAD WITHOUT CONTRAST. HISTORY: trauma COMPARISON: 01/10/2018 TECHNIQUE: Axial computed tomography images were obtained through the head/brain without intravenous contrast. Radiation dose: Total exam DLP = 1610.93 mGy-cm. This CT exam was performed using one or more of the following dose reduction techniques: Automated exposure control, adjustment of the mA and/or kV according to patient size, and/or use of iterative reconstruction technique. FINDINGS: HEMORRHAGE: No intracranial hemorrhage. BRAIN: There is a large chronic lacunar infarction in the right caudate head and basal ganglia with volume loss and ex vacuo dilatation of the right frontal horn. There are moderate chronic microangiopathic changes. There is no mass, mass effect or abnormal extra-axial fluid collection. VENTRICLES: There is mild age-related global parenchymal volume loss and proportionate enlargement of the ventricles and cortical sulci. CALVARIUM: There is no calvarial fracture. There is a large left frontal scalp and periorbital soft tissue hematoma. PARANASAL SINUSES: Predominantly clear. MASTOID AIR CELLS: Bilateral mastoid air cells are underdeveloped, worse on the right. OTHER FINDINGS: None. IMPRESSION: No acute intracranial abnormality. Large left frontal scalp and periorbital soft tissue hematoma. Chronic lacunar infarction in the right caudate head and basal ganglia, moderate chronic microangiopathic changes and mild age-related global parenchymal volume loss.
--- NOTE | 2018-09-06 11:26 | CT ---
Date of service: 09/06/2018 PROCEDURE: CT ORBITS WITHOUT CONTRAST. HISTORY: trauma COMPARISON: None available. TECHNIQUE: Axial CT images of the orbits were obtained. Coronal and sagittal reformats were generated. Radiation dose: Total exam DLP = 799.19 mGy-cm. This CT exam was performed using one or more of the following dose reduction techniques: Automated exposure control, adjustment of the mA and/or kV according to patient size, and/or use of iterative reconstruction technique. FINDINGS: RIGHT ORBIT: RIGHT BONY ORBIT: Normal. RIGHT INTRAORBITAL STRUCTURES: Globe: Normal. Extraocular muscles: Normal. Post septal space: Normal. Optic Nerve: Normal. Lacrimal Apparatus: Normal. RIGHT PRESEPTAL SOFT TISSUES: Normal. LEFT ORBIT: LEFT BONY ORBIT: Normal. LEFT INTRAORBITAL STRUCTURES: Globe: Normal. Extraocular muscles: Normal. Post septal space: Normal Optic Nerve: Normal. . Lacrimal Apparatus: Normal. LEFT PRESEPTAL SOFT TISSUES: Large left periorbital soft tissue hematoma. OTHER: There is an age indeterminate nondisplaced fracture in the lateral wall of the left maxilla also extending into the maxillary alveolus. There is high attenuation fluid in the left maxillary sinus. There is scattered mucoperiosteal thickening in the ethmoid air cells. IMPRESSION: 1. No acute orbital fracture or acute orbital injury. Large left periorbital soft tissue hematoma. 2. Age indeterminate nondisplaced fracture in the left posterior lateral maxilla. High attenuation fluid in the left maxillary sinus which could represent chronic secretions versus hemorrhagic products. 3. Chronic left maxillary and ethmoid sinusitis.
--- NOTE | 2018-09-06 12:08 | CT ---
Date of service: 09/06/2018 PROCEDURE: CT Cervical Spine without contrast HISTORY: trauma COMPARISON: Not available TECHNIQUE: Axial computed tomography images were obtained of the cervical spine without the use of intravenous contrast. Coronal and sagittal reformatted images were created and reviewed. Radiation dose: Total exam DLP = 422.17 mGy-cm. This CT exam was performed using one or more of the following dose reduction techniques: Automated exposure control, adjustment of the mA and/or kV according to patient size, and/or use of iterative reconstruction technique. FINDINGS: VERTEBRAE: The vertebral bodies are maintained in height. There is grade 1 retrolisthesis at C5-6 in association with severe degenerative disc disease. The atlantoaxial articulation and odontoid process are intact. There is moderate central spinal stenosis at the level of the retrolisthesis at C5-6. No spinal stenosis is seen elsewhere. DISCS/SPINAL CANAL/NEURAL FORAMINA: There is severe loss in height of the C5-6 intervertebral disc space with irregular contour of the vertebral endplates about the C5-6 disc space. Osteophytes are seen anteriorly and posteriorly about the affected disc space. There is irregularity of vertebral endplates about the C5-6 disc space. The remaining disc spaces are maintained in height. PARASPINAL SOFT TISSUES: Unremarkable. OTHER FINDINGS: Bilateral pleural effusions, right greater than left. IMPRESSION: No fracture. Grade 1 retrolisthesis at C5-6 associated with degenerative disc disease. Incidental bilateral pleural effusion, right greater than left. No other significant abnormality.
[2018-09-06 18:09] VITALS: BP 127/63; PULSE 67; RESP 16; TEMP 98; O2SAT 98
== END 2018-09-06 18:10 ==
LOC: C.ER 09:34
DX: S05.12XA Contusion of eyeball and orbital tissues, left eye, initial encounter (principal); S09.90XA Unspecified injury of head, initial encounter; W05.0XXA Fall from non-moving wheelchair, initial encounter; Y92.129 Unspecified place in nursing home as the place of occurrence of the external cause

== ENCOUNTER 2018-09-07 18:55 | Inpatient (IN) | payer MEDICARE, BC ==
[2018-09-07 18:56] VITALS: BMI 25.0
[2018-09-07 19:54] LABS: BASO % 0.4 % (0.0-2.0); EOS # 0.1 K/uL (0.0-0.7); EOS % 1.1 % (0.0-4.0); HEMOGLOBIN 10.7 g/dL (12.0-18.0); LYMPH # 0.4 K/uL (1.0-4.3); LYMPH % 5.7 % (20.0-40.0); MEAN CELL VOLUME 100.9 fL (80.0-94.0); MEAN CORPUSCULAR HEMOGLOBIN 33.1 pg (27.0-31.0); MEAN CORPUSCULAR HGB CONC 32.8 g/dL (33.0-37.0); MEAN PLATELET VOLUME 9.2 fL (7.2-11.7); MONO # 0.4 K/uL (0.0-0.8); MONO % 5.9 % (0.0-10.0); NEUT # 6.6 K/uL (1.8-7.0); NEUT % 86.9 % (50.0-75.0); NRBC % 0.1 % (0.0-2.0); PLATELET COUNT 176 K/uL (130-400); RBC 3.23 Mil/uL (4.40-5.90); RED CELL DISTRIBUTION WIDTH 17.1 % (11.5-14.5); WHITE BLOOD COUNT 7.6 K/uL (4.8-10.8)
[2018-09-07 19:59] LABS: VENOUS BLOOD GAS BASE EXCESS 2.8 mmol/L (0.0-2.0); VENOUS BLOOD GAS PCO2 67 mmHg (40-60); VENOUS BLOOD GAS PO2 25 mm/Hg (30-55); VENOUS BLOOD PH 7.28 (7.32-7.43)
[2018-09-07 20:03] LABS: INR 1.3; PARTIAL THROMBOPLASTIN TIME 45.6 SECONDS (21-34); PROTHROMBIN TIME 14.2 SECONDS (9.7-12.2)
--- NOTE | 2018-09-07 20:10 | C.PDOC ---
History Of Present Illness 73 year old male [facility] for evaluation of dizziness/lightheadedness that started today and hypotension (BP 90s/50s). Patient did not get hemodialysis today because of his low blood pressure. He was seen here in our ED yesterday for a head injury; patient is not ambulatory, states he was in his wheelchair and leaned forward, sustained injuries to face/head. Patient is currently on Eliquis for atrial fibrillation; had CT head that was negative for bleed, CT orbits showed no acute orbital fracture and age indeterminate nondisplaced fracture of the left maxilla. Patient denies chest pain, SOB, palpitations, neck pain, visual changes, facial droop, slurred speech, fever/chills. PMHx: DM II, HTN, atrial fibrillation, CHF, ESRD on HD Time Seen by Provider: 09/07/18 19:07 Chief Complaint (Nursing): Dizziness/Lightheaded History Per: Patient History/Exam Limitations: no limitations Onset/Duration Of Symptoms: Hrs Current Symptoms Are (Timing): Still Present Seizure Or Post-ictal Symptoms: None Recent travel outside of the [place]: No - Symptoms Of CVA Associated Symptoms: denies: Impaired Speech, Seizure Activity, New Vision Deficit(Left), New Vision Deficit(Right), Decreased Ability To Walk, New Confusion Past Medical History Reviewed: Historical Data, Nursing Documentation, Vital Signs Vital Signs: Last Vital Signs Temp 97.7 F 09/07/18 18:58 Pulse 81 09/07/18 18:58 Resp 18 09/07/18 18:58 BP 99/55 L 09/07/18 18:58 Pulse Ox 94 L 09/07/18 18:58 Primary Care Provider: Mia Carpenter - Medical History PMH: Arthritis, Cardia Arrhythmia (A FIB/FLUTTER), CHF, Diabetes, HTN, Hypercholesterolemia, Chronic Kidney Disease - [facility] Procedures (08/23/18) EXCISION OF LEFT FOOT SKIN, EXTERNAL APPROACH (08/22/17) EXCISION OF LEFT METATARSAL, OPEN APPROACH, DIAGNOSTIC (08/22/17) FLUOROSCOPY OF AORTA, BI LE ART USING L OSM CONTRAST (05/03/18) REPLACE L FOOT SKIN W AUTOL SUB, 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 Negative for: Chest Pain, Palpitations Respiratory: Negative for: Cough, Shortness of Breath Gastrointestinal: Negative for: Nausea, Vomiting, Abdominal Pain, Diarrhea Skin: Negative for: Rash Neurological: Positive for: Dizziness. Negative for: Weakness, Numbness, Confusion, Seizures, Headache Physical Exam - Physical Exam Appears: Well, Non-toxic, No Acute Distress, Chronically Ill Skin: Warm, Dry, Ecchymosis (periorbital (L>R)), Other (B/L LEs with multiple necrotic appearing ulcerations (on feet/lower legs)) Head: Normacephalic, Swelling (Moderate left periorbital) Eye(s): bilateral: PERRL, EOMI, Other (Raccoon eyes B/L ) Ear(s): Bilateral: Normal ((-) Hemotympanum) Nose: Normal, No Epistaxis, No Deformity, No Tenderness, No Other (Nasal injury) Oral Mucosa: Moist, No Other (Intraoral injury) Neck: Normal, No Midline Cervical Tenderness, No Paracervical Tenderness, No Step Off Deformity, Supple Chest: Symmetrical, No Tenderness Cardiovascular: Rhythm Regular Respiratory: Normal Breath Sounds, No Rales, No Rhonchi, No Wheezing Gastrointestinal/Abdominal: Bowel Sounds, Soft, No Tenderness, Distention, A scites Extremity: Other (Bilateral lower legs and ankles wrapped due to wounds. Right arm av fistula with palpable thrill.) Pulses: Left Dorsalis Pedis: Normal, Right Dorsalis Pedis: Normal Neurological/Psych: Oriented x3, Normal Speech, Normal Cognition ED Course And Treatment - Laboratory Results Result Diagrams: 09/13/18 04:53 09/13/18 04:53 Lab Results: pO2 25 mm/Hg (30-55) L 09/07/18 19:55 VBG pH 7.28 (7.32-7.43) L 09/07/18 19:55 VBG pCO2 67 mmHg (40-60) H* 09/07/18 19:55 VBG HCO3 25.5 mmol/L 09/07/18 19:55 VBG Total CO2 33.6 mmol/L (22-28) H 09/07/18 19:55 VBG O2 Sat (Calc) 29.4 % (40-65) L 09/07/18 19:55 VBG Base Excess 2.8 mmol/L (0.0-2.0) H 09/07/18 19:55 VBG Potassium 3.6 mmol/L (3.6-5.2) 09/07/18 19:55 Sodium 132.0 mmol/l (132-148) 09/07/18 19:55 Chloride 96.0 mmol/L (98-107) L 09/07/18 19:55 Glucose 38 mg/dl (75-110) L* 09/07/18 19:55 Lactate 1.3 mmol/L (0.7-2.1) 09/07/18 19:55 Crit Value Called To Aiden mathew do 09/07/18 19:55 Crit Value Called By Caleb mosqueda sap bpc developer 09/07/18 19:55 Crit Value Read Back Y 09/07/18 19:55 Blood Gas Notified Time 195809/07/18 19:55 PT 14.2 SECONDS (9.7-12.2) H 09/07/18 19:47 INR 1.3 09/07/18 19:47 APTT 45.6 SECONDS (21-34) H 09/07/18 19:47 ECG: Interpreted By Me, Viewed By Me (atrial fibrillation 77bpm, normal axis, low voltage QRS, T wave inversion V2, no acute ST changes) ECG Interpretation: Abnormal O2 Sat by Pulse Oximetry: 94 (Room air) Pulse Ox Interpretation: Normal - Radiology CXR: Interpreted by Me, Viewed By Me (right sided effusion vs infiltrate ) - CT Scan/US CT ABD/PELVIS Other Rad Studies (CT/US): Read By Radiologist, Radiology Report Reviewed CT/US Interpretation: PRELIMINARY REPORT [facility]. [address] [place] [address]. [place] [id number]. Phone: [phone]. . Report Submission Date: September 07, 2018 11:57:43 PM EDT. Name:MILO SUAZO Exam Date:September 07, 2018 10:46:39 PM EDT. Modality Type:CT. Description:CT - ABDOMEN AND PELVIS WITH CORONAL AND SAGITTAL MPRS. Gender:M Laterality:Not applicable. :43 Referring Physician:SUKHDEV MATHEW MD. EXAM: CT Abdomen and Pelvis without IV contrast. CLINICAL HISTORY: Abd pain/distention. TECHNIQUE: Axial computed tomography images of the abdomen and pelvis without intravenous contrast. 0.00 mGy-cm. CONTRAST: Without. COMPARISON: Reference is made to the report of a prior outside [facility] study dated May 05, 2018. Images are not available for comparison. FINDINGS: LUNG BASES: The heart is moderately enlarged. There are moderately large right pleural effusion and small to moderate left pleural effusion partially imaged at the lung bases, with associated compressive atelectasis of the lower lobes. D ifficult to exclude superimposed pneumonia in the lower lobes. LIVER: Liver demonstrates a cirrhotic configuration without focal lesions identified. GALLBLADDER AND BILE DUCTS: Radiodense sludge is seen within the gallbladder. PANCREAS: The pancreas is somewhat atrophic. SPLEEN: The spleen is diminutive in size. ADRENAL GLANDS: Unremarkable. KIDNEYS, URETERS, AND BLADDER: The kidneys are diminutive in size. STOMACH AND BOWEL: The stomach is moderately distended with debris. No evidence for bowel obstruction. Mild constipation the proximal colon. 1.3 cm cystic area is seen near the 2nd and 3rd duodenum. This is appreciable on series 2, image 44. This could represent duodenal diverticulum. Other etiologies are not excluded. Please correlate clinically and if indicated followup could be obtained. APPENDIX: No evidence of acute appendicitis on CT examination. PERITONEUM: There is extensive abdominal and pelvic ascites and diffuse anasarca. This limits evaluation particularly in the absence of oral and IV contrast. LYMPH NODES: No lymphadenopathy is evident. REPRODUCTIVE: Unremarkable as visualized. VASCULATURE: There is extensive coronary artery calcification. Extensive atherosclerotic calcification of the abdominal aorta and branches is noted. BONES: Moderate multilevel degenerative spine changes are present. MISCELLANEOUS: Comparison is made with report of an outside CT dated May 05, 2018. The images are not available for comparison. IMPRESSION: 2. There is extensive coronary artery calcification. 3. The heart is moderately enlarged. 4. There are moderately large right pleural effusion and small to moderate left pleural effusion partially imaged at the lung bases, with associated compressive atelectasis of the lower lobes. Difficult to exclude superimposed pneumonia in the lower lobes. 5. There is extensive abdominal and pelvic ascites and diffuse anasarca. This limits evaluation particularly in the absence of oral and IV contrast. 6. Liver demonstrates a cirrhotic configuration without focal lesions identified. 7. Radiodense sludge is seen within the gallbladder. 8. The spleen is diminutive in size. 9. The pancreas is somewhat atrophic. 10. The kidneys are diminutive in size. 11. The stomach is moderately distended with debris. 12. No evidence for bowel obstruction. 13. Mild constipation the proximal colon. 14. 1.3 cm cystic area is seen near the 2nd and 3rd duodenum. This is appreciable on series 2, image 44. This could represent duodenal diverticulum. Other etiologies are not excluded. Please correlate clinically and if indicated followup could be obtained. 15. Moderate multilevel degenerative spine changes are present. 16. Extensive atherosclerotic calcification of the abdominal aorta and branches is noted. . Electronically signed on September 07, 2018 11:57:43 PM EDT by: Mick Norman M.D., Certified by [facility], Diagnostic Radiology Progress Note: Blood work, CT head, CT abd/pelvis, CXR ordered and reviewed. Patient hypogylcemic - given PO juice and food. Repeat accuchecks continued to show hypoglyemia - D50 amp given, IV glucagon given. Small IV NS bolus given for hypotension. CXR shows pleural effusions. CT scan confirms effusion, unable to r/o pneumonia - IV Vanco + IV zosyn given. 12:30- Patient will get ICU eval. 12:55am- Patient accepted for ICU admission by field rep Dr. Martinez Guadarrama. - Physician Consult Information Physician Contacted: Mia Carpenter Outcome Of Conversation: Discussed patient with PMD, aware of patient being admitted to his service for hypotension, hypoglycemia, pleural effusions, ascites/anasarca. Critical Care Time - Critical Care Note Total Time (in mins): 50 Documented critical care: time excludes all time spent performing seperately billable procedures. Disposition - Disposition Disposition: HOSPITALIZED Disposition Time: 00:59 Condition: GUARDED - Clinical Impression Clinical Impression: Ascites, Anasarca, Hypotension, Hypoglycemia, Pleural effusion - Scribe Statement The provider has reviewed the documentation as recorded by the Scribe Colby Hoover All medical record entries made by the Scribe were at my direction and personally dictated by me. I have reviewed the chart and agree that the record accurately reflects my personal performance of the history, physical exam, medical decision making, and the department course for this patient. I have also personally directed, reviewed, and agree with the discharge instructions and disposition.
[2018-09-07 20:15] LABS: ALB/GLOB RATIO 0.6 (1.0-2.1); ALBUMIN 2.9 g/dL (3.5-5.0); CALCIUM 7.7 mg/dl (8.6-10.4)
[2018-09-07 20:16] LABS: CK-MB 6.26 ng/mL (0.0-3.38); TROPONIN I 0.012 ng/mL (0.00-0.120)
[2018-09-07] MEDS ORDERED: Dextrose 50% SYRINGE Inj (50 ml) IVP STA (21:32)
[2018-09-07] MEDS ORDERED: Dextrose 50% SYRINGE Inj (50 ml) ONE (21:38)
[2018-09-07] MEDS ORDERED: Glucagon Recombinant 1 mg Inj IVPB STA (21:52)
[2018-09-07] MEDS ORDERED: Glucagon Recombinant 1 mg Inj ONE (22:39)
[2018-09-07] MEDS ORDERED: Dextrose 5%/0.9% NS 1,000 ML IV ONE (22:41)
[2018-09-07 22:49] LABS: ANISOCYTOSIS SLIGHT; BANDS 1 % (0-2); EOSINOPHIL 1 % (0-4); LYMPHOCYTE 6 % (20-40); MONOCYTE 3 % (0-10); NEUTROPHIL 89 % (50-75); TOTAL CELLS COUNTED 100
[2018-09-07 22:53] LABS: PLATELET ESTIMATE NORMAL (NORMAL)
[2018-09-07] MEDS ORDERED: Sodium Chloride 0.9% 250 ML IV ONE (23:24)
[2018-09-08] MEDS ORDERED: Vancomycin 1 GM 1 GM/250 ML BAG IV STA (00:10)
[2018-09-08] MEDS ORDERED: Piperacillin/Tazobact 3.375 gm 100 ML IVPB STA (00:10)
[2018-09-08] MEDS ORDERED: Albumin Human 25% (12.5 gm/50 ml) IV ONE (00:41)
[2018-09-08] MEDS ORDERED: Gentamicin 80 mg/2mL Inj. IVPB ONE (00:59)
--- NOTE | 2018-09-08 01:04 | CP.PCM.CON ---
History of Present Illness - History of Present Illness History of Present Illness: 73 y/o male with pmx of PAD, Dm, CHF, HTN, ESRD on HD, Chronic A-fib on AC(eliquis) presents to [facility] with c/o low BP. NO HD done today. Patient c/o distended abdomen, denies any fevers, denies any SOB, vadim any chest pain, no leg swelling PMH: DM, HTN, ESRD, CHF, PAD, Afib, HLD PSH: AV fistula, cataract surgery, multiple wound debridements with skin grafts to left ankle and foot ulcers SH: No tobacco, EtOH, or drug use. FH: Non contributory All: NKDA Review of Systems All systems: reviewed and no additional remarkable complaints except (as per HPI) Review of Systems - Review of Systems All systems: reviewed and no additional remarkable complaints except Review of Systems: see HPI (+)abdomen distended Past Patient History - Infectious Disease Hx of Infectious Diseases: None - Tetanus Immunizations Tetanus Immunization: Unknown - Past Medical History & Family History Past Medical History?: Yes - Past Social History Smoking Status: Never Smoked - CARDIAC Hx Cardia Arrhythmia: Yes (A FIB/FLUTTER) Hx Congestive Heart Failure: Yes Hx Hypercholesterolemia: Yes Hx Hypertension: Yes - PULMONARY Hx Respiratory Disorders: No - NEUROLOGICAL Hx Neurological Disorder: No - HEENT Hx HEENT Problems: Yes Hx Cataracts: Yes (BILAT.) - RENAL Hx Chronic Kidney Disease: Yes - ENDOCRINE/METABOLIC Hx Diabetes Mellitus Type 1: Yes - HEMATOLOGICAL/ONCOLOGICAL Hx Blood Disorders: Yes Hx Blood Transfusions: Yes - INTEGUMENTARY Hx Dermatological Problems: No - MUSCULOSKELETAL/RHEUMATOLOGICAL Hx Arthritis: Yes - GASTROINTESTINAL Hx Gastrointestinal Disorders: Yes Other/Comment: BLOOD IN STOOL - GENITOURINARY/GYNECOLOGICAL Hx Genitourinary Disorders: Yes Hx Hematuria: Yes Hx Prostate Problems: Yes Hx Urinary Tract Infection: Yes - PSYCHIATRIC Hx Substance Use: No - SURGICAL HISTORY Hx Surgeries: Yes Hx Arteriovenous Shunt: Yes (AV FISTULA RIGHT ARM) Hx Cataract Extraction: Yes (BILAT.) Hx Eye Surgery: Yes (LEFT EYE) Other/Comment: SKIN GRAFT LEFT FOOT - ANESTHESIA Hx Anesthesia: Yes Hx Anesthesia Reactions: No Hx Malignant Hyperthermia: No Meds Allergies/Adverse Reactions: Allergies Allergy/AdvReac Type Severity Reaction Status Date / Time No Known Allergies Allergy Verified 09/07/18 19:02 - Medications Medications: Current Medications Gentamicin Sulfate (Gentamicin) 130 mg 2.5 mg/kg (130 mg) IVPB ONCE ONE; Protocol Stop: 09/08/18 01:00 Dextrose/Sodium Chloride (Dextrose 5%-0.9% Ns 500 Ml) 500 mls @ 100 mls/hr IV .Q5H ONE Stop: 09/08/18 02:51 Last Admin: 09/07/18 23:05 Dose: 100 mls/hr Vancomycin HCl (Vancomycin 1gm In Normal Saline Addvantage) 1 gm in 250 mls @ 166.667 mls/hr IV STAT STA; Protocol Stop: 09/08/18 01:39 Physical Exam - Head Exam Head Exam: ATRAUMATIC, NORMAL INSPECTION, NORMOCEPHALIC - ENT Exam ENT Exam: Mucous Membranes Moist - Respiratory Exam Respiratory Exam: Decreased Breath Sounds, Clear to Auscultation Bilateral. absent: Rhonchi - GI/Abdominal Exam GI & Abdominal Exam: Distended, Normal Bowel Sounds, Soft. absent: Guarding, Hernia, Rebound, Rigid, Tenderness - Extremities Exam Extremities exam: Positive for: tenderness Additional comments: multpile small ski nwouns at various stanges of healing Results - Vital Signs Recent Vital Signs: Last Vital Signs Temp 97.4 F L 09/07/18 22:29 Pulse 75 09/07/18 22:29 Resp 15 09/07/18 22:29 BP 108/68 09/07/18 22:29 Pulse Ox 94 L 09/08/18 00:33 - Labs Result Diagrams: 09/08/18 06:02 09/08/18 06:02 Labs: Laboratory Results - last 24 hr 09/07/18 09/07/18 09/07/18 19:47 19:47 19:47 WBC 7.6 RBC 3.23 L Hgb 10.7 L Hct 32.6 L MCV 100.9 H MCH 33.1 H MCHC 32.8 L RDW 17.1 H Plt Count 176 MPV 9.2 Neut % (Auto) 86.9 H Lymph % (Auto) 5.7 L [place] % (Auto) 5.9 Eos % (Auto) 1.1 Baso % (Auto) 0.4 Neut # (Auto) 6.6 Lymph # (Auto) 0.4 L [place] # (Auto) 0.4 Eos # (Auto) 0.1 Baso # (Auto) 0.0 Neutrophils % (Manual) 89 H Band Neutrophils % 1 Lymphocytes % (Manual) 6 L Monocytes % (Manual) 3 Eosinophils % (Manual) 1 Platelet Estimate Normal Anisocytosis (manual) Slight PT 14.2 H INR 1.3 APTT 45.6 H pO2 VBG pH VBG pCO2 VBG HCO3 VBG Total CO2 VBG O2 Sat (Calc) VBG Base Excess VBG Potassium Glucose Lactate Crit Value Called To Crit Value Called By Crit Value Read Back Blood Gas Notified Time Sodium 134 Potassium 3.8 Chloride 94 L Carbon Dioxide 29 Anion Gap 15 BUN 53 H Creatinine 5.0 H Est GFR ( Amer) 14 Est GFR (Non-Af Amer) 11 POC Glucose (mg/dL) Random Glucose 41 L D Calcium 7.7 L Total Bilirubin 0.7 AST 42 ALT 14 L Alkaline Phosphatase 133 H Total Creatine Kinase 127 CK-MB (Mass) 6.26 H Troponin I 0.0120 Total Protein 8.0 Albumin 2.9 L Globulin 5.1 H Albumin/Globulin Ratio 0.6 L TSH 3rd Generation Venous Blood Potassium 09/07/18 09/07/18 09/07/18 19:47 19:55 20:43 WBC RBC Hgb Hct MCV MCH MCHC RDW Plt Count MPV Neut % (Auto) Lymph % (Auto) [place] % (Auto) Eos % (Auto) Baso % (Auto) Neut # (Auto) Lymph # (Auto) [place] # (Auto) Eos # (Auto) Baso # (Auto) Neutrophils % (Manual) Band Neutrophils % Lymphocytes % (Manual) Monocytes % (Manual) Eosinophils % (Manual) Platelet Estimate Anisocytosis (manual) PT INR APTT pO2 25 L VBG pH 7.28 L VBG pCO2 67 H* VBG HCO3 25.5 VBG Total CO2 33.6 H VBG O2 Sat (Calc) 29.4 L VBG Base Excess 2.8 H VBG Potassium 3.6 Glucose 38 L* Lactate 1.3 Crit Value Called To T quincy do Crit Value Called By Caleb mosqueda electric meter setter Crit Value Read Back Y Blood Gas Notified Time 1958 Sodium 132.0 Potassium Chloride 96.0 L Carbon Dioxide Anion Gap BUN Creatinine Est GFR ( Amer) Est GFR (Non-Af Amer) POC Glucose (mg/dL) 46 L Random Glucose Calcium Total Bilirubin AST ALT Alkaline Phosphatase Total Creatine Kinase CK-MB (Mass) Troponin I Total Protein Albumin Globulin Albumin/Globulin Ratio TSH 3rd Generation 5.04 H Venous Blood Potassium 3.6 09/07/18 09/07/18 09/07/18 20:45 21:30 21:35 WBC RBC Hgb Hct MCV MCH MCHC RDW Plt Count MPV Neut % (Auto) Lymph % (Auto) [place] % (Auto) Eos % (Auto) Baso % (Auto) Neut # (Auto) Lymph # (Auto) [place] # (Auto) Eos # (Auto) Baso # (Auto) Neutrophils % (Manual) Band Neutrophils % Lymphocytes % (Manual) Monocytes % (Manual) Eosinophils % (Manual) Platelet Estimate Anisocytosis (manual) PT INR APTT pO2 VBG pH VBG pCO2 VBG HCO3 VBG Total CO2 VBG O2 Sat (Calc) VBG Base Excess VBG Potassium Glucose Lactate Crit Value Called To Crit Value Called By Crit Value Read Back Blood Gas Notified Time Sodium Potassium Chloride Carbon Dioxide Anion Gap BUN Creatinine Est GFR ( Amer) Est GFR (Non-Af Amer) POC Glucose (mg/dL) 54 L 56 L 63 L Random Glucose Calcium Total Bilirubin AST ALT Alkaline Phosphatase Total Creatine Kinase CK-MB (Mass) Troponin I Total Protein Albumin Globulin Albumin/Globulin Ratio TSH 3rd Generation Venous Blood Potassium 09/07/18 22:34 WBC RBC Hgb Hct MCV MCH MCHC RDW Plt Count MPV Neut % (Auto) Lymph % (Auto) [place] % (Auto) Eos % (Auto) Baso % (Auto) Neut # (Auto) Lymph # (Auto) [place] # (Auto) Eos # (Auto) Baso # (Auto) Neutrophils % (Manual) Band Neutrophils % Lymphocytes % (Manual) Monocytes % (Manual) Eosinophils % (Manual) Platelet Estimate Anisocytosis (manual) PT INR APTT pO2 VBG pH VBG pCO2 VBG HCO3 VBG Total CO2 VBG O2 Sat (Calc) VBG Base Excess VBG Potassium Glucose Lactate Crit Value Called To Crit Value Called By Crit Value Read Back Blood Gas Notified Time Sodium Potassium Chloride Carbon Dioxide Anion Gap BUN Creatinine Est GFR ( Amer) Est GFR (Non-Af Amer) POC Glucose (mg/dL) 167 H Random Glucose Calcium Total Bilirubin AST ALT Alkaline Phosphatase Total Creatine Kinase CK-MB (Mass) Troponin I Total Protein Albumin Globulin Albumin/Globulin Ratio TSH 3rd Generation Venous Blood Potassium Assessment & Plan - Assessment and Plan (Free Text) Assessment: -SBP/sepsis: r/o with paracentesis, infuse 50 gm of albumin, start oral midodrine, empriially on zosyn, vanco and genta, serial lactic -check Doppler Liver -hold eliquis -paracentesis after BP improves -CKD/ESRD: continue hd as per renal -A-fib: rate controlled -wound care: lower extremitites -despite SBP near 90s-100, patient remains hemodynamically stable, infuse albumin 50 gm once and monitor Patient will benefit from ICU level care until paracenteiss performed and BP i mporves -drug screengin pending - Date & Time Date: 09/08/18 Time: 01:08
[2018-09-08] MEDS ORDERED: Vancomycin 1 GM 1 GM/250 ML BAG IVPB ONE ×2 (01:21)
--- NOTE | 2018-09-08 03:18 | PCM.SEPTIC ---
Sepsis Progress Note - Reassessment Type Date of Evaluation: 09/08/18 Time of Evaluation: 03:17 Reassessment Type: Non-invasive reassessment - Non Invasive Reassessment Were the most recent vital sign reviewed: Yes Vital Sign (Latest): Temp Pulse Resp BP Pulse Ox 97.9 F 74 12 92/49 L 78 L 09/08/18 01:05 09/08/18 01:05 09/08/18 01:05 09/08/18 01:05 09/08/18 01:05 Cardiovascular: Yes: Irregularly Irregular Respiratory: Yes: Normal Breath Sounds. No: Rhonchi, Wheezing Capillary Refill: Normal (Less than 2 sec) Pulses: Normal Radial, Normal Dorsalis Pedis, Normal Posterior Tibialis Skin: Normal Color - Invasive Reassessment (complete 2 of 4) Was a Central Venous Pressure Measurement obtained within 6 Hours after the presentation of septic shock: No Was a central venous oxygen measurement obtained within 6 hours after the presentation of septic shock: No Was a bedside cardiovascular ultrasound performed within 6 hours after the presentation of septic shock: No Was a passive leg raise performed or was a fluid challenge performed within 6 hrs of the initial fluid bolus: No
[2018-09-08 06:18] LABS: BASO % 0.3 % (0.0-2.0); EOS # 0.1 K/uL (0.0-0.7); EOS % 1.6 % (0.0-4.0); HEMOGLOBIN 9.6 g/dL (12.0-18.0); LYMPH # 0.5 K/uL (1.0-4.3); MEAN CELL VOLUME 103.1 fL (80.0-94.0); MEAN CORPUSCULAR HEMOGLOBIN 33.2 pg (27.0-31.0); MEAN CORPUSCULAR HGB CONC 32.2 g/dL (33.0-37.0); MEAN PLATELET VOLUME 9.5 fL (7.2-11.7); MONO # 0.6 K/uL (0.0-0.8); MONO % 6.8 % (0.0-10.0); NEUT % 85.3 % (50.0-75.0); PLATELET COUNT 164 K/uL (130-400); WHITE BLOOD COUNT 8.3 K/uL (4.8-10.8)
[2018-09-08 06:46] LABS: ALB/GLOB RATIO 0.7 (1.0-2.1)
[2018-09-08 07:59] LABS: ANISOCYTOSIS SLIGHT; EOSINOPHIL 2 % (0-4); LYMPHOCYTE 6 % (20-40); MONOCYTE 7 % (0-10); NEUTROPHIL 85 % (50-75); PLATELET ESTIMATE NORMAL (NORMAL); TOTAL CELLS COUNTED 100
[2018-09-08 08:01] LABS: HYPOCHROMIC SLIGHT
--- NOTE | 2018-09-08 08:11 | CT ---
Date of service: 09/07/2018 PROCEDURE: CT HEAD WITHOUT CONTRAST. HISTORY: dizziness, headache after fall, on eliquis COMPARISON: 09/06/2018 TECHNIQUE: Axial computed tomography images were obtained through the head/brain without intravenous contrast. Radiation dose: Total exam DLP = 1131.28 mGy-cm. This CT exam was performed using one or more of the following dose reduction techniques: Automated exposure control, adjustment of the mA and/or kV according to patient size, and/or use of iterative reconstruction technique. FINDINGS: HEMORRHAGE: No intracranial hemorrhage. BRAIN: There are moderate chronic microangiopathic changes. Again seen is cystic encephalomalacia in the right caudate head and basal ganglia with volume loss and ex vacuo dilatation of the right frontal horn. There is no mass, mass effect or abnormal extra-axial fluid collection. There is no territorial infarction. The midline sagittal structures are normal.There are coarse atherosclerotic calcifications in the cavernous carotid arteries. VENTRICLES: There is moderate age-related global parenchymal volume loss and proportionate enlargement of the ventricles and cortical sulci. CALVARIUM: There is no calvarial fracture. Again seen is a large left frontal and periorbital scalp and soft tissue hematoma. PARANASAL SINUSES: Predominantly clear. MASTOID AIR CELLS: Predominantly clear. OTHER FINDINGS: None. IMPRESSION: No acute intracranial abnormality. 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 A preliminary report was provided by [facility].
--- NOTE | 2018-09-08 08:32 | RAD ---
Date of service: 09/07/2018 PROCEDURE: CHEST RADIOGRAPH, 1 VIEW HISTORY: hypoglycemia COMPARISON: 05/09/2018. FINDINGS: LUNGS: There is interval development of dense opacity in the right lower lobe. The left lung is clear. PLEURA: No pneumothorax or pleural effusion. CARDIOVASCULAR: Persistent mild cardiomegaly. There is mild shift of mediastinum to the left. There are aortic atherosclerotic calcifications present. OSSEOUS STRUCTURES: Within normal limits for the patient's age. VISUALIZED UPPER ABDOMEN: Normal. OTHER FINDINGS: None. IMPRESSION: Worsening right pleural effusion and/or lower lobe pneumonia. Follow-up after medical management is recommended to ensure complete resolution.
--- NOTE | 2018-09-08 09:50 | CT ---
Date of service: 09/07/2018 PROCEDURE: CT Abdomen and Pelvis without intravenous contrast HISTORY: abd pain, distension COMPARISON: 08/24/2018 TECHNIQUE: Without contrast.. Contrast dose: 0 Radiation dose: Total exam DLP = 652.43 mGy-cm. This CT exam was performed using one or more of the following dose reduction techniques: Automated exposure control, adjustment of the mA and/or kV according to patient size, and/or use of iterative reconstruction technique. FINDINGS: LOWER THORAX: Moderate bilateral pleural effusion with bilateral lower lobe compressive atelectasis. Cardiomegaly. Coronary arterial calcification. LIVER: Normal size. Mildly nodular contour. Questionable cirrhosis. Mildly hyperdense. This is nonspecific. Consider chronic hemosiderin deposition or amiodarone therapy.. GALLBLADDER AND BILE DUCTS: Unremarkable. PANCREAS: Questionable focal dilatation of the intrapancreatic common bile duct versus cystic mass in the head of the pancreas, 10 mm diameter. In retrospect, this is unchanged in appearance when compared to examination of 08/24/2018. Evaluation grossly limited on this examination due to the absence of intravenous contrast administration. Further evaluation is advised. No other mass. No pancreatic ductal dilatation. SPLEEN: Unremarkable. ADRENALS: Unremarkable. No mass. KIDNEYS AND URETERS: Unremarkable. No hydronephrosis. No solid mass. VASCULATURE: Unremarkable. No aortic aneurysm. There is atherosclerotic calcification of the abdominal aorta BOWEL: Unremarkable. No obstruction. No gross mural thickening. APPENDIX: Unremarkable. Normal appendix. PERITONEUM: Extensive ascites. No pneumoperitoneum. LYMPH NODES: Unremarkable. No enlarged lymph nodes. BLADDER: Unable to evaluate in the presence of extensive ascites. Bladder payne are not clearly discernible. REPRODUCTIVE: Prostate BONES: No acute fracture. OTHER FINDINGS: Generalized anasarca IMPRESSION: Extensive ascites. Moderate bilateral pleural effusion with bilateral lower lobe compressive atelectasis. Cardiomegaly. Mildly hyperdense liver. . See above.Questionable hepatic cirrhosis. Possible 10 mm cystic mass in the head of the pancreas versus focal dilatation of the common bile duct in the intrapancreatic segment. No change from 08/24/2018. Consider further evaluation. Generalized anasarca. The preliminary findings for this examination were reported by [facility] at 11:57 p.m. on 09/07/2018. There is concurrence of this report with the preliminary findings.
[2018-09-08 11:13] LABS: INR 1.3; PARTIAL THROMBOPLASTIN TIME 52.5 SECONDS (21-34); PROTHROMBIN TIME 14.7 SECONDS (9.7-12.2)
[2018-09-08] MEDS ORDERED: Dextrose 50% SYRINGE Inj (50 ml) ONE (12:00)
[2018-09-08 12:15] LABS: VANCOMYCIN RANDOM 45.4 ug/mL
--- NOTE | 2018-09-08 13:34 | US ---
Date of service: 09/08/2018 HISTORY: r/o portal thrombosis COMPARISON: None. TECHNIQUE: Sonographic evaluation of the abdomen. FINDINGS: LIVER: Measures 12.3 cm. Diffusely increased echogenicity of the liver parenchyma. Consistent with fatty infiltration. Smooth contour. No mass. No biliary ductal dilatation. No evidence of portal venous thrombosis. Hepatopetal flow demonstrated in portal vein. Flow demonstrated 3 hepatic veins. GALLBLADDER: No cholelithiasis. Minimal wall thickening common nonspecific. Negative sonographic Harrington sign. COMMON BILE DUCT: Measures 5 mm. No stones. No dilatation. PANCREAS: Unremarkable as visualized. No mass. No ductal dilatation. RIGHT KIDNEY: Measures 7.3cm. Normal echogenicity. No calculus, mass, or hydronephrosis. LEFT KIDNEY: Measures 8.3cm. Normal echogenicity. No calculus, mass, or hydronephrosis. SPLEEN: Normal in size and contour. No mass. AORTA: No aneurysmal dilatation. IVC: Unremarkable. OTHER FINDINGS: Extensive ascites. Bilateral pleural effusion. IMPRESSION: No evidence of portal venous thrombosis. Fatty liver. Extensive ascites. No splenomegaly. Atrophic kidneys. Bilateral pleural effusion. Mild nonspecific thickening of gallbladder wall without evidence of cholelithiasis. No biliary obstruction.
--- NOTE | 2018-09-08 13:44 | CP.CCUPN ---
<Graham Coley - Last Filed: 09/08/18 15:52> CCU Subjective - Physician Review Subjective (Free Text): 09/08/18 13:37 PGY-1 Critical Care Progress Note for Dr. Bergeron Patient seen and examined at bedside this AM. 73 yo male with pmhx of ESRD on HD, HTN, Afib on home eliquis, CHF, DM prese nting with AMS, hypotension. No HD done on day of admission d/t low BP. Distended abdomen, extensive ascites noted on CT A/P w/o contrast Moderate b/l pleural effusions with b/l lower lobe atelectasis Generalized anasarca no evidence of portal venous thrombosis on abd u/s, fatty liver s/p 50 gm albumin infusion, vanc/zosyn & gentamicin for empiric coverage eliquis on hold for paracentesis HD today CCU Objective - Vital Signs / Intake & Output Intake and Output (Last 8hrs): Intake & Output 09/07/18 09/08/18 09/08/18 22:59 06:59 14:59 Intake Total 350 70 Output Total 0 Balance 350 70 Weight 53.07 kg 56.5 kg Intake: Intake, IV Amount 350 70 Left Forearm 100 0 Left Hand 250 60 Right Antecubital 10 Oral 0 Output: Urine 0 Urine, Voided 0 - Physical Exam Head: Positive for: Atraumatic, Normocephalic Pupils: Positive for: PERRL Extroacular Muscles: Positive for: EOMI Mouth: Positive for: Moist Mucous Membranes Respiratory/Chest: Positive for: Clear to Auscultation, Decreased Breath Sounds. Negative for: Respiratory Distress, Accessory Muscle Use, Rales, Rhonchi Cardiovascular: Positive for: Normal S1, S2 Abdomen: Positive for: Distention, Normal Bowel Sounds. Negative for: Tenderness, Rebound, Guarding Lower Extremity: Positive for: Tenderness Skin: Positive for: Other (multiple ulceratons at various stages of healing) Psychiatric: Positive for: Alert, Other (mildly confused, alert and oriented x 2) - Patient Studies Lab Studies: Microbiology Studies 09/08/18 07:08 MRSA Culture (Admit) - Final Nose Lab Studies 09/08/18 09/08/18 09/08/18 Range/Units 11:57 10:47 06:02 WBC (4.8-10.8) K/uL RBC (4.40-5.90) Mil/uL Hgb (12.0-18.0) g/dL Hct (35.0-51.0) % MCV (80.0-94.0) fL MCH (27.0-31.0) pg MCHC (33.0-37.0) g/dL RDW (11.5-14.5) % Plt Count (130-400) K/uL MPV (7.2-11.7) fL Neut % (Auto) (50.0-75.0) % Lymph % (Auto) (20.0-40.0) % [place] % (Auto) (0.0-10.0) % Eos % (Auto) (0.0-4.0) % Baso % (Auto) (0.0-2.0) % Neut # (Auto) (1.8-7.0) K/uL Lymph # (Auto) (1.0-4.3) K/uL [place] # (Auto) (0.0-0.8) K/uL Eos # (Auto) (0.0-0.7) K/uL Baso # (Auto) (0.0-0.2) K/uL Neutrophils % (Manual) (50-75) % Band Neutrophils % (0-2) % Lymphocytes % (Manual) (20-40) % Monocytes % (Manual) (0-10) % Eosinophils % (Manual) (0-4) % Platelet Estimate (NORMAL) Hypochromasia (manual) Anisocytosis (manual) Macrocytosis (manual) PT 14.7 H (9.7-12.2) SECONDS INR 1.3 APTT 52.5 H D (21-34) SECONDS pO2 (30-55) mm/Hg VBG pH (7.32-7.43) VBG pCO2 (40-60) mmHg VBG HCO3 mmol/L VBG Total CO2 (22-28) mmol/L VBG O2 Sat (Calc) (40-65) % VBG Base Excess (0.0-2.0) mmol/L VBG Potassium (3.6-5.2) mmol/L Glucose (75-110) mg/dl Lactate (0.7-2.1) mmol/L Crit Value Called To Crit Value Called By Crit Value Read Back Blood Gas Notified Time Sodium (132-148) mmol/L Potassium (3.6-5.2) mmol/L Chloride (98-107) mmol/L Carbon Dioxide (22-30) mmol/L Anion Gap (10-20) BUN (9-20) mg/dL Creatinine (0.8-1.5) mg/dL Est GFR ( Amer) Est GFR (Non-Af Amer) POC Glucose (mg/dL) (65-110) mg/dL Random Glucose (75-110) mg/dL Lactic Acid 1.0 (0.7-2.1) mmol/L Calcium (8.6-10.4) mg/dl Phosphorus (2.5-4.5) mg/dL Magnesium (1.6-2.3) mg/dL Total Bilirubin (0.2-1.3) mg/dL AST (17-59) U/L ALT (21-72) U/L Alkaline Phosphatase (38-126) U/L Total Creatine Kinase (55-170) U/L CK-MB (Mass) (0.0-3.38) ng/mL Troponin I (0.00-0.120) ng/mL Total Protein (6.3-8.3) g/dL Albumin (3.5-5.0) g/dL Globulin (2.2-3.9) gm/dL Albumin/Globulin Ratio (1.0-2.1) TSH 3rd Generation (0.46-4.68) mIU/L Venous Blood Potassium (3.6-5.2) mmol/L Random Gentamicin 4.8 ug/mL Random Vancomycin 45.4 ug/mL 09/08/18 09/08/18 09/08/18 Range/Units 06:02 06:02 02:29 WBC 8.3 (4.8-10.8) K/uL RBC 2.90 L (4.40-5.90) Mil/uL Hgb 9.6 L (12.0-18.0) g/dL Hct 29.9 L (35.0-51.0) % MCV 103.1 H D (80.0-94.0) fL MCH 33.2 H (27.0-31.0) pg MCHC 32.2 L (33.0-37.0) g/dL RDW 17.0 H (11.5-14.5) % Plt Count 164 (130-400) K/uL MPV 9.5 (7.2-11.7) fL Neut % (Auto) 85.3 H (50.0-75.0) % Lymph % (Auto) 6.0 L (20.0-40.0) % [place] % (Auto) 6.8 (0.0-10.0) % Eos % (Auto) 1.6 (0.0-4.0) % Baso % (Auto) 0.3 (0.0-2.0) % Neut # (Auto) 7.0 (1.8-7.0) K/uL Lymph # (Auto) 0.5 L (1.0-4.3) K/uL [place] # (Auto) 0.6 (0.0-0.8) K/uL Eos # (Auto) 0.1 (0.0-0.7) K/uL Baso # (Auto) 0.0 (0.0-0.2) K/uL Neutrophils % (Manual) 85 H (50-75) % Band Neutrophils % (0-2) % Lymphocytes % (Manual) 6 L (20-40) % Monocytes % (Manual) 7 (0-10) % Eosinophils % (Manual) 2 (0-4) % Platelet Estimate Normal (NORMAL) Hypochromasia (manual) Slight Anisocytosis (manual) Slight Macrocytosis (manual) Slight PT (9.7-12.2) SECONDS INR APTT (21-34) SECONDS pO2 (30-55) mm/Hg VBG pH (7.32-7.43) VBG pCO2 (40-60) mmHg VBG HCO3 mmol/L VBG Total CO2 (22-28) mmol/L VBG O2 Sat (Calc) (40-65) % VBG Base Excess (0.0-2.0) mmol/L VBG Potassium (3.6-5.2) mmol/L Glucose (75-110) mg/dl Lactate (0.7-2.1) mmol/L Crit Value Called To Crit Value Called By Crit Value Read Back Blood Gas Notified Time Sodium 134 (132-148) mmol/L Potassium 4.1 (3.6-5.2) mmol/L Chloride 96 L (98-107) mmol/L Carbon Dioxide 25 (22-30) mmol/L Anion Gap 18 (10-20) BUN 56 H (9-20) mg/dL Creatinine 4.6 H (0.8-1.5) mg/dL Est GFR ( Amer) 15 Est GFR (Non-Af Amer) 13 POC Glucose (mg/dL) 195 H (65-110) mg/dL Random Glucose 98 D (75-110) mg/dL Lactic Acid (0.7-2.1) mmol/L Calcium 7.0 L (8.6-10.4) mg/dl Phosphorus 5.4 H (2.5-4.5) mg/dL Magnesium 2.3 (1.6-2.3) mg/dL Total Bilirubin 0.7 (0.2-1.3) mg/dL AST 49 (17-59) U/L ALT 17 L D (21-72) U/L Alkaline Phosphatase 116 (38-126) U/L Total Creatine Kinase (55-170) U/L CK-MB (Mass) (0.0-3.38) ng/mL Troponin I (0.00-0.120) ng/mL Total Protein 7.5 (6.3-8.3) g/dL Albumin 3.0 L (3.5-5.0) g/dL Globulin 4.5 H (2.2-3.9) gm/dL Albumin/Globulin Ratio 0.7 L (1.0-2.1) TSH 3rd Generation (0.46-4.68) mIU/L Venous Blood Potassium (3.6-5.2) mmol/L Random Gentamicin ug/mL Random Vancomycin ug/mL 09/07/18 09/07/18 09/07/18 Range/Units 22:34 21:35 21:30 WBC (4.8-10.8) K/uL RBC (4.40-5.90) Mil/uL Hgb (12.0-18.0) g/dL Hct (35.0-51.0) % MCV (80.0-94.0) fL MCH (27.0-31.0) pg MCHC (33.0-37.0) g/dL RDW (11.5-14.5) % Plt Count (130-400) K/uL MPV (7.2-11.7) fL Neut % (Auto) (50.0-75.0) % Lymph % (Auto) (20.0-40.0) % [place] % (Auto) (0.0-10.0) % Eos % (Auto) (0.0-4.0) % Baso % (Auto) (0.0-2.0) % Neut # (Auto) (1.8-7.0) K/uL Lymph # (Auto) (1.0-4.3) K/uL [place] # (Auto) (0.0-0.8) K/uL Eos # (Auto) (0.0-0.7) K/uL Baso # (Auto) (0.0-0.2) K/uL Neutrophils % (Manual) (50-75) % Band Neutrophils % (0-2) % Lymphocytes % (Manual) (20-40) % Monocytes % (Manual) (0-10) % Eosinophils % (Manual) (0-4) % Platelet Estimate (NORMAL) Hypochromasia (manual) Anisocytosis (manual) Macrocytosis (manual) PT (9.7-12.2) SECONDS INR APTT (21-34) SECONDS pO2 (30-55) mm/Hg VBG pH (7.32-7.43) VBG pCO2 (40-60) mmHg VBG HCO3 mmol/L VBG Total CO2 (22-28) mmol/L VBG O2 Sat (Calc) (40-65) % VBG Base Excess (0.0-2.0) mmol/L VBG Potassium (3.6-5.2) mmol/L Glucose (75-110) mg/dl Lactate (0.7-2.1) mmol/L Crit Value Called To Crit Value Called By Crit Value Read Back Blood Gas Notified Time Sodium (132-148) mmol/L Potassium (3.6-5.2) mmol/L Chloride (98-107) mmol/L Carbon Dioxide (22-30) mmol/L Anion Gap (10-20) BUN (9-20) mg/dL Creatinine (0.8-1.5) mg/dL Est GFR ( Amer) Est GFR (Non-Af Amer) POC Glucose (mg/dL) 167 H 63 L 56 L (65-110) mg/dL Random Glucose (75-110) mg/dL Lactic Acid (0.7-2.1) mmol/L Calcium (8.6-10.4) mg/dl Phosphorus (2.5-4.5) mg/dL Magnesium (1.6-2.3) mg/dL Total Bilirubin (0.2-1.3) mg/dL AST (17-59) U/L ALT (21-72) U/L Alkaline Phosphatase (38-126) U/L Total Creatine Kinase (55-170) U/L CK-MB (Mass) (0.0-3.38) ng/mL Troponin I (0.00-0.120) ng/mL Total Protein (6.3-8.3) g/dL Albumin (3.5-5.0) g/dL Globulin (2.2-3.9) gm/dL Albumin/Globulin Ratio (1.0-2.1) TSH 3rd Generation (0.46-4.68) mIU/L Venous Blood Potassium (3.6-5.2) mmol/L Random Gentamicin ug/mL Random Vancomycin ug/mL 09/07/18 09/07/18 09/07/18 Range/Units 20:45 20:43 19:55 WBC (4.8-10.8) K/uL RBC (4.40-5.90) Mil/uL Hgb (12.0-18.0) g/dL Hct (35.0-51.0) % MCV (80.0-94.0) fL MCH (27.0-31.0) pg MCHC (33.0-37.0) g/dL RDW (11.5-14.5) % Plt Count (130-400) K/uL MPV (7.2-11.7) fL Neut % (Auto) (50.0-75.0) % Lymph % (Auto) (20.0-40.0) % [place] % (Auto) (0.0-10.0) % Eos % (Auto) (0.0-4.0) % Baso % (Auto) (0.0-2.0) % Neut # (Auto) (1.8-7.0) K/uL Lymph # (Auto) (1.0-4.3) K/uL [place] # (Auto) (0.0-0.8) K/uL Eos # (Auto) (0.0-0.7) K/uL Baso # (Auto) (0.0-0.2) K/uL Neutrophils % (Manual) (50-75) % Band Neutrophils % (0-2) % Lymphocytes % (Manual) (20-40) % Monocytes % (Manual) (0-10) % Eosinophils % (Manual) (0-4) % Platelet Estimate (NORMAL) Hypochromasia (manual) Anisocytosis (manual) Macrocytosis (manual) PT (9.7-12.2) SECONDS INR APTT (21-34) SECONDS pO2 25 L (30-55) mm/Hg VBG pH 7.28 L (7.32-7.43) VBG pCO2 67 H* (40-60) mmHg VBG HCO3 25.5 mmol/L VBG Total CO2 33.6 H (22-28) mmol/L VBG O2 Sat (Calc) 29.4 L (40-65) % VBG Base Excess 2.8 H (0.0-2.0) mmol/L VBG Potassium 3.6 (3.6-5.2) mmol/L Glucose 38 L* (75-110) mg/dl Lactate 1.3 (0.7-2.1) mmol/L Crit Value Called To Aiden camachoquincy do Crit Value Called By Caleb mosqueda ob gyn Crit Value Read Back Y Blood Gas Notified Time 1958 Sodium 132.0 (132-148) mmol/L Potassium (3.6-5.2) mmol/L Chloride 96.0 L (98-107) mmol/L Carbon Dioxide (22-30) mmol/L Anion Gap (10-20) BUN (9-20) mg/dL Creatinine (0.8-1.5) mg/dL Est GFR ( Amer) Est GFR (Non-Af Amer) POC Glucose (mg/dL) 54 L 46 L (65-110) mg/dL Random Glucose (75-110) mg/dL Lactic Acid (0.7-2.1) mmol/L Calcium (8.6-10.4) mg/dl Phosphorus (2.5-4.5) mg/dL Magnesium (1.6-2.3) mg/dL Total Bilirubin (0.2-1.3) mg/dL AST (17-59) U/L ALT (21-72) U/L Alkaline Phosphatase (38-126) U/L Total Creatine Kinase (55-170) U/L CK-MB (Mass) (0.0-3.38) ng/mL Troponin I (0.00-0.120) ng/mL Total Protein (6.3-8.3) g/dL Albumin (3.5-5.0) g/dL Globulin (2.2-3.9) gm/dL Albumin/Globulin Ratio (1.0-2.1) TSH 3rd Generation (0.46-4.68) mIU/L Venous Blood Potassium 3.6 (3.6-5.2) mmol/L Random Gentamicin ug/mL Random Vancomycin ug/mL 09/07/18 09/07/18 09/07/18 Range/Units 19:47 19:47 19:47 WBC (4.8-10.8) K/uL RBC (4.40-5.90) Mil/uL Hgb (12.0-18.0) g/dL Hct (35.0-51.0) % MCV (80.0-94.0) fL MCH (27.0-31.0) pg MCHC (33.0-37.0) g/dL RDW (11.5-14.5) % Plt Count (130-400) K/uL MPV (7.2-11.7) fL Neut % (Auto) (50.0-75.0) % Lymph % (Auto) (20.0-40.0) % [place] % (Auto) (0.0-10.0) % Eos % (Auto) (0.0-4.0) % Baso % (Auto) (0.0-2.0) % Neut # (Auto) (1.8-7.0) K/uL Lymph # (Auto) (1.0-4.3) K/uL [place] # (Auto) (0.0-0.8) K/uL Eos # (Auto) (0.0-0.7) K/uL Baso # (Auto) (0.0-0.2) K/uL Neutrophils % (Manual) (50-75) % Band Neutrophils % (0-2) % Lymphocytes % (Manual) (20-40) % Monocytes % (Manual) (0-10) % Eosinophils % (Manual) (0-4) % Platelet Estimate (NORMAL) Hypochromasia (manual) Anisocytosis (manual) Macrocytosis (manual) PT 14.2 H (9.7-12.2) SECONDS INR 1.3 APTT 45.6 H (21-34) SECONDS pO2 (30-55) mm/Hg VBG pH (7.32-7.43) VBG pCO2 (40-60) mmHg VBG HCO3 mmol/L VBG Total CO2 (22-28) mmol/L VBG O2 Sat (Calc) (40-65) % VBG Base Excess (0.0-2.0) mmol/L VBG Potassium (3.6-5.2) mmol/L Glucose (75-110) mg/dl Lactate (0.7-2.1) mmol/L Crit Value Called To Crit Value Called By Crit Value Read Back Blood Gas Notified Time Sodium 134 (132-148) mmol/L Potassium 3.8 (3.6-5.2) mmol/L Chloride 94 L (98-107) mmol/L Carbon Dioxide 29 (22-30) mmol/L Anion Gap 15 (10-20) BUN 53 H (9-20) mg/dL Creatinine 5.0 H (0.8-1.5) mg/dL Est GFR ( Amer) 14 Est GFR (Non-Af Amer) 11 POC Glucose (mg/dL) (65-110) mg/dL Random Glucose 41 L D (75-110) mg/dL Lactic Acid (0.7-2.1) mmol/L Calcium 7.7 L (8.6-10.4) mg/dl Phosphorus (2.5-4.5) mg/dL Magnesium (1.6-2.3) mg/dL Total Bilirubin 0.7 (0.2-1.3) mg/dL AST 42 (17-59) U/L ALT 14 L (21-72) U/L Alkaline Phosphatase 133 H (38-126) U/L Total Creatine Kinase 127 (55-170) U/L CK-MB (Mass) 6.26 H (0.0-3.38) ng/mL Troponin I 0.0120 (0.00-0.120) ng/mL Total Protein 8.0 (6.3-8.3) g/dL Albumin 2.9 L (3.5-5.0) g/dL Globulin 5.1 H (2.2-3.9) gm/dL Albumin/Globulin Ratio 0.6 L (1.0-2.1) TSH 3rd Generation 5.04 H (0.46-4.68) mIU/L Venous Blood Potassium (3.6-5.2) mmol/L Random Gentamicin ug/mL Random Vancomycin ug/mL 09/07/18 Range/Units 19:47 WBC 7.6 (4.8-10.8) K/uL RBC 3.23 L (4.40-5.90) Mil/uL Hgb 10.7 L (12.0-18.0) g/dL Hct 32.6 L (35.0-51.0) % MCV 100.9 H (80.0-94.0) fL MCH 33.1 H (27.0-31.0) pg MCHC 32.8 L (33.0-37.0) g/dL RDW 17.1 H (11.5-14.5) % Plt Count 176 (130-400) K/uL MPV 9.2 (7.2-11.7) fL Neut % (Auto) 86.9 H (50.0-75.0) % Lymph % (Auto) 5.7 L (20.0-40.0) % [place] % (Auto) 5.9 (0.0-10.0) % Eos % (Auto) 1.1 (0.0-4.0) % Baso % (Auto) 0.4 (0.0-2.0) % Neut # (Auto) 6.6 (1.8-7.0) K/uL Lymph # (Auto) 0.4 L (1.0-4.3) K/uL [place] # (Auto) 0.4 (0.0-0.8) K/uL Eos # (Auto) 0.1 (0.0-0.7) K/uL Baso # (Auto) 0.0 (0.0-0.2) K/uL Neutrophils % (Manual) 89 H (50-75) % Band Neutrophils % 1 (0-2) % Lymphocytes % (Manual) 6 L (20-40) % Monocytes % (Manual) 3 (0-10) % Eosinophils % (Manual) 1 (0-4) % Platelet Estimate Normal (NORMAL) Hypochromasia (manual) Anisocytosis (manual) Slight Macrocytosis (manual) PT (9.7-12.2) SECONDS INR APTT (21-34) SECONDS pO2 (30-55) mm/Hg VBG pH (7.32-7.43) VBG pCO2 (40-60) mmHg VBG HCO3 mmol/L VBG Total CO2 (22-28) mmol/L VBG O2 Sat (Calc) (40-65) % VBG Base Excess (0.0-2.0) mmol/L VBG Potassium (3.6-5.2) mmol/L Glucose (75-110) mg/dl Lactate (0.7-2.1) mmol/L Crit Value Called To Crit Value Called By Crit Value Read Back Blood Gas Notified Time Sodium (132-148) mmol/L Potassium (3.6-5.2) mmol/L Chloride (98-107) mmol/L Carbon Dioxide (22-30) mmol/L Anion Gap (10-20) BUN (9-20) mg/dL Creatinine (0.8-1.5) mg/dL Est GFR ( Amer) Est GFR (Non-Af Amer) POC Glucose (mg/dL) (65-110) mg/dL Random Glucose (75-110) mg/dL Lactic Acid (0.7-2.1) mmol/L Calcium (8.6-10.4) mg/dl Phosphorus (2.5-4.5) mg/dL Magnesium (1.6-2.3) mg/dL Total Bilirubin (0.2-1.3) mg/dL AST (17-59) U/L ALT (21-72) U/L Alkaline Phosphatase (38-126) U/L Total Creatine Kinase (55-170) U/L CK-MB (Mass) (0.0-3.38) ng/mL Troponin I (0.00-0.120) ng/mL Total Protein (6.3-8.3) g/dL Albumin (3.5-5.0) g/dL Globulin (2.2-3.9) gm/dL Albumin/Globulin Ratio (1.0-2.1) TSH 3rd Generation (0.46-4.68) mIU/L Venous Blood Potassium (3.6-5.2) mmol/L Random Gentamicin ug/mL Random Vancomycin ug/mL Laboratory Results - last 24 hr 09/07/18 09/07/18 09/07/18 19:47 19:47 19:47 WBC 7.6 RBC 3.23 L Hgb 10.7 L Hct 32.6 L MCV 100.9 H MCH 33.1 H MCHC 32.8 L RDW 17.1 H Plt Count 176 MPV 9.2 Neut % (Auto) 86.9 H Lymph % (Auto) 5.7 L [place] % (Auto) 5.9 Eos % (Auto) 1.1 Baso % (Auto) 0.4 Neut # (Auto) 6.6 Lymph # (Auto) 0.4 L [place] # (Auto) 0.4 Eos # (Auto) 0.1 Baso # (Auto) 0.0 Neutrophils % (Manual) 89 H Band Neutrophils % 1 Lymphocytes % (Manual) 6 L Monocytes % (Manual) 3 Eosinophils % (Manual) 1 Platelet Estimate Normal Hypochromasia (manual) Anisocytosis (manual) Slight Macrocytosis (manual) PT 14.2 H INR 1.3 APTT 45.6 H pO2 VBG pH VBG pCO2 VBG HCO3 VBG Total CO2 VBG O2 Sat (Calc) VBG Base Excess VBG Potassium Glucose Lactate Crit Value Called To Crit Value Called By Crit Value Read Back Blood Gas Notified Time Sodium 134 Potassium 3.8 Chloride 94 L Carbon Dioxide 29 Anion Gap 15 BUN 53 H Creatinine 5.0 H Est GFR ( Amer) 14 Est GFR (Non-Af Amer) 11 POC Glucose (mg/dL) Random Glucose 41 L D Lactic Acid Calcium 7.7 L Phosphorus Magnesium Total Bilirubin 0.7 AST 42 ALT 14 L Alkaline Phosphatase 133 H Total Creatine Kinase 127 CK-MB (Mass) 6.26 H Troponin I 0.0120 Total Protein 8.0 Albumin 2.9 L Globulin 5.1 H Albumin/Globulin Ratio 0.6 L TSH 3rd Generation Venous Blood Potassium Random Gentamicin Random Vancomycin 09/07/18 09/07/18 09/07/18 19:47 19:55 20:43 WBC RBC Hgb Hct MCV MCH MCHC RDW Plt Count MPV Neut % (Auto) Lymph % (Auto) [place] % (Auto) Eos % (Auto) Baso % (Auto) Neut # (Auto) Lymph # (Auto) [place] # (Auto) Eos # (Auto) Baso # (Auto) Neutrophils % (Manual) Band Neutrophils % Lymphocytes % (Manual) Monocytes % (Manual) Eosinophils % (Manual) Platelet Estimate Hypochromasia (manual) Anisocytosis (manual) Macrocytosis (manual) PT INR APTT pO2 25 L VBG pH 7.28 L VBG pCO2 67 H* VBG HCO3 25.5 VBG Total CO2 33.6 H VBG O2 Sat (Calc) 29.4 L VBG Base Excess 2.8 H VBG Potassium 3.6 Glucose 38 L* Lactate 1.3 Crit Value Called To Aiden mathew do Crit Value Called By Caleb mosqueda ob gyn Crit Value Read Back Y Blood Gas Notified Time 1958 Sodium 132.0 Potassium Chloride 96.0 L Carbon Dioxide Anion Gap BUN Creatinine Est GFR ( Amer) Est GFR (Non-Af Amer) POC Glucose (mg/dL) 46 L Random Glucose Lactic Acid Calcium Phosphorus Magnesium Total Bilirubin AST ALT Alkaline Phosphatase Total Creatine Kinase CK-MB (Mass) Troponin I Total Protein Albumin Globulin Albumin/Globulin Ratio TSH 3rd Generation 5.04 H Venous Blood Potassium 3.6 Random Gentamicin Random Vancomycin 09/07/18 09/07/18 09/07/18 20:45 21:30 21:35 WBC RBC Hgb Hct MCV MCH MCHC RDW Plt Count MPV Neut % (Auto) Lymph % (Auto) [place] % (Auto) Eos % (Auto) Baso % (Auto) Neut # (Auto) Lymph # (Auto) [place] # (Auto) Eos # (Auto) Baso # (Auto) Neutrophils % (Manual) Band Neutrophils % Lymphocytes % (Manual) Monocytes % (Manual) Eosinophils % (Manual) Platelet Estimate Hypochromasia (manual) Anisocytosis (manual) Macrocytosis (manual) PT INR APTT pO2 VBG pH VBG pCO2 VBG HCO3 VBG Total CO2 VBG O2 Sat (Calc) VBG Base Excess VBG Potassium Glucose Lactate Crit Value Called To Crit Value Called By Crit Value Read Back Blood Gas Notified Time Sodium Potassium Chloride Carbon Dioxide Anion Gap BUN Creatinine Est GFR ( Amer) Est GFR (Non-Af Amer) POC Glucose (mg/dL) 54 L 56 L 63 L Random Glucose Lactic Acid Calcium Phosphorus Magnesium Total Bilirubin AST ALT Alkaline Phosphatase Total Creatine Kinase CK-MB (Mass) Troponin I Total Protein Albumin Globulin Albumin/Globulin Ratio TSH 3rd Generation Venous Blood Potassium Random Gentamicin Random Vancomycin 09/07/18 09/08/18 09/08/18 22:34 02:29 06:02 WBC 8.3 RBC 2.90 L Hgb 9.6 L Hct 29.9 L MCV 103.1 H D MCH 33.2 H MCHC 32.2 L RDW 17.0 H Plt Count 164 MPV 9.5 Neut % (Auto) 85.3 H Lymph % (Auto) 6.0 L Archule[place] % (Auto) 6.8 Eos % (Auto) 1.6 Baso % (Auto) 0.3 Neut # (Auto) 7.0 Lymph # (Auto) 0.5 L [place] # (Auto) 0.6 Eos # (Auto) 0.1 Baso # (Auto) 0.0 Neutrophils % (Manual) 85 H Band Neutrophils % Lymphocytes % (Manual) 6 L Monocytes % (Manual) 7 Eosinophils % (Manual) 2 Platelet Estimate Normal Hypochromasia (manual) Slight Anisocytosis (manual) Slight Macrocytosis (manual) Slight PT INR APTT pO2 VBG pH VBG pCO2 VBG HCO3 VBG Total CO2 VBG O2 Sat (Calc) VBG Base Excess VBG Potassium Glucose Lactate Crit Value Called To Crit Value Called By Crit Value Read Back Blood Gas Notified Time Sodium Potassium Chloride Carbon Dioxide Anion Gap BUN Creatinine Est GFR ( Amer) Est GFR (Non-Af Amer) POC Glucose (mg/dL) 167 H 195 H Random Glucose Lactic Acid Calcium Phosphorus Magnesium Total Bilirubin AST ALT Alkaline Phosphatase Total Creatine Kinase CK-MB (Mass) Troponin I Total Protein Albumin Globulin Albumin/Globulin Ratio TSH 3rd Generation Venous Blood Potassium Random Gentamicin Random Vancomycin 09/08/18 09/08/18 09/08/18 06:02 06:02 10:47 WBC RBC Hgb Hct MCV MCH MCHC RDW Plt Count MPV Neut % (Auto) Lymph % (Auto) Archule[place] % (Auto) Eos % (Auto) Baso % (Auto) Neut # (Auto) Lymph # (Auto) Archule[place] # (Auto) Eos # (Auto) Baso # (Auto) Neutrophils % (Manual) Band Neutrophils % Lymphocytes % (Manual) Monocytes % (Manual) Eosinophils % (Manual) Platelet Estimate Hypochromasia (manual) Anisocytosis (manual) Macrocytosis (manual) PT 14.7 H INR 1.3 APTT 52.5 H D pO2 VBG pH VBG pCO2 VBG HCO3 VBG Total CO2 VBG O2 Sat (Calc) VBG Base Excess VBG Potassium Glucose Lactate Crit Value Called To Crit Value Called By Crit Value Read Back Blood Gas Notified Time Sodium 134 Potassium 4.1 Chloride 96 L Carbon Dioxide 25 Anion Gap 18 BUN 56 H Creatinine 4.6 H Est GFR ( Amer) 15 Est GFR (Non-Af Amer) 13 POC Glucose (mg/dL) Random Glucose 98 D Lactic Acid 1.0 Calcium 7.0 L Phosphorus 5.4 H Magnesium 2.3 Total Bilirubin 0.7 AST 49 ALT 17 L D Alkaline Phosphatase 116 Total Creatine Kinase CK-MB (Mass) Troponin I Total Protein 7.5 Albumin 3.0 L Globulin 4.5 H Albumin/Globulin Ratio 0.7 L TSH 3rd Generation Venous Blood Potassium Random Gentamicin Random Vancomycin 09/08/18 11:57 WBC RBC Hgb Hct MCV MCH MCHC RDW Plt Count MPV Neut % (Auto) Lymph % (Auto) [place] % (Auto) Eos % (Auto) Baso % (Auto) Neut # (Auto) Lymph # (Auto) [place] # (Auto) Eos # (Auto) Baso # (Auto) Neutrophils % (Manual) Band Neutrophils % Lymphocytes % (Manual) Monocytes % (Manual) Eosinophils % (Manual) Platelet Estimate Hypochromasia (manual) Anisocytosis (manual) Macrocytosis (manual) PT INR APTT pO2 VBG pH VBG pCO2 VBG HCO3 VBG Total CO2 VBG O2 Sat (Calc) VBG Base Excess VBG Potassium Glucose Lactate Crit Value Called To Crit Value Called By Crit Value Read Back Blood Gas Notified Time Sodium Potassium Chloride Carbon Dioxide Anion Gap BUN Creatinine Est GFR ( Amer) Est GFR (Non-Af Amer) POC Glucose (mg/dL) Random Glucose Lactic Acid Calcium Phosphorus Magnesium Total Bilirubin AST ALT Alkaline Phosphatase Total Creatine Kinase CK-MB (Mass) Troponin I Total Protein Albumin Globulin Albumin/Globulin Ratio TSH 3rd Generation Venous Blood Potassium Random Gentamicin 4.8 Random Vancomycin 45.4 Radiology Impressions: Radiology Impressions Head CT 09/07/18 19:18 IMPRESSION: No acute intracranial abnormality. 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 A preliminary report was provided by [employer]. Abdomen/Pelvis CT 09/07/18 22:35 IMPRESSION: Extensive ascites. Moderate bilateral pleural effusion with bilateral lower lobe compressive atelectasis. Cardiomegaly. Mildly hyperdense liver. . See above.Questionable hepatic cirrhosis. Possible 10 mm cystic mass in the head of the pancreas versus focal dilatation of the common bile duct in the intrapancreatic segment. No change from 08/24/2018. Consider further evaluation. Generalized anasarca. The preliminary findings for this examination were reported by [facility] Radiology at 11:57 p.m. on 09/07/2018. There is concurrence of this report with the preliminary findings. Chest X-Ray 09/07/18 23:00 IMPRESSION: Worsening right pleural effusion and/or lower lobe pneumonia. Follow-up after medical management is recommended to ensure complete resolution. Abdomen Ultrasound 09/08/18 03:16 IMPRESSION: No evidence of portal venous thrombosis. Fatty liver. Extensive ascites. No splenomegaly. Atrophic kidneys. Bilateral pleural effusion. Mild nonspecific thickening of gallbladder wall without evidence of cholelithiasis. No biliary obstruction. EKG/Cardiology Studies: Cardiology / EKG Studies 09/07/18 19:21 EKG [ELECTROCARDIOGRAM] Stat Comment: BED6 Mode Of Transportation: STRETCHER Reason For Exam: HYPOTENSION Fingerstick Blood Sugar Results: 195 Review of Systems - Review of Systems All systems: reviewed and no additional remarkable complaints except Review of Systems: as per HPI Critical Care Progress Note - Nutrition Nutrition: Nutrition Category Date Time Status Renal Diet [DIET] Diets 09/08/18 Breakfast Active Assessment/Plan - Assessment and Plan (Free Text) Assessment: 73 yo male with pmhx of ESRD on HD, HTN, Afib on home eliquis, CHF, DM presenting with AMS, hypotension. No HD done on day of admission d/t low BP. <Selvin Bergeron - Last Filed: 09/08/18 17:28> CCU Subjective - Physician Review Critical Care Time Spent (in minutes): 40 CCU Objective - Vital Signs / Intake & Output Vital Signs (Last 4 hours): Vital Signs Temp Pulse Resp BP Pulse Ox 09/08/18 14:00 95.4 F L 78 19 102/66 98 Intake and Output (Last 8hrs): Intake & Output 09/08/18 09/08/18 09/08/18 06:59 14:59 22:59 Intake Total 350 560 190 Output Total 0 Balance 350 560 190 Weight 124 lb 8.979 oz Intake: Intake, IV Amount 350 80 10 Left Forearm 100 0 Left Hand 250 70 10 Right Antecubital 10 Oral 480 180 Output: Urine 0 Urine, Voided 0 Other: # Bowel Movements 2 - Patient Studies Lab Studies: Microbiology Studies 09/08/18 07:08 MRSA Culture (Admit) - Final Nose Lab Studies 09/08/18 09/08/18 09/08/18 Range/Units 11:57 10:47 06:02 WBC (4.8-10.8) K/uL RBC (4.40-5.90) Mil/uL Hgb (12.0-18.0) g/dL Hct (35.0-51.0) % MCV (80.0-94.0) fL MCH (27.0-31.0) pg MCHC (33.0-37.0) g/dL RDW (11.5-14.5) % Plt Count (130-400) K/uL MPV (7.2-11.7) fL Neut % (Auto) (50.0-75.0) % Lymph % (Auto) (20.0-40.0) % [place] % (Auto) (0.0-10.0) % Eos % (Auto) (0.0-4.0) % Baso % (Auto) (0.0-2.0) % Neut # (Auto) (1.8-7.0) K/uL Lymph # (Auto) (1.0-4.3) K/uL [place] # (Auto) (0.0-0.8) K/uL Eos # (Auto) (0.0-0.7) K/uL Baso # (Auto) (0.0-0.2) K/uL Neutrophils % (Manual) (50-75) % Band Neutrophils % (0-2) % Lymphocytes % (Manual) (20-40) % Monocytes % (Manual) (0-10) % Eosinophils % (Manual) (0-4) % Platelet Estimate (NORMAL) Hypochromasia (manual) Anisocytosis (manual) Macrocytosis (manual) PT 14.7 H (9.7-12.2) SECONDS INR 1.3 APTT 52.5 H D (21-34) SECONDS pO2 (30-55) mm/Hg VBG pH (7.32-7.43) VBG pCO2 (40-60) mmHg VBG HCO3 mmol/L VBG Total CO2 (22-28) mmol/L VBG O2 Sat (Calc) (40-65) % VBG Base Excess (0.0-2.0) mmol/L VBG Potassium (3.6-5.2) mmol/L Glucose (75-110) mg/dl Lactate (0.7-2.1) mmol/L Crit Value Called To Crit Value Called By Crit Value Read Back Blood Gas Notified Time Sodium (132-148) mmol/L Potassium (3.6-5.2) mmol/L Chloride (98-107) mmol/L Carbon Dioxide (22-30) mmol/L Anion Gap (10-20) BUN (9-20) mg/dL Creatinine (0.8-1.5) mg/dL Est GFR ( Amer) Est GFR (Non-Af Amer) POC Glucose (mg/dL) (65-110) mg/dL Random Glucose (75-110) mg/dL Lactic Acid 1.0 (0.7-2.1) mmol/L Calcium (8.6-10.4) mg/dl Phosphorus (2.5-4.5) mg/dL Magnesium (1.6-2.3) mg/dL Total Bilirubin (0.2-1.3) mg/dL AST (17-59) U/L ALT (21-72) U/L Alkaline Phosphatase (38-126) U/L Total Creatine Kinase (55-170) U/L CK-MB (Mass) (0.0-3.38) ng/mL Troponin I (0.00-0.120) ng/mL Total Protein (6.3-8.3) g/dL Albumin (3.5-5.0) g/dL Globulin (2.2-3.9) gm/dL Albumin/Globulin Ratio (1.0-2.1) TSH 3rd Generation (0.46-4.68) mIU/L Venous Blood Potassium (3.6-5.2) mmol/L Random Gentamicin 4.8 ug/mL Random Vancomycin 45.4 ug/mL 09/08/18 09/08/18 09/08/18 Range/Units 06:02 06:02 02:29 WBC 8.3 (4.8-10.8) K/uL RBC 2.90 L (4.40-5.90) Mil/uL Hgb 9.6 L (12.0-18.0) g/dL Hct 29.9 L (35.0-51.0) % MCV 103.1 H D (80.0-94.0) fL MCH 33.2 H (27.0-31.0) pg MCHC 32.2 L (33.0-37.0) g/dL RDW 17.0 H (11.5-14.5) % Plt Count 164 (130-400) K/uL MPV 9.5 (7.2-11.7) fL Neut % (Auto) 85.3 H (50.0-75.0) % Lymph % (Auto) 6.0 L (20.0-40.0) % [place] % (Auto) 6.8 (0.0-10.0) % Eos % (Auto) 1.6 (0.0-4.0) % Baso % (Auto) 0.3 (0.0-2.0) % Neut # (Auto) 7.0 (1.8-7.0) K/uL Lymph # (Auto) 0.5 L (1.0-4.3) K/uL [place] # (Auto) 0.6 (0.0-0.8) K/uL Eos # (Auto) 0.1 (0.0-0.7) K/uL Baso # (Auto) 0.0 (0.0-0.2) K/uL Neutrophils % (Manual) 85 H (50-75) % Band Neutrophils % (0-2) % Lymphocytes % (Manual) 6 L (20-40) % Monocytes % (Manual) 7 (0-10) % Eosinophils % (Manual) 2 (0-4) % Platelet Estimate Normal (NORMAL) Hypochromasia (manual) Slight Anisocytosis (manual) Slight Macrocytosis (manual) Slight PT (9.7-12.2) SECONDS INR APTT (21-34) SECONDS pO2 (30-55) mm/Hg VBG pH (7.32-7.43) VBG pCO2 (40-60) mmHg VBG HCO3 mmol/L VBG Total CO2 (22-28) mmol/L VBG O2 Sat (Calc) (40-65) % VBG Base Excess (0.0-2.0) mmol/L VBG Potassium (3.6-5.2) mmol/L Glucose (75-110) mg/dl Lactate (0.7-2.1) mmol/L Crit Value Called To Crit Value Called By Crit Value Read Back Blood Gas Notified Time Sodium 134 (132-148) mmol/L Potassium 4.1 (3.6-5.2) mmol/L Chloride 96 L (98-107) mmol/L Carbon Dioxide 25 (22-30) mmol/L Anion Gap 18 (10-20) BUN 56 H (9-20) mg/dL Creatinine 4.6 H (0.8-1.5) mg/dL Est GFR ( Amer) 15 Est GFR (Non-Af Amer) 13 POC Glucose (mg/dL) 195 H (65-110) mg/dL Random Glucose 98 D (75-110) mg/dL Lactic Acid (0.7-2.1) mmol/L Calcium 7.0 L (8.6-10.4) mg/dl Phosphorus 5.4 H (2.5-4.5) mg/dL Magnesium 2.3 (1.6-2.3) mg/dL Total Bilirubin 0.7 (0.2-1.3) mg/dL AST 49 (17-59) U/L ALT 17 L D (21-72) U/L Alkaline Phosphatase 116 (38-126) U/L Total Creatine Kinase (55-170) U/L CK-MB (Mass) (0.0-3.38) ng/mL Troponin I (0.00-0.120) ng/mL Total Protein 7.5 (6.3-8.3) g/dL Albumin 3.0 L (3.5-5.0) g/dL Globulin 4.5 H (2.2-3.9) gm/dL Albumin/Globulin Ratio 0.7 L (1.0-2.1) TSH 3rd Generation (0.46-4.68) mIU/L Venous Blood Potassium (3.6-5.2) mmol/L Random Gentamicin ug/mL Random Vancomycin ug/mL 09/07/18 09/07/18 09/07/18 Range/Units 22:34 21:35 21:30 WBC (4.8-10.8) K/uL RBC (4.40-5.90) Mil/uL Hgb (12.0-18.0) g/dL Hct (35.0-51.0) % MCV (80.0-94.0) fL MCH (27.0-31.0) pg MCHC (33.0-37.0) g/dL RDW (11.5-14.5) % Plt Count (130-400) K/uL MPV (7.2-11.7) fL Neut % (Auto) (50.0-75.0) % Lymph % (Auto) (20.0-40.0) % [place] % (Auto) (0.0-10.0) % Eos % (Auto) (0.0-4.0) % Baso % (Auto) (0.0-2.0) % Neut # (Auto) (1.8-7.0) K/uL Lymph # (Auto) (1.0-4.3) K/uL [place] # (Auto) (0.0-0.8) K/uL Eos # (Auto) (0.0-0.7) K/uL Baso # (Auto) (0.0-0.2) K/uL Neutrophils % (Manual) (50-75) % Band Neutrophils % (0-2) % Lymphocytes % (Manual) (20-40) % Monocytes % (Manual) (0-10) % Eosinophils % (Manual) (0-4) % Platelet Estimate (NORMAL) Hypochromasia (manual) Anisocytosis (manual) Macrocytosis (manual) PT (9.7-12.2) SECONDS INR APTT (21-34) SECONDS pO2 (30-55) mm/Hg VBG pH (7.32-7.43) VBG pCO2 (40-60) mmHg VBG HCO3 mmol/L VBG Total CO2 (22-28) mmol/L VBG O2 Sat (Calc) (40-65) % VBG Base Excess (0.0-2.0) mmol/L VBG Potassium (3.6-5.2) mmol/L Glucose (75-110) mg/dl Lactate (0.7-2.1) mmol/L Crit Value Called To Crit Value Called By Crit Value Read Back Blood Gas Notified Time Sodium (132-148) mmol/L Potassium (3.6-5.2) mmol/L Chloride (98-107) mmol/L Carbon Dioxide (22-30) mmol/L Anion Gap (10-20) BUN (9-20) mg/dL Creatinine (0.8-1.5) mg/dL Est GFR ( Amer) Est GFR (Non-Af Amer) POC Glucose (mg/dL) 167 H 63 L 56 L (65-110) mg/dL Random Glucose (75-110) mg/dL Lactic Acid (0.7-2.1) mmol/L Calcium (8.6-10.4) mg/dl Phosphorus (2.5-4.5) mg/dL Magnesium (1.6-2.3) mg/dL Total Bilirubin (0.2-1.3) mg/dL AST (17-59) U/L ALT (21-72) U/L Alkaline Phosphatase (38-126) U/L Total Creatine Kinase (55-170) U/L CK-MB (Mass) (0.0-3.38) ng/mL Troponin I (0.00-0.120) ng/mL Total Protein (6.3-8.3) g/dL Albumin (3.5-5.0) g/dL Globulin (2.2-3.9) gm/dL Albumin/Globulin Ratio (1.0-2.1) TSH 3rd Generation (0.46-4.68) mIU/L Venous Blood Potassium (3.6-5.2) mmol/L Random Gentamicin ug/mL Random Vancomycin ug/mL 09/07/18 09/07/18 09/07/18 Range/Units 20:45 20:43 19:55 WBC (4.8-10.8) K/uL RBC (4.40-5.90) Mil/uL Hgb (12.0-18.0) g/dL Hct (35.0-51.0) % MCV (80.0-94.0) fL MCH (27.0-31.0) pg MCHC (33.0-37.0) g/dL RDW (11.5-14.5) % Plt Count (130-400) K/uL MPV (7.2-11.7) fL Neut % (Auto) (50.0-75.0) % Lymph % (Auto) (20.0-40.0) % [place] % (Auto) (0.0-10.0) % Eos % (Auto) (0.0-4.0) % Baso % (Auto) (0.0-2.0) % Neut # (Auto) (1.8-7.0) K/uL Lymph # (Auto) (1.0-4.3) K/uL [place] # (Auto) (0.0-0.8) K/uL Eos # (Auto) (0.0-0.7) K/uL Baso # (Auto) (0.0-0.2) K/uL Neutrophils % (Manual) (50-75) % Band Neutrophils % (0-2) % Lymphocytes % (Manual) (20-40) % Monocytes % (Manual) (0-10) % Eosinophils % (Manual) (0-4) % Platelet Estimate (NORMAL) Hypochromasia (manual) Anisocytosis (manual) Macrocytosis (manual) PT (9.7-12.2) SECONDS INR APTT (21-34) SECONDS pO2 25 L (30-55) mm/Hg VBG pH 7.28 L (7.32-7.43) VBG pCO2 67 H* (40-60) mmHg VBG HCO3 25.5 mmol/L VBG Total CO2 33.6 H (22-28) mmol/L VBG O2 Sat (Calc) 29.4 L (40-65) % VBG Base Excess 2.8 H (0.0-2.0) mmol/L VBG Potassium 3.6 (3.6-5.2) mmol/L Glucose 38 L* (75-110) mg/dl Lactate 1.3 (0.7-2.1) mmol/L Crit Value Called To Aiden peterso do Crit Value Called By Caleb mosqueda ob gyn Crit Value Read Back Y Blood Gas Notified Time 1958 Sodium 132.0 (132-148) mmol/L Potassium (3.6-5.2) mmol/L Chloride 96.0 L (98-107) mmol/L Carbon Dioxide (22-30) mmol/L Anion Gap (10-20) BUN (9-20) mg/dL Creatinine (0.8-1.5) mg/dL Est GFR ( Amer) Est GFR (Non-Af Amer) POC Glucose (mg/dL) 54 L 46 L (65-110) mg/dL Random Glucose (75-110) mg/dL Lactic Acid (0.7-2.1) mmol/L Calcium (8.6-10.4) mg/dl Phosphorus (2.5-4.5) mg/dL Magnesium (1.6-2.3) mg/dL Total Bilirubin (0.2-1.3) mg/dL AST (17-59) U/L ALT (21-72) U/L Alkaline Phosphatase (38-126) U/L Total Creatine Kinase (55-170) U/L CK-MB (Mass) (0.0-3.38) ng/mL Troponin I (0.00-0.120) ng/mL Total Protein (6.3-8.3) g/dL Albumin (3.5-5.0) g/dL Globulin (2.2-3.9) gm/dL Albumin/Globulin Ratio (1.0-2.1) TSH 3rd Generation (0.46-4.68) mIU/L Venous Blood Potassium 3.6 (3.6-5.2) mmol/L Random Gentamicin ug/mL Random Vancomycin ug/mL 09/07/18 09/07/18 09/07/18 Range/Units 19:47 19:47 19:47 WBC (4.8-10.8) K/uL RBC (4.40-5.90) Mil/uL Hgb (12.0-18.0) g/dL Hct (35.0-51.0) % MCV (80.0-94.0) fL MCH (27.0-31.0) pg MCHC (33.0-37.0) g/dL RDW (11.5-14.5) % Plt Count (130-400) K/uL MPV (7.2-11.7) fL Neut % (Auto) (50.0-75.0) % Lymph % (Auto) (20.0-40.0) % [place] % (Auto) (0.0-10.0) % Eos % (Auto) (0.0-4.0) % Baso % (Auto) (0.0-2.0) % Neut # (Auto) (1.8-7.0) K/uL Lymph # (Auto) (1.0-4.3) K/uL [place] # (Auto) (0.0-0.8) K/uL Eos # (Auto) (0.0-0.7) K/uL Baso # (Auto) (0.0-0.2) K/uL Neutrophils % (Manual) (50-75) % Band Neutrophils % (0-2) % Lymphocytes % (Manual) (20-40) % Monocytes % (Manual) (0-10) % Eosinophils % (Manual) (0-4) % Platelet Estimate (NORMAL) Hypochromasia (manual) Anisocytosis (manual) Macrocytosis (manual) PT 14.2 H (9.7-12.2) SECONDS INR 1.3 APTT 45.6 H (21-34) SECONDS pO2 (30-55) mm/Hg VBG pH (7.32-7.43) VBG pCO2 (40-60) mmHg VBG HCO3 mmol/L VBG Total CO2 (22-28) mmol/L VBG O2 Sat (Calc) (40-65) % VBG Base Excess (0.0-2.0) mmol/L VBG Potassium (3.6-5.2) mmol/L Glucose (75-110) mg/dl Lactate (0.7-2.1) mmol/L Crit Value Called To Crit Value Called By Crit Value Read Back Blood Gas Notified Time Sodium 134 (132-148) mmol/L Potassium 3.8 (3.6-5.2) mmol/L Chloride 94 L (98-107) mmol/L Carbon Dioxide 29 (22-30) mmol/L Anion Gap 15 (10-20) BUN 53 H (9-20) mg/dL Creatinine 5.0 H (0.8-1.5) mg/dL Est GFR ( Amer) 14 Est GFR (Non-Af Amer) 11 POC Glucose (mg/dL) (65-110) mg/dL Random Glucose 41 L D (75-110) mg/dL Lactic Acid (0.7-2.1) mmol/L Calcium 7.7 L (8.6-10.4) mg/dl Phosphorus (2.5-4.5) mg/dL Magnesium (1.6-2.3) mg/dL Total Bilirubin 0.7 (0.2-1.3) mg/dL AST 42 (17-59) U/L ALT 14 L (21-72) U/L Alkaline Phosphatase 133 H (38-126) U/L Total Creatine Kinase 127 (55-170) U/L CK-MB (Mass) 6.26 H (0.0-3.38) ng/mL Troponin I 0.0120 (0.00-0.120) ng/mL Total Protein 8.0 (6.3-8.3) g/dL Albumin 2.9 L (3.5-5.0) g/dL Globulin 5.1 H (2.2-3.9) gm/dL Albumin/Globulin Ratio 0.6 L (1.0-2.1) TSH 3rd Generation 5.04 H (0.46-4.68) mIU/L Venous Blood Potassium (3.6-5.2) mmol/L Random Gentamicin ug/mL Random Vancomycin ug/mL 09/07/18 Range/Units 19:47 WBC 7.6 (4.8-10.8) K/uL RBC 3.23 L (4.40-5.90) Mil/uL Hgb 10.7 L (12.0-18.0) g/dL Hct 32.6 L (35.0-51.0) % MCV 100.9 H (80.0-94.0) fL MCH 33.1 H (27.0-31.0) pg MCHC 32.8 L (33.0-37.0) g/dL RDW 17.1 H (11.5-14.5) % Plt Count 176 (130-400) K/uL MPV 9.2 (7.2-11.7) fL Neut % (Auto) 86.9 H (50.0-75.0) % Lymph % (Auto) 5.7 L (20.0-40.0) % [place] % (Auto) 5.9 (0.0-10.0) % Eos % (Auto) 1.1 (0.0-4.0) % Baso % (Auto) 0.4 (0.0-2.0) % Neut # (Auto) 6.6 (1.8-7.0) K/uL Lymph # (Auto) 0.4 L (1.0-4.3) K/uL [place] # (Auto) 0.4 (0.0-0.8) K/uL Eos # (Auto) 0.1 (0.0-0.7) K/uL Baso # (Auto) 0.0 (0.0-0.2) K/uL Neutrophils % (Manual) 89 H (50-75) % Band Neutrophils % 1 (0-2) % Lymphocytes % (Manual) 6 L (20-40) % Monocytes % (Manual) 3 (0-10) % Eosinophils % (Manual) 1 (0-4) % Platelet Estimate Normal (NORMAL) Hypochromasia (manual) Anisocytosis (manual) Slight Macrocytosis (manual) PT (9.7-12.2) SECONDS INR APTT (21-34) SECONDS pO2 (30-55) mm/Hg VBG pH (7.32-7.43) VBG pCO2 (40-60) mmHg VBG HCO3 mmol/L VBG Total CO2 (22-28) mmol/L VBG O2 Sat (Calc) (40-65) % VBG Base Excess (0.0-2.0) mmol/L VBG Potassium (3.6-5.2) mmol/L Glucose (75-110) mg/dl Lactate (0.7-2.1) mmol/L Crit Value Called To Crit Value Called By Crit Value Read Back Blood Gas Notified Time Sodium (132-148) mmol/L Potassium (3.6-5.2) mmol/L Chloride (98-107) mmol/L Carbon Dioxide (22-30) mmol/L Anion Gap (10-20) BUN (9-20) mg/dL Creatinine (0.8-1.5) mg/dL Est GFR ( Amer) Est GFR (Non-Af Amer) POC Glucose (mg/dL) (65-110) mg/dL Random Glucose (75-110) mg/dL Lactic Acid (0.7-2.1) mmol/L Calcium (8.6-10.4) mg/dl Phosphorus (2.5-4.5) mg/dL Magnesium (1.6-2.3) mg/dL Total Bilirubin (0.2-1.3) mg/dL AST (17-59) U/L ALT (21-72) U/L Alkaline Phosphatase (38-126) U/L Total Creatine Kinase (55-170) U/L CK-MB (Mass) (0.0-3.38) ng/mL Troponin I (0.00-0.120) ng/mL Total Protein (6.3-8.3) g/dL Albumin (3.5-5.0) g/dL Globulin (2.2-3.9) gm/dL Albumin/Globulin Ratio (1.0-2.1) TSH 3rd Generation (0.46-4.68) mIU/L Venous Blood Potassium (3.6-5.2) mmol/L Random Gentamicin ug/mL Random Vancomycin ug/mL Laboratory Results - last 24 hr 09/07/18 09/07/18 09/07/18 19:47 19:47 19:47 WBC 7.6 RBC 3.23 L Hgb 10.7 L Hct 32.6 L MCV 100.9 H MCH 33.1 H MCHC 32.8 L RDW 17.1 H Plt Count 176 MPV 9.2 Neut % (Auto) 86.9 H Lymph % (Auto) 5.7 L [place] % (Auto) 5.9 Eos % (Auto) 1.1 Baso % (Auto) 0.4 Neut # (Auto) 6.6 Lymph # (Auto) 0.4 L [place] # (Auto) 0.4 Eos # (Auto) 0.1 Baso # (Auto) 0.0 Neutrophils % (Manual) 89 H Band Neutrophils % 1 Lymphocytes % (Manual) 6 L Monocytes % (Manual) 3 Eosinophils % (Manual) 1 Platelet Estimate Normal Hypochromasia (manual) Anisocytosis (manual) Slight Macrocytosis (manual) PT 14.2 H INR 1.3 APTT 45.6 H pO2 VBG pH VBG pCO2 VBG HCO3 VBG Total CO2 VBG O2 Sat (Calc) VBG Base Excess VBG Potassium Glucose Lactate Crit Value Called To Crit Value Called By Crit Value Read Back Blood Gas Notified Time Sodium 134 Potassium 3.8 Chloride 94 L Carbon Dioxide 29 Anion Gap 15 BUN 53 H Creatinine 5.0 H Est GFR ( Amer) 14 Est GFR (Non-Af Amer) 11 POC Glucose (mg/dL) Random Glucose 41 L D Lactic Acid Calcium 7.7 L Phosphorus Magnesium Total Bilirubin 0.7 AST 42 ALT 14 L Alkaline Phosphatase 133 H Total Creatine Kinase 127 CK-MB (Mass) 6.26 H Troponin I 0.0120 Total Protein 8.0 Albumin 2.9 L Globulin 5.1 H Albumin/Globulin Ratio 0.6 L TSH 3rd Generation Venous Blood Potassium Random Gentamicin Random Vancomycin 09/07/18 09/07/18 09/07/18 19:47 19:55 20:43 WBC RBC Hgb Hct MCV MCH MCHC RDW Plt Count MPV Neut % (Auto) Lymph % (Auto) [place] % (Auto) Eos % (Auto) Baso % (Auto) Neut # (Auto) Lymph # (Auto) [place] # (Auto) Eos # (Auto) Baso # (Auto) Neutrophils % (Manual) Band Neutrophils % Lymphocytes % (Manual) Monocytes % (Manual) Eosinophils % (Manual) Platelet Estimate Hypochromasia (manual) Anisocytosis (manual) Macrocytosis (manual) PT INR APTT pO2 25 L VBG pH 7.28 L VBG pCO2 67 H* VBG HCO3 25.5 VBG Total CO2 33.6 H VBG O2 Sat (Calc) 29.4 L VBG Base Excess 2.8 H VBG Potassium 3.6 Glucose 38 L* Lactate 1.3 Crit Value Called To T quincy do Crit Value Called By Caleb mosqueda ob gyn Crit Value Read Back Y Blood Gas Notified Time 1958 Sodium 132.0 Potassium Chloride 96.0 L Carbon Dioxide Anion Gap BUN Creatinine Est GFR ( Amer) Est GFR (Non-Af Amer) POC Glucose (mg/dL) 46 L Random Glucose Lactic Acid Calcium Phosphorus Magnesium Total Bilirubin AST ALT Alkaline Phosphatase Total Creatine Kinase CK-MB (Mass) Troponin I Total Protein Albumin Globulin Albumin/Globulin Ratio TSH 3rd Generation 5.04 H Venous Blood Potassium 3.6 Random Gentamicin Random Vancomycin 09/07/18 09/07/18 09/07/18 20:45 21:30 21:35 WBC RBC Hgb Hct MCV MCH MCHC RDW Plt Count MPV Neut % (Auto) Lymph % (Auto) [place] % (Auto) Eos % (Auto) Baso % (Auto) Neut # (Auto) Lymph # (Auto) [place] # (Auto) Eos # (Auto) Baso # (Auto) Neutrophils % (Manual) Band Neutrophils % Lymphocytes % (Manual) Monocytes % (Manual) Eosinophils % (Manual) Platelet Estimate Hypochromasia (manual) Anisocytosis (manual) Macrocytosis (manual) PT INR APTT pO2 VBG pH VBG pCO2 VBG HCO3 VBG Total CO2 VBG O2 Sat (Calc) VBG Base Excess VBG Potassium Glucose Lactate Crit Value Called To Crit Value Called By Crit Value Read Back Blood Gas Notified Time Sodium Potassium Chloride Carbon Dioxide Anion Gap BUN Creatinine Est GFR ( Amer) Est GFR (Non-Af Amer) POC Glucose (mg/dL) 54 L 56 L 63 L Random Glucose Lactic Acid Calcium Phosphorus Magnesium Total Bilirubin AST ALT Alkaline Phosphatase Total Creatine Kinase CK-MB (Mass) Troponin I Total Protein Albumin Globulin Albumin/Globulin Ratio TSH 3rd Generation Venous Blood Potassium Random Gentamicin Random Vancomycin 09/07/18 09/08/18 09/08/18 22:34 02:29 06:02 WBC 8.3 RBC 2.90 L Hgb 9.6 L Hct 29.9 L MCV 103.1 H D MCH 33.2 H MCHC 32.2 L RDW 17.0 H Plt Count 164 MPV 9.5 Neut % (Auto) 85.3 H Lymph % (Auto) 6.0 L [place] % (Auto) 6.8 Eos % (Auto) 1.6 Baso % (Auto) 0.3 Neut # (Auto) 7.0 Lymph # (Auto) 0.5 L [place] # (Auto) 0.6 Eos # (Auto) 0.1 Baso # (Auto) 0.0 Neutrophils % (Manual) 85 H Band Neutrophils % Lymphocytes % (Manual) 6 L Monocytes % (Manual) 7 Eosinophils % (Manual) 2 Platelet Estimate Normal Hypochromasia (manual) Slight Anisocytosis (manual) Slight Macrocytosis (manual) Slight PT INR APTT pO2 VBG pH VBG pCO2 VBG HCO3 VBG Total CO2 VBG O2 Sat (Calc) VBG Base Excess VBG Potassium Glucose Lactate Crit Value Called To Crit Value Called By Crit Value Read Back Blood Gas Notified Time Sodium Potassium Chloride Carbon Dioxide Anion Gap BUN Creatinine Est GFR ( Amer) Est GFR (Non-Af Amer) POC Glucose (mg/dL) 167 H 195 H Random Glucose Lactic Acid Calcium Phosphorus Magnesium Total Bilirubin AST ALT Alkaline Phosphatase Total Creatine Kinase CK-MB (Mass) Troponin I Total Protein Albumin Globulin Albumin/Globulin Ratio TSH 3rd Generation Venous Blood Potassium Random Gentamicin Random Vancomycin 09/08/18 09/08/18 09/08/18 06:02 06:02 10:47 WBC RBC Hgb Hct MCV MCH MCHC RDW Plt Count MPV Neut % (Auto) Lymph % (Auto) [place] % (Auto) Eos % (Auto) Baso % (Auto) Neut # (Auto) Lymph # (Auto) [place] # (Auto) Eos # (Auto) Baso # (Auto) Neutrophils % (Manual) Band Neutrophils % Lymphocytes % (Manual) Monocytes % (Manual) Eosinophils % (Manual) Platelet Estimate Hypochromasia (manual) Anisocytosis (manual) Macrocytosis (manual) PT 14.7 H INR 1.3 APTT 52.5 H D pO2 VBG pH VBG pCO2 VBG HCO3 VBG Total CO2 VBG O2 Sat (Calc) VBG Base Excess VBG Potassium Glucose Lactate Crit Value Called To Crit Value Called By Crit Value Read Back Blood Gas Notified Time Sodium 134 Potassium 4.1 Chloride 96 L Carbon Dioxide 25 Anion Gap 18 BUN 56 H Creatinine 4.6 H Est GFR ( Amer) 15 Est GFR (Non-Af Amer) 13 POC Glucose (mg/dL) Random Glucose 98 D Lactic Acid 1.0 Calcium 7.0 L Phosphorus 5.4 H Magnesium 2.3 Total Bilirubin 0.7 AST 49 ALT 17 L D Alkaline Phosphatase 116 Total Creatine Kinase CK-MB (Mass) Troponin I Total Protein 7.5 Albumin 3.0 L Globulin 4.5 H Albumin/Globulin Ratio 0.7 L TSH 3rd Generation Venous Blood Potassium Random Gentamicin Random Vancomycin 09/08/18 11:57 WBC RBC Hgb Hct MCV MCH MCHC RDW Plt Count MPV Neut % (Auto) Lymph % (Auto) [place] % (Auto) Eos % (Auto) Baso % (Auto) Neut # (Auto) Lymph # (Auto) [place] # (Auto) Eos # (Auto) Baso # (Auto) Neutrophils % (Manual) Band Neutrophils % Lymphocytes % (Manual) Monocytes % (Manual) Eosinophils % (Manual) Platelet Estimate Hypochromasia (manual) Anisocytosis (manual) Macrocytosis (manual) PT INR APTT pO2 VBG pH VBG pCO2 VBG HCO3 VBG Total CO2 VBG O2 Sat (Calc) VBG Base Excess VBG Potassium Glucose Lactate Crit Value Called To Crit Value Called By Crit Value Read Back Blood Gas Notified Time Sodium Potassium Chloride Carbon Dioxide Anion Gap BUN Creatinine Est GFR ( Amer) Est GFR (Non-Af Amer) POC Glucose (mg/dL) Random Glucose Lactic Acid Calcium Phosphorus Magnesium Total Bilirubin AST ALT Alkaline Phosphatase Total Creatine Kinase CK-MB (Mass) Troponin I Total Protein Albumin Globulin Albumin/Globulin Ratio TSH 3rd Generation Venous Blood Potassium Random Gentamicin 4.8 Random Vancomycin 45.4 Radiology Impressions: Radiology Impressions Head CT 09/07/18 19:18 IMPRESSION: No acute intracranial abnormality. 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 A preliminary report was provided by [email or web address]. Abdomen/Pelvis CT 09/07/18 22:35 IMPRESSION: Extensive ascites. Moderate bilateral pleural effusion with bilateral lower lobe compressive atelectasis. Cardiomegaly. Mildly hyperdense liver. . See above.Questionable hepatic cirrhosis. Possible 10 mm cystic mass in the head of the pancreas versus focal dilatation of the common bile duct in the intrapancreatic segment. No change from 08/24/2018. Consider further evaluation. Generalized anasarca. The preliminary findings for this examination were reported by [email or web address] at 11:57 p.m. on 09/07/2018. There is concurrence of this report with the preliminary findings. Chest X-Ray 09/07/18 23:00 IMPRESSION: Worsening right pleural effusion and/or lower lobe pneumonia. Follow-up after medical management is recommended to ensure complete resolution. Abdomen Ultrasound 09/08/18 03:16 IMPRESSION: No evidence of portal venous thrombosis. Fatty liver. Extensive ascites. No splenomegaly. Atrophic kidneys. Bilateral pleural effusion. Mild nonspecific thickening of gallbladder wall without evidence of cholelithiasis. No biliary obstruction. Duplex Scan Lower Extremity Artery 09/08/18 08:43 IMPRESSION: Right: No evidence of deep or superficial vein thrombosis of the right lower extremity. Normal valve function noted of the right side. Left: No evidence of deep or superficial vein thrombosis of the left lower extremity. Normal valve function noted of the left side. EKG/Cardiology Studies: Cardiology / EKG Studies 09/07/18 19:21 EKG [ELECTROCARDIOGRAM] Stat Comment: BED6 Mode Of Transportation: STRETCHER Reason For Exam: HYPOTENSION Critical Care Progress Note - Nutrition Nutrition: Nutrition Category Date Time Status Renal Diet [DIET] Diets 09/08/18 Breakfast Active Attending/Attestation - Attestation I have personally seen and examined this patient.: Yes I have fully participated in the care of the patient.: Yes I have reviewed all pertinent clinical information: Yes Notes (Text): 09/08/18 17:27 Patient seen and examined in the intensive care unit. Case discussed with housestaff in the morning rounds. 73-year-old male admitted to intensive care unit for hypotension and abdominal distention/ascites Eliquis on hold and the plan for paracentesis Increasing bilateral pleural effusion and possible pneumonia Continue antibiotics Follow-up culture and sensitivity
--- NOTE | 2018-09-08 14:14 | VASCLAB ---
Date of service: 09/08/2018 PROCEDURE: Lower Extremity Venous Duplex Exam. HISTORY: edema PRIORS: None. TECHNIQUE: Bilateral common femoral, femoral, popliteal and posterior tibial, peroneal and great saphenous veins were evaluated. Flow was assessed with color Doppler, compressibility, assessment of phasic flow and augmentation response. Report prepared by Qing Cavanaugh, HOLLEY, RVS FINDINGS: RIGHT: 1. Common Femoral Vein: 1.1. Compressibility - Fully compressible: Thrombus - None : Flow - Phasic: Augmentation -Normal: Reflux - None. 2. Femoral Vein: 2.1. Compressibility - Fully compressible: Thrombus - None : Flow - Phasic: Augmentation -Normal: Reflux - None. 3. Popliteal Vein: 3.1. Compressibility - Fully compressible: Thrombus - None : Flow - Phasic: Augmentation -Normal: Reflux - None. 4. Posterior Tibial Vein: 4.1. Compressibility - Fully compressible: Thrombus - None: Flow - Phasic: Augmentation -Normal: Reflux - None. 5. Peroneal Vein: 5.1. Compressibility - Fully compressible: Thrombus - None: Flow - Phasic: Augmentation -Normal: Reflux - None. 6. Great Saphenous Vein: 6.1. Compressibility - Fully compressible: Thrombus - None: Flow - Phasic: Augmentation - Normal: Reflux - None. LEFT: 1. Common Femoral Vein: 1.1. Compressibility - Fully compressible: Thrombus - None: Flow - Phasic: Augmentation -Normal: Reflux - None. 2. Femoral Vein: 2.1. Compressibility - Fully compressible: Thrombus - None: Flow - Phasic: Augmentation -Normal: Reflux - None. 3. Popliteal Vein: 3.1. Compressibility - Fully compressible: Thrombus - None : Flow - Phasic: Augmentation -Normal: Reflux - None. 4. Posterior Tibial Vein: 4.1. Compressibility - Fully compressible: Thrombus - None: Flow - Phasic: Augmentation -Normal: Reflux - None. 5. Peroneal Vein: 5.1. Compressibility - Fully compressible: Thrombus - None: Flow - Phasic: Augmentation -Normal: Reflux - None. 6. Great Saphenous Vein: 6.1. Compressibility - Fully compressible: Thrombus - None: Flow - Phasic: Augmentation - Normal: Reflux - None. OTHER FINDINGS: Right: None significant. Left: None significant. IMPRESSION: Right: No evidence of deep or superficial vein thrombosis of the right lower extremity. Normal valve function noted of the right side. Left: No evidence of deep or superficial vein thrombosis of the left lower extremity. Normal valve function noted of the left side.
--- NOTE | 2018-09-08 14:35 | CARD ---
APPROVED REPORT Date of service: 09/07/2018 EKG Measurement Heart [id number] <Conclusion> Atrial fibrillation Low voltage QRS Cannot rule out Anterior infarct, age undetermined Abnormal ECG
[2018-09-08 21:03] LABS: BASO % 0.5 % (0.0-2.0); EOS # 0.1 K/uL (0.0-0.7); EOS % 2.2 % (0.0-4.0); HEMOGLOBIN 8.9 g/dL (12.0-18.0); LYMPH # 0.1 K/uL (1.0-4.3); LYMPH % 2.2 % (20.0-40.0); MEAN CELL VOLUME 101.4 fL (80.0-94.0); MEAN CORPUSCULAR HEMOGLOBIN 33.1 pg (27.0-31.0); MEAN CORPUSCULAR HGB CONC 32.7 g/dL (33.0-37.0); MEAN PLATELET VOLUME 8.9 fL (7.2-11.7); MONO # 0.2 K/uL (0.0-0.8); MONO % 3.4 % (0.0-10.0); NEUT # 5.9 K/uL (1.8-7.0); NEUT % 91.7 % (50.0-75.0); NRBC % 0.1 % (0.0-2.0); PLATELET COUNT 119 K/uL (130-400); RBC 2.69 Mil/uL (4.40-5.90); WHITE BLOOD COUNT 6.5 K/uL (4.8-10.8)
[2018-09-08 21:22] LABS: ALB/GLOB RATIO 0.7 (1.0-2.1); ALBUMIN 3.2 g/dL (3.5-5.0); CALCIUM 7.7 mg/dl (8.6-10.4)
[2018-09-08 21:23] LABS: VANCOMYCIN RANDOM 32.3 ug/mL
[2018-09-08 21:59] LABS: BANDS 1 % (0-2); EOSINOPHIL 1 % (0-4); LYMPHOCYTE 4 % (20-40); MONOCYTE 3 % (0-10); NEUTROPHIL 91 % (50-75); TOTAL CELLS COUNTED 100
[2018-09-08 22:00] LABS: PLATELET ESTIMATE SLIGHTLY DECREASED (NORMAL)
[2018-09-08] MEDS ORDERED: Dextrose 50% SYRINGE Inj (50 ml) IV STA (22:24)
[2018-09-09 06:00] LABS: BASO % 0.3 % (0.0-2.0); EOS # 0.3 K/uL (0.0-0.7); EOS % 3.6 % (0.0-4.0); LYMPH # 0.7 K/uL (1.0-4.3); LYMPH % 9.7 % (20.0-40.0); MEAN CELL VOLUME 102.8 fL (80.0-94.0); MEAN CORPUSCULAR HEMOGLOBIN 33.2 pg (27.0-31.0); MEAN CORPUSCULAR HGB CONC 32.3 g/dL (33.0-37.0); MEAN PLATELET VOLUME 9.8 fL (7.2-11.7); MONO # 0.4 K/uL (0.0-0.8); MONO % 5.2 % (0.0-10.0); NEUT # 5.8 K/uL (1.8-7.0); NEUT % 81.2 % (50.0-75.0); NRBC % 0.2 % (0.0-2.0); PLATELET COUNT 138 K/uL (130-400); RBC 3.01 Mil/uL (4.40-5.90); RED CELL DISTRIBUTION WIDTH 17.4 % (11.5-14.5); WHITE BLOOD COUNT 7.1 K/uL (4.8-10.8)
[2018-09-09 06:32] LABS: ALB/GLOB RATIO 0.6 (1.0-2.1); ALBUMIN 2.8 g/dL (3.5-5.0); CALCIUM 7.4 mg/dl (8.6-10.4)
[2018-09-09] MEDS ORDERED: Dextrose 50% SYRINGE Inj (50 ml) ONE (06:36)
[2018-09-09] MEDS ORDERED: Dextrose 50% SYRINGE Inj (50 ml) IV ONE (07:00)
--- NOTE | 2018-09-09 09:02 | CP.CCUPN ---
CCU Subjective - Physician Review Events Since Last Encounter (Free Text): 09/09/18 09:02 Patient is a 73-year-old male with a history of diabetes hypertension end-stage renal disease and heart disease and peripheral vascular disease atrial flutter fibrillation and hyperlipidemia. Patient admitted to the hospital with a low blood pressure. He was also having distended abdomen. Hypertension was noted. Code sepsis was called. Patient was admitted to the intensive care unit with the low blood pressure. Antibiotic was given. Suspected bacterial peritonitis was noted. Patient received hemodialysis yesterday. On examination now: Patient is awake and he is answering simple questions. He is complaining of some abdominal pain. HEENT PERRLA Chest bilateral good air entry Abdominal distention and fluid thrill noted. Pedal edema 1+ noted. Right arm AV fistula noted I reviewed today's labs. Platelet is 138 Hemoglobin 10.0 renal functions nonspecific Patient had a hypoglycemic episode Patient has a DVT study negative for DVT Abdominal sonogram showing extensive ascites No splenomegaly No evidence of cholecystitis chest x-ray showing possible right pleural effusion CAT scan of the abdomen extensive ascites moderate bilateral pleural effusion Assessment and recommendation: Patient is a 73-year-old male with a history of diabetes hypertension end-stage renal disease on dialysis heart failure Patient admitted with hypotension. Likely SBP On antibiotic. Patient received enough antibiotic yesterday during the dialysis. We will continue the Zosyn for now. Out of bed to chair. Continue the anticoagulation. GI evaluation. I will follow the patient CCU Objective - Vital Signs / Intake & Output Vital Signs (Last 4 hours): Vital Signs Temp Pulse Resp BP Pulse Ox 09/09/18 08:00 97.3 F L 67 11 L 100 09/09/18 07:59 66 13 106/52 L 09/09/18 07:00 72 13 98 09/09/18 06:59 76 10 L 99/42 L 95 09/09/18 06:00 77 15 95 09/09/18 05:59 79 16 109/49 L 92 L Intake and Output (Last 8hrs): Intake & Output 09/08/18 09/09/18 09/09/18 22:59 06:59 14:59 Intake Total 555 0 0 Output Total 0 0 0 Balance 555 0 0 Weight 130 lb 1.164 oz 130 lb Intake: Intake, IV Amount 10 0 Left Hand 10 Right Antecubital 0 Oral 545 0 Output: Urine 0 0 0 Urine, Voided 0 0 0 Other: # Bowel Movements 1 0 - Physical Exam Head: Positive for: Atraumatic, Normocephalic Pupils: Positive for: PERRL Extroacular Muscles: Positive for: EOMI Mouth: Positive for: Moist Mucous Membranes Respiratory/Chest: Positive for: Clear to Auscultation, Decreased Breath Sounds. Negative for: Respiratory Distress, Accessory Muscle Use, Rales, Rhonchi Cardiovascular: Positive for: Normal S1, S2 Abdomen: Positive for: Distention, Normal Bowel Sounds. Negative for: Tenderness, Rebound, Guarding Lower Extremity: Positive for: Tenderness Skin: Positive for: Other (multiple ulceratons at various stages of healing) Psychiatric: Positive for: Alert, Other (mildly confused, alert and oriented x 2) - Medications Active Medications: Active Medications Generic Name Dose Route Start Last Admin Trade Name Freq PRN Reason Stop Dose Admin Apixaban 2.5 mg 09/09/18 10:00 Eliquis PO BID [facility] Home Med 800 mg 09/09/18 10:00 Sevelamer [Renagel] PO TID [facility] Home Med 10 mg 09/09/18 22:00 Atorvastatin [Lipitor] PO HS [facility] Piperacillin Sod/Tazobactam 100 mls @ 200 mls/hr 09/09/18 10:00 Sod 2.275 gm/ Sodium Chloride IVPB Q12 [facility] Protocol Tamsulosin HCl 0.4 mg 09/09/18 10:00 Flomax PO DAILY [facility] Vitamin B Complex/Vit C/Folic Acid 1 tab 09/09/18 10:00 Nephro-Amita PO DAILY [facility] - Patient Studies Lab Studies: Microbiology Studies 09/07/18 19:00 Blood Culture - Preliminary Blood NO GROWTH AFTER 24 HOURS 09/07/18 19:15 Blood Culture - Preliminary Blood NO GROWTH AFTER 24 HOURS 09/08/18 07:08 MRSA Culture (Admit) - Final Nose Lab Studies 09/09/18 09/09/18 09/08/18 Range/Units 05:52 05:47 20:54 WBC 7.1 (4.8-10.8) K/uL RBC 3.01 L (4.40-5.90) Mil/uL Hgb 10.0 L (12.0-18.0) g/dL Hct 30.9 L (35.0-51.0) % MCV 102.8 H (80.0-94.0) fL MCH 33.2 H (27.0-31.0) pg MCHC 32.3 L (33.0-37.0) g/dL RDW 17.4 H (11.5-14.5) % Plt Count 138 (130-400) K/uL MPV 9.8 (7.2-11.7) fL Neut % (Auto) 81.2 H (50.0-75.0) % Lymph % (Auto) 9.7 L (20.0-40.0) % [place] % (Auto) 5.2 (0.0-10.0) % Eos % (Auto) 3.6 (0.0-4.0) % Baso % (Auto) 0.3 (0.0-2.0) % Neut # (Auto) 5.8 (1.8-7.0) K/uL Lymph # (Auto) 0.7 L (1.0-4.3) K/uL [place] # (Auto) 0.4 (0.0-0.8) K/uL Eos # (Auto) 0.3 (0.0-0.7) K/uL Baso # (Auto) 0.0 (0.0-0.2) K/uL Neutrophils % (Manual) (50-75) % Band Neutrophils % (0-2) % Lymphocytes % (Manual) (20-40) % Monocytes % (Manual) (0-10) % Eosinophils % (Manual) (0-4) % Platelet Estimate (NORMAL) PT (9.7-12.2) SECONDS INR APTT (21-34) SECONDS Sodium 135 (132-148) mmol/L Potassium 3.7 (3.6-5.2) mmol/L Chloride 94 L (98-107) mmol/L Carbon Dioxide 29 (22-30) mmol/L Anion Gap 16 (10-20) BUN 35 H (9-20) mg/dL Creatinine 3.5 H (0.8-1.5) mg/dL Est GFR ( Amer) 21 Est GFR (Non-Af Amer) 17 Random Glucose 32 L* D (75-110) mg/dL Calcium 7.4 L (8.6-10.4) mg/dl Phosphorus 4.0 (2.5-4.5) mg/dL Magnesium 2.2 (1.6-2.3) mg/dL Total Bilirubin 0.8 (0.2-1.3) mg/dL AST 46 (17-59) U/L ALT 21 (21-72) U/L Alkaline Phosphatase 102 (38-126) U/L Total Protein 7.2 (6.3-8.3) g/dL Albumin 2.8 L (3.5-5.0) g/dL Globulin 4.3 H (2.2-3.9) gm/dL Albumin/Globulin Ratio 0.6 L (1.0-2.1) Random Gentamicin 2.0 ug/mL Random Vancomycin 32.3 ug/mL 09/08/18 09/08/18 09/08/18 Range/Units 20:54 20:54 11:57 WBC 6.5 (4.8-10.8) K/uL RBC 2.69 L (4.40-5.90) Mil/uL Hgb 8.9 L (12.0-18.0) g/dL Hct 27.3 L (35.0-51.0) % MCV 101.4 H (80.0-94.0) fL MCH 33.1 H (27.0-31.0) pg MCHC 32.7 L (33.0-37.0) g/dL RDW 17.0 H (11.5-14.5) % Plt Count 119 L D (130-400) K/uL MPV 8.9 (7.2-11.7) fL Neut % (Auto) 91.7 H (50.0-75.0) % Lymph % (Auto) 2.2 L (20.0-40.0) % [place] % (Auto) 3.4 (0.0-10.0) % Eos % (Auto) 2.2 (0.0-4.0) % Baso % (Auto) 0.5 (0.0-2.0) % Neut # (Auto) 5.9 (1.8-7.0) K/uL Lymph # (Auto) 0.1 L (1.0-4.3) K/uL [place] # (Auto) 0.2 (0.0-0.8) K/uL Eos # (Auto) 0.1 (0.0-0.7) K/uL Baso # (Auto) 0.0 (0.0-0.2) K/uL Neutrophils % (Manual) 91 H (50-75) % Band Neutrophils % 1 (0-2) % Lymphocytes % (Manual) 4 L (20-40) % Monocytes % (Manual) 3 (0-10) % Eosinophils % (Manual) 1 (0-4) % Platelet Estimate Slightly decreased L (NORMAL) PT (9.7-12.2) SECONDS INR APTT (21-34) SECONDS Sodium 136 (132-148) mmol/L Potassium 3.0 L (3.6-5.2) mmol/L Chloride 93 L (98-107) mmol/L Carbon Dioxide 30 (22-30) mmol/L Anion Gap 16 (10-20) BUN 24 H (9-20) mg/dL Creatinine 2.4 H (0.8-1.5) mg/dL Est GFR ( Amer) 32 Est GFR (Non-Af Amer) 27 Random Glucose 86 (75-110) mg/dL Calcium 7.7 L (8.6-10.4) mg/dl Phosphorus 2.9 (2.5-4.5) mg/dL Magnesium 2.1 (1.6-2.3) mg/dL Total Bilirubin 0.8 (0.2-1.3) mg/dL AST 35 (17-59) U/L ALT 18 L (21-72) U/L Alkaline Phosphatase 101 (38-126) U/L Total Protein 7.6 (6.3-8.3) g/dL Albumin 3.2 L (3.5-5.0) g/dL Globulin 4.4 H (2.2-3.9) gm/dL Albumin/Globulin Ratio 0.7 L (1.0-2.1) Random Gentamicin 4.8 ug/mL Random Vancomycin 45.4 ug/mL 09/08/18 Range/Units 10:47 WBC (4.8-10.8) K/uL RBC (4.40-5.90) Mil/uL Hgb (12.0-18.0) g/dL Hct (35.0-51.0) % MCV (80.0-94.0) fL MCH (27.0-31.0) pg MCHC (33.0-37.0) g/dL RDW (11.5-14.5) % Plt Count (130-400) K/uL MPV (7.2-11.7) fL Neut % (Auto) (50.0-75.0) % Lymph % (Auto) (20.0-40.0) % [place] % (Auto) (0.0-10.0) % Eos % (Auto) (0.0-4.0) % Baso % (Auto) (0.0-2.0) % Neut # (Auto) (1.8-7.0) K/uL Lymph # (Auto) (1.0-4.3) K/uL [place] # (Auto) (0.0-0.8) K/uL Eos # (Auto) (0.0-0.7) K/uL Baso # (Auto) (0.0-0.2) K/uL Neutrophils % (Manual) (50-75) % Band Neutrophils % (0-2) % Lymphocytes % (Manual) (20-40) % Monocytes % (Manual) (0-10) % Eosinophils % (Manual) (0-4) % Platelet Estimate (NORMAL) PT 14.7 H (9.7-12.2) SECONDS INR 1.3 APTT 52.5 H D (21-34) SECONDS Sodium (132-148) mmol/L Potassium (3.6-5.2) mmol/L Chloride (98-107) mmol/L Carbon Dioxide (22-30) mmol/L Anion Gap (10-20) BUN (9-20) mg/dL Creatinine (0.8-1.5) mg/dL Est GFR ( Amer) Est GFR (Non-Af Amer) Random Glucose (75-110) mg/dL Calcium (8.6-10.4) mg/dl Phosphorus (2.5-4.5) mg/dL Magnesium (1.6-2.3) mg/dL Total Bilirubin (0.2-1.3) mg/dL AST (17-59) U/L ALT (21-72) U/L Alkaline Phosphatase (38-126) U/L Total Protein (6.3-8.3) g/dL Albumin (3.5-5.0) g/dL Globulin (2.2-3.9) gm/dL Albumin/Globulin Ratio (1.0-2.1) Random Gentamicin ug/mL Random Vancomycin ug/mL Laboratory Results - last 24 hr 09/08/18 09/08/18 09/08/18 10:47 11:57 20:54 WBC 6.5 RBC 2.69 L Hgb 8.9 L Hct 27.3 L MCV 101.4 H MCH 33.1 H MCHC 32.7 L RDW 17.0 H Plt Count 119 L D MPV 8.9 Neut % (Auto) 91.7 H Lymph % (Auto) 2.2 L [place] % (Auto) 3.4 Eos % (Auto) 2.2 Baso % (Auto) 0.5 Neut # (Auto) 5.9 Lymph # (Auto) 0.1 L [place] # (Auto) 0.2 Eos # (Auto) 0.1 Baso # (Auto) 0.0 Neutrophils % (Manual) 91 H Band Neutrophils % 1 Lymphocytes % (Manual) 4 L Monocytes % (Manual) 3 Eosinophils % (Manual) 1 Platelet Estimate Slightly decreased L PT 14.7 H INR 1.3 APTT 52.5 H D Sodium Potassium Chloride Carbon Dioxide Anion Gap BUN Creatinine Est GFR ( Amer) Est GFR (Non-Af Amer) Random Glucose Calcium Phosphorus Magnesium Total Bilirubin AST ALT Alkaline Phosphatase Total Protein Albumin Globulin Albumin/Globulin Ratio Random Gentamicin 4.8 Random Vancomycin 45.4 09/08/18 09/08/18 09/09/18 20:54 20:54 05:47 WBC RBC Hgb Hct MCV MCH MCHC RDW Plt Count MPV Neut % (Auto) Lymph % (Auto) [place] % (Auto) Eos % (Auto) Baso % (Auto) Neut # (Auto) Lymph # (Auto) [place] # (Auto) Eos # (Auto) Baso # (Auto) Neutrophils % (Manual) Band Neutrophils % Lymphocytes % (Manual) Monocytes % (Manual) Eosinophils % (Manual) Platelet Estimate PT INR APTT Sodium 136 135 Potassium 3.0 L 3.7 Chloride 93 L 94 L Carbon Dioxide 30 29 Anion Gap 16 16 BUN 24 H 35 H Creatinine 2.4 H 3.5 H Est GFR ( Amer) 32 21 Est GFR (Non-Af Amer) 27 17 Random Glucose 86 32 L* D Calcium 7.7 L 7.4 L Phosphorus 2.9 4.0 Magnesium 2.1 2.2 Total Bilirubin 0.8 0.8 AST 35 46 ALT 18 L 21 Alkaline Phosphatase 101 102 Total Protein 7.6 7.2 Albumin 3.2 L 2.8 L Globulin 4.4 H 4.3 H Albumin/Globulin Ratio 0.7 L 0.6 L Random Gentamicin 2.0 Random Vancomycin 32.3 09/09/18 05:52 WBC 7.1 RBC 3.01 L Hgb 10.0 L Hct 30.9 L MCV 102.8 H MCH 33.2 H MCHC 32.3 L RDW 17.4 H Plt Count 138 MPV 9.8 Neut % (Auto) 81.2 H Lymph % (Auto) 9.7 L [place] % (Auto) 5.2 Eos % (Auto) 3.6 Baso % (Auto) 0.3 Neut # (Auto) 5.8 Lymph # (Auto) 0.7 L [place] # (Auto) 0.4 Eos # (Auto) 0.3 Baso # (Auto) 0.0 Neutrophils % (Manual) Band Neutrophils % Lymphocytes % (Manual) Monocytes % (Manual) Eosinophils % (Manual) Platelet Estimate PT INR APTT Sodium Potassium Chloride Carbon Dioxide Anion Gap BUN Creatinine Est GFR ( Amer) Est GFR (Non-Af Amer) Random Glucose Calcium Phosphorus Magnesium Total Bilirubin AST ALT Alkaline Phosphatase Total Protein Albumin Globulin Albumin/Globulin Ratio Random Gentamicin Random Vancomycin Radiology Impressions: Radiology Impressions Abdomen/Pelvis CT 09/07/18 22:35 IMPRESSION: Extensive ascites. Moderate bilateral pleural effusion with bilateral lower lobe compressive atelectasis. Cardiomegaly. Mildly hyperdense liver. . See above.Questionable hepatic cirrhosis. Possible 10 mm cystic mass in the head of the pancreas versus focal dilatation of the common bile duct in the intrapancreatic segment. No change from 08/24/2018. Consider further evaluation. Generalized anasarca. The preliminary findings for this examination were reported by [facility] at 11:57 p.m. on 09/07/2018. There is concurrence of this report with the preliminary findings. Abdomen Ultrasound 09/08/18 03:16 IMPRESSION: No evidence of portal venous thrombosis. Fatty liver. Extensive ascites. No splenomegaly. Atrophic kidneys. Bilateral pleural effusion. Mild nonspecific thickening of gallbladder wall without evidence of cholelithiasis. No biliary obstruction. Duplex Scan Lower Extremity Artery 09/08/18 08:43 IMPRESSION: Right: No evidence of deep or superficial vein thrombosis of the right lower extremity. Normal valve function noted of the right side. Left: No evidence of deep or superficial vein thrombosis of the left lower extremity. Normal valve function noted of the left side. Fingerstick Blood Sugar Results: 91 Critical Care Progress Note - Nutrition Nutrition: Nutrition Category Date Time Status Renal Diet [DIET] Diets 09/09/18 Lunch Ordered
[2018-09-09 09:05] LABS: BASOPHIL 1 % (0-2); EOSINOPHIL 5 % (0-4); LYMPHOCYTE 9 % (20-40); MONOCYTE 4 % (0-10); NEUTROPHIL 81 % (50-75); TOTAL CELLS COUNTED 100
[2018-09-09 09:06] LABS: ANISOCYTOSIS MODERATE; PLATELET ESTIMATE NORMAL (NORMAL); POLYCHROMIC SLIGHT; TOXIC GRANULATION PRESENT
[2018-09-09 09:07] LABS: LARGE PLATELETS PRESENT
[2018-09-09 09:08] LABS: HYPOCHROMIC MODERATE
[2018-09-09] MEDS ORDERED: Piperacillin/Tazobact 2.275 GM in Sodium Chloride 100 ML IVPB SCH (10:00)
[2018-09-09] MEDS: Multivitamin Vitamin B Complex (Nephro-Vite) Tab PO SCH (10:45)
[2018-09-09] MEDS: Piperacill/Tazo 2.25gm in Dex 2.25 GM/50 ML BAG IVPB SCH ×2 (10:45→21:06)
--- NOTE | 2018-09-09 11:59 | CP.PCM.CON ---
History of Present Illness - History of Present Illness History of Present Illness: consult for HD management 73 yo [place] gentleman, ESRD, DM, PVD, mild dementia, chronic ascites, CHF ,presents with increasing ascites, associated with confusion and hypotension. Being treated for SBP, on IV AB. Pt received HD yesterday. Mental status improved. Uses an [facility] for dialysis, usual day T,,S. Most recently, has been in [place] for rehabilitation. Mental status now with pt verbal, but with periods of confusion. is at bedside. Review of Systems - Review of Systems Systems not reviewed;Unavailable: Dementia Past Patient History - Infectious Disease Hx of Infectious Diseases: None - Tetanus Immunizations Tetanus Immunization: Unknown - Past Medical History & Family History Past Medical History?: Yes - Past Social History Smoking Status: Never Smoked - CARDIAC Hx Cardia Arrhythmia: Yes (A FIB/FLUTTER) Hx Congestive Heart Failure: Yes Hx Hypercholesterolemia: Yes Hx Hypertension: Yes - PULMONARY Hx Respiratory Disorders: No - NEUROLOGICAL Hx Neurological Disorder: No - HEENT Hx HEENT Problems: Yes Hx Cataracts: Yes (BILAT.) - RENAL Hx Chronic Kidney Disease: Yes - ENDOCRINE/METABOLIC Hx Diabetes Mellitus Type 1: Yes - HEMATOLOGICAL/ONCOLOGICAL Hx Blood Disorders: Yes Hx Blood Transfusions: Yes - INTEGUMENTARY Hx Dermatological Problems: No - MUSCULOSKELETAL/RHEUMATOLOGICAL Hx Arthritis: Yes - GASTROINTESTINAL Hx Gastrointestinal Disorders: Yes Other/Comment: BLOOD IN STOOL - GENITOURINARY/GYNECOLOGICAL Hx Genitourinary Disorders: Yes Hx Hematuria: Yes Hx Prostate Problems: Yes Hx Urinary Tract Infection: Yes - PSYCHIATRIC Hx Substance Use: No - SURGICAL HISTORY Hx Surgeries: Yes Hx Arteriovenous Shunt: Yes (AV FISTULA RIGHT ARM) Hx Cataract Extraction: Yes (BILAT.) Hx Eye Surgery: Yes (LEFT EYE) Other/Comment: SKIN GRAFT LEFT FOOT - ANESTHESIA Hx Anesthesia: Yes Hx Anesthesia Reactions: No Hx Malignant Hyperthermia: No Meds Allergies/Adverse Reactions: Allergies Allergy/AdvReac Type Severity Reaction Status Date / Time No Known Allergies Allergy Verified 09/07/18 19:02 - Medications Medications: Current Medications Apixaban (Eliquis) 2.5 mg PO BID [facility] Last Admin: 09/09/18 10:45 Dose: 2.5 mg Piperacillin Sod/Tazobactam Sod (Zosyn 2.25 Gm Iv Premix) 2.25 gm in 50 mls @ 200 mls/hr IVPB Q12 [facility]; Protocol Stop: 09/09/18 22:14 Last Admin: 09/09/18 10:45 Dose: 200 mls/hr Rosuvastatin Calcium (Crestor) 5 mg PO HS [facility] Sevelamer Carbonate (Renvela) 800 mg PO TID [facility] Last Admin: 09/09/18 10:45 Dose: 800 mg Tamsulosin HCl (Flomax) 0.4 mg PO DAILY [facility] Last Admin: 09/09/18 10:45 Dose: 0.4 mg Vitamin B Complex/Vit C/Folic Acid (Nephro-Amita) 1 tab PO DAILY [facility] Last Admin: 09/09/18 10:45 Dose: 1 tab Physical Exam - Constitutional Appears: No Acute Distress, Confused, Chronically Ill - Head Exam Head Exam: ATRAUMATIC, NORMAL INSPECTION - Eye Exam Eye Exam: EOMI Additional comments: ecchymoses under both eyes due to recent fall - ENT Exam ENT Exam: Mucous Membranes Moist - Neck Exam Neck exam: Positive for: Full Rom. Negative for: Lymphadenopathy - Respiratory Exam Respiratory Exam: Decreased Breath Sounds. absent: Accessory Muscle Use - Cardiovascular Exam Cardiovascular Exam: REGULAR RHYTHM. absent: Rubs - GI/Abdominal Exam GI & Abdominal Exam: Distended, Soft Additional comments: ascites - Extremities Exam Extremities exam: Negative for: pedal edema - Neurological Exam Neurological exam: Alert Results - Vital Signs Recent Vital Signs: Last Vital Signs Temp 97.3 F L 09/09/18 08:00 Pulse 75 09/09/18 11:17 Resp 12 09/09/18 11:17 BP 95/49 L 09/09/18 11:17 Pulse Ox 84 L 09/09/18 09:00 - Labs Result Diagrams: 09/09/18 05:52 09/09/18 05:47 Labs: Laboratory Results - last 24 hr 09/08/18 09/08/18 09/08/18 11:57 20:54 20:54 WBC 6.5 RBC 2.69 L Hgb 8.9 L Hct 27.3 L MCV 101.4 H MCH 33.1 H MCHC 32.7 L RDW 17.0 H Plt Count 119 L D MPV 8.9 Neut % (Auto) 91.7 H Lymph % (Auto) 2.2 L [place] % (Auto) 3.4 Eos % (Auto) 2.2 Baso % (Auto) 0.5 Neut # (Auto) 5.9 Lymph # (Auto) 0.1 L [place] # (Auto) 0.2 Eos # (Auto) 0.1 Baso # (Auto) 0.0 Neutrophils % (Manual) 91 H Band Neutrophils % 1 Lymphocytes % (Manual) 4 L Monocytes % (Manual) 3 Eosinophils % (Manual) 1 Basophils % (Manual) Toxic Granulation Platelet Estimate Slightly decreased L Large Platelets Polychromasia Hypochromasia (manual) Basophilic Stippling Anisocytosis (manual) Macrocytosis (manual) Sodium 136 Potassium 3.0 L Chloride 93 L Carbon Dioxide 30 Anion Gap 16 BUN 24 H Creatinine 2.4 H Est GFR ( Amer) 32 Est GFR (Non-Af Amer) 27 Random Glucose 86 Calcium 7.7 L Phosphorus 2.9 Magnesium 2.1 Total Bilirubin 0.8 AST 35 ALT 18 L Alkaline Phosphatase 101 Total Protein 7.6 Albumin 3.2 L Globulin 4.4 H Albumin/Globulin Ratio 0.7 L Random Gentamicin 4.8 Random Vancomycin 45.4 09/08/18 09/09/18 09/09/18 20:54 05:47 05:52 WBC 7.1 RBC 3.01 L Hgb 10.0 L Hct 30.9 L MCV 102.8 H MCH 33.2 H MCHC 32.3 L RDW 17.4 H Plt Count 138 MPV 9.8 Neut % (Auto) 81.2 H Lymph % (Auto) 9.7 L [place] % (Auto) 5.2 Eos % (Auto) 3.6 Baso % (Auto) 0.3 Neut # (Auto) 5.8 Lymph # (Auto) 0.7 L [place] # (Auto) 0.4 Eos # (Auto) 0.3 Baso # (Auto) 0.0 Neutrophils % (Manual) 81 H Band Neutrophils % Lymphocytes % (Manual) 9 L Monocytes % (Manual) 4 Eosinophils % (Manual) 5 H Basophils % (Manual) 1 Toxic Granulation Present Platelet Estimate Normal Large Platelets Present Polychromasia Slight Hypochromasia (manual) Moderate Basophilic Stippling Slight Anisocytosis (manual) Moderate Macrocytosis (manual) Moderate Sodium 135 Potassium 3.7 Chloride 94 L Carbon Dioxide 29 Anion Gap 16 BUN 35 H Creatinine 3.5 H Est GFR ( Amer) 21 Est GFR (Non-Af Amer) 17 Random Glucose 32 L* D Calcium 7.4 L Phosphorus 4.0 Magnesium 2.2 Total Bilirubin 0.8 AST 46 ALT 21 Alkaline Phosphatase 102 Total Protein 7.2 Albumin 2.8 L Globulin 4.3 H Albumin/Globulin Ratio 0.6 L Random Gentamicin 2.0 Random Vancomycin 32.3 Assessment & Plan - Assessment and Plan (Free Text) Assessment: maint HD, next on Tuesday check head CT, especially in light of recent fall check NH3 continue AB monitor medicines for ESRD
--- NOTE | 2018-09-09 14:17 | CP.PCM.CON ---
History of Present Illness - History of Present Illness History of Present Illness: Podiatry Consult Note: Dr. Cavanaugh 73 year old male with PMHx of DM, HTN, ESRD on HD, chronic atrial fibrillation, HLD was seen and evaluated at bedside in the ICU for worsening bilateral LE ulcerations (L>R). Patient states that 2 days ago he sustained fall after having episode of syncope. he states that he was brought to the hospital. he states that he is having the ulcerations since long time. Patient denies of having any pain to bilateral LE at this time. Denies of having any recent F/N/V/C/SOB. He denies any other pedal complains at this time. PMHx: PMHx of DM, HTN, ESRD on HD, chronic atrial fibrillation, HLD PSHx: AV fistula, cataract surgery, multiple wound debridements with skin grafts to left ankle and foot ulcers Allergies: NKDA SHx: Denies EtOH, Tobacco or illicit drug use Review of Systems - Review of Systems Review of Systems: As per HPI - Constitutional Constitutional: As Per HPI Past Patient History - Infectious Disease Hx of Infectious Diseases: None - Tetanus Immunizations Tetanus Immunization: Unknown - Past Medical History & Family History Past Medical History?: Yes - Past Social History Smoking Status: Never Smoked - CARDIAC Hx Cardia Arrhythmia: Yes (A FIB/FLUTTER) Hx Congestive Heart Failure: Yes Hx Hypercholesterolemia: Yes Hx Hypertension: Yes - PULMONARY Hx Respiratory Disorders: No - NEUROLOGICAL Hx Neurological Disorder: No - HEENT Hx HEENT Problems: Yes Hx Cataracts: Yes (BILAT.) - RENAL Hx Chronic Kidney Disease: Yes - ENDOCRINE/METABOLIC Hx Diabetes Mellitus Type 1: Yes - HEMATOLOGICAL/ONCOLOGICAL Hx Blood Disorders: Yes Hx Blood Transfusions: Yes - INTEGUMENTARY Hx Dermatological Problems: No - MUSCULOSKELETAL/RHEUMATOLOGICAL Hx Arthritis: Yes - GASTROINTESTINAL Hx Gastrointestinal Disorders: Yes Other/Comment: BLOOD IN STOOL - GENITOURINARY/GYNECOLOGICAL Hx Genitourinary Disorders: Yes Hx Hematuria: Yes Hx Prostate Problems: Yes Hx Urinary Tract Infection: Yes - PSYCHIATRIC Hx Substance Use: No - SURGICAL HISTORY Hx Surgeries: Yes Hx Arteriovenous Shunt: Yes (AV FISTULA RIGHT ARM) Hx Cataract Extraction: Yes (BILAT.) Hx Eye Surgery: Yes (LEFT EYE) Other/Comment: SKIN GRAFT LEFT FOOT - ANESTHESIA Hx Anesthesia: Yes Hx Anesthesia Reactions: No Hx Malignant Hyperthermia: No Meds Allergies/Adverse Reactions: Allergies Allergy/AdvReac Type Severity Reaction Status Date / Time No Known Allergies Allergy Verified 09/07/18 19:02 - Medications Medications: Current Medications Apixaban (Eliquis) 2.5 mg PO BID [facility] Last Admin: 09/09/18 10:45 Dose: 2.5 mg Dicyclomine HCl (Bentyl) 10 mg PO QID [facility] Piperacillin Sod/Tazobactam Sod (Zosyn 2.25 Gm Iv Premix) 2.25 gm in 50 mls @ 200 mls/hr IVPB Q12 [facility]; Protocol Stop: 09/09/18 22:14 Last Admin: 09/09/18 10:45 Dose: 200 mls/hr Rosuvastatin Calcium (Crestor) 5 mg PO HS [facility] Sevelamer Carbonate (Renvela) 800 mg PO TID [facility] Last Admin: 09/09/18 10:45 Dose: 800 mg Tamsulosin HCl (Flomax) 0.4 mg PO DAILY [facility] Last Admin: 09/09/18 10:45 Dose: 0.4 mg Vitamin B Complex/Vit C/Folic Acid (Nephro-Amita) 1 tab PO DAILY [facility] Last Admin: 09/09/18 10:45 Dose: 1 tab Physical Exam - Head Exam Additional comments: Trauma and swelling of the eye brows. - Extremities Exam Additional comments: B/L Lower extremity focused exam: VASC: DP/PT pulses are non-palpable at this time. Temperature gradient warm to warm b/l. Cap refill slightly delayed > 3 sec to all digits on the left and approximately 3 sec to the right. NEURO: Protective sensation slightly diminished. DERM: RLE: An ulcer noted on the medial aspect of the 1st MPJ covered with black eschar 2 cm in diameter with hyperkeratotic edge, Base is mixed fibronecrotic, No drainage, No malodor, No probe to bone, No undermining. Another non stageable ulcer noted on the heel measuring 5 cm X 4 cm covered with black eschar, No drainage, No malodor, No probe to bone, No undermining. LLE: An ulcer noted on the medial aspect of the 1st MPJ covered with black eschar 2 cm X 1 cm, Base is necrotic, No drainage, No malodor, No probe to bone, No undermining. A smaller ulcer noted on the medial side of the hallux 0.5 cm in diameter covered with black eschar, Base is necrotic, No drainage, No malodor, No probe to bone, No undermining. 2 ulcerations noted on the plantar aspect of the 4th and 5th MPJ measuring 2 cm x 1 cm and 1.5 cm X 0.8 cm concequently covered with black eschar, Base is necrotic, No drainage, No malodor, No probe to bone, No undermining. Another non stageable ulcer noted on the heel measuri ng 5.5 cm X 4.2 cm covered with black eschar, No drainage, No malodor, No probe to bone, No undermining. MSK: No tenderness to palpation of B/L lower extremity ulcerations. MMT 3/5 b/l to all groups - Neurological Exam Neurological exam: Alert, Oriented x3 Results - Vital Signs Recent Vital Signs: Last Vital Signs Temp 97.2 F L 09/09/18 12:00 Pulse 72 09/09/18 13:00 Resp 9 L 09/09/18 13:00 BP 93/51 L 09/09/18 12:59 Pulse Ox 99 09/09/18 13:00 - Labs Result Diagrams: 09/09/18 05:52 09/09/18 05:47 Labs: Laboratory Results - last 24 hr 09/08/18 09/08/18 09/08/18 20:54 20:54 20:54 WBC 6.5 RBC 2.69 L Hgb 8.9 L Hct 27.3 L MCV 101.4 H MCH 33.1 H MCHC 32.7 L RDW 17.0 H Plt Count 119 L D MPV 8.9 Neut % (Auto) 91.7 H Lymph % (Auto) 2.2 L [place] % (Auto) 3.4 Eos % (Auto) 2.2 Baso % (Auto) 0.5 Neut # (Auto) 5.9 Lymph # (Auto) 0.1 L [place] # (Auto) 0.2 Eos # (Auto) 0.1 Baso # (Auto) 0.0 Neutrophils % (Manual) 91 H Band Neutrophils % 1 Lymphocytes % (Manual) 4 L Monocytes % (Manual) 3 Eosinophils % (Manual) 1 Basophils % (Manual) Toxic Granulation Platelet Estimate Slightly decreased L Large Platelets Polychromasia Hypochromasia (manual) Basophilic Stippling Anisocytosis (manual) Macrocytosis (manual) Sodium 136 Potassium 3.0 L Chloride 93 L Carbon Dioxide 30 Anion Gap 16 BUN 24 H Creatinine 2.4 H Est GFR ( Amer) 32 Est GFR (Non-Af Amer) 27 Random Glucose 86 Calcium 7.7 L Phosphorus 2.9 Magnesium 2.1 Total Bilirubin 0.8 AST 35 ALT 18 L Alkaline Phosphatase 101 Ammonia Total Protein 7.6 Albumin 3.2 L Globulin 4.4 H Albumin/Globulin Ratio 0.7 L Random Gentamicin 2.0 Random Vancomycin 32.3 09/09/18 09/09/18 09/09/18 05:47 05:52 12:25 WBC 7.1 RBC 3.01 L Hgb 10.0 L Hct 30.9 L MCV 102.8 H MCH 33.2 H MCHC 32.3 L RDW 17.4 H Plt Count 138 MPV 9.8 Neut % (Auto) 81.2 H Lymph % (Auto) 9.7 L [place] % (Auto) 5.2 Eos % (Auto) 3.6 Baso % (Auto) 0.3 Neut # (Auto) 5.8 Lymph # (Auto) 0.7 L [place] # (Auto) 0.4 Eos # (Auto) 0.3 Baso # (Auto) 0.0 Neutrophils % (Manual) 81 H Band Neutrophils % Lymphocytes % (Manual) 9 L Monocytes % (Manual) 4 Eosinophils % (Manual) 5 H Basophils % (Manual) 1 Toxic Granulation Present Platelet Estimate Normal Large Platelets Present Polychromasia Slight Hypochromasia (manual) Moderate Basophilic Stippling Slight Anisocytosis (manual) Moderate Macrocytosis (manual) Moderate Sodium 135 Potassium 3.7 Chloride 94 L Carbon Dioxide 29 Anion Gap 16 BUN 35 H Creatinine 3.5 H Est GFR ( Amer) 21 Est GFR (Non-Af Amer) 17 Random Glucose 32 L* D Calcium 7.4 L Phosphorus 4.0 Magnesium 2.2 Total Bilirubin 0.8 AST 46 ALT 21 Alkaline Phosphatase 102 Ammonia < 9 L Total Protein 7.2 Albumin 2.8 L Globulin 4.3 H Albumin/Globulin Ratio 0.6 L Random Gentamicin Random Vancomycin Assessment & Plan - Assessment and Plan (Free Text) Assessment: 73 year old male with PMHx of DM, HTN, ESRD on HD, chronic atrial fibrillation, HLD was evaluated for worsening multiple bilateral LE ulcerations (L>R) Plan: Patient seen and evaluated in ICU Discussed plan with Dr. Cavanaugh Charts, labs and vitals reviewed; Afebrile, No leukocytosis B/L foot x-ray ordered Dressing to bilateral LE using xerofrom, ABD, DSD Ordered Santyl to be added to the dressing starting tomorrow Wound cultures: pending ID consult, IV abx as per ID Vascular consult, Dr. Macias B/L venous duplex: no evidence of DVT Abdominal angio (08/24): No abdominal aortic aneurysm. Scattered atherosclerotic plaque throughout the abdominal aorta and its main branches. 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 Diminutive caliber of the right renal artery. Right lower extremity: Scattered calcific and noncalcific plaque in the common femoral and superficial femoral arteries with area of focal severe stenosis due in the distal 1/3 se gment of the superficial femoral artery. Patent popliteal artery and below-knee arteries. Left lower extremity: Scattered calcific and noncalcific plaque in the common femoral and superficial femoral arteries with short segment area of severe stenosis in the distal 1/3 segment. Patent popliteal artery. Moderate segment stenosis of the proximal posterior tibial artery, stable with distal reconstitution to the level of the ankle. Patent peroneal and anterior tibial arteries with scattered calcific plaque. 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 No plans for surgical intervention from podiatry standpoint at this time Will continue with local wound care Podiatry will continue to follow up the patient while in-house Thank you for the podiatry consult and allowing to take part in patient care - Date & Time Date: 09/09/18 Time: 14:02
[2018-09-09] MEDS ORDERED: Vancomycin 1 gm/NS 200 ml 1 GM/200 ML BAG IVPB STA (14:43)
--- NOTE | 2018-09-09 14:47 | CP.PCM.CON ---
History of Present Illness - History of Present Illness History of Present Illness: Vascular Surgery Consult note. Dr. Kendall 73yo M with PMHx of PAD, CHF, DM, HTN, ESRD on HD, A.Fib, HLD who is here with suspected spontaneous bacterial peritonitis. Vascular surgery consult was requested by podiatry for eval for chronic diabetic foot ulcers. Patient reports no pain to bilateral lower legs and only reports abdominal distention associated with pain. He states that he has been followed by Dr. Kendall over the past month. He denies any numbness or tingling. Denies any fevers or chills. No CP/SOB. PMHx: PAD, CHF, DM, HTN, ESRD on HD, A.Fib, HLD PSHx: Cataracts, L ankle and foot debridements w skin grafts, AVF Family Hx: non-contributory Social hx:Denies Tobacco use, Denies ETOH use, Denies illicit drugs NKDA Review of Systems - Review of Systems All systems: reviewed and no additional remarkable complaints except - Constitutional Constitutional: As Per HPI Past Patient History - Infectious Disease Hx of Infectious Diseases: None - Tetanus Immunizations Tetanus Immunization: Unknown - Past Medical History & Family History Past Medical History?: Yes Past Family History: Reviewed and not pertinent - Past Social History Smoking Status: Never Smoked Alcohol: None Drugs: Denies - CARDIAC Hx Cardia Arrhythmia: Yes (A FIB/FLUTTER) Hx Congestive Heart Failure: Yes Hx Hypercholesterolemia: Yes Hx Hypertension: Yes - PULMONARY Hx Respiratory Disorders: No - NEUROLOGICAL Hx Neurological Disorder: No - HEENT Hx HEENT Problems: Yes Hx Cataracts: Yes (BILAT.) - RENAL Hx Chronic Kidney Disease: Yes - ENDOCRINE/METABOLIC Hx Diabetes Mellitus Type 1: Yes - HEMATOLOGICAL/ONCOLOGICAL Hx Blood Disorders: Yes Hx Blood Transfusions: Yes - INTEGUMENTARY Hx Dermatological Problems: No - MUSCULOSKELETAL/RHEUMATOLOGICAL Hx Arthritis: Yes - GASTROINTESTINAL Hx Gastrointestinal Disorders: Yes Other/Comment: BLOOD IN STOOL - GENITOURINARY/GYNECOLOGICAL Hx Genitourinary Disorders: Yes Hx Hematuria: Yes Hx Prostate Problems: Yes Hx Urinary Tract Infection: Yes - PSYCHIATRIC Hx Substance Use: No - SURGICAL HISTORY Hx Surgeries: Yes Hx Arteriovenous Shunt: Yes (AV FISTULA RIGHT ARM) Hx Cataract Extraction: Yes (BILAT.) Hx Eye Surgery: Yes (LEFT EYE) Other/Comment: SKIN GRAFT LEFT FOOT - ANESTHESIA Hx Anesthesia: Yes Hx Anesthesia Reactions: No Hx Malignant Hyperthermia: No Meds Allergies/Adverse Reactions: Allergies Allergy/AdvReac Type Severity Reaction Status Date / Time No Known Allergies Allergy Verified 09/07/18 19:02 - Medications Medications: Current Medications Apixaban (Eliquis) 2.5 mg PO BID [facility] Last Admin: 09/09/18 10:45 Dose: 2.5 mg Collagenase (Santyl) 1 gm TOP DAILY [facility] Dicyclomine HCl (Bentyl) 10 mg PO QID [facility] Last Admin: 09/09/18 14:12 Dose: 10 mg Piperacillin Sod/Tazobactam Sod (Zosyn 2.25 Gm Iv Premix) 2.25 gm in 50 mls @ 200 mls/hr IVPB Q12 [facility]; Protocol Stop: 09/09/18 22:14 Last Admin: 09/09/18 10:45 Dose: 200 mls/hr Vancomycin/Sodium Chloride (Vancomycin 1 Gm/Ns 200 Ml) 1 gm in 200 mls @ 133 mls/hr IVPB [facility]; Protocol Stop: 09/09/18 16:13 Rosuvastatin Calcium (Crestor) 5 mg PO HS [facility] Sevelamer Carbonate (Renvela) 800 mg PO TID [facility] Last Admin: 09/09/18 14:12 Dose: 800 mg Tamsulosin HCl (Flomax) 0.4 mg PO DAILY [facility] Last Admin: 09/09/18 10:45 Dose: 0.4 mg Vitamin B Complex/Vit C/Folic Acid (Nephro-Amita) 1 tab PO DAILY [facility] Last Admin: 09/09/18 10:45 Dose: 1 tab Physical Exam - Constitutional Appears: Non-toxic, Chronically Ill - Head Exam Additional comments: bilateral forehead echymosis from recent fall - ENT Exam ENT Exam: Mucous Membranes Moist - Respiratory Exam Respiratory Exam: NORMAL BREATHING PATTERN. absent: Accessory Muscle Use, Respiratory Distress - GI/Abdominal Exam GI & Abdominal Exam: Distended, Tenderness (mild diffuse tenderness) - Extremities Exam Additional comments: bilateral lower extremity with multiple diabetic foot wounds noted, dry. dopplerable DP signals bilaterally Results - Vital Signs Recent Vital Signs: Last Vital Signs Temp 97.2 F L 09/09/18 12:00 Pulse 71 09/09/18 14:00 Resp 17 09/09/18 14:00 BP 95/59 L 09/09/18 13:59 Pulse Ox 100 05/11/19 14:00 - Labs Result Diagrams: 09/09/18 05:52 09/09/18 05:47 Labs: Laboratory Results - last 24 hr 09/08/18 09/08/18 09/08/18 20:54 20:54 20:54 WBC 6.5 RBC 2.69 L Hgb 8.9 L Hct 27.3 L MCV 101.4 H MCH 33.1 H MCHC 32.7 L RDW 17.0 H Plt Count 119 L D MPV 8.9 Neut % (Auto) 91.7 H Lymph % (Auto) 2.2 L [place] % (Auto) 3.4 Eos % (Auto) 2.2 Baso % (Auto) 0.5 Neut # (Auto) 5.9 Lymph # (Auto) 0.1 L [place] # (Auto) 0.2 Eos # (Auto) 0.1 Baso # (Auto) 0.0 Neutrophils % (Manual) 91 H Band Neutrophils % 1 Lymphocytes % (Manual) 4 L Monocytes % (Manual) 3 Eosinophils % (Manual) 1 Basophils % (Manual) Toxic Granulation Platelet Estimate Slightly decreased L Large Platelets Polychromasia Hypochromasia (manual) Basophilic Stippling Anisocytosis (manual) Macrocytosis (manual) Sodium 136 Potassium 3.0 L Chloride 93 L Carbon Dioxide 30 Anion Gap 16 BUN 24 H Creatinine 2.4 H Est GFR ( Amer) 32 Est GFR (Non-Af Amer) 27 Random Glucose 86 Calcium 7.7 L Phosphorus 2.9 Magnesium 2.1 Total Bilirubin 0.8 AST 35 ALT 18 L Alkaline Phosphatase 101 Ammonia Total Protein 7.6 Albumin 3.2 L Globulin 4.4 H Albumin/Globulin Ratio 0.7 L Random Gentamicin 2.0 Random Vancomycin 32.3 09/09/18 09/09/18 09/09/18 05:47 05:52 12:25 WBC 7.1 RBC 3.01 L Hgb 10.0 L Hct 30.9 L MCV 102.8 H MCH 33.2 H MCHC 32.3 L RDW 17.4 H Plt Count 138 MPV 9.8 Neut % (Auto) 81.2 H Lymph % (Auto) 9.7 L [place] % (Auto) 5.2 Eos % (Auto) 3.6 Baso % (Auto) 0.3 Neut # (Auto) 5.8 Lymph # (Auto) 0.7 L [place] # (Auto) 0.4 Eos # (Auto) 0.3 Baso # (Auto) 0.0 Neutrophils % (Manual) 81 H Band Neutrophils % Lymphocytes % (Manual) 9 L Monocytes % (Manual) 4 Eosinophils % (Manual) 5 H Basophils % (Manual) 1 Toxic Granulation Present Platelet Estimate Normal Large Platelets Present Polychromasia Slight Hypochromasia (manual) Moderate Basophilic Stippling Slight Anisocytosis (manual) Moderate Macrocytosis (manual) Moderate Sodium 135 Potassium 3.7 Chloride 94 L Carbon Dioxide 29 Anion Gap 16 BUN 35 H Creatinine 3.5 H Est GFR ( Amer) 21 Est GFR (Non-Af Amer) 17 Random Glucose 32 L* D Calcium 7.4 L Phosphorus 4.0 Magnesium 2.2 Total Bilirubin 0.8 AST 46 ALT 21 Alkaline Phosphatase 102 Ammonia < 9 L Total Protein 7.2 Albumin 2.8 L Globulin 4.3 H Albumin/Globulin Ratio 0.6 L Random Gentamicin Random Vancomycin Assessment & Plan - Assessment and Plan (Free Text) Assessment: 73yo M with b/l PAD and foot ulcers -CT Angio Abd w ileofem runoff performed 08/24 with evidence of bilateral common femoral and superfical femoral artery disease with reconstitution distally, patent popliteal and below knee arteries. Plan: - No indications for any vascular surgery intervention warranted at this time - continue foot care as per podiatry recs - Acute illness management as per ICU and Primary teams Further recs as per Dr. Gilberto Yousif PGY2 surgery
--- NOTE | 2018-09-09 18:05 | RAD ---
Date of service: 09/09/2018 PROCEDURE: Bilateral Feet Radiographs. HISTORY: Bilateral foot ulcers. COMPARISON: None. TECHNIQUE: 6 views obtained. FINDINGS: BONES: Right Foot: . No evidence of acute displaced fracture nor dislocation. No definitive cortical destructive changes there appear to be soft tissue ulceration changes along the medial aspect 1st digit at the level of the mid and distal aspect of the proximal phalanx with mild surrounding soft tissue swelling; Rule out cellulitis Left Foot: No evidence of acute displaced fracture nor dislocation. No definitive cortical destructive changes. Questionable overlying gauze or bandage overlying the plantar and medial surface left 1st digit with mild soft tissue swelling. Rule out cellulitis JOINTS: Right Foot: Mild multi articular degenerative osteoarthritis. Left Foot: Mild multi articular degenerative osteoarthritis SOFT TISSUES: As above. Extensive vascular calcifications are present bilateral OTHER FINDINGS: None. IMPRESSION: No evidence of acute displaced fracture nor dislocation. No definitive evidence of cortical destructive changes seen. Questionable surface ulceration medial aspect 1st digit with surrounding soft tissue swelling; rule out cellulitis. Consider follow-up MRI for further evaluation. There also appears to be gauze or bandages overlying the medial and plantar surface left 1st digit; rule out cellulitis. Consider follow-up MRI further evaluation.
[2018-09-09] MEDS ORDERED: Glucagon Recombinant 1 mg Inj IM STA (21:33)
[2018-09-09] MEDS ORDERED: Dextrose 50% SYRINGE Inj (50 ml) IV STA (21:33)
[2018-09-10 05:44] LABS: BASO % 0.1 % (0.0-2.0); EOS # 0.5 K/uL (0.0-0.7); EOS % 6.6 % (0.0-4.0); HEMOGLOBIN 9.5 g/dL (12.0-18.0); LYMPH # 0.5 K/uL (1.0-4.3); LYMPH % 6.6 % (20.0-40.0); MEAN CELL VOLUME 102.9 fL (80.0-94.0); MEAN CORPUSCULAR HEMOGLOBIN 33.3 pg (27.0-31.0); MEAN CORPUSCULAR HGB CONC 32.4 g/dL (33.0-37.0); MEAN PLATELET VOLUME 9.3 fL (7.2-11.7); MONO # 0.5 K/uL (0.0-0.8); MONO % 5.9 % (0.0-10.0); NEUT # 6.4 K/uL (1.8-7.0); NEUT % 80.8 % (50.0-75.0); NRBC % 0.1 % (0.0-2.0); PLATELET COUNT 128 K/uL (130-400); RBC 2.85 Mil/uL (4.40-5.90); RED CELL DISTRIBUTION WIDTH 17.2 % (11.5-14.5)
[2018-09-10 06:18] LABS: ALB/GLOB RATIO 0.6 (1.0-2.1); ALBUMIN 2.9 g/dL (3.5-5.0); CALCIUM 7.1 mg/dl (8.6-10.4)
[2018-09-10] MEDS ORDERED: Dextrose 50% SYRINGE Inj (50 ml) IV STA (06:21)
[2018-09-10] MEDS ORDERED: Dextrose 50% SYRINGE Inj (50 ml) ONE (07:51)
[2018-09-10] MEDS ORDERED: Dextrose 50% SYRINGE Inj (50 ml) IV ONE ×2 (08:00→12:15)
[2018-09-10 08:39] LABS: ANISOCYTOSIS MODERATE; EOSINOPHIL 3 % (0-4); LYMPHOCYTE 10 % (20-40); MONOCYTE 9 % (0-10); NEUTROPHIL 78 % (50-75); TOTAL CELLS COUNTED 100
[2018-09-10 08:40] LABS: GIANT PLATELETS PRESENT; LARGE PLATELETS PRESENT; MICROCYTOSIS SLIGHT; PLATELET ESTIMATE SLIGHTLY DECREASED (NORMAL); TOXIC GRANULATION PRESENT
--- NOTE | 2018-09-10 08:58 | CP.CCUPN ---
CCU Subjective - Physician Review Events Since Last Encounter (Free Text): 09/10/18 08:56 Patient is a 73-year-old male with a history of diabetes hypertension end-stage renal disease and heart disease and peripheral vascular disease atrial flutter fibrillation and hyperlipidemia. Patient admitted to the hospital with a low blood pressure. He was also having distended abdomen. Hypotension was noted. Code sepsis was called. Patient was admitted to the intensive care unit with the low blood pressure. Patient yesterday was awake and responding. He was able to eat last night without any problem. Complaining of some abdominal discomfort. But did not have any nausea no vomiting On examination now: Patient is awake and he is answering simple questions. He is complaining of some abdominal pain. HEENT PERRLA Chest bilateral good air entry Abdominal distention and fluid thrill noted. Pedal edema 1+ noted. Right arm AV fistula noted I reviewed the patient's labs today. Hemoglobin is stable. Otherwise nonspecific labs. Assessment and recommendation: Patient is a 73-year-old male with a history of diabetes hypertension end-stage renal disease on dialysis heart failure Patient admitted with hypotension. Patient is currently being treated for possible sepsis. Source of origin most likely peritonitis subacute bacterial. Patient having frequent episodes of low blood sugar. Most likely secondary to liver disease. GI evaluation pending. We will start the patient on corticosteroid. DVT and GI prophylaxis overall prognosis is guarded and patient is critical. CCU Objective - Vital Signs / Intake & Output Vital Signs (Last 4 hours): Vital Signs Temp Pulse Resp BP Pulse Ox 09/10/18 08:00 97.3 F L 68 16 100 09/10/18 07:59 77 17 109/55 L 98 09/10/18 07:00 69 13 100 09/10/18 06:59 68 13 98/50 L 97 09/10/18 06:00 73 14 90/48 L 09/10/18 05:00 70 17 100 09/10/18 04:59 94/49 L Intake and Output (Last 8hrs): Intake & Output 09/09/18 09/10/18 09/10/18 22:59 06:59 14:59 Intake Total 540 100 120 Output Total 0 Balance 540 100 120 Weight 125 lb 9.6 oz Intake: Intake, IV Amount 200 Left Hand 200 Oral 340 100 120 Output: Urine 0 Urine, Voided 0 Other: # Bowel Movements 1 - Physical Exam Head: Positive for: Atraumatic, Normocephalic Pupils: Positive for: PERRL Extroacular Muscles: Positive for: EOMI Mouth: Positive for: Moist Mucous Membranes Respiratory/Chest: Positive for: Clear to Auscultation, Decreased Breath Sounds. Negative for: Respiratory Distress, Accessory Muscle Use, Rales, Rhonchi Cardiovascular: Positive for: Normal S1, S2 Abdomen: Positive for: Distention, Normal Bowel Sounds. Negative for: Tenderness, Rebound, Guarding Lower Extremity: Positive for: Tenderness Skin: Positive for: Other (multiple ulceratons at various stages of healing) Psychiatric: Positive for: Alert, Other (mildly confused, alert and oriented x 2) - Medications Active Medications: Active Medications Generic Name Dose Route Start Last Admin Trade Name Freq PRN Reason Stop Dose Admin Apixaban 2.5 mg 09/09/18 10:00 09/09/18 17:41 Eliquis PO 2.5 mg BID DON Administration Collagenase 1 gm 09/10/18 10:00 Santyl TOP DAILY [facility] Dicyclomine HCl 10 mg 09/09/18 14:00 09/09/18 21:06 Bentyl PO 10 mg QID DON Administration Vancomycin/Sodium Chloride 1 gm in 200 mls @ 133 mls/hr 09/11/18 09:00 Vancomycin 1 Gm/Ns 200 Ml IVPB 09/16/18 09:01 MWF [facility] Protocol Rosuvastatin Calcium 5 mg 09/09/18 22:00 09/09/18 21:06 Crestor PO 5 mg HS DON Administration Sevelamer Carbonate 800 mg 09/09/18 10:00 09/09/18 17:41 Renvela PO 800 mg TID DON Administration Tamsulosin HCl 0.4 mg 09/09/18 10:00 09/09/18 10:45 Flomax PO 0.4 mg DAILY DON Administration Vitamin B Complex/Vit C/Folic Acid 1 tab 09/09/18 10:00 09/09/18 10:45 Nephro-Amita PO 1 tab DAILY DON Administration - Patient Studies Lab Studies: Microbiology Studies 09/07/18 19:00 Blood Culture - Preliminary Blood NO GROWTH AFTER 48 HOURS 09/07/18 19:15 Blood Culture - Preliminary Blood NO GROWTH AFTER 48 HOURS 09/09/18 15:05 Gram Stain - Final Foot - Right 09/09/18 15:05 Gram Stain - Final Foot - Left Lab Studies 09/10/18 09/10/18 09/09/18 Range/Units 05:37 05:37 12:25 WBC 8.0 (4.8-10.8) K/uL RBC 2.85 L (4.40-5.90) Mil/uL Hgb 9.5 L (12.0-18.0) g/dL Hct 29.3 L (35.0-51.0) % MCV 102.9 H (80.0-94.0) fL MCH 33.3 H (27.0-31.0) pg MCHC 32.4 L (33.0-37.0) g/dL RDW 17.2 H (11.5-14.5) % Plt Count 128 L (130-400) K/uL MPV 9.3 (7.2-11.7) fL Neut % (Auto) 80.8 H (50.0-75.0) % Lymph % (Auto) 6.6 L (20.0-40.0) % [place] % (Auto) 5.9 (0.0-10.0) % Eos % (Auto) 6.6 H (0.0-4.0) % Baso % (Auto) 0.1 (0.0-2.0) % Neut # (Auto) 6.4 (1.8-7.0) K/uL Lymph # (Auto) 0.5 L (1.0-4.3) K/uL [place] # (Auto) 0.5 (0.0-0.8) K/uL Eos # (Auto) 0.5 (0.0-0.7) K/uL Baso # (Auto) 0.0 (0.0-0.2) K/uL Neutrophils % (Manual) 78 H (50-75) % Lymphocytes % (Manual) 10 L (20-40) % Monocytes % (Manual) 9 (0-10) % Eosinophils % (Manual) 3 (0-4) % Basophils % (Manual) (0-2) % Toxic Granulation Present Platelet Estimate Slightly decreased L (NORMAL) Large Platelets Present Giant Platelets Present Polychromasia Hypochromasia (manual) Basophilic Stippling Slight Anisocytosis (manual) Moderate Microcytosis (manual) Slight Macrocytosis (manual) Moderate Sodium 133 (132-148) mmol/L Potassium 3.6 (3.6-5.2) mmol/L Chloride 93 L (98-107) mmol/L Carbon Dioxide 26 (22-30) mmol/L Anion Gap 18 (10-20) BUN 38 H (9-20) mg/dL Creatinine 4.1 H (0.8-1.5) mg/dL Est GFR ( Amer) 17 Est GFR (Non-Af Amer) 14 Random Glucose 27 L* (75-110) mg/dL Calcium 7.1 L (8.6-10.4) mg/dl Phosphorus 4.9 H (2.5-4.5) mg/dL Magnesium 2.2 (1.6-2.3) mg/dL Total Bilirubin 0.8 (0.2-1.3) mg/dL AST 39 (17-59) U/L ALT 15 L D (21-72) U/L Alkaline Phosphatase 94 (38-126) U/L Ammonia < 9 L (9-33) umol/L Total Protein 7.4 (6.3-8.3) g/dL Albumin 2.9 L (3.5-5.0) g/dL Globulin 4.5 H (2.2-3.9) gm/dL Albumin/Globulin Ratio 0.6 L (1.0-2.1) 09/09/18 Range/Units 05:52 WBC (4.8-10.8) K/uL RBC (4.40-5.90) Mil/uL Hgb (12.0-18.0) g/dL Hct (35.0-51.0) % MCV (80.0-94.0) fL MCH (27.0-31.0) pg MCHC (33.0-37.0) g/dL RDW (11.5-14.5) % Plt Count (130-400) K/uL MPV (7.2-11.7) fL Neut % (Auto) (50.0-75.0) % Lymph % (Auto) (20.0-40.0) % [place] % (Auto) (0.0-10.0) % Eos % (Auto) (0.0-4.0) % Baso % (Auto) (0.0-2.0) % Neut # (Auto) (1.8-7.0) K/uL Lymph # (Auto) (1.0-4.3) K/uL [place] # (Auto) (0.0-0.8) K/uL Eos # (Auto) (0.0-0.7) K/uL Baso # (Auto) (0.0-0.2) K/uL Neutrophils % (Manual) 81 H (50-75) % Lymphocytes % (Manual) 9 L (20-40) % Monocytes % (Manual) 4 (0-10) % Eosinophils % (Manual) 5 H (0-4) % Basophils % (Manual) 1 (0-2) % Toxic Granulation Present Platelet Estimate Normal (NORMAL) Large Platelets Present Giant Platelets Polychromasia Slight Hypochromasia (manual) Moderate Basophilic Stippling Slight Anisocytosis (manual) Moderate Microcytosis (manual) Macrocytosis (manual) Moderate Sodium (132-148) mmol/L Potassium (3.6-5.2) mmol/L Chloride (98-107) mmol/L Carbon Dioxide (22-30) mmol/L Anion Gap (10-20) BUN (9-20) mg/dL Creatinine (0.8-1.5) mg/dL Est GFR ( Amer) Est GFR (Non-Af Amer) Random Glucose (75-110) mg/dL Calcium (8.6-10.4) mg/dl Phosphorus (2.5-4.5) mg/dL Magnesium (1.6-2.3) mg/dL Total Bilirubin (0.2-1.3) mg/dL AST (17-59) U/L ALT (21-72) U/L Alkaline Phosphatase (38-126) U/L Ammonia (9-33) umol/L Total Protein (6.3-8.3) g/dL Albumin (3.5-5.0) g/dL Globulin (2.2-3.9) gm/dL Albumin/Globulin Ratio (1.0-2.1) Laboratory Results - last 24 hr 09/09/18 09/09/18 09/10/18 05:52 12:25 05:37 WBC 8.0 RBC 2.85 L Hgb 9.5 L Hct 29.3 L MCV 102.9 H MCH 33.3 H MCHC 32.4 L RDW 17.2 H Plt Count 128 L MPV 9.3 Neut % (Auto) 80.8 H Lymph % (Auto) 6.6 L [place] % (Auto) 5.9 Eos % (Auto) 6.6 H Baso % (Auto) 0.1 Neut # (Auto) 6.4 Lymph # (Auto) 0.5 L [place] # (Auto) 0.5 Eos # (Auto) 0.5 Baso # (Auto) 0.0 Neutrophils % (Manual) 81 H 78 H Lymphocytes % (Manual) 9 L 10 L Monocytes % (Manual) 4 9 Eosinophils % (Manual) 5 H 3 Basophils % (Manual) 1 Toxic Granulation Present Present Platelet Estimate Normal Slightly decreased L Large Platelets Present Present Giant Platelets Present Polychromasia Slight Hypochromasia (manual) Moderate Basophilic Stippling Slight Slight Anisocytosis (manual) Moderate Moderate Microcytosis (manual) Slight Macrocytosis (manual) Moderate Moderate Sodium Potassium Chloride Carbon Dioxide Anion Gap BUN Creatinine Est GFR ( Amer) Est GFR (Non-Af Amer) Random Glucose Calcium Phosphorus Magnesium Total Bilirubin AST ALT Alkaline Phosphatase Ammonia < 9 L Total Protein Albumin Globulin Albumin/Globulin Ratio 09/10/18 05:37 WBC RBC Hgb Hct MCV MCH MCHC RDW Plt Count MPV Neut % (Auto) Lymph % (Auto) [place] % (Auto) Eos % (Auto) Baso % (Auto) Neut # (Auto) Lymph # (Auto) [place] # (Auto) Eos # (Auto) Baso # (Auto) Neutrophils % (Manual) Lymphocytes % (Manual) Monocytes % (Manual) Eosinophils % (Manual) Basophils % (Manual) Toxic Granulation Platelet Estimate Large Platelets Giant Platelets Polychromasia Hypochromasia (manual) Basophilic Stippling Anisocytosis (manual) Microcytosis (manual) Macrocytosis (manual) Sodium 133 Potassium 3.6 Chloride 93 L Carbon Dioxide 26 Anion Gap 18 BUN 38 H Creatinine 4.1 H Est GFR ( Amer) 17 Est GFR (Non-Af Amer) 14 Random Glucose 27 L* Calcium 7.1 L Phosphorus 4.9 H Magnesium 2.2 Total Bilirubin 0.8 AST 39 ALT 15 L D Alkaline Phosphatase 94 Ammonia Total Protein 7.4 Albumin 2.9 L Globulin 4.5 H Albumin/Globulin Ratio 0.6 L Radiology Impressions: Radiology Impressions Foot X-Ray 09/09/18 14:24 IMPRESSION: No evidence of acute displaced fracture nor dislocation. No definitive evidence of cortical destructive changes seen. Questionable surface ulceration medial aspect 1st digit with surrounding soft tissue swelling; rule out cellulitis. Consider follow-up MRI for further evaluation. There also appears to be gauze or bandages overlying the medial and plantar surface left 1st digit; rule out cellulitis. Consider follow-up MRI further evaluation. Fingerstick Blood Sugar Results: 46 Critical Care Progress Note - Nutrition Nutrition: Nutrition Category Date Time Status Renal Diet [DIET] Diets 09/09/18 Lunch Active
[2018-09-10] MEDS: MethylPREDNISolone 40 mg Vial IVP SCH ×2 (09:04→21:06)
[2018-09-10] MEDS: Multivitamin Vitamin B Complex (Nephro-Vite) Tab PO SCH (09:05)
--- NOTE | 2018-09-10 10:18 | CP.PCM.CON ---
<Babatunde Montoya - Last Filed: 09/10/18 10:50> History of Present Illness - History of Present Illness History of Present Illness: PGY-4 GI Fellow Consult Note 73-year-old Spanish male with a past medical history of PAD, CHF (BiV CHF, LVEF 50% with decreased RV systolic function and pulmonary hypertension), ESRD on HD, Atrial fibrillation (on Apixaban), hyperlipidemia, diabetes (c/b foot ulcers), mild dementia, who was admitted on 09/06/18 after a fall in his care home. He was found to have low blood pressure and anasarca. Therefore, he was admitted for further evaluation and treated for possible sepsis related to questionable as SBP. G.I. consulted for further evaluation. He states of the last several days that he has had worsening abdominal distention. He states he feels like a balloon." He states his abdomen has never been this distended before. He denies ever having any paracentesis before. He denied any weight loss, dysphasia, nausea, vomiting, chest pain, shortness of breath or overt abdominal pain but rather just a "fullness." He states his last bowel movement yesterday was brown. He had a colonoscopy in November 2017 with four hyperplastic polyps, diverticulosis, internal hemorrhoids. No prior EGD. Medical history: see above Surgical history: cataract surgery, left ankle surgery, AVF Medications: reviewed and chart Family history: denies any family history of G.I./liver problems Social history: states he used to drink alcohol socially but has not drink a lcohol in months, denied tobacco or illicit Allergies: no known drug allergies Past Patient History - Infectious Disease Hx of Infectious Diseases: None - Tetanus Immunizations Tetanus Immunization: Unknown - Past Medical History & Family History Past Medical History?: Yes Past Family History: Reviewed and not pertinent - Past Social History Smoking Status: Never Smoked Alcohol: None Drugs: Denies - CARDIAC Hx Cardia Arrhythmia: Yes (A FIB/FLUTTER) Hx Congestive Heart Failure: Yes Hx Hypercholesterolemia: Yes Hx Hypertension: Yes - PULMONARY Hx Respiratory Disorders: No - NEUROLOGICAL Hx Neurological Disorder: No - HEENT Hx HEENT Problems: Yes Hx Cataracts: Yes (BILAT.) - RENAL Hx Chronic Kidney Disease: Yes - ENDOCRINE/METABOLIC Hx Diabetes Mellitus Type 1: Yes - HEMATOLOGICAL/ONCOLOGICAL Hx Blood Disorders: Yes Hx Blood Transfusions: Yes - INTEGUMENTARY Hx Dermatological Problems: No - MUSCULOSKELETAL/RHEUMATOLOGICAL Hx Arthritis: Yes - GASTROINTESTINAL Hx Gastrointestinal Disorders: Yes Other/Comment: BLOOD IN STOOL - GENITOURINARY/GYNECOLOGICAL Hx Genitourinary Disorders: Yes Hx Hematuria: Yes Hx Prostate Problems: Yes Hx Urinary Tract Infection: Yes - PSYCHIATRIC Hx Substance Use: No - SURGICAL HISTORY Hx Surgeries: Yes Hx Arteriovenous Shunt: Yes (AV FISTULA RIGHT ARM) Hx Cataract Extraction: Yes (BILAT.) Hx Eye Surgery: Yes (LEFT EYE) Other/Comment: SKIN GRAFT LEFT FOOT - ANESTHESIA Hx Anesthesia: Yes Hx Anesthesia Reactions: No Hx Malignant Hyperthermia: No Meds Allergies/Adverse Reactions: Allergies Allergy/AdvReac Type Severity Reaction Status Date / Time No Known Allergies Allergy Verified 09/07/18 19:02 - Medications Medications: Current Medications Apixaban (Eliquis) 2.5 mg PO BID [facility] Last Admin: 09/10/18 09:05 Dose: 2.5 mg Collagenase (Santyl) 1 gm TOP DAILY [facility] Dicyclomine HCl (Bentyl) 10 mg PO QID [facility] Last Admin: 09/10/18 09:05 Dose: 10 mg Vancomycin/Sodium Chloride (Vancomycin 1 Gm/Ns 200 Ml) 1 gm in 200 mls @ 133 mls/hr IVPB MWF [facility]; Protocol Stop: 09/16/18 09:01 Lactulose (Enulose) 15 gm PO BID [facility] Last Admin: 09/10/18 10:06 Dose: 15 gm Methylprednisolone (Solu-Medrol) 20 mg IVP Q12 [facility] Last Admin: 09/10/18 09:04 Dose: 20 mg Rosuvastatin Calcium (Crestor) 5 mg PO HS [facility] Last Admin: 09/09/18 21:06 Dose: 5 mg Sevelamer Carbonate (Renvela) 800 mg PO TID [facility] Last Admin: 09/10/18 09:05 Dose: 800 mg Tamsulosin HCl (Flomax) 0.4 mg PO DAILY [facility] Last Admin: 09/10/18 09:05 Dose: 0.4 mg Vitamin B Complex/Vit C/Folic Acid (Nephro-Amita) 1 tab PO DAILY [facility] Last Admin: 09/10/18 09:05 Dose: 1 tab Physical Exam - Constitutional Appears: No Acute Distress, Chronically Ill - Head Exam Head Exam: NORMAL INSPECTION Additional comments: scattered ecchymoses on face - Eye Exam Eye Exam: EOMI. absent: Scleral icterus - ENT Exam ENT Exam: Mucous Membranes Moist. absent: Mucous Membranes Dry - Respiratory Exam Respiratory Exam: NORMAL BREATHING PATTERN. absent: Accessory Muscle Use - Cardiovascular Exam Additional comments: Irregularly irregular rate and rhythm - GI/Abdominal Exam GI & Abdominal Exam: Distended, Firm, Hernia (small reducible umb hernia), Normal Bowel Sounds. absent: Bruit, Diminished Bowel Sounds, Guarding, Soft, Tenderness (massively distend, tense limiting exam, flank fullness, dull to percussion in lower quads, tympanic in upper quads) - Rectal Exam Rectal Exam: Deferred - Extremities Exam Extremities exam: Negative for: pedal edema Additional comments: Feet wrapped in dressings - Neurological Exam Neurological exam: Alert, CN II-XII Intact - Psychiatric Exam Psychiatric exam: Normal Affect, Normal Mood - Skin Skin Exam: Normal Color, Warm Results - Vital Signs Recent Vital Signs: Last Vital Signs Temp 97.3 F L 09/10/18 08:00 Pulse 79 09/10/18 09:00 Resp 13 09/10/18 09:00 BP 99/47 L 09/10/18 09:00 Pulse Ox 97 09/10/18 09:00 - Labs Result Diagrams: 09/10/18 05:37 09/10/18 05:37 Labs: Laboratory Results - last 24 hr 09/09/18 09/10/18 09/10/18 12:25 05:37 05:37 WBC 8.0 RBC 2.85 L Hgb 9.5 L Hct 29.3 L MCV 102.9 H MCH 33.3 H MCHC 32.4 L RDW 17.2 H Plt Count 128 L MPV 9.3 Neut % (Auto) 80.8 H Lymph % (Auto) 6.6 L [place] % (Auto) 5.9 Eos % (Auto) 6.6 H Baso % (Auto) 0.1 Neut # (Auto) 6.4 Lymph # (Auto) 0.5 L [place] # (Auto) 0.5 Eos # (Auto) 0.5 Baso # (Auto) 0.0 Neutrophils % (Manual) 78 H Lymphocytes % (Manual) 10 L Monocytes % (Manual) 9 Eosinophils % (Manual) 3 Toxic Granulation Present Platelet Estimate Slightly decreased L Large Platelets Present Giant Platelets Present Basophilic Stippling Slight Anisocytosis (manual) Moderate Microcytosis (manual) Slight Macrocytosis (manual) Moderate Sodium 133 Potassium 3.6 Chloride 93 L Carbon Dioxide 26 Anion Gap 18 BUN 38 H Creatinine 4.1 H Est GFR ( Amer) 17 Est GFR (Non-Af Amer) 14 Random Glucose 27 L* Calcium 7.1 L Phosphorus 4.9 H Magnesium 2.2 Total Bilirubin 0.8 AST 39 ALT 15 L D Alkaline Phosphatase 94 Ammonia < 9 L Total Protein 7.4 Albumin 2.9 L Globulin 4.5 H Albumin/Globulin Ratio 0.6 L Assessment & Plan - Assessment and Plan (Free Text) Assessment: 73-year-old Spanish male with a past medical history of PhD, by ventricular CHF, pulmonary hypertension, SRD, atrial for relation, diabetes who is admitted after a fall found to have low blood pressure, anasarca and ascites. G.I. consult it for questionable SPP. #Ascites: Patient has multiple risk factors for ascites of various ideologies including but not limited to cardiac, nephrogenic, hepatic cirrhosis. Given r ight sided heart failure with severe pulmonary hypertension, favor cardiac induced at this point. Liver is fatty on US with cirrhosis on CT, no splenomegaly. Unclear if true SBP at this time, but up to 30% are asymptomatic other than tense ascites. Pt reports that he does not make urine; therefore, diuretics likely low yield. Plan: Diagnostic para today Check ascitic fluid cell count and differential, total protein, albumin - Will benefit from therapeutic after etiology determined and discussion with primary/consultants - Recommend Cardiology consult - Check BNP - Low Na diet Pt seen and examined with Dr. Anderson; please see attestation for further recs/changes. <Carissa Anderson - Last Filed: 09/10/18 14:53> Meds - Medications Medications: Current Medications Apixaban (Eliquis) 2.5 mg PO BID [facility] Last Admin: 09/10/18 09:05 Dose: 2.5 mg Collagenase (Santyl) 1 gm TOP DAILY [facility] Dicyclomine HCl (Bentyl) 10 mg PO QID [facility] Last Admin: 09/10/18 13:11 Dose: 10 mg Vancomycin/Sodium Chloride (Vancomycin 1 Gm/Ns 200 Ml) 1 gm in 200 mls @ 133 mls/hr IVPB [facility]; Protocol Stop: 09/16/18 09:01 Lactulose (Enulose) 15 gm PO BID [facility] Last Admin: 09/10/18 10:06 Dose: 15 gm Methylprednisolone (Solu-Medrol) 20 mg IVP Q12 [facility] Last Admin: 09/10/18 09:04 Dose: 20 mg Rosuvastatin Calcium (Crestor) 5 mg PO HS [facility] Last Admin: 09/09/18 21:06 Dose: 5 mg Sevelamer Carbonate (Renvela) 800 mg PO TID [facility] Last Admin: 09/10/18 13:11 Dose: 800 mg Tamsulosin HCl (Flomax) 0.4 mg PO DAILY [facility] Last Admin: 09/10/18 09:05 Dose: 0.4 mg Vitamin B Complex/Vit C/Folic Acid (Nephro-Amita) 1 tab PO DAILY [facility] Last Admin: 09/10/18 09:05 Dose: 1 tab Results - Vital Signs Recent Vital Signs: Last Vital Signs Temp 97.4 F L 09/10/18 12:00 Pulse 81 09/10/18 14:00 Resp 20 09/10/18 14:00 BP 127/65 09/10/18 11:59 Pulse Ox 100 09/10/18 14:00 - Labs Result Diagrams: 09/10/18 05:37 09/10/18 05:37 Labs: Laboratory Results - last 24 hr 09/10/18 09/10/18 05:37 05:37 WBC 8.0 RBC 2.85 L Hgb 9.5 L Hct 29.3 L MCV 102.9 H MCH 33.3 H MCHC 32.4 L RDW 17.2 H Plt Count 128 L MPV 9.3 Neut % (Auto) 80.8 H Lymph % (Auto) 6.6 L [place] % (Auto) 5.9 Eos % (Auto) 6.6 H Baso % (Auto) 0.1 Neut # (Auto) 6.4 Lymph # (Auto) 0.5 L [place] # (Auto) 0.5 Eos # (Auto) 0.5 Baso # (Auto) 0.0 Neutrophils % (Manual) 78 H Lymphocytes % (Manual) 10 L Monocytes % (Manual) 9 Eosinophils % (Manual) 3 Toxic Granulation Present Platelet Estimate Slightly decreased L Large Platelets Present Giant Platelets Present Basophilic Stippling Slight Anisocytosis (manual) Moderate Microcytosis (manual) Slight Macrocytosis (manual) Moderate Sodium 133 Potassium 3.6 Chloride 93 L Carbon Dioxide 26 Anion Gap 18 BUN 38 H Creatinine 4.1 H Est GFR ( Amer) 17 Est GFR (Non-Af Amer) 14 Random Glucose 27 L* Calcium 7.1 L Phosphorus 4.9 H Magnesium 2.2 Total Bilirubin 0.8 AST 39 ALT 15 L D Alkaline Phosphatase 94 Total Protein 7.4 Albumin 2.9 L Globulin 4.5 H Albumin/Globulin Ratio 0.6 L Attending/Attestation - Attestation I have personally seen and examined this patient.: Yes I have fully participated in the care of the patient.: Yes I have reviewed all pertinent clinical information: Yes Notes (Text): 09/10/18 14:36 I have seen and examined the pt with the GI fellow. 73 yo Spanish M with PMH of ESRD on HD, afib, DM, R sided heart failure, severe pulmonary HTN p/w hypot ension s/p fall. Of note, pt with worsening ascites x 2-3 days. Started on abx per primary team for possible SBP. GI consulted to evaluate for possible SBP and etiology of ascites. General: appears frail, elderly Abd: tense ascites Plan: -S/p bedside paracentesis (see details in fellow's note). 20 cc serous fluid drained w/o complication -suspect with worsening R sided heart failure and with cardiac cirrhosis, doubt SBP -f/u cell count, albumin, tprotein -as pt does not urinate, may need adjustment in HD for fluid removal -add on BNP -consider cardiology consult with repeat ECHO
[2018-09-10] MEDS: Collagenase 250 Units/gm Ointment(30 gm) TOP SCH (10:30)
--- NOTE | 2018-09-10 11:15 | CP.PCM.PN ---
Subjective - Date & Time of Evaluation Date of Evaluation: 09/10/18 Time of Evaluation: 11:10 - Subjective Subjective: Podiatry progress Note: Dr. Cavanaugh 73 year old male patient seen and evaluated at bedside in the ICU for worsening bilateral LE ulcerations (L>R). Patient states that He doesn't have pain in his feet at the ulceration site. He states that his abdomen is distended and bothers him. Denies of having any overnight F/N/V/C/SOB. He denies any other pedal complains at this time. Objective - Vital Signs/Intake and Output Vital Signs (last 24 hours): Temp Pulse Resp BP Pulse Ox 97.3 F L 79 15 117/48 L 100 09/10/18 08:00 09/10/18 11:00 09/10/18 11:00 09/10/18 11:00 09/10/18 10:02 Intake and Output: 09/10/18 09/10/18 06:59 18:59 Intake Total 200 240 Balance 200 240 - Medications Medications: Current Medications Apixaban (Eliquis) 2.5 mg PO BID [facility] Last Admin: 09/10/18 09:05 Dose: 2.5 mg Collagenase (Santyl) 1 gm TOP DAILY [facility] Dicyclomine HCl (Bentyl) 10 mg PO QID [facility] Last Admin: 09/10/18 09:05 Dose: 10 mg Vancomycin/Sodium Chloride (Vancomycin 1 Gm/Ns 200 Ml) 1 gm in 200 mls @ 133 mls/hr IVPB MWF [facility]; Protocol Stop: 09/16/18 09:01 Lactulose (Enulose) 15 gm PO BID [facility] Last Admin: 09/10/18 10:06 Dose: 15 gm Methylprednisolone (Solu-Medrol) 20 mg IVP Q12 [facility] Last Admin: 09/10/18 09:04 Dose: 20 mg Rosuvastatin Calcium (Crestor) 5 mg PO HS [facility] Last Admin: 09/09/18 21:06 Dose: 5 mg Sevelamer Carbonate (Renvela) 800 mg PO TID [facility] Last Admin: 09/10/18 09:05 Dose: 800 mg Tamsulosin HCl (Flomax) 0.4 mg PO DAILY [facility] Last Admin: 09/10/18 09:05 Dose: 0.4 mg Vitamin B Complex/Vit C/Folic Acid (Nephro-Amita) 1 tab PO DAILY [facility] Last Admin: 09/10/18 09:05 Dose: 1 tab - Labs Labs: 09/10/18 05:37 09/10/18 05:37 PT 14.7 SECONDS (9.7-12.2) H 09/08/18 10:47 INR 1.3 09/08/18 10:47 APTT 52.5 SECONDS (21-34) H D 09/08/18 10:47 - Head Exam Additional comments: Head trauma with swelling and ecchymosis of the eyebrows - Extremities Exam Additional comments: B/L Lower extremity focused exam: VASC: DP/PT pulses are non-palpable at this time. Temperature gradient warm to warm b/l. Cap refill slightly delayed > 3 sec to all digits on the left and approximately 3 sec to the right. NEURO: Protective sensation slightly diminished. DERM: RLE: An ulcer noted on the medial aspect of the 1st MPJ covered with black eschar 2 cm in diameter with hyperkeratotic edge, Base is mixed fibronecrotic, No drainage, No malodor, No probe to bone, No undermining. Another non stageable ulcer noted on the heel measuring 5 cm X 4 cm covered with black eschar, No drainage, No malodor, No probe to bone, No undermining. LLE: An ulcer noted on the medial aspect of the 1st MPJ covered with black esch ar 2 cm X 1 cm, Base is necrotic, No drainage, No malodor, No probe to bone, No undermining. A smaller ulcer noted on the medial side of the hallux 0.5 cm in diameter covered with black eschar, Base is necrotic, No drainage, No malodor, No probe to bone, No undermining. 2 ulcerations noted on the plantar aspect of the 4th and 5th MPJ measuring 2 cm x 1 cm and 1.5 cm X 0.8 cm concequently covered with black eschar, Base is necrotic, No drainage, No malodor, No probe to bone, No undermining. Another non stageable ulcer noted on the heel measuring 5.5 cm X 4.2 cm covered with black eschar, No drainage, No malodor, No probe to bone, No undermining. MSK: No tenderness to palpation of B/L lower extremity ulcerations. MMT 3/5 b/l to all groups - Neurological Exam Neurological Exam: Alert, Awake, Oriented x3 Assessment and Plan - Assessment and Plan (Free Text) Assessment: 73 year old male patient seen and evaluated at bedside in the ICU for worsening bilateral LE ulcerations (L>R). Plan: Patient seen and evaluated in ICU Discussed plan with Dr. Cavanaugh Charts, labs and vitals reviewed; Afebrile, No leukocytosis B/L foot x-rays: No evidence of acute displaced fracture nor dislocation. No definitive evidence of cortical destructive changes seen. Questionable surface ulceration medial aspect 1st digit with surrounding soft tissue swelling; rule out cellulitis. Consider follow-up MRI for further evaluation. There also appears to be gauze or bandages overlying the medial and plantar surface left 1st digit; rule out cellulitis. Dressing to bilateral LE using Santyl, ABD, DSD Wound cultures: pending ID consult, IV abx as per ID Vascular consult, Dr. Macias B/L venous duplex: no evidence of DVT Abdominal angio (08/24): No abdominal aortic aneurysm. Scattered at herosclerotic plaque throughout the abdominal aorta and its main branches. 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 Diminutive caliber of the right renal artery. Right lower extremity: Scattered calcific and noncalcific plaque in the common femoral and superficial femoral arteries with area of focal severe stenosis due in the distal 1/3 segment of the superficial femoral artery. Patent popliteal artery and below-knee arteries. Left lower extremity: Scattered calcific and noncalcific plaque in the common femoral and superficial femoral arteries with short segment area of severe stenosis in the distal 1/3 segment. Patent popliteal artery. Moderate segment stenosis of the proximal posterior tibial artery, stable with distal reconstitution to the level of the ankle. Patent peroneal and anterior tibial arteries with scattered calcific plaque. 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 No plans for surgical intervention from podiatry standpoint at this time Will continue with local wound care Podiatry will continue to follow up the patient while in-house
--- NOTE | 2018-09-10 11:45 | CP.PCM.PN ---
Subjective - Date & Time of Evaluation Date of Evaluation: 09/10/18 Time of Evaluation: 11:30 - Subjective Subjective: SEE OTHER DAILY PROGRESS NOTE Objective - Vital Signs/Intake and Output Vital Signs (last 24 hours): Temp Pulse Resp BP Pulse Ox 97.3 F L 79 15 117/48 L 100 09/10/18 08:00 09/10/18 11:00 09/10/18 11:00 09/10/18 11:00 09/10/18 10:02 Intake and Output: 09/10/18 09/10/18 06:59 18:59 Intake Total 200 240 Balance 200 240 - Medications Medications: Current Medications Apixaban (Eliquis) 2.5 mg PO BID [facility] Last Admin: 09/10/18 09:05 Dose: 2.5 mg Collagenase (Santyl) 1 gm TOP DAILY [facility] Dicyclomine HCl (Bentyl) 10 mg PO QID [facility] Last Admin: 09/10/18 09:05 Dose: 10 mg Vancomycin/Sodium Chloride (Vancomycin 1 Gm/Ns 200 Ml) 1 gm in 200 mls @ 133 mls/hr IVPB MWF [facility]; Protocol Stop: 09/16/18 09:01 Lactulose (Enulose) 15 gm PO BID [facility] Last Admin: 09/10/18 10:06 Dose: 15 gm Methylprednisolone (Solu-Medrol) 20 mg IVP Q12 [facility] Last Admin: 09/10/18 09:04 Dose: 20 mg Rosuvastatin Calcium (Crestor) 5 mg PO HS [facility] Last Admin: 09/09/18 21:06 Dose: 5 mg Sevelamer Carbonate (Renvela) 800 mg PO TID [facility] Last Admin: 09/10/18 09:05 Dose: 800 mg Tamsulosin HCl (Flomax) 0.4 mg PO DAILY [facility] Last Admin: 09/10/18 09:05 Dose: 0.4 mg Vitamin B Complex/Vit C/Folic Acid (Nephro-Amita) 1 tab PO DAILY [facility] Last Admin: 09/10/18 09:05 Dose: 1 tab - Labs Labs: 09/10/18 05:37 09/10/18 05:37 PT 14.7 SECONDS (9.7-12.2) H 09/08/18 10:47 INR 1.3 09/08/18 10:47 APTT 52.5 SECONDS (21-34) H D 09/08/18 10:47 Procedures Attestation:: I certify that I have explained the specified Operation(s) or Procedure(s), risks, benefits and reasonable alternatives to the Patient and/or other person responsible. The opportunity was given to ask questions and all questions answered - Paracentesis Consent Obtained: verbal consent, written consent Time Out Performed: Yes Indication: Ascites, possible spontaneous bacterial peritonitis Procedure: diagnostic paracentesis Location: LLQ Local Anesthetic Used: lidocaine 2% (Paracentesis performed as detailed with 20 mL serous fluid obtained and sent to lab for evaluation. Pt tolerated procedure well.)
--- NOTE | 2018-09-10 14:40 | CP.PCM.CON ---
History of Present Illness - History of Present Illness History of Present Illness: seen on rounds patient examined chart reviewed cultures noted IV rx reordered Past Patient History - Infectious Disease Hx of Infectious Diseases: None - Tetanus Immunizations Tetanus Immunization: Unknown - Past Medical History & Family History Past Medical History?: Yes Past Family History: Reviewed and not pertinent - Past Social History Smoking Status: Never Smoked Alcohol: None Drugs: Denies - CARDIAC Hx Cardia Arrhythmia: Yes (A FIB/FLUTTER) Hx Congestive Heart Failure: Yes Hx Hypercholesterolemia: Yes Hx Hypertension: Yes - PULMONARY Hx Respiratory Disorders: No - NEUROLOGICAL Hx Neurological Disorder: No - HEENT Hx HEENT Problems: Yes Hx Cataracts: Yes (BILAT.) - RENAL Hx Chronic Kidney Disease: Yes - ENDOCRINE/METABOLIC Hx Diabetes Mellitus Type 1: Yes - HEMATOLOGICAL/ONCOLOGICAL Hx Blood Disorders: Yes Hx Blood Transfusions: Yes - INTEGUMENTARY Hx Dermatological Problems: No - MUSCULOSKELETAL/RHEUMATOLOGICAL Hx Arthritis: Yes - GASTROINTESTINAL Hx Gastrointestinal Disorders: Yes Other/Comment: BLOOD IN STOOL - GENITOURINARY/GYNECOLOGICAL Hx Genitourinary Disorders: Yes Hx Hematuria: Yes Hx Prostate Problems: Yes Hx Urinary Tract Infection: Yes - PSYCHIATRIC Hx Substance Use: No - SURGICAL HISTORY Hx Surgeries: Yes Hx Arteriovenous Shunt: Yes (AV FISTULA RIGHT ARM) Hx Cataract Extraction: Yes (BILAT.) Hx Eye Surgery: Yes (LEFT EYE) Other/Comment: SKIN GRAFT LEFT FOOT - ANESTHESIA Hx Anesthesia: Yes Hx Anesthesia Reactions: No Hx Malignant Hyperthermia: No Meds Allergies/Adverse Reactions: Allergies Allergy/AdvReac Type Severity Reaction Status Date / Time No Known Allergies Allergy Verified 09/07/18 19:02 - Medications Medications: Current Medications Apixaban (Eliquis) 2.5 mg PO BID [facility] Last Admin: 09/10/18 09:05 Dose: 2.5 mg Collagenase (Santyl) 1 gm TOP DAILY [facility] Dicyclomine HCl (Bentyl) 10 mg PO QID [facility] Last Admin: 09/10/18 13:11 Dose: 10 mg Vancomycin/Sodium Chloride (Vancomycin 1 Gm/Ns 200 Ml) 1 gm in 200 mls @ 133 mls[facility]; Protocol Stop: 09/16/18 09:01 Lactulose (Enulose) 15 gm PO BID [facility] Last Admin: 09/10/18 10:06 Dose: 15 gm Methylprednisolone (Solu-Medrol) 20 mg IVP Q12 [facility] Last Admin: 09/10/18 09:04 Dose: 20 mg Rosuvastatin Calcium (Crestor) 5 mg PO HS [facility] Last Admin: 09/09/18 21:06 Dose: 5 mg Sevelamer Carbonate (Renvela) 800 mg PO TID [facility] Last Admin: 09/10/18 13:11 Dose: 800 mg Tamsulosin HCl (Flomax) 0.4 mg PO DAILY [facility] Last Admin: 09/10/18 09:05 Dose: 0.4 mg Vitamin B Complex/Vit C/Folic Acid (Nephro-Amita) 1 tab PO DAILY [facility] Last Admin: 09/10/18 09:05 Dose: 1 tab Results - Vital Signs Recent Vital Signs: Last Vital Signs Temp 97.4 F L 09/10/18 12:00 Pulse 81 09/10/18 14:00 Resp 20 09/10/18 14:00 BP 127/65 09/10/18 11:59 Pulse Ox 100 09/10/18 14:00 - Labs Result Diagrams: 09/10/18 05:37 09/10/18 05:37 Labs: Laboratory Results - last 24 hr 09/10/18 09/10/18 05:37 05:37 WBC 8.0 RBC 2.85 L Hgb 9.5 L Hct 29.3 L MCV 102.9 H MCH 33.3 H MCHC 32.4 L RDW 17.2 H Plt Count 128 L MPV 9.3 Neut % (Auto) 80.8 H Lymph % (Auto) 6.6 L [place] % (Auto) 5.9 Eos % (Auto) 6.6 H Baso % (Auto) 0.1 Neut # (Auto) 6.4 Lymph # (Auto) 0.5 L [place] # (Auto) 0.5 Eos # (Auto) 0.5 Baso # (Auto) 0.0 Neutrophils % (Manual) 78 H Lymphocytes % (Manual) 10 L Monocytes % (Manual) 9 Eosinophils % (Manual) 3 Toxic Granulation Present Platelet Estimate Slightly decreased L Large Platelets Present Giant Platelets Present Basophilic Stippling Slight Anisocytosis (manual) Moderate Microcytosis (manual) Slight Macrocytosis (manual) Moderate Sodium 133 Potassium 3.6 Chloride 93 L Carbon Dioxide 26 Anion Gap 18 BUN 38 H Creatinine 4.1 H Est GFR ( Amer) 17 Est GFR (Non-Af Amer) 14 Random Glucose 27 L* Calcium 7.1 L Phosphorus 4.9 H Magnesium 2.2 Total Bilirubin 0.8 AST 39 ALT 15 L D Alkaline Phosphatase 94 Total Protein 7.4 Albumin 2.9 L Globulin 4.5 H Albumin/Globulin Ratio 0.6 L
[2018-09-10 15:00] LABS: BODY FLUID TYPE PERITONEAL
[2018-09-10 16:07] LABS: BF GROSS APPEARANCE SL CLOUDY (CLEAR)
[2018-09-10 16:09] LABS: BODY FLUID MONO/MACROPHAGE 19 % (0-0); BODY FLUID TOTAL COUNT 100 (0-0)
--- NOTE | 2018-09-10 18:54 | HP ---
HISTORY OF PRESENT ILLNESS: The patient was admitted to the hospital with the chief complaints of abdominal distention, weakness, fall, . The patient came to the ER, advised admission. The patient is with liver disease. PHYSICAL EXAMINATION: GENERAL: The patient is awake, oriented to time and place. VITAL SIGNS: Temperature 98, pulse 92, blood pressure 115/70. HEENT: With ecchymosis over both orbits. NECK: Supple. CHEST: Symmetrical. HEART: Regular. ABDOMEN: Distended. EXTREMITIES: No Edema ASSESSMENT AND PLAN: Patient suffers from ____ Hypoglycemia. Patient getting bed rest, supportive care, IV fluid. Mia Carpenter MD
--- NOTE | 2018-09-10 19:40 | CP.PCM.CON ---
History of Present Illness - History of Present Illness History of Present Illness: 73-year-old Indonesian male with a past medical history of PAD, CHF (BiV CHF, LVEF 50% with decreased RV systolic function and pulmonary hypertension), ESRD on HD, Atrial fibrillation (on Apixaban), hyperlipidemia, diabetes (c/b foot ulcers), mild dementia, who was admitted on 09/06/18 after a fall in his correction. He was found to have low blood pressure and anasarca. Therefore, he was admitted for further evaluation and treated for possible sepsis Patient is in rehabilitation and has had the pressure ulcers for a long time. He was last hospitalized for infected ulcers with MRSA in July and he Has hx of severe MRSA infection in past ID requested for antibiotic management - Medical History PMH: Arthritis, Cardia Arrhythmia (A FIB/FLUTTER), CHF, Diabetes, HTN, Hypercholesterolemia, Chronic Kidney Disease Denies: CVA Other Surgeries: Cataract bilat, AV fistula, Skin graft leg - [facility] Procedures (05/03/18) EXCISION OF LEFT FOOT SKIN, EXTERNAL APPROACH (08/22/17) EXCISION OF LEFT METATARSAL, OPEN APPROACH, DIAGNOSTIC (08/22/17) FLUOROSCOPY OF AORTA, BI LE ART USING L OSM CONTRAST (05/03/18) REPLACE L FOOT SKIN W AUTOL SUB, FULL THICK, 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) Family History: States: Unknown Family Hx Review of Systems - Review of Systems All systems: reviewed and no additional remarkable complaints except - Constitutional Constitutional: As Per HPI - EENT Eyes: absent: As Per HPI, Blind Spots, Blurred Vision, Change in Vision, Decreased Night Vision, Diplopia, Discharge, Dry Eye, Exophthalmos, Floaters, Irritation, Itchy Eyes, Loss of Peripheral Vision, Pain, Photophobia, Requires Corrective Lenses, Sees Flashes, Spots in Vision, Tunnel Vision, Other Visual Disturbances, Loss of Vision, Other Ears: absent: As Per HPI, Decreased Hearing, Ear Discharge, Ear Pain, Tinnitus, Abnormal Hearing, Disequilibrium, Dizziness, Other Nose/Mouth/Throat: absent: As Per HPI, Epistaxis, Nasal Congestion, Nasal Discharge, Nasal Obstruction, Nasal Trauma, Nose Pain, Post Nasal Drip, Sinus Pain, Sinus Pressure, Bleeding Gums, Change in Voice, Dental Pain, Dry Mouth, Dysphagia, Halitosis, Hoarsness, Lip Swelling, Mouth Lesions, Mouth Pain, Odynophagia, Sore Throat, Throat Swelling, Tongue Swelling, Facial Pain, Neck Pain, Neck Mass, Other - Cardiovascular Cardiovascular: absent: As Per HPI, Acrocyanosis, Chest Pain, Chest Pain at Rest, Chest Pain with Activity, Claudication, Diaphoresis, Dyspnea, Dyspnea on Exertion, Edema, Irregular Heart Rhythm, Pain Radiating to Arm/Neck/Jaw, Leg Edema, Leg Ulcers, Lightheadedness, Orthopnea, Palpitations, Paroxysmal Noc turnal Dyspnea, Pedal Edema, Radiating Pain, Rapid Heart Rate, Slow Heart Rate, Syncope, Other - Respiratory Respiratory: absent: As Per HPI, Cough, Dyspnea, Hemoptysis, Dyspnea on Exertion, Wheezing, Snoring, Stridor, Pain on Inspiration, Chest Congestion, Exc essive Mucous Production, Change in Mucous Color, Pain with Coughing, Other - Gastrointestinal Gastrointestinal: absent: As Per HPI, Abdominal Pain, Belching, Bloating, Change in Bowel Habits, Change in Stool Character, Coffee Ground Emesis, Constipation, Cramping, Diarrhea, Dyspepsia, Dysphagia, Early Satiety, Excessive Flatus, Fecal Incontinence, Heartburn, Hematemesis, Hematochezia, Loose Stools, Melena, Nausea, Odynophagia, Temesmus, Vomiting, Other - Genitourinary Genitourinary: absent: As Per HPI, Change in Urinary Stream, Difficulty Urinating, Dysuria, Flank Pain, Hematuria, Pyuria, Nocturia, Urinary Inconti nence, Urinary Frequency, Urinary Hesitance, Urinary Urgency, Voiding Freq/Small Amts, Freq UTI, Hx Renal/Bladder Calculi, Hx /Renal Surgery, Bladder Distension, Other - Musculoskeletal Musculoskeletal: As Per HPI, Abnormal Gait - Integumentary Integumentary: Skin Pain, Wounds - Neurological Neurological: As Per HPI - Psychiatric Psychiatric: absent: As Per HPI, Abnormal Sleep Pattern, Anhedonia, Anxiety, Auditory Hallucinations, Behavioral Changes, Change in Appetite, Change in Libido, Confusion, Depression, Difficulty Concentrating, Hallucinations, Homicidal Ideation, Hopelessness, Irritability, Memory Loss, Mood Swings, Panic Attacks, Paranoia, Suicidal Ideation, Visual Hallucinations, Tactile Hallucinations, Other - Endocrine Endocrine: absent: As Per HPI, Change in Body Appearance, Change in Libido, Cold Intolorance, Deepening of Voice, Excessive Sweating, Fatigue, Flushing, Heat Intolorance, Increase in Ring/Shoe/Hat Size, Palpitations, Polydipsia, Polyphagia, Polyuria, Other - Hematologic/Lymphatic Hematologic: As Per HPI Past Patient History - Infectious Disease Hx of Infectious Diseases: None - Tetanus Immunizations Tetanus Immunization: Unknown - Past Medical History & Family History Past Medical History?: Yes Past Family History: Reviewed and not pertinent - Past Social History Smoking Status: Never Smoked Alcohol: None Drugs: Denies - CARDIAC Hx Cardia Arrhythmia: Yes (A FIB/FLUTTER) Hx Congestive Heart Failure: Yes Hx Hypercholesterolemia: Yes Hx Hypertension: Yes - PULMONARY Hx Respiratory Disorders: No - NEUROLOGICAL Hx Neurological Disorder: No - HEENT Hx HEENT Problems: Yes Hx Cataracts: Yes (BILAT.) - RENAL Hx Chronic Kidney Disease: Yes - ENDOCRINE/METABOLIC Hx Diabetes Mellitus Type 1: Yes - HEMATOLOGICAL/ONCOLOGICAL Hx Blood Disorders: Yes Hx Blood Transfusions: Yes - INTEGUMENTARY Hx Dermatological Problems: No - MUSCULOSKELETAL/RHEUMATOLOGICAL Hx Arthritis: Yes - GASTROINTESTINAL Hx Gastrointestinal Disorders: Yes Other/Comment: BLOOD IN STOOL - GENITOURINARY/GYNECOLOGICAL Hx Genitourinary Disorders: Yes Hx Hematuria: Yes Hx Prostate Problems: Yes Hx Urinary Tract Infection: Yes - PSYCHIATRIC Hx Substance Use: No - SURGICAL HISTORY Hx Surgeries: Yes Hx Arteriovenous Shunt: Yes (AV FISTULA RIGHT ARM) Hx Cataract Extraction: Yes (BILAT.) Hx Eye Surgery: Yes (LEFT EYE) Other/Comment: SKIN GRAFT LEFT FOOT - ANESTHESIA Hx Anesthesia: Yes Hx Anesthesia Reactions: No Hx Malignant Hyperthermia: No Meds Allergies/Adverse Reactions: Allergies Allergy/AdvReac Type Severity Reaction Status Date / Time No Known Allergies Allergy Verified 09/07/18 19:02 - Medications Medications: Current Medications Apixaban (Eliquis) 2.5 mg PO BID [facility] Last Admin: 09/10/18 17:16 Dose: 2.5 mg Collagenase (Santyl) 1 gm TOP DAILY [facility] Last Admin: 09/10/18 10:30 Dose: 1 applic Dicyclomine HCl (Bentyl) 10 mg PO QID [facility] Last Admin: 09/10/18 17:16 Dose: 10 mg Vancomycin/Sodium Chloride (Vancomycin 1 Gm/Ns 200 Ml) 1 gm in 200 mls @ 133 [facility]ls[facility] Protocol Stop: 09/16/18 09:01 Lactulose (Enulose) 15 gm PO BID [facility] Last Admin: 09/10/18 17:15 Dose: 15 gm Methylprednisolone (Solu-Medrol) 20 mg IVP Q12 [facility] Last Admin: 09/10/18 09:04 Dose: 20 mg Rosuvastatin Calcium (Crestor) 5 mg PO HS [facility] Last Admin: 09/09/18 21:06 Dose: 5 mg Sevelamer Carbonate (Renvela) 800 mg PO TID [facility] Last Admin: 09/10/18 17:16 Dose: 800 mg Tamsulosin HCl (Flomax) 0.4 mg PO DAILY [facility] Last Admin: 09/10/18 09:05 Dose: 0.4 mg Vitamin B Complex/Vit C/Folic Acid (Nephro-Amita) 1 tab PO DAILY [facility] Last Admin: 09/10/18 09:05 Dose: 1 tab Physical Exam - Constitutional Appears: Non-toxic, No Acute Distress, Cachectic, Chronically Ill - Head Exam Head Exam: absent: ATRAUMATIC, NORMAL INSPECTION, NORMOCEPHALIC Additional comments: bruises on face and sround eyes - Eye Exam Eye Exam: EOMI, Periorbital swelling, PERRL. absent: Normal appearance Pupil Exam: NORMAL ACCOMODATION, PERRL - ENT Exam ENT Exam: Mucous Membranes Moist, Normal Exam - Neck Exam Neck exam: Positive for: Normal Inspection - Respiratory Exam Respiratory Exam: Decreased Breath Sounds, Clear to Auscultation Bilateral, Prolonged Expiratory Phase - Cardiovascular Exam Cardiovascular Exam: Irregular Rhythm, REGULAR RHYTHM, +S1, +S2 - GI/Abdominal Exam GI & Abdominal Exam: Normal Bowel Sounds, Soft. absent: Tenderness - Rectal Exam Rectal Exam: Deferred - Exam Exam: NORMAL INSPECTION - Extremities Exam Extremities exam: Positive for: joint swelling. Negative for: normal inspection, pedal pulses present Additional comments: B/L Lower extremity exam: VASC: DP/PT pulses are non-palpable at this time. Temperature gradient warm to warm b/l. Cap refill slightly delayed > 3 sec to all digits on the left and approximately 3 sec to the right. NEURO: Protective sensation slightly diminished. DERM: RLE: An ulcer noted on the medial aspect of the 1st MPJ covered with black eschar 2 cm in diameter with hyperkeratotic edge, Base is mixed fibronecrotic, No drainage, No malodor, No probe to bone, No undermining. Another non stageable ulcer noted on the heel measuring 5 cm X 4 cm covered with black eschar, No drainage, No malodor, No probe to bone, No undermining. LLE: An ulcer noted on the medial aspect of the 1st MPJ covered with black eschar 2 cm X 1 cm, Base is necrotic, No drainage, No malodor, No probe to bone, No undermining. A smaller ulcer noted on the medial side of the hallux 0.5 cm in diameter covered with black eschar, Base is necrotic, No drainage, No malodor, No probe to bone, No undermining. 2 ulcerations noted on the plantar aspect of the 4th and 5th MPJ measuring 2 cm x 1 cm and 1.5 cm X 0.8 cm concequently covered with black eschar, Base is necrotic, No drainage, No malodor, No probe to bone, No undermining. Another non stageable ulcer noted on the heel measuring 5.5 cm X 4.2 cm covered with black eschar, No drainage, No malodor, No probe to bone, No undermining. MSK: No tenderness to palpation of B/L lower extremity ulcerations. MMT 3/5 b/l to all groups - Back Exam Back exam: absent: CVA tenderness (L), CVA tenderness (R) - Neurological Exam Neurological exam: Alert, CN II-XII Intact, Normal Gait, Oriented x3, Reflexes Normal - Psychiatric Exam Psychiatric exam: Depressed - Skin Skin Exam: Dry, Intact, Warm - Additional Findings Additional findings: B/L foot x-rays: No evidence of acute displaced fracture nor dislocation. No definitive evidence of cortical destructive changes seen. Questionable surface ulceration medial aspect 1st digit with surrounding soft tissue swelling; rule out cellulitis. B/L venous duplex: no evidence of DVT Abdominal angio (08/24): No abdominal aortic aneurysm. Scattered atherosclerotic plaque throughout the abdominal aorta and its main branches. 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 Diminutive caliber of the right renal artery. Right lower extremity: Scattered calcific and noncalcific plaque in the common femoral and superficial femoral arteries with area of focal severe stenosis due in the distal 1/3 segment of the superficial femoral artery. Patent popliteal artery and below-knee arteries. Left lower extremity: Scattered calcific and noncalcific plaque in the common femoral and superficial femoral arteries with short segment area of severe stenosis in the distal 1/3 segment. Patent popliteal artery. Moderate segment stenosis of the proximal posterior tibial artery, stable with distal reconstitution to the level of the ankle. Patent peroneal and anterior tibial arteries with scattered calcific plaque. 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 Results - Vital Signs Recent Vital Signs: Last Vital Signs Temp 97.3 F L 09/10/18 16:00 Pulse 88 09/10/18 18:00 Resp 15 09/10/18 18:00 BP 118/62 09/10/18 17:59 Pulse Ox 98 09/10/18 17:59 - Labs Result Diagrams: 09/10/18 05:37 09/10/18 05:37 Labs: Laboratory Results - last 24 hr 09/10/18 09/10/18 09/10/18 05:37 05:37 14:59 WBC 8.0 RBC 2.85 L Hgb 9.5 L Hct 29.3 L MCV 102.9 H MCH 33.3 H MCHC 32.4 L RDW 17.2 H Plt Count 128 L MPV 9.3 Neut % (Auto) 80.8 H Lymph % (Auto) 6.6 L Norton % (Auto) 5.9 Eos % (Auto) 6.6 H Baso % (Auto) 0.1 Neut # (Auto) 6.4 Lymph # (Auto) 0.5 L Norton # (Auto) 0.5 Eos # (Auto) 0.5 Baso # (Auto) 0.0 Neutrophils % (Manual) 78 H Lymphocytes % (Manual) 10 L Monocytes % (Manual) 9 Eosinophils % (Manual) 3 Toxic Granulation Present Platelet Estimate Slightly decreased L Large Platelets Present Giant Platelets Present Basophilic Stippling Slight Anisocytosis (manual) Moderate Microcytosis (manual) Slight Macrocytosis (manual) Moderate Sodium 133 Potassium 3.6 Chloride 93 L Carbon Dioxide 26 Anion Gap 18 BUN 38 H Creatinine 4.1 H Est GFR ( Amer) 17 Est GFR (Non-Af Amer) 14 Random Glucose 27 L* Calcium 7.1 L Phosphorus 4.9 H Magnesium 2.2 Total Bilirubin 0.8 AST 39 ALT 15 L D Alkaline Phosphatase 94 Total Protein 7.4 Albumin 2.9 L Globulin 4.5 H Albumin/Globulin Ratio 0.6 L Fluid Source Peritoneal Fluid Appearance Sl cloudy Fluid WBC 133.0 Fluid RBC 2140.0 H Fluid Tot Cell Count 100 H Fluid Neutrophils 18.0 H Fluid Lymphocytes 63.0 H Fld Monocyte/Macrophag 19 H Fluid Comment Assessment & Plan (1) Anemia Status: Acute (2) Atrial fibrillation Status: Acute (3) Bilateral lower leg cellulitis Status: Acute (4) CHF (congestive heart failure) Status: Acute (5) Cardiomyopathy Status: Acute (6) Cellulitis and abscess of left leg Status: Acute - Assessment and Plan (Free Text) Assessment: 73-year-old Indonesian male with a past medical history of PAD, CHF (BiV CHF, LVEF 50% with decreased RV systolic function and pulmonary hypertension), ESRD on HD, Atrial fibrillation (on Apixaban), hyperlipidemia, diabetes (c/b foot ulcers), mild dementia, who was admitted on 09/06/18 after a fall in his correction. He was found to have low blood pressure and anasarca. Therefore, he was admitted for further evaluation and treated for possible sepsis Patient is in rehabilitation and has had the pressure ulcers for a long time. He was last hospitalized for infected ulcers with MRSA in July and he Has hx of severe MRSA infection in past cont local wound care and IV antibiotics as ordered follow up Vasculkar and podiatry eval
[2018-09-11 05:47] LABS: BASO % 0.2 % (0.0-2.0); EOS # 0.1 K/uL (0.0-0.7); EOS % 1.2 % (0.0-4.0); HEMOGLOBIN 9.3 g/dL (12.0-18.0); LYMPH # 0.3 K/uL (1.0-4.3); LYMPH % 4.9 % (20.0-40.0); MEAN CELL VOLUME 103.6 fL (80.0-94.0); MEAN CORPUSCULAR HEMOGLOBIN 33.3 pg (27.0-31.0); MEAN CORPUSCULAR HGB CONC 32.1 g/dL (33.0-37.0); MEAN PLATELET VOLUME 9.3 fL (7.2-11.7); MONO # 0.4 K/uL (0.0-0.8); NEUT # 5.3 K/uL (1.8-7.0); NEUT % 86.7 % (50.0-75.0); NRBC % 0.1 % (0.0-2.0); PLATELET COUNT 123 K/uL (130-400); RBC 2.79 Mil/uL (4.40-5.90); RED CELL DISTRIBUTION WIDTH 17.6 % (11.5-14.5); WHITE BLOOD COUNT 6.2 K/uL (4.8-10.8)
[2018-09-11 06:01] LABS: ALB/GLOB RATIO 0.6 (1.0-2.1); CALCIUM 7.6 mg/dl (8.6-10.4)
--- NOTE | 2018-09-11 07:41 | CP.PCM.PN ---
<Genesis Hogue - Last Filed: 09/11/18 10:18> Subjective - Date & Time of Evaluation Date of Evaluation: 09/11/18 Time of Evaluation: 07:15 - Subjective Subjective: GI Fellow PGY5 Progress Note Pt seen and evaluated at bedside, pt reports abdominal distention over the past 7 days, no prior issues with ascites or paracentesis, reports difficulty eating due to abdominal distention. ROS: A 12pt ROS was negative except as above. Objective - Vital Signs/Intake and Output Vital Signs (last 24 hours): Temp Pulse Resp BP Pulse Ox 97.8 F 74 11 L 92/47 L 98 09/11/18 04:00 09/11/18 06:00 09/11/18 06:00 09/11/18 05:57 09/11/18 06:00 Intake and Output: 09/11/18 09/11/18 06:59 18:59 Intake Total 50 Balance 50 - Medications Medications: Current Medications Apixaban (Eliquis) 2.5 mg PO BID [facility] Last Admin: 09/10/18 17:16 Dose: 2.5 mg Collagenase (Santyl) 1 gm TOP DAILY [facility] Last Admin: 09/10/18 10:30 Dose: 1 applic Dicyclomine HCl (Bentyl) 10 mg PO QID [facility] Last Admin: 09/10/18 21:06 Dose: 10 mg Vancomycin/Sodium Chloride (Vancomycin 1 Gm/Ns 200 Ml) 1 gm in 200 mls @ 133 mls/hr IVPB MWF [facility]; Protocol Stop: 09/16/18 09:01 Lactulose (Enulose) 15 gm PO BID [facility] Last Admin: 09/10/18 17:15 Dose: 15 gm Methylprednisolone (Solu-Medrol) 20 mg IVP Q12 [facility] Last Admin: 09/10/18 21:06 Dose: 20 mg Rosuvastatin Calcium (Crestor) 5 mg PO HS [facility] Last Admin: 09/10/18 21:05 Dose: 5 mg Sevelamer Carbonate (Renvela) 800 mg PO TID [facility] Last Admin: 09/10/18 17:16 Dose: 800 mg Tamsulosin HCl (Flomax) 0.4 mg PO DAILY [facility] Last Admin: 09/10/18 09:05 Dose: 0.4 mg Vitamin B Complex/Vit C/Folic Acid (Nephro-Amita) 1 tab PO DAILY [facility] Last Admin: 09/10/18 09:05 Dose: 1 tab - Labs Labs: 09/11/18 05:36 09/11/18 05:36 PT 14.7 SECONDS (9.7-12.2) H 09/08/18 10:47 INR 1.3 09/08/18 10:47 APTT 52.5 SECONDS (21-34) H D 09/08/18 10:47 - Constitutional Appears: Non-toxic, No Acute Distress, Cachectic, Chronically Ill - Head Exam Head Exam: ATRAUMATIC, NORMAL INSPECTION, NORMOCEPHALIC - Eye Exam Eye Exam: EOMI, Normal appearance, PERRL - ENT Exam ENT Exam: Mucous Membranes Dry, Mucous Membranes Moist - Respiratory Exam Respiratory Exam: Clear to Ausculation Bilateral, NORMAL BREATHING PATTERN - Cardiovascular Exam Cardiovascular Exam: Irregular Rhythm, +S1, +S2 - GI/Abdominal Exam GI & Abdominal Exam: Distended, Firm, Hypoactive Bowel Sounds. absent: Guarding, Soft, Tenderness - Rectal Exam Rectal Exam: Deferred - Neurological Exam Neurological Exam: Alert, Awake, Oriented x3 - Psychiatric Exam Psychiatric exam: Normal Affect, Normal Mood - Skin Skin Exam: Abrasion, Dry, Intact, Warm Assessment and Plan - Assessment and Plan (Free Text) Assessment: 73-year-old Malagasy male with a past medical history of PAD, CHF (BiV CHF, LVEF 50% with decreased RV systolic function and pulmonary hypertension), ESRD on HD, Atrial fibrillation (on Apixaban), hyperlipidemia, diabetes (c/b foot ulcers), mild dementia, who was admitted on 09/06/18 after a fall in his group home. He was found to have low blood pressure and anasarca. Therefore, he was admitted for further evaluation and treated for possible sepsis related to questionable as SBP. G.I. consulted for further evaluation. 1. Ascites 2. ESRd on HD 3. CHF 4. Afib Plan: Liver is fatty on US with cirrhosis on CT, no splenomegaly - Diagnostic para yesterday was negative for SBP Will order therapeutic paracentesis with IR today and give albumin - Given right sided heart failure with severe pulmonary hypertension, favor cardiac induced - Recommend Cardiology consult - Checked BNP elevated at 34,900 - Low Na diet - Will continue to follow pt closely <Carissa Anderson - Last Filed: 09/11/18 10:41> Objective - Vital Signs/Intake and Output Vital Signs (last 24 hours): Temp Pulse Resp BP Pulse Ox 97.6 F 81 20 124/63 97 09/11/18 08:00 09/11/18 10:00 09/11/18 10:00 09/11/18 10:00 09/11/18 10:00 Intake and Output: 09/11/18 09/11/18 06:59 18:59 Intake Total 50 320 Balance 50 320 - Medications Medications: Current Medications Albumin Human (Albumin Human 25% (12.5 Gm/50 Ml)) 50 gm IV ONCE ONE Stop: 09/11/18 11:01 Apixaban (Eliquis) 2.5 mg PO BID [facility] Last Admin: 09/10/18 17:16 Dose: 2.5 mg Collagenase (Santyl) 1 gm TOP DAILY [facility] Last Admin: 09/11/18 09:25 Dose: Not Given Dicyclomine HCl (Bentyl) 10 mg PO QID [facility] Last Admin: 09/11/18 09:30 Dose: 10 mg Vancomycin/Sodium Chloride (Vancomycin 1 Gm/Ns 200 Ml) 1 gm in 200 mls @ 133 mls/hr IVPB MWF [facility]; Protocol Stop: 09/16/18 09:01 Last Admin: 09/11/18 09:29 Dose: 133 mls/hr Lactulose (Enulose) 15 gm PO BID [facility] Last Admin: 09/11/18 09:30 Dose: 15 gm Methylprednisolone (Solu-Medrol) 20 mg IVP Q12 [facility] Last Admin: 09/11/18 09:29 Dose: 20 mg Rosuvastatin Calcium (Crestor) 5 mg PO HS [facility] Last Admin: 09/10/18 21:05 Dose: 5 mg Sevelamer Carbonate (Renvela) 800 mg PO TID [facility] Last Admin: 09/11/18 09:30 Dose: 800 mg Tamsulosin HCl (Flomax) 0.4 mg PO DAILY [facility] Last Admin: 09/11/18 09:30 Dose: 0.4 mg Vitamin B Complex/Vit C/Folic Acid (Nephro-Amita) 1 tab PO DAILY [facility] Last Admin: 09/11/18 09:30 Dose: 1 tab - Labs Labs: 09/11/18 05:36 09/11/18 05:36 PT 14.7 SECONDS (9.7-12.2) H 09/08/18 10:47 INR 1.3 09/08/18 10:47 APTT 52.5 SECONDS (21-34) H D 09/08/18 10:47 Attending/Attestation - Attestation I have personally seen and examined this patient.: Yes I have fully participated in the care of the patient.: Yes I have reviewed all pertinent clinical information, including history, physical exam and plan: Yes Notes (Text): 09/11/18 10:40 I have seen and examined the pt with the GI fellow. Undergoing therapeutic paracentesis currently. Denies any abdominal pain. Negative for SBP on initial studies yesterday. Albumin and Tprotein still pending, but favor cardiac etiology. Recommend cardiology consult and consider repeat ECHO.
[2018-09-11 08:16] LABS: ANISOCYTOSIS SLIGHT; BANDS 2 % (0-2); EOSINOPHIL 1 % (0-4); LYMPHOCYTE 3 % (20-40); MONOCYTE 3 % (0-10); NEUTROPHIL 91 % (50-75); PLATELET ESTIMATE SLIGHTLY DECREASED (NORMAL); TOTAL CELLS COUNTED 100
[2018-09-11 08:18] LABS: POIKILOCYTOSIS SLIGHT
--- NOTE | 2018-09-11 08:32 | CP.PCM.PN ---
Subjective - Date & Time of Evaluation Date of Evaluation: 09/11/18 Time of Evaluation: 08:29 - Subjective Subjective: Podiatry Progress Note: Dr. Alfredo Cavanaugh 73 y/o male seen and evaluated at bedside this morning in the ICU for worsening bilateral LE ulcerations (L>R). Patient denies any pain to the lower extremities at the ulceration sites. He says he has been wearing his offloading boots at all times in bed. Has no other complaints at this time, stating he is just hungry. Denies of having any overnight F/N/V/C/SOB. Objective - Vital Signs/Intake and Output Vital Signs (last 24 hours): Temp Pulse Resp BP Pulse Ox 97.6 F 73 14 115/63 96 09/11/18 08:00 09/11/18 08:00 09/11/18 08:00 09/11/18 08:00 09/11/18 08:00 Intake and Output: 09/11/18 09/11/18 06:59 18:59 Intake Total 50 0 Balance 50 0 - Medications Medications: Current Medications Apixaban (Eliquis) 2.5 mg PO BID [facility] Last Admin: 09/10/18 17:16 Dose: 2.5 mg Collagenase (Santyl) 1 gm TOP DAILY [facility] Last Admin: 09/10/18 10:30 Dose: 1 applic Dicyclomine HCl (Bentyl) 10 mg PO QID [facility] Last Admin: 09/10/18 21:06 Dose: 10 mg Vancomycin/Sodium Chloride (Vancomycin 1 Gm/Ns 200 Ml) 1 gm in 200 mls @ 133 mls/hr IVPB MWF [facility]; Protocol Stop: 09/16/18 09:01 Lactulose (Enulose) 15 gm PO BID [facility] Last Admin: 09/10/18 17:15 Dose: 15 gm Methylprednisolone (Solu-Medrol) 20 mg IVP Q12 [facility] Last Admin: 09/10/18 21:06 Dose: 20 mg Rosuvastatin Calcium (Crestor) 5 mg PO HS [facility] Last Admin: 09/10/18 21:05 Dose: 5 mg Sevelamer Carbonate (Renvela) 800 mg PO TID [facility] Last Admin: 09/10/18 17:16 Dose: 800 mg Tamsulosin HCl (Flomax) 0.4 mg PO DAILY [facility] Last Admin: 09/10/18 09:05 Dose: 0.4 mg Vitamin B Complex/Vit C/Folic Acid (Nephro-Amita) 1 tab PO DAILY [facility] Last Admin: 09/10/18 09:05 Dose: 1 tab - Labs Labs: 09/11/18 05:36 09/11/18 05:36 PT 14.7 SECONDS (9.7-12.2) H 09/08/18 10:47 INR 1.3 09/08/18 10:47 APTT 52.5 SECONDS (21-34) H D 09/08/18 10:47 - Constitutional Appears: Well, No Acute Distress - Head Exam Additional comments: ecchymosis noted to forehead and periorbital region - Extremities Exam Additional comments: B/L Lower extremity focused exam: VASC: DP/PT pulses are non-palpable at this time B/L. Temperature gradient warm to warm B/L. CFT delayed > 3 sec to all digits on the left and approximately 3 sec to the right. NEURO: Protective sensation slightly diminished. DERM: RLE: An ulcer noted on the medial aspect of the 1st MPJ covered with black eschar 2 cm in diameter with hyperkeratotic edge. Base is mixed fibronecrotic. No drainage, no malodor, no probe to bone, no undermining. Another nonstageable ulcer noted on the plantar heel measuring 5 cm X 4 cm covered with black eschar. No drainage, no malodor, no probe to bone, no undermining. LLE: An ulcer noted on the medial aspect of the 1st MPJ covered with black eschar measuring approximately 2 cm X 1 cm. Base is necrotic, with no drainage, no malodor, no probe to bone, no undermining or tunneling. Additional circular ulceration noted on the medial side of the hallux approximately 0.5 cm in diameter covered with black eschar. Base is necrotic, with no drainage, no malodor, no probe to bone, no undermining or tunneling. 2 ulcerations noted on the plantar aspect of the 4th and 5th MPJ measuring 2 cm x 1 cm x 0.1cm and 1.5 cm X 0.8 cm x 0.1cm covered with black eschar. Wound bases are necrotic, with no drainage, no malodor, no probe to bone, no undermining. Another non stageable ulcer noted on the plantar heel measuring 5.5 cm X 4.2 cm covered with black eschar. No drainage, Nno malodor, no probe to bone, no undermining. MSK: No tenderness to palpation of B/L lower extremity ulcerations. MMT 3/5 B/L to all groups - Neurological Exam Neurological Exam: Alert, Awake, Oriented x3 - Psychiatric Exam Psychiatric exam: Normal Affect, Normal Mood Assessment and Plan - Assessment and Plan (Free Text) Assessment: 73 year old male patient seen and evaluated at bedside in the ICU for worsening bilateral LE ulcerations (L>R). Plan: Patient seen and evaluated in ICU this morning Discussed plan with Dr. Cavanaugh Charts, labs and vitals reviewed; Afebrile, No leukocytosis B/L foot x-rays: No evidence of acute displaced fracture nor dislocation. No definitive evidence of cortical destructive changes seen. Questionable surface ulceration medial aspect 1st digit with surrounding soft tissue swelling; rule out cellulitis. Consider follow-up MRI for further evaluation Wound sites flushed with saline and dressings to bilateral LE applied using Santyl, ABD, DSD Wound culture prelim: gram + cocci in clusters ID on board, IV abx as per ID recommendations Vascular consult, Dr. Macias B/L venous duplex: no evidence of DVT Abdominal angiogram (08/24): No abdominal aortic aneurysm. Scattered atherosclerotic plaque throughout the abdominal aorta and its main branches. 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 Diminutive caliber of the right renal artery. Right lower extremity: Scattered calcific and noncalcific plaque in the common femoral and superficial femoral arteries with area of focal severe stenosis due in the distal 1/3 segment of the superficial femoral artery. Patent popliteal artery and below-knee arteries. Left lower extremity: Scattered calcific and noncalcific plaque in the common femoral and superficial femoral arteries with short segment area of severe stenosis in the distal 1/3 segment. Patent popliteal artery. Moderate segment stenosis of the proximal posterior tibial artery, stable with distal reconstitution to the level of the ankle. Patent peroneal and anterior tibial arteries with scattered calcific plaque. 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 No plans for surgical intervention from podiatry standpoint at this time Will continue with local wound care Podiatry will continue to follow up the patient while in-house
[2018-09-11] MEDS: Collagenase 250 Units/gm Ointment(30 gm) TOP SCH (09:25)
[2018-09-11] MEDS: Vancomycin 1 gm/NS 200 ml 1 GM/200 ML BAG IVPB SCH (09:29)
[2018-09-11] MEDS: MethylPREDNISolone 40 mg Vial IVP SCH ×2 (09:29→21:33)
[2018-09-11] MEDS: Multivitamin Vitamin B Complex (Nephro-Vite) Tab PO SCH (09:30)
[2018-09-11] MEDS ORDERED: Lidocaine 2% MPF (5 ml) Inj ONE (09:56)
--- NOTE | 2018-09-11 10:33 | PCM.SURG1 ---
Surgeon's Initial Post Op Note - Surgeon's Notes Surgeon: Tae Rivas MD Instructor Substitute Cosmetology: NONE Type of Anesthesia: Local Pre-Operative Diagnosis: Ascites Operative Findings: US showed a large amount of ascites Post-Operative Diagnosis: Ascites Operation Performed: US guided paracentesis Specimen/Specimens Removed: 3 liters of clear fluid Estimated Blood Loss: EBL {In ML}: 0 Blood Products Given: N/A Drains Used: No Drains Post-Op Condition: Fair Date of Surgery/Procedure: 09/11/18 Time of Surgery/Procedure: 10:18
--- NOTE | 2018-09-11 10:37 | CP.PCM.PN ---
Subjective - Date & Time of Evaluation Date of Evaluation: 09/11/18 Time of Evaluation: 09:00 - Subjective Subjective: awake alert less facial swelling no fever wounds on feet same cultures noted IV rx renewed Objective - Vital Signs/Intake and Output Vital Signs (last 24 hours): Temp Pulse Resp BP Pulse Ox 97.6 F 81 20 124/63 97 09/11/18 08:00 09/11/18 10:00 09/11/18 10:00 09/11/18 10:00 09/11/18 10:00 Intake and Output: 09/11/18 09/11/18 06:59 18:59 Intake Total 50 320 Balance 50 320 - Medications Medications: Current Medications Albumin Human (Albumin Human 25% (12.5 Gm/50 Ml)) 50 gm IV ONCE ONE Stop: 09/11/18 11:01 Apixaban (Eliquis) 2.5 mg PO BID [facility] Last Admin: 09/10/18 17:16 Dose: 2.5 mg Collagenase (Santyl) 1 gm TOP DAILY [facility] Last Admin: 09/11/18 09:25 Dose: Not Given Dicyclomine HCl (Bentyl) 10 mg PO QID [facility] Last Admin: 09/11/18 09:30 Dose: 10 mg Vancomycin/Sodium Chloride (Vancomycin 1 Gm/Ns 200 Ml) 1 gm in 200 mls @ 133 mls/hr IVPB MWF [facility]; Protocol Stop: 09/16/18 09:01 Last Admin: 09/11/18 09:29 Dose: 133 mls/hr Lactulose (Enulose) 15 gm PO BID [facility] Last Admin: 09/11/18 09:30 Dose: 15 gm Methylprednisolone (Solu-Medrol) 20 mg IVP Q12 [facility] Last Admin: 09/11/18 09:29 Dose: 20 mg Rosuvastatin Calcium (Crestor) 5 mg PO HS [facility] Last Admin: 09/10/18 21:05 Dose: 5 mg Sevelamer Carbonate (Renvela) 800 mg PO TID [facility] Last Admin: 09/11/18 09:30 Dose: 800 mg Tamsulosin HCl (Flomax) 0.4 mg PO DAILY [facility] Last Admin: 09/11/18 09:30 Dose: 0.4 mg Vitamin B Complex/Vit C/Folic Acid (Nephro-Amita) 1 tab PO DAILY [facility] Last Admin: 09/11/18 09:30 Dose: 1 tab - Labs Labs: 09/11/18 05:36 09/11/18 05:36 PT 14.7 SECONDS (9.7-12.2) H 09/08/18 10:47 INR 1.3 09/08/18 10:47 APTT 52.5 SECONDS (21-34) H D 09/08/18 10:47 - Constitutional Appears: Non-toxic, Chronically Ill - Head Exam Head Exam: NORMOCEPHALIC - Eye Exam Eye Exam: absent: Scleral icterus - ENT Exam ENT Exam: Mucous Membranes Dry - Neck Exam Neck Exam: absent: Lymphadenopathy - Respiratory Exam Respiratory Exam: Decreased Breath Sounds - Cardiovascular Exam Cardiovascular Exam: REGULAR RHYTHM - GI/Abdominal Exam GI & Abdominal Exam: Distended, Soft - Rectal Exam Rectal Exam: Deferred - Exam Exam: NORMAL INSPECTION - Extremities Exam Extremities Exam: absent: Pedal Edema - Back Exam Back Exam: absent: CVA tenderness (L), CVA tenderness (R) - Neurological Exam Neurological Exam: Alert, Awake, Oriented x3 - Psychiatric Exam Psychiatric exam: Depressed - Skin Skin Exam: Dry Additional comments: VASC: DP/PT pulses are non-palpable at this time B/L. Temperature gradient warm to warm B/L. CFT delayed > 3 sec to all digits on the left and approximately 3 sec to the right. NEURO: Protective sensation slightly diminished. DERM: RLE: An ulcer noted on the medial aspect of the 1st MPJ covered with black eschar 2 cm in diameter with hyperkeratotic edge. Base is mixed fibronecrotic. No drainage, no malodor, no probe to bone, no undermining. Another nonstageable ulcer noted on the plantar heel measuring 5 cm X 4 cm covered with black eschar. No drainage, no malodor, no probe to bone, no undermining. LLE: An ulcer noted on the medial aspect of the 1st MPJ covered with black eschar measuring approximately 2 cm X 1 cm. Base is necrotic, with no drainage, no malodor, no probe to bone, no undermining or tunneling. Additional circular ulceration noted on the medial side of the hallux approximately 0.5 cm in diameter covered with black eschar. Base is necrotic, with no drainage, no malodor, no probe to bone, no undermining or tunneling. 2 ulcerations noted on the plantar aspect of the 4th and 5th MPJ measuring 2 cm x 1 cm x 0.1cm and 1.5 cm X 0.8 cm x 0.1cm covered with black eschar. Wound bases are necrotic, with no drainage, no malodor, no probe to bone, no undermining. Another non stageable ulcer noted on the plantar heel measuring 5.5 cm X 4.2 cm covered with black eschar. No drainage, Nno malodor, no probe to bone, no undermining. MSK: No tenderness to palpation of B/L lower extremity ulcerations. MMT 3/5 B/L to all groups Assessment and Plan (1) Anemia Status: Acute (2) Atrial fibrillation Status: Acute (3) Bilateral lower leg cellulitis Status: Acute (4) CHF (congestive heart failure) Status: Acute (5) Cardiomyopathy Status: Acute (6) Cellulitis and abscess of left leg Status: Acute - Assessment and Plan (Free Text) Assessment: ischemic ulcers of lower extrem L>R / cellulitis / possible OM recurrent MRSA infections Plan: vascular and podiatry on board bone scan neg for OM last visit - consider MRI would advise [facility] IV antibiotics- Vanco with HD for 6-8 weeks
--- NOTE | 2018-09-11 10:55 | CP.CCUPN ---
CCU Subjective - Physician Review Subjective (Free Text): 09/11/18 10:51 PGY-1 Critical Care Progress Note for Dr. Nance Patient seen and examined at bedside this AM. 73 yo male with pmhx of ESRD on HD, HTN, Afib on home eliquis, CHF, DM presenting with AMS, hypotension. No HD done on day of admission d/t low BP. Distended abdomen, extensive ascites noted on CT A/P w/o contrast Moderate b/l pleural effusions with b/l lower lobe atelectasis Generalized anasarca Status post diagnostic paracentesis, negative for SBP Therapeutic Para with IR this AM Due for HD later today Ischemic ulcers of b/l LE L>R, recurrent MRSA infection ID recs appreciated, c/w IV vancomycin with HD x 6-8 weeks Continue to monitor CCU Objective - Vital Signs / Intake & Output Vital Signs (Last 4 hours): Vital Signs Temp Pulse Resp BP Pulse Ox 09/11/18 10:00 81 20 124/63 97 09/11/18 09:00 88 22 131/62 96 09/11/18 08:00 97.6 F 73 14 115/63 96 Intake and Output (Last 8hrs): Intake & Output 09/10/18 09/11/18 09/11/18 22:59 06:59 14:59 Intake Total 230 0 320 Output Total 0 Balance 230 0 320 Weight 57.153 kg Intake: Intake, IV Amount 200 Right Antecubital 200 Oral 230 0 120 Output: Stool 0 Other: # Bowel Movements 1 1 - Physical Exam Head: Positive for: Atraumatic, Normocephalic Pupils: Positive for: PERRL Extroacular Muscles: Positive for: EOMI Mouth: Positive for: Moist Mucous Membranes Respiratory/Chest: Positive for: Clear to Auscultation, Decreased Breath Sounds. Negative for: Respiratory Distress, Accessory Muscle Use, Rales, Rhonchi Cardiovascular: Positive for: Normal S1, S2 Abdomen: Positive for: Distention, Normal Bowel Sounds. Negative for: Tenderness, Rebound, Guarding Lower Extremity: Positive for: Tenderness Skin: Positive for: Other (multiple ulceratons at various stages of healing) Psychiatric: Positive for: Alert, Other (mildly confused, alert and oriented x 2) - Medications Active Medications: Active Medications Generic Name Dose Route Start Last Admin Trade Name Freq PRN Reason Stop Dose Admin Albumin Human 50 gm 09/11/18 11:00 Albumin Human 25% (12.5 Gm/50 Ml) IV 09/11/18 11:01 ONCE ONE Apixaban 2.5 mg 09/09/18 10:00 09/10/18 17:16 Eliquis PO 2.5 mg BID [facility] Administration Collagenase 1 gm 09/10/18 10:00 09/11/18 09:25 Santyl TOP Not Given DAILY [facility] Dicyclomine HCl 10 mg 09/09/18 14:00 09/11/18 09:30 Bentyl PO 10 mg QID [facility] Administration Vancomycin/Sodium Chloride 1 gm in 200 mls @ 133 mls/hr 09/11/18 09:00 09/11/18 09:29 Vancomycin 1 Gm/Ns 200 Ml IVPB 09/16/18 09:01 133 mls/hr MWF [facility] Administration Protocol Lactulose 15 gm 09/10/18 10:00 09/11/18 09:30 Enulose PO 15 gm BID [facility] Administration Methylprednisolone 20 mg 09/10/18 10:00 09/11/18 09:29 Solu-Medrol IVP 20 mg Q12 [facility] Administration Rosuvastatin Calcium 5 mg 09/09/18 22:00 09/10/18 21:05 Crestor PO 5 mg HS DON Administration Sevelamer Carbonate 800 mg 09/09/18 10:00 09/11/18 09:30 Renvela PO 800 mg TID [facility] Administration Tamsulosin HCl 0.4 mg 09/09/18 10:00 09/11/18 09:30 Flomax PO 0.4 mg DAILY [facility] Administration Vitamin B Complex/Vit C/Folic Acid 1 tab 09/09/18 10:00 09/11/18 09:30 Nephro-Amita PO 1 tab DAILY [facility] Administration - Patient Studies Lab Studies: Microbiology Studies 09/09/18 15:05 Gram Stain - Final Foot - Right Wound Culture - Final Methicillin Resistant S Aureus 09/07/18 19:00 Blood Culture - Preliminary Blood NO GROWTH AFTER 3 DAYS 09/07/18 19:15 Blood Culture - Preliminary Blood NO GROWTH AFTER 3 DAYS Lab Studies 09/11/18 09/11/18 09/11/18 Range/Units 10:41 05:36 05:36 WBC 6.2 (4.8-10.8) K/uL RBC 2.79 L (4.40-5.90) Mil/uL Hgb 9.3 L (12.0-18.0) g/dL Hct 28.9 L (35.0-51.0) % MCV 103.6 H (80.0-94.0) fL MCH 33.3 H (27.0-31.0) pg MCHC 32.1 L (33.0-37.0) g/dL RDW 17.6 H (11.5-14.5) % Plt Count 123 L (130-400) K/uL MPV 9.3 (7.2-11.7) fL Neut % (Auto) 86.7 H (50.0-75.0) % Lymph % (Auto) 4.9 L (20.0-40.0) % [place] % (Auto) 7.0 (0.0-10.0) % Eos % (Auto) 1.2 (0.0-4.0) % Baso % (Auto) 0.2 (0.0-2.0) % Neut # (Auto) 5.3 (1.8-7.0) K/uL Lymph # (Auto) 0.3 L (1.0-4.3) K/uL [place] # (Auto) 0.4 (0.0-0.8) K/uL Eos # (Auto) 0.1 (0.0-0.7) K/uL Baso # (Auto) 0.0 (0.0-0.2) K/uL Neutrophils % (Manual) 91 H (50-75) % Band Neutrophils % 2 (0-2) % Lymphocytes % (Manual) 3 L (20-40) % Monocytes % (Manual) 3 (0-10) % Eosinophils % (Manual) 1 (0-4) % Platelet Estimate Slightly decreased L (NORMAL) Poikilocytosis (manual Slight Basophilic Stippling Slight Anisocytosis (manual) Slight Macrocytosis (manual) Moderate Sodium 131 L (132-148) mmol/L Potassium 4.3 (3.6-5.2) mmol/L Chloride 92 L (98-107) mmol/L Carbon Dioxide 25 (22-30) mmol/L Anion Gap 18 (10-20) BUN 42 H (9-20) mg/dL Creatinine 5.2 H (0.8-1.5) mg/dL Est GFR ( Amer) 13 Est GFR (Non-Af Amer) 11 Random Glucose 248 H D (75-110) mg/dL Calcium 7.6 L (8.6-10.4) mg/dl Phosphorus 6.3 H (2.5-4.5) mg/dL Magnesium 2.4 H (1.6-2.3) mg/dL Total Bilirubin 0.9 (0.2-1.3) mg/dL AST 31 (17-59) U/L ALT 17 L (21-72) U/L Alkaline Phosphatase 100 (38-126) U/L NT-Pro-B Natriuret Pep 95539 H (0-900) pg/mL Total Protein 7.8 (6.3-8.3) g/dL Albumin 3.0 L (3.5-5.0) g/dL Globulin 4.8 H (2.2-3.9) gm/dL Albumin/Globulin Ratio 0.6 L (1.0-2.1) Fluid Source Cancelled Fluid Appearance Cancelled (CLEAR) Fluid WBC Cancelled (0.0-300.0) /mm3 Fluid RBC Cancelled (0.0-0.0) /mm3 Fluid Tot Cell Count Cancelled (0-0) Fluid Neutrophils Cancelled (0-0) % Fluid Lymphocytes Cancelled (0-0) % Fld Monocyte/Macrophag Cancelled (0-0) % Fluid Comment Cancelled 09/10/18 Range/Units 14:59 WBC (4.8-10.8) K/uL RBC (4.40-5.90) Mil/uL Hgb (12.0-18.0) g/dL Hct (35.0-51.0) % MCV (80.0-94.0) fL MCH (27.0-31.0) pg MCHC (33.0-37.0) g/dL RDW (11.5-14.5) % Plt Count (130-400) K/uL MPV (7.2-11.7) fL Neut % (Auto) (50.0-75.0) % Lymph % (Auto) (20.0-40.0) % [place] % (Auto) (0.0-10.0) % Eos % (Auto) (0.0-4.0) % Baso % (Auto) (0.0-2.0) % Neut # (Auto) (1.8-7.0) K/uL Lymph # (Auto) (1.0-4.3) K/uL [place] # (Auto) (0.0-0.8) K/uL Eos # (Auto) (0.0-0.7) K/uL Baso # (Auto) (0.0-0.2) K/uL Neutrophils % (Manual) (50-75) % Band Neutrophils % (0-2) % Lymphocytes % (Manual) (20-40) % Monocytes % (Manual) (0-10) % Eosinophils % (Manual) (0-4) % Platelet Estimate (NORMAL) Poikilocytosis (manual Basophilic Stippling Anisocytosis (manual) Macrocytosis (manual) Sodium (132-148) mmol/L Potassium (3.6-5.2) mmol/L Chloride (98-107) mmol/L Carbon Dioxide (22-30) mmol/L Anion Gap (10-20) BUN (9-20) mg/dL Creatinine (0.8-1.5) mg/dL Est GFR ( Amer) Est GFR (Non-Af Amer) Random Glucose (75-110) mg/dL Calcium (8.6-10.4) mg/dl Phosphorus (2.5-4.5) mg/dL Magnesium (1.6-2.3) mg/dL Total Bilirubin (0.2-1.3) mg/dL AST (17-59) U/L ALT (21-72) U/L Alkaline Phosphatase (38-126) U/L NT-Pro-B Natriuret Pep (0-900) pg/mL Total Protein (6.3-8.3) g/dL Albumin (3.5-5.0) g/dL Globulin (2.2-3.9) gm/dL Albumin/Globulin Ratio (1.0-2.1) Fluid Source Peritoneal Fluid Appearance Sl cloudy (CLEAR) Fluid WBC 133.0 (0.0-300.0) /mm3 Fluid RBC 2140.0 H (0.0-0.0) /mm3 Fluid Tot Cell Count 100 H (0-0) Fluid Neutrophils 18.0 H (0-0) % Fluid Lymphocytes 63.0 H (0-0) % Fld Monocyte/Macrophag 19 H (0-0) % Fluid Comment Laboratory Results - last 24 hr 09/10/18 09/11/18 09/11/18 14:59 05:36 05:36 WBC 6.2 RBC 2.79 L Hgb 9.3 L Hct 28.9 L MCV 103.6 H MCH 33.3 H MCHC 32.1 L RDW 17.6 H Plt Count 123 L MPV 9.3 Neut % (Auto) 86.7 H Lymph % (Auto) 4.9 L [place] % (Auto) 7.0 Eos % (Auto) 1.2 Baso % (Auto) 0.2 Neut # (Auto) 5.3 Lymph # (Auto) 0.3 L [place] # (Auto) 0.4 Eos # (Auto) 0.1 Baso # (Auto) 0.0 Neutrophils % (Manual) 91 H Band Neutrophils % 2 Lymphocytes % (Manual) 3 L Monocytes % (Manual) 3 Eosinophils % (Manual) 1 Platelet Estimate Slightly decreased L Poikilocytosis (manual Slight Basophilic Stippling Slight Anisocytosis (manual) Slight Macrocytosis (manual) Moderate Sodium 131 L Potassium 4.3 Chloride 92 L Carbon Dioxide 25 Anion Gap 18 BUN 42 H Creatinine 5.2 H Est GFR ( Amer) 13 Est GFR (Non-Af Amer) 11 Random Glucose 248 H D Calcium 7.6 L Phosphorus 6.3 H Magnesium 2.4 H Total Bilirubin 0.9 AST 31 ALT 17 L Alkaline Phosphatase 100 NT-Pro-B Natriuret Pep 20723 H Total Protein 7.8 Albumin 3.0 L Globulin 4.8 H Albumin/Globulin Ratio 0.6 L Fluid Source Peritoneal Fluid Appearance Sl cloudy Fluid WBC 133.0 Fluid RBC 2140.0 H Fluid Tot Cell Count 100 H Fluid Neutrophils 18.0 H Fluid Lymphocytes 63.0 H Fld Monocyte/Macrophag 19 H Fluid Comment 09/11/18 10:41 WBC RBC Hgb Hct MCV MCH MCHC RDW Plt Count MPV Neut % (Auto) Lymph % (Auto) [place] % (Auto) Eos % (Auto) Baso % (Auto) Neut # (Auto) Lymph # (Auto) [place] # (Auto) Eos # (Auto) Baso # (Auto) Neutrophils % (Manual) Band Neutrophils % Lymphocytes % (Manual) Monocytes % (Manual) Eosinophils % (Manual) Platelet Estimate Poikilocytosis (manual Basophilic Stippling Anisocytosis (manual) Macrocytosis (manual) Sodium Potassium Chloride Carbon Dioxide Anion Gap BUN Creatinine Est GFR ( Amer) Est GFR (Non-Af Amer) Random Glucose Calcium Phosphorus Magnesium Total Bilirubin AST ALT Alkaline Phosphatase NT-Pro-B Natriuret Pep Total Protein Albumin Globulin Albumin/Globulin Ratio Fluid Source Cancelled Fluid Appearance Cancelled Fluid WBC Cancelled Fluid RBC Cancelled Fluid Tot Cell Count Cancelled Fluid Neutrophils Cancelled Fluid Lymphocytes Cancelled Fld Monocyte/Macrophag Cancelled Fluid Comment Cancelled Fingerstick Blood Sugar Results: 251 Review of Systems - Review of Systems All systems: reviewed and no additional remarkable complaints except Review of Systems: as per hpi Critical Care Progress Note - Nutrition Nutrition: Nutrition Category Date Time Status Renal Diet [DIET] Diets 09/09/18 Lunch Active
[2018-09-11] MEDS ORDERED: Albumin Human 25% (12.5 gm/50 ml) IV ONE (11:00)
--- NOTE | 2018-09-11 11:20 | US ---
Date of Procedure: 09/11/2018 PROCEDURE: Ultrasound-guided paracentesis, CPT 50675 Medications: 7 cc 1% Lidocaine HISTORY: Ascites, abdominal pain TECHNIQUE: Following informed consent , the patient was placed supine on the stretcher and the site was marked. A limited abdominal ultrasound was performed that showed a large amount of intra-abdominal fluid. Procedural time out was called and the Pt's abdomen was marked and prepped and draped in the usual sterile fashion. Ultrasound-guided large volume paracentesis performed. A total of 3 liters of straw colored fluid was removed without complication. IMPRESSION: Ultrasound-guided large volume paracentesis.
[2018-09-11] MEDS: (Novolin R) Insulin Human Regular 100 units/ml vial SC SCH ×3 (11:40→21:34)
[2018-09-11 11:42] LABS: BODY FLUID TYPE PERITONEAL
--- NOTE | 2018-09-11 11:55 | CP.PCM.PN ---
Subjective - Date & Time of Evaluation Date of Evaluation: 09/11/18 Time of Evaluation: 11:53 - Subjective Subjective: 73 yo male with pmhx of ESRD on HD, HTN, Afib on home eliquis, CHF, DM presenting with AMS, hypotension. No HD done on day of admission d/t low BP. Distended abdomen, extensive ascites noted on CT A/P w/o contrast Moderate b/l pleural effusions with b/l lower lobe atelectasis Generalized anasarca Status post diagnostic paracentesis, negative for SBP Ischemic ulcers of b/l LE L>R, recurrent MRSA infection ID recs appreciated, c/w IV vancomycin with HD x 6-8 weeks S/p paracentesis 3L Responds to name Comfortable, no pain Desaturation reported by nursing staff With O2 lying in bed, no distress Difficult to obtain history due to mental status 10 point ros unobtainable due to above Objective - Vital Signs/Intake and Output Vital Signs (last 24 hours): Temp Pulse Resp BP Pulse Ox 97.6 F 81 20 124/63 97 09/11/18 08:00 09/11/18 10:00 09/11/18 10:00 09/11/18 10:00 09/11/18 10:00 Intake and Output: 09/11/18 09/11/18 06:59 18:59 Intake Total 50 320 Balance 50 320 - Medications Medications: Current Medications Apixaban (Eliquis) 2.5 mg PO BID [facility] Last Admin: 09/10/18 17:16 Dose: 2.5 mg Collagenase (Santyl) 1 gm TOP DAILY [facility] Last Admin: 09/11/18 09:25 Dose: Not Given Dicyclomine HCl (Bentyl) 10 mg PO QID [facility] Last Admin: 09/11/18 09:30 Dose: 10 mg Vancomycin/Sodium Chloride (Vancomycin 1 Gm/Ns 200 Ml) 1 gm in 200 mls @ 133 mls/hr IVPB MWF [facility]; Protocol Stop: 09/16/18 09:01 Last Admin: 09/11/18 09:29 Dose: 133 mls/hr Insulin Human Regular (Novolin R) 0 unit SC ACHS [facility]; Protocol Last Admin: 09/11/18 11:40 Dose: 5 u Lactulose (Enulose) 15 gm PO BID [facility] Last Admin: 09/11/18 09:30 Dose: 15 gm Methylprednisolone (Solu-Medrol) 20 mg IVP Q12 [facility] Last Admin: 09/11/18 09:29 Dose: 20 mg Rosuvastatin Calcium (Crestor) 5 mg PO HS [facility] Last Admin: 09/10/18 21:05 Dose: 5 mg Sevelamer Carbonate (Renvela) 800 mg PO TID [facility] Last Admin: 09/11/18 09:30 Dose: 800 mg Tamsulosin HCl (Flomax) 0.4 mg PO DAILY [facility] Last Admin: 09/11/18 09:30 Dose: 0.4 mg Vitamin B Complex/Vit C/Folic Acid (Nephro-Amita) 1 tab PO DAILY [facility] Last Admin: 09/11/18 09:30 Dose: 1 tab - Labs Labs: 09/11/18 05:36 09/11/18 05:36 PT 14.7 SECONDS (9.7-12.2) H 09/08/18 10:47 INR 1.3 09/08/18 10:47 APTT 52.5 SECONDS (21-34) H D 09/08/18 10:47 - Constitutional Appears: Confused, Chronically Ill - Head Exam Head Exam: ATRAUMATIC, NORMAL INSPECTION - Eye Exam Eye Exam: EOMI, Normal appearance - ENT Exam ENT Exam: Mucous Membranes Moist, Normal Oropharynx - Neck Exam Neck Exam: absent: Lymphadenopathy, Thyromegaly - Respiratory Exam Respiratory Exam: Rales, Rhonchi - Cardiovascular Exam Cardiovascular Exam: +S1, +S2. absent: Rubs - GI/Abdominal Exam GI & Abdominal Exam: Soft, Normal Bowel Sounds - Extremities Exam Extremities Exam: Pedal Edema. absent: Tenderness - Neurological Exam Neurological Exam: Awake - Skin Skin Exam: Dry, Warm Assessment and Plan (1) Ascites Status: Acute (2) Anemia Status: Acute (3) CHF (congestive heart failure) Status: Acute (4) Cardiomyopathy Status: Acute (5) PVD (peripheral vascular disease) Status: Acute (6) Type 2 diabetes mellitus with diabetic nephropathy Status: Acute (7) ESRD (end stage renal disease) on dialysis Status: Chronic - Assessment and Plan (Free Text) Assessment: Schedule dialysis today for control of volume overload, hyponatremia and azotemia Monitor bp post paracentesis IV albumin if required Continue icu care
[2018-09-11 12:54] LABS: BF GROSS APPEARANCE SL CLOUDY (CLEAR); BODY FLUID MONO/MACROPHAGE 6 % (0-0); BODY FLUID TOTAL COUNT 100 (0-0)
[2018-09-12 05:17] LABS: BASO % 0.1 % (0.0-2.0); EOS % 0.1 % (0.0-4.0); HEMOGLOBIN 9.7 g/dL (12.0-18.0); LYMPH # 0.2 K/uL (1.0-4.3); LYMPH % 2.8 % (20.0-40.0); MEAN CELL VOLUME 104.1 fL (80.0-94.0); MEAN CORPUSCULAR HEMOGLOBIN 33.3 pg (27.0-31.0); MONO # 0.2 K/uL (0.0-0.8); MONO % 2.1 % (0.0-10.0); NEUT % 94.9 % (50.0-75.0); NRBC % 0.2 % (0.0-2.0); PLATELET COUNT 130 K/uL (130-400); RBC 2.93 Mil/uL (4.40-5.90); RED CELL DISTRIBUTION WIDTH 17.5 % (11.5-14.5); WHITE BLOOD COUNT 8.4 K/uL (4.8-10.8)
[2018-09-12 05:35] LABS: ALB/GLOB RATIO 0.7 (1.0-2.1); ALBUMIN 3.2 g/dL (3.5-5.0); CALCIUM 7.4 mg/dl (8.6-10.4)
--- NOTE | 2018-09-12 07:25 | CP.PCM.PN ---
<Genesis Hogue - Last Filed: 09/12/18 15:31> Subjective - Date & Time of Evaluation Date of Evaluation: 09/12/18 Time of Evaluation: 07:00 - Subjective Subjective: GI Fellow PGY5 Progress Note Pt seen and evaluated at bedside, pt reports abdominal distention better after large volume paracentesis. ROS: A 12pt ROS was negative except as above. Objective - Vital Signs/Intake and Output Vital Signs (last 24 hours): Temp Pulse Resp BP Pulse Ox 97.4 F L 70 14 123/56 L 100 09/12/18 04:00 09/12/18 07:00 09/12/18 07:00 09/12/18 06:51 09/12/18 04:00 Intake and Output: 09/12/18 09/12/18 06:59 18:59 Intake Total 195 0 Balance 195 0 - Medications Medications: Current Medications Apixaban (Eliquis) 2.5 mg PO BID [facility] Last Admin: 09/10/18 17:16 Dose: 2.5 mg Collagenase (Santyl) 1 gm TOP DAILY [facility] Last Admin: 09/11/18 09:25 Dose: Not Given Dicyclomine HCl (Bentyl) 10 mg PO QID [facility] Last Admin: 09/11/18 21:33 Dose: 10 mg Vancomycin/Sodium Chloride (Vancomycin 1 Gm/Ns 200 Ml) 1 gm in 200 mls @ 133 mls/hr IVPB MWF [facility]; Protocol Stop: 09/16/18 09:01 Last Admin: 09/11/18 09:29 Dose: 133 mls/hr Insulin Human Regular (Novolin R) 0 unit SC ACHS [facility]; Protocol Last Admin: 09/11/18 21:34 Dose: Not Given Lactulose (Enulose) 15 gm PO BID [facility] Last Admin: 09/11/18 17:53 Dose: 15 gm Methylprednisolone (Solu-Medrol) 20 mg IVP Q12 [facility] Last Admin: 09/11/18 21:33 Dose: 20 mg Rosuvastatin Calcium (Crestor) 5 mg PO HS [facility] Last Admin: 09/11/18 21:33 Dose: 5 mg Sevelamer Carbonate (Renvela) 800 mg PO TID [facility] Last Admin: 09/11/18 17:54 Dose: 800 mg Tamsulosin HCl (Flomax) 0.4 mg PO DAILY [facility] Last Admin: 09/11/18 09:30 Dose: 0.4 mg Vitamin B Complex/Vit C/Folic Acid (Nephro-Amita) 1 tab PO DAILY [facility] Last Admin: 09/11/18 09:30 Dose: 1 tab - Labs Labs: 09/12/18 05:13 09/12/18 05:13 PT 14.7 SECONDS (9.7-12.2) H 09/08/18 10:47 INR 1.3 09/08/18 10:47 APTT 52.5 SECONDS (21-34) H D 09/08/18 10:47 - Constitutional Appears: Non-toxic, No Acute Distress, Confused, Cachectic, Chronically Ill - Head Exam Head Exam: ATRAUMATIC, NORMAL INSPECTION, NORMOCEPHALIC - Eye Exam Eye Exam: EOMI, Normal appearance, PERRL - ENT Exam ENT Exam: Mucous Membranes Moist, Normal Exam - Neck Exam Neck Exam: Full ROM, Normal Inspection - Respiratory Exam Respiratory Exam: Decreased Breath Sounds, NORMAL BREATHING PATTERN - Cardiovascular Exam Cardiovascular Exam: Irregular Rhythm, +S1, +S2 - GI/Abdominal Exam GI & Abdominal Exam: Soft, Normal Bowel Sounds. absent: Distended, Firm, Guarding, Tenderness - Extremities Exam Extremities Exam: Pedal Edema - Neurological Exam Neurological Exam: Alert, Awake - Psychiatric Exam Psychiatric exam: Normal Affect, Normal Mood - Skin Skin Exam: Abrasion, Dry, Erythema, Intact, Normal Color, Warm Assessment and Plan - Assessment and Plan (Free Text) Assessment: 73-year-old [place] male with a past medical history of PAD, CHF (BiV CHF, LVEF 50% with decreased RV systolic function and pulmonary hypertension), ESRD on HD, Atrial fibrillation (on Apixaban), hyperlipidemia, diabetes (c/b foot ulcers), mild dementia, who was admitted on 09/06/18 after a fall in his [facility]. He was found to have low blood pressure and anasarca. Therefore, he was admitted for further evaluation and treated for possible sepsis related to questionable as SBP. G.I. consulted for further evaluation. 1. Ascites 2. ESRD on HD 3. CHF 4. Afib Plan: Liver is fatty on US with cirrhosis on CT, no splenomegaly - Diagnostic para was negative for SBP Therapeutic paracentesis with IR 3L removed and given 50g albumin - Given right sided heart failure with severe pulmonary hypertension, favor cardiac induced - Recommend Cardiology consult, discussed with ICU team - Checked BNP elevated at 34,900 - Low Na diet - Ascitic fluid Total protein and albumin pending - Please call with any questions or concerns <Carissa Anderson - Last Filed: 09/12/18 19:43> Objective - Vital Signs/Intake and Output Vital Signs (last 24 hours): Temp Pulse Resp BP Pulse Ox 97.4 F L 80 14 111/57 L 76 L 09/12/18 16:00 09/12/18 18:37 09/12/18 18:37 09/12/18 18:38 09/12/18 18:37 Intake and Output: 09/12/18 09/13/18 18:59 06:59 Intake Total 650 Balance 650 - Medications Medications: Current Medications Acetaminophen (Tylenol 325mg Tab) 650 mg PO Q6 PRN PRN Reason: Pain, Mild (1-3) Last Admin: 09/12/18 18:36 Dose: 650 mg Apixaban (Eliquis) 2.5 mg PO BID [facility] Last Admin: 09/12/18 17:00 Dose: 2.5 mg Collagenase (Santyl) 1 gm TOP DAILY [facility] Last Admin: 09/12/18 09:30 Dose: 1 applic Dicyclomine HCl (Bentyl) 10 mg PO QID [facility] Last Admin: 09/12/18 17:00 Dose: 10 mg Famotidine (Pepcid) 20 mg PO DAILY [facility] Vancomycin/Sodium Chloride (Vancomycin 1 Gm/Ns 200 Ml) 1 gm in 200 mls @ 133 mls/hr IVPB MWF [facility]; Protocol Stop: 09/16/18 09:01 Last Admin: 09/11/18 09:29 Dose: 133 mls/hr Insulin Human Regular (Novolin R) 0 unit SC ACHS [facility]; Protocol Last Admin: 09/12/18 17:01 Dose: 2 units Lactulose (Enulose) 15 gm PO BID [facility] Last Admin: 09/12/18 17:00 Dose: 15 gm Methylprednisolone (Solu-Medrol) 20 mg IVP Q12 [facility] Rosuvastatin Calcium (Crestor) 5 mg PO HS [facility] Sevelamer Carbonate (Renvela) 800 mg PO TIDCC [facility] Last Admin: 09/12/18 17:01 Dose: 800 mg Tamsulosin HCl (Flomax) 0.4 mg PO DAILY [facility] Vitamin B Complex/Vit C/Folic Acid (Nephro-Amita) 1 tab PO DAILY [facility] - Labs Labs: 09/12/18 05:13 09/12/18 05:13 PT 14.7 SECONDS (9.7-12.2) H 09/08/18 10:47 INR 1.3 09/08/18 10:47 APTT 52.5 SECONDS (21-34) H D 09/08/18 10:47 Attending/Attestation - Attestation I have personally seen and examined this patient.: No I have fully participated in the care of the patient.: Yes Notes (Text): 09/12/18 19:42 I have discussed this pt with the GI fellow. Recommend cardiology consult as suspect new onset ascites secondary to worsening cardiac function. At the very minimum, would recommend repeat ECHO.
[2018-09-12] MEDS: (Novolin R) Insulin Human Regular 100 units/ml vial SC SCH ×4 (08:20→21:45)
[2018-09-12 08:24] LABS: ANISOCYTOSIS SLIGHT; BANDS 2 % (0-2); LYMPHOCYTE 1 % (20-40); MONOCYTE 1 % (0-10); NEUTROPHIL 96 % (50-75); PLATELET ESTIMATE NORMAL (NORMAL); TARGET CELLS SLIGHT; TOTAL CELLS COUNTED 100
--- NOTE | 2018-09-12 09:09 | CP.PCM.PN ---
Subjective - Date & Time of Evaluation Date of Evaluation: 09/12/18 Time of Evaluation: 09:10 - Subjective Subjective: bp stable afebrile paracentesis last PM removed 3 liters dialysis with ultrafiltration also up in chair awake alert ROS no chills,fever no sob or cough no n,v,d,no abd pain anuric Objective - Vital Signs/Intake and Output Vital Signs (last 24 hours): Temp Pulse Resp BP Pulse Ox 97.4 F L 74 16 115/49 L 98 09/12/18 04:00 09/12/18 07:53 09/12/18 07:53 09/12/18 07:53 09/12/18 07:22 Intake and Output: 09/12/18 09/12/18 06:59 18:59 Intake Total 195 0 Balance 195 0 - Medications Medications: Current Medications Apixaban (Eliquis) 2.5 mg PO BID [facility] Last Admin: 09/10/18 17:16 Dose: 2.5 mg Collagenase (Santyl) 1 gm TOP DAILY [facility] Last Admin: 09/11/18 09:25 Dose: Not Given Dicyclomine HCl (Bentyl) 10 mg PO QID [facility] Last Admin: 09/11/18 21:33 Dose: 10 mg Famotidine (Pepcid) 20 mg PO BID [facility] Vancomycin/Sodium Chloride (Vancomycin 1 Gm/Ns 200 Ml) 1 gm in 200 mls @ 133 mls/hr IVPB MWF [facility]; Protocol Stop: 09/16/18 09:01 Last Admin: 09/11/18 09:29 Dose: 133 mls/hr Insulin Human Regular (Novolin R) 0 unit SC ACHS [facility]; Protocol Last Admin: 09/12/18 08:20 Dose: 1 u Lactulose (Enulose) 15 gm PO BID [facility] Last Admin: 09/11/18 17:53 Dose: 15 gm Methylprednisolone (Solu-Medrol) 20 mg IVP Q12 [facility] Last Admin: 09/11/18 21:33 Dose: 20 mg Rosuvastatin Calcium (Crestor) 5 mg PO HS [facility] Last Admin: 09/11/18 21:33 Dose: 5 mg Sevelamer Carbonate (Renvela) 800 mg PO TID [facility] Last Admin: 09/11/18 17:54 Dose: 800 mg Tamsulosin HCl (Flomax) 0.4 mg PO DAILY [facility] Last Admin: 09/11/18 09:30 Dose: 0.4 mg Vitamin B Complex/Vit C/Folic Acid (Nephro-Amita) 1 tab PO DAILY [facility] Last Admin: 09/11/18 09:30 Dose: 1 tab - Labs Labs: 09/12/18 05:13 09/12/18 05:13 PT 14.7 SECONDS (9.7-12.2) H 09/08/18 10:47 INR 1.3 09/08/18 10:47 APTT 52.5 SECONDS (21-34) H D 09/08/18 10:47 - Constitutional Appears: No Acute Distress, Chronically Ill - Head Exam Head Exam: ATRAUMATIC, NORMOCEPHALIC - ENT Exam ENT Exam: Mucous Membranes Moist - Neck Exam Neck Exam: Lymphadenopathy - Respiratory Exam Respiratory Exam: Decreased Breath Sounds, NORMAL BREATHING PATTERN. absent: Rales, Rhonchi, Wheezes - Cardiovascular Exam Cardiovascular Exam: REGULAR RHYTHM - GI/Abdominal Exam GI & Abdominal Exam: Distended, Soft. absent: Tenderness - Extremities Exam Extremities Exam: absent: Calf Tenderness, Pedal Edema Additional comments: feet bandaged - Neurological Exam Neurological Exam: Alert, Awake - Psychiatric Exam Psychiatric exam: Normal Mood - Skin Skin Exam: Dry, Warm Assessment and Plan (1) Ascites Status: Acute (2) Atrial fibrillation Status: Acute (3) CHF (congestive heart failure) Status: Acute (4) Cardiomyopathy Status: Acute (5) Cellulitis of left lower leg Status: Acute (6) Foot osteomyelitis Status: Acute (7) PAD (peripheral artery disease) Status: Acute (8) Type 2 diabetes mellitus with diabetic nephropathy Status: Acute (9) ESRD on hemodialysis Status: Chronic - Assessment and Plan (Free Text) Plan: case discussed with ICU team contniue supportive care dialysis with ultrafiltration scheduled for 09/13 orders wriitten follow chems closely
[2018-09-12] MEDS: Multivitamin Vitamin B Complex (Nephro-Vite) Tab PO SCH (09:22)
[2018-09-12] MEDS: MethylPREDNISolone 40 mg Vial IVP SCH ×2 (09:23→21:39)
[2018-09-12] MEDS: Collagenase 250 Units/gm Ointment(30 gm) TOP SCH (09:30)
--- NOTE | 2018-09-12 12:23 | CP.PCM.PN ---
Subjective - Date & Time of Evaluation Date of Evaluation: 09/12/18 Time of Evaluation: 09:00 - Subjective Subjective: seen on rounds remains bedridden'less facial swelling no fever Objective - Vital Signs/Intake and Output Vital Signs (last 24 hours): Temp Pulse Resp BP Pulse Ox 97.5 F L 71 17 117/57 L 97 09/12/18 08:00 09/12/18 12:16 09/12/18 12:16 09/12/18 12:16 09/12/18 12:16 Intake and Output: 09/12/18 09/12/18 06:59 18:59 Intake Total 195 100 Balance 195 100 - Medications Medications: Current Medications Apixaban (Eliquis) 2.5 mg PO BID [facility] Last Admin: 09/12/18 09:21 Dose: 2.5 mg Collagenase (Santyl) 1 gm TOP DAILY [facility] Last Admin: 09/12/18 09:30 Dose: 1 applic Dicyclomine HCl (Bentyl) 10 mg PO QID [facility] Last Admin: 09/12/18 09:21 Dose: 10 mg Famotidine (Pepcid) 20 mg PO DAILY [facility] Last Admin: 09/12/18 09:23 Dose: 20 mg Vancomycin/Sodium Chloride (Vancomycin 1 Gm/Ns 200 Ml) 1 gm in 200 mls @ 133 mls/hr IVPB MWF [facility]; Protocol Stop: 09/16/18 09:01 Last Admin: 09/11/18 09:29 Dose: 133 mls/hr Insulin Human Regular (Novolin R) 0 unit SC ACHS [facility]; Protocol Last Admin: 09/12/18 08:20 Dose: 1 u Lactulose (Enulose) 15 gm PO BID [facility] Last Admin: 09/12/18 09:21 Dose: 15 gm Methylprednisolone (Solu-Medrol) 20 mg IVP Q12 [facility] Last Admin: 09/12/18 09:23 Dose: 20 mg Rosuvastatin Calcium (Crestor) 5 mg PO HS [facility] Last Admin: 09/11/18 21:33 Dose: 5 mg Sevelamer Carbonate (Renvela) 800 mg PO TID [facility] Last Admin: 09/12/18 09:23 Dose: 800 mg Tamsulosin HCl (Flomax) 0.4 mg PO DAILY [facility] Last Admin: 09/12/18 09:22 Dose: 0.4 mg Vitamin B Complex/Vit C/Folic Acid (Nephro-Amita) 1 tab PO DAILY [facility] Last Admin: 09/12/18 09:22 Dose: 1 tab - Labs Labs: 09/12/18 05:13 09/12/18 05:13 PT 14.7 SECONDS (9.7-12.2) H 09/08/18 10:47 INR 1.3 09/08/18 10:47 APTT 52.5 SECONDS (21-34) H D 09/08/18 10:47 - Constitutional Appears: Non-toxic, No Acute Distress, Chronically Ill - Head Exam Head Exam: ATRAUMATIC, NORMAL INSPECTION, NORMOCEPHALIC - Eye Exam Eye Exam: EOMI, Normal appearance, PERRL Pupil Exam: NORMAL ACCOMODATION, PERRL - ENT Exam ENT Exam: Mucous Membranes Moist, Normal Exam - Neck Exam Neck Exam: Full ROM, Normal Inspection. absent: Lymphadenopathy - Respiratory Exam Respiratory Exam: Clear to Ausculation Bilateral, NORMAL BREATHING PATTERN - Cardiovascular Exam Cardiovascular Exam: REGULAR RHYTHM, +S1, +S2. absent: Murmur - GI/Abdominal Exam GI & Abdominal Exam: Soft, Normal Bowel Sounds. absent: Tenderness - Rectal Exam Rectal Exam: Deferred - Exam Exam: NORMAL INSPECTION - Extremities Exam Extremities Exam: Full ROM, Normal Capillary Refill, Normal Inspection. absent: Joint Swelling, Pedal Edema - Back Exam Back Exam: NORMAL INSPECTION - Neurological Exam Neurological Exam: Alert, Awake, CN II-XII Intact, Normal Gait, Oriented x3 - Psychiatric Exam Psychiatric exam: Normal Affect, Normal Mood - Skin Skin Exam: Dry Additional comments: uklcers both feet and legs L>R Assessment and Plan (1) Anemia Status: Acute (2) Atrial fibrillation Status: Acute (3) Bilateral lower leg cellulitis Status: Acute (4) CHF (congestive heart failure) Status: Acute (5) Cardiomyopathy Status: Acute (6) Cellulitis and abscess of left leg Status: Acute - Assessment and Plan (Free Text) Assessment: possible OM podiatry on board 'rx to continue
--- NOTE | 2018-09-12 16:01 | CP.PCM.PN ---
Subjective - Date & Time of Evaluation Date of Evaluation: 09/12/18 Time of Evaluation: 16:01 - Subjective Subjective: Podiatry Progress Note: Dr. Alfredo Cavanaugh 73 y/o male seen and evaluated at bedside this morning in the ICU with attending Dr. Alfredo Cavanaugh for bilateral lower extremity ulcerations. Patient denies any pain to the lower extremities at the ulceration sites. He says he has been wearing his offloading boots at all times in bed. Patient's and daughter at bedside at time of visit. Denies of having any overnight F/N/V/C/SOB. Objective - Vital Signs/Intake and Output Vital Signs (last 24 hours): Temp Pulse Resp BP Pulse Ox 98.1 F 70 14 105/63 86 L 09/12/18 12:00 09/12/18 14:15 09/12/18 14:15 09/12/18 14:15 09/12/18 14:15 Intake and Output: 09/12/18 09/12/18 06:59 18:59 Intake Total 195 300 Balance 195 300 - Medications Medications: Current Medications Apixaban (Eliquis) 2.5 mg PO BID [facility] Collagenase (Santyl) 1 gm TOP DAILY [facility] Last Admin: 09/12/18 09:30 Dose: 1 applic Dicyclomine HCl (Bentyl) 10 mg PO QID [facility] Famotidine (Pepcid) 20 mg PO DAILY [facility] Vancomycin/Sodium Chloride (Vancomycin 1 Gm/Ns 200 Ml) 1 gm in 200 mls @ 133 mls/hr IVPB MWF [facility]; Protocol Stop: 09/16/18 09:01 Last Admin: 09/11/18 09:29 Dose: 133 mls/hr Insulin Human Regular (Novolin R) 0 unit SC ACHS [facility]; Protocol Lactulose (Enulose) 15 gm PO BID [facility] Methylprednisolone (Solu-Medrol) 20 mg IVP Q12 [facility] Rosuvastatin Calcium (Crestor) 5 mg PO HS [facility] Sevelamer Carbonate (Renvela) 800 mg PO TIDCC [facility] Last Admin: 09/12/18 14:16 Dose: 800 mg Tamsulosin HCl (Flomax) 0.4 mg PO DAILY [facility] Vitamin B Complex/Vit C/Folic Acid (Nephro-Amita) 1 tab PO DAILY [facility] - Labs Labs: 09/12/18 05:13 05/14/19 05:13 PT 14.7 SECONDS (9.7-12.2) H 09/08/18 10:47 INR 1.3 09/08/18 10:47 APTT 52.5 SECONDS (21-34) H D 09/08/18 10:47 - Constitutional Appears: Well, Non-toxic, No Acute Distress - Extremities Exam Additional comments: B/L Lower extremity focused exam: VASC: DP/PT pulses are non-palpable at this time B/L. Temperature gradient warm to warm B/L. CFT delayed > 3 sec to all digits on the left and approximately 3 sec to the right. NEURO: Protective sensation slightly diminished. DERM: RLE: Lateral mid leg ulceration measuring approximately 2.2cm x 0.9cm x 0.5cm extending down to the level of muscle tissue. No active drainage or purulence, no malodor, no fluctuance or jackson wound erythema. An ulcer noted on the medial aspect of the 1st MPJ covered with black eschar 2 cm in diameter with hyperkeratotic edge. Base is mixed fibronecrotic. No drainage, no malodor, no probe to bone, no undermining. Another nonstageable ulcer noted on the plantar h eel measuring 5 cm X 4 cm covered with black eschar. No drainage, no malodor, no probe to bone, no undermining. LLE: An ulcer noted on the medial aspect of the 1st MPJ covered with black eschar measuring approximately 2 cm X 1 cm. Base is necrotic, with no drainage, no malodor, no probe to bone, no undermining or tunneling. Additional circular ulceration noted on the medial side of the hallux approximately 0.5 cm in diameter covered with black eschar. Base is necrotic, with no drainage, no paty emigdio, no probe to bone, no undermining or tunneling. 2 ulcerations noted on the plantar aspect of the 4th and 5th MPJ measuring 2 cm x 1 cm x 0.1cm and 1.5 cm X 0.8 cm x 0.1cm covered with black eschar. Wound bases are necrotic, with no drainage, no malodor, no probe to bone, no undermining. Another non stageable ulcer noted on the plantar heel measuring 5.5 cm X 4.2 cm covered with black eschar. No drainage, Nno malodor, no probe to bone, no undermining. MSK: No tenderness to palpation of B/L lower extremity ulcerations. MMT 3/5 B/L to all groups - Neurological Exam Neurological Exam: Alert, Awake, Oriented x3 - Psychiatric Exam Psychiatric exam: Normal Affect, Normal Mood Assessment and Plan - Assessment and Plan (Free Text) Assessment: 73 year old male patient seen and evaluated at bedside in the ICU for worsening bilateral LE ulcerations (L>R). Plan: Patient seen and evaluated in ICU this morning with Dr. Cavanaugh B/L foot x-rays: No evidence of acute displaced fracture nor dislocation. No definitive evidence of cortical destructive changes seen. Questionable surface ulceration medial aspect 1st digit with surrounding soft tissue swelling; rule out cellulitis. Consider follow-up MRI for further evaluation Wound sites flushed with saline and dressings to bilateral LE applied using Santyl, ABD, DSD Wound culture prelim: MRSA ID on board, IV abx as per ID recommendations Vascular consult, Dr. Macias B/L venous duplex: no evidence of DVT Abdominal angiogram (08/24): No abdominal aortic aneurysm. Scattered atherosclerotic plaque throughout the abdominal aorta and its main branches. 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 Diminutive caliber of the right renal artery. Right lower extremity: Scattered calcific and noncalcific plaque in the common femoral and superficial femoral arteries with area of focal severe stenosis due in the distal 1/3 segment of the superficial femoral artery. Patent popliteal artery and below-knee arteries. Left lower extremity: Scattered calcific and noncalcific plaque in the common femoral and superficial femoral arteries with short segment area of severe stenosis in the distal 1/3 segment. Patent popliteal artery. Moderate segment stenosis of the proximal posterior tibial artery, stable with distal reconstitution to the level of the ankle. Patent peroneal and anterior tibial arteries with scattered calcific plaque. FARRUKH/PVR (08/25): B/L Moderate infrapopliteal occlusive disease with medial arterial calcification. No plans for surgical intervention from podiatry standpoint at this time Will continue with local wound care Podiatry will continue to follow up the patient while in-house
[2018-09-13 05:03] LABS: BASO % 0.2 % (0.0-2.0); EOS % 0.1 % (0.0-4.0); HEMOGLOBIN 9.4 g/dL (12.0-18.0); LYMPH # 0.1 K/uL (1.0-4.3); LYMPH % 1.9 % (20.0-40.0); MEAN CORPUSCULAR HEMOGLOBIN 33.4 pg (27.0-31.0); MEAN CORPUSCULAR HGB CONC 32.5 g/dL (33.0-37.0); MEAN PLATELET VOLUME 9.4 fL (7.2-11.7); MONO # 0.2 K/uL (0.0-0.8); MONO % 2.8 % (0.0-10.0); NEUT # 7.2 K/uL (1.8-7.0); NRBC % 0.1 % (0.0-2.0); PLATELET COUNT 132 K/uL (130-400); RBC 2.81 Mil/uL (4.40-5.90); RED CELL DISTRIBUTION WIDTH 17.6 % (11.5-14.5); WHITE BLOOD COUNT 7.6 K/uL (4.8-10.8)
[2018-09-13 05:14] LABS: INR 1.5; PARTIAL THROMBOPLASTIN TIME 39.9 SECONDS (21-34); PROTHROMBIN TIME 16.2 SECONDS (9.7-12.2)
[2018-09-13 05:38] LABS: ALB/GLOB RATIO 0.7 (1.0-2.1); ALBUMIN 2.5 g/dL (3.5-5.0); CALCIUM 7.5 mg/dl (8.6-10.4)
[2018-09-13] MEDS: (Novolin R) Insulin Human Regular 100 units/ml vial SC SCH ×4 (08:18→21:26)
[2018-09-13 08:27] LABS: LYMPHOCYTE 1 % (20-40); MONOCYTE 3 % (0-10); NEUTROPHIL 96 % (50-75); TOTAL CELLS COUNTED 100
[2018-09-13 08:28] LABS: ANISOCYTOSIS SLIGHT; HYPERSEGMENTATION PRESENT
[2018-09-13 08:43] LABS: PLATELET ESTIMATE NORMAL (NORMAL)
[2018-09-13] MEDS: Multivitamin Vitamin B Complex (Nephro-Vite) Tab PO SCH (09:50)
[2018-09-13] MEDS: MethylPREDNISolone 40 mg Vial IVP SCH ×2 (09:51→21:09)
--- NOTE | 2018-09-13 11:00 | CP.PCM.CON ---
<Albert Chester - Last Filed: 09/13/18 16:16> History of Present Illness - History of Present Illness History of Present Illness: PGY2 Cardiology Consult Note for Dr. Dockery Reason for Consult: Pulmonary HTN, Hypokinetic RV Patient is a 73 year old male with a past medical history of PAD, CHF (BiV CHF, LVEF 50% with decreased RV systolic function and pulmonary hypertension), ESRD on HD, Atrial fibrillation (on Apixaban), hyperlipidemia, diabetes (c/b foot ulcers) was transferred to [facility] from a retirement due to hypotension. He was admitted to the ICU and has been being treated for hypotension, ascities and possible sepsis. He had a diagnostic paracentesis which was negative for SBP. He had a therapeutic paracentesis which removed 3L of fluid. He has an elevated BNP which and upon further review of his chart, it was noticed that he had a hypokinetic RV. It was suspected that patient's hypotension and ascites is more likely secondary to his cardiac function than his renal failure or sepsis. Patient is currently resting comfortably without any complaints. He denies any cardiac history, reporting that he has never had a OR, cardiac cath or a stress test. He reports feeling well, denies fevers, chills, shortness of breath, orthopnea, chest pain, lightheadedness or d izziness. PMH: PAD, CHF (LVEF 50% with decreased RV systolic function and pulmonary hypertension), ESRD on HD, Atrial fibrillation (on Eliqius), hyperlipidemia, diabetes (c/b foot ulcers) PSH: AV fistula, cataract surgery, multiple wound debridements with skin grafts to left ankle and foot ulcers Social: No tobacco, EtOH, or drug use. FH: Non contributory All: NKDA Past Patient History - Infectious Disease Hx of Infectious Diseases: None - Tetanus Immunizations Tetanus Immunization: Unknown - Past Medical History & Family History Past Medical History?: Yes Past Family History: Reviewed and not pertinent - Past Social History Smoking Status: Never Smoked Alcohol: None Drugs: Denies - CARDIAC Hx Cardia Arrhythmia: Yes (A FIB/FLUTTER) Hx Congestive Heart Failure: Yes Hx Hypercholesterolemia: Yes Hx Hypertension: Yes - PULMONARY Hx Respiratory Disorders: No - NEUROLOGICAL Hx Neurological Disorder: No - HEENT Hx HEENT Problems: Yes Hx Cataracts: Yes (BILAT.) - RENAL Hx Chronic Kidney Disease: Yes - ENDOCRINE/METABOLIC Hx Diabetes Mellitus Type 1: Yes - HEMATOLOGICAL/ONCOLOGICAL Hx Blood Disorders: Yes Hx Blood Transfusions: Yes - INTEGUMENTARY Hx Dermatological Problems: No - MUSCULOSKELETAL/RHEUMATOLOGICAL Hx Arthritis: Yes - GASTROINTESTINAL Hx Gastrointestinal Disorders: Yes Other/Comment: BLOOD IN STOOL - GENITOURINARY/GYNECOLOGICAL Hx Genitourinary Disorders: Yes Hx Hematuria: Yes Hx Prostate Problems: Yes Hx Urinary Tract Infection: Yes - PSYCHIATRIC Hx Substance Use: No - SURGICAL HISTORY Hx Surgeries: Yes Hx Arteriovenous Shunt: Yes (AV FISTULA RIGHT ARM) Hx Cataract Extraction: Yes (BILAT.) Hx Eye Surgery: Yes (LEFT EYE) Other/Comment: SKIN GRAFT LEFT FOOT - ANESTHESIA Hx Anesthesia: Yes Hx Anesthesia Reactions: No Hx Malignant Hyperthermia: No Meds Allergies/Adverse Reactions: Allergies Allergy/AdvReac Type Severity Reaction Status Date / Time No Known Allergies Allergy Verified 09/07/18 19:02 - Medications Medications: Current Medications Acetaminophen (Tylenol 325mg Tab) 650 mg PO Q6 PRN PRN Reason: Pain, Mild (1-3) Last Admin: 09/12/18 18:36 Dose: 650 mg Apixaban (Eliquis) 2.5 mg PO BID [facility] Last Admin: 09/13/18 09:50 Dose: 2.5 mg Collagenase (Santyl) 1 gm TOP DAILY [facility] Last Admin: 09/12/18 09:30 Dose: 1 applic Dicyclomine HCl (Bentyl) 10 mg PO QID [facility] Last Admin: 09/13/18 09:50 Dose: 10 mg Famotidine (Pepcid) 20 mg PO DAILY [facility] Last Admin: 09/13/18 09:50 Dose: 20 mg Vancomycin/Sodium Chloride (Vancomycin 1 Gm/Ns 200 Ml) 1 gm in 200 mls @ 133 mls/hr IVPB [facility] [place]; Protocol Stop: 09/16/18 09:01 Last Admin: 09/11/18 09:29 Dose: 133 mls/hr Insulin Human Regular (Novolin R) 0 unit SC [facility]; Protocol Last Admin: 09/13/18 08:18 Dose: 2 units Lactulose (Enulose) 15 gm PO BID [facility] Last Admin: 09/13/18 09:51 Dose: 15 gm Methylprednisolone (Solu-Medrol) 20 mg IVP Q12 [facility] Last Admin: 09/13/18 09:51 Dose: 20 mg Rosuvastatin Calcium (Crestor) 5 mg PO HS [facility] Last Admin: 09/12/18 21:39 Dose: 5 mg Sevelamer Carbonate (Renvela) 800 mg PO TIDCC [facility] Last Admin: 09/13/18 08:37 Dose: 800 mg Tamsulosin HCl (Flomax) 0.4 mg PO DAILY [facility] Last Admin: 09/13/18 09:50 Dose: 0.4 mg Vitamin B Complex/Vit C/Folic Acid (Nephro-Amita) 1 tab PO DAILY [facility] Last Admin: 09/13/18 09:50 Dose: 1 tab Physical Exam - Constitutional Appears: Cachectic, Chronically Ill - Head Exam Additional comments: ecchymosis across entire face - Eye Exam Eye Exam: EOMI - ENT Exam ENT Exam: Mucous Membranes Moist - Neck Exam Neck exam: Negative for: Lymphadenopathy, Tenderness - Respiratory Exam Respiratory Exam: Decreased Breath Sounds, NORMAL BREATHING PATTERN. absent: Accessory Muscle Use, Rales, Rhonchi, Wheezes, Respiratory Distress - Cardiovascular Exam Cardiovascular Exam: REGULAR RHYTHM, +S1, +S2 - GI/Abdominal Exam GI & Abdominal Exam: Soft. absent: Distended, Firm, Guarding, Rigid, Tenderness - Extremities Exam Extremities exam: Positive for: tenderness. Negative for: calf tenderness, pedal edema Additional comments: pressure ulcer boots in place b/l AV fistula on right arm - Neurological Exam Neurological exam: Alert, Oriented x3 - Psychiatric Exam Psychiatric exam: Normal Affect, Normal Mood - Skin Skin Exam: Dry, Warm Results - Vital Signs Recent Vital Signs: Last Vital Signs Temp 96.9 F L 09/13/18 08:00 Pulse 79 09/13/18 10:00 Resp 12 09/13/18 10:00 BP 111/57 L 09/13/18 10:00 Pulse Ox 100 09/13/18 10:00 - Labs Result Diagrams: 09/13/18 04:53 09/13/18 04:53 Labs: Laboratory Results - last 24 hr 09/13/18 09/13/18 09/13/18 04:53 04:53 04:53 WBC 7.6 RBC 2.81 L Hgb 9.4 L Hct 28.9 L MCV 103.0 H MCH 33.4 H MCHC 32.5 L RDW 17.6 H Plt Count 132 MPV 9.4 Neut % (Auto) 95.0 H Lymph % (Auto) 1.9 L [place] % (Auto) 2.8 Eos % (Auto) 0.1 Baso % (Auto) 0.2 Neut # (Auto) 7.2 H Lymph # (Auto) 0.1 L [place] # (Auto) 0.2 Eos # (Auto) 0.0 Baso # (Auto) 0.0 Neutrophils % (Manual) 96 H Lymphocytes % (Manual) 1 L Monocytes % (Manual) 3 Hypersegmented Polys Present Platelet Estimate Normal Anisocytosis (manual) Slight Macrocytosis (manual) Slight PT 16.2 H INR 1.5 APTT 39.9 H Sodium 129 L Potassium 4.0 Chloride 94 L Carbon Dioxide 27 Anion Gap 13 BUN 43 H Creatinine 4.0 H Est GFR ( Amer) 18 Est GFR (Non-Af Amer) 15 Random Glucose 178 H D Calcium 7.5 L Phosphorus 4.9 H Magnesium 2.4 H Total Bilirubin 0.8 AST 34 ALT 27 Alkaline Phosphatase 107 Total Protein 6.3 Albumin 2.5 L D Globulin 3.8 Albumin/Globulin Ratio 0.7 L Assessment & Plan - Assessment and Plan (Free Text) Plan: Pulmonary Hypertension of Unknown Etiology Right-sided Heart Failure Hypotension Denies any chest pain or previous cardiac history previous ECHO 05/12/2018: LV ~ 50%, Decreased R ventricle systolic function, dilated right ventricle (RVSP 64.25, was 38.04 on ECHO from 01/11/18) * repeat ECHO pending to re-assess pulmonary HTN Recommend CTA to r/o pulmonary embolism(s) due to acute change in right sided heart failure as seen on ECHOs from 01/11/18 to 05/12/18. BNP 34,900 (was >175,000 on 01/10/18) Continue current medical management PAD Foot Ulcers Wound Infection - MRSA+ Vascular surgery consulted * no indications for any vascular surgery intervention at this time. ID consulted Wound care consulted CT Angio Abd w ileofem runoff performed 08/24 with evidence of bilateral common femoral and superfical femoral artery disease with reconstitution distally, patent popliteal and below knee arteries. Wound cultures (09/09/18) for left and right foot ulcer + for MRSA Blood cultures (09/07/18) negative abx as per ID Ascities GI consulted Paracentsis negative for SBP Ascities likely 2/2 to right sided heart failure Afib continue eliquis ESRD on HD Nephrology consulted continue management as per nephrology Case discussed with Dr. Sarkis Chester PGY2 <Oz Dockery - Last Filed: 09/13/18 22:37> Meds - Medications Medications: Current Medications Acetaminophen (Tylenol 325mg Tab) 650 mg PO Q6 PRN PRN Reason: Pain, Mild (1-3) Last Admin: 09/12/18 18:36 Dose: 650 mg Apixaban (Eliquis) 2.5 mg PO BID [facility] Last Admin: 09/13/18 17:42 Dose: 2.5 mg Collagenase (Santyl) 1 gm TOP DAILY [facility] Last Admin: 09/13/18 14:22 Dose: 1 applic Dicyclomine HCl (Bentyl) 10 mg PO QID [facility] Last Admin: 09/13/18 21:08 Dose: 10 mg Famotidine (Pepcid) 20 mg PO DAILY [facility] Last Admin: 09/13/18 09:50 Dose: 20 mg Vancomycin/Sodium Chloride (Vancomycin 1 Gm/Ns 200 Ml) 1 gm in 200 mls @ 133 mls/hr IVPB MWF [facility]; Protocol Stop: 09/16/18 09:01 Last Admin: 09/13/18 14:02 Dose: 133 mls/hr Insulin Human Regular (Novolin R) 0 unit SC ACHS [facility]; Protocol Last Admin: 09/13/18 21:26 Dose: Not Given Lactulose (Enulose) 15 gm PO BID [facility] Last Admin: 09/13/18 17:42 Dose: 15 gm Methylprednisolone (Solu-Medrol) 20 mg IVP Q12 [facility] Last Admin: 09/13/18 21:09 Dose: 20 mg Rosuvastatin Calcium (Crestor) 5 mg PO HS [facility] Last Admin: 09/13/18 21:08 Dose: 5 mg Sevelamer Carbonate (Renvela) 800 mg PO TIDCC [facility] Last Admin: 09/13/18 17:41 Dose: 800 mg Tamsulosin HCl (Flomax) 0.4 mg PO DAILY [facility] Last Admin: 09/13/18 09:50 Dose: 0.4 mg Vitamin B Complex/Vit C/Folic Acid (Nephro-Amita) 1 tab PO DAILY [facility] Last Admin: 09/13/18 09:50 Dose: 1 tab Results - Vital Signs Recent Vital Signs: Last Vital Signs Temp 97.3 F L 09/13/18 20:00 Pulse 62 09/13/18 21:00 Resp 10 L 09/13/18 21:00 BP 131/65 09/13/18 20:34 Pulse Ox 100 09/13/18 21:00 - Labs Result Diagrams: 09/13/18 04:53 09/13/18 04:53 Labs: Laboratory Results - last 24 hr 09/13/18 09/13/18 09/13/18 04:53 04:53 04:53 WBC 7.6 RBC 2.81 L Hgb 9.4 L Hct 28.9 L MCV 103.0 H MCH 33.4 H MCHC 32.5 L RDW 17.6 H Plt Count 132 MPV 9.4 Neut % (Auto) 95.0 H Lymph % (Auto) 1.9 L [place] % (Auto) 2.8 Eos % (Auto) 0.1 Baso % (Auto) 0.2 Neut # (Auto) 7.2 H Lymph # (Auto) 0.1 L [place] # (Auto) 0.2 Eos # (Auto) 0.0 Baso # (Auto) 0.0 Neutrophils % (Manual) 96 H Lymphocytes % (Manual) 1 L Monocytes % (Manual) 3 Hypersegmented Polys Present Platelet Estimate Normal Anisocytosis (manual) Slight Macrocytosis (manual) Slight PT 16.2 H INR 1.5 APTT 39.9 H Sodium 129 L Potassium 4.0 Chloride 94 L Carbon Dioxide 27 Anion Gap 13 BUN 43 H Creatinine 4.0 H Est GFR ( Amer) 18 Est GFR (Non-Af Amer) 15 Random Glucose 178 H D Calcium 7.5 L Phosphorus 4.9 H Magnesium 2.4 H Total Bilirubin 0.8 AST 34 ALT 27 Alkaline Phosphatase 107 Total Protein 6.3 Albumin 2.5 L D Globulin 3.8 Albumin/Globulin Ratio 0.7 L Assessment & Plan - Assessment and Plan (Free Text) Plan: Patient seen, examined and evaluated personally by me. Plan of care d/w the medical imaging specialist and as documented
--- NOTE | 2018-09-13 11:36 | CP.PCM.PN ---
Subjective - Date & Time of Evaluation Date of Evaluation: 09/13/18 Time of Evaluation: 11:36 - Subjective Subjective: Podiatry Progress Note: Dr. Alfredo Cavanaugh 73 y/o male seen and evaluated at bedside this morning in the ICU for bilateral lower extremity ulcerations. Offloading boots in place to both extremities. He denies pain to the legs or feet at this time. Denies any recent F/N/V/C/SOB. Objective - Vital Signs/Intake and Output Vital Signs (last 24 hours): Temp Pulse Resp BP Pulse Ox 96.5 F L 68 16 91/51 L 100 09/13/18 10:36 09/13/18 11:20 09/13/18 11:20 09/13/18 11:20 09/13/18 10:36 Intake and Output: 09/13/18 09/13/18 06:59 18:59 Intake Total 50 350 Balance 50 350 - Medications Medications: Current Medications Acetaminophen (Tylenol 325mg Tab) 650 mg PO Q6 PRN PRN Reason: Pain, Mild (1-3) Last Admin: 09/12/18 18:36 Dose: 650 mg Apixaban (Eliquis) 2.5 mg PO BID [facility] Last Admin: 09/13/18 09:50 Dose: 2.5 mg Collagenase (Santyl) 1 gm TOP DAILY [facility] Last Admin: 09/12/18 09:30 Dose: 1 applic Dicyclomine HCl (Bentyl) 10 mg PO QID [facility] Last Admin: 09/13/18 09:50 Dose: 10 mg Famotidine (Pepcid) 20 mg PO DAILY [facility] Last Admin: 09/13/18 09:50 Dose: 20 mg Vancomycin/Sodium Chloride (Vancomycin 1 Gm/Ns 200 Ml) 1 gm in 200 mls @ 133 mls/hr IVPB MWF [facility]; Protocol Stop: 09/16/18 09:01 Last Admin: 09/11/18 09:29 Dose: 133 mls/hr Insulin Human Regular (Novolin R) 0 unit SC ACHS [facility]; Protocol Last Admin: 09/13/18 08:18 Dose: 2 units Lactulose (Enulose) 15 gm PO BID [facility] Last Admin: 09/13/18 09:51 Dose: 15 gm Methylprednisolone (Solu-Medrol) 20 mg IVP Q12 [facility] Last Admin: 05/15/19 09:51 Dose: 20 mg Rosuvastatin Calcium (Crestor) 5 mg PO HS [facility] Last Admin: 09/12/18 21:39 Dose: 5 mg Sevelamer Carbonate (Renvela) 800 mg PO TIDCC [facility] Last Admin: 09/13/18 08:37 Dose: 800 mg Tamsulosin HCl (Flomax) 0.4 mg PO DAILY [facility] Last Admin: 09/13/18 09:50 Dose: 0.4 mg Vitamin B Complex/Vit C/Folic Acid (Nephro-Amita) 1 tab PO DAILY [facility] Last Admin: 09/13/18 09:50 Dose: 1 tab - Labs Labs: 09/13/18 04:53 09/13/18 04:53 PT 16.2 SECONDS (9.7-12.2) H 09/13/18 04:53 INR 1.5 09/13/18 04:53 APTT 39.9 SECONDS (21-34) H 09/13/18 04:53 - Constitutional Appears: Well, Non-toxic, No Acute Distress - Extremities Exam Additional comments: Dressings to bilateral lower extremities in place- clean, dry and intact No strikethrough noted Pt able to wiggle toes without difficulty CFT delayed but present to digits Offloading boots in place to B/L lower extremities - Neurological Exam Neurological Exam: Alert, Awake, Oriented x3 - Psychiatric Exam Psychiatric exam: Normal Affect, Normal Mood Assessment and Plan - Assessment and Plan (Free Text) Assessment: 73 year old male patient with bilateral lower extremity ulcerations Plan: Patient seen and evaluated in ICU Discussed treatment plan with Dr. Mao Palacio/L foot x-rays: No evidence of acute displaced fracture nor dislocation. No definitive evidence of cortical destructive changes seen. Questionable surface ulceration medial aspect 1st digit with surrounding soft tissue swelling; rule out cellulitis. Consider follow-up MRI for further evaluation Wound sites flushed with saline and dressings to bilateral LE applied using Santyl, ABD, DSD Wound culture + for MRSA Continue IV abx as per ID recommendations Vascular consult, Dr. Macias B/L venous duplex: no evidence of DVT Abdominal angiogram (08/24): Right lower extremity: Scattered calcific and noncalcific plaque in the common femoral and superficial femoral arteries with area of focal severe stenosis due in the distal 1/3 segment of the superficial femoral artery. Patent popliteal artery and below-knee arteries. Left lower extremity: Scattered calcific and noncalcific plaque in the common femoral and superficial femoral arteries with short segment area of severe stenosis in the distal 1/3 segment. Patent popliteal artery. Moderate segment stenosis of the proximal posterior tibial artery, stable with distal reconstitution to the level of the ankle. Patent peroneal and anterior tibial arteries with scattered calcific plaque. FARRUKH/PVR (08/25): B/L Moderate infrapopliteal occlusive disease with medial arterial calcification No plans for surgical intervention from podiatry standpoint at this time Will continue with local wound care Podiatry will continue to follow patient while in house
--- NOTE | 2018-09-13 13:06 | RAD ---
Date of service: 09/13/2018 HISTORY: re-eval right sided pleural effusion COMPARISON: 09/07/2018. FINDINGS: LUNGS: Persistent consolidative changes both lower lobes right greater than. PLEURA: Right pleural effusion inseparable from adjacent consolidative change. CARDIOVASCULAR: No atherosclerotic calcification present Normal. OSSEOUS STRUCTURES: No significant abnormalities. VISUALIZED UPPER ABDOMEN: Normal. OTHER FINDINGS: None. IMPRESSION: Improved aeration right lower lobe. Redemonstration right pleural effusion.
--- NOTE | 2018-09-13 13:44 | CP.PCM.PN ---
Subjective - Date & Time of Evaluation Date of Evaluation: 09/13/18 Time of Evaluation: 13:41 - Subjective Subjective: on dialysis now UF 1200ml very lethargic s/p paracentesis 2 days ago BP remains low Objective - Vital Signs/Intake and Output Vital Signs (last 24 hours): Temp Pulse Resp BP Pulse Ox 97.6 F 75 16 115/60 100 09/13/18 12:00 09/13/18 13:13 09/13/18 13:25 09/13/18 13:25 09/13/18 13:13 Intake and Output: 09/13/18 09/13/18 06:59 18:59 Intake Total 50 350 Balance 50 350 - Medications Medications: Current Medications Acetaminophen (Tylenol 325mg Tab) 650 mg PO Q6 PRN PRN Reason: Pain, Mild (1-3) Last Admin: 09/12/18 18:36 Dose: 650 mg Apixaban (Eliquis) 2.5 mg PO BID [facility] Last Admin: 09/13/18 09:50 Dose: 2.5 mg Collagenase (Santyl) 1 gm TOP DAILY [facility] Last Admin: 09/12/18 09:30 Dose: 1 applic Dicyclomine HCl (Bentyl) 10 mg PO QID [facility] Last Admin: 09/13/18 09:50 Dose: 10 mg Famotidine (Pepcid) 20 mg PO DAILY [facility] Last Admin: 09/13/18 09:50 Dose: 20 mg Vancomycin/Sodium Chloride (Vancomycin 1 Gm/Ns 200 Ml) 1 gm in 200 mls @ 133 mls/hr IVPB MWF [facility]; Protocol Stop: 09/16/18 09:01 Last Admin: 09/11/18 09:29 Dose: 133 mls/hr Insulin Human Regular (Novolin R) 0 unit SC ACHS [facility]; Protocol Last Admin: 09/13/18 11:45 Dose: 2 units Lactulose (Enulose) 15 gm PO BID [facility] Last Admin: 09/13/18 09:51 Dose: 15 gm Methylprednisolone (Solu-Medrol) 20 mg IVP Q12 [facility] Last Admin: 09/13/18 09:51 Dose: 20 mg Rosuvastatin Calcium (Crestor) 5 mg PO HS [facility] Last Admin: 09/12/18 21:39 Dose: 5 mg Sevelamer Carbonate (Renvela) 800 mg PO TIDCC [facility] Last Admin: 09/13/18 12:30 Dose: Not Given Tamsulosin HCl (Flomax) 0.4 mg PO DAILY [facility] Last Admin: 09/13/18 09:50 Dose: 0.4 mg Vitamin B Complex/Vit C/Folic Acid (Nephro-Amita) 1 tab PO DAILY [facility] Last Admin: 09/13/18 09:50 Dose: 1 tab - Labs Labs: 09/13/18 04:53 09/13/18 04:53 PT 16.2 SECONDS (9.7-12.2) H 09/13/18 04:53 INR 1.5 09/13/18 04:53 APTT 39.9 SECONDS (21-34) H 09/13/18 04:53 - Constitutional Appears: No Acute Distress, Chronically Ill - Head Exam Head Exam: ATRAUMATIC, NORMAL INSPECTION - Eye Exam Eye Exam: EOMI, Normal appearance - Neck Exam Neck Exam: Normal Inspection. absent: Tenderness - Respiratory Exam Respiratory Exam: Rhonchi, NORMAL BREATHING PATTERN - Cardiovascular Exam Cardiovascular Exam: REGULAR RHYTHM, +S1 - GI/Abdominal Exam GI & Abdominal Exam: Soft. absent: Tenderness - Extremities Exam Extremities Exam: Normal Inspection. absent: Tenderness - Neurological Exam Neurological Exam: Awake, CN II-XII Intact - Skin Skin Exam: Dry, Warm Assessment and Plan (1) Atrial fibrillation Status: Acute (2) CHF (congestive heart failure) Status: Acute (3) Cardiomyopathy Status: Acute (4) Cellulitis of left lower leg Status: Acute (5) Confusion Status: Acute (6) Foot osteomyelitis Status: Acute (7) PAD (peripheral artery disease) Status: Acute (8) ESRD (end stage renal disease) on dialysis Status: Chronic - Assessment and Plan (Free Text) Plan: try to UF as much as possible monitor BP closely rx cellulitis surgical follow up gangrene monitor mental status
[2018-09-13] MEDS: Vancomycin 1 gm/NS 200 ml 1 GM/200 ML BAG IVPB SCH (14:02)
[2018-09-13] MEDS: Collagenase 250 Units/gm Ointment(30 gm) TOP SCH (14:22)
--- NOTE | 2018-09-13 21:49 | CP.PCM.PN ---
Subjective - Date & Time of Evaluation Date of Evaluation: 09/13/18 Time of Evaluation: 09:00 - Subjective Subjective: SEEN ON ROUNDS IV RX IN PROGRESS Objective - Vital Signs/Intake and Output Vital Signs (last 24 hours): Temp Pulse Resp BP Pulse Ox 97.4 F L 72 11 L 110/62 100 09/13/18 16:00 09/13/18 16:00 09/13/18 16:00 09/13/18 15:51 09/13/18 16:00 Intake and Output: 09/13/18 09/13/18 06:59 18:59 Intake Total 50 600 Balance 50 600 - Medications Medications: Current Medications Acetaminophen (Tylenol 325mg Tab) 650 mg PO Q6 PRN PRN Reason: Pain, Mild (1-3) Last Admin: 09/12/18 18:36 Dose: 650 mg Apixaban (Eliquis) 2.5 mg PO BID [facility] Last Admin: 09/13/18 09:50 Dose: 2.5 mg Collagenase (Santyl) 1 gm TOP DAILY [facility] Last Admin: 09/13/18 14:22 Dose: 1 applic Dicyclomine HCl (Bentyl) 10 mg PO QID [facility] Last Admin: 09/13/18 14:02 Dose: 10 mg Famotidine (Pepcid) 20 mg PO DAILY [facility] Last Admin: 09/13/18 09:50 Dose: 20 mg Vancomycin/Sodium Chloride (Vancomycin 1 Gm/Ns 200 Ml) 1 gm in 200 mls @ 133 mls/hr IVPB MWF [facility]; Protocol Stop: 09/16/18 09:01 Last Admin: 09/13/18 14:02 Dose: 133 mls/hr Insulin Human Regular (Novolin R) 0 unit SC ACHS [facility]; Protocol Last Admin: 09/13/18 16:34 Dose: 2 units Lactulose (Enulose) 15 gm PO BID [facility] Last Admin: 09/13/18 09:51 Dose: 15 gm Methylprednisolone (Solu-Medrol) 20 mg IVP Q12 [facility] Last Admin: 09/13/18 09:51 Dose: 20 mg Rosuvastatin Calcium (Crestor) 5 mg PO HS [facility] Last Admin: 09/12/18 21:39 Dose: 5 mg Sevelamer Carbonate (Renvela) 800 mg PO TIDCC [facility] Last Admin: 09/13/18 12:30 Dose: Not Given Tamsulosin HCl (Flomax) 0.4 mg PO DAILY [facility] Last Admin: 09/13/18 09:50 Dose: 0.4 mg Vitamin B Complex/Vit C/Folic Acid (Nephro-Amita) 1 tab PO DAILY [facility] Last Admin: 09/13/18 09:50 Dose: 1 tab - Labs Labs: 09/13/18 04:53 09/13/18 04:53 PT 16.2 SECONDS (9.7-12.2) H 09/13/18 04:53 INR 1.5 09/13/18 04:53 APTT 39.9 SECONDS (21-34) H 09/13/18 04:53 - Constitutional Appears: Non-toxic, Chronically Ill - Head Exam Head Exam: absent: ATRAUMATIC, NORMAL INSPECTION, NORMOCEPHALIC - Eye Exam Eye Exam: absent: Scleral icterus - ENT Exam ENT Exam: Mucous Membranes Dry - Neck Exam Neck Exam: absent: Lymphadenopathy - Respiratory Exam Respiratory Exam: Decreased Breath Sounds - Cardiovascular Exam Cardiovascular Exam: REGULAR RHYTHM, +S1, +S2 - GI/Abdominal Exam GI & Abdominal Exam: Distended, Soft (x) - Rectal Exam Rectal Exam: Deferred - Exam Exam: absent: NORMAL INSPECTION - Extremities Exam Extremities Exam: absent: Tenderness - Back Exam Back Exam: absent: CVA tenderness (L), CVA tenderness (R) - Neurological Exam Neurological Exam: Alert, Awake, CN II-XII Intact - Psychiatric Exam Psychiatric exam: Depressed - Skin Skin Exam: Dry Additional comments: multiple dry ulcers on digits of feet R>L Assessment and Plan (1) Anemia Status: Acute (2) Atrial fibrillation Status: Acute (3) Bilateral lower leg cellulitis Status: Acute (4) CHF (congestive heart failure) Status: Acute (5) Cardiomyopathy Status: Acute (6) Cellulitis and abscess of left leg Status: Acute - Assessment and Plan (Free Text) Assessment: 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
--- NOTE | 2018-09-14 06:49 | CP.PCM.PN ---
Subjective - Date & Time of Evaluation Date of Evaluation: 09/14/18 Time of Evaluation: 06:49 - Subjective Subjective: Progress note for Dr. Carpenter Patient was seen and examined at bedside in no acute distress. Patient denies any complaints today, denies chest pain, palpitations, dyspnea, cough, n/v, fevers, headaches, abdominal pain, leg pain and swelling. No acute events overnight. Objective - Vital Signs/Intake and Output Vital Signs (last 24 hours): Temp Pulse Resp BP Pulse Ox 97.2 F L 73 20 136/71 100 09/13/18 23:00 09/13/18 23:00 09/13/18 23:00 09/13/18 23:00 09/13/18 23:00 Intake and Output: 09/13/18 09/14/18 18:59 06:59 Intake Total 925 50 Output Total 0 Balance 925 50 - Medications Medications: Current Medications Acetaminophen (Tylenol 325mg Tab) 650 mg PO Q6 PRN PRN Reason: Pain, Mild (1-3) Last Admin: 09/12/18 18:36 Dose: 650 mg Apixaban (Eliquis) 2.5 mg PO BID [facility] Last Admin: 09/13/18 17:42 Dose: 2.5 mg Collagenase (Santyl) 1 gm TOP DAILY [facility] Last Admin: 09/13/18 14:22 Dose: 1 applic Dicyclomine HCl (Bentyl) 10 mg PO QID [facility] Last Admin: 09/13/18 21:08 Dose: 10 mg Famotidine (Pepcid) 20 mg PO DAILY [facility] Last Admin: 09/13/18 09:50 Dose: 20 mg Vancomycin/Sodium Chloride (Vancomycin 1 Gm/Ns 200 Ml) 1 gm in 200 mls @ 133 mls/hr IVPB MWF [facility]; Protocol Stop: 09/16/18 09:01 Last Admin: 09/13/18 14:02 Dose: 133 mls/hr Insulin Human Regular (Novolin R) 0 unit SC ACHS [facility]; Protocol Last Admin: 09/13/18 21:26 Dose: Not Given Lactulose (Enulose) 15 gm PO BID [facility] Last Admin: 09/13/18 17:42 Dose: 15 gm Methylprednisolone (Solu-Medrol) 20 mg IVP Q12 [facility] Last Admin: 09/13/18 21:09 Dose: 20 mg Rosuvastatin Calcium (Crestor) 5 mg PO HS [facility] Last Admin: 09/13/18 21:08 Dose: 5 mg Sevelamer Carbonate (Renvela) 800 mg PO TIDCC [facility] Last Admin: 09/13/18 17:41 Dose: 800 mg Tamsulosin HCl (Flomax) 0.4 mg PO DAILY [facility] Last Admin: 09/13/18 09:50 Dose: 0.4 mg Vitamin B Complex/Vit C/Folic Acid (Nephro-Amita) 1 tab PO DAILY [facility] Last Admin: 09/13/18 09:50 Dose: 1 tab - Labs Labs: 09/13/18 04:53 09/13/18 04:53 PT 16.2 SECONDS (9.7-12.2) H 09/13/18 04:53 INR 1.5 09/13/18 04:53 APTT 39.9 SECONDS (21-34) H 09/13/18 04:53 - Constitutional Appears: No Acute Distress, Cachectic, Chronically Ill - Head Exam Head Exam: absent: NORMAL INSPECTION (extensive bruising across face s/p fall) - Eye Exam Eye Exam: EOMI - ENT Exam ENT Exam: Mucous Membranes Moist - Respiratory Exam Respiratory Exam: Decreased Breath Sounds, NORMAL BREATHING PATTERN. absent: Rhonchi, Wheezes, Respiratory Distress - Cardiovascular Exam Cardiovascular Exam: Irregular Rhythm, +S1, +S2 - GI/Abdominal Exam GI & Abdominal Exam: Distended, Soft, Normal Bowel Sounds. absent: Firm, Tenderness - Extremities Exam Extremities Exam: absent: Pedal Edema, Tenderness - Neurological Exam Neurological Exam: Alert, Awake, Oriented x3 - Psychiatric Exam Psychiatric exam: Normal Mood - Skin Skin Exam: Dry, Warm Assessment and Plan - Assessment and Plan (Free Text) Plan: 73 year old male with a past medical history of PAD, CHF, pulmonary hypertension, ESRD on HD, Atrial fibrillation (on Apixaban), hyperlipidemia, analilia betes, foot ulcers, was transferred to [facility] from a senior care due to hypotension. Hypotension Pulmonary Hypertension Right-sided Heart Failure - Hypotension improved; stable - Patient transferred out of ICU on 09/13/18 - Cardiology consulted, Dr. Dockery; help appreciated * Recommended repeat Echo and CTA to r/o pulmonary embolism(s) due to acute change in right sided heart failure as seen on ECHOs from 01/11/18 to 05/12/18 - BNP 34,900 (was >175,000 on 01/10/18) - Imaging: * previous ECHO 05/12/2018: LV ~ 50%, Decreased R ventricle systolic function, dilated right ventricle (RVSP 64.25, was 38.04 on ECHO from 01/11/18) * repeat ECHO pending to re-assess pulmonary HTN: f/u * CTA to r/o PE: f/u Ascites - GI consulted, help appreciated - Diagnostic paracentesis- negative for SBP - s/p therapeutic paracentesis with IR on 09/11/18 - Ascites likely 2/2 to right sided heart failure PAD - Multiple foot Ulcers - Wound cultures (09/09/18) for left and right foot ulcer + for MRSA - Blood cultures (09/07/18) negative - Vascular surgery consulted * no indications for any vascular surgery intervention at this time. - ID consulted, Dr. Bailey; help appreciated - Wound care consulted - Imaging: * CT Angio Abd w ileofem runoff performed 08/24 with evidence of bilateral common femoral and superficial femoral artery disease with reconstitution distally, patent popliteal and below knee arteries. Afib - Continue Eliquis 2.5mg PO BID [facility] - Accuchecks, hypoglycemic protocol - ISS ESRD on HD - Nephrology consulted, Dr. Lopes, help appreciated - Continue management as per nephrology - Patient scheduled for HD post CTA on 09/15/18 Case/Plan discussed with Dr. Jayden Disla, PGY2
--- NOTE | 2018-09-14 07:20 | CP.PCM.PN ---
<Albert Chester - Last Filed: 09/14/18 18:25> Subjective - Date & Time of Evaluation Date of Evaluation: 09/14/18 Time of Evaluation: 07:20 - Subjective Subjective: PGY2 Cardiology Note for Dr. Dockery Patient seen and examined this morning at bedside. Patient was downgraded from ICU to Med-Surg yesterday. He is resting comfortably in bed without any complaints. Denies fevers, chills, nausea, vomiting, shortness of breath, chest pain, lightheadedness or dizziness Objective - Vital Signs/Intake and Output Vital Signs (last 24 hours): Temp Pulse Resp BP Pulse Ox 97.2 F L 73 20 136/71 100 09/13/18 23:00 09/13/18 23:00 09/13/18 23:00 09/13/18 23:00 09/13/18 23:00 Intake and Output: 09/14/18 09/14/18 06:59 18:59 Intake Total 50 Output Total 0 Balance 50 - Medications Medications: Current Medications Acetaminophen (Tylenol 325mg Tab) 650 mg PO Q6 PRN PRN Reason: Pain, Mild (1-3) Last Admin: 09/12/18 18:36 Dose: 650 mg Apixaban (Eliquis) 2.5 mg PO BID [facility] Last Admin: 09/13/18 17:42 Dose: 2.5 mg Collagenase (Santyl) 1 gm TOP DAILY [facility] Last Admin: 09/13/18 14:22 Dose: 1 applic Dicyclomine HCl (Bentyl) 10 mg PO QID [facility] Last Admin: 09/13/18 21:08 Dose: 10 mg Famotidine (Pepcid) 20 mg PO DAILY [facility] Last Admin: 09/13/18 09:50 Dose: 20 mg Vancomycin/Sodium Chloride (Vancomycin 1 Gm/Ns 200 Ml) 1 gm in 200 mls @ 133 mls/hr IVPB F [facility]; Protocol Stop: 09/16/18 09:01 Last Admin: 09/13/18 14:02 Dose: 133 mls/hr Insulin Human Regular (Novolin R) 0 unit SC [facility]; Protocol Last Admin: 09/13/18 21:26 Dose: Not Given Lactulose (Enulose) 15 gm PO BID [facility] Last Admin: 09/13/18 17:42 Dose: 15 gm Methylprednisolone (Solu-Medrol) 20 mg IVP Q12 [facility] Last Admin: 09/13/18 21:09 Dose: 20 mg Rosuvastatin Calcium (Crestor) 5 mg PO HS [facility] Last Admin: 09/13/18 21:08 Dose: 5 mg Sevelamer Carbonate (Renvela) 800 mg PO TIDCC [facility] Last Admin: 09/13/18 17:41 Dose: 800 mg Tamsulosin HCl (Flomax) 0.4 mg PO DAILY [facility] Last Admin: 09/13/18 09:50 Dose: 0.4 mg Vitamin B Complex/Vit C/Folic Acid (Nephro-Amita) 1 tab PO DAILY [facility] Last Admin: 09/13/18 09:50 Dose: 1 tab - Labs Labs: 09/13/18 04:53 09/13/18 04:53 PT 16.2 SECONDS (9.7-12.2) H 09/13/18 04:53 INR 1.5 09/13/18 04:53 APTT 39.9 SECONDS (21-34) H 09/13/18 04:53 - Additional Findings Additional findings: - Constitutional Appears: Cachectic, Chronically Ill - Head Exam Additional comments: ecchymosis across entire face - Eye Exam Eye Exam: EOMI - ENT Exam ENT Exam: Mucous Membranes Moist - Neck Exam Neck exam: Negative for: Lymphadenopathy, Tenderness - Respiratory Exam Respiratory Exam: Decreased Breath Sounds, NORMAL BREATHING PATTERN. absent: Accessory Muscle Use, Rales, Rhonchi, Wheezes, Respiratory Distress - Cardiovascular Exam Cardiovascular Exam: REGULAR RHYTHM, +S1, +S2 - GI/Abdominal Exam GI & Abdominal Exam: Soft. absent: Distended, Firm, Guarding, Rigid, Tenderness - Extremities Exam Extremities exam: Positive for: tenderness. Negative for: calf tenderness, pedal edema Additional comments: pressure ulcer boots in place b/l AV fistula on right arm - Neurological Exam Neurological exam: Alert, Oriented x3 - Psychiatric Exam Psychiatric exam: Normal Affect, Normal Mood - Skin Skin Exam: Dry, Warm Assessment and Plan - Assessment and Plan (Free Text) Plan: Pulmonary Hypertension of Unknown Etiology Right-sided Heart Failure Hypotension Denies any chest pain or previous cardiac history previous ECHO 05/12/2018: LV ~ 50%, Decreased R ventricle systolic function, dilated right ventricle (RVSP 64.25, was 38.04 on ECHO from 9/12/18) * repeat ECHO pending to re-assess pulmonary HTN Recommend CTA to r/o pulmonary embolism(s) due to acute change in right sided heart failure as seen on ECHOs from 01/11/18 to 05/12/18. BNP 34,900 (was >175,000 on 01/10/18) Continue current medical management PAD Foot Ulcers Wound Infection - MRSA+ Vascular surgery consulted * no indications for any vascular surgery intervention at this time. ID consulted Wound care consulted CT Angio Abd w ileofem runoff performed 08/24 with evidence of bilateral common femoral and superfical femoral artery disease with reconstitution distally, patent popliteal and below knee arteries. Wound cultures (09/09/18) for left and right foot ulcer + for MRSA Blood cultures (09/07/18) negative abx as per ID Ascities GI consulted Paracentsis negative for SBP Ascities likely 2/2 to right sided heart failure Afib continue eliquis ESRD on HD Nephrology consulted continue management as per nephrology Case discussed with Dr. Sarkis Chester PGY2 <Oz Dockery - Last Filed: 09/15/18 18:54> Subjective - Subjective Subjective: Patient seen examined and evaluated personally by me. Plan of acre d/w the biomedical technician and as documented Objective - Vital Signs/Intake and Output Vital Signs (last 24 hours): Temp Pulse Resp BP Pulse Ox 97.8 F 78 16 113/58 L 97 09/15/18 17:10 09/15/18 17:10 09/15/18 17:10 09/15/18 17:10 09/15/18 17:10 - Medications Medications: Current Medications Acetaminophen (Tylenol 325mg Tab) 650 mg PO Q6 PRN PRN Reason: Pain, Mild (1-3) Last Admin: 09/12/18 18:36 Dose: 650 mg Collagenase (Santyl) 1 gm TOP DAILY [facility] Last Admin: 09/15/18 09:16 Dose: 1 applic Dicyclomine HCl (Bentyl) 10 mg PO QID [facility] Last Admin: 09/15/18 13:05 Dose: 10 mg Famotidine (Pepcid) 20 mg PO DAILY [facility] Last Admin: 09/15/18 09:10 Dose: 20 mg Vancomycin/Sodium Chloride (Vancomycin 1 Gm/Ns 200 Ml) 1 gm in 200 mls @ 133 mls/hr IVPB [facility]; Protocol Stop: 09/16/18 09:01 Last Admin: 09/15/18 09:03 Dose: 133 mls/hr Insulin Human Regular (Novolin R) 0 unit SC ACHS [facility]; Protocol Last Admin: 09/15/18 16:30 Dose: Not Given Pantoprazole Sodium (Protonix Inj) 40 mg IVP Q12 [facility] Last Admin: 09/15/18 11:43 Dose: 40 mg Rosuvastatin Calcium (Crestor) 5 mg PO HS [facility] Last Admin: 09/14/18 21:03 Dose: 5 mg Sevelamer Carbonate (Renvela) 800 mg PO TIDCC [facility] Last Admin: 09/15/18 13:01 Dose: 800 mg Tamsulosin HCl (Flomax) 0.4 mg PO DAILY [facility] Last Admin: 09/15/18 09:10 Dose: 0.4 mg Vitamin B Complex/Vit C/Folic Acid (Nephro-Amita) 1 tab PO DAILY [facility] Last Admin: 09/15/18 09:09 Dose: 1 tab - Labs Labs: 09/15/18 12:10 09/15/18 08:24 PT 16.2 SECONDS (9.7-12.2) H 09/13/18 04:53 INR 1.5 09/13/18 04:53 APTT 39.9 SECONDS (21-34) H 09/13/18 04:53
[2018-09-14] MEDS: (Novolin R) Insulin Human Regular 100 units/ml vial SC SCH ×4 (08:30→21:04)
[2018-09-14] MEDS: Collagenase 250 Units/gm Ointment(30 gm) TOP SCH (09:43)
[2018-09-14] MEDS: MethylPREDNISolone 40 mg Vial IVP SCH ×2 (09:56→21:02)
[2018-09-14] MEDS: Multivitamin Vitamin B Complex (Nephro-Vite) Tab PO SCH (09:57)
--- NOTE | 2018-09-14 09:59 | CP.PCM.PN ---
Subjective - Date & Time of Evaluation Date of Evaluation: 09/14/18 Time of Evaluation: 09:56 - Subjective Subjective: more alert eating better BP stable needs CTA - r/o PE as per cardio Objective - Vital Signs/Intake and Output Vital Signs (last 24 hours): Temp Pulse Resp BP Pulse Ox 97.3 F L 71 18 120/66 95 09/14/18 07:54 09/14/18 07:54 09/14/18 07:54 09/14/18 07:54 09/14/18 07:54 Intake and Output: 09/14/18 09/14/18 06:59 18:59 Intake Total 50 Output Total 0 Balance 50 - Medications Medications: Current Medications Acetaminophen (Tylenol 325mg Tab) 650 mg PO Q6 PRN PRN Reason: Pain, Mild (1-3) Last Admin: 09/12/18 18:36 Dose: 650 mg Apixaban (Eliquis) 2.5 mg PO BID [facility] Last Admin: 09/13/18 17:42 Dose: 2.5 mg Collagenase (Santyl) 1 gm TOP DAILY [facility] Last Admin: 09/14/18 09:43 Dose: Not Given Dicyclomine HCl (Bentyl) 10 mg PO QID [facility] Last Admin: 09/13/18 21:08 Dose: 10 mg Famotidine (Pepcid) 20 mg PO DAILY [facility] Last Admin: 09/13/18 09:50 Dose: 20 mg Vancomycin/Sodium Chloride (Vancomycin 1 Gm/Ns 200 Ml) 1 gm in 200 mls @ 133 mls/hr IVPB MWF [facility]; Protocol Stop: 09/16/18 09:01 Last Admin: 09/13/18 14:02 Dose: 133 mls/hr Insulin Human Regular (Novolin R) 0 unit SC ACHS [facility]; Protocol Last Admin: 09/14/18 08:30 Dose: 3 units Lactulose (Enulose) 15 gm PO BID [facility] Last Admin: 09/13/18 17:42 Dose: 15 gm Methylprednisolone (Solu-Medrol) 20 mg IVP Q12 [facility] Last Admin: 09/13/18 21:09 Dose: 20 mg Rosuvastatin Calcium (Crestor) 5 mg PO HS [facility] Last Admin: 09/13/18 21:08 Dose: 5 mg Sevelamer Carbonate (Renvela) 800 mg PO TIDCC [facility] Last Admin: 09/14/18 08:30 Dose: 800 mg Tamsulosin HCl (Flomax) 0.4 mg PO DAILY [facility] Last Admin: 09/13/18 09:50 Dose: 0.4 mg Vitamin B Complex/Vit C/Folic Acid (Nephro-Amita) 1 tab PO DAILY [facility] Last Admin: 09/13/18 09:50 Dose: 1 tab - Labs Labs: 09/13/18 04:53 09/13/18 04:53 PT 16.2 SECONDS (9.7-12.2) H 09/13/18 04:53 INR 1.5 09/13/18 04:53 APTT 39.9 SECONDS (21-34) H 09/13/18 04:53 - Constitutional Appears: No Acute Distress, Chronically Ill - Head Exam Head Exam: ATRAUMATIC, NORMAL INSPECTION - Eye Exam Eye Exam: EOMI, Normal appearance - Neck Exam Neck Exam: Normal Inspection. absent: Tenderness - Respiratory Exam Respiratory Exam: Clear to Ausculation Bilateral, NORMAL BREATHING PATTERN - Cardiovascular Exam Cardiovascular Exam: Irregular Rhythm, +S1 - GI/Abdominal Exam GI & Abdominal Exam: Soft. absent: Tenderness - Extremities Exam Extremities Exam: Normal Inspection. absent: Tenderness - Neurological Exam Neurological Exam: Awake, CN II-XII Intact - Skin Skin Exam: Dry, Warm Assessment and Plan (1) Atrial fibrillation Status: Acute (2) CHF (congestive heart failure) Status: Acute (3) Cardiomyopathy Status: Acute (4) Cellulitis of left lower leg Status: Acute (5) Confusion Status: Acute (6) Foot osteomyelitis Status: Acute (7) PAD (peripheral artery disease) Status: Acute (8) ESRD (end stage renal disease) on dialysis Status: Chronic - Assessment and Plan (Free Text) Plan: dialysis MWF adequate UF CTA in AM will do HD post CTA
[2018-09-14 11:20] LABS: BASO % 0.3 % (0.0-2.0); EOS % 0.1 % (0.0-4.0); HEMOGLOBIN 9.8 g/dL (12.0-18.0); LYMPH # 0.5 K/uL (1.0-4.3); LYMPH % 6.5 % (20.0-40.0); MEAN CELL VOLUME 103.3 fL (80.0-94.0); MEAN CORPUSCULAR HEMOGLOBIN 33.7 pg (27.0-31.0); MEAN CORPUSCULAR HGB CONC 32.7 g/dL (33.0-37.0); MEAN PLATELET VOLUME 9.5 fL (7.2-11.7); MONO # 0.5 K/uL (0.0-0.8); MONO % 6.4 % (0.0-10.0); NEUT # 6.9 K/uL (1.8-7.0); NEUT % 86.7 % (50.0-75.0); NRBC % 0.1 % (0.0-2.0); PLATELET COUNT 123 K/uL (130-400); RBC 2.89 Mil/uL (4.40-5.90); RED CELL DISTRIBUTION WIDTH 17.8 % (11.5-14.5); WHITE BLOOD COUNT 7.9 K/uL (4.8-10.8)
[2018-09-14 11:43] LABS: ALB/GLOB RATIO 0.7 (1.0-2.1); ALBUMIN 2.9 g/dL (3.5-5.0); ALT/SGPT < 6 U/L (21-72); AST/SGOT 77 U/L (17-59); BLOOD UREA NITROGEN 37 mg/dL (9-20); CALCIUM 7.2 mg/dl (8.6-10.4); GFR NON-AFRICAN AMERICAN 21
[2018-09-14 11:46] LABS: ANISOCYTOSIS SLIGHT; BANDS 1 % (0-2); EOSINOPHIL 1 % (0-4); LYMPHOCYTE 5 % (20-40); MONOCYTE 5 % (0-10); NEUTROPHIL 88 % (50-75); PLATELET ESTIMATE SLIGHTLY DECREASED (NORMAL); TOTAL CELLS COUNTED 100
--- NOTE | 2018-09-14 13:12 | CARD ---
APPROVED REPORT Date of service: 09/14/2018 EXAM: Two-dimensional and M-mode echocardiogram with Doppler and color Doppler. INDICATION Abnormal EKG/Arrhythmia Dizziness and Vertigo Atrial Fibrillation Pulmonary Hypertention Congestive Heart Failure RISK FACTORS Hypertension Hyperlipidemia Diabetes 2D DIMENSIONS IVSd1.3 (0.7-1.1cm)Aortic Root (2D)3.5 (2.0-3.7cm) LVDd4.0 (3.9-5.9cm)PWd1.1 (0.7-1.1cm) LA [id number] (18-58mL)LVDs3.0 (2.5-4.0cm) FS (%) 28.0 %LVEF (%)58.0 (>50%) LVEF (Vera's)67.96 %IVC0.00 cm M-Mode DIMENSIONS RVDd2.93 (2.1-3.2cm)Left Atrium (MM)4.56 (2.5-4.0cm) IVSd0.85 (0.7-1.1cm)Aortic Root3.45 (2.2-3.7cm) LVDd4.13 (4.0-5.6cm)Aortic Cusp Exc.1.56 (1.5-2.0cm) PWd0.98 (0.7-1.1cm)FS (%) 31 % LVDs2.86 (2.0-3.8cm)TAPSE10.63 cm LVEF (%)59 (>50%) Mitral Valve MV E Dcsgvhku69.4cm/sMV A Dpgosycf12.8cm/sE/A ratio4.3 TDI Lateral E' Peak V12.42cm/sMedial E' Peak V8.03cm/sE/Lateral E'6.9 E/Medial E'10.6 Tricuspid Valve TR Peak Tlgbwsig013yo/sTR Peak Gr.[id number] LEFT VENTRICLE The left ventricle is normal size. There is normal left ventricular wall thickness. The left ventricular function is normal. The left ventricular ejection fraction is within the normal range. There is a flattened septum consistent with right ventricle volume and pressure overload. No left ventricle thrombus noted on this study. There is no ventricular septal defect visualized. There is no left ventricular aneurysm. There is no mass noted in the left ventricle. RIGHT VENTRICLE The right ventricle is mildly to moderately dilated. There is normal right ventricular wall thickness. The right ventricular systolic function is normal. ATRIA The left atrium is mildly dilated. The right atrium is moderately dilated. The interatrial septum is intact with no evidence for an atrial septal defect. AORTIC VALVE The aortic valve is normal in structure and function. There is mild aortic regurgitation. There is no aortic valvular stenosis. There is no aortic valvular vegetation. MITRAL VALVE The mitral valve is normal in structure and function. There is no evidence of mitral valve prolapse. There is no mitral valve stenosis. Mitral regurgitation is mild. TRICUSPID VALVE The tricuspid valve is normal in structure and function. There is mild to moderate tricuspid regurgitation. Right ventricular systolic pressure is estimated at greater than 60 mmHg. There is moderate-severe pulmonary hypertension. There is no tricuspid valve prolapse or vegetation. There is no tricuspid valve stenosis. PULMONIC VALVE The pulmonary valve is normal in structure and function. There is no pulmonic valvular regurgitation. There is no pulmonic valvular stenosis. GREAT VESSELS The aortic root is normal in size. The ascending aorta is normal in size. The pulmonary artery is normal. Compressed from 'mass' in liver confirm with U/S of liver PERICARDIAL EFFUSION The pericardium appears normal. There is no pleural effusion. <Conclusion> The left ventricular function is normal. The left ventricular ejection fraction is within the normal range. The right ventricle is mildly to moderately dilated. There is a flattened septum consistent with right ventricle volume and pressure overload. The right atrium is moderately dilated. There is mild aortic regurgitation. There is mild to moderate tricuspid regurgitation. Right ventricular systolic pressure is estimated at greater than 60 mmHg. There is moderate-severe pulmonary hypertension. Compressed from 'mass' in liver confirm with U/S of liver
[2018-09-14 19:32] LABS: TOTAL PROTEIN PERITONEAL FLUID 5.1 g/dL
[2018-09-14 19:33] LABS: GLUCOSE PERITONEAL FLUID 258 mg/dL; LDH PERITONEAL FLUID 138 U/L (<63)
--- NOTE | 2018-09-14 20:52 | CP.PCM.PN ---
Subjective - Date & Time of Evaluation Date of Evaluation: 09/14/18 Time of Evaluation: 08:55 - Subjective Subjective: Podiatry Progress Note: Dr. Alfredo Cavanaugh 73 y/o male seen and evaluated at bedside for bilateral lower extremity ulcerations. Patient denies any pain to the lower extremities at the ulceration sites. Admits to feeling tired and lacking energy today. Offloading boots in place B/L. Denies having any overnight F/N/V/C/SOB. Objective - Vital Signs/Intake and Output Vital Signs (last 24 hours): Temp Pulse Resp BP Pulse Ox 98.1 F 73 18 119/62 97 09/14/18 15:31 09/14/18 15:31 09/14/18 15:31 09/14/18 15:31 09/14/18 15:31 - Medications Medications: Current Medications Acetaminophen (Tylenol 325mg Tab) 650 mg PO Q6 PRN PRN Reason: Pain, Mild (1-3) Last Admin: 09/12/18 18:36 Dose: 650 mg Apixaban (Eliquis) 2.5 mg PO BID [facility] Last Admin: 09/14/18 17:24 Dose: 2.5 mg Collagenase (Santyl) 1 gm TOP DAILY [facility] Last Admin: 09/14/18 09:43 Dose: Not Given Dicyclomine HCl (Bentyl) 10 mg PO QID [facility] Last Admin: 09/14/18 17:24 Dose: 10 mg Famotidine (Pepcid) 20 mg PO DAILY [facility] Last Admin: 09/14/18 09:57 Dose: 20 mg Vancomycin/Sodium Chloride (Vancomycin 1 Gm/Ns 200 Ml) 1 gm in 200 mls @ 133 mls/hr IVPB MWF [facility]; Protocol Stop: 09/16/18 09:01 Last Admin: 09/13/18 14:02 Dose: 133 mls/hr Insulin Human Regular (Novolin R) 0 unit SC ACHS [facility]; Protocol Last Admin: 09/14/18 17:23 Dose: 3 units Lactulose (Enulose) 15 gm PO BID [facility] Last Admin: 09/14/18 17:23 Dose: 15 gm Methylprednisolone (Solu-Medrol) 20 mg IVP Q12 [facility] Last Admin: 09/14/18 09:56 Dose: 20 mg Rosuvastatin Calcium (Crestor) 5 mg PO HS [facility] Last Admin: 09/13/18 21:08 Dose: 5 mg Sevelamer Carbonate (Renvela) 800 mg PO TIDCC [facility] Last Admin: 09/14/18 17:24 Dose: 800 mg Tamsulosin HCl (Flomax) 0.4 mg PO DAILY [facility] Last Admin: 09/14/18 09:57 Dose: 0.4 mg Vitamin B Complex/Vit C/Folic Acid (Nephro-Amita) 1 tab PO DAILY [facility] Last Admin: 09/14/18 09:57 Dose: 1 tab - Labs Labs: 09/14/18 11:12 09/14/18 11:12 PT 16.2 SECONDS (9.7-12.2) H 09/13/18 04:53 INR 1.5 09/13/18 04:53 APTT 39.9 SECONDS (21-34) H 09/13/18 04:53 - Constitutional Appears: Well, Non-toxic, No Acute Distress - Extremities Exam Additional comments: B/L Lower extremity focused exam: VASC: DP/PT pulses are non-palpable at this time B/L. Temperature gradient warm to warm B/L. CFT delayed > 3 sec to all digits on the left and approximately 3 sec to the right. NEURO: Protective sensation slightly diminished. DERM: RLE: Lateral mid leg ulceration measuring approximately 2.2cm x 0.9cm x 0.5cm extending down to the level of muscle tissue. No active drainage or purulence, no malodor, no fluctuance or jackson wound erythema. An ulcer noted on the medial aspect of the 1st MPJ covered with black eschar 2 cm in diameter with hyperkeratotic edge. Base is mixed fibronecrotic. No drainage, no malodor, no probe to bone, no undermining. Another nonstageable ulcer noted on the plantar heel measuring 5 cm X 4 cm covered with black eschar. No drainage, no malodor, no probe to bone, no undermining. LLE: An ulcer noted on the medial aspect of the 1st MPJ covered with black eschar measuring approximately 2 cm X 1 cm. Base is necrotic, with no drainage, no malodor, no probe to bone, no undermining or tunneling. Additional circular ulceration noted on the medial side of the hallux approximately 0.5 cm in diameter covered with black eschar. Base is necrotic, with no drainage, no malodor, no probe to bone, no undermining or tunneling. 2 ulcerations noted on the plantar aspect of the 4th and 5th MPJ measuring 2 cm x 1 cm x 0.1cm and 1.5 cm X 0.8 cm x 0.1cm covered with black eschar. Wound bases are necrotic, with no drainage, no malodor, no probe to bone, no undermining. Another non stageable ulcer noted on the plantar heel measuring 5.5 cm X 4.2 cm covered with black eschar. No drainage, Nno malodor, no probe to bone, no undermining. MSK: No tenderness to palpation of B/L lower extremity ulcerations. MMT 3/5 B/L to all groups - Neurological Exam Neurological Exam: Alert, Awake, Oriented x3 - Psychiatric Exam Psychiatric exam: Normal Affect, Normal Mood Assessment and Plan - Assessment and Plan (Free Text) Assessment: 73 year old male patient with chronic bilateral lower extremity ulcerations Plan: Patient seen and evaluated in ICU Discussed treatment plan with Dr. Cavanaugh B/L foot x-rays: No evidence of acute displaced fracture nor dislocation. No definitive evidence of cortical destructive changes seen. Questionable surface ulceration medial aspect 1st digit with surrounding soft tissue swelling; rule out cellulitis. Consider follow-up MRI for further evaluation Wound sites flushed with saline and dressings to bilateral LE applied using Santyl, ABD, DSD Wound culture + for MRSA Continue IV abx as per ID recommendations Vascular consult, Dr. Macias B/L venous duplex: no evidence of DVT Abdominal angiogram (08/24): Right lower extremity: Scattered calcific and noncalcific plaque in the common femoral and superficial femoral arteries with area of focal severe stenosis due in the distal 1/3 segment of the superficial femoral artery. Patent popliteal artery and below-knee arteries. Left lower extremity: Scattered calcific and noncalcific plaque in the common femoral and superficial femoral arteries with short segment area of severe stenosis in the distal 1/3 segment. Patent popliteal artery. Moderate segment stenosis of the proximal posterior tibial artery, stable with distal reconstitution to the level of the ankle. Patent peroneal and anterior tibial arteries with scattered calcific plaque. FARRUKH/PVR (08/25): B/L Moderate infrapopliteal occlusive disease with medial arterial calcification No plans for surgical intervention from podiatry standpoint at this time Will continue with local wound care Podiatry will continue to follow patient while in house
--- NOTE | 2018-09-14 23:00 | CP.PCM.PN ---
Subjective - Date & Time of Evaluation Date of Evaluation: 09/14/18 Time of Evaluation: 09:00 - Subjective Subjective: wounds appear stable MRSA on multiple admissions recommend rx for 6-8 weeks Objective - Vital Signs/Intake and Output Vital Signs (last 24 hours): Temp Pulse Resp BP Pulse Ox 98.1 F 73 18 119/62 97 09/14/18 15:31 09/14/18 15:31 09/14/18 15:31 09/14/18 15:31 09/14/18 15:31 Intake and Output: 09/14/18 09/14/18 06:59 18:59 Intake Total 50 Output Total 0 Balance 50 - Medications Medications: Current Medications Acetaminophen (Tylenol 325mg Tab) 650 mg PO Q6 PRN PRN Reason: Pain, Mild (1-3) Last Admin: 09/12/18 18:36 Dose: 650 mg Apixaban (Eliquis) 2.5 mg PO BID [facility] Last Admin: 09/14/18 17:24 Dose: 2.5 mg Collagenase (Santyl) 1 gm TOP DAILY [facility] Last Admin: 09/14/18 09:43 Dose: Not Given Dicyclomine HCl (Bentyl) 10 mg PO QID [facility] Last Admin: 09/14/18 17:24 Dose: 10 mg Famotidine (Pepcid) 20 mg PO DAILY [facility] Last Admin: 09/14/18 09:57 Dose: 20 mg Vancomycin/Sodium Chloride (Vancomycin 1 Gm/Ns 200 Ml) 1 gm in 200 mls @ 133 mls/hr IVPB MWF [facility]; Protocol Stop: 09/16/18 09:01 Last Admin: 09/13/18 14:02 Dose: 133 mls/hr Insulin Human Regular (Novolin R) 0 unit SC ACHS [facility]; Protocol Last Admin: 09/14/18 17:23 Dose: 3 units Lactulose (Enulose) 15 gm PO BID [facility] Last Admin: 09/14/18 17:23 Dose: 15 gm Methylprednisolone (Solu-Medrol) 20 mg IVP Q12 [facility] Last Admin: 09/14/18 09:56 Dose: 20 mg Rosuvastatin Calcium (Crestor) 5 mg PO HS [facility] Last Admin: 09/13/18 21:08 Dose: 5 mg Sevelamer Carbonate (Renvela) 800 mg PO TIDCC [facility] Last Admin: 09/14/18 17:24 Dose: 800 mg Tamsulosin HCl (Flomax) 0.4 mg PO DAILY [facility] Last Admin: 09/14/18 09:57 Dose: 0.4 mg Vitamin B Complex/Vit C/Folic Acid (Nephro-Amita) 1 tab PO DAILY [facility] Last Admin: 09/14/18 09:57 Dose: 1 tab - Labs Labs: 09/14/18 11:12 09/14/18 11:12 PT 16.2 SECONDS (9.7-12.2) H 09/13/18 04:53 INR 1.5 09/13/18 04:53 APTT 39.9 SECONDS (21-34) H 09/13/18 04:53 - Constitutional Appears: Well, Non-toxic, Chronically Ill - Head Exam Head Exam: NORMAL INSPECTION, NORMOCEPHALIC - Eye Exam Eye Exam: EOMI, Normal appearance, Periorbital swelling, Periorbital tenderness, PERRL Pupil Exam: NORMAL ACCOMODATION, PERRL - ENT Exam ENT Exam: Mucous Membranes Moist, Normal Exam - Neck Exam Neck Exam: Full ROM, Normal Inspection. absent: Lymphadenopathy - Respiratory Exam Respiratory Exam: Clear to Ausculation Bilateral, NORMAL BREATHING PATTERN - Cardiovascular Exam Cardiovascular Exam: REGULAR RHYTHM, +S1, +S2. absent: Murmur - GI/Abdominal Exam GI & Abdominal Exam: Soft, Normal Bowel Sounds. absent: Tenderness - Rectal Exam Rectal Exam: Deferred - Exam Exam: NORMAL INSPECTION - Extremities Exam Extremities Exam: Full ROM, Normal Capillary Refill, Normal Inspection. absent: Joint Swelling, Pedal Edema - Back Exam Back Exam: NORMAL INSPECTION - Neurological Exam Neurological Exam: Alert, Awake, CN II-XII Intact, Oriented x3. absent: Normal Gait - Psychiatric Exam Psychiatric exam: Depressed - Skin Skin Exam: Dry, Warm. absent: Normal Color Assessment and Plan (1) Anemia Status: Acute (2) Atrial fibrillation Status: Acute (3) Bilateral lower leg cellulitis Status: Acute (4) CHF (congestive heart failure) Status: Acute (5) Cellulitis and abscess of left leg Status: Acute (6) Cardiomyopathy Status: Acute - Assessment and Plan (Free Text) Assessment: would treat as OM for min 6-8 weeks
[2018-09-15] MEDS: (Novolin R) Insulin Human Regular 100 units/ml vial SC SCH ×4 (08:09→21:28)
[2018-09-15] MEDS ORDERED: Iodixanol 320 MG/ML 100 ML BOTTLE IV ONE (08:28)
[2018-09-15 08:44] LABS: BASO % 0.2 % (0.0-2.0); HEMOGLOBIN 9.7 g/dL (12.0-18.0); LYMPH # 0.4 K/uL (1.0-4.3); LYMPH % 4.9 % (20.0-40.0); MEAN CELL VOLUME 103.1 fL (80.0-94.0); MEAN CORPUSCULAR HEMOGLOBIN 33.6 pg (27.0-31.0); MEAN CORPUSCULAR HGB CONC 32.6 g/dL (33.0-37.0); MEAN PLATELET VOLUME 9.1 fL (7.2-11.7); MONO # 0.3 K/uL (0.0-0.8); MONO % 3.7 % (0.0-10.0); NEUT # 6.7 K/uL (1.8-7.0); NEUT % 91.2 % (50.0-75.0); NRBC % 0.1 % (0.0-2.0); PLATELET COUNT 130 K/uL (130-400); RBC 2.88 Mil/uL (4.40-5.90); RED CELL DISTRIBUTION WIDTH 17.6 % (11.5-14.5); WHITE BLOOD COUNT 7.3 K/uL (4.8-10.8)
[2018-09-15 08:52] LABS: ALB/GLOB RATIO 0.7 (1.0-2.1); ALBUMIN 2.4 g/dL (3.5-5.0); CALCIUM 7.1 mg/dl (8.6-10.4)
[2018-09-15] MEDS: Vancomycin 1 gm/NS 200 ml 1 GM/200 ML BAG IVPB SCH (09:03)
[2018-09-15] MEDS: Multivitamin Vitamin B Complex (Nephro-Vite) Tab PO SCH (09:09)
[2018-09-15] MEDS: Collagenase 250 Units/gm Ointment(30 gm) TOP SCH (09:16)
[2018-09-15] MEDS ORDERED: MethylPREDNISolone 40 mg Vial IVP ONE (10:00)
[2018-09-15 10:01] LABS: LYMPHOCYTE 4 % (20-40); MONOCYTE 4 % (0-10); NEUTROPHIL 92 % (50-75); PLATELET ESTIMATE NORMAL (NORMAL); TOTAL CELLS COUNTED 100
[2018-09-15 10:02] LABS: ANISOCYTOSIS SLIGHT; HYPOCHROMIC SLIGHT
--- NOTE | 2018-09-15 10:58 | CP.PCM.PN ---
Subjective - Date & Time of Evaluation Date of Evaluation: 09/15/18 Time of Evaluation: 10:55 - Subjective Subjective: Medicine Note for Dr. Carpenter's Service Patient was seen and examined at bedside. Patient reports BRBPR. Patient is on Eliquis for atrial fibrillation. Objective - Vital Signs/Intake and Output Vital Signs (last 24 hours): Temp Pulse Resp BP Pulse Ox 98.2 F 74 20 129/64 97 09/14/18 23:00 09/14/18 23:00 09/14/18 23:00 09/14/18 23:00 09/14/18 23:00 - Medications Medications: Current Medications Acetaminophen (Tylenol 325mg Tab) 650 mg PO Q6 PRN PRN Reason: Pain, Mild (1-3) Last Admin: 09/12/18 18:36 Dose: 650 mg Collagenase (Santyl) 1 gm TOP DAILY [facility] Last Admin: 09/15/18 09:16 Dose: 1 applic Dicyclomine HCl (Bentyl) 10 mg PO QID [facility] Last Admin: 09/15/18 09:10 Dose: 10 mg Famotidine (Pepcid) 20 mg PO DAILY [facility] Last Admin: 09/15/18 09:10 Dose: 20 mg Vancomycin/Sodium Chloride (Vancomycin 1 Gm/Ns 200 Ml) 1 gm in 200 mls @ 133 mls/hr IVPB MWF [facility]; Protocol Stop: 09/16/18 09:01 Last Admin: 09/15/18 09:03 Dose: 133 mls/hr Insulin Human Regular (Novolin R) 0 unit SC ACHS [facility]; Protocol Last Admin: 09/15/18 08:09 Dose: 4 units Pantoprazole Sodium (Protonix Inj) 40 mg IVP Q12 [facility] Rosuvastatin Calcium (Crestor) 5 mg PO HS [facility] Last Admin: 09/14/18 21:03 Dose: 5 mg Sevelamer Carbonate (Renvela) 800 mg PO TIDCC [facility] Last Admin: 09/15/18 08:09 Dose: 800 mg Tamsulosin HCl (Flomax) 0.4 mg PO DAILY [facility] Last Admin: 09/15/18 09:10 Dose: 0.4 mg Vitamin B Complex/Vit C/Folic Acid (Nephro-Amita) 1 tab PO DAILY [facility] Last Admin: 09/15/18 09:09 Dose: 1 tab - Labs Labs: 09/15/18 08:24 09/15/18 08:24 PT 16.2 SECONDS (9.7-12.2) H 09/13/18 04:53 INR 1.5 09/13/18 04:53 APTT 39.9 SECONDS (21-34) H 09/13/18 04:53 - Constitutional Appears: No Acute Distress - Head Exam Head Exam: NORMAL INSPECTION, NORMOCEPHALIC - Eye Exam Eye Exam: EOMI, Normal appearance, PERRL Pupil Exam: NORMAL ACCOMODATION - ENT Exam ENT Exam: Mucous Membranes Dry, Mucous Membranes Moist - Respiratory Exam Respiratory Exam: NORMAL BREATHING PATTERN. absent: Decreased Breath Sounds, Wheezes - Cardiovascular Exam Cardiovascular Exam: Irregular Rhythm, +S1, +S2 - GI/Abdominal Exam GI & Abdominal Exam: Soft, Normal Bowel Sounds. absent: Distended, Tenderness - Extremities Exam Extremities Exam: Normal Inspection. absent: Pedal Edema, Tenderness - Neurological Exam Neurological Exam: Alert, Awake, Oriented x3 - Psychiatric Exam Psychiatric exam: Normal Affect, Normal Mood - Skin Skin Exam: Dry, Intact, Normal Color, Warm Assessment and Plan - Assessment and Plan (Free Text) Plan: Bright Red Blood per Rectum -- GI consulted - Dr. Beltran - 1 episode 09/15/18 AM Management: - Eliquis stopped - Started Protonix 40mg IVP Q12 - Type and Screen, 2 PRBCs ordered, will transfuse if needed during dialysis (consent in chart) - CBC Q6Hs - Heparin to NOT be given during dialysis Pulmonary Hypertension Right-sided Heart Failure Hypotension - resolved - Hypotension improved; stable - Patient transferred out of ICU on 09/13/18 -- Cardiology consulted - Dr. Dockery * Recommended repeat Echo and CTA to r/o pulmonary embolism(s) due to acute change in right sided heart failure as seen on ECHOs from 01/11/18 to 05/12/18 - Imaging/Labs: * Previous ECHO 05/12/2018: LV ~ 50%, Decreased R ventricle systolic function, dilated right ventricle (RVSP 64.25, was 38.04 on ECHO from 01/11/18) * BNP 34,900 (was >175,000 on 01/10/18) * Repeat ECHO: RVSP 60mmg, RA moderately dilated, RV moderately dilated, moderate to severe PHTN * CTA to r/o PE: f/u Ascites - Diagnostic paracentesis- negative for SBP - s/p therapeutic paracentesis with IR on 09/11/18 - Ascites likely 2/2 to right sided heart failure PAD Multiple Foot Ulcers -- ID consulted, Dr. Bailey; help appreciated * Wound cultures (09/09/18) for left and right foot ulcer + for MRSA * Blood cultures (09/07/18) negative * Wound care consulted * Vancomycin 1gm MWF with dialysis, Santyl daily - Vascular surgery consulted * no indications for any vascular surgery intervention at this time. Imaging: * CT Angio Abd w ileofem runoff performed 08/24 with evidence of bilateral common femoral and superficial femoral artery disease with reconstitution distally, patent popliteal and below knee arteries. ESRD on HD - MWF - Nephrology consulted, Dr. Lopes, help appreciated - Continue management as per nephrology - Patient scheduled for HD post CTA on 09/15/18 Afib - Eliquis 2.5mg PO BID - HELD in light of rectal bleeding DM - Accuchecks, hypoglycemic protocol - ISS - Crestor 5mg PO QHS BPH - Flomax Prophylactic Measures - GI PPX: Protonix Q12 - DVT PPX: SCDs, VTE c/i - Patient is out of JOY days, when patient is discharged, it will be to home Disposition: Will monitor hemoglobin, transfuse as needed. Follow up GI reccomendations. Follow up Cardio reccs. Discussed with Dr. Carpenter, Lourdes Goldman DO, PGY2
--- NOTE | 2018-09-15 11:11 | CP.PCM.PN ---
Subjective - Date & Time of Evaluation Date of Evaluation: 09/15/18 Time of Evaluation: 11:09 - Subjective Subjective: s/p episode BPR alert, in NAD taken off eliquis has been eating better no SOB, CPs Objective - Vital Signs/Intake and Output Vital Signs (last 24 hours): Temp Pulse Resp BP Pulse Ox 98.2 F 74 20 129/64 97 09/14/18 23:00 09/14/18 23:00 09/14/18 23:00 09/14/18 23:00 09/14/18 23:00 - Medications Medications: Current Medications Acetaminophen (Tylenol 325mg Tab) 650 mg PO Q6 PRN PRN Reason: Pain, Mild (1-3) Last Admin: 09/12/18 18:36 Dose: 650 mg Collagenase (Santyl) 1 gm TOP DAILY [facility] Last Admin: 09/15/18 09:16 Dose: 1 applic Dicyclomine HCl (Bentyl) 10 mg PO QID [facility] Last Admin: 09/15/18 09:10 Dose: 10 mg Famotidine (Pepcid) 20 mg PO DAILY [facility] Last Admin: 09/15/18 09:10 Dose: 20 mg Vancomycin/Sodium Chloride (Vancomycin 1 Gm/Ns 200 Ml) 1 gm in 200 mls @ 133 mls/hr IVPB MWF [facility]; Protocol Stop: 09/16/18 09:01 Last Admin: 09/15/18 09:03 Dose: 133 mls/hr Insulin Human Regular (Novolin R) 0 unit SC ACHS [facility]; Protocol Last Admin: 09/15/18 08:09 Dose: 4 units Pantoprazole Sodium (Protonix Inj) 40 mg IVP Q12 [facility] Rosuvastatin Calcium (Crestor) 5 mg PO HS [facility] Last Admin: 09/14/18 21:03 Dose: 5 mg Sevelamer Carbonate (Renvela) 800 mg PO TIDCC [facility] Last Admin: 09/15/18 08:09 Dose: 800 mg Tamsulosin HCl (Flomax) 0.4 mg PO DAILY [facility] Last Admin: 09/15/18 09:10 Dose: 0.4 mg Vitamin B Complex/Vit C/Folic Acid (Nephro-Amita) 1 tab PO DAILY [facility] Last Admin: 09/15/18 09:09 Dose: 1 tab - Labs Labs: 09/15/18 08:24 09/15/18 08:24 PT 16.2 SECONDS (9.7-12.2) H 09/13/18 04:53 INR 1.5 09/13/18 04:53 APTT 39.9 SECONDS (21-34) H 09/13/18 04:53 - Constitutional Appears: No Acute Distress, Cachectic, Chronically Ill - Head Exam Head Exam: ATRAUMATIC, NORMAL INSPECTION - Eye Exam Eye Exam: EOMI, Normal appearance - Neck Exam Neck Exam: Normal Inspection. absent: Tenderness - Respiratory Exam Respiratory Exam: Clear to Ausculation Bilateral, NORMAL BREATHING PATTERN - Cardiovascular Exam Cardiovascular Exam: Irregular Rhythm, +S1 - GI/Abdominal Exam GI & Abdominal Exam: Soft. absent: Tenderness - Extremities Exam Extremities Exam: Calf Tenderness. absent: Tenderness - Neurological Exam Neurological Exam: Awake, CN II-XII Intact - Skin Skin Exam: Dry, Warm Assessment and Plan (1) Atrial fibrillation Status: Acute (2) CHF (congestive heart failure) Status: Acute (3) Cardiomyopathy Status: Acute (4) Cellulitis of left lower leg Status: Acute (5) Confusion Status: Acute (6) Foot osteomyelitis Status: Acute (7) PAD (peripheral artery disease) Status: Acute (8) ESRD (end stage renal disease) on dialysis Status: Chronic - Assessment and Plan (Free Text) Plan: recheck Hg stop anticoagulation dialysis today, then MWF transfuse if necessary
[2018-09-15 12:13] LABS: HEMOGLOBIN 10.1 g/dL (12.0-18.0); MEAN CELL VOLUME 104.1 fL (80.0-94.0); MEAN CORPUSCULAR HEMOGLOBIN 34.1 pg (27.0-31.0); MEAN CORPUSCULAR HGB CONC 32.8 g/dL (33.0-37.0); MEAN PLATELET VOLUME 9.7 fL (7.2-11.7); RBC 2.96 Mil/uL (4.40-5.90); RED CELL DISTRIBUTION WIDTH 17.4 % (11.5-14.5); WHITE BLOOD COUNT 7.8 K/uL (4.8-10.8)
--- NOTE | 2018-09-15 13:06 | CT ---
Date of service: 09/15/2018 PROCEDURE: CT Chest with contrast (Pulmonary Angiogram) HISTORY: r/o evaluate for pulmonary embolism COMPARISON: None available. TECHNIQUE: Axial computed tomography images were obtained of the chest in the pulmonary arterial phase of enhancement. Coronal and sagittal reformatted images were created and reviewed. Intravenous contrast dose: 100 ml Visipaque 320 Radiation dose: Total exam DLP = 455.67 mGy-cm. This CT exam was performed using one or more of the following dose reduction techniques: Automated exposure control, adjustment of the mA and/or kV according to patient size, and/or use of iterative reconstruction technique. FINDINGS: PULMONARY ARTERIES: There are no filling defects in the pulmonary arteries to suggest acute pulmonary embolism. AORTA: No acute findings. No thoracic aortic aneurysm. There are aortic atherosclerotic calcifications and mural plaque present. LUNGS: There is patchy ground-glass attenuation in the right upper lobe and compressive atelectasis of both lower lobes. No focal consolidation. There are no endobronchial lesions. PLEURAL SPACES: Large right and moderate left pleural effusions with compressive atelectasis of the lower lobes. No pneumothorax. HEART: No cardiomegaly. No significant pericardial effusion. LYMPH NODES: No pathologic mediastinal or hilar lymphadenopathy. BONES, CHEST WALL: Within normal limits for the patient's age. No fracture or destructive lesion OTHER FINDINGS: Large abdominal ascites IMPRESSION: No CTA evidence for acute pulmonary embolism. Large right and moderate left pleural effusions and compressive atelectasis of the lower lobe. Large abdominal ascites.
--- NOTE | 2018-09-15 14:53 | CP.PCM.PN ---
Subjective - Date & Time of Evaluation Date of Evaluation: 09/15/18 Time of Evaluation: 14:53 - Subjective Subjective: Podiatry Progress Note: Dr. Alfredo Cavanaugh 73 y/o male seen and evaluated at bedside today for bilateral lower extremity ulcerations with attending Dr. Alfredo Cavanaugh present. Pt currently wearing offloading boots on bilateral lower extremities. Patient denies any pain to the legs or feet at this time. States he is still experience stomach bloating and discomfort due to the fluid buildup. Denies any recent F/N/V/C/SOB. Objective - Vital Signs/Intake and Output Vital Signs (last 24 hours): Temp Pulse Resp BP Pulse Ox 98.2 F 74 20 129/64 97 09/14/18 23:00 09/14/18 23:00 09/14/18 23:00 09/14/18 23:00 09/14/18 23:00 - Medications Medications: Current Medications Acetaminophen (Tylenol 325mg Tab) 650 mg PO Q6 PRN PRN Reason: Pain, Mild (1-3) Last Admin: 09/12/18 18:36 Dose: 650 mg Collagenase (Santyl) 1 gm TOP DAILY [facility] Last Admin: 09/15/18 09:16 Dose: 1 applic Dicyclomine HCl (Bentyl) 10 mg PO QID [facility] Last Admin: 09/15/18 13:05 Dose: 10 mg Famotidine (Pepcid) 20 mg PO DAILY [facility] Last Admin: 09/15/18 09:10 Dose: 20 mg Vancomycin/Sodium Chloride (Vancomycin 1 Gm/Ns 200 Ml) 1 gm in 200 mls @ 133 mls/hr IVPB MWF [facility]; Protocol Stop: 09/16/18 09:01 Last Admin: 09/15/18 09:03 Dose: 133 mls/hr Insulin Human Regular (Novolin R) 0 unit SC ACHS [facility]; Protocol Last Admin: 09/15/18 12:45 Dose: 4 units Pantoprazole Sodium (Protonix Inj) 40 mg IVP Q12 [facility] Last Admin: 09/15/18 11:43 Dose: 40 mg Rosuvastatin Calcium (Crestor) 5 mg PO HS [facility] Last Admin: 09/14/18 21:03 Dose: 5 mg Sevelamer Carbonate (Renvela) 800 mg PO TIDCC [facility] Last Admin: 09/15/18 13:01 Dose: 800 mg Tamsulosin HCl (Flomax) 0.4 mg PO DAILY [facility] Last Admin: 09/15/18 09:10 Dose: 0.4 mg Vitamin B Complex/Vit C/Folic Acid (Nephro-Amita) 1 tab PO DAILY [facility] Last Admin: 09/15/18 09:09 Dose: 1 tab - Labs Labs: 09/15/18 12:10 09/15/18 08:24 PT 16.2 SECONDS (9.7-12.2) H 09/13/18 04:53 INR 1.5 09/13/18 04:53 APTT 39.9 SECONDS (21-34) H 09/13/18 04:53 - Constitutional Appears: Well, Non-toxic, No Acute Distress - Extremities Exam Additional comments: Dressings to bilateral lower extremities in place- clean, dry and intact No strikethrough noted Pt able to wiggle toes without difficulty CFT delayed but present to digits Offloading boots in place to B/L lower extremities - Neurological Exam Neurological Exam: Alert, Awake, Oriented x3 - Psychiatric Exam Psychiatric exam: Normal Affect, Normal Mood Assessment and Plan - Assessment and Plan (Free Text) Assessment: 73 year old male patient with bilateral chronic lower extremity ulcerations, stable Plan: Patient seen and evaluated with Dr. Cavanaugh B/L foot x-rays: No evidence of acute displaced fracture nor dislocation. No definitive evidence of cortical destructive changes seen. Questionable surface ulceration medial aspect 1st digit with surrounding soft tissue swelling; rule out cellulitis. Consider follow-up MRI for further evaluation Wound sites flushed with saline and dressings to bilateral LE applied using Santyl, ABD, DSD Wound culture + for MRSA Continue IV abx as per ID recommendations Vascular consult, Dr. Macias B/L venous duplex: no evidence of DVT Abdominal angiogram (08/24): Right lower extremity: Scattered calcific and noncalcific plaque in the common femoral and superficial femoral arteries with area of focal severe stenosis due in the distal 1/3 segment of the superficial femoral artery. Patent popliteal artery and below-knee arteries. Left lower extremity: Scattered calcific and noncalcific plaque in the common femoral and superficial femoral arteries with short segment area of severe stenosis in the distal 1/3 segment. Patent popliteal artery. Moderate segment stenosis of the proximal posterior tibial artery, stable with distal reconstitution to the level of the ankle. Patent peroneal and anterior tibial arteries with scattered calcific plaque. FARRUKH/PVR (08/25): B/L Moderate infrapopliteal occlusive disease with medial arterial calcification No plans for surgical intervention from podiatry standpoint at this time Will continue with local wound care Podiatry will continue to follow patient while in house
[2018-09-15] MEDS ORDERED: Albumin Human 25% (12.5 gm/50 ml) IV ONE (16:30)
--- NOTE | 2018-09-15 22:17 | CP.PCM.PN ---
Subjective - Date & Time of Evaluation Date of Evaluation: 09/15/18 Time of Evaluation: 08:00 - Subjective Subjective: awake alert bleeding noted off eliquis vanco renewed Objective - Vital Signs/Intake and Output Vital Signs (last 24 hours): Temp Pulse Resp BP Pulse Ox 97.6 F 72 17 105/59 L 97 09/15/18 14:10 09/15/18 14:10 09/15/18 14:05 09/15/18 16:40 09/14/18 23:00 - Medications Medications: Current Medications Acetaminophen (Tylenol 325mg Tab) 650 mg PO Q6 PRN PRN Reason: Pain, Mild (1-3) Last Admin: 09/12/18 18:36 Dose: 650 mg Collagenase (Santyl) 1 gm TOP DAILY [facility] Last Admin: 09/15/18 09:16 Dose: 1 applic Dicyclomine HCl (Bentyl) 10 mg PO QID [facility] Last Admin: 09/15/18 13:05 Dose: 10 mg Famotidine (Pepcid) 20 mg PO DAILY [facility] Last Admin: 09/15/18 09:10 Dose: 20 mg Vancomycin/Sodium Chloride (Vancomycin 1 Gm/Ns 200 Ml) 1 gm in 200 mls @ 133 mls/hr IVPB MWF [facility]; Protocol Stop: 09/16/18 09:01 Last Admin: 09/15/18 09:03 Dose: 133 mls/hr Insulin Human Regular (Novolin R) 0 unit SC ACHS [facility]; Protocol Last Admin: 09/15/18 12:45 Dose: 4 units Pantoprazole Sodium (Protonix Inj) 40 mg IVP Q12 [facility] Last Admin: 09/15/18 11:43 Dose: 40 mg Rosuvastatin Calcium (Crestor) 5 mg PO HS [facility] Last Admin: 09/14/18 21:03 Dose: 5 mg Sevelamer Carbonate (Renvela) 800 mg PO TIDCC [facility] Last Admin: 09/15/18 13:01 Dose: 800 mg Tamsulosin HCl (Flomax) 0.4 mg PO DAILY [facility] Last Admin: 09/15/18 09:10 Dose: 0.4 mg Vitamin B Complex/Vit C/Folic Acid (Nephro-Amita) 1 tab PO DAILY [facility] Last Admin: 09/15/18 09:09 Dose: 1 tab - Labs Labs: 09/15/18 12:10 09/15/18 08:24 PT 16.2 SECONDS (9.7-12.2) H 09/13/18 04:53 INR 1.5 09/13/18 04:53 APTT 39.9 SECONDS (21-34) H 09/13/18 04:53 - Constitutional Appears: Well, Non-toxic, Cachectic, Chronically Ill - Head Exam Head Exam: absent: ATRAUMATIC, NORMAL INSPECTION - Eye Exam Eye Exam: EOMI, Normal appearance, PERRL Pupil Exam: NORMAL ACCOMODATION, PERRL - ENT Exam ENT Exam: Mucous Membranes Moist, Normal Exam - Neck Exam Neck Exam: Full ROM, Normal Inspection. absent: Lymphadenopathy - Respiratory Exam Respiratory Exam: Clear to Ausculation Bilateral, NORMAL BREATHING PATTERN - Cardiovascular Exam Cardiovascular Exam: REGULAR RHYTHM, +S1, +S2. absent: Murmur - GI/Abdominal Exam GI & Abdominal Exam: Soft, Normal Bowel Sounds. absent: Tenderness - Rectal Exam Rectal Exam: Deferred - Exam Exam: NORMAL INSPECTION - Extremities Exam Extremities Exam: Full ROM, Normal Capillary Refill, Normal Inspection. absent: Joint Swelling, Pedal Edema - Back Exam Back Exam: NORMAL INSPECTION - Neurological Exam Neurological Exam: Alert, Awake, CN II-XII Intact, Normal Gait, Oriented x3 - Psychiatric Exam Psychiatric exam: Normal Affect, Normal Mood - Skin Skin Exam: Dry. absent: Intact, Normal Color Additional comments: multiple wounds on LE's mostly dry Assessment and Plan (1) Anemia Status: Acute (2) Atrial fibrillation Status: Acute (3) Bilateral lower leg cellulitis Status: Acute (4) CHF (congestive heart failure) Status: Acute (5) Cellulitis and abscess of left leg Status: Acute (6) Cardiomyopathy Status: Acute - Assessment and Plan (Free Text) Assessment: cont Vanco for 6-8 weeks with HD, wound care podiatry and vascular follow up
--- NOTE | 2018-09-15 23:08 | CP.PCM.PN ---
Subjective - Date & Time of Evaluation Date of Evaluation: 09/15/18 Time of Evaluation: 16:20 - Subjective Subjective: Patient seen and evaluated No cardiac events noted Objective - Additional Findings Additional findings: - Constitutional Appears: Cachectic, Chronically Ill - Head Exam Additional comments: ecchymosis across entire face - Eye Exam Eye Exam: EOMI - ENT Exam ENT Exam: Mucous Membranes Moist - Neck Exam Neck exam: Negative for: Lymphadenopathy, Tenderness - Respiratory Exam Respiratory Exam: Decreased Breath Sounds, NORMAL BREATHING PATTERN. absent: Accessory Muscle Use, Rales, Rhonchi, Wheezes, Respiratory Distress - Cardiovascular Exam Cardiovascular Exam: REGULAR RHYTHM, +S1, +S2 - GI/Abdominal Exam GI & Abdominal Exam: Soft. absent: Distended, Firm, Guarding, Rigid, Tenderness - Extremities Exam Extremities exam: Positive for: tenderness. Negative for: calf tenderness, pedal edema Additional comments: pressure ulcer boots in place b/l AV fistula on right arm - Neurological Exam Neurological exam: Alert, Oriented x3 - Psychiatric Exam Psychiatric exam: Normal Affect, Normal Mood - Skin Skin Exam: Dry, Warm Assessment and Plan - Assessment and Plan (Free Text) Plan: Pulmonary Hypertension of Unknown Etiology Right-sided Heart Failure Hypotension Denies any chest pain or previous cardiac history previous ECHO 05/12/2018: LV ~ 50%, Decreased R ventricle systolic function, dilated right ventricle (RVSP 64.25, was 38.04 on ECHO from 01/11/18) * repeat ECHO pending to re-assess pulmonary HTN Recommend CTA to r/o pulmonary embolism(s) due to acute change in right sided heart failure as seen on ECHOs from 01/11/18 to 05/12/18. BNP 34,900 (was >175,000 on 01/10/18) Continue current medical management PAD Foot Ulcers Wound Infection - MRSA+ Vascular surgery consulted * no indications for any vascular surgery intervention at this time. ID consulted Wound care consulted CT Angio Abd w ileofem runoff performed 08/24 with evidence of bilateral common femoral and superfical femoral artery disease with reconstitution distally, patent popliteal and below knee arteries. Wound cultures (09/09/18) for left and right foot ulcer + for MRSA Blood cultures (09/07/18) negative abx as per ID Ascities GI consulted Paracentsis negative for SBP Ascities likely 2/2 to right sided heart failure Afib continue eliquis ESRD on HD Nephrology consulted continue management as per nephrology Objective - Vital Signs/Intake and Output Vital Signs (last 24 hours): Temp Pulse Resp BP Pulse Ox 97.8 F 78 16 113/58 L 97 09/15/18 17:10 09/15/18 17:10 09/15/18 17:10 09/15/18 17:10 09/15/18 17:10 Intake and Output: 09/15/18 09/16/18 18:59 06:59 Intake Total 300 Balance 300 - Medications Medications: Current Medications Acetaminophen (Tylenol 325mg Tab) 650 mg PO Q6 PRN PRN Reason: Pain, Mild (1-3) Last Admin: 09/12/18 18:36 Dose: 650 mg Collagenase (Santyl) 1 gm TOP DAILY [facility] Last Admin: 09/15/18 09:16 Dose: 1 applic Dicyclomine HCl (Bentyl) 10 mg PO QID [facility] Last Admin: 09/15/18 21:23 Dose: 10 mg Famotidine (Pepcid) 20 mg PO DAILY [facility] Last Admin: 09/15/18 09:10 Dose: 20 mg Vancomycin/Sodium Chloride (Vancomycin 1 Gm/Ns 200 Ml) 1 gm in 200 mls @ 133 mls/hr IVPB MWF [facility]; Protocol Stop: 09/16/18 09:01 Last Admin: 09/15/18 09:03 Dose: 133 mls/hr Vancomycin HCl 1 gm/ Sodium (Chloride) 250 mls @ 166.7 mls/hr IVPB Q24H [facility]; Protocol Stop: 09/21/18 09:01 Insulin Human Regular (Novolin R) 0 unit SC ACHS [facility]; Protocol Last Admin: 09/15/18 21:28 Dose: Not Given Pantoprazole Sodium (Protonix Inj) 40 mg IVP Q12 [facility] Last Admin: 09/15/18 21:35 Dose: 40 mg Rosuvastatin Calcium (Crestor) 5 mg PO HS [facility] Last Admin: 09/15/18 21:23 Dose: 5 mg Sevelamer Carbonate (Renvela) 800 mg PO TIDCC [facility] Last Admin: 09/15/18 18:20 Dose: 800 mg Tamsulosin HCl (Flomax) 0.4 mg PO DAILY [facility] Last Admin: 09/15/18 09:10 Dose: 0.4 mg Vitamin B Complex/Vit C/Folic Acid (Nephro-Amita) 1 tab PO DAILY [facility] Last Admin: 09/15/18 09:09 Dose: 1 tab - Labs Labs: 09/15/18 12:10 09/15/18 08:24 PT 16.2 SECONDS (9.7-12.2) H 09/13/18 04:53 INR 1.5 09/13/18 04:53 APTT 39.9 SECONDS (21-34) H 09/13/18 04:53
[2018-09-16] MEDS: (Novolin R) Insulin Human Regular 100 units/ml vial SC SCH ×4 (08:13→21:44)
[2018-09-16 08:18] LABS: BASO % 0.3 % (0.0-2.0); EOS # 0.1 K/uL (0.0-0.7); EOS % 0.7 % (0.0-4.0); HEMOGLOBIN 9.7 g/dL (12.0-18.0); LYMPH # 0.5 K/uL (1.0-4.3); LYMPH % 6.3 % (20.0-40.0); MEAN CELL VOLUME 102.7 fL (80.0-94.0); MEAN CORPUSCULAR HEMOGLOBIN 34.2 pg (27.0-31.0); MEAN CORPUSCULAR HGB CONC 33.3 g/dL (33.0-37.0); MEAN PLATELET VOLUME 9.3 fL (7.2-11.7); MONO # 0.6 K/uL (0.0-0.8); MONO % 6.6 % (0.0-10.0); NEUT # 7.5 K/uL (1.8-7.0); NEUT % 86.1 % (50.0-75.0); NRBC % 0.1 % (0.0-2.0); PLATELET COUNT 125 K/uL (130-400); RBC 2.84 Mil/uL (4.40-5.90); RED CELL DISTRIBUTION WIDTH 17.8 % (11.5-14.5); WHITE BLOOD COUNT 8.7 K/uL (4.8-10.8)
--- NOTE | 2018-09-16 08:21 | PN ---
DATE: 09/15/2018 LOCATION: 659, bed B. SUBJECTIVE: I was called for followup on the above-mentioned the patient by the admitting medical staff. The entire chart is reviewed. All the available lab and radiology study results, current and the previous medication list, current and the previous medical events were reviewed, and the patient is still treated from his sacral wound without reported recent episodes of active bleeding, chest pain or palpitation, but with reported facial ecchymotic changes recently as well as hematoma above the left eyebrow. LABORATORY DATA: The most recent lab results done today showed normal white blood cells, but hemoglobin 9.7, hematocrit 29.7 with low indices highly suggestive of hypochromic microcytic anemia with sodium 128, BUN 52, creatinine 4.1, glucose 326, calcium 7.1 with low albumin of 2.4, and low total protein 6. Chest CAT scan performed today. Report is still pending, but yesterday chest x-ray is done, report is seen. PHYSICAL EXAMINATION: GENERAL: A 73-year-old male. VITAL SIGNS: Afebrile with pulse of 70, respiratory rate 20-22, blood pressure 124/62. HEENT: Showed pale, dry oral mucous membrane. Nonicteric sclerae. LUNGS: Few scattered crepitation. Decreased air entry at bases. HEART: Positive S1 and S2. ABDOMEN: Soft with mild generalized tenderness. No mass or organomegaly. No rebound tenderness or guarding. NEUROLOGICAL: No reported new neurological deficits, sensory or motor. SKIN: On , the patient still has evidence of lower extremity cellulitis with abscess like lesion. IMPRESSION: 1. Anemia. No evidence of active gastrointestinal bleeding; however, the possibility of gastrointestinal blood loss from upper versus lower gastrointestinal tract was raised versus anemia secondary to chronic disease. 2. Recent history of lower extremity cellulitis. 3. Congestive heart failure, atrial fibrillation with cardiomegaly, by recent history. 4. Reported recent history of osteoarthritis. 5. End-stage renal disease, on hemodialysis. 6. The patient is seen and fully examined by in home sales consultant due to his cardiac disorders and his notes are reviewed. SUGGESTIONS: 1. Agree with your plan. 2. Due to the recent reported abnormal CAT scan of the abdomen and pelvis and due to the patient's extensive ascites, paracentesis guided by ultrasound should be kept in mind with full evaluation of the ascitic fluid. 3. Further recommendation to follow. Thank you for letting me participate in your patient's case management. Samra Tyler MD
[2018-09-16 08:32] LABS: ALB/GLOB RATIO 0.7 (1.0-2.1); ALBUMIN 2.5 g/dL (3.5-5.0); CALCIUM 7.5 mg/dl (8.6-10.4)
[2018-09-16 09:04] LABS: LYMPHOCYTE 4 % (20-40); MONOCYTE 4 % (0-10); TOTAL CELLS COUNTED 100
[2018-09-16 09:05] LABS: NEUTROPHIL 92 % (50-75)
[2018-09-16 09:06] LABS: ANISOCYTOSIS MODERATE; HYPOCHROMIC SLIGHT; PLATELET ESTIMATE SLIGHTLY DECREASED (NORMAL); POLYCHROMIC SLIGHT
[2018-09-16 09:07] LABS: LARGE PLATELETS PRESENT; TOXIC GRANULATION PRESENT
--- NOTE | 2018-09-16 09:27 | PN ---
DATE: 09/16/2018 LOCATION: 667, bed B. SUBJECTIVE: This is a 73-year-old patient, seen and examined in rounds, in isolation, with ecchymotic changes in his face, especially the left frontal area with edematous changes and some skin wound and infectious area covered with clean dressing, especially his foot bilaterally. No reported active bleeding or evidence of significant increase of change of bowel movement habit. The patient appeared to be somewhat more alert and awake today. The entire chart is reviewed including but not limited to the most recent lab and radiology study results, current and the previous medication list, current and the previous medical events. Case discussed early this morning with the staff in the floor. Today's lab results still pending but the patient still have persistent low hemoglobin and hematocrit with recently reported thrombocytopenia but normal white blood cells with blood glucose level the latest of 298 with low albumin, low total protein with low calcium, sodium is still low at the level of 128 as per yesterday. The most recently done chest x-ray yesterday, official report is seen indicative of large right and moderate left pleural effusion and compressive atelectasis of the lower lobe with large abdominal ascites. PHYSICAL EXAMINATION: GENERAL: A 73-year-old male. VITAL SIGNS: Afebrile with pulse of 72, respiratory rate 20 to 22, blood pressure of 124/76. HEENT: Showed pale, dry oral mucous membrane. Nonicteric sclerae. LUNGS: Few scattered crepitation. Decreased air entry at bases. HEART: Positive S1 and S2. ABDOMEN: Soft with mild generalized tenderness. No mass or organomegaly. No rebound tenderness or guarding. EXTREMITIES: Without significant clubbing, cyanosis or edema. NEUROLOGIC: No reported new neurological deficits, sensory or motor. No reported new focal deficits. IMPRESSION: 1. Ascites, of unclear etiology, felt to be secondary to cardiac rather than liver dysfunction, especially right-sided heart failure. 2. Known history of but not limited to atrial fibrillation with congestive heart failure and cardiomegaly. 3. Bilateral lower extremity cellulitis. The patient is in isolation so far. 4. Re-exacerbation of the peptic ulcer disease. 5. Anemia, most likely secondary to above. 6. Electrolyte imbalance with hyponatremia, hypocalcemia. 7. End-stage renal disease, on hemodialysis. 8. Peripheral vascular disease. 9. Methicillin-resistant Staphylococcus aureus infection with positive wound culture in the right and the left side. 10. Bilateral pleural effusion with atelectasis. The patient will need repeat abdominal paracentesis with thoracocentesis guided by ultrasound, by the Interventional Radiology staff. 11. Follow up in cancer markers. 12. Further recommendation to follow. It has to be mentioned that the patient was seen as per the request of the admitting MD as well as the staff in the floor. We will follow up closely with you. Samra Tyler MD
--- NOTE | 2018-09-16 09:53 | CP.PCM.PN ---
Subjective - Date & Time of Evaluation Date of Evaluation: 09/16/18 Time of Evaluation: 09:51 - Subjective Subjective: transferred to isolation due to MRSA in wound stable dialysis 09/15- UF 1000ml no overt bleeding- Hg stable at 9.7 no dyspnea, CPs, N, V, fevers, chills Objective - Vital Signs/Intake and Output Vital Signs (last 24 hours): Temp Pulse Resp BP Pulse Ox 97.4 F L 76 18 138/63 95 09/16/18 08:15 09/16/18 08:15 09/16/18 08:15 09/16/18 08:15 09/16/18 08:15 Intake and Output: 09/16/18 09/16/18 06:59 18:59 Intake Total 300 Balance 300 - Medications Medications: Current Medications Acetaminophen (Tylenol 325mg Tab) 650 mg PO Q6 PRN PRN Reason: Pain, Mild (1-3) Last Admin: 09/12/18 18:36 Dose: 650 mg Collagenase (Santyl) 1 gm TOP DAILY [facility] Last Admin: 09/15/18 09:16 Dose: 1 applic Dicyclomine HCl (Bentyl) 10 mg PO QID [facility] Last Admin: 09/15/18 21:23 Dose: 10 mg Famotidine (Pepcid) 20 mg PO DAILY [facility] Last Admin: 09/15/18 09:10 Dose: 20 mg Vancomycin HCl 1 gm/ Sodium (Chloride) 250 mls @ 166.7 mls/hr IVPB Q24H [facility]; Protocol Stop: 09/21/18 09:01 Insulin Human Regular (Novolin R) 0 unit SC ACHS [facility]; Protocol Last Admin: 09/16/18 08:13 Dose: 2 units Pantoprazole Sodium (Protonix Inj) 40 mg IVP Q12 [facility] Last Admin: 09/15/18 21:35 Dose: 40 mg Rosuvastatin Calcium (Crestor) 5 mg PO HS [facility] Last Admin: 09/15/18 21:23 Dose: 5 mg Sevelamer Carbonate (Renvela) 800 mg PO TIDCC [facility] Last Admin: 09/16/18 08:13 Dose: 800 mg Tamsulosin HCl (Flomax) 0.4 mg PO DAILY [facility] Last Admin: 09/15/18 09:10 Dose: 0.4 mg Vitamin B Complex/Vit C/Folic Acid (Nephro-Amita) 1 tab PO DAILY [facility] Last Admin: 09/15/18 09:09 Dose: 1 tab - Labs Labs: 09/16/18 08:05 09/16/18 08:05 PT 16.2 SECONDS (9.7-12.2) H 09/13/18 04:53 INR 1.5 09/13/18 04:53 APTT 39.9 SECONDS (21-34) H 09/13/18 04:53 - Constitutional Appears: No Acute Distress, Cachectic, Chronically Ill - Head Exam Head Exam: ATRAUMATIC, NORMAL INSPECTION - Eye Exam Eye Exam: EOMI, Normal appearance - Neck Exam Neck Exam: Normal Inspection. absent: Tenderness - Respiratory Exam Respiratory Exam: Clear to Ausculation Bilateral, NORMAL BREATHING PATTERN - Cardiovascular Exam Cardiovascular Exam: Irregular Rhythm, +S1 - GI/Abdominal Exam GI & Abdominal Exam: Soft. absent: Tenderness - Extremities Exam Extremities Exam: Calf Tenderness, Tenderness - Neurological Exam Neurological Exam: Awake, CN II-XII Intact - Skin Skin Exam: Dry, Warm Assessment and Plan (1) Atrial fibrillation Status: Acute (2) CHF (congestive heart failure) Status: Acute (3) Cardiomyopathy Status: Acute (4) Cellulitis of left lower leg Status: Acute (5) Confusion Status: Acute (6) Foot osteomyelitis Status: Acute (7) PAD (peripheral artery disease) Status: Acute (8) ESRD (end stage renal disease) on dialysis Status: Chronic - Assessment and Plan (Free Text) Plan: dialysis MWF monitor Hg wound care ABs per ID
--- NOTE | 2018-09-16 10:39 | CP.PCM.PN ---
Subjective - Date & Time of Evaluation Date of Evaluation: 09/16/18 Time of Evaluation: 10:39 - Subjective Subjective: Podiatry Progress Note: Dr. Alfredo Cavanaugh 73 y/o male seen and evaluated at bedside for bilateral lower extremity ulcerations. Patient denies any pain to the lower extremities at the ulceration sites. Offloading boots in place B/L. dressing clean, dry and intact. Denies having any overnight F/N/V/C/SOB. Objective - Vital Signs/Intake and Output Vital Signs (last 24 hours): Temp Pulse Resp BP Pulse Ox 97.4 F L 76 18 138/63 95 09/16/18 08:15 09/16/18 08:15 09/16/18 08:15 09/16/18 08:15 09/16/18 08:15 Intake and Output: 09/16/18 09/16/18 06:59 18:59 Intake Total 300 Balance 300 - Medications Medications: Current Medications Acetaminophen (Tylenol 325mg Tab) 650 mg PO Q6 PRN PRN Reason: Pain, Mild (1-3) Last Admin: 09/12/18 18:36 Dose: 650 mg Collagenase (Santyl) 1 gm TOP DAILY [facility] Last Admin: 09/15/18 09:16 Dose: 1 applic Dicyclomine HCl (Bentyl) 10 mg PO QID [facility] Last Admin: 09/15/18 21:23 Dose: 10 mg Famotidine (Pepcid) 20 mg PO DAILY [facility] Last Admin: 09/15/18 09:10 Dose: 20 mg Vancomycin HCl 1 gm/ Sodium (Chloride) 250 mls @ 166.7 mls/hr IVPB Q24H [facility]; Protocol Stop: 09/21/18 09:01 Insulin Human Regular (Novolin R) 0 unit SC ACHS [facility]; Protocol Last Admin: 09/16/18 08:13 Dose: 2 units Pantoprazole Sodium (Protonix Inj) 40 mg IVP Q12 [facility] Last Admin: 09/15/18 21:35 Dose: 40 mg Rosuvastatin Calcium (Crestor) 5 mg PO HS [facility] Last Admin: 09/15/18 21:23 Dose: 5 mg Sevelamer Carbonate (Renvela) 800 mg PO TIDCC [facility] Last Admin: 09/16/18 08:13 Dose: 800 mg Tamsulosin HCl (Flomax) 0.4 mg PO DAILY [facility] Last Admin: 09/15/18 09:10 Dose: 0.4 mg Vitamin B Complex/Vit C/Folic Acid (Nephro-Amita) 1 tab PO DAILY [facility] Last Admin: 09/15/18 09:09 Dose: 1 tab - Labs Labs: 09/16/18 08:05 09/16/18 08:05 PT 16.2 SECONDS (9.7-12.2) H 09/13/18 04:53 INR 1.5 09/13/18 04:53 APTT 39.9 SECONDS (21-34) H 09/13/18 04:53 - Constitutional Appears: Well, Non-toxic, No Acute Distress - Head Exam Head Exam: ATRAUMATIC, NORMOCEPHALIC - Eye Exam Eye Exam: Normal appearance - ENT Exam ENT Exam: Mucous Membranes Moist - Respiratory Exam Respiratory Exam: Clear to Ausculation Bilateral - Cardiovascular Exam Cardiovascular Exam: REGULAR RHYTHM, +S1, +S2 - Extremities Exam Additional comments: B/L Lower extremity focused exam: VASC: DP/PT pulses are non-palpable at this time B/L. Temperature gradient warm to warm B/L. CFT delayed > 3 sec to all digits on the left and approximately 3 sec to the right. NEURO: Protective sensation slightly diminished. DERM: RLE: Lateral mid leg ulceration measuring approximately 2.2cm x 0.9cm x 0.5cm extending down to the level of muscle tissue. No active drainage or purulence, no malodor, no fluctuance or jackson wound erythema. An ulcer noted on the medial aspect of the 1st MPJ covered with black eschar 2 cm in diameter with hyperkeratotic edge. Base is mixed fibronecrotic. No drainage, no malodor, no probe to bone, no undermining. Another nonstageable ulcer noted on the plantar heel measuring 5 cm X 4 cm covered with black eschar. No drainage, no malodor, no probe to bone, no undermining. LLE: An ulcer noted on the medial aspect of the 1st MPJ covered with black escha r measuring approximately 2 cm X 1 cm. Base is necrotic, with no drainage, no malodor, no probe to bone, no undermining or tunneling. Additional circular ulceration noted on the medial side of the hallux approximately 0.5 cm in diameter covered with black eschar. Base is necrotic, with no drainage, no malodor, no probe to bone, no undermining or tunneling. 2 ulcerations noted on the plantar aspect of the 4th and 5th MPJ measuring 2 cm x 1 cm x 0.1cm and 1.5 cm X 0.8 cm x 0.1cm covered with black eschar. Wound bases are necrotic, with no drainage, no malodor, no probe to bone, no undermining. Another non stageable ulcer noted on the plantar heel measuring 5.5 cm X 4.2 cm covered with black e schar. No drainage, Nno malodor, no probe to bone, no undermining. MSK: No tenderness to palpation of B/L lower extremity ulcerations. MMT 3/5 B/L to all groups - Neurological Exam Neurological Exam: Alert, Awake Assessment and Plan - Assessment and Plan (Free Text) Assessment: 73 year old male patient with chronic bilateral lower extremity ulcerations Plan: Patient seen and evaluated Discussed treatment plan with Dr. Cavanaugh B/L foot x-rays: No evidence of acute displaced fracture nor dislocation. No definitive evidence of cortical destructive changes seen. Questionable surface ulceration medial aspect 1st digit with surrounding soft tissue swelling; rule out cellulitis. Consider follow-up MRI for further evaluation Wound sites flushed with saline and dressings to bilateral LE applied using Santyl, ABD, DSD Wound culture + for MRSA Continue IV abx as per ID recommendations Vascular consult, Dr. Macias B/L venous duplex: no evidence of DVT Abdominal angiogram (08/24): Right lower extremity: Scattered calcific and noncalcific plaque in the common femoral and superficial femoral arteries with area of focal severe stenosis due in the distal 1/3 segment of the superficial femoral artery. Patent popliteal artery and below-knee arteries. Left lower extremity: Scattered calcific and noncalcific plaque in the common femoral and superficial femoral arteries with short segment area of severe stenosis in the distal 1/3 segment. Patent popliteal artery. Moderate segment stenosis of the proximal posterior tibial artery, stable with distal reconstitution to the level of the ankle. Patent peroneal and anterior tibial arteries with scattered calcific plaque. FARRUKH/PVR (08/25): B/L Moderate infrapopliteal occlusive disease with medial arterial calcification No plans for surgical intervention from podiatry standpoint at this time Will continue with local wound care Podiatry will continue to follow patient while in house
[2018-09-16] MEDS: Collagenase 250 Units/gm Ointment(30 gm) TOP SCH (10:43)
[2018-09-16] MEDS: Multivitamin Vitamin B Complex (Nephro-Vite) Tab PO SCH (12:43)
[2018-09-17 08:00] LABS: BASO % 0.3 % (0.0-2.0); EOS # 0.3 K/uL (0.0-0.7); EOS % 3.1 % (0.0-4.0); HEMOGLOBIN 10.2 g/dL (12.0-18.0); LYMPH % 11.3 % (20.0-40.0); MEAN CELL VOLUME 102.8 fL (80.0-94.0); MEAN CORPUSCULAR HEMOGLOBIN 34.1 pg (27.0-31.0); MEAN CORPUSCULAR HGB CONC 33.2 g/dL (33.0-37.0); MEAN PLATELET VOLUME 9.7 fL (7.2-11.7); MONO # 0.5 K/uL (0.0-0.8); MONO % 6.2 % (0.0-10.0); NEUT # 6.8 K/uL (1.8-7.0); NEUT % 79.1 % (50.0-75.0); RBC 2.98 Mil/uL (4.40-5.90); RED CELL DISTRIBUTION WIDTH 17.7 % (11.5-14.5); WHITE BLOOD COUNT 8.6 K/uL (4.8-10.8)
[2018-09-17] MEDS: (Novolin R) Insulin Human Regular 100 units/ml vial SC SCH ×4 (08:03→22:45)
[2018-09-17 08:28] LABS: ALB/GLOB RATIO 0.7 (1.0-2.1); ALBUMIN 2.5 g/dL (3.5-5.0); CALCIUM 7.6 mg/dl (8.6-10.4)
[2018-09-17] MEDS: Multivitamin Vitamin B Complex (Nephro-Vite) Tab PO SCH (09:29)
[2018-09-17] MEDS: Collagenase 250 Units/gm Ointment(30 gm) TOP SCH (10:00)
--- NOTE | 2018-09-17 12:21 | CP.PCM.PN ---
Subjective - Date & Time of Evaluation Date of Evaluation: 09/17/18 Time of Evaluation: 12:20 - Subjective Subjective: Podiatry Progress Note: Dr. Alfredo Cavanaugh 73 y/o male seen and evaluated at bedside for bilateral lower extremity ulcerations. Patient denies any pain to the lower extremities at the ulceration sites. Offloading boots in place B/L. dressing clean, dry and intact. Denies having any overnight F/N/V/C/SOB. Objective - Vital Signs/Intake and Output Vital Signs (last 24 hours): Temp Pulse Resp BP Pulse Ox 97.3 F L 84 20 96/53 L 95 09/17/18 07:00 09/17/18 07:00 09/17/18 07:00 09/17/18 07:00 09/17/18 07:00 Intake and Output: 09/17/18 09/17/18 06:59 18:59 Intake Total 120 Balance 120 - Medications Medications: Current Medications Acetaminophen (Tylenol 325mg Tab) 650 mg PO Q6 PRN PRN Reason: Pain, Mild (1-3) Last Admin: 09/12/18 18:36 Dose: 650 mg Collagenase (Santyl) 1 gm TOP DAILY [facility] Last Admin: 09/17/18 10:00 Dose: 1 applic Dicyclomine HCl (Bentyl) 10 mg PO QID [facility] Last Admin: 09/17/18 09:29 Dose: 10 mg Famotidine (Pepcid) 20 mg PO DAILY [facility] Last Admin: 09/17/18 09:29 Dose: 20 mg Vancomycin HCl 1 gm/ Sodium (Chloride) 250 mls @ 166.7 mls/hr IVPB Q24H [facility]; Protocol Stop: 09/21/18 09:01 Insulin Human Regular (Novolin R) 0 unit SC ACHS [facility]; Protocol Last Admin: 09/17/18 12:15 Dose: 1 units Pantoprazole Sodium (Protonix Inj) 40 mg IVP Q12 [facility] Last Admin: 09/17/18 09:29 Dose: 40 mg Rosuvastatin Calcium (Crestor) 5 mg PO HS [facility] Last Admin: 09/16/18 21:58 Dose: 5 mg Sevelamer Carbonate (Renvela) 800 mg PO TIDCC [facility] Last Admin: 09/17/18 12:15 Dose: 800 mg Tamsulosin HCl (Flomax) 0.4 mg PO DAILY [facility] Last Admin: 09/17/18 09:29 Dose: 0.4 mg Vitamin B Complex/Vit C/Folic Acid (Nephro-Amita) 1 tab PO DAILY [facility] Last Admin: 09/17/18 09:29 Dose: 1 tab - Labs Labs: 09/17/18 07:49 09/17/18 07:49 PT 16.2 SECONDS (9.7-12.2) H 09/13/18 04:53 INR 1.5 09/13/18 04:53 APTT 39.9 SECONDS (21-34) H 09/13/18 04:53 - Constitutional Appears: Well, Non-toxic - Head Exam Head Exam: ATRAUMATIC, NORMOCEPHALIC - Eye Exam Eye Exam: Normal appearance - ENT Exam ENT Exam: Mucous Membranes Moist - Cardiovascular Exam Cardiovascular Exam: REGULAR RHYTHM, +S1, +S2 - Extremities Exam Additional comments: B/L Lower extremity focused exam: VASC: DP/PT pulses are non-palpable at this time B/L. Temperature gradient warm to warm B/L. CFT>3 delayed. x 10 NEURO: Protective sensation slightly diminished. DERM: RLE: Lateral mid leg ulceration measuring approximately 2.2cm x 0.9cm x 0.5cm extending down to the level of muscle tissue. No active drainage or purulence, no malodor, no fluctuance or jackson wound erythema. An ulcer noted on the medial aspect of the 1st MPJ covered with black eschar 2 cm in diameter with hyperkeratotic edge. Base is mixed fibronecrotic. No drainage, no malodor, no probe to bone, no undermining. Another nonstageable ulcer noted on the plantar heel measuring 5 cm X 4 cm covered with black eschar. No drainage, no malodor, no probe to bone, no undermining. LLE: An ulcer noted on the medial aspect of the 1st MPJ covered with black eschar measuring approximately 2 cm X 1 cm. Base is necrotic, with no drainage, no malodor, no probe to bone, no undermining or tunneling. Additional circular ulceration noted on the medial side of the hallux approximately 0.5 cm in diameter covered with black eschar. Base is necrotic, with no drainage, no malodor, no probe to bone, no undermining or tunneling. 2 ulcerations noted on the plantar aspect of the 4th and 5th MPJ measuring 2 cm x 1 cm x 0.1cm and 1.5 cm X 0.8 cm x 0.1cm covered with black eschar. Wound bases are necrotic, with no drainage, no malodor, no probe to bone, no undermining. Another non stageable ulcer noted on the plantar heel measuring 5.5 cm X 4.2 cm covered with black eschar. No drainage, Nno malodor, no probe to bone, no undermining. MSK: No tenderness to palpation of B/L lower extremity ulcerations. MMT 3/5 B/L to all groups - Neurological Exam Neurological Exam: Alert, Awake, Oriented x3 Assessment and Plan - Assessment and Plan (Free Text) Assessment: 73 year old male patient with chronic bilateral lower extremity ulcerations Plan: Patient seen and evaluated Discussed treatment plan with Dr. Cavanaugh B/L foot x-rays: No evidence of acute displaced fracture nor dislocation. No definitive evidence of cortical destructive changes seen. Questionable surface ulceration medial aspect 1st digit with surrounding soft tissue swelling; rule out cellulitis. Consider follow-up MRI for further evaluation Wound sites flushed with saline and dressings to bilateral LE applied using Santyl, ABD, DSD Wound culture + for MRSA Continue IV abx as per ID recommendations Vascular consult, Dr. Macias B/L venous duplex: no evidence of DVT Abdominal angiogram (08/24): Right lower extremity: Scattered calcific and noncalcific plaque in the common femoral and superficial femoral arteries with area of focal severe stenosis due in the distal 1/3 segment of the superficial femoral artery. Patent popliteal artery and below-knee arteries. Left lower extremity: Scattered calcific and noncalcific plaque in the common femoral and superficial femoral arteries with short segment area of severe stenosis in the distal 1/3 segment. Patent popliteal artery. Moderate segment stenosis of the proximal posterior tibial artery, stable with distal reconstitution to the level of the ankle. Patent peroneal and anterior tibial arteries with scattered calcific plaque. FARRUKH/PVR (08/25): B/L Moderate infrapopliteal occlusive disease with medial arterial calcification No plans for surgical intervention from podiatry standpoint at this time Will continue with local wound care Podiatry will continue to follow patient while in house
--- NOTE | 2018-09-17 12:22 | PN ---
DATE: 09/17/2018 LOCATION 667, bed B. SUBJECTIVE: This is a 73-year-old male seen and examined in rounds without significant reported clinical changes. No active bleeding with persistent ulceration of the lower extremities, covered with clean dressing. No reported chest pain, palpitation, significant increase of shortness of breath or evidence of active GI bleeding. The entire chart is reviewed including but not limited to most recent lab and radiology study results, current and the previous medication list and today's lab showed hemoglobin 10.2, hematocrit 30.7 with thrombocytopenia of 126. Sodium 131, BUN of 55, creatinine 4.4, glucose 194, calcium 7.6 with low albumin as well as low total protein with increased alkaline phosphatase at 205. PHYSICAL EXAMINATION: GENERAL: A 73-year-old male. VITAL SIGNS: Afebrile with pulse of 82, blood pressure of 100/60 with respiratory rate 18 to 20. HEENT: Showed pale, dry oral mucous membrane. Nonicteric sclerae. LUNGS: Few scattered crepitation. Decreased air entry at bases. HEART: Positive S1 and S2. ABDOMEN: Soft. Bowel sounds are present with no mass or organomegaly. No rebound tenderness or guarding. Positive for ascites. EXTREMITIES: With lower extremities mild edematous changes. No clubbing or cyanosis. NEUROLOGIC: No reported new neurological deficits, sensory or motor. No reported new focal deficits. IMPRESSION: 1. Ascites that could be secondary to right-side heart failure other than hepatic in origin. 2. Pleural effusion. 3. Known history of atrial fibrillation, hypertension, congestive heart failure. 4. Recently reported bilateral lower extremity cellulitis. 5. Re-exacerbation of peptic ulcer disease. 6. Anemia, most likely secondary to above with renal insufficiency. 7. Electrolyte imbalance, end-stage renal disease on hemodialysis, peripheral vascular disease by recent history. 8. Methicillin-resistant Staphylococcus aureus infection of the lower extremity ulcerations. SUGGESTIONS: 1. Agree with your plan. 2. Follow up in cancer markers. 3. The patient will need thoracentesis as well as ultrasound-guided abdominal paracentesis by the IR staff. 4. Blood transfusion only as needed to keep hemoglobin around 10 g percent. 5. Further recommendation to follow. Samra Tyler MD [facility] # [id number]
--- NOTE | 2018-09-17 15:10 | CP.PCM.PN ---
Subjective - Date & Time of Evaluation Date of Evaluation: 09/17/18 Time of Evaluation: 09:00 - Subjective Subjective: seen on rounds no new complaints orders written IV rx renewed Objective - Vital Signs/Intake and Output Vital Signs (last 24 hours): Temp Pulse Resp BP Pulse Ox 97.3 F L 84 20 96/53 L 95 09/17/18 07:00 09/17/18 07:00 09/17/18 07:00 09/17/18 07:00 09/17/18 07:00 Intake and Output: 09/17/18 09/17/18 06:59 18:59 Intake Total 120 Balance 120 - Medications Medications: Current Medications Acetaminophen (Tylenol 325mg Tab) 650 mg PO Q6 PRN PRN Reason: Pain, Mild (1-3) Last Admin: 09/12/18 18:36 Dose: 650 mg Collagenase (Santyl) 1 gm TOP DAILY [facility] Last Admin: 09/17/18 10:00 Dose: 1 applic Dicyclomine HCl (Bentyl) 10 mg PO QID [facility] Last Admin: 09/17/18 14:20 Dose: 10 mg Famotidine (Pepcid) 20 mg PO DAILY [facility] Last Admin: 09/17/18 09:29 Dose: 20 mg Vancomycin HCl 1 gm/ Sodium (Chloride) 250 mls @ 166.7 mls/hr IVPB Q24H [facility]; Protocol Stop: 09/21/18 09:01 Insulin Human Regular (Novolin R) 0 unit SC ACHS [facility]; Protocol Last Admin: 09/17/18 12:15 Dose: 1 units Pantoprazole Sodium (Protonix Inj) 40 mg IVP Q12 [facility] Last Admin: 09/17/18 09:29 Dose: 40 mg Rosuvastatin Calcium (Crestor) 5 mg PO HS [facility] Last Admin: 09/16/18 21:58 Dose: 5 mg Sevelamer Carbonate (Renvela) 800 mg PO TIDCC [facility] Last Admin: 09/17/18 12:15 Dose: 800 mg Tamsulosin HCl (Flomax) 0.4 mg PO DAILY [facility] Last Admin: 09/17/18 09:29 Dose: 0.4 mg Vitamin B Complex/Vit C/Folic Acid (Nephro-Amita) 1 tab PO DAILY [facility] Last Admin: 09/17/18 09:29 Dose: 1 tab - Labs Labs: 09/17/18 07:49 09/17/18 07:49 PT 16.2 SECONDS (9.7-12.2) H 09/13/18 04:53 INR 1.5 09/13/18 04:53 APTT 39.9 SECONDS (21-34) H 09/13/18 04:53 - Constitutional Appears: Non-toxic, Chronically Ill - Head Exam Head Exam: ATRAUMATIC, NORMAL INSPECTION, NORMOCEPHALIC - Eye Exam Eye Exam: EOMI, Normal appearance, PERRL Pupil Exam: NORMAL ACCOMODATION, PERRL - ENT Exam ENT Exam: Mucous Membranes Moist, Normal Exam - Neck Exam Neck Exam: Full ROM, Normal Inspection. absent: Lymphadenopathy - Respiratory Exam Respiratory Exam: Clear to Ausculation Bilateral, NORMAL BREATHING PATTERN - Cardiovascular Exam Cardiovascular Exam: REGULAR RHYTHM, +S1, +S2. absent: Murmur - GI/Abdominal Exam GI & Abdominal Exam: Soft, Normal Bowel Sounds. absent: Tenderness - Rectal Exam Rectal Exam: Deferred - Exam Exam: NORMAL INSPECTION - Extremities Exam Extremities Exam: Full ROM, Normal Capillary Refill, Normal Inspection. absent: Joint Swelling, Pedal Edema - Back Exam Back Exam: NORMAL INSPECTION - Neurological Exam Neurological Exam: Alert, Awake, CN II-XII Intact, Normal Gait, Oriented x3 - Psychiatric Exam Psychiatric exam: Normal Affect, Normal Mood - Skin Skin Exam: Dry Assessment and Plan (1) Anemia Status: Acute (2) Atrial fibrillation Status: Acute (3) Bilateral lower leg cellulitis Status: Acute (4) CHF (congestive heart failure) Status: Acute (5) Cellulitis and abscess of left leg Status: Acute (6) Cardiomyopathy Status: Acute (7) PVD (peripheral vascular disease) Status: Acute - Assessment and Plan (Free Text) Assessment: severe distal non bypassable PVD with chronic ulcers and wounds L > R and c/s + for MRSA improving with conservative rx prognosis remains poor May need BKA con t IV rx c=foer 8 weeks with wound care
--- NOTE | 2018-09-17 23:39 | CP.PCM.PN ---
Subjective - Date & Time of Evaluation Date of Evaluation: 09/16/18 Time of Evaluation: 09:35 - Subjective Subjective: Patient seen and evaluated No cardiac events noted Objective - Additional Findings Additional findings: - Constitutional Appears: Cachectic, Chronically Ill - Head Exam Additional comments: ecchymosis across entire face - Eye Exam Eye Exam: EOMI - ENT Exam ENT Exam: Mucous Membranes Moist - Neck Exam Neck exam: Negative for: Lymphadenopathy, Tenderness - Respiratory Exam Respiratory Exam: Decreased Breath Sounds, NORMAL BREATHING PATTERN. absent: Accessory Muscle Use, Rales, Rhonchi, Wheezes, Respiratory Distress - Cardiovascular Exam Cardiovascular Exam: REGULAR RHYTHM, +S1, +S2 - GI/Abdominal Exam GI & Abdominal Exam: Soft. absent: Distended, Firm, Guarding, Rigid, Tenderness - Extremities Exam Extremities exam: Positive for: tenderness. Negative for: calf tenderness, pedal edema Additional comments: pressure ulcer boots in place b/l AV fistula on right arm - Neurological Exam Neurological exam: Alert, Oriented x3 - Psychiatric Exam Psychiatric exam: Normal Affect, Normal Mood - Skin Skin Exam: Dry, Warm Assessment and Plan - Assessment and Plan (Free Text) Plan: Pulmonary Hypertension of Unknown Etiology Right-sided Heart Failure Hypotension Denies any chest pain or previous cardiac history previous ECHO 05/12/2018: LV ~ 50%, Decreased R ventricle systolic function, dilated right ventricle (RVSP 64.25, was 38.04 on ECHO from 01/11/18) * repeat ECHO pending to re-assess pulmonary HTN Recommend CTA to r/o pulmonary embolism(s) due to acute change in right sided heart failure as seen on ECHOs from 01/11/18 to 05/12/18. BNP 34,900 (was >175,000 on 01/10/18) Continue current medical management PAD Foot Ulcers Wound Infection - MRSA+ Vascular surgery consulted * no indications for any vascular surgery intervention at this time. ID consulted Wound care consulted CT Angio Abd w ileofem runoff performed 08/24 with evidence of bilateral common femoral and superfical femoral artery disease with reconstitution distally, patent popliteal and below knee arteries. Wound cultures (09/09/18) for left and right foot ulcer + for MRSA Blood cultures (09/07/18) negative abx as per ID Ascities GI consulted Paracentsis negative for SBP Ascities likely 2/2 to right sided heart failure Afib continue eliquis ESRD on HD Nephrology consulted continue management as per nephrology Objective - Vital Signs/Intake and Output Vital Signs (last 24 hours): Temp Pulse Resp BP Pulse Ox 97.1 F L 70 18 94/42 L 97 09/17/18 15:00 09/17/18 15:00 09/17/18 15:00 09/17/18 15:00 09/17/18 15:00 - Medications Medications: Current Medications Acetaminophen (Tylenol 325mg Tab) 650 mg PO Q6 PRN PRN Reason: Pain, Mild (1-3) Last Admin: 09/12/18 18:36 Dose: 650 mg Collagenase (Santyl) 1 gm TOP DAILY [facility] Last Admin: 09/16/18 10:43 Dose: 1 applic Dicyclomine HCl (Bentyl) 10 mg PO QID [facility] Last Admin: 09/17/18 21:47 Dose: 10 mg Famotidine (Pepcid) 20 mg PO DAILY [facility] Last Admin: 09/17/18 09:29 Dose: 20 mg Vancomycin HCl 1 gm/ Sodium (Chloride) 250 mls @ 166.7 mls/hr IVPB Q24H [facility]; Protocol Stop: 09/21/18 09:01 Insulin Human Regular (Novolin R) 0 unit SC ACHS [facility]; Protocol Last Admin: 09/17/18 22:45 Dose: Not Given Pantoprazole Sodium (Protonix Inj) 40 mg IVP Q12 [facility] Last Admin: 09/17/18 21:47 Dose: 40 mg Rosuvastatin Calcium (Crestor) 5 mg PO HS [facility] Last Admin: 09/17/18 21:47 Dose: 5 mg Sevelamer Carbonate (Renvela) 800 mg PO TIDCC [facility] Last Admin: 09/17/18 17:36 Dose: 800 mg Tamsulosin HCl (Flomax) 0.4 mg PO DAILY [facility] Last Admin: 09/17/18 09:29 Dose: 0.4 mg Vitamin B Complex/Vit C/Folic Acid (Nephro-Amita) 1 tab PO DAILY [facility] Last Admin: 09/17/18 09:29 Dose: 1 tab - Labs Labs: 09/17/18 07:49 09/17/18 07:49 PT 16.2 SECONDS (9.7-12.2) H 09/13/18 04:53 INR 1.5 09/13/18 04:53 APTT 39.9 SECONDS (21-34) H 09/13/18 04:53
--- NOTE | 2018-09-17 23:40 | CP.PCM.PN ---
Subjective - Date & Time of Evaluation Date of Evaluation: 09/17/18 Time of Evaluation: 19:35 - Subjective Subjective: Patient seen and evaluated No events noted Objective - Additional Findings Additional findings: - Constitutional Appears: Cachectic, Chronically Ill - Head Exam Additional comments: ecchymosis across entire face - Eye Exam Eye Exam: EOMI - ENT Exam ENT Exam: Mucous Membranes Moist - Neck Exam Neck exam: Negative for: Lymphadenopathy, Tenderness - Respiratory Exam Respiratory Exam: Decreased Breath Sounds, NORMAL BREATHING PATTERN. absent: Accessory Muscle Use, Rales, Rhonchi, Wheezes, Respiratory Distress - Cardiovascular Exam Cardiovascular Exam: REGULAR RHYTHM, +S1, +S2 - GI/Abdominal Exam GI & Abdominal Exam: Soft. absent: Distended, Firm, Guarding, Rigid, Tenderness - Extremities Exam Extremities exam: Positive for: tenderness. Negative for: calf tenderness, pedal edema Additional comments: pressure ulcer boots in place b/l AV fistula on right arm - Neurological Exam Neurological exam: Alert, Oriented x3 - Psychiatric Exam Psychiatric exam: Normal Affect, Normal Mood - Skin Skin Exam: Dry, Warm Assessment and Plan - Assessment and Plan (Free Text) Plan: Pulmonary Hypertension of Unknown Etiology Right-sided Heart Failure Hypotension Denies any chest pain or previous cardiac history previous ECHO 05/12/2018: LV ~ 50%, Decreased R ventricle systolic function, dilated right ventricle (RVSP 64.25, was 38.04 on ECHO from 01/11/18) * repeat ECHO pending to re-assess pulmonary HTN Recommend CTA to r/o pulmonary embolism(s) due to acute change in right sided heart failure as seen on ECHOs from 01/11/18 to 05/12/18. BNP 34,900 (was >175,000 on 01/10/18) Continue current medical management PAD Foot Ulcers Wound Infection - MRSA+ Vascular surgery consulted * no indications for any vascular surgery intervention at this time. ID consulted Wound care consulted CT Angio Abd w ileofem runoff performed 08/24 with evidence of bilateral common femoral and superfical femoral artery disease with reconstitution distally, patent popliteal and below knee arteries. Wound cultures (09/09/18) for left and right foot ulcer + for MRSA Blood cultures (09/07/18) negative abx as per ID Ascities GI consulted Paracentsis negative for SBP Ascities likely 2/2 to right sided heart failure Afib continue eliquis ESRD on HD Nephrology consulted continue management as per nephrology Objective - Vital Signs/Intake and Output Vital Signs (last 24 hours): Temp Pulse Resp BP Pulse Ox 97.1 F L 70 18 94/42 L 97 09/17/18 15:00 09/17/18 15:00 09/17/18 15:00 09/17/18 15:00 09/17/18 15:00 - Medications Medications: Current Medications Acetaminophen (Tylenol 325mg Tab) 650 mg PO Q6 PRN PRN Reason: Pain, Mild (1-3) Last Admin: 09/12/18 18:36 Dose: 650 mg Collagenase (Santyl) 1 gm TOP DAILY REPLACED BY [facility] Last Admin: 09/16/18 10:43 Dose: 1 applic Dicyclomine HCl (Bentyl) 10 mg PO QID REPLACED BY [facility] Last Admin: 09/17/18 21:47 Dose: 10 mg Famotidine (Pepcid) 20 mg PO DAILY [facility]PL[facility] BY [facility] Last Admin: 09/17/18 09:29 Dose: 20 mg Vancomycin HCl 1 gm/ Sodium (Chloride) 250 mls @ 166.7 mls/hr IVPB Q24H REPLACED BY [facility]; Protocol Stop: 09/21/18 09:01 Insulin Human Regular (Novolin R) 0 unit SC ACHS REPLACED BY [facility]; Protocol Last Admin: 09/17/18 22:45 Dose: Not Given Pantoprazole Sodium (Protonix Inj) 40 mg IVP Q12 REPLACED BY [facility] Last Admin: 09/17/18 21:47 Dose: 40 mg Rosuvastatin Calcium (Crestor) 5 mg PO HS REPLACED BY [facility] Last Admin: 09/17/18 21:47 Dose: 5 mg Sevelamer Carbonate (Renvela) 800 mg PO TIDCC DON Last Admin: 09/17/18 17:36 Dose: 800 mg Tamsulosin HCl (Flomax) 0.4 mg PO DAILY REPLACED BY [facility] Last Admin: 09/17/18 09:29 Dose: 0.4 mg Vitamin B Complex/Vit C/Folic Acid (Nephro-Amita) 1 tab PO DAILY REPLACED BY [facility] Last Admin: 09/17/18 09:29 Dose: 1 tab - Labs Labs: 09/17/18 07:49 09/17/18 07:49 PT 16.2 SECONDS (9.7-12.2) H 09/13/18 04:53 INR 1.5 09/13/18 04:53 APTT 39.9 SECONDS (21-34) H 09/13/18 04:53
[2018-09-18 07:30] LABS: EOS # 0.3 K/uL (0.0-0.7); HEMOGLOBIN 9.4 g/dL (12.0-18.0); LYMPH # 0.4 K/uL (1.0-4.3); MONO # 0.4 K/uL (0.0-0.8); RBC 2.77 Mil/uL (4.40-5.90); RED CELL DISTRIBUTION WIDTH 17.5 % (11.5-14.5); WHITE BLOOD COUNT 6.4 K/uL (4.8-10.8)
[2018-09-18 07:41] LABS: BASO % 0.4 % (0.0-2.0); EOS % 5.1 % (0.0-4.0); LYMPH % 6.7 % (20.0-40.0); MEAN CELL VOLUME 102.1 fL (80.0-94.0); MEAN CORPUSCULAR HEMOGLOBIN 34.1 pg (27.0-31.0); MEAN CORPUSCULAR HGB CONC 33.4 g/dL (33.0-37.0); MEAN PLATELET VOLUME 9.8 fL (7.2-11.7); MONO % 5.9 % (0.0-10.0); NEUT # 5.3 K/uL (1.8-7.0); NEUT % 81.9 % (50.0-75.0); NRBC % 0.3 % (0.0-2.0)
[2018-09-18 07:42] LABS: PLATELET COUNT 102 K/uL (130-400)
[2018-09-18 07:43] LABS: ALB/GLOB RATIO 0.8 (1.0-2.1); ALBUMIN 2.5 g/dL (3.5-5.0); CALCIUM 7.2 mg/dl (8.6-10.4)
[2018-09-18] MEDS: (Novolin R) Insulin Human Regular 100 units/ml vial SC SCH ×4 (08:05→21:42)
[2018-09-18 08:22] LABS: ANISOCYTOSIS SLIGHT; BANDS 1 % (0-2); EOSINOPHIL 3 % (0-4); LYMPHOCYTE 6 % (20-40); MONOCYTE 5 % (0-10); NEUTROPHIL 85 % (50-75); PLATELET ESTIMATE SLIGHTLY DECREASED (NORMAL); TOTAL CELLS COUNTED 100
[2018-09-18 08:23] LABS: TARGET CELLS SLIGHT
--- NOTE | 2018-09-18 08:48 | CP.PCM.PN ---
Subjective - Date & Time of Evaluation Date of Evaluation: 09/18/18 Time of Evaluation: 08:43 - Subjective Subjective: Progress note for Dr. Carpenter Patient was seen and examined at bedside in no acute distress. Patent reports feeling bloated, otherwise denies chest pain, palpitations, dyspnea, nausea, vomiting, fevers, headaches, leg pain and swelling. No acute events overnight. Per nursing this afternoon, patient had BRBPR. Objective - Vital Signs/Intake and Output Vital Signs (last 24 hours): Temp Pulse Resp BP Pulse Ox 98.4 F 80 20 109/57 L 93 L 09/18/18 07:05 09/18/18 07:05 09/18/18 07:05 09/18/18 07:05 09/18/18 07:05 Intake and Output: 09/18/18 09/18/18 06:59 18:59 Intake Total 100 Output Total 0 Balance 100 - Medications Medications: Current Medications Acetaminophen (Tylenol 325mg Tab) 650 mg PO Q6 PRN PRN Reason: Pain, Mild (1-3) Last Admin: 09/18/18 06:00 Dose: 650 mg Collagenase (Santyl) 1 gm TOP DAILY [facility] Last Admin: 09/16/18 10:43 Dose: 1 applic Dicyclomine HCl (Bentyl) 10 mg PO QID [facility] Last Admin: 09/17/18 21:47 Dose: 10 mg Famotidine (Pepcid) 20 mg PO DAILY [facility] Last Admin: 09/17/18 09:29 Dose: 20 mg Vancomycin HCl 1 gm/ Sodium (Chloride) 250 mls @ 166.7 mls/hr IVPB Q24H [facility]; Protocol Stop: 09/21/18 09:01 Insulin Human Regular (Novolin R) 0 unit SC ACHS [facility]; Protocol Last Admin: 09/18/18 08:05 Dose: 2 units Pantoprazole Sodium (Protonix Inj) 40 mg IVP Q12 [facility] Last Admin: 09/17/18 21:47 Dose: 40 mg Rosuvastatin Calcium (Crestor) 5 mg PO HS [facility] Last Admin: 09/17/18 21:47 Dose: 5 mg Sevelamer Carbonate (Renvela) 800 mg PO TIDCC [facility] Last Admin: 09/18/18 08:06 Dose: 800 mg Tamsulosin HCl (Flomax) 0.4 mg PO DAILY [facility] Last Admin: 09/17/18 09:29 Dose: 0.4 mg Vitamin B Complex/Vit C/Folic Acid (Nephro-Amita) 1 tab PO DAILY [facility] Last Admin: 09/17/18 09:29 Dose: 1 tab - Labs Labs: 09/18/18 07:23 09/18/18 07:23 PT 16.2 SECONDS (9.7-12.2) H 09/13/18 04:53 INR 1.5 09/13/18 04:53 APTT 39.9 SECONDS (21-34) H 09/13/18 04:53 - Additional Findings Additional findings: - Constitutional Appears: No Acute Distress, Cachectic, Chronically Ill - Head Exam Head Exam: absent: NORMAL INSPECTION (extensive bruising across face s/p fall) - Eye Exam Eye Exam: EOMI - ENT Exam ENT Exam: Mucous Membranes Moist - Respiratory Exam Respiratory Exam: Decreased Breath Sounds, NORMAL BREATHING PATTERN. absent: Rhonchi, Wheezes, Respiratory Distress - Cardiovascular Exam Cardiovascular Exam: Irregular Rhythm, +S1, +S2 - GI/Abdominal Exam GI & Abdominal Exam: Distended, Normal Bowel Sounds. absent: Soft, Tenderness - Extremities Exam Extremities Exam: bandages placed b/l, clean/dry/intact. absent: Pedal Edema, Tenderness - Neurological Exam Neurological Exam: Alert, Awake, Oriented x3 - Psychiatric Exam Psychiatric exam: Normal Mood - Skin Skin Exam: Dry, Warm Assessment and Plan - Assessment and Plan (Free Text) Plan: Bright Red Blood per Rectum - GI consulted - Dr. Beltran - 1 episode 09/15/18 AM- no episodes since. - Will f/u recommendations Management: - Eliquis stopped - Started Protonix 40mg IVP Q12 - Type and Screen, 2 PRBCs ordered, will transfuse if needed during dialysis (consent in chart) - CBC Q6Hs - Heparin to NOT be given during dialysis Pulmonary Hypertension Right-sided Heart Failure Hypotension - resolved - Hypotension improved; stable - Patient transferred out of ICU on 09/13/18 - BNP 34,900 (was >175,000 on 01/10/18) - Cardiology consulted - Dr. Dockery * Recommended repeat Echo and CTA to r/o pulmonary embolism(s) due to acute change in right sided heart failure as seen on ECHOs from 01/11/18 to 05/12/18 - Imaging: * Previous ECHO 05/12/2018: LV ~ 50%, Decreased R ventricle systolic function, dilated right ventricle (RVSP 64.25, was 38.04 on ECHO from 01/11/18) * Repeat ECHO: RVSP 60mmg, RA moderately dilated, RV moderately dilated, moderate to severe PHTN * CTA to r/o PE: negative for PE Ascites - Diagnostic paracentesis- negative for SBP - s/p therapeutic paracentesis with IR on 09/11/18 - Ascites likely 2/2 to right sided heart failure PAD Multiple Foot Ulcers - ID consulted, Dr. Bailey; help appreciated * Wound cultures (09/09/18) for left and right foot ulcer + for MRSA * Blood cultures (09/07/18) negative * Vancomycin 1gm MWF with dialysis, Santyl daily - Vascular surgery consulted --> no indications for any vascular surgery intervention at this time. - Podiatry consulted --> No plans for surgical intervention from podiatry standpoint at this time; Will continue with local wound care - Wound care consulted - Imaging: * CT Angio Abd w ileofem runoff performed 08/24 with evidence of bilateral common femoral and superficial femoral artery disease with reconstitution distally, patent popliteal and below knee arteries. ESRD on HD - MWF - Nephrology consulted, Dr. Lopes, help appreciated - Continue management as per nephrology Afib - Eliquis 2.5mg PO BID - HELD in light of rectal bleeding DM - Accuchecks, hypoglycemic protocol - ISS - Crestor 5mg PO QHS BPH - Flomax Prophylactic Measures - GI PPX: Protonix Q12 - DVT PPX: SCDs, VTE c/i - Patient is out of JOY days, when patient is discharged, it will be to home Disposition: Will monitor hemoglobin, transfuse as needed. Follow up GI recommendations. Case discussed with Dr. Jayden Disla, PGY2
--- NOTE | 2018-09-18 12:12 | CP.PCM.PN ---
Subjective - Date & Time of Evaluation Date of Evaluation: 09/18/18 Time of Evaluation: 12:10 - Subjective Subjective: seen at dialysis to UF 1000ml- tolerating despite chronic hypotension talkative before, now sleepy no overt GI bleeding Hg within acceptable range Objective - Vital Signs/Intake and Output Vital Signs (last 24 hours): Temp Pulse Resp BP Pulse Ox 97.5 F L 65 16 97/53 L 98 09/18/18 09:35 09/18/18 09:35 09/18/18 09:35 09/18/18 11:35 09/18/18 09:35 Intake and Output: 09/18/18 09/18/18 06:59 18:59 Intake Total 100 Output Total 0 Balance 100 - Medications Medications: Current Medications Acetaminophen (Tylenol 325mg Tab) 650 mg PO Q6 PRN PRN Reason: Pain, Mild (1-3) Last Admin: 09/18/18 06:00 Dose: 650 mg Collagenase (Santyl) 1 gm TOP DAILY [facility] Last Admin: 09/16/18 10:43 Dose: 1 applic Dicyclomine HCl (Bentyl) 10 mg PO QID [facility] Last Admin: 09/18/18 10:11 Dose: Not Given Famotidine (Pepcid) 20 mg PO DAILY [facility] Last Admin: 09/17/18 09:29 Dose: 20 mg Vancomycin HCl 1 gm/ Sodium (Chloride) 250 mls @ 166.7 mls/hr IVPB Q24H [facility]; Protocol Stop: 09/21/18 09:01 Insulin Human Regular (Novolin R) 0 unit SC ACHS [facility]; Protocol Last Admin: 09/18/18 08:05 Dose: 2 units Pantoprazole Sodium (Protonix Inj) 40 mg IVP Q12 [facility] Last Admin: 09/18/18 10:12 Dose: Not Given Rosuvastatin Calcium (Crestor) 5 mg PO HS [facility] Last Admin: 09/17/18 21:47 Dose: 5 mg Sevelamer Carbonate (Renvela) 800 mg PO TIDCC DON Last Admin: 09/18/18 08:06 Dose: 800 mg Tamsulosin HCl (Flomax) 0.4 mg PO DAILY [facility] Last Admin: 09/17/18 09:29 Dose: 0.4 mg Vitamin B Complex/Vit C/Folic Acid (Nephro-Amita) 1 tab PO DAILY [facility] Last Admin: 09/17/18 09:29 Dose: 1 tab - Labs Labs: 09/18/18 07:23 09/18/18 07:23 PT 16.2 SECONDS (9.7-12.2) H 09/13/18 04:53 INR 1.5 09/13/18 04:53 APTT 39.9 SECONDS (21-34) H 09/13/18 04:53 - Constitutional Appears: No Acute Distress, Chronically Ill - Head Exam Head Exam: ATRAUMATIC, NORMAL INSPECTION - Eye Exam Eye Exam: EOMI, Normal appearance - Neck Exam Neck Exam: Normal Inspection. absent: Tenderness - Respiratory Exam Respiratory Exam: Clear to Ausculation Bilateral, NORMAL BREATHING PATTERN - Cardiovascular Exam Cardiovascular Exam: Irregular Rhythm - Extremities Exam Extremities Exam: Normal Inspection. absent: Tenderness - Neurological Exam Neurological Exam: Awake, CN II-XII Intact - Skin Skin Exam: Dry, Warm Assessment and Plan (1) Atrial fibrillation Status: Acute (2) CHF (congestive heart failure) Status: Acute (3) Cardiomyopathy Status: Acute (4) Cellulitis of left lower leg Status: Acute (5) Confusion Status: Acute (6) Foot osteomyelitis Status: Acute (7) PAD (peripheral artery disease) Status: Acute (8) ESRD (end stage renal disease) on dialysis Status: Chronic - Assessment and Plan (Free Text) Plan: monitor for bleeding continue IV vanco dialysis MWF adequate UF goal
--- NOTE | 2018-09-18 13:17 | PN ---
DATE: 09/18/2018 LOCATION: 667, bed B. SUBJECTIVE: This is an 73-year-old male, seen and examined early in rounds for hemodialysis today without reported significant clinical changes or change of mental status, without reported actual chest pain, palpitation but periods of shortness of breath. The patient still have distended abdomen again with intermittent period of shortness of breath. The entire chart is reviewed including but not limited to the most recent lab and radiology study results, current and the previous medication list and today's hemoglobin dropped to 9.4, hematocrit 28.3 with thrombocytopenia of 102. Sodium 130, BUN 69, creatinine 4.9, blood glucose level 242, calcium 7.2, alkaline phosphatase 196, albumin 2.5, total protein 5.9. PHYSICAL EXAMINATION: GENERAL: A 73-year-old male. VITAL SIGNS: Afebrile with pulse of 68, respiratory rate 20 to 22, blood pressure of 88/54. HEENT: Showed pale, dry oral mucous membrane. Nonicteric sclerae. LUNGS: Few scattered crepitation. Decreased air entry at bases. HEART: Positive S1 and S2. ABDOMEN: Soft with mild generalized tenderness. No mass or organomegaly. No rebound tenderness or guarding. Positive for ascites and generalized tenderness. Bowel sounds are present. EXTREMITIES: With lower extremities mild edematous changes. No clubbing or cyanosis. NEUROLOGIC: No reported new neurological deficits, sensory or motor. IMPRESSION: 1. Arthritis. 2. Pleural effusion. 3. Hypochromic microcytic anemia secondary to chronic disease, most likely. 4. End-stage renal disease on hemodialysis. 5. Peripheral arterial disease associated with multiple foot ulcers. 6. Right-sided heart failure with pulmonary hypertension, most likely a main reason for his ascites. 7. Known history of atrial fibrillation, benign prostatic hypertrophy and diabetes mellitus. 8. Electrolyte imbalance secondary to above. SUGGESTIONS: 1. Continue current management. 2. Repeat abdominal paracentesis guided by ultrasound, to be done by the IR staff. 3. Thoracocentesis. 4. Further recommendation to follow. Samra Tyler MD
[2018-09-18] MEDS: Multivitamin Vitamin B Complex (Nephro-Vite) Tab PO SCH (14:08)
[2018-09-18] MEDS: Collagenase 250 Units/gm Ointment(30 gm) TOP SCH (14:33)
--- NOTE | 2018-09-18 14:52 | CP.PCM.PN ---
Subjective - Date & Time of Evaluation Date of Evaluation: 09/18/18 Time of Evaluation: 14:52 - Subjective Subjective: Podiatry Progress Note: Dr. Alfredo Cavanaugh 73 y/o male seen and evaluated today during dialysis. Pt sleeping at time of initial visit. Still reports bloating but has no other complaints at present. Patient denies any pain to the legs or feet. Offloading boots in place B/L. Denies any recent F/N/V/C/SOB. Objective - Vital Signs/Intake and Output Vital Signs (last 24 hours): Temp Pulse Resp BP Pulse Ox 97.2 F L 67 18 72/46 L 100 09/18/18 13:05 09/18/18 13:05 09/18/18 13:05 09/18/18 13:05 09/18/18 13:05 Intake and Output: 09/18/18 09/18/18 06:59 18:59 Intake Total 100 Output Total 0 Balance 100 - Medications Medications: Current Medications Acetaminophen (Tylenol 325mg Tab) 650 mg PO Q6 PRN PRN Reason: Pain, Mild (1-3) Last Admin: 09/18/18 06:00 Dose: 650 mg Collagenase (Santyl) 1 gm TOP DAILY [facility] Last Admin: 09/18/18 14:33 Dose: 1 applic Dicyclomine HCl (Bentyl) 10 mg PO QID [facility] Last Admin: 09/18/18 10:11 Dose: Not Given Famotidine (Pepcid) 20 mg PO DAILY [facility] Last Admin: 09/18/18 14:33 Dose: 20 mg Vancomycin HCl 1 gm/ Sodium (Chloride) 250 mls @ 166.7 mls/hr IVPB Q24H [facility]; Protocol Stop: 09/21/18 09:01 Last Admin: 09/18/18 14:10 Dose: 166.7 mls/hr Insulin Human Regular (Novolin R) 0 unit SC ACHS [facility]; Protocol Last Admin: 09/18/18 14:09 Dose: 1 units Pantoprazole Sodium (Protonix Inj) 40 mg IVP Q12 [facility] Last Admin: 09/18/18 10:12 Dose: Not Given Rosuvastatin Calcium (Crestor) 5 mg PO HS [facility] Last Admin: 09/17/18 21:47 Dose: 5 mg Sevelamer Carbonate (Renvela) 800 mg PO TIDCC [facility] Last Admin: 09/18/18 12:16 Dose: Not Given Tamsulosin HCl (Flomax) 0.4 mg PO DAILY [facility] Last Admin: 09/18/18 14:09 Dose: 0.4 mg Vitamin B Complex/Vit C/Folic Acid (Nephro-Amita) 1 tab PO DAILY [facility] Last Admin: 09/18/18 14:08 Dose: 1 tab - Labs Labs: 09/18/18 07:23 09/18/18 07:23 PT 16.2 SECONDS (9.7-12.2) H 09/13/18 04:53 INR 1.5 09/13/18 04:53 APTT 39.9 SECONDS (21-34) H 09/13/18 04:53 - Constitutional Appears: Well, Non-toxic, No Acute Distress - Extremities Exam Additional comments: Dressings to bilateral lower extremities in place- clean, dry and intact No strikethrough noted Pt able to wiggle toes without difficulty CFT delayed but present to digits Offloading boots in place to B/L lower extremities - Neurological Exam Neurological Exam: Alert, Awake, Oriented x3 - Psychiatric Exam Psychiatric exam: Normal Affect, Normal Mood Assessment and Plan - Assessment and Plan (Free Text) Assessment: 73 year old male patient with bilateral chronic lower extremity ulcerations, clinically infected with MRSA Plan: Patient seen and evaluated with Dr. Cavanaugh B/L foot x-rays: No evidence of acute displaced fracture nor dislocation. No definitive evidence of cortical destructive changes seen. Questionable surface ulceration medial aspect 1st digit with surrounding soft tissue swelling; rule out cellulitis. Consider follow-up MRI for further evaluation Wound sites flushed with saline and dressings to bilateral LE applied using Santyl, ABD, DSD Wound culture + for MRSA Continue IV abx as per ID recommendations Vascular consult, Dr. Macias B/L venous duplex: no evidence of DVT Abdominal angiogram (08/24): Right lower extremity: Scattered calcific and noncalcific plaque in the common femoral and superficial femoral arteries with area of focal severe stenosis due in the distal 1/3 segment of the superficial femoral artery. Patent popliteal artery and below-knee arteries. Left lower extremity: Scattered calcific and noncalcific plaque in the common femoral and superficial femoral arteries with short segment area of severe stenosis in the distal 1/3 segment. Patent popliteal artery. Moderate segment stenosis of the proximal posterior tibial artery, stable with distal reconstitution to the level of the ankle. Patent peroneal and anterior tibial arteries with scattered calcific plaque. FARRUKH/PVR (08/25): B/L Moderate infrapopliteal occlusive disease with medial arterial calcification No plans for surgical intervention from podiatry standpoint at this time Will continue with local wound care Podiatry will continue to follow patient while in house
--- NOTE | 2018-09-18 15:38 | CP.PCM.PCO ---
Assessment & Plan - Assessment and Plan (Free Text) Assessment: Called by nursing for rectal bleeding and blood seen in stool. Pt seen and evaluated at bedside, on rectal exam brown stool with internal hemorrhoid bleeding. No melena or hematocheiza. No reported hematemesis. Low BP during HD. Discussed results with Dr. Beltran and nursing staff. Will add suppositories for hemorrhoids. - Functional Status Prior to Admission: n/a Current Status: n/a Impairment Code: n/a
--- NOTE | 2018-09-19 00:19 | CP.PCM.PN ---
Subjective - Date & Time of Evaluation Date of Evaluation: 09/18/18 Time of Evaluation: 14:10 - Subjective Subjective: Patient seen and evaluated denies chest pain and dyspnea No new cardiac events noted Objective - Vital Signs/Intake and Output Vital Signs (last 24 hours): Temp Pulse Resp BP Pulse Ox 97.8 F 67 20 124/69 97 09/18/18 16:50 09/18/18 16:50 09/18/18 16:50 09/18/18 16:50 09/18/18 16:50 - Medications Medications: Current Medications Acetaminophen (Tylenol 325mg Tab) 650 mg PO Q6 PRN PRN Reason: Pain, Mild (1-3) Last Admin: 09/18/18 06:00 Dose: 650 mg Collagenase (Santyl) 1 gm TOP DAILY [facility] Last Admin: 09/18/18 14:33 Dose: 1 applic Dicyclomine HCl (Bentyl) 10 mg PO QID [facility] Last Admin: 09/18/18 22:07 Dose: 10 mg Famotidine (Pepcid) 20 mg PO DAILY [facility] Last Admin: 09/18/18 14:33 Dose: 20 mg Vancomycin HCl 1 gm/ Sodium (Chloride) 250 mls @ 166.7 mls/hr IVPB Q24H [facility]; Protocol Stop: 09/21/18 09:01 Last Admin: 09/18/18 14:10 Dose: 166.7 mls/hr Insulin Human Regular (Novolin R) 0 unit SC ACHS [facility]; Protocol Last Admin: 09/18/18 21:42 Dose: Not Given Mesalamine (Canasa) 1,000 mg MN HS [facility] Stop: 10/01/18 22:01 Last Admin: 09/18/18 22:07 Dose: 1,000 mg Pantoprazole Sodium (Protonix Inj) 40 mg IVP Q12 [facility] Last Admin: 09/18/18 22:06 Dose: 40 mg Rosuvastatin Calcium (Crestor) 5 mg PO HS [facility] Last Admin: 09/18/18 22:07 Dose: 5 mg Sevelamer Carbonate (Renvela) 800 mg PO TIDCC [facility] Last Admin: 09/18/18 17:44 Dose: 800 mg Tamsulosin HCl (Flomax) 0.4 mg PO DAILY [facility] Last Admin: 09/18/18 14:09 Dose: 0.4 mg Vitamin B Complex/Vit C/Folic Acid (Nephro-Amita) 1 tab PO DAILY [facility] Last Admin: 09/18/18 14:08 Dose: 1 tab - Labs Labs: 09/18/18 07:23 09/18/18 07:23 PT 16.2 SECONDS (9.7-12.2) H 09/13/18 04:53 INR 1.5 09/13/18 04:53 APTT 39.9 SECONDS (21-34) H 09/13/18 04:53
[2018-09-19 06:47] LABS: BASO % 0.3 % (0.0-2.0); EOS # 0.4 K/uL (0.0-0.7); EOS % 5.6 % (0.0-4.0); HEMOGLOBIN 8.9 g/dL (12.0-18.0); LYMPH # 0.6 K/uL (1.0-4.3); LYMPH % 9.8 % (20.0-40.0); MEAN CELL VOLUME 102.6 fL (80.0-94.0); MEAN CORPUSCULAR HEMOGLOBIN 33.6 pg (27.0-31.0); MEAN CORPUSCULAR HGB CONC 32.8 g/dL (33.0-37.0); MEAN PLATELET VOLUME 9.7 fL (7.2-11.7); MONO # 0.6 K/uL (0.0-0.8); MONO % 8.3 % (0.0-10.0); NRBC % 0.1 % (0.0-2.0); PLATELET COUNT 97 K/uL (130-400); RBC 2.64 Mil/uL (4.40-5.90); RED CELL DISTRIBUTION WIDTH 17.3 % (11.5-14.5); WHITE BLOOD COUNT 6.6 K/uL (4.8-10.8)
[2018-09-19 07:34] LABS: ALB/GLOB RATIO 0.7 (1.0-2.1); ALBUMIN 2.5 g/dL (3.5-5.0); CALCIUM 7.2 mg/dl (8.6-10.4)
--- NOTE | 2018-09-19 07:54 | CP.PCM.PN ---
Subjective - Date & Time of Evaluation Date of Evaluation: 09/19/18 Time of Evaluation: 07:52 - Subjective Subjective: Progress note for Dr. Carpenter Patient was seen and examined at bedside in no acute distress. Patent reports feeling bloated, otherwise denies chest pain, palpitations, dyspnea, nausea, vomiting, fevers, headaches, leg pain and swelling. No acute events overnight. Objective - Vital Signs/Intake and Output Vital Signs (last 24 hours): Temp Pulse Resp BP Pulse Ox 98.0 F 76 20 138/80 99 09/19/18 04:21 09/19/18 04:21 09/19/18 04:21 09/19/18 04:21 09/19/18 04:21 Intake and Output: 09/19/18 09/19/18 06:59 18:59 Intake Total 100 Output Total 0 Balance 100 - Medications Medications: Current Medications Acetaminophen (Tylenol 325mg Tab) 650 mg PO Q6 PRN PRN Reason: Pain, Mild (1-3) Last Admin: 09/18/18 06:00 Dose: 650 mg Collagenase (Santyl) 1 gm TOP DAILY DON Last Admin: 09/18/18 14:33 Dose: 1 applic Dicyclomine HCl (Bentyl) 10 mg PO QID DON Last Admin: 09/18/18 22:07 Dose: 10 mg Famotidine (Pepcid) 20 mg PO DAILY DON Last Admin: 09/18/18 14:33 Dose: 20 mg Vancomycin HCl 1 gm/ Sodium (Chloride) 250 mls @ 166.7 mls/hr IVPB Q24H DON; P rotocol Stop: 09/21/18 09:01 Last Admin: 09/18/18 14:10 Dose: 166.7 mls/hr Insulin Human Regular (Novolin R) 0 unit SC ACHS DON; Protocol Last Admin: 09/18/18 21:42 Dose: Not Given Mesalamine (Canasa) 1,[address] HS DON Stop: 10/01/18 22:01 Last Admin: 09/18/18 22:07 Dose: 1,000 mg Pantoprazole Sodium (Protonix Inj) 40 mg IVP Q12 DON Last Admin: 09/18/18 22:06 Dose: 40 mg Rosuvastatin Calcium (Crestor) 5 mg PO HS DON Last Admin: 09/18/18 22:07 Dose: 5 mg Sevelamer Carbonate (Renvela) 800 mg PO TIDCC [facility] Last Admin: 09/18/18 17:44 Dose: 800 mg Tamsulosin HCl (Flomax) 0.4 mg PO DAILY [facility] Last Admin: 09/18/18 14:09 Dose: 0.4 mg Vitamin B Complex/Vit C/Folic Acid (Nephro-Amita) 1 tab PO DAILY [facility] Last Admin: 09/18/18 14:08 Dose: 1 tab - Labs Labs: 09/19/18 06:35 09/19/18 06:35 PT 16.2 SECONDS (9.7-12.2) H 09/13/18 04:53 INR 1.5 09/13/18 04:53 APTT 39.9 SECONDS (21-34) H 09/13/18 04:53 - Head Exam Head Exam: ATRAUMATIC, NORMAL INSPECTION - Eye Exam Eye Exam: EOMI, PERRL Pupil Exam: NORMAL ACCOMODATION, PERRL. absent: Irregular, Unequal - ENT Exam ENT Exam: Mucous Membranes Moist, Normal Oropharynx - Neck Exam Neck Exam: Normal Inspection - Respiratory Exam Respiratory Exam: Clear to Ausculation Bilateral, NORMAL BREATHING PATTERN - Cardiovascular Exam Cardiovascular Exam: REGULAR RHYTHM, +S1. absent: Gallop, Rubs - GI/Abdominal Exam GI & Abdominal Exam: Soft, Normal Bowel Sounds. absent: Rigid, Hyperactive Bowel Sounds - Extremities Exam Extremities Exam: Full ROM. absent: Pedal Edema - Back Exam Back Exam: NORMAL INSPECTION. absent: CVA tenderness (R), paraspinal tenderness - Neurological Exam Neurological Exam: Alert, Awake, CN II-XII Intact, Oriented x3 - Psychiatric Exam Psychiatric exam: Normal Affect, Normal Mood. absent: Depressed - Skin Skin Exam: Dry, Intact, Normal Color. absent: Diaphoretic, Petechiae Assessment and Plan - Assessment and Plan (Free Text) Plan: Plan: Bright Red Blood per Rectum - GI consulted - Dr. Beltran - 1 episode 09/15/18 AM- no episodes since. - Will f/u recommendations Management: - Eliquis stopped - Started Protonix 40mg IVP Q12 - Type and Screen, 2 PRBCs ordered, will transfuse if needed during dialysis (consent in chart) - CBC Q6Hs - Heparin to NOT be given during dialysis Pulmonary Hypertension Right-sided Heart Failure Hypotension - resolved - Hypotension improved; stable - Patient transferred out of ICU on 09/13/18 - BNP 34,900 (was >175,000 on 01/10/18) - Cardiology consulted - Dr. Dockery Recommended repeat Echo and CTA to r/o pulmonary embolism(s) due to acute change in right sided heart failure as seen on ECHOs from 01/11/18 to 05/12/18 - Imaging: Previous ECHO 05/12/2018: LV ~ 50%, Decreased R ventricle systolic function, dilated right ventricle (RVSP 64.25, was 38.04 on ECHO from 01/11/18) Repeat ECHO: RVSP 60mmg, RA moderately dilated, RV moderately dilated, moderate to severe PHTN CTA to r/o PE: negative for PE Ascites - Diagnostic paracentesis- negative for SBP - s/p therapeutic paracentesis with IR on 09/11/18 - Ascites likely 2/2 to right sided heart failure PAD Multiple Foot Ulcers - ID consulted, Dr. Bailey; help appreciated Wound cultures (09/09/18) for left and right foot ulcer + for MRSA Blood cultures (09/07/18) negative Vancomycin 1gm MWF with dialysis, Santyl daily - Vascular surgery consulted --> no indications for any vascular surgery intervention at this time. - Podiatry consulted --> No plans for surgical intervention from podiatry standpoint at this time; Will continue with local wound care - Wound care consulted - Imaging: CT Angio Abd w ileofem runoff performed 08/24 with evidence of bilateral common femoral and superficial femoral artery disease with reconstitution distally, patent popliteal and below knee arteries. ESRD on HD - MWF - Nephrology consulted, Dr. Lopes, help appreciated - Continue management as per nephrology Afib - Eliquis 2.5mg PO BID - HELD in light of rectal bleeding DM - Accuchecks, hypoglycemic protocol - ISS - Crestor 5mg PO QHS BPH - Flomax Prophylactic Measures - GI PPX: Protonix Q12 - DVT PPX: SCDs, VTE c/i - Patient is out of JOY days, when patient is discharged, it will be to home Disposition: Patient will need 8 weeks of IV antibiotics per ID that can be set up with Hemodialysis via [facility] pending approval from Nephrology. Case discussed with Dr. Carpenter
[2018-09-19 08:17] LABS: ANISOCYTOSIS SLIGHT; EOSINOPHIL 4 % (0-4); LYMPHOCYTE 8 % (20-40); MONOCYTE 6 % (0-10); NEUTROPHIL 82 % (50-75); PLATELET ESTIMATE DECREASED (NORMAL); TOTAL CELLS COUNTED 100
[2018-09-19] MEDS: (Novolin R) Insulin Human Regular 100 units/ml vial SC SCH ×4 (08:18→22:42)
[2018-09-19 08:19] LABS: OVALOCYTES SLIGHT; TARGET CELLS SLIGHT
--- NOTE | 2018-09-19 08:53 | PN ---
DATE: 09/19/2018 LOCATION: 667, bed B. SUBJECTIVE: With recently reported episode of rectal bleeding x1, with bowel movement, seen and evaluated by myself yesterday, then subsequently seen by the GI fellow, Dr. Hurtado, no reported active bleeding this morning. The entire chart is reviewed including but not limited to the most recent lab and radiology study results, current and previous medication list; and today's lab result showed normal white blood cells, but low hemoglobin of 8.9, hematocrit 27.1 with low indices highly suggestive of hypochromic microcytic anemia. Rest of the lab results, however, is pending. PHYSICAL EXAMINATION: GENERAL: A 73-year-old male. VITAL SIGNS: Afebrile with pulse of 74, blood pressure of 140/78, respiratory rate 20-22. HEENT: Showed pale dry oral mucous membrane. Nonicteric sclerae. LUNGS: Few scattered crepitation, decreased air entry at bases. HEART: Positive S1 and S2. ABDOMEN: Soft with moderate distention, positive for ascites with hypoactive bowel sounds. EXTREMITIES: Lower extremities with mild edematous changes. No clubbing or cyanosis. Lower extremities, ulceration also seen covered with Kevin dressing. RECTAL: Patient refused. No reported new focal deficit, no reported new neurological deficit, sensory or motor. The patient denied any episode of hematemesis or actual vomiting. IMPRESSION: 1. Hypochromic microcytic anemia, most likely secondary to chronic disease, however, patient had episode of mild rectal bleeding most likely secondary to internal hemorrhoids. 2. Ascites believed to be secondary to right heart failure. 3. Refractory pleural effusion bilaterally. 4. End-stage renal disease, on hemodialysis. 5. Peripheral arterial disease by history. 6. Known history of pulmonary hypertension, right side heart failure with known history of atrial fibrillation, benign prostatic hypertrophy, and poorly controlled diabetes mellitus. SUGGESTIONS: 1. Continue current management. 2. Canasa suppository 1 g one for the following four weeks. 3. Anusol cream HC rectal apply twice a day. 4. Further recommendation to follow. The patient will need abdominal paracentesis guided by ultrasound as well as thoracentesis which could be done through the IR staff. We will follow up closely with you. Samra Tyler MD [facility] # [id number]
[2018-09-19] MEDS: Collagenase 250 Units/gm Ointment(30 gm) TOP SCH (09:39)
[2018-09-19] MEDS: Multivitamin Vitamin B Complex (Nephro-Vite) Tab PO SCH (09:39)
--- NOTE | 2018-09-19 10:24 | CP.PCM.PN ---
Subjective - Date & Time of Evaluation Date of Evaluation: 09/19/18 Time of Evaluation: 10:25 - Subjective Subjective: hb 9.4-8.9 bp stable afebrile chems noted comfortable supine in bed ROS no facial pain no headache dizziness no visual disturbance no chest pain no sob,cough no abd pain,n,v,d anuric no pain rt foot no back pain Objective - Vital Signs/Intake and Output Vital Signs (last 24 hours): Temp Pulse Resp BP Pulse Ox 97.7 F 72 18 126/68 100 09/19/18 08:34 09/19/18 08:34 09/19/18 08:34 09/19/18 08:34 09/19/18 08:34 Intake and Output: 09/19/18 09/19/18 06:59 18:59 Intake Total 100 Output Total 0 Balance 100 - Medications Medications: Current Medications Acetaminophen (Tylenol 325mg Tab) 650 mg PO Q6 PRN PRN Reason: Pain, Mild (1-3) Last Admin: 09/18/18 06:00 Dose: 650 mg Collagenase (Santyl) 1 gm TOP DAILY [facility] Last Admin: 09/19/18 09:39 Dose: 1 applic Dicyclomine HCl (Bentyl) 10 mg PO QID [facility] Last Admin: 09/19/18 09:39 Dose: 10 mg Famotidine (Pepcid) 20 mg PO DAILY [facility] Last Admin: 09/19/18 09:39 Dose: 20 mg Vancomycin HCl 1 gm/ Sodium (Chloride) 250 mls @ 166.7 mls/hr IVPB Q24H DON; Protocol Stop: 09/21/18 09:01 Last Admin: 09/19/18 08:18 Dose: 166.7 mls/hr Insulin Human Regular (Novolin R) 0 unit SC ACHS DON; Protocol Last Admin: 09/19/18 08:18 Dose: 1 units Mesalamine (Canasa) 1,000 mg [place] HS DON Stop: 10/01/18 22:01 Last Admin: 09/18/18 22:07 Dose: 1,000 mg Pantoprazole Sodium (Protonix Inj) 40 mg IVP Q12 DON Last Admin: 09/19/18 09:39 Dose: 40 mg Rosuvastatin Calcium (Crestor) 5 mg PO HS [facility] Last Admin: 09/18/18 22:07 Dose: 5 mg Sevelamer Carbonate (Renvela) 800 mg PO TIDCC [facility] Last Admin: 09/19/18 08:18 Dose: 800 mg Tamsulosin HCl (Flomax) 0.4 mg PO DAILY [facility] Last Admin: 09/19/18 09:39 Dose: 0.4 mg Vitamin B Complex/Vit C/Folic Acid (Nephro-Amita) 1 tab PO DAILY [facility] Last Admin: 09/19/18 09:39 Dose: 1 tab - Labs Labs: 09/19/18 06:35 09/19/18 06:35 PT 16.2 SECONDS (9.7-12.2) H 09/13/18 04:53 INR 1.5 09/13/18 04:53 APTT 39.9 SECONDS (21-34) H 09/13/18 04:53 - Constitutional Appears: No Acute Distress, Cachectic - Head Exam Head Exam: ATRAUMATIC, NORMOCEPHALIC - ENT Exam ENT Exam: Mucous Membranes Moist - Neck Exam Neck Exam: absent: Lymphadenopathy - Respiratory Exam Respiratory Exam: Clear to Ausculation Bilateral, NORMAL BREATHING PATTERN - Cardiovascular Exam Cardiovascular Exam: REGULAR RHYTHM. absent: JVD - GI/Abdominal Exam GI & Abdominal Exam: Soft. absent: Distended, Tenderness - Extremities Exam Extremities Exam: absent: Calf Tenderness, Pedal Edema Additional comments: feet in boots rt foot bandaged - Neurological Exam Neurological Exam: Alert, Awake - Psychiatric Exam Psychiatric exam: Flat Affect - Skin Skin Exam: Dry, Warm Assessment and Plan (1) Ascites Status: Acute (2) Atrial fibrillation Status: Acute (3) CHF (congestive heart failure) Status: Acute (4) Cardiomyopathy Status: Acute (5) Cellulitis of left lower leg Status: Acute (6) Foot osteomyelitis Status: Acute (7) PAD (peripheral artery disease) Status: Acute (8) Type 2 diabetes mellitus with diabetic nephropathy Status: Acute (9) ESRD on hemodialysis Assessment & Plan: schedule dialysis for 09/20 orders written mild ultrafiltration contniue supportive care Status: Chronic
--- NOTE | 2018-09-19 10:58 | CP.PCM.PN ---
Subjective - Date & Time of Evaluation Date of Evaluation: 09/19/18 Time of Evaluation: 10:58 - Subjective Subjective: Podiatry Progress Note: Dr. Alfredo Cavanaugh 73 y/o male seen and evaluated in dialysis today with attending Dr. Cavanaugh. Pt resting comfortably in bed at time of visit. Has no pedal complaints. Dressings remain in place. Offloading boots not on at time of visit. Denies any recent F/N/V/C/SOB. Objective - Vital Signs/Intake and Output Vital Signs (last 24 hours): Temp Pulse Resp BP Pulse Ox 97.7 F 72 18 126/68 100 09/19/18 08:34 09/19/18 08:34 09/19/18 08:34 09/19/18 08:34 09/19/18 08:34 Intake and Output: 09/19/18 09/19/18 06:59 18:59 Intake Total 100 Output Total 0 Balance 100 - Medications Medications: Current Medications Acetaminophen (Tylenol 325mg Tab) 650 mg PO Q6 PRN PRN Reason: Pain, Mild (1-3) Last Admin: 09/18/18 06:00 Dose: 650 mg Collagenase (Santyl) 1 gm TOP DAILY [facility] Last Admin: 09/19/18 09:39 Dose: 1 applic Dicyclomine HCl (Bentyl) 10 mg PO QID [facility] Last Admin: 09/19/18 09:39 Dose: 10 mg Famotidine (Pepcid) 20 mg PO DAILY [facility] Last Admin: 09/19/18 09:39 Dose: 20 mg Vancomycin HCl 1 gm/ Sodium (Chloride) 250 mls @ 166.7 mls/hr IVPB Q24H DON; Protocol Stop: 09/21/18 09:01 Last Admin: 09/19/18 08:18 Dose: 166.7 mls/hr Insulin Human Regular (Novolin R) 0 unit SC ACHS DON; Protocol Last Admin: 09/19/18 08:18 Dose: 1 units Mesalamine (Canasa) 1,000 mg [place] HS DON Stop: 10/01/18 22:01 Last Admin: 09/18/18 22:07 Dose: 1,000 mg Pantoprazole Sodium (Protonix Inj) 40 mg IVP Q12 DON Last Admin: 09/19/18 09:39 Dose: 40 mg Rosuvastatin Calcium (Crestor) 5 mg PO HS DON Last Admin: 09/18/18 22:07 Dose: 5 mg Sevelamer Carbonate (Renvela) 800 mg PO TIDCC [facility] Last Admin: 09/19/18 08:18 Dose: 800 mg Tamsulosin HCl (Flomax) 0.4 mg PO DAILY [facility] Last Admin: 09/19/18 09:39 Dose: 0.4 mg Vitamin B Complex/Vit C/Folic Acid (Nephro-Amita) 1 tab PO DAILY [facility] Last Admin: 09/19/18 09:39 Dose: 1 tab - Labs Labs: 09/19/18 06:35 09/19/18 06:35 PT 16.2 SECONDS (9.7-12.2) H 09/13/18 04:53 INR 1.5 09/13/18 04:53 APTT 39.9 SECONDS (21-34) H 09/13/18 04:53 - Constitutional Appears: Well, Non-toxic, No Acute Distress - Extremities Exam Additional comments: Dressings to bilateral lower extremities in place- clean, dry and intact No strikethrough noted Pt able to wiggle toes without difficulty CFT delayed but present to digits Offloading boots set aside, not in place - Neurological Exam Neurological Exam: Alert, Oriented x3 - Psychiatric Exam Psychiatric exam: Normal Affect, Normal Mood Assessment and Plan - Assessment and Plan (Free Text) Assessment: 73 year old male patient with bilateral chronic lower extremity ulcerations, clinically infected with MRSA Plan: Patient seen and evaluated with Dr. Cavanaugh B/L foot x-rays show no evidence of acute displaced fracture nor dislocation. No definitive evidence of cortical destructive changes seen. Questionable surface ulceration medial aspect 1st digit with surrounding soft tissue swelling; rule o ut cellulitis. Consider follow-up MRI for further evaluation Wound sites flushed with saline and dressings to bilateral LE applied using Santyl, ABD, DSD Wound culture + for MRSA Continue IV abx as per ID recommendations Vascular consult, Dr. Macias B/L venous duplex: no evidence of DVT Abdominal angiogram (08/24): RLE: Scattered calcific and noncalcific plaque in the common femoral and superficial femoral arteries with area of focal severe stenosis due in the distal 1/3 segment of the superficial femoral artery. Patent popliteal artery and below-knee arteries. LLE: Scattered calcific and noncalcific plaque in the common femoral and superficial femoral arteries with short segment area of severe stenosis in the distal 1/3 segment. Patent popliteal artery. Moderate segment stenosis of the proximal posterior tibial artery, stable with distal reconstitution to the level of the ankle. Patent peroneal and anterior tibial arteries with scattered calcific plaque. FARRUKH/PVR (08/25): B/L Moderate infrapopliteal occlusive disease with medial arterial calcification No plans for surgical intervention from podiatry standpoint at this time Will continue with local wound care Podiatry will continue to follow patient while in house
--- NOTE | 2018-09-19 14:21 | CP.PCM.PN ---
<Albert Chester - Last Filed: 09/19/18 14:19> Subjective - Date & Time of Evaluation Date of Evaluation: 09/19/18 Time of Evaluation: 10:45 - Subjective Subjective: PGY2 Cardiology note for Dr. Dockery Patient seen and examined this morning at bedside. Patient had bright red blood per rectum yesterday and was diagnosed with hemorrhoids. He was unable to sleep all night due to discomfort. He is currently feeling better and has no complaints. Denies any chest pain or shortness of breath. Objective - Vital Signs/Intake and Output Vital Signs (last 24 hours): Temp Pulse Resp BP Pulse Ox 97.7 F 72 18 126/68 100 09/19/18 08:34 09/19/18 08:34 09/19/18 08:34 09/19/18 08:34 09/19/18 08:34 Intake and Output: 09/19/18 09/19/18 06:59 18:59 Intake Total 100 Output Total 0 Balance 100 - Medications Medications: Current Medications Acetaminophen (Tylenol 325mg Tab) 650 mg PO Q6 PRN PRN Reason: Pain, Mild (1-3) Last Admin: 09/18/18 06:00 Dose: 650 mg Collagenase (Santyl) 1 gm TOP DAILY [facility] Last Admin: 09/19/18 09:39 Dose: 1 applic Dicyclomine HCl (Bentyl) 10 mg PO QID [facility] Last Admin: 09/19/18 13:46 Dose: 10 mg Famotidine (Pepcid) 20 mg PO DAILY [facility] Last Admin: 09/19/18 09:39 Dose: 20 mg Vancomycin HCl 1 gm/ Sodium (Chloride) 250 mls @ 166.7 mls/hr IVPB Q24H DON; Protocol Stop: 09/21/18 09:01 Last Admin: 09/19/18 08:18 Dose: 166.7 mls/hr Insulin Human Regular (Novolin R) 0 unit SC ACHS DON; Protocol Last Admin: 09/19/18 11:59 Dose: 3 units Mesalamine (Canasa) 1,000 mg [place] HS DON Stop: 10/01/18 22:01 Last Admin: 09/18/18 22:07 Dose: 1,000 mg Pantoprazole Sodium (Protonix Inj) 40 mg IVP Q12 DON Last Admin: 09/19/18 09:39 Dose: 40 mg Rosuvastatin Calcium (Crestor) 5 mg PO HS [facility] Last Admin: 09/18/18 22:07 Dose: 5 mg Sevelamer Carbonate (Renvela) 800 mg PO TIDCC [facility] Last Admin: 09/19/18 12:04 Dose: 800 mg Tamsulosin HCl (Flomax) 0.4 mg PO DAILY [facility] Last Admin: 09/19/18 09:39 Dose: 0.4 mg Vitamin B Complex/Vit C/Folic Acid (Nephro-Amita) 1 tab PO DAILY [facility] Last Admin: 09/19/18 09:39 Dose: 1 tab - Labs Labs: 09/19/18 06:35 09/19/18 06:35 PT 16.2 SECONDS (9.7-12.2) H 09/13/18 04:53 INR 1.5 09/13/18 04:53 APTT 39.9 SECONDS (21-34) H 09/13/18 04:53 - Additional Findings Additional findings: - Constitutional Appears: Cachectic, Chronically Ill - Head Exam Additional comments: healing ecchymosis across entire face - Eye Exam Eye Exam: EOMI - ENT Exam ENT Exam: Mucous Membranes Moist - Neck Exam Neck exam: Negative for: Lymphadenopathy, Tenderness - Respiratory Exam Respiratory Exam: Decreased Breath Sounds, NORMAL BREATHING PATTERN. absent: Accessory Muscle Use, Rales, Rhonchi, Wheezes, Respiratory Distress - Cardiovascular Exam Cardiovascular Exam: REGULAR RHYTHM, +S1, +S2 - GI/Abdominal Exam GI & Abdominal Exam: Soft. absent: Distended, Firm, Guarding, Rigid, Tenderness - Extremities Exam Extremities exam: Negative for: calf tenderness, pedal edema Additional comments: pressure ulcer boots in place b/l AV fistula on right arm - Neurological Exam Neurological exam: Alert, Oriented x3 - Psychiatric Exam Psychiatric exam: Normal Affect, Normal Mood - Skin Skin Exam: Dry, Warm Assessment and Plan - Assessment and Plan (Free Text) Plan: Pulmonary Hypertension of Unknown Etiology Right-sided Heart Failure Hypotension Denies any chest pain or previous cardiac history previous ECHO 05/12/2018: LV ~ 50%, Decreased R ventricle systolic function, dilated right ventricle (RVSP 64.25, was 38.04 on ECHO from 01/11/18) * repeat ECHO pending to re-assess pulmonary HTN Recommend CTA to r/o pulmonary embolism(s) due to acute change in right sided heart failure as seen on ECHOs from 01/11/18 to 05/12/18. BNP 34,900 (was >175,000 on 01/10/18) Continue current medical management PAD Foot Ulcers Wound Infection - MRSA+ Vascular surgery consulted * no indications for any vascular surgery intervention at this time. ID consulted Wound care consulted CT Angio Abd w ileofem runoff performed 08/24 with evidence of bilateral common femoral and superfical femoral artery disease with reconstitution distally, patent popliteal and below knee arteries. Wound cultures (09/09/18) for left and right foot ulcer + for MRSA Blood cultures (09/07/18) negative abx as per ID Ascities GI consulted Paracentsis negative for SBP Ascities likely 2/2 to right sided heart failure Afib continue eliquis ESRD on HD Nephrology consulted continue management as per nephrology DISPO: Patient is stable from cardiac standpoint. Continue current medication regiment. Case discussed with Dr. Sarkis Chester PGY2 <Oz Dockery - Last Filed: 09/19/18 23:21> Objective - Vital Signs/Intake and Output Vital Signs (last 24 hours): Temp Pulse Resp BP Pulse Ox 97.5 F L 69 18 116/66 96 09/19/18 16:00 09/19/18 16:00 09/19/18 16:00 09/19/18 16:00 09/19/18 16:00 - Medications Medications: Current Medications Acetaminophen (Tylenol 325mg Tab) 650 mg PO Q6 PRN PRN Reason: Pain, Mild (1-3) Last Admin: 09/18/18 06:00 Dose: 650 mg Collagenase (Santyl) 1 gm TOP DAILY [facility] Last Admin: 09/19/18 09:39 Dose: 1 applic Dicyclomine HCl (Bentyl) 10 mg PO QID [facility] Last Admin: 09/19/18 22:41 Dose: 10 mg Famotidine (Pepcid) 20 mg PO DAILY [facility] Last Admin: 09/19/18 09:39 Dose: 20 mg Vancomycin HCl 1 gm/ Sodium (Chloride) 250 mls @ 166.7 mls/hr IVPB Q24H [facility]; Protocol Stop: 09/21/18 09:01 Last Admin: 09/19/18 08:18 Dose: 166.7 mls/hr Insulin Human Regular (Novolin R) 0 unit SC ACHS [facility]; Protocol Last Admin: 09/19/18 22:42 Dose: Not Given Mesalamine (Canasa) 1,000 mg [place] HS DON Stop: 10/01/18 22:01 Last Admin: 09/19/18 22:42 Dose: 1,000 mg Pantoprazole Sodium (Protonix Inj) 40 mg IVP Q12 [facility] Last Admin: 09/19/18 22:41 Dose: 40 mg Rosuvastatin Calcium (Crestor) 5 mg PO HS [facility] Last Admin: 09/19/18 22:41 Dose: 5 mg Sevelamer Carbonate (Renvela) 800 mg PO TIDCC [facility] Last Admin: 09/19/18 17:37 Dose: 800 mg Tamsulosin HCl (Flomax) 0.4 mg PO DAILY [facility] Last Admin: 09/19/18 09:39 Dose: 0.4 mg Vitamin B Complex/Vit C/Folic Acid (Nephro-Amita) 1 tab PO DAILY [facility] Last Admin: 09/19/18 09:39 Dose: 1 tab - Labs Labs: 09/19/18 06:35 09/19/18 06:35 PT 16.2 SECONDS (9.7-12.2) H 09/13/18 04:53 INR 1.5 09/13/18 04:53 APTT 39.9 SECONDS (21-34) H 09/13/18 04:53 Assessment and Plan - Assessment and Plan (Free Text) Plan: Patient seen and evaluated personally by me. Plan of care d/w the medical staff services manager and as documented
[2018-09-20] MEDS: (Novolin R) Insulin Human Regular 100 units/ml vial SC SCH ×3 (08:24→19:35)
--- NOTE | 2018-09-20 09:42 | CP.PCM.PN ---
Subjective - Date & Time of Evaluation Date of Evaluation: 09/20/18 Time of Evaluation: 09:42 - Subjective Subjective: Podiatry Progress Note - Dr. Alfredo Cavanaugh 73 y/o male seen and evaluated at bedside this morning for lower extremity chronic ulcerations. Offloading boots are not on at time of visit. Pt resting in bed, alert and awake. Denies any pedal complaints today. Has no new complaints. Says the bloating remains the same. Denies F/C/N/V/CP/SOB Objective - Vital Signs/Intake and Output Vital Signs (last 24 hours): Temp Pulse Resp BP Pulse Ox 97.9 F 76 20 125/64 96 09/19/18 23:15 09/19/18 23:15 09/19/18 23:15 09/19/18 23:15 09/19/18 23:15 - Medications Medications: Current Medications Acetaminophen (Tylenol 325mg Tab) 650 mg PO Q6 PRN PRN Reason: Pain, Mild (1-3) Last Admin: 09/18/18 06:00 Dose: 650 mg Collagenase (Santyl) 1 gm TOP [facility] Last Admin: 09/19/18 09:39 Dose: 1 applic Dicyclomine HCl (Bentyl) 10 mg PO QID DON Last Admin: 09/19/18 22:41 Dose: 10 mg Famotidine (Pepcid) 20 mg PO DAILY [facility] Last Admin: 09/19/18 09:39 Dose: 20 mg Vancomycin HCl 1 gm/ Sodium (Chloride) 250 mls @ 166.7 mls/hr IVPB Q24H DON; Protocol Stop: 09/21/18 09:01 Last Admin: 09/19/18 08:18 Dose: 166.7 mls/hr Insulin Human Regular (Novolin R) 0 unit SC ACHS DON; Protocol Last Admin: 09/20/18 08:24 Dose: Not Given Mesalamine (Canasa) 1,000 mg MA HS DON Stop: 10/01/18 22:01 Last Admin: 09/19/18 22:42 Dose: 1,000 mg Pantoprazole Sodium (Protonix Inj) 40 mg IVP Q12 DON Last Admin: 09/19/18 22:41 Dose: 40 mg Rosuvastatin Calcium (Crestor) 5 mg PO HS DON Last Admin: 09/19/18 22:41 Dose: 5 mg Sevelamer Carbonate (Renvela) 800 mg PO [facility] Last Admin: 09/20/18 08:40 Dose: 800 mg Tamsulosin HCl (Flomax) 0.4 mg PO DAILY [facility] Last Admin: 09/19/18 09:39 Dose: 0.4 mg Vitamin B Complex/Vit C/Folic Acid (Nephro-Amita) 1 tab PO DAILY [facility] Last Admin: 09/19/18 09:39 Dose: 1 tab - Labs Labs: 09/19/18 06:35 09/19/18 06:35 PT 16.2 SECONDS (9.7-12.2) H 09/13/18 04:53 INR 1.5 09/13/18 04:53 APTT 39.9 SECONDS (21-34) H 09/13/18 04:53 - Extremities Exam Additional comments: B/L Lower extremity focused exam: VASC: DP/PT pulses are non-palpable at this time B/L. Temperature gradient warm to warm B/L. CFT>3 delayed x 10 digits. No pedal edema noted NEURO: Protective sensation slightly diminished DERM: RLE: Lateral mid leg ulceration measuring approximately 2.2cm x 0.9cm x 0.5cm extending down to the level of muscle tissue. No active drainage or purulence, no malodor, no fluctuance or jackson wound erythema. An ulcer noted on the medial aspect of the 1st MPJ covered with black eschar 2 cm in diameter with hyperkeratotic edge. Base is mixed fibronecrotic. No drainage, no malodor, no probe to bone, no undermining. Another nonstageable ulcer noted on the plantar heel measuring 5 cm X 4 cm covered with black eschar. No drainage, no malodor, no probe to bone, no undermining. Additional ulceration noted to 1st interspace approx 1cm x 0.7cm x 0.1cm with maceration noted, fibrogranular wound base, no jackson wound erythema, no fluctuance, no tunneling or undermining. LLE: An ulcer noted on the medial aspect of the 1st MPJ covered with black esch ar measuring approximately 2 cm X 1 cm. Base is necrotic, with no drainage, no malodor, no probe to bone, no undermining or tunneling. Additional circular ulceration noted on the medial side of the hallux approximately 0.5 cm in diameter covered with black eschar. Base is necrotic, with no drainage, no malodor, no probe to bone, no undermining or tunneling. 2 ulcerations noted on the plantar aspect of the 4th and 5th MPJ measuring 2 cm x 1 cm x 0.1cm and 1.5 cm X 0.8 cm x 0.1cm covered with black eschar. Wound bases are necrotic, with no drainage, no malodor, no probe to bone, no undermining. Another non stageable ulcer noted on the plantar heel measuring 5.5 cm X 4.2 cm covered with black eschar. No drainage, Nno malodor, no probe to bone, no undermining. Ortho: No tenderness to palpation of B/L lower extremity ulcerations. MMT 3/5 B/L to all muscle groups - Neurological Exam Neurological Exam: Alert, Awake, Oriented x3 Assessment and Plan - Assessment and Plan (Free Text) Assessment: 73 year old male patient with bilateral chronic lower extremity ulcerations, clinically infected with MRSA Plan: Patient seen and evaluated at bedside Discussed plan with Dr. Cavanaugh B/L foot x-rays show no evidence of acute displaced fracture nor dislocation. No definitive evidence of cortical destructive changes seen. Questionable surface ulceration medial aspect 1st digit with surrounding soft tissue swelling; rule out cellulitis. Consider follow-up MRI for further evaluation Wound sites flushed with saline and dressings to bilateral LE applied using Santyl, ABD, DSD Wound culture + for MRSA - will need chcf abx Continue IV abx as per ID recommendations Vascular consult, Dr. Macias on board B/L venous duplex: no evidence of DVT Abdominal angiogram (08/24): RLE: Scattered calcific and noncalcific plaque in the common femoral and superficial femoral arteries with area of focal severe stenosis due in the distal 1/3 segment of the superficial femoral artery. Patent popliteal artery and below-knee arteries. LLE: Scattered calcific and noncalcific plaque in the common femoral and supe rficial femoral arteries with short segment area of severe stenosis in the distal 1/3 segment. Patent popliteal artery. Moderate segment stenosis of the proximal posterior tibial artery, stable with distal reconstitution to the level of the ankle. Patent peroneal and anterior tibial art eries with scattered calcific plaque. FARRUKH/PVR (08/25): B/L Moderate infrapopliteal occlusive disease with medial arterial calcification No plans for surgical intervention from podiatry standpoint at this time Will continue with local wound care Santyl discontinued - will switch to Silvasorb, DSD to B/L lower extremity wounds Podiatry will continue to follow patient while in house
--- NOTE | 2018-09-20 09:53 | CP.PCM.PN ---
Subjective - Date & Time of Evaluation Date of Evaluation: 09/20/18 Time of Evaluation: 13:15 - Subjective Subjective: Medicine Note for Dr. Carpenter's Service Patient was seen and examined at bedside. Patient denied any blood in his stool. Admits some rectal discomfort, otherwise ROS unremarkable. Objective - Vital Signs/Intake and Output Vital Signs (last 24 hours): Temp Pulse Resp BP Pulse Ox 97.9 F 76 20 125/64 96 09/19/18 23:15 09/19/18 23:15 09/19/18 23:15 09/19/18 23:15 09/19/18 23:15 - Medications Medications: Current Medications Acetaminophen (Tylenol 325mg Tab) 650 mg PO Q6 PRN PRN Reason: Pain, Mild (1-3) Last Admin: 09/18/18 06:00 Dose: 650 mg Collagenase (Santyl) 1 gm TOP DAILY [facility] Last Admin: 09/19/18 09:39 Dose: 1 applic Dicyclomine HCl (Bentyl) 10 mg PO QID [facility] Last Admin: 09/19/18 22:41 Dose: 10 mg Famotidine (Pepcid) 20 mg PO DAILY [facility] Last Admin: 09/19/18 09:39 Dose: 20 mg Vancomycin HCl 1 gm/ Sodium (Chloride) 250 mls @ 166.7 mls/hr IVPB Q24H [facility]; Protocol Stop: 09/21/18 09:01 Last Admin: 09/19/18 08:18 Dose: 166.7 mls/hr Insulin Human Regular (Novolin R) 0 unit SC ACHS [facility]; Protocol Last Admin: 09/20/18 08:24 Dose: Not Given Mesalamine (Canasa) 1,000 mg CO HS [facility] Stop: 10/01/18 22:01 Last Admin: 09/19/18 22:42 Dose: 1,000 mg Pantoprazole Sodium (Protonix Inj) 40 mg IVP Q12 [facility] Last Admin: 09/19/18 22:41 Dose: 40 mg Rosuvastatin Calcium (Crestor) 5 mg PO HS [facility] Last Admin: 09/19/18 22:41 Dose: 5 mg Sevelamer Carbonate (Renvela) 800 mg PO TIDCC [facility] Last Admin: 09/20/18 08:40 Dose: 800 mg Tamsulosin HCl (Flomax) 0.4 mg PO DAILY [facility] Last Admin: 09/19/18 09:39 Dose: 0.4 mg Vitamin B Complex/Vit C/Folic Acid (Nephro-Amita) 1 tab PO DAILY [facility] Last Admin: 09/19/18 09:39 Dose: 1 tab - Labs Labs: 09/19/18 06:35 09/19/18 06:35 PT 16.2 SECONDS (9.7-12.2) H 09/13/18 04:53 INR 1.5 09/13/18 04:53 APTT 39.9 SECONDS (21-34) H 09/13/18 04:53 - Additional Findings Additional findings: - Head Exam Head Exam: ATRAUMATIC, NORMAL INSPECTION - Eye Exam Eye Exam: EOMI, PERRL Pupil Exam: NORMAL ACCOMODATION, PERRL. absent: Irregular, Unequal - ENT Exam ENT Exam: Mucous Membranes Moist, Normal Oropharynx - Neck Exam Neck Exam: Normal Inspection - Respiratory Exam Respiratory Exam: Clear to Ausculation Bilateral, NORMAL BREATHING PATTERN - Cardiovascular Exam Cardiovascular Exam: REGULAR RHYTHM, +S1. absent: Gallop, Rubs - GI/Abdominal Exam GI & Abdominal Exam: Soft, Normal Bowel Sounds. absent: Rigid, Hyperactive Bowel Sounds - Extremities Exam Extremities Exam: Full ROM. absent: Pedal Edema - Back Exam Back Exam: NORMAL INSPECTION. absent: CVA tenderness (R), paraspinal tenderness - Neurological Exam Neurological Exam: Alert, Awake, CN II-XII Intact, Oriented x3 - Psychiatric Exam Psychiatric exam: Normal Affect, Normal Mood. absent: Depressed - Skin Skin Exam: Dry, Intact, Normal Color. absent: Diaphoretic, Petechiae Assessment and Plan - Assessment and Plan (Free Text) Plan: Bright Red Blood per Rectum - RESOLVED - GI consulted - Dr. Beltran - 1 episode 09/15/18 AM- no episodes since. - Will f/u recommendations Management: - Eliquis stopped - Started Protonix 40mg IVP Q12 - Type and Screen, 2 PRBCs ordered, will transfuse if needed during dialysis (consent in chart) - CBC Q6Hs - Heparin to NOT be given during dialysis Pulmonary Hypertension Right-sided Heart Failure Hypotension - resolved - Hypotension improved; stable - Patient transferred out of ICU on 09/13/18 - BNP 34,900 (was >175,000 on 01/10/18) - Cardiology consulted - Dr. Dockery Recommended repeat Echo and CTA to r/o pulmonary embolism(s) due to acute change in right sided heart failure as seen on ECHOs from 01/11/18 to 05/12/18 - Imaging: Previous ECHO 05/12/2018: LV ~ 50%, Decreased R ventricle systolic function, dilated right ventricle (RVSP 64.25, was 38.04 on ECHO from 01/11/18) Repeat ECHO: RVSP 60mmg, RA moderately dilated, RV moderately dilated, moderate to severe PHTN CTA to r/o PE: negative for PE Ascites - Diagnostic paracentesis- negative for SBP - s/p therapeutic paracentesis with IR on 09/11/18 - Ascites likely 2/2 to right sided heart failure PAD Multiple Foot Ulcers - ID consulted, Dr. Bailey; help appreciated Wound cultures (09/09/18) for left and right foot ulcer + for MRSA Blood cultures (09/07/18) negative Vancomycin 1gm MWF with dialysis, Santyl daily - Vascular surgery consulted --> no indications for any vascular surgery intervention at this time. - Podiatry consulted --> No plans for surgical intervention from podiatry standpoint at this time; Will continue with local wound care - Wound care consulted - Imaging: CT Angio Abd w ileofem runoff performed 08/24 with evidence of bilateral common femoral and superficial femoral artery disease with reconstitution distally, patent popliteal and below knee arteries. ESRD on HD - MWF - Nephrology consulted, Dr. Lopes, help appreciated - Continue management as per nephrology Afib - Eliquis 2.5mg PO BID - HELD in light of rectal bleeding DM - Accuchecks, hypoglycemic protocol - ISS - Crestor 5mg PO QHS BPH - Flomax Prophylactic Measures - GI PPX: Protonix Q12 - DVT PPX: SCDs, VTE c/i - Patient is out of JOY days, when patient is discharged, it will be to home DW Dr. Carpenter, Lourdes Goldman DO, PGY2 Disposition: Patient is medically stable for discharge home as per Dr. Carpenter. Patient is to be evaluated for skill home nursing and wound care. Wound care is as follows, to be done every 2 days. Patient is to have wounds cleaned with saline, dried down and Santyl applied. Once Santyl runs out, Silvasorb can be used instead. Patient must be placed in offloading boats. Patient is to receive Vancomycin MWF from 09/22/18-11/17/18 with weekly labs CBC, CMP, ESR, CRP, and Vanco trough. This was approved by ID and Nephrology.
[2018-09-20] MEDS ORDERED: SILVASORB ANTIMICROBIAL WOUND GEL TOP SCH (10:00)
[2018-09-20] MEDS: Multivitamin Vitamin B Complex (Nephro-Vite) Tab PO SCH (10:41)
--- NOTE | 2018-09-20 13:04 | PN ---
DATE: 09/20/2018 LOCATION: 667, bed B. SUBJECTIVE: This 73-year-old male seen and examined early in rounds without significant clinical changes or reported active bleeding with clean dressing of his bilateral feet. No complaint of chest pain, palpitation or extremities pain, significant shortness of breath or evidence of active GI bleeding. No chills or fever. However, the patient still have moderate amount of ascites by physical examination. The entire chart is reviewed including but not limited to the most recent lab and radiology study results and today's blood glucose level 148. Rest of the results still pending. However, the patient still reported to have low hemoglobin and hematocrit with thrombocytopenia, hyponatremia with low albumin as well as low total protein. PHYSICAL EXAMINATION: GENERAL: A 73-year-old male. VITAL SIGNS: Afebrile with pulse of 72, respiratory rate 20 to 22 with blood pressure of 130/62. HEENT: Showed pale, dry oral mucous membrane. Nonicteric sclerae. LUNGS: Few scattered crepitation. Decreased air entry at bases. HEART: Positive S1 and S2. ABDOMEN: Soft with mild generalized tenderness. No mass or organomegaly. No rebound tenderness or guarding. EXTREMITIES: Without significant clubbing or cyanosis but lower extremity edematous changes. The patient still have again by physical examination moderate amount of ascites with slight generalized tenderness and distention. The previously mentioned chronic lower extremity ulceration is seen and covered with clean dressing. IMPRESSION: 1. Ascites, most likely secondary to right-sided heart failure. 2. Hypochromic microcytic anemia secondary to chronic disease. No evidence of active gastrointestinal bleeding in the meantime. 3. Reported pleural effusion bilaterally. 4. End-stage renal disease on hemodialysis. 5. Peripheral arterial disease by history with lower extremities chronic ulcerations. 6. Known history of pulmonary hypertension, atrial fibrillation, benign prostatic hypertrophy as well as poorly controlled diabetes mellitus. SUGGESTIONS: 1. Continue current management. 2. Again, the patient is in need for ultrasound-guided abdominal paracentesis with thoracocentesis. 3. Repeat stool for occult blood. 4. No aggressive GI workup in the meantime and medical management to be continued. Samra Tyler MD [facility] # [id number]
--- NOTE | 2018-09-20 13:27 | CP.PCM.PN ---
Subjective - Date & Time of Evaluation Date of Evaluation: 09/20/18 Time of Evaluation: 13:25 - Subjective Subjective: for HD today poor historian discharge being planned unable to obtain ROS due to above Objective - Vital Signs/Intake and Output Vital Signs (last 24 hours): Temp Pulse Resp BP Pulse Ox 97.9 F 76 20 125/64 96 09/19/18 23:15 09/19/18 23:15 09/19/18 23:15 09/19/18 23:15 09/19/18 23:15 - Medications Medications: Current Medications Acetaminophen (Tylenol 325mg Tab) 650 mg PO Q6 PRN PRN Reason: Pain, Mild (1-3) Last Admin: 09/18/18 06:00 Dose: 650 mg Dicyclomine HCl (Bentyl) 10 mg PO QID [facility] Last Admin: 09/20/18 10:40 Dose: 10 mg Famotidine (Pepcid) 20 mg PO DAILY [facility] Last Admin: 09/20/18 10:40 Dose: 20 mg Vancomycin HCl 1 gm/ Sodium (Chloride) 250 mls @ 166.7 mls/hr IVPB Q24H [facility]; Protocol Stop: 09/21/18 09:01 Last Admin: 09/19/18 08:18 Dose: 166.7 mls/hr Insulin Human Regular (Novolin R) 0 unit SC ACHS DON; Protocol Last Admin: 09/20/18 12:36 Dose: 1 units Mesalamine (Canasa) 1,000 mg MA HS DON Stop: 10/01/18 22:01 Last Admin: 09/19/18 22:42 Dose: 1,000 mg Pantoprazole Sodium (Protonix Inj) 40 mg IVP Q12 [facility] Last Admin: 09/20/18 10:40 Dose: 40 mg Rosuvastatin Calcium (Crestor) 5 mg PO HS [facility] Last Admin: 09/19/18 22:41 Dose: 5 mg Sevelamer Carbonate (Renvela) 800 mg PO TIDCC [facility] Last Admin: 09/20/18 12:37 Dose: 800 mg Tamsulosin HCl (Flomax) 0.4 mg PO DAILY [facility] Last Admin: 09/20/18 10:40 Dose: 0.4 mg Vitamin B Complex/Vit C/Folic Acid (Nephro-Amita) 1 tab PO DAILY [facility] Last Admin: 09/20/18 10:41 Dose: 1 tab - Labs Labs: 09/19/18 06:35 09/19/18 06:35 PT 16.2 SECONDS (9.7-12.2) H 09/13/18 04:53 INR 1.5 09/13/18 04:53 APTT 39.9 SECONDS (21-34) H 09/13/18 04:53 - Constitutional Appears: Confused, Chronically Ill - Eye Exam Eye Exam: EOMI Additional comments: facial ecchymoses - Neck Exam Neck Exam: Full ROM. absent: Lymphadenopathy - Respiratory Exam Respiratory Exam: Decreased Breath Sounds. absent: Accessory Muscle Use - Cardiovascular Exam Cardiovascular Exam: REGULAR RHYTHM. absent: Rubs - GI/Abdominal Exam GI & Abdominal Exam: Distended. absent: Rebound Additional comments: ascites - Extremities Exam Extremities Exam: Pedal Edema - Neurological Exam Neurological Exam: Alert - Psychiatric Exam Psychiatric exam: Normal Affect Assessment and Plan - Assessment and Plan (Free Text) Plan: HD today, on maint schedule on AB for foot infection monitor ascites AB to be continued at outpatient HD
--- NOTE | 2018-09-20 15:05 | CP.PCM.PN ---
<Albert Chester - Last Filed: 09/20/18 17:21> Subjective - Date & Time of Evaluation Date of Evaluation: 09/20/18 Time of Evaluation: 10:15 - Subjective Subjective: PGY2 Cardiology note for Dr. Dockery Patient seen and examined this morning at bedside. Patient was able to get some sleep last night. He is feeling better today and has no complaints at this time. Denies any chest pain or shortness of breath. Objective - Vital Signs/Intake and Output Vital Signs (last 24 hours): Temp Pulse Resp BP Pulse Ox 97.9 F 76 20 125/64 96 09/19/18 23:15 09/19/18 23:15 09/19/18 23:15 09/19/18 23:15 09/19/18 23:15 - Medications Medications: Current Medications Acetaminophen (Tylenol 325mg Tab) 650 mg PO Q6 PRN PRN Reason: Pain, Mild (1-3) Last Admin: 09/18/18 06:00 Dose: 650 mg Dicyclomine HCl (Bentyl) 10 mg PO QID [facility] Last Admin: 09/20/18 10:40 Dose: 10 mg Famotidine (Pepcid) 20 mg PO DAILY [facility] Last Admin: 09/20/18 10:40 Dose: 20 mg Vancomycin HCl 1 gm/ Sodium (Chloride) 250 mls @ 166.7 mls/hr IVPB Q24H [facility]; Protocol Stop: 09/21/18 09:01 Last Admin: 09/19/18 08:18 Dose: 166.7 mls/hr Insulin Human Regular (Novolin R) 0 unit SC ACHS [facility]; Protocol Last Admin: 09/20/18 12:36 Dose: 1 units Mesalamine (Canasa) 1,000 mg MT HS [facility] Stop: 10/01/18 22:01 Last Admin: 09/19/18 22:42 Dose: 1,000 mg Pantoprazole Sodium (Protonix Inj) 40 mg IVP Q12 [facility] Last Admin: 09/20/18 10:40 Dose: 40 mg Rosuvastatin Calcium (Crestor) 5 mg PO HS [facility] Last Admin: 09/19/18 22:41 Dose: 5 mg Sevelamer Carbonate (Renvela) 800 mg PO TIDCC [facility] Last Admin: 09/20/18 12:37 Dose: 800 mg Tamsulosin HCl (Flomax) 0.4 mg PO DAILY [facility] Last Admin: 09/20/18 10:40 Dose: 0.4 mg Vitamin B Complex/Vit C/Folic Acid (Nephro-Amita) 1 tab PO DAILY [facility] Last Admin: 09/20/18 10:41 Dose: 1 tab - Labs Labs: 09/19/18 06:35 09/19/18 06:35 PT 16.2 SECONDS (9.7-12.2) H 09/13/18 04:53 INR 1.5 09/13/18 04:53 APTT 39.9 SECONDS (21-34) H 09/13/18 04:53 - Additional Findings Additional findings: - Constitutional Appears: Cachectic, Chronically Ill - Head Exam Additional comments: healing ecchymosis across entire face - Eye Exam Eye Exam: EOMI - ENT Exam ENT Exam: Mucous Membranes Moist - Neck Exam Neck exam: Negative for: Lymphadenopathy, Tenderness - Respiratory Exam Respiratory Exam: Decreased Breath Sounds, NORMAL BREATHING PATTERN. absent: Accessory Muscle Use, Rales, Rhonchi, Wheezes, Respiratory Distress - Cardiovascular Exam Cardiovascular Exam: REGULAR RHYTHM, +S1, +S2 - GI/Abdominal Exam GI & Abdominal Exam: Soft. absent: Distended, Firm, Guarding, Rigid, Tenderness - Extremities Exam Extremities exam: Negative for: calf tenderness, pedal edema Additional comments: pressure ulcer boots in place b/l AV fistula on right arm - Neurological Exam Neurological exam: Alert, Oriented x3 - Psychiatric Exam Psychiatric exam: Normal Affect, Normal Mood - Skin Skin Exam: Dry, Warm Assessment and Plan - Assessment and Plan (Free Text) Plan: Pulmonary Hypertension of Unknown Etiology Right-sided Heart Failure Hypotension Denies any chest pain or previous cardiac history previous ECHO 05/12/2018: LV ~ 50%, Decreased R ventricle systolic function, dilated right ventricle (RVSP 64.25, was 38.04 on ECHO from 01/11/18) * repeat ECHO pending to re-assess pulmonary HTN Recommend CTA to r/o pulmonary embolism(s) due to acute change in right sided heart failure as seen on ECHOs from 01/11/18 to 05/12/18. BNP 34,900 (was >175,000 on 01/10/18) Continue current medical management PAD Foot Ulcers Wound Infection - MRSA+ Vascular surgery consulted * no indications for any vascular surgery intervention at this time. ID consulted Wound care consulted CT Angio Abd w ileofem runoff performed 08/24 with evidence of bilateral common femoral and superfical femoral artery disease with reconstitution distally, patent popliteal and below knee arteries. Wound cultures (09/09/18) for left and right foot ulcer + for MRSA Blood cultures (09/07/18) negative abx as per ID Ascities GI consulted Paracentsis negative for SBP Ascities likely 2/2 to right sided heart failure Afib continue eliquis ESRD on HD Nephrology consulted continue management as per nephrology DISPO: Patient is stable from cardiac standpoint. Continue current medication regiment. Case discussed with Dr. Sarkis Chester PGY2 <Oz Dockery - Last Filed: 09/20/18 22:05> Objective - Vital Signs/Intake and Output Vital Signs (last 24 hours): Temp Pulse Resp BP Pulse Ox 97.2 F L 82 18 82/78 L 99 09/20/18 18:20 09/20/18 18:20 09/20/18 18:20 09/20/18 18:20 09/20/18 18:20 - Labs Labs: 09/19/18 06:35 09/19/18 06:35 PT 16.2 SECONDS (9.7-12.2) H 09/13/18 04:53 INR 1.5 09/13/18 04:53 APTT 39.9 SECONDS (21-34) H 09/13/18 04:53 Assessment and Plan - Assessment and Plan (Free Text) Plan: Patient seen and evaluated personally by me. Plan of care d/w the medical technicians and as documented
[2018-09-20 15:51] VITALS: RESP 18
--- NOTE | 2018-09-20 17:26 | PCM.HF ---
Heart Failure Core Measure - Heart Failure Ejection Fraction: 40 % or Greater RONALD Inhibitor Prescribed: No Contraindication/Reason for not providing: esrd/ EF>45 Beta-Nick Prescribed: None Contraindication/Reason for not providing: D/C SECONDARY TO BRADYCARDIA Angiotensin II Receptor Nick Prescribed: No Contraindication/Reason for not providing: ESRD/ EF>45 AnticoagulationTherapy for Atrial Fibrillation/Atrialflutter: Yes Aldosterone Antagonist Prescribed: No Contraindication/Reason for not providing: EF>45 Hydralazine Nitrate Prescribed: No Contraindication/Reason for not providing: EF>45 Implantable Cardioverter Defibrillator Therapy: No Contraindication/Reason for not providing: EF>45 Cardiac Resynchronization Therapy Prescribed: No Contraindication/Reason for not providing: EF>45 - Follow up Will be discharged to: Home Follow Up Date (must be within 7 days from discharge): 09/22/18 Follow Up Time: 13:00
--- NOTE | 2018-09-20 18:26 | CP.PCM.PN ---
Subjective - Date & Time of Evaluation Date of Evaluation: 09/20/18 Time of Evaluation: 10:00 - Subjective Subjective: discusssed on rounds afeb weak nad Objective - Vital Signs/Intake and Output Vital Signs (last 24 hours): Temp Pulse Resp BP Pulse Ox 98 F 61 18 96/62 L 100 09/20/18 14:50 09/20/18 14:50 09/20/18 14:50 09/20/18 17:30 09/20/18 14:50 - Medications Medications: Current Medications Acetaminophen (Tylenol 325mg Tab) 650 mg PO Q6 PRN PRN Reason: Pain, Mild (1-3) Last Admin: 09/18/18 06:00 Dose: 650 mg Dicyclomine HCl (Bentyl) 10 mg PO QID [facility] Last Admin: 09/20/18 15:56 Dose: Not Given Famotidine (Pepcid) 20 mg PO DAILY [facility] Last Admin: 09/20/18 10:40 Dose: 20 mg Vancomycin HCl 1 gm/ Sodium (Chloride) 250 mls @ 166.7 mls/hr IVPB Q24H DON; Protocol Stop: 09/21/18 09:01 Last Admin: 09/19/18 08:18 Dose: 166.7 mls/hr Insulin Human Regular (Novolin R) 0 unit SC ACHS DON; Protocol Last Admin: 09/20/18 12:36 Dose: 1 units Mesalamine (Canasa) 1,000 mg OR HS DON Stop: 10/01/18 22:01 Last Admin: 09/19/18 22:42 Dose: 1,000 mg Pantoprazole Sodium (Protonix Inj) 40 mg IVP Q12 DON Last Admin: 09/20/18 10:40 Dose: 40 mg Rosuvastatin Calcium (Crestor) 5 mg PO HS DON Last Admin: 09/19/18 22:41 Dose: 5 mg Sevelamer Carbonate (Renvela) 800 mg PO TIDCC DON Last Admin: 09/20/18 12:37 Dose: 800 mg Tamsulosin HCl (Flomax) 0.4 mg PO DAILY DON Last Admin: 09/20/18 10:40 Dose: 0.4 mg Vitamin B Complex/Vit C/Folic Acid (Nephro-Amita) 1 tab PO DAILY [facility] Last Admin: 09/20/18 10:41 Dose: 1 tab - Labs Labs: 09/19/18 06:35 09/19/18 06:35 PT 16.2 SECONDS (9.7-12.2) H 09/13/18 04:53 INR 1.5 09/13/18 04:53 APTT 39.9 SECONDS (21-34) H 09/13/18 04:53 - Constitutional Appears: Non-toxic, Cachectic, Chronically Ill - Head Exam Head Exam: NORMAL INSPECTION. absent: ATRAUMATIC, NORMOCEPHALIC - Eye Exam Eye Exam: EOMI, Normal appearance, Periorbital swelling, PERRL. absent: Periorbital tenderness Pupil Exam: NORMAL ACCOMODATION, PERRL - ENT Exam ENT Exam: Mucous Membranes Moist, Normal Exam - Neck Exam Neck Exam: Full ROM, Normal Inspection. absent: Lymphadenopathy - Respiratory Exam Respiratory Exam: Clear to Ausculation Bilateral, NORMAL BREATHING PATTERN - Cardiovascular Exam Cardiovascular Exam: REGULAR RHYTHM, +S1, +S2. absent: Murmur - GI/Abdominal Exam GI & Abdominal Exam: Soft, Normal Bowel Sounds. absent: Tenderness - Rectal Exam Rectal Exam: Deferred - Exam Exam: NORMAL INSPECTION - Extremities Exam Extremities Exam: Full ROM, Normal Capillary Refill, Normal Inspection. absent: Joint Swelling, Pedal Edema - Back Exam Back Exam: absent: CVA tenderness (L), CVA tenderness (R), NORMAL INSPECTION - Neurological Exam Neurological Exam: Alert, Awake, CN II-XII Intact, Oriented x3. absent: Normal Gait - Psychiatric Exam Psychiatric exam: Depressed, Normal Affect - Skin Skin Exam: Dry, Pallor. absent: Intact, Normal Color Assessment and Plan (1) Anemia Status: Acute (2) Atrial fibrillation Status: Acute (3) Bilateral lower leg cellulitis Status: Acute (4) CHF (congestive heart failure) Status: Acute (5) Cellulitis and abscess of left leg Status: Acute (6) Cardiomyopathy Status: Acute (7) PVD (peripheral vascular disease) Status: Acute
[2018-09-20 19:02] VITALS: PULSE 82; TEMP 97.2; O2SAT 99
[2018-09-20 19:06] VITALS: BP 82/78
--- NOTE | 2018-09-26 06:02 | DS ---
HISTORY OF PRESENT ILLNESS AND HOSPITAL COURSE: Mr. Ralph was admitted to the hospital with a chief complaint of fall, multiple injuries to the body and ____ face. The patient became hypotensive, went to the ICU, received resuscitation. The patient received physical therapy with gradual improvement. The patient was transferred to the floor. Physical therapy. Discharged to be followed up with home physical therapy. DIAGNOSES: Chronic renal failure, multiple trauma, hypertension, hypovolemia, diabetes, peripheral vascular disease. Mia Carpenter MD
--- NOTE | 2018-09-27 09:25 | PQF ---
PROVIDER RESPONSE TEXT: Sepsis Ruled In REVIEWER QUERY TEXT: Rule Out Sepsis Clarification Rule out Sepsis is documented in the Medical Record. Please clarify whether: -- Patient has sepsis - Please document confirmed, suspected or probable causative organism - Please document confirmed, suspected or probable localized infection - Please clarify if sepsis is related to a device - Please clarify if sepsis was present on admission -- Sepsis was ruled out (include corresponding diagnosis for patient?s clinical picture and treatment ) -- Patient had sepsis which is resolved -- Other, please specify The patient's Clinical Indicators include: SEPSIS DOCIMENTED FROM 09/08 TO 09/13 PATIENT TRREATED FOR POSSIBLE SEPSIS. ====PLEASE CLARIFY AND DOCUMENT IF SEPSIS WAS R/I==OR ==R/O Query created by: Negrita Hazel on 09/26/2018 3:59 PM Electronically signed by: Mia Carpenter MD 09/27/2018 9:23 AM
== END 2018-09-20 21:00 | disposition home health service (06) | DRG 871 ==
LOC: C.ER 18:55 → C.9I 09-08 00:59 → UNDODISIN 09-12 11:50 → C.6T 09-13 22:29
PROVIDERS: ADMIT Internal Medicine Pulmonary Disease; ATTEND Internal Medicine Pulmonary Disease
PROC: 5A1D70Z Performance of Urinary Filtration, Intermittent, Less than 6 Hours Per Day (ICD-10-PCS; principal; 2018-09-08)
PROC: 0W9G3ZX Drainage of Peritoneal Cavity, Percutaneous Approach, Diagnostic (ICD-10-PCS; 2018-09-10)
DX: A41.9 Sepsis, unspecified organism (principal); N18.6 End stage renal disease; K65.2 Spontaneous bacterial peritonitis; K65.9 Peritonitis, unspecified; R18.8 Other ascites; I42.9 Cardiomyopathy, unspecified; I50.22 Chronic systolic (congestive) heart failure; L03.115 Cellulitis of right lower limb; I13.2 Hypertensive heart and chronic kidney disease with heart failure and with stage 5 chronic kidney disease, or end stage renal disease; E87.1 Hypo-osmolality and hyponatremia; L03.116 Cellulitis of left lower limb; I48.92 Unspecified atrial flutter; L97.829 Non-pressure chronic ulcer of other part of left lower leg with unspecified severity; L97.819 Non-pressure chronic ulcer of other part of right lower leg with unspecified severity; J98.11 Atelectasis; K62.5 Hemorrhage of anus and rectum; L02.416 Cutaneous abscess of left lower limb; I48.2 Chronic atrial fibrillation; E11.22 Type 2 diabetes mellitus with diabetic chronic kidney disease; Z99.2 Dependence on renal dialysis; E11.621 Type 2 diabetes mellitus with foot ulcer; I27.20 Pulmonary hypertension, unspecified; D63.1 Anemia in chronic kidney disease; E11.649 Type 2 diabetes mellitus with hypoglycemia without coma; Z79.4 Long term (current) use of insulin; F03.90 Unspecified dementia, unspecified severity, without behavioral disturbance, psychotic disturbance, mood disturbance, and anxiety; E11.51 Type 2 diabetes mellitus with diabetic peripheral angiopathy without gangrene; S00.12XA Contusion of left eyelid and periocular area, initial encounter; S00.11XA Contusion of right eyelid and periocular area, initial encounter; W19.XXXA Unspecified fall, initial encounter; D50.9 Iron deficiency anemia, unspecified; D69.6 Thrombocytopenia, unspecified; E78.5 Hyperlipidemia, unspecified; I27.29 Other secondary pulmonary hypertension; I50.82 Biventricular heart failure; I95.89 Other hypotension; K64.8 Other hemorrhoids; K74.60 Unspecified cirrhosis of liver; L97.509 Non-pressure chronic ulcer of other part of unspecified foot with unspecified severity; N40.0 Benign prostatic hyperplasia without lower urinary tract symptoms; Z74.01 Bed confinement status